=== PATIENT | female | born 1945 | race Caucasian/White ===

== ENCOUNTER → 2017-09-06 07:36 | Outpatient (CLI) | payer MEDICARE, SELFPAY ==
[2017-09-06 10:29] LABS: Absolute Neutrophil Count 3.8 X10^3/uL (2.0-7.7); Basophil# 0.06 X10^3/uL; Basophil% 0.9 % (0-1); Eosinophil# 0.18 X10^3/uL; Eosinophils% 2.7 % (0-5); Hematocrit 45.6 % (37-47); Lymphocyte % 31.4 % (19-41); Mean Corp Hgb Conc 32.9 g/gl (32-36); Mean Corpuscular Hgb 31.6 pg (27.0-32.0); Mean Corpuscular Volume 96.2 fL (81-99); Mean Platelet Vol. 10.3 fl (6.2-12.0); Monocyte# 0.51 X10^3/uL; Monocyte% 7.6 % (0-10); Neutrophil # 3.83 X10^3/uL (2.7-7.7); Neutrophil % 57.3 % (47-70); Platelet Count 353 K/mm3 (150-450); RBC Distribution Width SD 45.3 fl (35.1-43.9); Red Blood Count 4.74 M/mm3 (4.2-5.4); White Blood Count 6.7 K/mm3 (4.4-11.0)
[2017-09-06 10:43] LABS: POSITIVE COUNT NO; POSITIVE DIFFERENTIAL NO; POSITIVE MORPHOLOGY NO
[2017-09-06 10:50] LABS: Hemoglobin A1c 5.6 % (4.2-6.3)
[2017-09-06 10:58] LABS: AST(SGOT) 20 U/L (15-37); Alanine Aminotransfer ALT/SGPT 28 U/L (13-56); Albumin, Serum 3.8 g/dL (3.2-5.0); Alkaline Phosphatase 72 U/L (45-117); Anion Gap 7 (5-15); BUN 19 mg/dL (7-18); BUN/Creat Ratio 19.1 RATIO (10-20); Calcium,Total 8.5 mg/dL (8.5-10.1); Chloride 106 mmol/L (98-107); Creatinine, Serum 0.99 mg/dL (0.55-1.02); EST Glomerular Filtration Rate 59 mL/min (>60); Est Glom Filt Rate - Afr Amer 71 mL/min (>60); Globulin 3.8 g/dL (2.2-4.2); Glucose 93 mg/dL (74-106); Magnesium 2.1 mg/dL (1.6-2.6); Potassium 4.1 mmol/L (3.5-5.1); Protein, Total 7.6 g/dL (6.4-8.2); Sodium Level 141 mmol/L (136-145); Thyroid Stim Hormone (TSH) 6.74 uIU/mL (0.358-3.74)
== END ==
PROVIDERS: Family Provider Family Medicine; PCP Family Medicine; Visit Provider Family Medicine
DX: E11.8 Type 2 diabetes mellitus with unspecified complications (principal); W19.XXXA Unspecified fall, initial encounter
CPT/HCPCS: 36415; 80053; 83036; 83735; 84443; 85025

== ENCOUNTER → 2017-10-31 14:18 | Outpatient (CLI) | payer MEDICARE, SELFPAY ==
[2017-10-31 16:19] LABS: T4 Free Direct 0.92 ng/dL (0.76-1.46)
== END ==
PROVIDERS: Family Provider Family Medicine; PCP Family Medicine; Visit Provider Family Medicine
DX: R94.6 Abnormal results of thyroid function studies (principal)
CPT/HCPCS: 84439; 84443

== ENCOUNTER → 2018-01-09 12:46 | Outpatient (CLI) | payer MEDICARE, SELFPAY ==
--- NOTE | 2018-01-11 08:23 | UEAS ---
Arterial Study - Arterial Study Arterial Study: date of scan: 01-09-18 interpreting physician: Dr. Deni Gruber history:subclavian steal syndrome interpretation: Right upper extremity with decreased waveform noted biphasic flow from the radial and ulnar arteries. With the digit brachial index 0.66. Left upper extremity with triphasic flow noted at the wrist to the radial and ulna with the digit brachial index 0.87. Impression: 1. Moderate occlusive disease of the right upper extremity with digit brachial index 0.66. 2. Left upper extremity with normal digit brachial index is 0.87 and triphasic flow
== END ==
PROVIDERS: Family Provider Family Medicine; PCP Family Medicine; Visit Provider Surgery Vascular Surgery
DX: G45.8 Other transient cerebral ischemic attacks and related syndromes (principal); I65.23 Occlusion and stenosis of bilateral carotid arteries; Z86.73 Personal history of transient ischemic attack (TIA), and cerebral infarction without residual deficits; Z87.891 Personal history of nicotine dependence
CPT/HCPCS: 93880; 93923; 93930

== ENCOUNTER → 2018-03-23 14:40 | Outpatient (CLI) | payer MEDICARE, SELFPAY ==
[2018-03-23 16:07] LABS: Absolute Lymphocyte Count 1.82 X10^3/ul (0.83-4.51); Absolute Neutrophil Count 3.9 X10^3/uL (2.0-7.7); Basophil# 0.04 X10^3/uL; Basophil% 0.6 % (0-1); Eosinophil# 0.14 X10^3/uL; Eosinophils% 2.2 % (0-5); Hematocrit 41.4 % (37-47); Hemoglobin 13.6 g/dl (12.0-15.0); Lymphocyte # 1.82 X10^3/ul (4.0); Lymphocyte % 28.1 % (19-41); Mean Corp Hgb Conc 32.9 g/gl (32-36); Mean Corpuscular Hgb 32.8 pg (27.0-32.0); Mean Corpuscular Volume 99.8 fL (81-99); Monocyte# 0.58 X10^3/uL; Neutrophil # 3.89 X10^3/uL (2.7-7.7); Neutrophil % 59.9 % (47-70); Platelet Count 305 K/mm3 (150-450); RBC Distribution Width CV 12.6 % (11.6-14.6); RBC Distribution Width SD 44.9 fl (35.1-43.9); Red Blood Count 4.15 M/mm3 (4.2-5.4); White Blood Count 6.5 K/mm3 (4.4-11.0)
[2018-03-23 16:21] LABS: POSITIVE COUNT NO; POSITIVE DIFFERENTIAL NO; POSITIVE MORPHOLOGY NO
[2018-03-23 16:36] LABS: Vitamin D,25 Hydroxy 33.2 ng/mL (29.95-100.01)
[2018-03-23 16:41] LABS: ALB/GLOB Ratio 0.8 RATIO (0.9-2.4); AST(SGOT) 20 U/L (15-37); Alanine Aminotransfer ALT/SGPT 28 U/L (13-56); Albumin, Serum 3.4 g/dL (3.2-5.0); Alkaline Phosphatase 91 U/L (45-117); Anion Gap 7 (5-15); BUN 24 mg/dL (7-18); BUN/Creat Ratio 23.1 RATIO (10-20); CPK Total, Creatine Kinase 48 U/L (26-192); CRP 7.34 mg/L (0.0-3.0); Calcium,Total 8.7 mg/dL (8.5-10.1); Chloride 104 mmol/L (98-107); Creatinine, Serum 1.04 mg/dL (0.55-1.02); EST Glomerular Filtration Rate 56 mL/min (>60); Est Glom Filt Rate - Afr Amer 67 mL/min (>60); Glucose 81 mg/dL (74-106); Magnesium 2.1 mg/dL (1.6-2.6); Potassium 3.7 mmol/L (3.5-5.1); Protein, Total 7.4 g/dL (6.4-8.2); Sodium Level 138 mmol/L (136-145); Thyroid Stim Hormone (TSH) 4.74 uIU/mL (0.358-3.74)
== END ==
PROVIDERS: Family Provider Family Medicine; PCP Family Medicine; Visit Provider Family Medicine
DX: E11.8 Type 2 diabetes mellitus with unspecified complications (principal); M79.10 Myalgia, unspecified site
CPT/HCPCS: 36415; 80053; 82306; 82550; 83735; 84443; 85025; 86140

== ENCOUNTER → 2018-08-22 | Outpatient (CLI) | payer MEDICARE, SELFPAY ==
--- NOTE | 2018-08-22 13:33 | BI_ITS ---
MAMMOGRAPHY - BILATERAL SCREENING REASON FOR EXAM: Female, 73 years old. Routine annual screening examination. PERTINENT HISTORY: Grandmother with breast cancer. TECHNIQUE: Digital bilateral breast rosalba (3D mammographic acquisition) in the CC and MLO projections. 2-D mediolateral oblique (MLO) and craniocaudad (CC) views of both breasts were obtained. CAD: Full Field Digital Mammography with Computer Added Detection was performed. COMPARISON: Comparison is made with prior study June 14, 2016 and January 16, 2015. FINDINGS: Breast Composition: The breasts are almost entirely fatty. There are no dominant masses or suspicious calcifications. Stable 7 mm well-defined nodule in the upper outer aspect of the left breast was likely representing a small intramammary No other significant abnormalities are identified. There has been no significant change since the prior study. BI/SCREENING MAMM (CAD), BILAT IMPRESSION: Stable bilateral screening mammogram. Yearly follow-up mammogram recommended. (A) ASSESSMENT CATEGORY: BIRADS Category 2: Benign. A letter regarding these results will be sent to the patient by the facility within 30 days. Approximately 10% of breast cancers are not detected by mammography. A normal mammogram should not delay biopsy of a clinically suspicious abnormality. [id number] Electronically Signed: Felipe Novak, at 15:27 EDT , Service support ,
== END | disposition home or self-care (01) ==
LOC: OPBI 13:31
PROVIDERS: Family Provider Family Medicine; PCP Family Medicine; Referring Provider Family Medicine; Visit Provider Family Medicine
DX: Z12.31 Encounter for screening mammogram for malignant neoplasm of breast (principal)
CPT/HCPCS: 77063; 77067

== ENCOUNTER → 2018-09-19 16:46 | Outpatient (CLI) | payer MEDICARE, SELFPAY ==
[2018-09-19 17:43] LABS: Absolute Lymphocyte Count 2.21 X10^3/ul (0.83-4.51); Absolute Neutrophil Count 4.7 X10^3/uL (2.0-7.7); Basophil# 0.03 X10^3/uL; Basophil% 0.4 % (0-1); Eosinophil# 0.19 X10^3/uL; Eosinophils% 2.4 % (0-5); Hematocrit 44.3 % (37-47); Hemoglobin 14.6 g/dl (12.0-15.0); Lymphocyte # 2.21 X10^3/ul (4.0); Lymphocyte % 28.2 % (19-41); Mean Corpuscular Hgb 31.3 pg (27.0-32.0); Mean Corpuscular Volume 95.1 fL (81-99); Mean Platelet Vol. 10.3 fl (6.2-12.0); Monocyte# 0.69 X10^3/uL; Monocyte% 8.8 % (0-10); Neutrophil % 60.1 % (47-70); Platelet Count 309 K/mm3 (150-450); RBC Distribution Width CV 13.7 % (11.6-14.6); RBC Distribution Width SD 46.4 fl (35.1-43.9); Red Blood Count 4.66 M/mm3 (4.2-5.4); White Blood Count 7.8 K/mm3 (4.4-11.0)
[2018-09-19 17:47] LABS: POSITIVE COUNT NO; POSITIVE DIFFERENTIAL NO; POSITIVE MORPHOLOGY NO
[2018-09-19 18:10] LABS: ALB/GLOB Ratio 1.1 RATIO (0.9-2.4); AST(SGOT) 25 U/L (15-37); Alanine Aminotransfer ALT/SGPT 35 U/L (13-56); Albumin, Serum 3.7 g/dL (3.2-5.0); Alkaline Phosphatase 88 U/L (45-117); Anion Gap 8 (5-15); BUN 21 mg/dL (7-18); BUN/Creat Ratio 22.1 RATIO (10-20); Calcium,Total 8.7 mg/dL (8.5-10.1); Chloride 107 mmol/L (98-107); Creatinine, Serum 0.95 mg/dL (0.55-1.02); EST Glomerular Filtration Rate 61 mL/min (>60); Est Glom Filt Rate - Afr Amer 74 mL/min (>60); Globulin 3.4 g/dL (2.2-4.2); Glucose 86 mg/dL (74-106); Potassium 4.1 mmol/L (3.5-5.1); Protein, Total 7.1 g/dL (6.4-8.2); Sodium Level 140 mmol/L (136-145); Thyroid Stim Hormone (TSH) 4.19 uIU/mL (0.358-3.74)
== END ==
PROVIDERS: Family Provider Family Medicine; PCP Family Medicine; Visit Provider Nurse Practitioner Adult Health
DX: R53.83 Other fatigue (principal)
CPT/HCPCS: 36415; 80053; 84443; 85025

== ENCOUNTER → 2018-11-14 10:30 | Outpatient (CLI) | payer MEDICARE, SELFPAY ==
[2018-11-14 12:32] LABS: Anion Gap 6 (5-15); BUN 29 mg/dL (7-18); BUN/Creat Ratio 26.6 RATIO (10-20); Chloride 106 mmol/L (98-107); Creatinine, Serum 1.09 mg/dL (0.55-1.02); EST Glomerular Filtration Rate 53 mL/min (>60); Est Glom Filt Rate - Afr Amer 64 mL/min (>60); Glucose 96 mg/dL (74-106); Magnesium 2.1 mg/dL (1.6-2.6); Potassium 4.4 mmol/L (3.5-5.1); Sodium Level 139 mmol/L (136-145)
[2018-11-14 16:13] LABS: ALB/GLOB Ratio 1.2 RATIO (0.9-2.4); AST(SGOT) 21 U/L (15-37); Alanine Aminotransfer ALT/SGPT 29 U/L (13-56); Albumin, Serum 3.6 g/dL (3.2-5.0); Alkaline Phosphatase 73 U/L (45-117); Globulin 2.9 g/dL (2.2-4.2); Protein, Total 6.5 g/dL (6.4-8.2)
== END ==
PROVIDERS: Family Provider Family Medicine; PCP Family Medicine; Referring Provider Family Medicine; Visit Provider Family Medicine
DX: R42 Dizziness and giddiness (principal)
CPT/HCPCS: 36415; 80048; 80053; 83735

== ENCOUNTER → 2019-04-16 10:31 | Outpatient (CLI) | payer MEDICARE, SELFPAY ==
[2019-04-16 12:35] LABS: Absolute Lymphocyte Count 1.68 X10^3/uL (0.83-4.51); Absolute Neutrophil Count 6.6 X10^3/uL (2.0-7.7); Basophil# 0.06 X10^3/uL; Basophil% 0.6 % (0-1); Eosinophil# 0.07 X10^3/uL; Eosinophils% 0.8 % (0-5); Hematocrit 45.2 % (37-47); Hemoglobin 14.5 g/dL (12.0-15.0); Lymphocyte # 1.68 X10^3/ul (4.0); Lymphocyte % 18.1 % (19-41); Mean Corp Hgb Conc 32.1 g/dL (32-36); Mean Corpuscular Hgb 31.9 pg (27.0-32.0); Mean Corpuscular Volume 99.3 fL (81-99); Mean Platelet Vol. 10.2 fl (6.2-12.0); Monocyte% 8.6 % (0-10); NRBC Flagged by Analyzer 0 % (0-5); Neutrophil # 6.64 X10^3/uL (2.7-7.7); Neutrophil % 71.7 % (47-70); Platelet Count 305 K/mm3 (150-450); RBC Distribution Width CV 12.6 % (11.6-14.6); Red Blood Count 4.55 M/mm3 (4.2-5.4); White Blood Count 9.3 K/mm3 (4.4-11.0)
[2019-04-16 12:39] LABS: ALB/GLOB Ratio 1.1 RATIO (0.9-2.4); AST(SGOT) 29 U/L (15-37); Alanine Aminotransfer ALT/SGPT 34 U/L (13-56); Albumin, Serum 3.7 g/dL (3.2-5.0); Alkaline Phosphatase 68 U/L (45-117); Anion Gap 6 (5-15); BUN 19 mg/dL (7-18); BUN/Creat Ratio 17.1 RATIO (10-20); Calcium,Total 9.1 mg/dL (8.5-10.1); Chloride 105 mmol/L (98-107); Creatinine, Serum 1.11 mg/dL (0.55-1.02); EST Glomerular Filtration Rate 51 mL/min (>60); Est Glom Filt Rate - Afr Amer 62 mL/min (>60); Globulin 3.5 g/dL (2.2-4.2); Glucose 96 mg/dL (74-106); Potassium 4.5 mmol/L (3.5-5.1); Protein, Total 7.2 g/dL (6.4-8.2); Sodium Level 138 mmol/L (136-145); T4 Free Direct 1.01 ng/dL (0.76-1.46); Thyroid Stim Hormone (TSH) 4.21 uIU/mL (0.358-3.74)
== END ==
PROVIDERS: Family Provider Family Medicine; PCP Family Medicine; Referring Provider Family Medicine; Visit Provider Family Medicine
DX: R53.83 Other fatigue (principal)
CPT/HCPCS: 36415; 80053; 84439; 84443; 85025

== ENCOUNTER → 2019-04-19 09:41 | Outpatient (CLI) | payer MEDICARE, SELFPAY ==
--- NOTE | 2019-04-19 09:43 | CDU_ITS ---
Reason For Study: Left carotid bruit Rt. Velocities/BP Lt. Velocities/BP Prox CCA 108.6/10.8 cm/sec. Prox CCA 124.7/13.3 cm/sec. Mid CCA 112.5/8.2 cm/sec. Mid CCA 133.9/7.6 cm/sec. Dist CCA 94.3./8.2 cm/sec. Dist CCA 113.8/7.9 cm/sec. Prox ICA 113.8/7.9 cm/sec. Prox ICA 128.0/7.2 cm/sec. Mid ICA 110.1/13.3 cm/sec. Mid ICA 95.5/11.5 cm/sec. Dist ICA 100/11.3 cm/sec. Dist ICA 97.4/9.7 cm/sec. Rt. ICA/CCA = 1.0. Lt. ICA/CCA = 1.0. Prox ECA 172.6 cm/sec. Prox ECA 298.4 cm/sec. Rt. Vert. 53.5/7.9 cm/sec. Lt. Vert. 86.4/13.3 cm/sec. Right Extracranial There is homogeneous, smooth atherosclerotic plaque noted in the right common carotid artery. There is intimal thickening but no significant atherosclerotic plaque noted in the right internal carotid artery. There is intimal thickening but no significant atherosclerotic plaque noted in the right external carotid artery. Antegrade flow is noted in the right vertebral artery. Left Extracranial There is homogeneous, smooth atherosclerotic plaque noted in the left common carotid artery. There is intimal thickening but no significant atherosclerotic plaque noted in the left internal carotid artery. There is homogeneous, smooth atherosclerotic plaque noted in the left external carotid artery. Antegrade flow is noted in the left vertebral artery. Procedure Carotid Duplex [id number]. The exam was diagnostic. Exam performed in department. Interpretation Summary Mild (<50%) stenosis right extracranial internal carotid. Moderate (50-69%) stenosis left extracranial internal carotid. Flow within the vertebral arteries is antegrade bilaterally. Ordering Physician: Florin Aragon Referring Physician: MD Deni Gruber Performed By: Gerber Menon RVT
== END ==
PROVIDERS: Family Provider Family Medicine; PCP Family Medicine; Referring Provider Family Medicine; Visit Provider Family Medicine
DX: R09.89 Other specified symptoms and signs involving the circulatory and respiratory systems (principal)
CPT/HCPCS: 93880

== ENCOUNTER → 2019-07-16 14:13 | Outpatient (CLI) | payer MEDICARE, SELFPAY ==
[2019-07-16 18:25] LABS: T4 Free Direct 0.99 ng/dL (0.76-1.46); Thyroid Stim Hormone (TSH) 3.56 uIU/mL (0.358-3.74)
== END ==
PROVIDERS: PCP Family Medicine; Referring Provider Family Medicine; Visit Provider Family Medicine
DX: E11.8 Type 2 diabetes mellitus with unspecified complications (principal)
CPT/HCPCS: 36415; 84439; 84443

== ENCOUNTER → 2019-08-27 12:24 | Outpatient (CLI) | payer MEDICARE, SELFPAY ==
--- NOTE | 2019-08-27 12:31 | BI_ITS ---
MAMMOGRAPHY - BILATERAL SCREENING REASON FOR EXAM: Female, 74 years old. Routine annual screening examination. PERTINENT HISTORY: Grandmother with breast cancer. TECHNIQUE: Digital bilateral breast lawanda (3D mammographic acquisition) in the CC and MLO projections. 2-D mediolateral oblique (MLO) and craniocaudad (CC) views of both breasts were obtained. CAD: Full Field Digital Mammography with Computer Added Detection was performed. COMPARISON: Comparison is made with prior examination dated August 22, 2018 and June 14, 2016. FINDINGS: Breast Composition: The breasts are almost entirely fatty. There are no dominant masses or suspicious calcifications. Stable 7 mm well-defined nodule in the upper outer aspect of the left breast. This most likely represents a small lymph node. Stable benign-appearing bilateral axillary nodes. No other significant abnormalities are identified. There has been no significant change since the prior study. BI/SCREEN MAMM (CAD) W/LAWANDA BILAT IMPRESSION: Stable bilateral screening mammogram. Yearly follow-up mammogram recommended. (A) ASSESSMENT CATEGORY: BIRADS Category 2: Benign. A letter regarding these results will be sent to the patient by the facility within 30 days. Approximately 10% of breast cancers are not detected by mammography. A normal mammogram should not delay biopsy of a clinically suspicious abnormality. [id number] Electronically Signed: Felipe Novak, at 15:08 EDT , Service support ,
== END ==
PROVIDERS: PCP Family Medicine; Referring Provider Family Medicine; Visit Provider Family Medicine
DX: Z12.31 Encounter for screening mammogram for malignant neoplasm of breast (principal)
CPT/HCPCS: 77063; 77067

== ENCOUNTER → 2019-09-24 11:42 | Outpatient (CLI) | payer MEDICARE, SELFPAY ==
[2019-09-24 15:09] LABS: Thyroid Stim Hormone (TSH) 2.52 uIU/mL (0.358-3.74)
== END ==
PROVIDERS: PCP Family Medicine; Visit Provider Nurse Practitioner Adult Health
DX: R53.83 Other fatigue (principal)
CPT/HCPCS: 36415; 84443

== ENCOUNTER → 2019-11-26 20:33 | Outpatient (CLI) | payer MEDICARE, SELFPAY | PROVIDERS: PCP Family Medicine; Referring Provider Psychiatry & Neurology Neurology; Visit Provider Psychiatry & Neurology Neurology | DX: G47.33 Obstructive sleep apnea (adult) (pediatric) (principal) | CPT/HCPCS: 95811 ==

== ENCOUNTER → 2019-12-06 11:08 | Outpatient (CLI) | payer MEDICARE, SELFPAY ==
[2019-12-06 11:26] LABS: Lyme Ab Screen Interpretation REF LAB
[2019-12-06 15:05] LABS: Absolute Lymphocyte Count 1.77 X10^3/uL (0.83-4.51); Absolute Neutrophil Count 5.4 X10^3/uL (2.0-7.7); Basophil# 0.05 X10^3/uL; Basophil% 0.6 % (0-1); Eosinophils% 1.3 % (0-5); Hematocrit 43.4 % (37-47); Hemoglobin 13.9 g/dL (12.0-15.0); Lymphocyte # 1.77 X10^3/ul (4.0); Lymphocyte % 22.3 % (19-41); Mean Corpuscular Hgb 32.4 pg (27.0-32.0); Mean Corpuscular Volume 101.2 fL (81-99); Mean Platelet Vol. 10.1 fl (6.2-12.0); Monocyte# 0.63 X10^3/uL; Monocyte% 7.9 % (0-10); NRBC Flagged by Analyzer 0 % (0-5); Neutrophil # 5.39 X10^3/uL (2.7-7.7); Neutrophil % 67.8 % (47-70); Platelet Count 282 K/mm3 (150-450); RBC Distribution Width CV 13.2 % (11.6-14.6); RBC Distribution Width SD 49.1 fl (35.1-43.9); Red Blood Count 4.29 M/mm3 (4.2-5.4)
[2019-12-06 15:28] LABS: Vitamin B12 585 pg/mL (211-911); Vitamin D,25 Hydroxy 54.4 ng/mL
[2019-12-06 16:10] LABS: ALB/GLOB Ratio 1.1 RATIO (0.9-2.4); AST(SGOT) 17 U/L (15-37); Alanine Aminotransfer ALT/SGPT 28 U/L (13-56); Albumin, Serum 3.7 g/dL (3.2-5.0); Alkaline Phosphatase 76 U/L (45-117); Anion Gap 4 (5-15); BUN 27 mg/dL (7-18); BUN/Creat Ratio 26.5 RATIO (10-20); CRP < 2.90 mg/L (0.0-3.0); Calcium,Total 8.7 mg/dL (8.5-10.1); Chloride 108 mmol/L (98-107); Creatinine, Serum 1.02 mg/dL (0.55-1.02); EST Glomerular Filtration Rate 57 mL/min (>60); Est Glom Filt Rate - Afr Amer 68 mL/min (>60); Ferritin 95 ng/mL (8-252); Free T3 2.7 pg/mL (2.18-3.98); Globulin 3.3 g/dL (2.2-4.2); Glucose 90 mg/dL (74-106); Magnesium 2.2 mg/dL (1.6-2.6); Sodium Level 140 mmol/L (136-145); T4 Free Direct 1.13 ng/dL (0.76-1.46)
[2019-12-10 16:08] LABS: Endomysial Antibody IgA Negative (Negative); Immunoglobulin A 262 mg/dL (64-422)
[2019-12-10 19:42] LABS: Lyme Scn Total Ab w/Rflx <0.91 ISR (0.00-0.90); t-Transglutaminase IgA <2 U/mL (0-3)
[2019-12-11 14:09] LABS: Beef <0.10 kU/L (Class 0); Chocolate <0.10 kU/L (Class 0); Corn <0.10 kU/L (Class 0); Egg, Whole 0.27 kU/L (Class 0/I); Milk (Cow) 0.33 kU/L (Class I); Peanut <0.10 kU/L (Class 0); Pork <0.10 kU/L (Class 0); Soybean <0.10 kU/L (Class 0); Wheat <0.10 kU/L (Class 0)
[2019-12-11 15:27] LABS: ANTINUCLEAR ANTIBODIES DIRECT Negative (Negative)
== END ==
PROVIDERS: PCP Family Medicine; Referring Provider Family Medicine; Visit Provider Family Medicine
DX: E11.8 Type 2 diabetes mellitus with unspecified complications (principal); R53.83 Other fatigue; K58.9 Irritable bowel syndrome, unspecified; J30.9 Allergic rhinitis, unspecified; E55.9 Vitamin D deficiency, unspecified
CPT/HCPCS: 80053; 82306; 82607; 82728; 82746; 82784; 83516; 83735; 84439; 84481; 85025; 86003; 86005; 86038; 86140; 86255; 86618

== ENCOUNTER → 2020-02-18 12:40 | Outpatient (CLI) | payer MEDICARE, SELFPAY ==
--- NOTE | 2020-02-18 12:44 | ART_ITS ---
Reason For Study: subclavian steal syndrome Procedure A bilateral upper extremity continuous wave Doppler with analog waveform analysis and segmental pressures. Left Segmental Pressures Left brachial= 157mmHg. Left radial= 170mmHg. Left ulnar= 166mmHg. Left digit = 144 mmHg. Right Segmental Pressures Right brachial= 94mmHg. Right radial= 93mmHg. Right ulnar= 79mmHg. Right digit = 80 mmHg. The right radial waveforms are monophasic. The right ulnar waveforms are monophasic. Indices The right wrist-brachial index is .59. The right digital-brachial index is .51. The left wrist- brachial index is 1.08. The left digital-brachial index is .92. Interpretation Summary Moderate occlussive disease right arm with WBI 0.59 and monophasic flow. Left arm triphasic and 1.08. Ordering Physician: Deni Gruber Performed By: FIFI HARMON Ashley
--- NOTE | 2020-02-18 12:44 | CDU_ITS ---
Reason For Study: HX CVA, carotid stenosis Rt. Velocities/BP Lt. Velocities/BP Prox CCA 91.7/6.9 cm/sec. Prox CCA 91.7/8.2 cm/sec. Mid CCA 96.9/9.5 cm/sec. Mid CCA 106.0/8.2 cm/sec. Dist CCA 89.1/5.6 cm/sec. Dist CCA 93.0/6.9 cm/sec. Prox ICA 85.1/5.3 cm/sec. Prox ICA 128.4/7.9 cm/sec. Mid ICA 79.0/7.7 cm/sec. Mid ICA 108.3/13.3 cm/sec. Dist ICA 117.0/13.9 cm/sec. Dist ICA 132.1/18.8 cm/sec. Rt. ICA/CCA = 1.2. Lt. ICA/CCA = 1.2. Prox ECA 168.1/2.9 cm/sec. Prox ECA 271.3 cm/sec. Rt. Vert. 56.9 cm/sec. Lt. Vert. 66.5/8.3 cm/sec. Right Extracranial There is homogeneous, smooth atherosclerotic plaque noted in the right common carotid artery. There is intimal thickening but no significant atherosclerotic plaque noted in the right internal carotid artery. There is intimal thickening but no significant atherosclerotic plaque noted in the right external carotid artery. Antegrade flow is noted in the right vertebral artery. Left Extracranial There is homogeneous, smooth atherosclerotic plaque noted in the left common carotid artery. There is intimal thickening but no significant atherosclerotic plaque noted in the left internal carotid artery. There is homogeneous, smooth atherosclerotic plaque noted in the left external carotid artery. Antegrade flow is noted in the left vertebral artery. Procedure Carotid Duplex [id number]. The exam was diagnostic. Exam performed in department. Interpretation Summary Mild (<50%) stenosis right extracranial internal carotid. Moderate (50-69%) stenosis left extracranial internal carotid. Flow within the vertebral arteries is antegrade bilaterally. Ordering Physician: Deni Gruber Performed By: Gerber Menon RVT
== END ==
PROVIDERS: PCP Family Medicine; Referring Provider Surgery Vascular Surgery; Visit Provider Surgery Vascular Surgery
DX: G45.8 Other transient cerebral ischemic attacks and related syndromes (principal); Z86.73 Personal history of transient ischemic attack (TIA), and cerebral infarction without residual deficits
CPT/HCPCS: 93880; 93922; 93931

== ENCOUNTER → 2020-06-10 07:39 | Outpatient (CLI) | payer MEDICARE, SELFPAY ==
[2020-06-10 10:37] LABS: Absolute Lymphocyte Count 1.94 X10^3/uL (0.83-4.51); Absolute Neutrophil Count 3.2 X10^3/uL (2.0-7.7); Basophil# 0.06 X10^3/uL; Eosinophil# 0.15 X10^3/uL; Eosinophils% 2.6 % (0-5); Hematocrit 43.7 % (37-47); Hemoglobin 14.3 g/dL (12.0-15.0); Lymphocyte # 1.94 X10^3/ul (4.0); Lymphocyte % 33.2 % (19-41); Mean Corp Hgb Conc 32.7 g/dL (32-36); Mean Corpuscular Hgb 32.8 pg (27.0-32.0); Mean Corpuscular Volume 100.2 fL (81-99); Mean Platelet Vol. 10.2 fl (6.2-12.0); Monocyte# 0.51 X10^3/uL; Monocyte% 8.7 % (0-10); NRBC Flagged by Analyzer 0 % (0-5); Neutrophil # 3.17 X10^3/uL (2.7-7.7); Neutrophil % 54.3 % (47-70); Platelet Count 343 K/mm3 (150-450); RBC Distribution Width CV 12.2 % (11.6-14.6); RBC Distribution Width SD 45.6 fl (35.1-43.9); Red Blood Count 4.36 M/mm3 (4.2-5.4); White Blood Count 5.8 K/mm3 (4.4-11.0)
[2020-06-10 10:57] LABS: Hemoglobin A1c 5.5 % (3.8-5.6)
[2020-06-10 11:10] LABS: AST(SGOT) 19 U/L (15-37); Alanine Aminotransfer ALT/SGPT 28 U/L (13-56); Albumin, Serum 3.6 g/dL (3.2-5.0); Alkaline Phosphatase 80 U/L (45-117); Anion Gap 5 (5-15); BUN 23 mg/dL (7-18); BUN/Creat Ratio 22.1 RATIO (10-20); Calcium,Total 8.8 mg/dL (8.5-10.1); Chloride 106 mmol/L (98-107); Cholesterol 130 mg/dL (200); Creatinine, Serum 1.04 mg/dL (0.55-1.02); EST Glomerular Filtration Rate 55 mL/min (>60); Est Glom Filt Rate - Afr Amer 67 mL/min (>60); Globulin 3.6 g/dL (2.2-4.2); Glucose 86 mg/dL (74-106); High Density Lipoprotein 62 mg/dL; Potassium 3.6 mmol/L (3.5-5.1); Protein, Total 7.2 g/dL (6.4-8.2); Sodium Level 138 mmol/L (136-145); Thyroid Stim Hormone (TSH) 4.66 uIU/mL (0.358-3.74); Triglycerides 91 mg/dL; Very Low Density Lipoprotein 18 mg/dL (5-40)
== END ==
PROVIDERS: PCP Family Medicine; Referring Provider Family Medicine; Visit Provider Family Medicine
DX: K58.9 Irritable bowel syndrome, unspecified (principal); E11.8 Type 2 diabetes mellitus with unspecified complications
CPT/HCPCS: 36415; 80053; 80061; 83036; 84443; 85025

== ENCOUNTER → 2020-09-01 07:45 | Outpatient (CLI) | payer MEDICARE, SELFPAY ==
[2020-09-01 10:16] LABS: T4 Free Direct 1.17 ng/dL (0.76-1.46); Thyroid Stim Hormone (TSH) 4.77 uIU/mL (0.358-3.74)
== END ==
PROVIDERS: PCP Family Medicine; Referring Provider Family Medicine; Visit Provider Family Medicine
DX: E03.9 Hypothyroidism, unspecified (principal)
CPT/HCPCS: 36415; 84439; 84443

== ENCOUNTER → 2020-10-29 07:25 | Outpatient (CLI) | payer MEDICARE, SELFPAY ==
[2020-10-29 10:43] LABS: Hemoglobin A1c 5.4 % (3.8-5.6)
[2020-10-29 11:00] LABS: ALB/GLOB Ratio 1.2 RATIO (0.9-2.4); AST(SGOT) 18 U/L (15-37); Alanine Aminotransfer ALT/SGPT 25 U/L (13-56); Albumin, Serum 3.7 g/dL (3.2-5.0); Alkaline Phosphatase 80 U/L (45-117); Anion Gap 8 (5-15); BUN 20 mg/dL (7-18); BUN/Creat Ratio 20.3 RATIO (10-20); Calcium,Total 8.9 mg/dL (8.5-10.1); Chloride 110 mmol/L (98-107); Cholesterol 156 mg/dL (200); Creatinine, Serum 0.98 mg/dL (0.55-1.02); EST Glomerular Filtration Rate 59 mL/min (>60); Est Glom Filt Rate - Afr Amer 71 mL/min (>60); Glucose 99 mg/dL (74-106); High Density Lipoprotein 61 mg/dL; Potassium 3.9 mmol/L (3.5-5.1); Protein, Total 6.7 g/dL (6.4-8.2); Sodium Level 140 mmol/L (136-145); Thyroid Stim Hormone (TSH) 3.32 uIU/mL (0.358-3.74); Triglycerides 102 mg/dL; Very Low Density Lipoprotein 20 mg/dL (5-40)
== END ==
PROVIDERS: PCP Family Medicine; Referring Provider Family Medicine; Visit Provider Family Medicine
DX: K58.2 Mixed irritable bowel syndrome (principal); E03.9 Hypothyroidism, unspecified; E11.51 Type 2 diabetes mellitus with diabetic peripheral angiopathy without gangrene
CPT/HCPCS: 36415; 80053; 80061; 83036; 84439; 84443

== ENCOUNTER → 2020-12-04 15:47 | Outpatient (CLI) | payer MEDICARE, SELFPAY ==
--- NOTE | 2020-12-04 15:50 | BI_ITS ---
MAMMOGRAPHY - BILATERAL SCREENING REASON FOR EXAM: Female, 75 years old. Routine annual screening examination. PERTINENT HISTORY: Grandmother with breast cancer. TECHNIQUE: Digital bilateral breast rosalba (3D mammographic acquisition) in the CC and MLO projections. 2-D mediolateral oblique (MLO) and craniocaudad (CC) views of both breasts were obtained. CAD: Full Field Digital Mammography with Computer Added Detection was performed. COMPARISON: Comparison is made with prior study dated 08/27/2019 and 08/22/2018. FINDINGS: Breast Composition: The breasts are almost entirely fatty. There are no dominant masses or suspicious calcifications. Stable 7 mm well-defined nodule in the upper outer aspect of the left breast. A central notch is seen within it and most likely represents a small benign appearing lymph node. No other significant abnormalities are identified. There has been no significant change since the prior study. BI/SCREENING MAMM (CAD), BILAT IMPRESSION: Stable bilateral screening mammogram. Yearly follow-up mammogram recommended. (A) ASSESSMENT CATEGORY: BIRADS Category 2: Benign. A letter regarding these results will be sent to the patient by the facility within 30 days. Approximately 10% of breast cancers are not detected by mammography. A normal mammogram should not delay biopsy of a clinically suspicious abnormality. [id number] Electronically Signed: Felipe Novak MD at 8:50 EDT , Service support ,
== END ==
PROVIDERS: PCP Family Medicine; Referring Provider Family Medicine; Visit Provider Family Medicine
DX: Z12.31 Encounter for screening mammogram for malignant neoplasm of breast (principal)
CPT/HCPCS: 77067

== ENCOUNTER 2020-12-15 11:30 | Outpatient (RCR) | payer MEDICARE, SELFPAY ==
--- NOTE | 2020-11-03 12:00 | HP.PTEVAL ---
Patient's Visit Information CRISTINO NOLAN is a 75 year old F referred to Physical Therapy by Dr. Florin Aragon MD with a diagnosis of DM, weight gain. Date of Evaluation: 11/03/20 Physical Therapist: GUILLERMO Hall - Visit Plan Frequency: 1x/Week Duration: 4 Weeks Plan: Increase water intake. 1X/ week for 4 weeks for I on Gym routine for general strength and mobility ( Nu-step, Leg press, seated hip abd/add, some standing at bar exercises, slant Board, maybe a hip flexor stretch). HEP: bridges, standing hip flex/abd, LTR, standing heel and toe raises - Subjective She has had DM a couple of years ago. She has not had much exercise. She has fatigue and can not do anything. She was low on thyroid and it did not do much of anything. She has sleep apnea and she has a c-pap. She also has irritable bowl syndrome and it has been flarign up this week. So her fatigue is her being tired and no energy and wanting to fall asleep again by 9:30-10 am. Her DM is controlled by diet. Her average blood sugar is around 120-125 first thing in the morning before breakfast and A1C is below 6. She has gained some weight over the last 2 years. She has a sliver sneakers. She was going to classes but those classes have not opened back up again. In 2013 she had a stroke. She does not drink water. She eats veggies. Pt has aches and pains in B shoulders (previous RC issues) and now moving down her lateral arms, She fell last week and caught flip flop on the edge of the door and she bruised her R knee and R hip, and then a few days later she hurt her L knee, rib muscle cramps, pain in her hands as well. Stairs: up and down with a hand rail. Pt has had a few falls in the last couple of years. - Pain L knee pain Pain Intensity (Out of 10): 3 - Objective Gait: Walks with a normal gait pattern. Pt is able to walk on heels and toes. LE MMT: B hip flex 4-/5, B knee flex 4/5, B knee ext 4-/5, B hip abd 4-/5, pt can do 3/4 normal ROM bridge,. FGA: 27. tight hip flexor, HS, gastroc - Balance Scores Functional Gait Assessment Score: 27 % Disability: 10.0000 - Goals Goal 1:: I HEP/gym routine at least 3X/ week Goal Time Frame: 2-4 Weeks Goal 2:: Pt to feel less mid morning tiredness by 50% Goal Time Frame: 2-4 Weeks Goal 3:: Increase LE strength by 1/2 muscle grade (at time of eval: Goal Time Frame: 2-4 Weeks - Rehabilitation Potential Rehabilitation Potential: Good - Anticipated Interventions Patient/Client Instruction: Educate patient on: Condition, Plan of Care For the Purpose of:: To decrease pain, To decrease swelling/inflammation, To increase ROM, To improve nutrient delivery to tissue, To improve muscle performance and motor function, To improve ability to perform ADL's, To increase tolerance to activity/condition/position, To improve ability of physical actions for home/community/work/leisure, To improve gait and locomotor functions, To improve health of tissue, To decrease soft tissue restriction, To increase flexibility/ROM, To improve balance, To improve safety with gait Therapeutic Exercise to Include: Strength training, Endurance training, Flexibilty training, Gait and locomotor training, Active ROM, Dynamic Lumbar Stabilization For the Purpose of:: To decrease pain, To increase ROM, To improve nutrient delivery to tissue, To improve muscle performance and motor function, To improve ability to perform ADL's, To increase tolerance to activity/condition/position, To improve gait and locomotor functions, To improve health of tissue, To decrease soft tissue restriction, To increase flexibility/ROM, To improve balance, To improve safety with gait, To improve safety, To improve health and function Thank you for the opportunity to evaluate your patient. For Medicare and Medicare HMO plans, please review the plan of care and approve it. It will need to be FAXED BACK to us at [phone] for Medicare purposes. For Medicare only, by signing this I certify the plan of care. Please let me know if there are questions or concerns regarding this plan of care. Physician Signature: Date:
--- NOTE | 2020-12-15 11:51 | HP.PTDCSUM ---
It has been my pleasure to treat CRISTINO NOLAN referred by Dr. Florin Aragon MD, with the diagnosis of DM, weight gain for a total of 8 visit(s). Discharge Date: 12/15/20 Please see the following information for a summary of their discharge status. Subjective: Pt reports that her hip does not hurt anymore. She is ready to do her own gym routine. Pt reports that her mid morning tiredness is better but not perfect. L knee pain Pain Intensity (Out of 10): 3 R buttock and HS pain Pain Intensity (Out of 10): 0 % Improvement: 25 Objective/Function: Pt was given exercises log with above exercises on them with reps. weights and sets. She was able to Olivia set up equipment. LE MMT: B hip flex 4/5, Knee ext B 4/5, B knee flex 4/5, Goal 1:: I HEP/gym routine at least 3X/ week Goal Progress: Goal Met Goal 2:: Pt to feel less mid morning tiredness by 50% Goal Progress: Goal Met Goal 3:: Increase LE strength by 1/2 muscle grade (at time of eval: Goal Progress: Progressing Plan: DC PT to I [facility] Discharge Comments: DC PT to [facility] If there are questions or concerns regarding this patient's physical therapy, please feel free to call me at [phone]. Thank you for the referral of this patient. Sincerely, Arleen Peña, MPT Balance/Gait/Functional tests - Balance/Special Test Scores Functional Gait Assessment Score: 27 % Disability: 10.0000 Lower Extremity Functional Score: 56
== END 2020-12-15 19:00 | disposition home or self-care (01) ==
LOC: PT 11:30
PROVIDERS: PCP Family Medicine; Referring Provider Family Medicine; Visit Provider Family Medicine
DX: E11.9 Type 2 diabetes mellitus without complications (principal); R63.5 Abnormal weight gain
CPT/HCPCS: 97110; 97161

== ENCOUNTER → 2020-12-24 10:40 | Outpatient (CLI) | payer MEDICARE, SELFPAY ==
--- NOTE | 2020-12-24 10:49 | BD_ITS ---
STUDY: DUAL ENERGY X-RAY ABSORPTIOMETRY / DXA REASON FOR EXAM: Female, 75 years old. M85.80. The patient is postmenopausal. Long-term use of PREDNISONE. TECHNIQUE: Bone Mineral Density (BMD) measurements of lumbar spine and bilateral hips were obtained. COMPARISON: None. FINDINGS: Lumbar Spine (L1-L4): g/cm2 (0.821) / T-score (-1.9) / Z-score (-0.2) Findings are suggestive of osteopenia with a moderate fracture risk. Left Femur Total: g/cm2 (0.776) / T-score (-1.4) / Z-score (-0.1) Left Femoral Neck: g/cm2 (0.706) / T-score (-1.3) / Z-score (0.2) Right Femur Total: g/cm2 (0.644) / T-score (-2.4) / Z-score (-1.2) Right Femoral Neck: g/cm2 (0.643) / T-score (-1.9) / Z-score (-0.3) BD/Dexa Bone Density Study IMPRESSION: The patient is considered osteopenic as outlined below according to World Sonny Organization (WHO) criteria with a high fracture risk. Reference Information: The T-score is the number of standard deviations above or below the standard which is normal for young adults at their peak bone mineral density. The World Health Organization (WHO) interprets the T-scores as follows: Above -1 Normal bone density Between -1 and -2.5 Osteopenia Equal to / or below -2.5 Osteoporosis As a practical clinical guideline, osteopenia may be graded as follows: Mild -1 through -1.5 Moderate -1.6 through -2.0 Severe -2.1 through -2.4 The Z-score is the number of standard deviations above or below age-matched controls. A Z-score of less than -1.5 would be considered abnormal. References: 1. NIH Osteoporosis and Related Bone Diseases www osteo.org 2. International Society for Clinical Densitometry www iscd.org 3. National Osteoporosis Foundation www nof.org Electronically Signed: Felipe Novak MD at 20:29 EDT , Service support ,
== END ==
PROVIDERS: PCP Family Medicine; Visit Provider Internal Medicine
DX: Z78.0 Asymptomatic menopausal state (principal); M85.80 Other specified disorders of bone density and structure, unspecified site
CPT/HCPCS: 77080

== ENCOUNTER → 2021-04-21 14:39 | Outpatient (CLI) | payer MEDICARE, SELFPAY ==
[2021-04-21 17:57] LABS: Absolute Lymphocyte Count 1.34 X10^3/uL (0.83-4.51); Absolute Neutrophil Count 5.7 X10^3/uL (2.0-7.7); Basophil# 0.06 X10^3/uL; Basophil% 0.8 % (0-1); Eosinophil# 0.06 X10^3/uL; Eosinophils% 0.8 % (0-5); Hematocrit 43.4 % (37-47); Hemoglobin 14.5 g/dL (12.0-15.0); Lymphocyte # 1.34 X10^3/ul (0.83-4.51); Lymphocyte % 17.4 % (19-41); Mean Corp Hgb Conc 33.4 g/dL (32-36); Mean Corpuscular Hgb 34.6 pg (27.0-32.0); Mean Corpuscular Volume 103.6 fL (81-99); Mean Platelet Vol. 9.8 fl (6.2-12.0); Monocyte# 0.51 X10^3/uL; Monocyte% 6.6 % (0-10); NRBC Flagged by Analyzer 0 % (0-5); Neutrophil # 5.72 X10^3/uL (2.7-7.7); Neutrophil % 74.1 % (47-70); Platelet Count 286 K/mm3 (150-450); RBC Distribution Width CV 14.1 % (11.6-14.6); RBC Distribution Width SD 54.1 fl (35.1-43.9); Red Blood Count 4.19 M/mm3 (4.2-5.4); White Blood Count 7.7 K/mm3 (4.4-11.0)
[2021-04-21 18:34] LABS: ALB/GLOB Ratio 0.9 RATIO (0.9-2.4); AST(SGOT) 53 U/L (15-37); Alanine Aminotransfer ALT/SGPT 88 U/L (13-56); Albumin, Serum 3.3 g/dL (3.2-5.0); Alkaline Phosphatase 99 U/L (45-117); Anion Gap 8 (5-15); BUN 26 mg/dL (7-18); BUN/Creat Ratio 20.8 RATIO (10-20); Calcium,Total 8.9 mg/dL (8.5-10.1); Chloride 108 mmol/L (98-107); Creatinine, Serum 1.25 mg/dL (0.55-1.02); EST Glomerular Filtration Rate 45 mL/min (>60); Est Glom Filt Rate - Afr Amer 54 mL/min (>60); Globulin 3.6 g/dL (2.2-4.2); Glucose 170 mg/dL (74-106); Potassium 3.9 mmol/L (3.5-5.1); Protein, Total 6.9 g/dL (6.4-8.2); Sodium Level 141 mmol/L (136-145)
[2021-04-21 18:58] LABS: Cholesterol 151 mg/dL (200); Hemoglobin A1c 5.6 % (3.8-5.6); High Density Lipoprotein 73 mg/dL; Magnesium 2.2 mg/dL (1.6-2.6); Thyroid Stim Hormone (TSH) 3.29 uIU/mL (0.358-3.74); Triglycerides 153 mg/dL; Very Low Density Lipoprotein 31 mg/dL (5-40)
== END ==
PROVIDERS: PCP Family Medicine; Referring Provider Family Medicine; Visit Provider Family Medicine
DX: L29.9 Pruritus, unspecified (principal); E11.51 Type 2 diabetes mellitus with diabetic peripheral angiopathy without gangrene; K52.832 Lymphocytic colitis
CPT/HCPCS: 36415; 80053; 80061; 82140; 83036; 83735; 84443; 85025

== ENCOUNTER 2021-05-20 08:00 | Outpatient (CLI) | payer MEDICARE, SELFPAY ==
[2021-05-20 10:31] LABS: AST(SGOT) 67 U/L (15-37); Alanine Aminotransfer ALT/SGPT 101 U/L (13-56); Albumin, Serum 3.5 g/dL (3.2-5.0); Alkaline Phosphatase 66 U/L (45-117); Anion Gap 7 (5-15); BUN 16 mg/dL (7-18); BUN/Creat Ratio 16.6 RATIO (10-20); Calcium,Total 9.4 mg/dL (8.5-10.1); Chloride 107 mmol/L (98-107); Creatinine, Serum 0.96 mg/dL (0.55-1.02); EST Glomerular Filtration Rate 60 mL/min (>60); Est Glom Filt Rate - Afr Amer 73 mL/min (>60); Globulin 3.5 g/dL (2.2-4.2); Glucose 107 mg/dL (74-106); Potassium 3.7 mmol/L (3.5-5.1); Sodium Level 141 mmol/L (136-145)
== END 2021-05-20 23:59 | disposition short-term general hospital (02) ==
LOC: MTLAB 08:03
PROVIDERS: PCP Family Medicine; Referring Provider Family Medicine; Visit Provider Family Medicine
DX: R74.8 Abnormal levels of other serum enzymes (principal)
CPT/HCPCS: 36415; 80053

== ENCOUNTER 2021-05-28 12:34 | Outpatient (CLI) | payer MEDICARE, SELFPAY ==
[2021-05-28 15:28] LABS: Erythrocyte Sedimentation Rate 4 mm/hr (0-30)
[2021-05-28 15:29] LABS: Absolute Lymphocyte Count 2.03 X10^3/uL (0.83-4.51); Absolute Neutrophil Count 4.6 X10^3/uL (2.0-7.7); Basophil# 0.08 X10^3/uL; Basophil% 1.1 % (0-1); Eosinophils% 1.3 % (0-5); Hematocrit 40.5 % (37-47); Hemoglobin 13.8 g/dL (12.0-15.0); Lymphocyte # 2.03 X10^3/ul (0.83-4.51); Lymphocyte % 27.1 % (19-41); Mean Corp Hgb Conc 34.1 g/dL (32-36); Mean Corpuscular Hgb 34.6 pg (27.0-32.0); Mean Corpuscular Volume 101.5 fL (81-99); Mean Platelet Vol. 10.4 fl (6.2-12.0); Monocyte# 0.67 X10^3/uL; Monocyte% 8.9 % (0-10); NRBC Flagged by Analyzer 0 % (0-5); Neutrophil # 4.59 X10^3/uL (2.7-7.7); Neutrophil % 61.3 % (47-70); Platelet Count 290 K/mm3 (150-450); RBC Distribution Width SD 45.2 fl (35.1-43.9); Red Blood Count 3.99 M/mm3 (4.2-5.4); White Blood Count 7.5 K/mm3 (4.4-11.0)
[2021-05-28 16:05] LABS: AST(SGOT) 38 U/L (15-37); Alanine Aminotransfer ALT/SGPT 73 U/L (13-56); Albumin, Serum 3.4 g/dL (3.2-5.0); Alkaline Phosphatase 83 U/L (45-117); Anion Gap 8 (5-15); BUN 19 mg/dL (7-18); BUN/Creat Ratio 19.6 RATIO (10-20); CRP < 2.90 mg/L (0.0-3.0); Calcium,Total 8.9 mg/dL (8.5-10.1); Chloride 106 mmol/L (98-107); Creatinine, Serum 0.97 mg/dL (0.55-1.02); EST Glomerular Filtration Rate 60 mL/min (>60); Est Glom Filt Rate - Afr Amer 72 mL/min (>60); Ferritin 179 ng/mL (8-252); Globulin 3.4 g/dL (2.2-4.2); Glucose 98 mg/dL (74-106); Iron 157 ug/dL (50-170); Iron Binding Capacity,Total 286 ug/dL (250-450); Lipase 136 U/L (73-393); PERCENT IRON SATURATION 54.9 % (15.0-55.0); Potassium 4.1 mmol/L (3.5-5.1); Protein, Total 6.8 g/dL (6.4-8.2); Sodium Level 139 mmol/L (136-145)
[2021-05-31 16:02] LABS: ANTINUCLEAR ANTIBODIES DIRECT Negative (Negative)
[2021-06-01 10:12] LABS: Rheumatoid Factor < 10.0 IU/mL (<15)
[2021-06-01 21:06] LABS: Endomysial Antibody IgA Negative (Negative)
[2021-06-02 17:06] LABS: Deamidated Gliadin IgA 4 units (0-19); Deamidated Gliadin IgG 1 units (0-19); Immunoglobulin A 265 mg/dL (64-422); t-Transglutaminase IgA <2 U/mL (0-3)
== END 2021-05-28 23:59 | disposition short-term general hospital (02) ==
LOC: MTLAB 12:35
PROVIDERS: PCP Family Medicine; Referring Provider Family Medicine; Visit Provider Family Medicine
DX: M25.549 Pain in joints of unspecified hand (principal); R74.8 Abnormal levels of other serum enzymes
CPT/HCPCS: 36415; 80053; 82728; 82784; 83516; 83540; 83550; 83690; 85025; 85652; 86038; 86140; 86255; 86431

== ENCOUNTER → 2022-01-19 | Outpatient (CLI) | payer MEDICARE, SELFPAY ==
--- NOTE | 2022-01-19 13:30 | BI_ITS ---
MAMMOGRAPHY - BILATERAL SCREENING REASON FOR EXAM: Female, 76 years old. Routine annual screening examination. PERTINENT HISTORY: Grandmother with breast cancer. TECHNIQUE: Digital bilateral breast lawanda (3D mammographic acquisition) in the CC and MLO projections. 2-D mediolateral oblique (MLO) and craniocaudad (CC) views of both breasts were obtained. CAD: Full Field Digital Mammography with Computer Added Detection was performed. COMPARISON: Comparison is made with prior study dated 12/04/2020 and 08/27/2019. FINDINGS: Breast Composition: The breasts are almost entirely fatty. There are no dominant masses or suspicious calcifications. Stable well-defined 7 mm nodule in the upper outer aspect of the left breast. A central fatty notch is seen suggestive of a small benign appearing lymph node.. No other significant abnormalities are identified. There has been no significant change since the prior study. BI/SCRN MAMM (CAD)W/LAWANDA BILAT IMPRESSION: Stable bilateral screening mammogram. Yearly follow-up mammogram recommended. (A) ASSESSMENT CATEGORY: BIRADS Category 2: Benign. A letter regarding these results will be sent to the patient by the facility within 30 days. Approximately 10% of breast cancers are not detected by mammography. A normal mammogram should not delay biopsy of a clinically suspicious abnormality. [id number] Electronically Signed: Felipe Novak MD at 9:25 EDT ,
== END | disposition home or self-care (01) ==
LOC: OPBI 13:23
PROVIDERS: PCP Family Medicine; Visit Provider Family Medicine
DX: Z12.31 Encounter for screening mammogram for malignant neoplasm of breast (principal)
CPT/HCPCS: 77063; 77067

== ENCOUNTER → 2022-02-03 | Outpatient (CLI) | payer MEDICARE, SELFPAY ==
[2022-02-03 10:35] LABS: Absolute Lymphocyte Count 1.79 X10^3/uL (0.83-4.51); Absolute Neutrophil Count 2.8 X10^3/uL (2.0-7.7); Basophil# 0.07 X10^3/uL; Basophil% 1.3 % (0-1); Eosinophil# 0.14 X10^3/uL; Eosinophils% 2.6 % (0-5); Hematocrit 41.3 % (37-47); Hemoglobin 13.8 g/dL (12.0-15.0); Lymphocyte # 1.79 X10^3/ul (0.83-4.51); Lymphocyte % 32.9 % (19-41); Mean Corp Hgb Conc 33.4 g/dL (32-36); Mean Corpuscular Hgb 33.9 pg (27.0-32.0); Mean Corpuscular Volume 101.5 fL (81-99); Mean Platelet Vol. 10.4 fl (6.2-12.0); Monocyte# 0.59 X10^3/uL; Monocyte% 10.8 % (0-10); NRBC Flagged by Analyzer 0 % (0-5); Neutrophil # 2.84 X10^3/uL (2.7-7.7); Neutrophil % 52.2 % (47-70); Platelet Count 190 K/mm3 (150-450); RBC Distribution Width CV 12.8 % (11.6-14.6); RBC Distribution Width SD 47.8 fl (35.1-43.9); Red Blood Count 4.07 M/mm3 (4.2-5.4); White Blood Count 5.4 K/mm3 (4.4-11.0)
[2022-02-03 10:49] LABS: AST(SGOT) 147 U/L (15-37); Alanine Aminotransfer ALT/SGPT 124 U/L (13-56); Albumin, Serum 3.4 g/dL (3.2-5.0); Alkaline Phosphatase 76 U/L (45-117); Anion Gap 8 (5-15); BUN 12 mg/dL (7-18); BUN/Creat Ratio 12.7 RATIO (10-20); Chloride 105 mmol/L (98-107); Creatinine, Serum 0.94 mg/dL (0.55-1.02); EST Glomerular Filtration Rate 62 mL/min (>60); Est Glom Filt Rate - Afr Amer 75 mL/min (>60); Globulin 3.5 g/dL (2.2-4.2); Glucose 99 mg/dL (74-106); Potassium 3.6 mmol/L (3.5-5.1); Protein, Total 6.9 g/dL (6.4-8.2); Sodium Level 139 mmol/L (136-145)
[2022-02-03 10:57] LABS: Erythrocyte Sedimentation Rate 6 mm/hr (0-30)
== END | disposition home or self-care (01) ==
PROVIDERS: PCP Family Medicine; Referring Provider Family Medicine; Visit Provider Family Medicine
DX: K58.2 Mixed irritable bowel syndrome (principal); I10 Essential (primary) hypertension
CPT/HCPCS: 36415; 80053; 85025; 85652

== ENCOUNTER → 2022-02-23 | Outpatient (CLI) | payer MEDICARE, SELFPAY ==
--- NOTE | 2022-02-23 08:08 | US_ITS ---
STUDY: ABDOMINAL ULTRASOUND - RIGHT UPPER QUADRANT REASON FOR VISIT: Female, 76 years old abnl liver enzymes TECHNIQUE: Ultrasound evaluation of the right upper quadrant was performed with real-time and static edge-scale imaging. TECHNICAL QUALITY: Adequate. COMPARISON: None. FINDINGS: Liver: The liver measures 11.2 cm. There is normal echogenicity of the liver. The bile ducts are within normal limits. There is hepatic color flow. The direction of portal flow is hepatopetal. There is no demonstrated mass lesion. Gallbladder: Status post cholecystectomy. Common Bile Duct (C.B.D.): The common bile duct measures 5.1 mm Pancreas: Normal size of the head, body and tail of the pancreas. There is normal echogenicity of the pancreas. There is no demonstrated pancreatic mass or cyst. Right Kidney: Normal size of the right kidney. The right kidney measures 8.3 x 3.3 x 3.4 cm. Normal renal cortex. The right cortex measures 1.1 cm. There is no demonstrated renal mass or cyst. There is no right hydronephrosis. US/Abdomen Limited IMPRESSION: Status post cholecystectomy. Common duct 5.1 mm consistent with prior cholecystectomy. Mild atrophy of the right kidney but no evidence of cortical thinning. This atrophy could be due to scarring and/or renovascular disease. Electronically Signed: Ted Delgado MD, EVER at 17:12 EDT ,
--- NOTE | 2022-02-23 16:25 | RAD_ITS ---
STUDY: X-RAY - LEFT HAND REASON FOR EXAM: Female, 76 years old. HAND INJURY TECHNIQUE: 3 view(s) of the hand. COMPARISON: None. 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 Mild osteoarthritis remainder carpus, carpometacarpal, metacarpophalangeal and phalangeal joints. Soft tissues normal. No evidence of fracture. RAD/Hand Min 3 Views IMPRESSION: Osteoarthritis as above. Electronically Signed: Ted Delgado MD, EVER at 17:53 EDT ,
== END | disposition home or self-care (01) ==
PROVIDERS: PCP Family Medicine; Referring Provider Family Medicine; Visit Provider Family Medicine
DX: R74.01 Elevation of levels of liver transaminase levels (principal); S69.92XA Unspecified injury of left wrist, hand and finger(s), initial encounter
CPT/HCPCS: 73130; 76705

== ENCOUNTER 2022-04-22 07:41 | Outpatient (CLI) | payer MEDICARE, SELFPAY ==
--- NOTE | 2022-04-22 07:44 | CDU_ITS ---
Reason For Study: carotid stenosis Rt. Velocities/BP Lt. Velocities/BP Prox CCA 105.8 cm/sec. Prox CCA 121.1/6.0 cm/sec. Mid CCA 99.2 cm/sec. Mid CCA 123.2 cm/sec. Dist CCA 96.0 cm/sec. Dist CCA 106.0 cm/sec. Prox ICA 77.7/6.5 cm/sec. Prox ICA 154.0 cm/sec. Mid ICA 128.1/6.5 cm/sec. Mid ICA 113.3/7.7 cm/sec. Dist ICA 104.7/7.7 cm/sec. Dist ICA 126.8/6.5 cm/sec. Rt. ICA/CCA = 1.2. Lt. ICA/CCA = 1.3. Prox ECA 182.2 cm/sec. Prox ECA 230.5 cm/sec. Rt. Vert. 42.1 cm/sec. Lt. Vert. 92.5/9.0 cm/sec. Right Extracranial There is homogeneous, smooth atherosclerotic plaque noted in the right common carotid artery. There is intimal thickening but no significant atherosclerotic plaque noted in the right internal carotid artery. There is intimal thickening but no significant atherosclerotic plaque noted in the right external carotid artery. Antegrade flow is noted in the right vertebral artery. Left Extracranial There is homogeneous, smooth atherosclerotic plaque noted in the left common carotid artery. There is homogeneous, smooth atherosclerotic plaque noted in the left internal carotid artery. There is intimal thickening but no significant atherosclerotic plaque noted in the left external carotid artery. Antegrade flow is noted in the left vertebral artery. Procedure Carotid Duplex [id number]. This is a Carotid Duplex examination using B-mode, color flow and specral Doppler. The exam was diagnostic. Exam performed in department. VL/Carotid Duplex Ultrasound Interpretation Summary Moderate (50-69%) stenosis right extracranial internal carotid. Moderate (50-69 %) stenosis left extracranial internal carotid. Flow within the vertebral arteries is antegrade bilaterally. Ordering Physician: Deni Gruber Performed By: Gerber Menon RVT
--- NOTE | 2022-04-22 07:45 | ADUUE_ITS ---
Reason For Study: subclavian steal syndrome RIGHT Subclavian Prox 71.8 cm/s. Subclavian Mid 344.8 cm/s. Subclavian Dist is occluded. Right Axillary velocity = 50.4 cm/sec. Right Brachial velocity = 51.1 cm/sec. Right Radial velocity = 31.7 cm/sec. Right Ulnar velocity = 27.8 cm/sec. /US Art Duplex Unilat UP Extrem Interpretation Summary Right mid subclavian severe stenosis and then occluded distally. Ordering Physician: Deni Gruber Performed By: Gerber Menon RVT
--- NOTE | 2022-04-22 07:45 | ART_ITS ---
Reason For Study: subclavian steal syndrome Procedure A bilateral upper extremity continuous wave Doppler with analog waveform analysis and segmental pressures. Left Segmental Pressures Left brachial= 126mmHg. Left forearm by way of the radial artery = 123mmHg. Left radial= 133mmHg. Left ulnar= 137mmHg. Left digit = 116 mmHg. The left radial waveforms are triphasic. The left ulnar waveforms are triphasic. Right Segmental Pressures Right brachial= 53mmHg. Right forearm pressure by way of the radial artery = 53mmHg. Right radial= 64mmHg. Right ulnar= 51mmHg. Right digit = 60 mmHg. The right radial waveforms are monophasic. The right ulnar waveforms are monophasic. Indices The right wrist-brachial index is .51. The right digital-brachial index is .48. The left wrist- brachial index is 1.09. The left digital-brachial index is .92. VL/Ankle Brachial Index Interpretation Summary Right moderate occlussive disease and WBI 0.51 and left normal with WBI1.09. Ordering Physician: Deni Gruber Performed By: Gerber Menon RVT
== END 2022-04-22 23:59 | disposition home or self-care (01) ==
LOC: CVS 07:42
PROVIDERS: PCP Family Medicine; Referring Provider Surgery Vascular Surgery; Visit Provider Surgery Vascular Surgery
DX: G45.8 Other transient cerebral ischemic attacks and related syndromes (principal); I65.23 Occlusion and stenosis of bilateral carotid arteries
CPT/HCPCS: 93880; 93922; 93931

== ENCOUNTER → 2022-05-03 | Outpatient (CLI) | payer MEDICARE, SELFPAY ==
[2022-05-03 17:42] LABS: Absolute Lymphocyte Count 1.16 X10^3/uL (0.83-4.51); Absolute Neutrophil Count 3.1 X10^3/uL (2.0-7.7); Basophil# 0.04 X10^3/uL; Basophil% 0.8 % (0-1); Eosinophil# 0.08 X10^3/uL; Eosinophils% 1.6 % (0-5); Hematocrit 42.1 % (37-47); Hemoglobin 13.9 g/dL (12.0-15.0); Lymphocyte # 1.16 X10^3/ul (0.83-4.51); Lymphocyte % 23.4 % (19-41); Mean Corpuscular Hgb 34.6 pg (27.0-32.0); Mean Corpuscular Volume 104.7 fL (81-99); Mean Platelet Vol. 10.5 fl (6.2-12.0); Monocyte# 0.57 X10^3/uL; Monocyte% 11.5 % (0-10); NRBC Flagged by Analyzer 0 % (0-5); Neutrophil % 62.7 % (47-70); Platelet Count 138 K/mm3 (150-450); RBC Distribution Width CV 13.4 % (11.6-14.6); RBC Distribution Width SD 51.9 fl (35.1-43.9); Red Blood Count 4.02 M/mm3 (4.2-5.4)
[2022-05-03 18:12] LABS: Erythrocyte Sedimentation Rate 6 mm/hr (0-30)
[2022-05-03 18:16] LABS: ALB/GLOB Ratio 0.9 RATIO (0.9-2.4); AST(SGOT) 387 U/L (15-37); Alanine Aminotransfer ALT/SGPT 255 U/L (13-56); Albumin, Serum 3.1 g/dL (3.2-5.0); Alkaline Phosphatase 202 U/L (45-117); Anion Gap 7 (5-15); BUN 13 mg/dL (7-18); BUN/Creat Ratio 13.3 RATIO (10-20); Calcium,Total 9.1 mg/dL (8.5-10.1); Chloride 109 mmol/L (98-107); Creatinine, Serum 0.98 mg/dL (0.55-1.02); EST Glomerular Filtration Rate 59 mL/min (>60); Est Glom Filt Rate - Afr Amer 71 mL/min (>60); Globulin 3.5 g/dL (2.2-4.2); Glucose 130 mg/dL (74-106); Potassium 3.9 mmol/L (3.5-5.1); Protein, Total 6.6 g/dL (6.4-8.2); Sodium Level 142 mmol/L (136-145)
[2022-05-05 14:16] LABS: GGTP 314 U/L (5-55); Lipase 219 U/L (73-393)
[2022-05-05 15:08] LABS: PROEL- A/G Ratio 1.2 (0.7-1.7); PROEL- Albumin 3.5 g/dL (2.9-4.4); PROEL- Alpha-1 Globulin 0.3 g/dL (0.0-0.4); PROEL- Alpha-2 Globulin 0.4 g/dL (0.4-1.0); PROEL- Beta Globulin 0.9 g/dL (0.7-1.3); PROEL- Gamma Globulin 1.4 g/dL (0.4-1.8); PROEL- TOTAL PROTEIN 6.5 g/dL (6.0-8.5)
== END | disposition home or self-care (01) ==
LOC: MFPLAB 15:18
PROVIDERS: PCP Family Medicine; Visit Provider Family Medicine
DX: M54.50 Low back pain, unspecified (principal); R74.01 Elevation of levels of liver transaminase levels
CPT/HCPCS: 36415; 80053; 82977; 83690; 84165; 85025; 85652; 86140

== ENCOUNTER → 2022-05-21 | Outpatient (CLI) | payer MEDICARE, SELFPAY ==
[2022-05-21 12:53] LABS: AST(SGOT) 244 U/L (15-37); Alanine Aminotransfer ALT/SGPT 182 U/L (13-56); Albumin, Serum 3.1 g/dL (3.2-5.0); Alkaline Phosphatase 140 U/L (45-117); Anion Gap 6 (5-15); BUN 11 mg/dL (7-18); BUN/Creat Ratio 12.9 RATIO (10-20); Calcium,Total 9.6 mg/dL (8.5-10.1); Chloride 109 mmol/L (98-107); Creatinine, Serum 0.85 mg/dL (0.55-1.02); EST Glomerular Filtration Rate 69 mL/min (>60); Est Glom Filt Rate - Afr Amer 84 mL/min (>60); GGTP 374 U/L (5-55); Globulin 3.2 g/dL (2.2-4.2); Glucose 100 mg/dL (74-106); Lipase 166 U/L (73-393); Potassium 3.8 mmol/L (3.5-5.1); Protein, Total 6.3 g/dL (6.4-8.2); Sodium Level 142 mmol/L (136-145)
== END | disposition home or self-care (01) ==
LOC: MFPLAB 08:27
PROVIDERS: PCP Family Medicine; Visit Provider Family Medicine
DX: R79.82 Elevated C-reactive protein (CRP) (principal); R74.01 Elevation of levels of liver transaminase levels
CPT/HCPCS: 36415; 80053; 82977; 83690; 86140

== ENCOUNTER → 2022-06-04 | Outpatient (CLI) | payer MEDICARE, SELFPAY ==
--- NOTE | 2022-06-04 10:43 | US_ITS ---
STUDY: ABDOMINAL ULTRASOUND REASON FOR EXAM: Female, 77 years old. Elevated serum ggt level and persistent elevated liver enzymes TECHNIQUE: Transabdominal ultrasound was performed with real-time and static edge scale imaging. TECHNICAL QUALITY: Adequate. COMPARISON: Comparison is made with prior study dated 02/23/2022. FINDINGS: Liver: The liver measures 12.1 cm. There is normal echogenicity of the liver. The bile ducts are within normal limits. There is hepatic color flow. The direction of portal flow is hepatopetal. There is no demonstrated mass lesion. Gallbladder: The patient is status post cholecystectomy. Common Bile Duct (C.B.D.): The common bile duct measures 4.9 mm. Pancreas: Normal size of the head, body and tail of the pancreas. There is normal echogenicity of the pancreas. There is no demonstrated pancreatic mass or cyst. Spleen: Normal size of the spleen. The spleen measures 9.1 cm x 3.9 cm x 3.4 cm. Right Kidney: There is mild degree of atrophy of the right kidney. The right kidney measures 9.2 cm x 4.1 cm x 3.6 cm. Normal renal cortex. The right cortex measures 1.0 cm. There is no demonstrated renal mass or cyst. There is no right hydronephrosis. Left Kidney: Normal size of the left kidney. The left kidney measures 11.8 cm x 5.4 cm x 4.4 cm. Normal renal cortex. The left cortex measures 1.3 cm. There is a 4.2 cm x 4.4 cm x 4.6 cm cyst in the upper pole. There is also evidence of a 2.4 cm x 2.47 x 2.2 cm parapelvic cyst. There is no left hydronephrosis. Aorta: Unremarkable. I.V.C.: The IVC is patent. There is no ascites. US/Abdomen Complete IMPRESSION: Status post cholecystectomy. Left renal cysts. Electronically Signed: Felipe Novak MD at 14:15 EST ,
== END | disposition home or self-care (01) ==
LOC: US 10:41
PROVIDERS: PCP Family Medicine; Visit Provider Family Medicine
DX: R74.8 Abnormal levels of other serum enzymes (principal)
CPT/HCPCS: 76700

== ENCOUNTER 2022-07-06 13:00 | Outpatient (RCR) | payer MEDICARE, SELFPAY ==
--- NOTE | 2022-05-12 15:57 | HP.PTEVAL_ITS ---
Patient's Visit Information CRISTINO NOLAN is a 76 year old F referred to Physical Therapy by Dr. Florin Aragon MD with a diagnosis of Bilateral Sacral and Glut Pain. Date of Evaluation: 05/12/22 Physical Therapist: Marta Enamorado DPT - Visit Plan Frequency: 2x /Week Duration: 4 Weeks Plan: Focus on LE and core strength/stabilization. HEP Given IE: Posture, TA contraction, bridge, hip add, hip abduction - Subjective Patient reports that she has had a back ache for quite awhile and tried a chiropractor that did help. She has had back pain for about 2 year. Feels its not worse or better just the same. Insidious onset- but has had some falls. Last fall was about a month ago. A long time ago she fell backwards into the bathtub without water. She saw a chiro about a year ago for about a year- adjustments and some exercises for home but she did not do that. The pain is worse in the am- feels like she is better in the afternoon. She feels that she sleeps in one position too long- side sleeper and a CPAP machine- does not sleep with a pillow between her knees. Pain is located along the sacrum and along the belt line. Describes the pain as sharp and shooting but its hard to described. Worst: 5/10 Agg: vacuuming. Ease: sitting down for awhile. Best: 0/10. If she sits down the pain goes away quickly. No radiating pain down the leg. No N/T in the toes. She has not had any x-rays of her back but is waiting approval for a CT. No medication but did recommend OTC meds: Tylenol/Advil. 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 She is fully I with all ADL's. She has IBS but thats not new- no new bowel/bladder issues. PMHX/Meds: will bring next visit to scan in. - Objective Posture: FH, RS- can correct with verbal and tacile cues but does not maintain. Gait: no deviation noted- good arm swing and trunk rotation HR/TR: able with UE A SLS: weight shift Palpation: tender along gluts bilateral, lumbar parasp inals bilateral, ITBand . ROM: Lumbar: WFL no pain Hip: WFL no pain Knee/Ankle: WFL Sensation: normal to gross touch bilateral LE, Reflex: patellar 2+ . Strength: Core: poor Hip: 4/5 throughout but feels her right LE is weaker than left, Knee: 4+/5 Ankle: 5/5 Flex: HS: mod, Gastroc: mod. - Special Tests L/S Slump test left side: Negative L/S Slump test right side: Negative L/S Left Straight Leg Raise: Negative L/S Right Straight Leg Raise: Negative R Hip Scour: Negative R Hip ANTIONE - Intraarticular Pathology: Negative R Hip FADDIR - Labrum: Negative R Hip Trendelenberg - Glut Medius: Negative L Hip Scour: Negative L Hip ANTIONE - Intraarticular Pathology: Negative L Hip FADDIR - Labrum: Negative L Hip Trendelenberg - Glut Medius: Negative - Balance/Special Test Scores Lower Extremity Functional Score: 48 - Goals Goal 1:: Patient will be I with HEP and progression Goal Time Frame: 4-6 Weeks Goal 2:: Patient will maintain proper posture t/o tx session to demo increase core s/s Goal Time Frame: 4-6 Weeks Goal 3:: Patient will report 80% improvement Goal Time Frame: 4-6 Weeks - Rehabilitation Potential Physical Therapy Diagnosis: Patient presents with hypomobility- she has decreased LE and core strength/stabilization, flex and muscular endurance leading to poor posture and increased pain with ADL's Rehabilitation Potential: Fair - Anticipated Interventions Patient/Client Instruction: Educate patient on: Benefits of Fitness Program Therapeutic Exercise to Include: Strength training, Endurance training, Balance training, Coordination, Agility training, Body mechanics, Postural training, Flexibilty training, Neuromotor development, Dynamic Lumbar Stabilization, Scapular Strength/Stabilization For the Purpose of:: To improve muscle performance and motor function Cryotherapy (ice pack, ice massage): Yes Thermo therapy (hot pack): Yes Thank you for the opportunity to evaluate your patient. For Medicare and Medicare HMO plans, please review the plan of care and approve it. It will need to be FAXED BACK to us at [phone] for Medicare purposes. For Medicare only, by signing this I certify the plan of care. Please let me know if there are questions or concerns regarding this plan of care. Physician Signature: Date:
--- NOTE | 2022-06-16 11:28 | HP.PTREVAL ---
Dr. Florin Aragon MD, It has been my pleasure to treat CRISTINO NOLAN over the last 10 visits for Bilateral Sacral and Glut Pain. Please see the progress note below for an update on the physical therapy plan of care! Subjective: Patient reports that she is waking up stiff from her spine to her knees- two days a week- sometimes it gets better but other times she makes arrangements to go back to bed. When she is stiff she is a 5-6/10- she feels better if she takes Ibuprofen and takes a nap and she feels better. She is not as active as she use to be but does go up/down the stairs carrying laundry baskets. She use to go to the [employer] and walk 2-3x a week- she was getting to the point she could not get around the track more than 1-2x due to fatigue. She feels like her stiffness contributes to her fatigue but wonders if something else is going on. MD is trying to figure out what is going on. She is using a CPAP and taking a thyroid medication. She is willing to continue therapy. Objective/Function: Posture: FH, RS- can correct with verbal and tacile cues but does not maintain. Gait: no deviation noted- good arm swing and trunk rotation HR/TR: able with UE A SLS: weight shift Palpation: tender along gluts bilateral, lumbar paraspinals bilateral, ITBand . ROM: Lumbar: WFL no pain Hip: WFL no pain Knee/Ankle: WFL Sensation: normal to gross touch bilateral LE, Reflex: patellar 2+ . Strength: Core: poor Hip: 4/5 throughout but feels her right LE is weaker than left, Knee: 4+/5 Ankle: 5/5 Flex: HS: mod, Gastroc: mod. - Special Tests. L/S Slump test left side: Negative. L/S Slump test right side: Negative. L/S Left Straight Leg Raise: Negative. L/S Right Straight Leg Raise: Negative. R Hip Scour: Negative. R Hip ANTIONE - Intraarticular Pathology: Negative. R Hip FADDIR - Labrum: Negative. R Hip Trendelenberg - Glut Medius: Negative. L Hip Scour: Negative. L Hip ANTIONE - Intraarticular Pathology: Negative. L Hip FADDIR - Labrum: Negative. L Hip Trendelenberg - Glut Medius: Negative Plan Plan: 06/16/22: Continue 2x a week for 2 weeks to progress to gym program- machines for H&W. 05/31/22: Continue with current POC 2x a week for 3 additional weeks. Focus on LE and core strength/stabilization. HEP Given IE: Posture, TA contraction, bridge, hip add, hip abduction Balance/Gait/Functional tests - Balance/Special Test Scores Oswestry Low Back Score: 6 Lower Extremity Functional Score: 48 Goals Goal 1:: Patient will be I with HEP and progression Goal Time Frame: 4-6 Weeks Goal Progress: Progressing Goal 2:: Patient will maintain proper posture t/o tx session to demo increase core s/s Goal Time Frame: 4-6 Weeks Goal Progress: Progressing Goal 3:: Patient will report 80% improvement Goal Time Frame: 4-6 Weeks Goal Progress: Progressing Anticipated Interventions Patient/Client Instruction: Educate patient on: Benefits of Fitness Program Therapeutic Exercise to Include: Strength training, Endurance training, Balance training, Coordination, Agility training, Body mechanics, Postural training, Flexibilty training, Neuromotor development, Dynamic Lumbar Stabilization, Scapular Strength/Stabilization For the Purpose of:: To improve muscle performance and motor function Cryotherapy (ice pack, ice massage): Yes Thermo therapy (hot pack): Yes Please do not hesitate to contact me at [phone] by phone or if you have questions or concerns regarding this new plan of care! Sincerely, Marta Enamorado DPT
--- NOTE | 2022-06-18 11:35 | HP.OTEVAL_ITS ---
Patient's Visit Information CRISTINO NOLAN is a 77 year old F, referred to Occupational Therapy by Dr. Florin Aragon MD, with a diagnosis of bilateral hand cramping/finger locking.. Date of Evaluation: 06/17/22 Occupational Therapist: Cielo Connor, OTR/Bennett, CHT - Subjective This 77 year old female was seen for OT eval with dx of bilateral hand cramping and fingers locking. pt states this is painful when it happens. pt states she feels pain at night and will put arthritis cream on her hands and she can go back to sleep. pt states she is right handed. cramping and locking varies and pt can not find what causes it. pt would like to decrease muscle cramping. - Pain bilateral hands 2 Pain Intensity Range: 6 - ROM ROM Comments: pt demo all ROM WNL. 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 eq. Other Goal: Pt will demo understanding of joint protection and ergonomics when performing BADLs and IADLs by d/c. Pt will demo understanding of adaptive Equipment use to decrease stress on joints to allow pt to perform BADSL and IADLS at FELICITAS level. - Rehabilitation General Assessment: pt would benefit from skilled OT services 1-2x week for 3-4 weeks to ed. pt on joint protection danyell, ad. eq. and bracing as needed to decrea se muscle cramping. pt demo understanding and agree to POC. Rehabilitation Potential: Good - Anticipated Interventions A/AAROM/PROM, Triggerpoint Release, Modalities, Orthoses, Joint Protection/Energy Conservation, Ergonomic Education, Education re assistive Equipment, Education re Diagnosis, Home Program - Visit Plan Frequency: 1-2x /Week Duration: 4 Months General Plan: light ROM of digits. trigger point release of hands. ad. eq. possible bracing TEXT: Thank you for the opportunity to evaluate your patient. For Medicare and Medicare HMO plans, please review the plan of care and approve it. It will need to be FAXED BACK to us at [phone] for Medicare purposes. Please let me know if there are questions or concerns regarding this plan of care. Physician Signature: Date:
--- NOTE | 2022-07-06 12:57 | HP.PTDCSUM_ITS ---
It has been my pleasure to treat CRISTINO NOLAN referred by Dr. Florin Aragon MD, with the diagnosis of Bilateral Sacral and Glut Pain for a total of 15 visit(s). Discharge Date: Please see the following information for a summary of their discharge status. Subjective: Patient reports that she feels that the back is a lot better but the knee is now starting to bother her. Vacuuming is still not her favorite chore. LB Pain Intensity (Out of 10): 2 % Improvement: 50 Objective/Function: Posture: fair throughout Gait: no deviation noted- good arm swing and trunk rotation HR/TR: able with UE A SLS: weight shift Palpation: not tender ROM: Lumbar: WFL no pain Hip: WFL no pain Knee/Ankle: WFL Sensation: normal to gross touch bilateral LE, Reflex: patellar 2+ . Strength: Core: fair Hip: 4+/5 throughout but feels her right LE is weaker than left, Knee: 5/5 Ank le: 5/5 Flex: HS: mod, Gastroc: mod. - Special Tests. L/S Slump test left side: Negative. L/S Slump test right side: Negative. L/S Left Straight Leg Raise: Negative. L/S Right Straight Leg Raise: Negative. R Hip Scour: Negative. R Hip ANTIONE - Intraarticular Pathology: Negative. R Hip FADDIR - Labrum: Negative. R Hip Trendelenberg - Glut Medius: Negative. L Hip Scour: Negative. L Hip ANTIONE - Intraarticular Pathology: Negative. L Hip FADDIR - Labrum: Negative. L Hip Trendelenberg - Glut Medius: Negative Goal 1:: Patient will be I with HEP and progression Goal Progress: Progressing Goal 2:: Patient will maintain proper posture t/o tx session to demo increase core s/s Goal Progress: Progressing Goal 3:: Patient will report 80% improvement Goal Progress: Progressing Plan: 07/06/22: Gave written HEP for machines- d/c. 06/16/22: Continue 2x a week for 2 weeks to progress to gym program- machines for H&W. 05/31/22: Continue with current POC 2x a week for 3 additional weeks. Focus on LE and core strength/stabilization. HEP Given IE: Posture, TA contraction, bridge, hip add, hip abduction If there are questions or concerns regarding this patient's physical therapy, please feel free to call me at [phone]. Thank you for the referral of this patient. Sincerely, Marta Enamorado, CORRIET Balance/Gait/Functional tests - Balance/Special Test Scores Oswestry Low Back Score: 6 Lower Extremity Functional Score: 60
--- NOTE | 2022-07-06 14:06 | HP.OTDCSUM ---
It has been my pleasure to treat CRISTINO NOLAN under orders from Dr. Florin Aragon MD, for the diagnosis of bilateral hand cramping/finger locking. for a total of 6 visit(s). Please see the following information for a summary of their discharge status. % Improvement: 75 Patient Goals: Decrease Pain, Use Hand/Wrist/Arm Normally Again Goal:No pain with affected hand use: Yes Goal:Full use of affected hand in daily activities including: Yes Other Goal: Pt will demo understanding of joint protection and ergonomics when performing BADLs and IADLs by d/c. Pt will demo understanding of adaptive Equipment use to decrease stress on joints to allow pt to perform BADSL and IADLS at FELICITAS level. Plan: D/C Discharge Comments: pt was seen for 6 OT sessions for hand cramping and trigger finger- therapy ed. pt on ad. eq., energy conservation and joint protection danyell. pt demo understanding and agrees with HEP. pt is joining [facility] and will contact therapist if she has questions. If there are questions or concerns regarding this patient's occupational therapy, please fell free to call me at [phone]. Thank you for the referral of this patient. Sincerely, Cielo Connor, OTR/L, CHT
== END 2022-07-06 14:23 | disposition home or self-care (01) ==
LOC: OT 13:00
PROVIDERS: PCP Family Medicine; Referring Provider Family Medicine; Visit Provider Family Medicine
DX: M53.3 Sacrococcygeal disorders, not elsewhere classified (principal); R25.2 Cramp and spasm
CPT/HCPCS: 97110; 97140; 97162; 97164; 97166; 97530

== ENCOUNTER 2022-07-11 10:24 | Inpatient (IN) | payer MEDICARE, SELFPAY ==
[2022-07-11] VITALS (8 sets, daily range): BP systolic 117–175; BP diastolic 48–107; PULSE 66–178; RESP 14–24; TEMP 36.6–37.3; O2SAT 95–99; BMI 27.0; BMI 27.3
--- NOTE | 2022-07-11 10:26 | NURSING ---
NO OLD EKGS
--- NOTE | 2022-07-11 10:40 | EKG12_ITS ---
Test Reason : PALP Blood Pressure : / mmHG Vent. Rate : 134 BPM Atrial Rate : 134 BPM P-R Int : 124 ms QRS Dur : 066 ms QT Int : 292 ms P-R-T Axes : 000 026 -68 degrees QTc Int : 436 ms Atrial flutter Septal infarct , age undetermined Marked ST abnormality, possible inferior subendocardial injury Abnormal ECG Confirmed by WILMA CROWDER, BERNIE ([id number]), acquisition editor PIEDAD SLAUGHTER ([id number]) on 07/13/2022 9:35:36 AM Referred By: Confirmed By:BERNIE DILLON MD
--- NOTE | 2022-07-11 10:45 | RAD_ITS ---
INDICATION: palpitations EXAMINATION/TECHNIQUE: X-RAY - XR Chest 1 View COMPARISON: September 16, 2014 FINDINGS: LINES/DEVICES: None. LUNGS: There is an indeterminate artifact obscuring anatomic detail. There is no new focal consolidation. MEDIASTINUM AND CARDIOVASCULAR STRUCTURES: Cardiac silhouette not enlarged. Central airways and mediastinal contour are unremarkable. BONES AND SOFT TISSUES: Unremarkable. RAD/Chest 1 View (Portable) IMPRESSION: No radiographic evidence of acute cardiopulmonary disease. Electronically Signed: Cailin Moralez MD at 11:12 EST ,
--- NOTE | 2022-07-11 10:46 | EKG12_ITS ---
Test Reason : PALP Blood Pressure : / mmHG Vent. Rate : 107 BPM Atrial Rate : 107 BPM P-R Int : 166 ms QRS Dur : 072 ms QT Int : 332 ms P-R-T Axes : 061 029 059 degrees QTc Int : 443 ms Sinus tachycardia Nonspecific ST and T wave abnormality Abnormal ECG Confirmed by WILMA CROWDER, BERNIE ([id number]), primer expeditor and drier PIEDAD SLAUGHTER ([id number]) on 07/13/2022 9:35:48 AM Referred By: ANAIS Confirmed By:BERNIE DILLON MD
[2022-07-11 10:55] LABS: Absolute Lymphocyte Count 1.16 X10^3/uL (0.83-4.51); Absolute Neutrophil Count 6.4 X10^3/uL (2.0-7.7); Basophil# 0.01 X10^3/uL; Basophil% 0.1 % (0-1); Hematocrit 38.7 % (37-47); Lymphocyte # 1.16 X10^3/ul (0.83-4.51); Lymphocyte % 13.5 % (19-41); Mean Corp Hgb Conc 33.6 g/dL (32-36); Mean Corpuscular Hgb 35.1 pg (27.0-32.0); Mean Corpuscular Volume 104.6 fL (81-99); Mean Platelet Vol. 11.1 fl (6.2-12.0); Monocyte# 0.95 X10^3/uL; NRBC Flagged by Analyzer 0 % (0-5); Neutrophil # 6.41 X10^3/uL (2.7-7.7); Neutrophil % 74.6 % (47-70); Platelet Count 154 K/mm3 (150-450); RBC Distribution Width CV 14.8 % (11.6-14.6); RBC Distribution Width SD 57.6 fl (35.1-43.9); White Blood Count 8.6 K/mm3 (4.4-11.0)
--- NOTE | 2022-07-11 10:56 | EDS_ITS ---
HPI History of Present Illness Chief Complaint: Palpitations Informant: patient Narrative Narrative: Sudden palpitations while watching TV couple hours prior to arrival. Denies lightheaded symptoms denies dyspnea. Denies chest pains. States had left elbow pain. Denies trauma. Triage pulse was 178, she states she had some similar couple months ago self-limiting did not get evaluated. No cardiac dysrhythmia history. Patient on Plavix for history of CVA in the past. She states her doctor had her stop the baby aspirin. She denies recent cough. Denies recent travel surgeries or immobilizations. No history of PE or DVT. Since coming to the ED symptoms have been subsiding. During my evaluation heart rate on the monitor EKG is 130s however after evaluation heart rate down to the low 100s sinus rhythm on the monitor. Patient denies any recent vomiting or diarrhea. Prior similar symptoms: Yes PFSH PFSH Home Medications estradiol 0.01% (0.1 mg/gram) vaginal cream (Estrace) 1 dose vaginal UD HORMONES 02/11/14 [History Last Taken Unknown] budesonide 3 mg capsule,delayed,extended release 9 mg PO DAILY COLITIS 07/11/22 [History Last Taken 07/11/22] calcium carbonate 600 mg-vitamin D3 5 mcg (200 unit) tablet 1 tab PO DAILY SUPPLEMENT 07/11/22 [History Last Taken 07/11/22] clopidogrel 75 mg tablet 75 mg PO LUNCH BLOOD THINNER 07/11/22 [History Last Taken 07/10/22] coenzyme Q10 50 mg tablet 50 mg PO DAILY SUPPLEMENT 07/11/22 [History Last Taken 07/10/22] cyanocobalamin (vitamin B-12) 1,000 mcg tablet (Vitamin B-12) 1,000 mcg PO DAILY PRN Nausea 07/11/22 [History Last Taken Unknown] diclofenac sodium 1 % topical gel 1 ea topical 4X/DAY PAIN 07/11/22 [History Last Taken 07/10/22] dicyclomine 20 mg tablet 20 mg PO TID IRRITABLE BOWELS 07/11/22 [History Last Taken 07/10/22] escitalopram oxalate 5 mg tablet 5 mg PO DAILY SUPPER 07/11/22 [History Last Taken 07/10/22] ipratropium bromide 21 mcg (0.03 %) nasal spray 2 spray intranasal Q6H PRN CONGESTION/COUGH 07/11/22 [History Last Taken Unknown] irbesartan 75 mg tablet 37.5 mg PO DAILY PRN Blood Pressure 07/11/22 [History Last Taken 1 Week Ago ~07/04/22] levothyroxine 50 mcg tablet 50 mcg PO DAILY THYROID 07/11/22 [History Last Taken 07/11/22] loperamide 2 mg capsule 2 mg PO UD PRN Diarrhea 07/11/22 [History Last Taken Unknown] melatonin 10 mg tablet 10 mg PO QHS PRN Sleep 07/11/22 [History Last Taken Unknown] mirtazapine 7.5 mg tablet 7.5 mg PO QHS PRN DEPRESSION/ANXIETY 07/11/22 [History Last Taken Unknown] multivitamin 1 tab PO DAILY HEALTH MAINTENANCE 07/11/22 [History Last Taken 07/10/22] rosuvastatin 10 mg tablet 10 mg PO QHS CHOLESTEROL 07/11/22 [History Last Taken 07/09/22] thiamine HCl (vitamin B1) 100 mg tablet 100 mg PO BIDCM SUPPLEMENT 07/11/22 [History Last Taken 07/10/22] triamcinolone acetonide 0.1 % topical cream 1 applic topical BID PRN Skin Irritation 07/11/22 [History Last Taken Unknown] vitamin B complex 1 tab PO DAILY SUPPLEMENT 07/11/22 [History Last Taken 07/10/22] Allergy/AdvReac Type Severity Reaction Status Date / Time Penicillins Allergy Unknown Verified 07/11/22 10:28 sulfamethoxazole Allergy Hives Verified 07/11/22 10:28 [From Bactrim] trimethoprim [From Bactrim] Allergy Hives Verified 07/11/22 10:28 Social History Smoking Status: Former smoker ROS ROS ED Constitutional Constitutional ED: Denies chills, fever(s) or sweats Eyes Eyes: Denies change in vision ENT ENT ED: Denies dysphagia or sore throat Cardiovascular Cardiovascular: Reports palpitations; Denies chest pain, leg edema or racing heartbeat Respiratory/Chest Respiratory/Chest: Denies cough, dyspnea or dyspnea on exertion Gastrointestinal Gastrointestinal: Denies abdominal pain, diarrhea, nausea or vomiting Genitourinary Genitourinary ED: Denies dysuria, hematuria or urinary frequency Musculoskeletal Musculoskeletal: Denies back pain, extremity pain or neck pain Integumentary Denies rash or wounds Neurologic Neurologic: Denies headache(s), paresthesias or weakness EXAM Physical Exam Const Vital Signs: 07/11/22 10:26 07/11/22 10:54 07/11/22 10:54 Temperature 98.8 F Temperature Source Temporal Pulse Rate 178 H 103 H Respiratory Rate 24 H 18 Respiratory Effort Normal Non-Labored Blood Pressure 169/80 H 117/102 H Blood Pressure Mean 109 107 Pulse Ox 99 98 Oxygen Delivery Method Room Air Room Air 07/11/22 11:43 Temperature Temperature Source Pulse Rate 87 Respiratory Rate 16 Respiratory Effort Blood Pressure 165/57 H Blood Pressure Mean 93 Pulse Ox 95 Oxygen Delivery Method Room Air Positive well nourished and well developed General Appearance ED: well developed and NAD HEENT Reports moist mucous membranes normocephalic and atraumatic Eyes PERRL, EOMs intact bilaterally and conjunctivae normal General Eye ED: Yes normal appearance of both eyes Neck no lymphadenopathy and supple General: Negative for tenderness Chest Wall Chest: Negative for tenderness Resp normal respiratory effort and normal air movement Effort and Inspection: symmetric chest movement; Negative for respiratory distress Cardio regular rate and no murmurs Rate: tachycardic Peripheral Pulses: pulses 2+ throughout GI normal to inspection, nondistended, normoactive bowel sounds and non-tender Palpation: Negative for guarding or rebound tenderness present Back/Spine no CVA tenderness and no thoracic nor lumbar tenderness Extremity normal to inspection General Extremety ED: Negative for edema or tenderness General Extremity: Negative for edema Neuro oriented x3 and no sensory deficits noted Sensorium / Orientation: awake and alert Skin no rashes or lesions noted and no wounds MDM MDM MDM Narrative Medical decision making narrative: Interventions / MDM: Differential diagnosis: Cardiac dysrhythmia, atrial fibrillation, atrial flutter, SVT, Diagnosis considered but do not suspect: Ventricular tach however not seen on EKG, pulmonary embolism, however no dyspnea or hypoxia My EKG interpretation: EKG #1 sinus rate of [address] depression lateral leads there is no elevations. EKG #2 sinus rate of [address] depression lateral leads improved from initial exam. Imaging independently reviewed and interpreted by myself: 1 view chest x-ray no acute process External documents reviewed: N/A Test considered but not ordered:N/A ED course: Patient improving palpitations during my evaluation. EKG had sinus rhythm possible underlying flutter. She had ST depressions with elbow pain and no chest pains. Labs and cardiac work-up initiated chest x-ray obtained and normal. Re-evaluation: Patient remained stable. Labs stable. Initial troponin negative. Heart rate in the 80s on reevaluation. Patient history of CVA, had heart rate 178 from triage, I spoke with on-call stogy roller Dr. Kirk, he reports with her CVA history initial heart rate concerning likely dysrhythmia least a flutter versus atrial fibrillation. He would like her observed in the hospital for monitoring of heart rhythm, will plan for event monitor if symptoms do not recur as she would require anticoagulation if this is noted due to her stroke history to prevent future strokes. I spoke with hospitalist Dr. Dow for admission to PCU. Disposition discussed with patient/family/significant other: Patient and s ignificant other Case discussed with consulting clinician: Cider [employer] Operator, Dr. Kirk, hospitalist Dr. Dow. Lab Data Attestation: I reviewed the patient's lab results. Labs: Laboratory Results - last 24 hr 07/11/22 07/11/22 07/11/22 10:43 10:43 11:51 WBC 8.6 RBC 3.70 L Hgb 13.0 Hct 38.7 MCV 104.6 H MCH 35.1 H MCHC 33.6 RDW Std Deviation 57.6 H RDW Coeff of Alvin 14.8 H Plt Count 154 MPV 11.1 Immature Gran % (Auto) 0.800 Neut % (Auto) 74.6 H Lymph % (Auto) 13.5 L [place] % (Auto) 11.0 H Eos % (Auto) 0.0 Baso % (Auto) 0.1 Absolute Neuts (auto) 6.4 Absolute Lymphs (auto) 1.16 Nucleated RBC % 0 Sodium 136 Potassium 4.6 Chloride 108 H Carbon Dioxide 22.0 Anion Gap 6 BUN 19 H Creatinine 1.02 Estim Creat Clear Calc 37.69 Est GFR (MDRD) Af Amer 68 Est GFR (MDRD) Non-Af 56 L BUN/Creatinine Ratio 18.6 Glucose 193 H Calcium 9.1 Magnesium 2.3 Troponin I High Sens Cancelled Radiography Diagnostic Testing: Clinical Impression(s) from Imaging Studies Chest X-Ray 07/11/22 10:45 IMPRESSION: No radiographic evidence of acute cardiopulmonary disease. Electronically Signed: Cailin Moralez MD at 11:12 EST , EKG Initial EKG: Attestation: I personally reviewed and interpreted this EKG as follows: Comments: At 1028: Sinus rate of 134, no ST or T wave changes. Follow-up EKG: Attestation: I personally reviewed and interpreted this EKG as follows: Comments: At 1032: Sinus rate of 107, no ST or T wave changes. Discharge Plan Dx/Rx/DC Orders Clinical Impression: Palpitations, History of hypertension, History of CVA (cerebrovascular accident), Sinus tachycardia Disposition Disposition: Acute Care Hospital [facility] Discharge Date/Time: 07/11/22 12:43
[2022-07-11 11:12] LABS: Anion Gap 6 (5-15); BUN 19 mg/dL (7-18); BUN/Creat Ratio 18.6 RATIO (10-20); Calcium,Total 9.1 mg/dL (8.5-10.1); Chloride 108 mmol/L (98-107); Creatinine, Serum 1.02 mg/dL (0.55-1.02); EST Glomerular Filtration Rate 56 mL/min (>60); Est Glom Filt Rate - Afr Amer 68 mL/min (>60); Estimated Creatinine Clearance 37.69 ml/min; Glucose 193 mg/dL (74-106); Magnesium 2.3 mg/dL (1.6-2.6); Potassium 4.6 mmol/L (3.5-5.1); Sodium Level 136 mmol/L (136-145)
--- NOTE | 2022-07-11 12:07 | HP.PCM.HOS_ITS ---
HPI - General General Date of Admission: 07/11/22 Date of Service: 07/11/22 Chief Complaint: palpitations HPI Narrative CRISTINO NOLAN, is a 77 Fwith a PMH as outlined who presents via the ED with a complaint of palpitations whilst watchint tv. It started 2 hours prior to arrival. She denied any chest pain, nasuea, shortness of breath or any other symptoms. She hasnt had such symptoms before. She hasnt had any recent long distance travel, and also denies any history of DVT or PE. She does admit to drinking alcohol and she states she drinks about 3 to 4 glasses of wine every night. On arrival in the ED, HR was 178 in triage. Heart rate subsequently trended downwards and at time of my review her heart rate was 87. BP was 165/57 and oxygen saturation was 95% on room air. CBC was unremarkable and BMP was also unremarkable. Chest x-ray showed no acute cardiopulmonary process. EKG also shows sinus tachycardia. She has been admitted to be managed for palpitations. Troponin was checked and initial troponin was over 500. Therefore she was admitted and diagnosis changed to non-STEMI. [facility] Home Medications estradiol 0.01% (0.1 mg/gram) vaginal cream (Estrace) 1 dose vaginal UD HORMONES 02/11/14 [History Last Taken Unknown] budesonide 3 mg capsule,delayed,extended release 9 mg PO DAILY COLITIS 07/11/22 [History Last Taken 07/11/22] calcium carbonate 600 mg-vitamin D3 5 mcg (200 unit) tablet 1 tab PO DAILY SUPPLEMENT 07/11/22 [History Last Taken 07/11/22] clopidogrel 75 mg tablet 75 mg PO LUNCH BLOOD THINNER 07/11/22 [History Last Taken 07/10/22] coenzyme Q10 50 mg tablet 50 mg PO DAILY SUPPLEMENT 07/11/22 [History Last Taken 07/10/22] cyanocobalamin (vitamin B-12) 1,000 mcg tablet (Vitamin B-12) 1,000 mcg PO DAILY PRN Nausea 07/11/22 [History Last Taken Unknown] diclofenac sodium 1 % topical gel 1 ea topical 4X/DAY PAIN 07/11/22 [History Last Taken 07/10/22] dicyclomine 20 mg tablet 20 mg PO TID IRRITABLE BOWELS 07/11/22 [History Last Taken 07/10/22] escitalopram oxalate 5 mg tablet 5 mg PO DAILY SUPPER 07/11/22 [History Last Taken 07/10/22] ipratropium bromide 21 mcg (0.03 %) nasal spray 2 spray intranasal Q6H PRN CONGESTION/COUGH 07/11/22 [History Last Taken Unknown] irbesartan 75 mg tablet 37.5 mg PO DAILY PRN Blood Pressure 07/11/22 [History Last Taken 1 Week Ago ~07/04/22] levothyroxine 50 mcg tablet 50 mcg PO DAILY THYROID 07/11/22 [History Last Taken 07/11/22] loperamide 2 mg capsule 2 mg PO UD PRN Diarrhea 07/11/22 [History Last Taken Unknown] melatonin 10 mg tablet 10 mg PO QHS PRN Sleep 07/11/22 [History Last Taken Unknown] mirtazapine 7.5 mg tablet 7.5 mg PO QHS PRN DEPRESSION/ANXIETY 07/11/22 [History Last Taken Unknown] multivitamin 1 tab PO DAILY HEALTH MAINTENANCE 07/11/22 [History Last Taken 07/10/22] rosuvastatin 10 mg tablet 10 mg PO QHS CHOLESTEROL 07/11/22 [History Last Taken 07/09/22] thiamine HCl (vitamin B1) 100 mg tablet 100 mg PO BIDCM SUPPLEMENT 07/11/22 [History Last Taken 07/10/22] triamcinolone acetonide 0.1 % topical cream 1 applic topical BID PRN Skin Irritation 07/11/22 [History Last Taken Unknown] vitamin B complex 1 tab PO DAILY SUPPLEMENT 07/11/22 [History Last Taken 07/10/22] Allergy/AdvReac Type Severity Reaction Status Date / Time Penicillins Allergy Unknown Verified 07/11/22 10:28 sulfamethoxazole Allergy Hives Verified 07/11/22 10:28 [From Bactrim] trimethoprim [From Bactrim] Allergy Hives Verified 07/11/22 10:28 Social History Smoking Status: Former smoker ROS Constitutional Constitutional: Denies anorexia, chills, fatigue, fever(s), malaise or weakness Eyes Eyes: Denies change in vision ENT HEENT: Denies dysphagia or headache(s) Cardiovascular Cardiovascular: Reports palpitations; Denies chest pain, dyspnea on exertion, edema, lightheadedness or orthopnea Respiratory/Chest Respiratory/Chest: Denies cough, dyspnea, productive cough, shortness of breath at rest or shortness of breath with exertion Gastrointestinal Gastrointestinal: Denies abdominal pain, constipation, diarrhea, nausea or vomiting Genitourinary Genitourinary: Denies dysuria Neurologic Neurologic: Denies confusion Psychiatric Psychiatric: Denies anxiety or depression Vital Signs Vital Signs Vital Signs: 07/11/22 10:26 07/11/22 10:54 07/11/22 10:54 Temperature 98.8 F Temperature Source Temporal Pulse Rate 178 H 103 H Respiratory Rate 24 H 18 Respiratory Effort Normal Non-Labored Blood Pressure 169/80 H 117/102 H Blood Pressure Mean 109 107 Pulse Ox 99 98 Oxygen Delivery Method Room Air Room Air 07/11/22 11:43 Temperature Temperature Source Pulse Rate 87 Respiratory Rate 16 Respiratory Effort Blood Pressure 165/57 H Blood Pressure Mean 93 Pulse Ox 95 Oxygen Delivery Method Room Air Weight Weight: 147 lb 14.4 oz Body Mass Index (BMI) 27.0 Physical Exam Const alert, oriented x3 and no apparent distress HEENT normocephalic, head/scalp atraumatic, hearing grossly normal bilaterally and moist oral mucous membranes Mouth: oral and palatal mucosa normal Eyes PERRL, EOMs intact bilaterally and conjunctivae normal Neck no lymphadenopathy and supple Resp normal respiratory effort, no retractions, no use of accessory muscles and clear to auscultation bilaterally Cardio regular rate, regular rhythm, S1 normal heart sound, S2 normal heart sound and no murmurs GI normal to inspection, nondistended, normoactive bowel sounds, soft to palpation, non-tender and non-distended Extremity normal to inspection, full ROM and no clubbing, cyanosis or edema Neuro oriented x3, CN's II-XII intact bilaterally, moves all extremities and no focal motor deficits Sensorium / Orientation: awake Motor Exam: strength 5/5 throughout Psych affect normal Results Lab / Micro Data Result Diagrams: 07/11/22 10:43 07/11/22 10:43 Labs: Laboratory Results - last 24 hr 07/11/22 10:43: WBC 8.6, RBC 3.70 L, Hgb 13.0, Hct 38.7, MCV 104.6 H, MCH 35.1 H , MCHC 33.6, RDW Std Deviation 57.6 H, RDW Coeff of Alvin 14.8 H, Plt Count 154, MPV 11.1, Immature Gran % (Auto) 0.800, Neut % (Auto) 74.6 H, Lymph % (Auto) 13 .5 L, Mcmullen % (Auto) 11.0 H, Eos % (Auto) 0.0, Baso % (Auto) 0.1, Absolute Neuts (auto) 6.4, Absolute Lymphs (auto) 1.16, Nucleated RBC % 0 07/11/22 10:43: Sodium 136, Potassium 4.6, Chloride 108 H, Carbon Dioxide 22.0, Anion Gap 6, BUN 19 H, Creatinine 1.02, Estim Creat Clear Calc 37.69, Est GFR (MDRD) Af Amer 68, Est GFR (MDRD) Non-Af 56 L, BUN/Creatinine Ratio 18.6, Glucose 193 H, Calcium 9.1, Magnesium 2.3 Radiology Impression Chest X-Ray 07/11/22 10:45 IMPRESSION: No radiographic evidence of acute cardiopulmonary disease. Electronically Signed: Cailin Moralez MD at 11:12 EST , Assessment & Plan Assessment/Plan (1) Palpitations: PLAN: Plan #Nonstemi * admit to PCU. Patient presented with palpitations. * this is new onset palpitations. Doesnt have a known history of arrhythmia * EKG showed some ST depression in the inferior and anterior leads. * HR now down to 80s * get 2D echo tomorrow * Initial troponin checked was over 500. We will therefore cycle troponins. * P.o. aspirin 325 mg x 1. We will continue with aspirin 81 mg daily. High intensity statin and therapeutic Lovenox ordered. Already on high intensity statin, aspirin and Plavix. * Cardiology consulted. * * #History of stroke: n aspirin, plavix and high intensity statin. #Hypertension: on irbesartan #Hypothyroidism: on synthroid. check TSH #Alcohol use disorder: * Drinks at least 4 glasses of wine every night. * Not in withdrawal. * Placed on p.o. thiamine, folic acid and Multivite * Monitor for withdrawal * #Depression: On escitalopram and triamcinolone DVT prophylaxis: lovenox Code status: full code * Patient counseled extensively about different types of CODE STATUS including full code, DNR CCA and DNR CCA. Patient elects to be full code. * Total [id number] time 17 minutes. * Total time spent on seen and reviewing patient, examining patient, discussion of plan with patient and her , reviewing chart, discussion with specialist and documentation in EMR: 55 minutes. Charges/Coding Visit Charges Inpatient E&M: 59117 Init Hosp L3 Procedures Hospitalists Procedures: 98802 Advncd Care Plan 30 Min
[2022-07-11 13:13] LABS: Troponin-I HS (w/2H Reflex) 572 pg/mL (3.0-54.0)
--- NOTE | 2022-07-11 13:42 | EKG12_ITS ---
Test Reason : AM EKG Blood Pressure : / mmHG Vent. Rate : 071 BPM Atrial Rate : 000 BPM P-R Int : 000 ms QRS Dur : 084 ms QT Int : 420 ms P-R-T Axes : 000 039 046 degrees QTc Int : 456 ms Sinus rhythm Anteroseptal infarct , age undetermined Abnormal ECG Confirmed by FEDERICO CROWDER, HAILY ([id number]), film and video editor PIEDAD SLAUGHTER ([id number]) on 07/14/2022 1:20:24 PM Referred By: Confirmed By:HAILY CABALLERO MD
[2022-07-11] MEDS: 0.9% Normal Saline 1,000 ML 75 ML IV (14:05)
[2022-07-11] MEDS: Aspirin 325 MG Tablet PO (14:05)
[2022-07-11] MEDS: Enoxaparin 80 MG/0.8 ML Syringe 70 MG SC (14:13)
[2022-07-11] MEDS: Atorvastatin Calcium 40 MG Tablet PO (14:13)
[2022-07-11 14:41] LABS: Reflex Troponin-HS? (from REC) Y
[2022-07-11 15:50] LABS: Troponin-I HS 1310 pg/mL (3.0-54.0)
--- NOTE | 2022-07-11 16:21 | CON.PCM.CA_ITS ---
Assessment & Plan Assessment/Plan (1) History of CVA (cerebrovascular accident): (2) Sinus tachycardia: (3) History of hypertension: (4) Non-STEMI (non-ST elevated myocardial infarction): PLAN: Plan 77-year-old patient, presented to the ER complaining of palpitation While watching TV she does not have any symptoms of chest pain to report she had shortness of breath no other significant symptoms reported in particular no history of PE or deep vein thrombosis. She has sinus tachycardia on arrival and she has been stable hemodynamically. This patient with history of stroke, hypertension, hypothyroidism and alcohol use. Cardiac auscultation requested as she had symptoms of palpitation with change in the EKG and elevated cardiac biomarker With a clinical diagnosis of non-ST elevation ND. Cardiac care plan recommendations; 1. We will continue current treatment Echocardiogram to evaluate LV function 2. I scheduled the patient for cardiac catheterization tomorrow/right radial artery approach Further plan of management will be based on the results of the echo and the cardiac catheterization. HPI Consult Data Date of Consult: 07/11/22 HPI Narrative Reason for Consultation: Non-STEMI HPI Narrative: CRISTINO NOLAN, is a 77 F who presents PFS Home Medications estradiol 0.01% (0.1 mg/gram) vaginal cream (Estrace) 1 dose vaginal UD HORMONES 02/11/14 [History Last Taken Unknown] budesonide 3 mg capsule,delayed,extended release 9 mg PO DAILY COLITIS 07/11/22 [History Last Taken 07/11/22] calcium carbonate 600 mg-vitamin D3 5 mcg (200 unit) tablet 1 tab PO DAILY SUPPLEMENT 07/11/22 [History Last Taken 07/11/22] clopidogrel 75 mg tablet 75 mg PO LUNCH BLOOD THINNER 07/11/22 [History Last Taken 07/10/22] coenzyme Q10 50 mg tablet 50 mg PO DAILY SUPPLEMENT 07/11/22 [History Last Taken 07/10/22] cyanocobalamin (vitamin B-12) 1,000 mcg tablet (Vitamin B-12) 1,000 mcg PO DAILY PRN Nausea 07/11/22 [History Last Taken Unknown] diclofenac sodium 1 % topical gel 1 ea topical 4X/DAY PAIN 07/11/22 [History Last Taken 07/10/22] dicyclomine 20 mg tablet 20 mg PO TID IRRITABLE BOWELS 07/11/22 [History Last Taken 07/10/22] escitalopram oxalate 5 mg tablet 5 mg PO DAILY SUPPER 07/11/22 [History Last Taken 07/10/22] ipratropium bromide 21 mcg (0.03 %) nasal spray 2 spray intranasal Q6H PRN CONGESTION/COUGH 07/11/22 [History Last Taken Unknown] irbesartan 75 mg tablet 37.5 mg PO DAILY PRN Blood Pressure 07/11/22 [History La st Taken 1 Week Ago ~07/04/22] levothyroxine 50 mcg tablet 50 mcg PO DAILY THYROID 07/11/22 [History Last Taken 07/11/22] loperamide 2 mg capsule 2 mg PO UD PRN Diarrhea 07/11/22 [History Last Taken U nknown] melatonin 10 mg tablet 10 mg PO QHS PRN Sleep 07/11/22 [History Last Taken Unknown] mirtazapine 7.5 mg tablet 7.5 mg PO QHS PRN DEPRESSION/ANXIETY 07/11/22 [History Last Taken Unknown] multivitamin 1 tab PO DAILY HEALTH MAINTENANCE 07/11/22 [History Last Taken 07/10/22] rosuvastatin 10 mg tablet 10 mg PO QHS CHOLESTEROL 07/11/22 [History Last Taken 07/09/22] thiamine HCl (vitamin B1) 100 mg tablet 100 mg PO BIDCM SUPPLEMENT 07/11/22 [History Last Taken 07/10/22] triamcinolone acetonide 0.1 % topical cream 1 applic topical BID PRN Skin Irritation 07/11/22 [History Last Taken Unknown] vitamin B complex 1 tab PO DAILY SUPPLEMENT 07/11/22 [History Last Taken 07/10/22] Allergy/AdvReac Type Severity Reaction Status Date / Time Penicillins Allergy Unknown Verified 07/11/22 10:28 sulfamethoxazole Allergy Hives Verified 07/11/22 10:28 [From Bactrim] trimethoprim [From Bactrim] Allergy Hives Verified 07/11/22 10:28 Social History Smoking Status: Former smoker Physical Exam Cardio Cardio Narrative: Seen evaluated along with the nursing staff in PCU No symptoms of chest pain reported She has symptoms of generalized discomfort involving both shoulders and hips when she vacuum at home And also noted mainly on exertion. Review of bus driver/monitor showed underlying normal sinus rhythm Cardiovascular examination; S1-S2 normal No systolic or diastolic sounds heard Chest examination clear to auscultation bilateral. Examination lower extremity no clubbing no cyanosis no lower extremity edema noted. Risk Stratification Risk Stratification Applicable: Yes Age >/= 65: Yes >/= 3 CAD Risk Factors (HTN, HLD, DM, family hx of CAD, or current smoker): Yes Aspirin Use in the Past 7 Days: Yes Severe Angina (>/= episodes in 24 hours): No EKG ST Changes >/= 0.5mm: Yes Positive Cardiac Marker: Yes RABIA Risk Stratification Score: 5 RABIA % Risk: 25% Risk Objective Data Vital Signs: Vital Signs Temp Pulse Resp BP Pulse Ox O2 Del Method 99.1 F 78 14 147/48 H 97 Room Air 07/11/22 13:32 07/11/22 13:32 07/11/22 13:32 07/11/22 13:32 07/11/22 13:32 07/11/22 13:46 Oxygen Delivery Method Room Air Weight: 147 lb 0.773 oz Body Mass Index (BMI) 27.3 Intake & Output: Intake and Output for Last 24 Hours 07/09/22 07/10/22 07/11/22 23:59 23:59 23:59 Intake Total 500 / 500 Balance 500 / 500 Lab / Micro Data Result Diagrams: 07/11/22 10:43 07/11/22 10:43 Labs: Laboratory Results - last 24 hr 07/11/22 10:43: WBC 8.6, RBC 3.70 L, Hgb 13.0, Hct 38.7, MCV 104.6 H, MCH 35.1 H , MCHC 33.6, RDW Std Deviation 57.6 H, RDW Coeff of Alvin 14.8 H, Plt Count 154, MPV 11.1, Immature Gran % (Auto) 0.800, Neut % (Auto) 74.6 H, Lymph % (Auto) 13.5 L, [place] % (Auto) 11.0 H, Eos % (Auto) 0.0, Baso % (Auto) 0.1, Absolute Neuts (auto) 6.4, Absolute Lymphs (auto) 1.16, Nucleated RBC % 0 07/11/22 10:43: Sodium 136, Potassium 4.6, Chloride 108 H, Carbon Dioxide 22.0, Anion Gap 6, BUN 19 H, Creatinine 1.02, Estim Creat Clear Calc 37.69, Est GFR (MDRD) Af Amer 68, Est GFR (MDRD) Non-Af 56 L, BUN/Creatinine Ratio 18.6, Glucose 193 H, Calcium 9.1, Magnesium 2.3 07/11/22 11:51: Troponin I High Sens Cancelled 07/11/22 12:37: Troponin I High Sens 572 H* 07/11/22 14:37: Troponin I High Sens 1310 H* Cardiology Labs/Tests 07/11/22 10:43: WBC 8.6, RBC 3.70 L, Hgb 13.0, Hct 38.7, MCV 104.6 H, MCH 35.1 H , MCHC 33.6, Plt Count 154, MPV 11.1, Immature Gran % (Auto) 0.800, Neut % (Aut o) 74.6 H, Lymph % (Auto) 13.5 L, [place] % (Auto) 11.0 H, Eos % (Auto) 0.0, Baso % (Auto) 0.1, Absolute Neuts (auto) 6.4, Nucleated RBC % 0 07/11/22 10:43: Sodium 136, Potassium 4.6, Chloride 108 H, Carbon Dioxide 22.0, Anion Gap 6, BUN 19 H, Creatinine 1.02, Est GFR (MDRD) Af Amer 68, Est GFR (MDRD) Non-Af 56 L, BUN/Creatinine Ratio 18.6, Glucose 193 H, Calcium 9.1, Magnesium 2.3 Rhythm: Normal sinus rhythm EKG: Nonspecific ST-T change Radiography Diagnostic Testing: Radiology Impression Chest X-Ray 07/11/22 10:45 IMPRESSION: No radiographic evidence of acute cardiopulmonary disease. Electronically Signed: Cailin Moralez MD at 11:12 EST ,
[2022-07-11] MEDS: Metoprolol Tartrate 25 MG Tablet 12.5 MG PO (18:51)
[2022-07-11 19:12] LABS: Troponin-I HS 2051 pg/mL (3.0-54.0)
--- NOTE | 2022-07-11 19:15 | CASEMGMT ---
Addendum entered by Zurdo Smith 07/12/22 09:52: [facility] is also In-network /[facility]. Original Note: BELEN DECKER NOTE:? Insurance review for hospitals In-network with [facility] Insurance if transfer is recommended is as follows:? [facility], Josh, CC, [facility] ([facility]), and .? Bernarda PAREKH RN CM
[2022-07-12] VITALS (26 sets, daily range): BP systolic 97–180; BP diastolic 29–127; PULSE 52–135; RESP 12–18; TEMP 36.1–36.9; O2SAT 88–99
[2022-07-12] MEDS: Losartan Potassium 25 MG Tablet PO ×2 (00:35→06:02)
[2022-07-12] MEDS: 0.9% Normal Saline 1,000 ML 75 ML IV ×2 (00:35→10:54)
[2022-07-12 05:52] LABS: Absolute Lymphocyte Count 1.46 X10^3/uL (0.83-4.51); Absolute Neutrophil Count 6.5 X10^3/uL (2.0-7.7); Basophil# 0.01 X10^3/uL; Basophil% 0.1 % (0-1); Hematocrit 38.1 % (37-47); Hemoglobin 12.9 g/dL (12.0-15.0); Lymphocyte # 1.46 X10^3/ul (0.83-4.51); Lymphocyte % 15.8 % (19-41); Mean Corp Hgb Conc 33.9 g/dL (32-36); Mean Corpuscular Hgb 34.5 pg (27.0-32.0); Mean Corpuscular Volume 101.9 fL (81-99); Mean Platelet Vol. 10.7 fl (6.2-12.0); Monocyte# 1.19 X10^3/uL; Monocyte% 12.9 % (0-10); NRBC Flagged by Analyzer 0 % (0-5); Neutrophil % 70.5 % (47-70); Platelet Count 155 K/mm3 (150-450); RBC Distribution Width CV 14.5 % (11.6-14.6); RBC Distribution Width SD 54.5 fl (35.1-43.9); Red Blood Count 3.74 M/mm3 (4.2-5.4); White Blood Count 9.2 K/mm3 (4.4-11.0)
--- NOTE | 2022-07-12 05:55 | EKG12_ITS ---
Test Reason : Blood Pressure : / mmHG Vent. Rate : 082 BPM Atrial Rate : 082 BPM P-R Int : 122 ms QRS Dur : 072 ms QT Int : 396 ms P-R-T Axes : 047 055 046 degrees QTc Int : 462 ms Normal sinus rhythm Septal infarct , age undetermined Abnormal ECG Confirmed by FEDERICO CROWDER, HAILY ([id number]), book or script editor PIEDAD SLAUGHTER ([id number]) on 07/14/2022 1:21:42 PM Referred By: JEAN-PIERRE Confirmed By:HAILY CABALLERO MD
--- NOTE | 2022-07-12 05:55 | ECHOD_ITS ---
Reason For Study: Arrhythmia Procedure This was a 2D Doppler, Color Flow transthoracic echocardiogram. Exam performed portable in patient room. Left Ventricle Normal LV size. Left ventricular systolic function is normal. The estimated ejection fraction is 65 %. Stage 1 diastolic dysfunction. No regional wall motion abnormalities noted. Right Ventricle Normal RV size. Normal systolic function. Tricuspid Valve Normal tricuspid valve. Mild to moderate (1-2+) tricuspid valve insufficiency. Pulmonary artery systolic pressure is 48 mmHg. Pulmonic Valve The pulmonic valve is not well visualized. Great Vessels Normal aortic root. The pulmonary artery is normal size. Normal inferior vena cava. Pericardium/Pleural No pericardial effusion. MMode/2D Measurements & Calculations LVIDd: 3.8 cm IVSd: 1.3 cm Ao root diam: 2.8 cm LVIDs: 2.4 cm LVPWd: 1.2 cm RVDd: 2.8 cm FS: 36.5 % LAV(MOD-bp): 48.0 ml SV(MOD-sp4): 26.1 ml LVAd ap4: 17.9 cm2 LAV(MOD-bp) Indexed: 29.0 ml/m2 LVLd ap4: 6.8 cm LAV(MOD-sp2): 47.6 ml EDV(MOD-sp4): 38.9 ml LAV(MOD-sp4): 42.2 ml EDV(sp4-el): 40.0 ml LVAs ap4: 9.6 cm2 LVLs ap4: 6.1 cm ESV(MOD-sp4): 12.9 ml ESV(sp4-el): 12.7 ml EF(MOD-sp4): 67.0 % EF(sp4-el): 68.3 % SV(sp4-el): 27.4 ml LA A4 area: 17.3 cm2 LA dimension(2D): 4.0 cm RA A4 area: 10.9 cm2 Doppler Measurements & Calculations MV E max serafin: 123.6 cm/sec Lat Peak E' Serafin: 4.7 cm/sec Med Peak E' Serafin: 5.8 cm/sec MV A max serafin: 153.3 cm/sec E/E' lat: 26.5 E/E' med: 21.3 MV E/A: 0.81 Ao V2 max: 161.6 cm/sec LV V1 max: 124.9 cm/sec PA V2 max: 122.0 cm/sec Ao max P.4 mmHg LV V1 max P.2 mmHg Ao V2 mean: 115.4 cm/sec Ao mean P.7 mmHg Ao V2 VTI: 28.3 cm TR max serafin: 336.7 cm/sec TR max P.3 mmHg ECHO/Echo Complete Interpretation Summary Normal LV size. Left ventricular systolic function is normal. The estimated ejection fraction is 65 %. Stage 1 diastolic dysfunction. Pulmonary artery systolic pressure is 48 mmHg. Ordering Physician: Jacquelyn Dow Referring Physician: Florin Aragon Performed By: Eryn Baum, CASSIDY, RVT
[2022-07-12] MEDS: Dicyclomine 10 MG Capsule 20 MG PO ×2 (06:01→19:55)
[2022-07-12] MEDS: Metoprolol Tartrate 25 MG Tablet 12.5 MG PO ×2 (06:01→19:55)
[2022-07-12] MEDS: Levothyroxine 50 MCG Tablet PO (06:01)
[2022-07-12] MEDS: Aspirin E.C. 81 MG Tablet PO (06:02)
[2022-07-12] MEDS: Clopidogrel Bisulfate 75 MG Tablet PO (06:02)
[2022-07-12 06:46] LABS: Anion Gap 6 (5-15); BUN 22 mg/dL (7-18); BUN/Creat Ratio 24.1 RATIO (10-20); Calcium,Total 8.5 mg/dL (8.5-10.1); Chloride 111 mmol/L (98-107); Cholesterol 118 mg/dL (200); Creatinine, Serum 0.91 mg/dL (0.55-1.02); EST Glomerular Filtration Rate 64 mL/min (>60); Est Glom Filt Rate - Afr Amer 77 mL/min (>60); Estimated Creatinine Clearance 40.31 ml/min; Glucose 150 mg/dL (74-106); High Density Lipoprotein 68 mg/dL; Potassium 4.4 mmol/L (3.5-5.1); Sodium Level 140 mmol/L (136-145); Triglycerides 64 mg/dL; Very Low Density Lipoprotein 13 mg/dL (5-40)
--- NOTE | 2022-07-12 07:51 | NURSING ---
This RN called and gave report to BELEN Blount at laboratory clerk.
--- NOTE | 2022-07-12 09:07 | PN.CARD_ITS ---
Subjective Subjective Patient seen and evaluated and underwent cardiac catheterization today. Objective Data Vital Signs: Vital Signs Temp Pulse Resp BP Pulse Ox O2 Del Method 98.0 F 77 16 162/72 H 88 Room Air 07/12/22 06:00 07/12/22 06:01 07/12/22 06:00 07/12/22 06:00 07/12/22 07:48 07/12/22 07:48 Oxygen Delivery Method Room Air Weight: 147 lb 0.773 oz Body Mass Index (BMI) 27.3 Intake & Output: Intake and Output for Last 24 Hours 07/10/22 07/11/22 07/12/22 23:59 23:59 23:59 Intake Total 1220 / 1220 787.5 / 787.5 Balance 1220 / 1220 787.5 / 787.5 Lab / Micro Data Result Diagrams: 07/12/22 05:35 07/12/22 05:35 Labs: Laboratory Results - last 24 hr 07/11/22 10:43: WBC 8.6, RBC 3.70 L, Hgb 13.0, Hct 38.7, MCV 104.6 H, MCH 35.1 H , MCHC 33.6, RDW Std Deviation 57.6 H, RDW Coeff of Alvin 14.8 H, Plt Count 154, MPV 11.1, Immature Gran % (Auto) 0.800, Neut % (Auto) 74.6 H, Lymph % (Auto) 13.5 L, [place] % (Auto) 11.0 H, Eos % (Auto) 0.0, Baso % (Auto) 0.1, Absolute Neuts (auto) 6.4, Absolute Lymphs (auto) 1.16, Nucleated RBC % 0 07/11/22 10:43: Sodium 136, Potassium 4.6, Chloride 108 H, Carbon Dioxide 22.0, Anion Gap 6, BUN 19 H, Creatinine 1.02, Estim Creat Clear Calc 37.69, Est GFR (MDRD) Af Amer 68, Est GFR (MDRD) Non-Af 56 L, BUN/Creatinine Ratio 18.6, Glucose 193 H, Calcium 9.1, Magnesium 2.3 07/11/22 11:51: Troponin I High Sens Cancelled 07/11/22 12:37: Troponin I High Sens 572 H* 07/11/22 14:37: Troponin I High Sens 1310 H* 07/11/22 18:30: Troponin I High Sens 2051 H* 07/12/22 05:35: WBC 9.2, RBC 3.74 L, Hgb 12.9, Hct 38.1, MCV 101.9 H, MCH 34.5 H , MCHC 33.9, RDW Std Deviation 54.5 H, RDW Coeff of Alvin 14.5, Plt Count 155, MPV 10.7, Immature Gran % (Auto) 0.700, Neut % (Auto) 70.5 H, Lymph % (Auto) 15.8 L, [place] % (Auto) 12.9 H, Eos % (Auto) 0.0, Baso % (Auto) 0.1, Absolute Neuts (auto) 6.5, Absolute Lymphs (auto) 1.46, Nucleated RBC % 0 07/12/22 05:35: Sodium 140, Potassium 4.4, Chloride 111 H, Carbon Dioxide 23.0, Anion Gap 6, BUN 22 H, Creatinine 0.91, Estim Creat Clear Calc 40.31, Est GFR (MDRD) Af Amer 77, Est GFR (MDRD) Non-Af 64, BUN/Creatinine Ratio 24.1 H, Glucose 150 H, Calcium 8.5, Triglycerides 64, Cholesterol 118, LDL Cholesterol 37, VLDL Cholesterol 13, HDL Cholesterol 68 Cardiology Labs/Tests 07/11/22 10:43: WBC 8.6, RBC 3.70 L, Hgb 13.0, Hct 38.7, MCV 104.6 H, MCH 35.1 H , MCHC 33.6, Plt Count 154, MPV 11.1, Immature Gran % (Auto) 0.800, Neut % (Auto) 74.6 H, Lymph % (Auto) 13.5 L, [place] % (Auto) 11.0 H, Eos % (Auto) 0.0, Baso % (Auto) 0.1, Absolute Neuts (auto) 6.4, Nucleated RBC % 0 07/11/22 10:43: Sodium 136, Potassium 4.6, Chloride 108 H, Carbon Dioxide 22.0, Anion Gap 6, BUN 19 H, Creatinine 1.02, Est GFR (MDRD) Af Amer 68, Est GFR (MDRD) Non-Af 56 L, BUN/Creatinine Ratio 18.6, Glucose 193 H, Calcium 9.1, Magnesium 2.3 07/12/22 05:35: WBC 9.2, RBC 3.74 L, Hgb 12.9, Hct 38.1, MCV 101.9 H, MCH 34.5 H , MCHC 33.9, Plt Count 155, MPV 10.7, Immature Gran % (Auto) 0.700, Neut % (Auto) 70.5 H, Lymph % (Auto) 15.8 L, [place] % (Auto) 12.9 H, Eos % (Auto) 0.0, Ba so % (Auto) 0.1, Absolute Neuts (auto) 6.5, Nucleated RBC % 0 07/12/22 05:35: Sodium 140, Potassium 4.4, Chloride 111 H, Carbon Dioxide 23.0, Anion Gap 6, BUN 22 H, Creatinine 0.91, Est GFR (MDRD) Af Amer 77, Est GFR (MDRD) Non-Af 64, BUN/Creatinine Ratio 24.1 H, Glucose 150 H, Calcium 8.5, Triglycerides 64, Cholesterol 118, LDL Cholesterol 37, VLDL Cholesterol 13, HDL Cholesterol 68 Rhythm: EKG: ECHO: Stress Test: Cardiac Cath: PCI: CT Surgery: Holter monitor: EPS: PPM: CXR: Chest CT Scan: Radiography Diagnostic Testing: Radiology Impression Chest X-Ray 07/11/22 10:45 IMPRESSION: No radiographic evidence of acute cardiopulmonary disease. Electronically Signed: Cailin Moralez MD at 11:12 EST Reading Location ID and State: [address] [place] [address] Tel , Service support , Physical Exam Const alert, oriented x3 and no apparent distress General Appearance: cooperative HEENT hearing grossly normal bilaterally Head and Scalp: atraumatic Eyes EOMs intact bilaterally Neck General: normal visual inspection Chest inspection of chest normal and palpation of chest normal Resp normal respiratory effort Auscultation: clear to auscultation bilaterally Cardio regular rate, regular rhythm, S1 normal heart sound and S2 normal heart sound Jugular Venous Distention: JVD GI normal to inspection, nondistended, normoactive bowel sounds Extremity normal capillary refill and no pedal edema Peripheral Pulses: Yes pulses 2+ throughout and femoral pulses present Skin no rashes or lesions noted Neuro oriented x3 and CN's II-XII intact bilaterally Psych Appearance: grossly normal and appropriate Assessment & Plan Assessment/Plan (1) Non-STEMI (non-ST elevated myocardial infarction): PLAN: Patient has a history of a non-ST elevation myocardial infarction. Cardiac catheterization demonstrated the following: Normal left main coronary artery. Left anterior descending artery with mild disease. Left circumflex artery with 80% mid circumflex artery stenosis. Right coronary artery which is dominant with no high-grade stenosis. Preserved left ventricular systolic function. Based on the above Thank you for allowing me to participate in the care of your patient. Please don't hesitate to call if any issues arise. findings I will recommend PCI to the above vessel.
--- NOTE | 2022-07-12 09:20 | CL.D_ITS ---
Patient Name: CRISTINO MATA Study Date: 07/12/2022 Performing: Zaheer Burks MD Ht: 61.5 inches 156.21 cm : 1945 Wt: 147.05 lbs 66.7 kg Age: 77 Gender: female BSA: 1.67 PROCEDURE(S) PERFORMED DC01-(93502)LHC/COR/LV CLINICAL PROFILE AND INDICATIONS Indications: Suspected CAD Heart Failure: None Stress/Imaging Stress/Image Study Performed: No CAD Presentations: Non-STEMI. Symptom onset Date/Time: 07/11/22 Time Not Available CONCLUSIONS High-grade stenosis noted in the mid circumflex artery with minimal disease noted in the rest of the vessels. Preserved left ventricular systolic function. RECOMMENDATIONS Referred for immediate PCI DESCRIPTION OF PROCEDURE The patient arrived to the procedure lab. The risks and benefits of the procedure as well as a full description of our services here and current unavailability of surgical backup were fully explained to the patient and/or their significant other prior to the catheterization. The Timeout was completed, verifying the correct patient and procedure. The patient's procedural site was prepped and draped in the usual fashion. Local anesthetic was given subcutaneously to right radial region with Lidocaine 2%. Local anesthetic was given subcutaneously to right groin region with Lidocaine 2%. Using a modified Seldinger technique, arterial access was obtained via the right radial artery, a 6Fr sheath was inserted., arterial access was obtained via the right femoral artery, a 5Fr sheath was inserted. Left Coronary Artery selective angiography was performed in multiple views using a 5 Fr. JL4 catheter. Right Coronary Artery selective angiography was then performed in multiple views using a 5 Fr. 3DRC (Luis Antonio) catheter. Left Ventriculography was performed in HEMPHILL projection using a 5 Fr. Pigtail catheter. LV to AO pullback pressures were then recorded.The arterial sheath was pulled and a TR Band was applied for hemostasis w/ 10ml air CORONARY ANGIOGRAPHY DOMINANCE: Right Dominant LEFT HEART ASSESSMENT Left Ventricular Ejection Fraction: by LV Gram 60 % Normal LV wall motion Normal Left Ventricular systolic function LEFT MAIN: Angiographically normal LEFT ANTERIOR DESCENDING ARTERY: Mild luminal irregularities CIRCUMFLEX ARTERY: MID CIRC: 80 % Stenosis RIGHT CORONARY ARTERY: Mild luminal irregularities COMPLICATIONS PROCEDURE MEDICATIONS Versed 1 mg IV Fentanyl 50 mcg IV Versed 1 mg IV Oxygen: 2 L/min via nasal cannula Oxygen: 4 L/min via nasal cannula Oxygen: 2 L/min via nasal cannula Heparin given IA 07/12/2022 08:23:20 Heparin 3000 unit(s) IV 07/12/2022 09:06:02 Verapamil 2.5mg, Ntg 100mcgs, 3000 units of Heparin given IA 07/12/2022 08:23:20 SUMMARY OF HEMODYNAMIC DATA Time AIR REST ECG 08:07:18 AO 79/42 (57) SA 08:24:33 AO 134/45 (79) 08:29:27 LV 145/9, 24 08:36:17 LV 153/6, 23 08:36:24 LV 148/8, 28 08:36:57 LV 144/7, 27 08:37:03 LVp 142/17, 28 08:37:07 AOp 158/51 (91) 08:37:12 Signed By Zaheer Burks MD On 07/12/2022 09:20:13 Zaheer Burks MD
--- NOTE | 2022-07-12 10:00 | EKG12_ITS ---
Test Reason : POST PCI Blood Pressure : / mmHG Vent. Rate : 069 BPM Atrial Rate : 069 BPM P-R Int : 150 ms QRS Dur : 074 ms QT Int : 412 ms P-R-T Axes : -01 044 049 degrees QTc Int : 441 ms Normal sinus rhythm Septal infarct , age undetermined Abnormal ECG Confirmed by FEDERICO CROWDER, HAILY ([id number]), photograph editor PIEDAD SLAUGHTER ([id number]) on 07/14/2022 1:22:08 PM Referred By: JEAN-PIERRE Confirmed By:HAILY CABALLERO MD
--- NOTE | 2022-07-12 10:06 | CL.I_ITS ---
Patient Name: CRISTINO MATA Study Date: 07/12/2022 Performing: Yeni Najera MD Ht: 62 inches 156.21 cm : 1945 Wt: 147.2 lbs 66.7 kg Age: 77 Gender: female BSA: 1.67 PROCEDURE(S) PERFORMED IC12-(20773/[id number])EDITH W/WO PTCA, SINGLE CORONARY ARTERY CLINICAL PROFILE AND CO-MORBIDITIES Indications: Suspected CAD Heart Failure: None Stress/Imaging Stress/Image Study Performed: No CAD Presentations: Non-STEMI. Symptom onset Date/Time: 07/11/22 Time Not Available CONCLUSIONS Successful EDITH to mLCx RECOMMENDATIONS DESCRIPTION OF PROCEDURE The patient arrived to the procedure lab. The risks and benefits of the procedure as well as a full description of our services here and current unavailability of surgical backup were fully explained to the patient and/or their significant other prior to the catheterization. The Timeout was completed, verifying the correct patient and procedure. The patient's procedural site was prepped and draped in the usual fashion. Local anesthetic was given subcutaneously to right radial region with Lidocaine 2%. Local anesthetic was given subcutaneously to right groin region with Lidocaine 2% Using a modified Seldinger technique,arterial access was obtained via the right radial artery, a 6Fr sheath was inserted., arterial access was obtained via the right femoral artery, a 5Fr sheath was inserted. Left Coronary Artery selective angiography was performed in multiple views using a 5 Fr. JL4 catheter. Right Coronary Artery selective angiography was then performed in multiple views using a 5 Fr. 3DRC (Luis Antonio) catheter. Left Ventriculography was performed in HEMPHILL projection using a 5 Fr. Pigtail catheter. LV to AO pullback pressures were then recorded.The images were reviewed and options discussed. A decision was then made to proceed with an Intervention, IVUS or other adjunct procedure. Arterial sheath was exchanged for a 6 Fr Sheath. XB 3.5 Guide catheter was inserted and engaged into the LCA. BMW Guide wire was advanced to the Circumflex. SC Euphora 2.5x12 Balloon catheter was inserted. PTCA balloon inflated at 10 atms for 16 secs. PTCA balloon inflated at 10 atms for 17 secs. PTCA balloon inflated at 10 atms for 10 secs. Angiogram performed post balloon dilatation. Resolute [place] 2.5x12 Drug Eluting stent was inserted. Angiogram performed post stent deployment. NC Euphora 2.5x8 Balloon catheter was inserted. Angiogram performed post balloon dilatation. Contrast was injected through the sheath and the Right Iliac and Femoral artery were assessed for possible closure device. The arterial sheath was pulled and a TR Band was applied for hemostasis w/ 10ml air. The arterial sheath was pulled and a Perclose closure device was deployed for hemostasis INTERVENTION INFORMATION LESION SITE: Circumflex (Mid) Lesion Complexity: High/C, chronic total occlusion: No, lesion at bifurcation: No, thrombus present: No, lesion length: 11 mm, culprit lesion: Yes, Previously treated lesion: No Pre Stenosis: 90 % Pre intervention RABIA flow: 3 PROCEDURE: Drug Eluting Stent with pre and post dilatation Post Stenosis: 0 % Post intervention RABIA flow: 3 Lesion Devices: Tay .014 190cm BMW [place] Straight Medtronic SC EUPHORA RX 2.5x12 BALLOON Cordis 6 Fr XB3.5 100cm Guide Catheter Medtronic Resolute Devyn RX EDITH 2.5x12 Medtronic NC EUPHORA RX 2.5x08 BALLOON COMPLICATIONS No Complications PROCEDURE MEDICATIONS Versed 1 mg IV Fentanyl 50 mcg IV Versed 1 mg IV Fentanyl 50 mcg IV Oxygen: 2 L/min via nasal cannula Oxygen: 4 L/min via nasal cannula Oxygen: 2 L/min via nasal cannula Heparin given IA 07/12/2022 08:23:20 Heparin 3000 unit(s) IV 07/12/2022 09:06:02 Verapamil 2.5mg, Ntg 100mcgs, 3000 units of Heparin given IA 07/12/2022 08:23:20 SUMMARY OF HEMODYNAMIC DATA Time AIR REST ECG 08:07:18 AO 79/42 (57) SA 08:24:33 AO 134/45 (79) 08:29:27 LV 145/9, 24 08:36:17 LV 153/6, 23 08:36:24 LV 148/8, 28 08:36:57 LV 144/7, 27 08:37:03 LVp 142/17, 28 08:37:07 AOp 158/51 (91) 08:37:12 Signed By Yeni Najera MD On 07/12/2022 10:05:54 Yeni Najera MD
[2022-07-12] MEDS: Escitalopram Oxalate 10 MG Tablet 5 MG PO (10:53)
[2022-07-12] MEDS: Budesonide 3 MG CAPSULE.EC 9 MG PO (10:53)
--- NOTE | 2022-07-12 11:08 | PN.HOSP_ITS ---
Subjective Subjective Doing well, no issues overnight Objective Data Objective Data Vital Signs: Vital Signs Temp Pulse Resp BP Pulse Ox O2 Del Method O2 Flow Rate 97.2 F L 73 18 154/127 H 94 Nasal Cannula 6 07/12/22 10:30 07/12/22 10:30 07/12/22 10:30 07/12/22 10:30 07/12/22 10:30 07/12/22 10:30 07/12/22 10:30 Oxygen Flow Rate (L/min) 6 Oxygen Delivery Method Nasal Cannula Weight: 187 lb 2.759 oz Body Mass Index (BMI) 35.4 Intake & Output: Intake and Output for Last 24 Hours 07/11/22 07/12/22 07/13/22 03:59 03:59 03:59 Intake Total 773.75 / 773.75 Balance 773.75 / 773.75 Lab / Micro Data Result Diagrams: 07/12/22 05:35 07/12/22 05:35 Labs: Laboratory Results - last 24 hr 07/11/22 10:43: Sodium 136, Potassium 4.6, Chloride 108 H, Carbon Dioxide 22.0, Anion Gap 6, BUN 19 H, Creatinine 1.02, Estim Creat Clear Calc 37.69, Est GFR (MDRD) Af Amer 68, Est GFR (MDRD) Non-Af 56 L, BUN/Creatinine Ratio 18.6, Glucose 193 H, Calcium 9.1, Magnesium 2.3 07/11/22 11:51: Troponin I High Sens Cancelled 07/11/22 12:37: Troponin I High Sens 572 H* 07/11/22 14:37: Troponin I High Sens 1310 H* 07/11/22 18:30: Troponin I High Sens 2051 H* 07/12/22 05:35: WBC 9.2, RBC 3.74 L, Hgb 12.9, Hct 38.1, MCV 101.9 H, MCH 34.5 H , MCHC 33.9, RDW Std Deviation 54.5 H, RDW Coeff of Alvin 14.5, Plt Count 155, MPV 10.7, Immature Gran % (Auto) 0.700, Neut % (Auto) 70.5 H, Lymph % (Auto) 15.8 L, Sutter % (Auto) 12.9 H, Eos % (Auto) 0.0, Baso % (Auto) 0.1, Absolute Neuts (auto) 6.5, Absolute Lymphs (auto) 1.46, Nucleated RBC % 0 07/12/22 05:35: Sodium 140, Potassium 4.4, Chloride 111 H, Carbon Dioxide 23.0, Anion Gap 6, BUN 22 H, Creatinine 0.91, Estim Creat Clear Calc 40.31, Est GFR (MDRD) Af Amer 77, Est GFR (MDRD) Non-Af 64, BUN/Creatinine Ratio 24.1 H, Glucose 150 H, Calcium 8.5, Triglycerides 64, Cholesterol 118, LDL Cholesterol 37, VLDL Cholesterol 13, HDL Cholesterol 68 Radiography Diagnostic Testing: Radiology Impression Chest X-Ray 07/11/22 10:45 IMPRESSION: No radiographic evidence of acute cardiopulmonary disease. Electronically Signed: Cailin Moralez MD at 11:12 EST , Physical Exam Narrative General: Alert, Oriented x3, Cooperative, No apparent distress HEENT: Atraumatic, PERRLA, EOMI, Normocephalic Oral: Moist Mucosa Neck: Supple, No JVD Lungs: Diminished, Normal air movement, No rhonchi, No wheeze, No rales Cardiovascular: Regular rate, Regular Rhythm, Normal S1, Normal S2, No murmurs Abdomen: Soft, Non Tender, Non-Distended, No Hepato-splenomegaly Extremities: No edema, Capillary Refill Less than 3 Seconds Skin: No rashes, No breakdown Musculoskeletal: No Tenderness to Palpation of Joints or Extremities Neurological: Cranial nerves II-XII grossly intact, Motor Exam 5/5 strength th roughout, Sensory exam intact to light touch and pain Psych/Mental Status: Normal Affect, Appropriate Assessment & Plan Assessment/Plan (1) Palpitations: PLAN: Plan 1. Nonstemi/HTN/HLD/history of stroke ? Plan for cardiac cath today ? Troponins were elevated ? Echo is pending ? Appreciate cardiology's assistance ? Will continue with her blood pressure medications and make adjustments as necessary based on cath results ? Continue with her aspirin as well as Plavix and her high intense statin 2. Hypothyroidism ? Stable ? Continue with Synthroid 3. Alcohol abuse/depression ? She drinks 4 glasses of wine every night ? Continue with CIWA protocol monitoring for withdrawal symptoms ? Continue with her depression medication DVT: lovenox Charges/Coding Visit Charges Inpatient E&M: 66776 Subs Hosp L2
--- NOTE | 2022-07-12 12:45 | CASEMGMT ---
RN?CM?AIR DEFENSE ARTILLERY SENIOR SERGEANT?CM?to room to meet with patient for initial transition planning/care coordination?assessment.?RN?CM?introduced self and role at [facility].? Pt voices understanding and consents to?assessment?at this time.? Pt laying in bed. Pt is A/O at this time and able to answer questions, but is anxious. Care providers, pharmacy, and demographics verified/updated at this time. PCP: Dr Aragon Specialists: Dr Cabral-pulmonology, Dr Mas-GI, Dr Barbosa-podiatry Preferred Pharmacy: [facility] Insurance: [facility] Prescription Benefit:?Yes Living Will/HPOA:?Has both LW and HCPOA, who is her . Pt made aware these are not on file @ [facility]. LNOK: , Jacob. Son and dtr. Living Arrangements: Lives w/her and son in 2-story home 3-4 steps to enter. States thinks could do FFSU, if needed. Indep w/ADL's and manages her own medications. They all share home mgmt tasks. Pt states she does most of the cooking. Transportation:?Pt states drives self and states no transportation concerns at this time.? also drives. DME: Has CPAP from [facility]. Does not have home O2. States does not know what DME co she would prefer if she qualifies for O2 @ d/c. HHC/SNF: No hx of either. Denies need for HHC. Pt wishes to return home and states has no concerns with going home at time of discharge.? CM?to follow for any discharge planning/needs.? Pt voices no further concerns/needs at this time.? Advised pt to ask for?CM?if any further questions/concerns/needs arise.? Voices understanding. PLAN:??Home Follow for any O2 needs @ d/c. Bernarda OCASION?RN?CM
[2022-07-12] MEDS: hydrALAZINE 20 MG/ML Vial 10 MG IV (12:51)
[2022-07-12] MEDS: Ondansetron 4 MG/2 ML Vial IV (12:51)
--- NOTE | 2022-07-12 13:14 | EKG12_ITS ---
Test Reason : Blood Pressure : / mmHG Vent. Rate : 086 BPM Atrial Rate : 086 BPM P-R Int : 158 ms QRS Dur : 072 ms QT Int : 358 ms P-R-T Axes : 010 024 037 degrees QTc Int : 428 ms Normal sinus rhythm Nonspecific ST abnormality Septal WA, age undetermined, cannot be excluded Abnormal ECG Confirmed by FEDERICO CROWDER, HAILY ([id number]), clinical editor PIEDAD SLAUGHTER ([id number]) on 07/14/2022 1:23:58 PM Referred By: Paloma Confirmed By:HAILY CABALLERO MD
[2022-07-12] MEDS: LORazepam 2 MG/ML Syringe IV ×2 (13:26→18:20)
[2022-07-12] MEDS: 0.9% Saline Lock 10 ML Syringe IV ×2 (13:26→18:20)
--- NOTE | 2022-07-12 14:14 | CRPHASE1_ITS ---
Patient Communication PHII Cardiac Rehab Discussed with Patient:: Yes Guide to Cardiac Rehab Given to Patient:: Yes Cardiac Rehab Facility Choice List Given to Patient:: Yes Choice Program [facility] CR PHII:: Communication Given to CR Cotton Picking Machine Operator:: Sunita Najera Phase II Cardiac Rehab:: Yes Sessions:: 36 sessions - 3 days/wk, 12 weeks Cardiac Rehabilitation Info Cardiac Rehabilitation Program Information: Cardiac Rehab The cardiac rehab team at [facility] consists of highly skilled exercise physiologists, nurses, respiratory therapists and physicians working together with you. Our purpose is to help you have a full recovery and achieve the goals you set for yourself. Over the years many of our patients have returned to activities they assumed they would never do again! We can help restore your confidence and motivation to make lifestyle changes that can have a significant impact on your health and quality of life! We can help answer questions and concerns you may have about exercise, lifestyle, medications, diet, stress and anxiety which are common following a hospitalization. WE monitor ECG and vital signs during exercise and discuss your progress with you and report to your physician(s). Cardiac Rehab is proven to help reduce readmissions, improve functional capacity and lower recurrence of problems with your heart. Our Cardiac Rehab program is Certified by the [place] [employer]io-Vascular and Pulmonary Rehabilitation (AACVPR) and Accredited by the [place] [employer] through our [facility]. You can contact us at . We invite you to call us with your questions or to get started in our program. If you have other questions or concerns be sure to ask your physician/provider during your follow-up visit. WE look forward to seeing you!
--- NOTE | 2022-07-12 14:14 | CRPH1.INSTRU ---
General Education CAD and cardiac anatomy and function:: Patient communicates acknowledgment, Needs reinforcement Explanation of diagnoses and procedures:: Patient communicates acknowledgment, Needs reinforcement Sign/Symptoms of [place]:: Patient communicates acknowledgment, Needs reinforcement Antiplatelet therapy: Patient communicates acknowledgment, Needs reinforcement Proper use of NTG-SL: Patient communicates acknowledgment, Needs reinforcement Emergency procedures and activation of EMS: Patient communicates acknowledgment, Needs reinforcement Compliance of all prescribed medications: Patient communicates acknowledgment, Needs reinforcement Overweight/Obesity Patient Overweight/Obesity Risk Factors Are:: BMI Normal [24-29 & > 65 years old] Recommendations Include:: Weight loss of 5-10%, Reduced calorie diet, Exercise 5-7 times/week Overweight/Obesity:: Patient communicates acknowledgment, Needs reinforcement Hypertension Patient Hypertension Risk Factors Are:: No documented hx of HTN
[2022-07-12] MEDS: Atorvastatin Calcium 40 MG Tablet PO (19:56)
[2022-07-12] MEDS: 0.9% Normal Saline 1,000 ML 999 ML IV (22:45)
[2022-07-13] VITALS (7 sets, daily range): BP systolic 100–122; BP diastolic 39–98; PULSE 60–88; RESP 13–18; TEMP 36.4–36.6; O2SAT 89–98
[2022-07-13] MEDS: 0.9% Saline Lock 10 ML Syringe IV (01:49)
[2022-07-13] MEDS: 0.9% Normal Saline 1,000 ML 75 ML IV (01:49)
[2022-07-13] MEDS: LORazepam 2 MG/ML Syringe IV (02:16)
[2022-07-13] MEDS: Levothyroxine 50 MCG Tablet PO (05:28)
[2022-07-13] MEDS: Enoxaparin 80 MG/0.8 ML Syringe 70 MG SC (05:28)
[2022-07-13] MEDS: Dicyclomine 10 MG Capsule 20 MG PO (05:28)
[2022-07-13 05:59] LABS: Hematocrit 38.1 % (37-47); Hemoglobin 12.5 g/dL (12.0-15.0); Mean Corp Hgb Conc 32.8 g/dL (32-36); Mean Corpuscular Hgb 34.6 pg (27.0-32.0); Mean Corpuscular Volume 105.5 fL (81-99); Platelet Count 139 K/mm3 (150-450); RBC Distribution Width SD 58.7 fl (35.1-43.9); Red Blood Count 3.61 M/mm3 (4.2-5.4); White Blood Count 9.8 K/mm3 (4.4-11.0)
[2022-07-13 06:37] LABS: ALB/GLOB Ratio 0.8 RATIO (0.9-2.4); AST(SGOT) 82 U/L (15-37); Alanine Aminotransfer ALT/SGPT 90 U/L (13-56); Albumin, Serum 2.6 g/dL (3.2-5.0); Alkaline Phosphatase 112 U/L (45-117); Anion Gap 6 (5-15); BUN 24 mg/dL (7-18); Calcium,Total 7.8 mg/dL (8.5-10.1); Chloride 114 mmol/L (98-107); Creatinine, Serum 0.83 mg/dL (0.55-1.02); EST Glomerular Filtration Rate 71 mL/min (>60); Est Glom Filt Rate - Afr Amer 86 mL/min (>60); Estimated Creatinine Clearance 44.19 ml/min; Globulin 3.4 g/dL (2.2-4.2); Glucose 134 mg/dL (74-106); Potassium 4.1 mmol/L (3.5-5.1); Sodium Level 141 mmol/L (136-145)
--- NOTE | 2022-07-13 07:25 | PN.CARD_ITS ---
Subjective Subjective The patient was seen and evaluated. Appears to be doing well. Status post PCI. Objective Data Vital Signs: Vital Signs Temp Pulse Resp BP Pulse Ox O2 Del Method O2 Flow Rate 97.5 F L 60 13 100/41 L 96 Nasal Cannula 4 07/13/22 04:00 07/13/22 04:00 07/13/22 04:00 07/13/22 05:00 07/13/22 04:00 07/13/22 04:00 07/13/22 04:00 Oxygen Flow Rate (L/min) 4 Oxygen Delivery Method Nasal Cannula Weight: 147 lb 0.773 oz Body Mass Index (BMI) 27.3 Intake & Output: Intake and Output for Last 24 Hours 07/11/22 07/12/22 07/13/22 23:59 23:59 23:59 Intake Total 1220 / 1220 4050.00 / 4050.00 211.25 / 211.25 Output Total 400 / 400 Balance 1220 / 1220 4050.00 / 4050.00 -188.75 / -188.75 Lab / Micro Data Result Diagrams: 07/13/22 05:37 07/13/22 05:37 Labs: Laboratory Results - last 24 hr 07/13/22 05:37: WBC 9.8, RBC 3.61 L, Hgb 12.5, Hct 38.1, MCV 105.5 H, MCH 34.6 H , MCHC 32.8, RDW Std Deviation 58.7 H, RDW Coeff of Alvin 15.0 H, Plt Count 139 L, MPV 11.0 07/13/22 05:37: Sodium 141, Potassium 4.1, Chloride 114 H, Carbon Dioxide 21.0, Anion Gap 6, BUN 24 H, Creatinine 0.83, Estim Creat Clear Calc 44.19, Est GFR (M DRD) Af Amer 86, Est GFR (MDRD) Non-Af 71, BUN/Creatinine Ratio 29.0 H, Glucose 134 H, Calcium 7.8 L, Total Bilirubin 2.00 H, AST 82 H, ALT 90 H, Alkaline Phosphatase 112, Total Protein 6.0 L, Albumin 2.6 L, Globulin 3.4, Albumin/Globulin Ratio 0.8 L Cardiology Labs/Tests 07/13/22 05:37: WBC 9.8, RBC 3.61 L, Hgb 12.5, Hct 38.1, MCV 105.5 H, MCH 34.6 H , MCHC 32.8, Plt Count 139 L, MPV 11.0 07/13/22 05:37: Sodium 141, Potassium 4.1, Chloride 114 H, Carbon Dioxide 21.0, Anion Gap 6, BUN 24 H, Creatinine 0.83, Est GFR (MDRD) Af Amer 86, Est GFR (MDRD) Non-Af 71, BUN/Creatinine Ratio 29.0 H, Glucose 134 H, Calcium 7.8 L, Total Bilirubin 2.00 H Rhythm: EKG: ECHO: Stress Test: Cardiac Cath: PCI: CT Surgery: Holter monitor: EPS: PPM: CXR: Chest CT Scan: Radiography Diagnostic Testing: Radiology Impression Echocardiogram 07/12/22 05:55 Interpretation Summary Normal LV size. Left ventricular systolic function is normal. The estimated ejection fraction is 65 %. Stage 1 diastolic dysfunction. Pulmonary artery systolic pressure is 48 mmHg. Ordering Physician: Jacquelyn Dow Referring Physician: Florin Aragon Performed By: Eryn Baum, CASSIDY, RVT Physical Exam Const alert, oriented x3 and no apparent distress General Appearance: cooperative HEENT hearing grossly normal bilaterally Head and Scalp: atraumatic Eyes EOMs intact bilaterally Neck General: normal visual inspection Chest inspection of chest normal and palpation of chest normal Resp normal respiratory effort Auscultation: clear to auscultation bilaterally Cardio regular rate, regular rhythm, S1 normal heart sound and S2 normal heart sound Jugular Venous Distention: JVD GI normal to inspection, nondistended, normoactive bowel sounds Extremity normal capillary refill and no pedal edema Peripheral Pulses: Yes pulses 2+ throughout and femoral pulses present Skin no rashes or lesions noted Neuro oriented x3 and CN's II-XII intact bilaterally Psych Appearance: grossly normal and appropriate Assessment & Plan Assessment/Plan (1) Non-STEMI (non-ST elevated myocardial infarction): PLAN: Patient has a history of a non-ST elevation myocardial infarction. Cardiac catheterization demonstrated the following: Normal left main coronary artery. Left anterior descending artery with mild disease. Left circumflex artery with 80% mid circumflex artery stenosis. Right coronary artery which is dominant with no high-grade stenosis. Preserved left ventricular systolic function. Based on the above the patient underwent PCI to the left circumflex artery successfully. The plan will be to discharge her on guideline directed medical therapy and follow-up as an outpatient in 2 to 4 weeks. Thank you for allowing me to participate in the care of your patient. Please d on't hesitate to call if any issues arise.
--- NOTE | 2022-07-13 09:16 | PN.HOSP_ITS ---
Subjective Subjective CIWA score of 1 but confused this morning and apparently overnight. Objective Data Objective Data Vital Signs: Vital Signs Temp Pulse Resp BP Pulse Ox O2 Del Method O2 Flow Rate 97.5 F L 60 13 100/41 L 90 Nasal Cannula 6 07/13/22 04:00 07/13/22 04:00 07/13/22 04:00 07/13/22 05:00 07/13/22 07:08 07/13/22 07:08 07/13/22 07:08 Oxygen Flow Rate (L/min) 6 Oxygen Delivery Method Nasal Cannula Weight: 147 lb 0.773 oz Body Mass Index (BMI) 27.3 Intake & Output: Intake and Output for Last 24 Hours 07/12/22 07/13/22 07/14/22 03:59 03:59 03:59 Intake Total 3373.75 / 3373.75 100 / 100 Output Total 400 / 400 Balance 3373.75 / 3373.75 -300 / -300 Lab / Micro Data Result Diagrams: 07/13/22 05:37 07/13/22 05:37 Labs: Laboratory Results - last 24 hr 07/13/22 05:37: WBC 9.8, RBC 3.61 L, Hgb 12.5, Hct 38.1, MCV 105.5 H, MCH 34.6 H , MCHC 32.8, RDW Std Deviation 58.7 H, RDW Coeff of Alvin 15.0 H, Plt Count 139 L, MPV 11.0 07/13/22 05:37: Sodium 141, Potassium 4.1, Chloride 114 H, Carbon Dioxide 21.0, Anion Gap 6, BUN 24 H, Creatinine 0.83, Estim Creat Clear Calc 44.19, Est GFR (MDRD) Af Amer 86, Est GFR (MDRD) Non-Af 71, BUN/Creatinine Ratio 29.0 H, Glucose 134 H, Calcium 7.8 L, Total Bilirubin 2.00 H, AST 82 H, ALT 90 H, Alkaline Phosphatase 112, Total Protein 6.0 L, Albumin 2.6 L, Globulin 3.4, Albumin/Globulin Ratio 0.8 L Radiography Diagnostic Testing: Radiology Impression Echocardiogram 07/12/22 05:55 Interpretation Summary Normal LV size. Left ventricular systolic function is normal. The estimated ejection fraction is 65 %. Stage 1 diastolic dysfunction. Pulmonary artery systolic pressure is 48 mmHg. Ordering Physician: Jacquelyn Dow Referring Physician: Florin Aragon Performed By: Eryn Baum, CASSIDY, RVT Physical Exam Narrative General: Alert, disoriented, Cooperative, No apparent distress HEENT: Atraumatic, PERRLA, EOMI, Normocephalic Oral: Moist Mucosa Neck: Supple, No JVD Lungs: Diminished, Normal air movement, No rhonchi, No wheeze, No rales Cardiovascular: Regular rate, Regular Rhythm, Normal S1, Normal S2, No murmurs Abdomen: Soft, Non Tender, Non-Distended, No Hepato-splenomegaly Extremities: No edema, Capillary Refill Less than 3 Seconds Skin: No rashes, No breakdown Musculoskeletal: No Tenderness to Palpation of Joints or Extremities Neurological: Moves all of her extremities, sensation intact Psych/Mental Status: Flat affect, Appropriate Assessment & Plan Assessment/Plan (1) Palpitations: PLAN: Plan 1. Nonstemi/HTN/HLD/history of stroke ? Had a cardiac cath yesterday with a stent placed to the left circumflex ? Troponins were elevated ? Echo with an EF of 65% with stage I diastolic dysfunction and a PA systolic pressure of 48 mmHg stroke team ? Appreciate cardiology's assistance ? Will continue with her blood pressure medications and make adjustments as necessary based on cath results ? Continue with her aspirin as well as Plavix and her high intense statin 2. Hypothyroidism ? Stable ? Continue with Synthroid 3. Alcohol abuse/depression ? She drinks 4 glasses of wine every night ? Continue with CIWA protocol monitoring for withdrawal symptoms ? Continue with her depression medication ? She did get significantly agitated last night and was having elevated CIWA so she was started on the Ativan. I discussed with her today whether or not she wants to go home and continue drinking or if she wants to stay here and try to detox and go into rehab she is currently thinking about it. DVT: lovenox Charges/Coding Visit Charges Inpatient E&M: 98068 Subs Hosp L2
--- NOTE | 2022-07-13 10:00 | EKG12_ITS ---
Test Reason : morning ekg Blood Pressure : / mmHG Vent. Rate : 069 BPM Atrial Rate : 069 BPM P-R Int : 138 ms QRS Dur : 068 ms QT Int : 396 ms P-R-T Axes : 042 028 024 degrees QTc Int : 424 ms Normal sinus rhythm Septal infarct , age undetermined Abnormal ECG Confirmed by FEDERICO CROWDER, HAILY ([id number]), newspaper or periodical editor PIEDAD SLAUGHTER ([id number]) on 07/14/2022 1:23:25 PM Referred By: Paloma Confirmed By:HAILY CABALLERO MD
[2022-07-13] MEDS: Budesonide 3 MG CAPSULE.EC 9 MG PO (10:22)
[2022-07-13] MEDS: Metoprolol Tartrate 25 MG Tablet 12.5 MG PO (10:23)
[2022-07-13] MEDS: Aspirin E.C. 81 MG Tablet PO (10:23)
[2022-07-13] MEDS: Escitalopram Oxalate 10 MG Tablet 5 MG PO (10:24)
--- NOTE | 2022-07-13 11:30 | PCM.DC ---
Discharge Instructions Diet Discharge Diet: Low fat / Low cholesterol Activity Discharge Activity: Return to Normal Activity Dressing / Incision Call your doctor if you observe: Fever of 101 or Higher, Shortness of breath, Dizziness, Fainting spells, Swelling in the ankles, Chest pain and Increased palpitations (irregular heartbeat) Follow Up Care Test Results: Test results from this visit will be discussed in further detail at your follow-up appointment, if applicable. Discharge Plan Admission Admit Date/Time: 07/11/22 18:41 Attending Provider: Mason Beavers Primary Care Provider: Florin Aragon Consulting Providers: Henrik Kirk ; Jacquelyn Dow Discharge Orders/Prescriptions Prescriptions: New aspirin 81 mg Tablet,Delayed Release (Dr/Ec) 81 mg PO BREAKFAST 30 Days Qty: 30 0RF metoprolol tartrate 25 mg Tablet 12.5 mg PO BID 30 Days Qty: 30 0RF Continued estradiol [Estrace] 42.5 GM cream 1 dose vaginal UD loperamide 2 mg capsule 2 mg PO UD PRN (Reason: Diarrhea) clopidogrel 75 mg tablet 75 mg PO LUNCH dicyclomine 20 mg tablet 20 mg PO TID levothyroxine 50 mcg tablet 50 mcg PO DAILY irbesartan 75 mg tablet 37.5 mg PO DAILY PRN (Reason: Blood Pressure) rosuvastatin 10 mg tablet 10 mg PO QHS escitalopram oxalate 5 mg tablet 5 mg PO DAILY mirtazapine 7.5 mg tablet 7.5 mg PO QHS PRN (Reason: DEPRESSION/ANXIETY) multivitamin Tablet 1 tab PO DAILY cyanocobalamin (vitamin B-12) [Vitamin B-12] 1,000 mcg Tablet 1,000 mcg PO DAILY PRN (Reason: Nausea) calcium carbonate-vitamin D3 600 mg-5 mcg (200 unit) Tablet 1 tab PO DAILY triamcinolone acetonide 0.1 % Cream 1 applic TOPICAL BID PRN (Reason: Skin Irritation) vitamin B complex Tablet 1 tab PO DAILY budesonide 3 mg Capsule,Delayed,Extend.Release 9 mg PO DAILY ipratropium bromide 21 mcg (0.03 %) [place],Non-Aerosol 2 spray INTRANASAL Q6H PRN (Reason: CONGESTION/COUGH) diclofenac sodium 1 % gel 1 ea TOPICAL 4X/DAY coenzyme Q10 50 mg Tablet 50 mg PO DAILY melatonin 10 mg Tablet 10 mg PO QHS PRN (Reason: Sleep) thiamine HCl (vitamin B1) 100 MG tablet 100 mg PO BIDCM Referrals / Follow Up: Florin Aragon MD [Primary Care Provider] - Within 1 Week Stanislaw Baum NP, INVENTORY CONTROL/SHIPPING RECEIVING-C [Med Staff - Adv Practice Prof] - 08/09/22 10:00 am Disposition Disposition (needs filled in before D/C Order can be placed): Home, Self Care
--- NOTE | 2022-07-13 11:41 | DS.PCM_ITS ---
Providers Date of Admission: 07/11/22 Primary Care Physician: Dr. Florin Aragon MD Consultations 07/11/22 13:40 Consult: Cardiology Routine Consulting Provider: Henrik Kirk Reason for Consult: nonstemi EMERGENT Consult: No MD Notified: Yes Date Notified: 07/11/22 Time Notified: 13:41 Method of Notification: Verbal Reason For Visit: PALPITATIONS, NSTEMI Diagnosis Discharge Diagnosis (1) Palpitations: Status: Acute Code(s): R00.2 - Palpitations Medications at Discharge Home Medications estradiol 0.01% (0.1 mg/gram) vaginal cream (Estrace) 1 dose vaginal UD HORMONES 02/11/14 budesonide 3 mg capsule,delayed,extended release 9 mg PO DAILY COLITIS 07/11/22 calcium carbonate 600 mg-vitamin D3 5 mcg (200 unit) tablet 1 tab PO DAILY SUPPLEMENT 07/11/22 clopidogrel 75 mg tablet 75 mg PO LUNCH BLOOD THINNER 07/11/22 coenzyme Q10 50 mg tablet 50 mg PO DAILY SUPPLEMENT 07/11/22 cyanocobalamin (vitamin B-12) 1,000 mcg tablet (Vitamin B-12) 1,000 mcg PO DAILY PRN Nausea 07/11/22 diclofenac sodium 1 % topical gel 1 ea topical 4X/DAY PAIN 07/11/22 dicyclomine 20 mg tablet 20 mg PO TID IRRITABLE BOWELS 07/11/22 escitalopram oxalate 5 mg tablet 5 mg PO DAILY SUPPER 07/11/22 ipratropium bromide 21 mcg (0.03 %) nasal spray 2 spray intranasal Q6H PRN CONGESTION/COUGH 07/11/22 irbesartan 75 mg tablet 37.5 mg PO DAILY PRN Blood Pressure 07/11/22 levothyroxine 50 mcg tablet 50 mcg PO DAILY THYROID 07/11/22 loperamide 2 mg capsule 2 mg PO UD PRN Diarrhea 07/11/22 melatonin 10 mg tablet 10 mg PO QHS PRN Sleep 07/11/22 mirtazapine 7.5 mg tablet 7.5 mg PO QHS PRN DEPRESSION/ANXIETY 07/11/22 multivitamin 1 tab PO DAILY HEALTH MAINTENANCE 07/11/22 rosuvastatin 10 mg tablet 10 mg PO QHS CHOLESTEROL 07/11/22 thiamine HCl (vitamin B1) 100 mg tablet 100 mg PO BIDCM SUPPLEMENT 07/11/22 triamcinolone acetonide 0.1 % topical cream 1 applic topical BID PRN Skin Irritation 07/11/22 vitamin B complex 1 tab PO DAILY SUPPLEMENT 07/11/22 aspirin 81 mg tablet,delayed release 81 mg PO BREAKFAST 30 days #30 tabs 07/13/22 metoprolol tartrate 25 mg tablet 12.5 mg PO BID 30 days #30 tabs 07/13/22 Hospital Course Operations None Procedures 2-D Echocardiogram and Cardiac catheterization Summary of Care Provided Minutes Spent on Discharge: 40 Hospital Course: Per HPI: CRISTINO NOLAN, is a 77 Fwith a PMH as outlined? who presents via the ED with a complaint of palpitations whilst watchint tv. It started 2 hours prior to arrival. She denied any chest pain, nasuea, shortness of breath or any other symptoms. She hasnt had such symptoms before. She hasnt had any recent long distance travel, and also denies any history of DVT or PE.? She does admit to drinking alcohol and she states she drinks about 3 to 4 glasses of wine every night. On arrival in the ED, HR was 178 in triage.? Heart rate subsequently trended downwards and at time of my review her heart rate was 87.? BP was 165/57 and oxygen saturation was 95% on room air.? CBC was unremarkable and BMP was also unremarkable.? Chest x-ray showed no acute cardiopulmonary process.? EKG also shows sinus tachycardia.? She has been admitted to be managed for palpitations.? Troponin was checked and initial troponin was over 500.? Therefore she was admitted and diagnosis changed to non-STEMI. Hospital Course: 1.? Nonstemi/HTN/HLD/history of stroke ? Had a cardiac cath yesterday with a stent placed to the left circumflex ? Troponins were elevated ? Echo with an EF of 65% with stage I diastolic dysfunction and a PA systolic pressure of 48 mmHg stroke team ? Appreciate cardiology's assistance ? Will continue with her blood pressure medications ? Continue with her aspirin as well as Plavix and her high intense statin ? I discussed with her the plan for possible discharge today and she expressed understanding of the risk and benefits of going home and she wants to go home today. I did do an ambulatory pulse ox and it seems that her oxygen requirement was secondary to anxiety mostly, she was 89% on room air with ambulation and 92% on room air at rest. We will plan to discharge her on twice daily metoprolol as well as aspirin in conjunction with her baseline Plavix and she can resume her home Crestor as well as her irbesartan. I recommend that she follow-up with her PCP in a week and she is already scheduled to see cardiology on 08/09/2022. 2.? Hypothyroidism ? Stable ? Continue with Synthroid 3.? Alcohol abuse/depression ? She drinks 4 glasses of wine every night ? Continue with CIWA protocol monitoring for withdrawal symptoms ? Continue with her depression medication ? She did get significantly agitated last night and was having elevated CIWA so she was started on the Ativan.? I discussed with her today whether or not she wants to go home and continue drinking or if she wants to stay here and try to detox and go into rehab, she decided that she would rather go home and try to drink less. Weight / BMI Weight Weight: 147 lb 0.773 oz Body Mass Index (BMI) 27.3 ABG / Lab / Microbiology Data Result Diagrams: 07/13/22 05:37 07/13/22 05:37 Laboratory: Laboratory Results - last 24 hr 07/13/22 05:37: WBC 9.8, RBC 3.61 L, Hgb 12.5, Hct 38.1, MCV 105.5 H, MCH 34.6 H , MCHC 32.8, RDW Std Deviation 58.7 H, RDW Coeff of Alvin 15.0 H, Plt Count 139 L, MPV 11.0 07/13/22 05:37: Sodium 141, Potassium 4.1, Chloride 114 H, Carbon Dioxide 21.0, Anion Gap 6, BUN 24 H, Creatinine 0.83, Estim Creat Clear Calc 44.19, Est GFR (MDRD) Af Amer 86, Est GFR (MDRD) Non-Af 71, BUN/Creatinine Ratio 29.0 H, Glucose 134 H, Calcium 7.8 L, Total Bilirubin 2.00 H, AST 82 H, ALT 90 H, Alkaline Phosphatase 112, Total Protein 6.0 L, Albumin 2.6 L, Globulin 3.4, Albumin/Globulin Ratio 0.8 L Radiography Diagnostic Testing: Radiology Impression Echocardiogram 07/12/22 05:55 Interpretation Summary Normal LV size. Left ventricular systolic function is normal. The estimated ejection fraction is 65 %. Stage 1 diastolic dysfunction. Pulmonary artery systolic pressure is 48 mmHg. Ordering Physician: Jacquelyn Dow Referring Physician: Florin Aragon Performed By: Eryn Baum, CASSIDY, RVT D/C Instructions Discharge Diet: Low fat / Low cholesterol Call your doctor if you observe: Fever of 101 or Higher, Shortness of breath, Dizziness, Fainting spells, Swelling in the ankles, Chest pain and Increased palpitations (irregular heartbeat) Meaningful Use Info Meaningful Use Diagnoses (Choose all that apply): None applicable Discharge Plan Admission Admit Date/Time: 07/11/22 18:41 Attending Provider: Mason Beavers Primary Care Provider: Florin Aragon Consulting Providers: Henrik Kirk ; Jacquelyn Dow Discharge Orders/Prescriptions Prescriptions: New aspirin 81 mg Tablet,Delayed Release (Dr/Ec) 81 mg PO BREAKFAST 30 Days Qty: 30 0RF metoprolol tartrate 25 mg Tablet 12.5 mg PO BID 30 Days Qty: 30 0RF Continued estradiol [Estrace] 42.5 GM cream 1 dose vaginal UD loperamide 2 mg capsule 2 mg PO UD PRN (Reason: Diarrhea) clopidogrel 75 mg tablet 75 mg PO LUNCH dicyclomine 20 mg tablet 20 mg PO TID levothyroxine 50 mcg tablet 50 mcg PO DAILY irbesartan 75 mg tablet 37.5 mg PO DAILY PRN (Reason: Blood Pressure) rosuvastatin 10 mg tablet 10 mg PO QHS escitalopram oxalate 5 mg tablet 5 mg PO DAILY mirtazapine 7.5 mg tablet 7.5 mg PO QHS PRN (Reason: DEPRESSION/ANXIETY) multivitamin Tablet 1 tab PO DAILY cyanocobalamin (vitamin B-12) [Vitamin B-12] 1,000 mcg Tablet 1,000 mcg PO DAILY PRN (Reason: Nausea) calcium carbonate-vitamin D3 600 mg-5 mcg (200 unit) Tablet 1 tab PO DAILY triamcinolone acetonide 0.1 % Cream 1 applic TOPICAL BID PRN (Reason: Skin Irritation) vitamin B complex Tablet 1 tab PO DAILY budesonide 3 mg Capsule,Delayed,Extend.Release 9 mg PO DAILY ipratropium bromide 21 mcg (0.03 %) [place],Non-Aerosol 2 spray INTRANASAL Q6H PRN (Reason: CONGESTION/COUGH) diclofenac sodium 1 % gel 1 ea TOPICAL 4X/DAY coenzyme Q10 50 mg Tablet 50 mg PO DAILY melatonin 10 mg Tablet 10 mg PO QHS PRN (Reason: Sleep) thiamine HCl (vitamin B1) 100 MG tablet 100 mg PO BIDCM Referrals / Follow Up: Florin Aragon MD [Primary Care Provider] - Within 1 Week Stanislaw Baum NP, TRANSPORTATION ENGINEERING TECHNICIAN-C [Med Staff - Adv Practice Prof] - 08/09/22 10:00 am Disposition Disposition (needs filled in before D/C Order can be placed): Home, Self Care Charges/Coding Visit Charges Inpatient E&M: 98010 Disch Hosp >30min
--- NOTE | 2022-07-13 11:47 | CASEMGMT ---
Patient has order for discharge. Patient does not qualify for home oxygen per testing. BELEN CM in to room to discuss discharge needs with patient, patient denies needs at this time. Patient had no further questions or concerns at this time.
--- NOTE | 2022-07-13 12:07 | PHA.DC.MC ---
Pharmacy Service has performed discharge medication reconciliation and counseling for this patient. 1. ASPIRIN 81MG PO BREAKFAST 2. METOPROLOL TARTRATE 12.5MG PO BID The patient's discharge medication list was reviewed for discrepancies and discrepancies were resolved. Home Medications estradiol 0.01% (0.1 mg/gram) vaginal cream (Estrace) 1 dose vaginal UD HORMONES 02/11/14 budesonide 3 mg capsule,delayed,extended release 9 mg PO DAILY COLITIS 07/11/22 calcium carbonate 600 mg-vitamin D3 5 mcg (200 unit) tablet 1 tab PO DAILY SUPPLEMENT 07/11/22 clopidogrel 75 mg tablet 75 mg PO LUNCH BLOOD THINNER 07/11/22 coenzyme Q10 50 mg tablet 50 mg PO DAILY SUPPLEMENT 07/11/22 cyanocobalamin (vitamin B-12) 1,000 mcg tablet (Vitamin B-12) 1,000 mcg PO DAILY PRN Nausea 07/11/22 diclofenac sodium 1 % topical gel 1 ea topical 4X/DAY PAIN 07/11/22 dicyclomine 20 mg tablet 20 mg PO TID IRRITABLE BOWELS 07/11/22 escitalopram oxalate 5 mg tablet 5 mg PO DAILY SUPPER 07/11/22 ipratropium bromide 21 mcg (0.03 %) nasal spray 2 spray intranasal Q6H PRN CONGESTION/COUGH 07/11/22 irbesartan 75 mg tablet 37.5 mg PO DAILY PRN Blood Pressure 07/11/22 levothyroxine 50 mcg tablet 50 mcg PO DAILY THYROID 07/11/22 loperamide 2 mg capsule 2 mg PO UD PRN Diarrhea 07/11/22 melatonin 10 mg tablet 10 mg PO QHS PRN Sleep 07/11/22 mirtazapine 7.5 mg tablet 7.5 mg PO QHS PRN DEPRESSION/ANXIETY 07/11/22 multivitamin 1 tab PO DAILY HEALTH MAINTENANCE 07/11/22 rosuvastatin 10 mg tablet 10 mg PO QHS CHOLESTEROL 07/11/22 thiamine HCl (vitamin B1) 100 mg tablet 100 mg PO BIDCM SUPPLEMENT 07/11/22 triamcinolone acetonide 0.1 % topical cream 1 applic topical BID PRN Skin Irritation 07/11/22 vitamin B complex 1 tab PO DAILY SUPPLEMENT 07/11/22 aspirin 81 mg tablet,delayed release 81 mg PO BREAKFAST 30 days #30 tabs 07/13/22 metoprolol tartrate 25 mg tablet 12.5 mg PO BID 30 days #30 tabs 07/13/22 The patient was counseled on the following discharge medications and changes in medications for homegoing were reviewed. The Reason for Use, instructions for use, and potential side effects were reviewed for all new medications. The patient's questions regarding all of their medications were answered. The patient was able to verbally demonstrate an understanding of their discharge medications.
[2022-07-13] MEDS: Clopidogrel Bisulfate 75 MG Tablet PO (12:32)
== END 2022-07-13 13:10 | disposition home or self-care (01) | DRG 247 ==
LOC: ED 12:22 → PCU 13:59
PROVIDERS: Specialist; Admitting Provider Student in an Organized Health Care Education/Training Program; Emergency Provider Emergency Medicine; PCP Family Medicine; Visit Provider Family Medicine
DX: I21.4 Non-ST elevation (NSTEMI) myocardial infarction (principal); F10.139 Alcohol abuse with withdrawal, unspecified; E03.9 Hypothyroidism, unspecified; I10 Essential (primary) hypertension; E78.5 Hyperlipidemia, unspecified; Y90.9 Presence of alcohol in blood, level not specified; F32.A Depression, unspecified; Z79.02 Long term (current) use of antithrombotics/antiplatelets; Z79.82 Long term (current) use of aspirin; Z79.899 Other long term (current) drug therapy; Z86.73 Personal history of transient ischemic attack (TIA), and cerebral infarction without residual deficits; Z87.891 Personal history of nicotine dependence
CPT/HCPCS: 36415; 71045; 80048; 80053; 80061; 83735; 84484; 85025; 85027; 92928; 93005; 93306; 93458; 99152; 99153; 99285; J7030; J7040; A4216; C1725; C1760; C1769; C1874; C1887; C1894; C9600; J2405; Q9967

== ENCOUNTER → 2022-10-18 | Outpatient (CLI) | payer MEDICARE, SELFPAY | END | disposition home or self-care (01) | LOC: MFPLAB 14:48 | PROVIDERS: PCP Family Medicine; Visit Provider Nurse Practitioner Family | DX: E03.9 Hypothyroidism, unspecified (principal) | CPT/HCPCS: 36415; 84443 ==

== ENCOUNTER → 2022-12-02 | Outpatient (CLI) | payer MEDICARE, SELFPAY ==
--- NOTE | 2022-12-02 11:57 | RAD_ITS ---
STUDY: X-RAY CHEST REASON FOR EXAM: Female, 77 years old. Evaluate for pneumonia. TECHNIQUE: Frontal and lateral views of the chest. COMPARISON: Chest dated June 2022. FINDINGS: Cardiomegaly, aortic tortuosity and hyperinflation. New patchy opacity at the left base which may represent atelectasis or early/developing pneumonia. Follow-up chest imaging to resolution recommended. No abnormality of the visualized soft tissue structures of the upper abdomen. RAD/Chest PA and Lateral IMPRESSION: Interval development of new patchy opacity in the left base representing atelectasis or early/developing pneumonia. Follow-up chest imaging to resolution recommended. Electronically Signed: Tha Ag MD at 14:59 EDT ,
== END | disposition home or self-care (01) ==
LOC: MTRAD 11:50
PROVIDERS: PCP Family Medicine; Visit Provider Family Medicine
DX: R09.89 Other specified symptoms and signs involving the circulatory and respiratory systems (principal)
CPT/HCPCS: 71046

== ENCOUNTER → 2023-01-03 | Outpatient (CLI) | payer MEDICARE, SELFPAY ==
--- NOTE | 2023-01-03 10:40 | RAD_ITS ---
STUDY: X-RAY - ABDOMEN/PELVIS REASON FOR EXAM: Female, 77 years old. Abdominal pain. TECHNIQUE: AP supine and upright views of the abdomen and pelvis on 4 images. COMPARISON: None. FINDINGS: Normal visualized lung bases. Normal bowel gas pattern with air seen to the rectosigmoid. No disproportionate dilatation of bowel or free intra-abdominal air. The visualized liver, spleen and kidneys are grossly normal in size and morphology. Marked vascular calcification. Osteopenia with spondylosis and diffuse mild arthrosis. RAD/Abd Inc Decub and/or Erect IMPRESSION: No acute abnormality of the visualized lower chest, abdomen or pelvis. Electronically Signed: Tha Ag MD at 9:18 EDT ,
[2023-01-03 10:43] LABS: Mucous, Urine 0 SEEN /hpf (<or=2+)
[2023-01-03 12:48] LABS: Absolute Lymphocyte Count 2.53 X10^3/uL (0.83-4.51); Absolute Neutrophil Count 4.3 X10^3/uL (2.0-7.7); Basophil# 0.07 X10^3/uL; Basophil% 0.9 % (0-1); Eosinophil# 0.26 X10^3/uL; Eosinophils% 3.3 % (0-5); Hematocrit 42.4 % (37-47); Hemoglobin 14.1 g/dL (12.0-15.0); Lymphocyte # 2.53 X10^3/ul (0.83-4.51); Lymphocyte % 31.9 % (19-41); Mean Corp Hgb Conc 33.3 g/dL (32-36); Mean Corpuscular Hgb 35.8 pg (27.0-32.0); Mean Corpuscular Volume 107.6 fL (81-99); Mean Platelet Vol. 10.3 fl (6.2-12.0); Monocyte# 0.73 X10^3/uL; Monocyte% 9.2 % (0-10); NRBC Flagged by Analyzer 0 % (0-5); Neutrophil # 4.32 X10^3/uL (2.7-7.7); Neutrophil % 54.4 % (47-70); Platelet Count 169 K/mm3 (150-450); RBC Distribution Width CV 13.5 % (11.6-14.6); RBC Distribution Width SD 54.3 fl (35.1-43.9); Red Blood Count 3.94 M/mm3 (4.2-5.4); White Blood Count 7.9 K/mm3 (4.4-11.0)
[2023-01-03 12:59] LABS: Color, Urine Yellow (Yellow); Glucose, Dipstick Normal (Normal); Ketone-Dipstick 5 mg/dl (Negative); Leukocyte Esterase-Dipstick 500 /ul (Negative); Nitrite-Dipstick Positive (Negative); Occult Blood-Urine 10 /ul (Negative); Protein-Dipstick 30 mg/dl (Negative); Urine Clarity Clear (Clear); Urine Urobilinogen 1 mg/dl (Normal)
[2023-01-03 13:06] LABS: Urine Bilirubin Dipstick 1 mg/dL (Negative)
[2023-01-03 13:33] LABS: Bacteria RARE /hpf (None Seen); Red Blood Cells-Urine 0-5 SEEN /hpf (0-5); Squamous Epithelial Cells - UA 0-5 SEEN /hpf (5-10); White Blood Cells 0-5 SEEN /hpf (0-5)
[2023-01-03 14:22] LABS: AST(SGOT) 44 U/L (15-37); Alanine Aminotransfer ALT/SGPT 65 U/L (13-56); Albumin, Serum 3.1 g/dL (3.2-5.0); Alkaline Phosphatase 132 U/L (45-117); Anion Gap 6 (5-15); BUN 19 mg/dL (7-18); BUN/Creat Ratio 18.1 RATIO (10-20); Calcium,Total 9.1 mg/dL (8.5-10.1); Chloride 111 mmol/L (98-107); Creatinine, Serum 1.05 mg/dL (0.55-1.02); EST Glomerular Filtration Rate 54 mL/min (>60); Est Glom Filt Rate - Afr Amer 66 mL/min (>60); Globulin 3.2 g/dL (2.2-4.2); Glucose 155 mg/dL (74-106); Potassium 3.6 mmol/L (3.5-5.1); Protein, Total 6.3 g/dL (6.4-8.2); Sodium Level 142 mmol/L (136-145); Thyroid Stim Hormone (TSH) 2.83 uIU/mL (0.358-3.74)
== END | disposition home or self-care (01) ==
PROVIDERS: PCP Family Medicine; Referring Provider Family Medicine; Visit Provider Family Medicine
DX: R10.9 Unspecified abdominal pain (principal); E03.9 Hypothyroidism, unspecified
CPT/HCPCS: 36415; 74019; 80053; 81001; 84443; 85025

== ENCOUNTER → 2023-01-31 | Outpatient (CLI) | payer MEDICARE, SELFPAY | END | disposition home or self-care (01) | LOC: MFPLAB 10:25 | PROVIDERS: PCP Family Medicine; Visit Provider Family Medicine | DX: N39.0 Urinary tract infection, site not specified (principal) | CPT/HCPCS: 87086; 87088 ==

== ENCOUNTER → 2023-02-04 | Outpatient (CLI) | payer MEDICARE, SELFPAY ==
--- NOTE | 2023-02-04 10:51 | BI_ITS ---
MAMMOGRAPHY - BILATERAL SCREENING REASON FOR EXAM: Female, 77 years old. Routine annual screening examination. PERTINENT HISTORY: Grandmother with breast cancer. TECHNIQUE: Digital bilateral breast lawanda (3D mammographic acquisition) in the CC and MLO projections. 2-D mediolateral oblique (MLO) and craniocaudad (CC) views of both breasts were obtained. CAD: Full Field Digital Mammography with Computer Added Detection was performed. COMPARISON: Comparison is made with prior study dated January 19, 2022 and December 04, 2020. FINDINGS: Breast Composition: The breasts are almost entirely fatty. There are no dominant masses or suspicious calcifications. No other significant abnormalities are identified. There has been no significant change since the prior study. BI/SCRN MAMM (CAD)W/LAWANDA BILAT IMPRESSION: Stable bilateral screening mammogram. Yearly follow-up mammogram recommended. (A) ASSESSMENT CATEGORY: BIRADS Category 1: Negative. A letter regarding these results will be sent to the patient by the facility within 30 days. Approximately 10% of breast cancers are not detected by mammography. A normal mammogram should not delay biopsy of a clinically suspicious abnormality. [id number] Electronically Signed: Felipe Novak MD at 12:08 EDT ,
== END | disposition home or self-care (01) ==
LOC: OPBI 10:50
PROVIDERS: PCP Family Medicine; Referring Provider Family Medicine; Visit Provider Family Medicine
DX: Z12.31 Encounter for screening mammogram for malignant neoplasm of breast (principal)
CPT/HCPCS: 77063; 77067

== ENCOUNTER 2023-04-24 08:24 | Inpatient (IN) | payer MEDICARE, SELFPAY ==
[2023-04-24] VITALS (7 sets, daily range): BP systolic 110–143; BP diastolic 33–84; PULSE 76–130; RESP 14–18; TEMP 36–37.2; O2SAT 94–100; BMI 24.7
--- NOTE | 2023-04-24 08:56 | CT_ITS ---
STUDY: CT ABDOMEN AND PELVIS WITH CONTRAST REASON FOR EXAM: Female, 77 years old. Left lower quadrant pain RADIATION DOSAGE (If Supplied By Facility): CTDIvol = ( 11.13 ) mGy, DLP = ( 432.23 ) mGycm TECHNIQUE: Transaxial images were obtained from the dome of the diaphragm to the symphysis pubis without oral contrast. IV 100mL Isovue-[id number] was administered. Sagittal and coronal images were reconstructed. Individualized dose optimization techniques were used for this CT. COMPARISON: 2013 FINDINGS: There are chronic interstitial fibrotic changes of the lung bases. Calcified coronary vessels noted. Normal liver. There is non-visualization of the gallbladder, which may be secondary to either contraction or a prior cholecystectomy. Normal spleen. Normal pancreas. There is a small amount of fluid around the periphery of the spleen, etiology is uncertain. Normal bilateral adrenal glands. Normal right kidney. No obstructive uropathy, or suspicious solid renal lesion, there are simple left renal cysts. Normal visualized stomach. Abnormally distended fluid-filled small bowel loops are noted consistent with ileus. No clear transition point is identified but there is some mesenteric twisting in the midabdomen best seen on axial images 75 through 84 and coronal recon images 33 through 42. Additionally, there are colonic diverticula and nonspecific thickening of the sigmoid colon with submucosal edema suggesting acute sigmoid diverticulitis. There is no perforation or abscess. There is non-visualization of the appendix. There is diffuse atherosclerotic calcification of the abdominal aorta, without a demonstrated aneurysm. Normal inferior vena cava. Normal retroperitoneum. The bladder is incompletely distended. Uterus is present, the endometrium cannot be accurately evaluated with CT but there is a suggestion of fluid within the endometrium. A dedicated pelvic ultrasound could be of benefit for further evaluation. There is a left inguinal hernia containing fluid but no bowel loops. Bony structures show degenerative change throughout the lumbar spine and pelvis CT/Abdomen/Pelvis W IV Cont ONLY IMPRESSION: Abnormally distended fluid-filled small bowel loops throughout the abdomen consistent with obstruction. Surgical consultation recommended, most likely cause is from adhesions from previous surgery as both the gallbladder and appendix are nonvisualized and likely surgically absent. Sigmoid diverticulosis with some mucosal thickening of the sigmoid findings suggest acute sigmoid diverticulitis without perforation or abscess Simple renal cysts, no specific follow-up needed Small amount of fluid around the periphery of the spleen Uterus is present with low-density fluid apparently present in the endometrium, dedicated pelvic ultrasound recommended for further evaluation Degenerative bony changes Electronically Signed: Mathew Angel MD at 10:26 EST ,
--- NOTE | 2023-04-24 08:57 | ED.VIS.GI ---
HPI HPI - GI History of Present Illness Chief Complaint: Abd Pain Narrative Narrative: 77-year-old female past medical history of hypertension, hyperlipidemia, previous right ovarian oophorectomy and appendectomy presents with left lower quadrant pain that she has had over the last few days. She has had intermittent pain over the last 2 weeks with left lower quadrant pain that would come and go. She states that a few days ago it became more constant. She denies any dysuria or hematuria, no fevers or chills. No problems with bowel movements, no diarrhea. She describes more as a pain in the left lower quadrant. Today, she had nausea and vomiting without any hematemesis. She presents because of the left lower quadrant pain. No exacerbating or alleviating factors. [facility] Medical History (Updated 04/24/23 @ 12:[address] Thomas Menjivar MD) Essential hypertension History of CVA (cerebrovascular accident) History of hypertension Non-STEMI (non-ST elevated myocardial infarction) Home Medications estradiol 0.01% (0.1 mg/gram) vaginal cream (Estrace) 1 dose vaginal UD HORMONES 02/11/14 [History Last Taken Unknown] budesonide 3 mg capsule,delayed,extended release 9 mg PO DAILY COLITIS 07/11/22 [History Last Taken 07/11/22] calcium carbonate 600 mg-vitamin D3 5 mcg (200 unit) tablet 1 tab PO DAILY SUPPLEMENT 07/11/22 [History Last Taken 07/11/22] coenzyme Q10 50 mg tablet 50 mg PO DAILY SUPPLEMENT 07/11/22 [History Last Taken 07/10/22] cyanocobalamin (vitamin B-12) 1,000 mcg tablet (Vitamin B-12) 1,000 mcg PO DAILY PRN Nausea 07/11/22 [History Last Taken Unknown] diclofenac sodium 1 % topical gel 1 ea topical 4X/DAY PAIN 07/11/22 [History Last Taken 07/10/22] dicyclomine 20 mg tablet 20 mg PO TID IRRITABLE BOWELS 07/11/22 [History Last Taken 07/10/22] escitalopram oxalate 5 mg tablet 5 mg PO DAILY SUPPER 07/11/22 [History Last Taken 07/10/22] ipratropium bromide 21 mcg (0.03 %) nasal spray 2 spray intranasal Q6H PRN CONGESTION/COUGH 07/11/22 [History Last Taken Unknown] levothyroxine 50 mcg tablet 50 mcg PO DAILY THYROID 07/11/22 [History Last Taken 07/11/22] melatonin 10 mg tablet 10 mg PO QHS PRN Sleep 07/11/22 [History Last Taken Unknown] mirtazapine 7.5 mg tablet 7.5 mg PO QHS PRN DEPRESSION/ANXIETY 07/11/22 [History Last Taken Unknown] multivitamin 1 tab PO DAILY HEALTH MAINTENANCE 07/11/22 [History Last Taken 07/10/22] rosuvastatin 10 mg tablet 10 mg PO QHS CHOLESTEROL 07/11/22 [History Last Taken 07/09/22] thiamine HCl (vitamin B1) 100 mg tablet 100 mg PO BIDCM SUPPLEMENT 07/11/22 [History Last Taken 07/10/22] triamcinolone acetonide 0.1 % topical cream 1 applic topical BID PRN Skin Irritation 07/11/22 [History Last Taken Unknown] vitamin B complex 1 tab PO DAILY SUPPLEMENT 07/11/22 [History Last Taken 07/10/22] aspirin 81 mg tablet,delayed release 81 mg PO BREAKFAST 30 days #30 tabs 07/13/22 [Rx Last Taken Unknown] clopidogrel 75 mg tablet 75 mg PO DAILY #90 tabs 08/09/22 [Rx Last Taken Unknown] metoprolol tartrate 25 mg tablet 12.5 mg (1/2 x 25 mg) PO BID #90 tabs 08/09/22 [Rx Last Taken Unknown] naltrexone 50 mg tablet 50 mg PO DAILY 08/09/22 [History Last Taken Unknown] irbesartan 75 mg tablet 75 mg PO DAILY Blood Pressure #90 tabs 11/02/22 [Rx Last Taken Unknown] Allergy/AdvReac Type Severity Reaction Status Date / Time Penicillins Allergy Unknown Verified 11/02/22 13:48 sulfamethoxazole Allergy Hives Verified 11/02/22 13:48 [From Bactrim] trimethoprim [From Bactrim] Allergy Hives Verified 11/02/22 13:48 Family History Father Myocardial infarction by [place]-60s CHF (congestive heart failure) Mother Chest pain Uncle Diabetes Surgical History (Updated 04/24/23 @ 09:13 by Peace Rivera RN) History of coronary artery stent placement (07/12/22) Hx laparoscopic cholecystectomy Social History Smoking Status: Former smoker ROS ROS ED ROS Narrative Constitutional: No fever, no chills. HEENT: No sore throat. No neck pain. No loss of vision. No rhinorrhea. Cardiovascular: No chest pain. No palpitations. No pedal edema. Respiratory: No cough, no shortness of breath. Abdominal: Left lower quadrant abdominal pain intermittent for the last 2 weeks, more constant over the last few days. Positive nausea and vomiting today without hematemesis. No diarrhea or problems with bowel movements. Genitourinary: No dysuria. No hematuria. Musculoskeletal: No myalgias. No arthralgias. Neurologic: No headaches. No dizziness. No lightheadedness. Skin: No rash. No change in color. Psychiatric: No depression. No anxiety. EXAM Physical Exam Narrative Exam Narrative: Afebrile. Vital signs noted. Positive tachycardia. Lungs clear to auscultation bilaterally. Abdomen soft with mild tenderness to palpation left lower quadrant. No palpable hernia. No rebound or guarding. Normal active bowel sounds. Neurological examination awake, alert, oriented. No noted pedal edema. Const Vital Signs: 04/24/23 08:24 04/24/23 11:38 Temperature 96.8 F L Temperature Source Temporal Pulse Rate 130 H 76 Respiratory Rate 16 14 Blood Pressure 112/33 L 110/55 L Blood Pressure Mean 59 73 Pulse Ox 100 96 Oxygen Delivery Method Room Air MDM MDM MDM Narrative Medical decision making narrative: In the differential diagnosis for her left lower quadrant pain would be ureterolithiasis versus diverticulitis versus nonspecific abdominal pain. With her nausea and vomiting, she may also have a pancreatitis. Although she states that she supposed to have a CT scan on Tuesday, I feel she needs a more emergent CT scan given her nausea and vomiting and constant left lower quadrant abdominal pain. Also in the differential diagnosis would be diverticular abscess, but she is not febrile and she is not exhibiting exquisite tenderness in that area. I reviewed her laboratory work and she has slight elevation in her white count of 11.2 with hemoglobin slightly hemoconcentrated at 16.4, hematocrit 49.7. Platelet count normal at 253. Sodium slightly low 135 with a BUN of 22 and a creatinine of 1.36. She was bolused normal saline 1 L intravenously. Glucose is elevated at 167 but she has a normal anion gap of 5. Urinalysis is negative for infection. I do not feel antibiotics are indicated for this. I reviewed the CT imaging and the radiology report of the CT of the abdomen and pelvis without oral contrast but with IV contrast. There is evidence of bowel obstruction but no clear transition point.'s most likely from adhesions as she has had cholecystectomy and appendectomy. Additionally, she was thought to have mild diverticulitis as she has thickening of the colonic wall. At this point in time, as recommended by the radiology report, I discussed the patient with Dr. Thomas Menjivar with general surgery. NG will be placed and KUB obtained afterwards. I will also add a lactic acid as well. I do feel that she requires admission given her bowel obstruction and diverticulitis. She will be started on Cipro and Flagyl as well. Disposition is admit in stable condition. NG tube was inserted, and my interpretation of her initial KUB shows that it needs advancement. I reviewed the radiology report which confirms my independent interpretation. RN did advance the tube, and KUB was obtained, and on my individual interpretation, it still needs further advancement. However, patient had coughed out the NG tube. It will be replaced and KUB ordered again. Dr. Menjivar did request that medicine be consulted. I discussed patient with Dr. Ty and he will see the patient in consult on the general medical floor. Patient is in stable condition. History & Record Review Discussion w/independent historian: Patient Additional record(s) reviewed:: Prior ED visit and Prior labs Lab Data Attestation: I reviewed the patient's lab results. Labs: Laboratory Results - last 24 hr 04/24/23 04/24/23 04/24/23 09:05 10:20 11:20 WBC 11.2 H RBC 4.78 Hgb 16.4 H Hct 49.7 H MCV 104.0 H MCH 34.3 H MCHC 33.0 RDW Std Deviation 46.5 H RDW Coeff of Alvin 11.9 Plt Count 253 MPV 9.8 Immature Gran % (Auto) 0.300 Neut % (Auto) 76.5 H Lymph % (Auto) 13.3 L [place] % (Auto) 9.0 Eos % (Auto) 0.3 Baso % (Auto) 0.6 Absolute Neuts (auto) 8.6 H Absolute Lymphs (auto) 1.49 Nucleated RBC % 0 Sodium 135 L Potassium 4.2 Chloride 103 Carbon Dioxide 27.0 Anion Gap 5 BUN 22 H Creatinine 1.36 H Estim Creat Clear Calc 26.97 Est GFR (MDRD) Af Amer 49 L Est GFR (MDRD) Non-Af 40 L BUN/Creatinine Ratio 16.2 Glucose 167 H Lactic Acid 1.2 Calcium 9.5 Total Bilirubin 1.60 H AST 31 ALT 40 Alkaline Phosphatase 70 Total Protein 6.8 Albumin 3.4 Globulin 3.4 Albumin/Globulin Ratio 1.0 Lipase 34 Urine Color Straw Urine Clarity Clear Urine pH 7.0 Ur Specific [place] 1.010 Urine Protein 30 H Urine Glucose (UA) Normal Urine Ketones 5 H Urine Occult Blood 10 H Urine Nitrite Negative Urine Bilirubin Negative Urine Urobilinogen Normal Ur Leukocyte Esterase 25 H Urine RBC 0 SEEN Urine WBC 0 SEEN Ur Squamous Epith Cells 0 SEEN Urine Bacteria 0 SEEN Urine Mucus 0 SEEN Radiography Diagnostic Testing: Clinical Impression(s) from Imaging Studies Abdomen/Pelvis CT 04/24/23 08:56 IMPRESSION: Abnormally distended fluid-filled small bowel loops throughout the abdomen consistent with obstruction. Surgical consultation recommended, most likely cause is from adhesions from previous surgery as both the gallbladder and appendix are nonvisualized and likely surgically absent. Sigmoid diverticulosis with some mucosal thickening of the sigmoid findings suggest acute sigmoid diverticulitis without perforation or abscess Simple renal cysts, no specific follow-up needed Small amount of fluid around the periphery of the spleen Uterus is present with low-density fluid apparently present in the endometrium, dedicated pelvic ultrasound recommended for further evaluation Degenerative bony changes Electronically Signed: Mathew Angel MD at 10:26 EST , KUB X-Ray 04/24/23 11:03 IMPRESSION: NG tube tip just past the GE junction Small bowel ileus Electronically Signed: Mathew Angel MD at 13:03 EST , Management Discussion w/another healthcare provider: [employer] (Dr. Thomas Menjivar, general surgery) Discharge Plan Triage Chief Complaint: Abd Pain ED Provider: Reodica,Antonio Dx/Rx/DC Orders Primary Care Provider: Florin Aragon
[2023-04-24] MEDS: 0.9% Normal Saline (1000mL) 1,000 ML 1000 ML IV (09:06)
[2023-04-24] MEDS: Ondansetron 4 MG/2 ML Vial IV ×2 (09:08→18:28)
[2023-04-24] MEDS: Morphine 4 MG/ML Syringe IV (09:10)
[2023-04-24 09:13] LABS: Absolute Lymphocyte Count 1.49 X10^3/uL (0.83-4.51); Absolute Neutrophil Count 8.6 X10^3/uL (2.0-7.7); Basophil# 0.07 X10^3/uL; Basophil% 0.6 % (0-1); Eosinophil# 0.03 X10^3/uL; Eosinophils% 0.3 % (0-5); Hematocrit 49.7 % (37-47); Hemoglobin 16.4 g/dL (12.0-15.0); Lymphocyte # 1.49 X10^3/ul (0.83-4.51); Lymphocyte % 13.3 % (19-41); Mean Corpuscular Hgb 34.3 pg (27.0-32.0); Mean Platelet Vol. 9.8 fl (6.2-12.0); Monocyte# 1.01 X10^3/uL; NRBC Flagged by Analyzer 0 % (0-5); Neutrophil # 8.59 X10^3/uL (2.7-7.7); Neutrophil % 76.5 % (47-70); Platelet Count 253 K/mm3 (150-450); RBC Distribution Width CV 11.9 % (11.6-14.6); RBC Distribution Width SD 46.5 fl (35.1-43.9); Red Blood Count 4.78 M/mm3 (4.2-5.4); White Blood Count 11.2 K/mm3 (4.4-11.0)
[2023-04-24 09:31] LABS: AST(SGOT) 31 U/L (15-37); Alanine Aminotransfer ALT/SGPT 40 U/L (13-56); Albumin, Serum 3.4 g/dL (3.2-5.0); Alkaline Phosphatase 70 U/L (45-117); Anion Gap 5 (5-15); BUN 22 mg/dL (7-18); BUN/Creat Ratio 16.2 RATIO (10-20); Calcium,Total 9.5 mg/dL (8.5-10.1); Chloride 103 mmol/L (98-107); Creatinine, Serum 1.36 mg/dL (0.55-1.02); EST Glomerular Filtration Rate 40 mL/min (>60); Est Glom Filt Rate - Afr Amer 49 mL/min (>60); Estimated Creatinine Clearance 26.97 ml/min; Globulin 3.4 g/dL (2.2-4.2); Glucose 167 mg/dL (74-106); Lipase 34 U/L (13-75); Potassium 4.2 mmol/L (3.5-5.1); Protein, Total 6.8 g/dL (6.4-8.2); Sodium Level 135 mmol/L (136-145)
[2023-04-24 10:26] LABS: Bacteria 0 SEEN /hpf (None Seen); Mucous, Urine 0 SEEN /hpf (<or=2+); Red Blood Cells-Urine 0 SEEN /hpf (0-5); Squamous Epithelial Cells - UA 0 SEEN /hpf (5-10); White Blood Cells 0 SEEN /hpf (0-5)
[2023-04-24 10:27] LABS: Color, Urine Straw (Yellow); Glucose, Dipstick Normal (Normal); Ketone-Dipstick 5 mg/dl (Negative); Leukocyte Esterase-Dipstick 25 /ul (Negative); Nitrite-Dipstick Negative (Negative); Occult Blood-Urine 10 /ul (Negative); Protein-Dipstick 30 mg/dl (Negative); Urine Bilirubin Dipstick Negative (Negative); Urine Clarity Clear (Clear); Urine Urobilinogen Normal (Normal)
--- NOTE | 2023-04-24 11:03 | RAD_ITS ---
STUDY: X-RAY - ABDOMEN/PELVIS REASON FOR EXAM: Female, 77 years old. NG tube placement -- KUB with both diaphragms for NG/OG Verification TECHNIQUE: Single AP view of the abdomen / pelvis. COMPARISON: None. FINDINGS: Chronic interstitial changes noted in the lung bases. NG tube tip just past the GE junction There is a paralytic ileus of the small intestine with mild gaseous distention. There is no demonstrated free abdominal air. The visualized liver, spleen and kidneys are grossly normal in size and morphology. Normal soft tissue structures. Normal visualized osseous structures. IV contrast noted within the collecting systems. RAD/Abdomen Single View (Portable) IMPRESSION: NG tube tip just past the GE junction Small bowel ileus Electronically Signed: Mathew Angel MD at 13:03 EST ,
[2023-04-24] MEDS: Oxymetazoline 0.05% 1 SPRAY SPRAY.BTL 2 SPRAY NASAL (11:35)
[2023-04-24] MEDS: Lidocaine Jelly 2% 20 ML Syringe (URO-JET) 1 APPLIC TOPICAL (11:35)
[2023-04-24] MEDS: metroNIDAZOLE 500 MG/100 ML BAG 100 MG IV (11:36)
[2023-04-24 11:54] LABS: Lactic Acid 1.2 mmol/L (0.4-1.9)
--- NOTE | 2023-04-24 12:15 | HP.PCM_ITS ---
[facility] - [facility] Date of Service: 04/24/23 Chief Complaint: Acute onset abdominal pain with associated nausea and vomiting [facility] Narrative CRISTINO VERDUGO, is a 77 F who presents to [facility] with complaints of acute onset left lower quadrant pain and associated nausea and vomiting beginning 48 hours ago. Actually she relates that she has been under evaluation for some more chronic left lower quadrant pain that has been going on at least the last 2 weeks. She notes an acute intensification of the symptoms and the addition of nausea and vomiting 48 hours ago. She shares that initially her vomitus was the food stuff that she had recently ingested but has become more bilious in character. She reports that her pain was initially located in the left groin area and then migrated superiorly and medially to about the level of her umbilicus. She also notes that the pain intensity seemed to decrease yesterday and then reintensified today. Lastly, patient notes that she had what felt to be a bulge in her left groin that seems improved at present. Patient's ER workup is notable for evidence of hemoconcentration with a hemogl obin of 16.4 and leukocytosis of 11.2. CT imaging of the abdomen pelvis was performed and radiology identified multiple possible sources of patient's symptoms including some distention of her small bowel with air-fluid levels, fluid within a left inguinal hernia, and mural thickening of the sigmoid colon potentially representing mild diverticulitis. Patient's past medical history includes a history of hypertension, hyperlipidemia, CVA (though patient denies any persistent deficit), and NSTEMI in June 2022. Regarding the latter, patient underwent drug-eluting stent placement to the right circumflex coronary in June and has remained on dual antiplatelet therapy with Plavix ever since. She shares that her last administration of Plavix was at least 48 hours ago if not more like 72 hours ago. She denies any recent chest pain or shortness of breath. Mrs. Mehdi Verdugo reports a colonoscopy [address] Mas and was advised she would not likely require another scope in her lifetime. Outside of this reports she is unable to provide detail. From a surgical standpoint patient has a history of appendectomy, cholecystectomy, oophorectomy, and?remotely?hernia repair as a child. [facility] Medical History (Updated 04/24/23 @ 12:[address] Thomas Menjivar MD) Essential hypertension History of CVA (cerebrovascular accident) History of hypertension Non-STEMI (non-ST elevated myocardial infarction) Home Medications estradiol 0.01% (0.1 mg/gram) vaginal cream (Estrace) 1 dose vaginal UD HORMONES 02/11/14 [History Last Taken Unknown] budesonide 3 mg capsule,delayed,extended release 9 mg PO DAILY COLITIS 07/11/22 [History Last Taken 07/11/22] calcium carbonate 600 mg-vitamin D3 5 mcg (200 unit) tablet 1 tab PO DAILY SUPPLEMENT 07/11/22 [History Last Taken 07/11/22] coenzyme Q10 50 mg tablet 50 mg PO DAILY SUPPLEMENT 07/11/22 [History Last Taken 07/10/22] cyanocobalamin (vitamin B-12) 1,000 mcg tablet (Vitamin B-12) 1,000 mcg PO DAILY PRN Nausea 07/11/22 [History Last Taken Unknown] diclofenac sodium 1 % topical gel 1 ea topical 4X/DAY PAIN 07/11/22 [History L ast Taken 07/10/22] dicyclomine 20 mg tablet 20 mg PO TID IRRITABLE BOWELS 07/11/22 [History Last Ta gunjan 07/10/22] escitalopram oxalate 5 mg tablet 5 mg PO DAILY SUPPER 07/11/22 [History Last Taken 07/10/22] ipratropium bromide 21 mcg (0.03 %) nasal spray 2 spray intranasal Q6H PRN CONGESTION/COUGH 07/11/22 [History Last Taken Unknown] levothyroxine 50 mcg tablet 50 mcg PO DAILY THYROID 07/11/22 [History Last Taken 07/11/22] melatonin 10 mg tablet 10 mg PO QHS PRN Sleep 07/11/22 [History Last Taken Unknown] mirtazapine 7.5 mg tablet 7.5 mg PO QHS PRN DEPRESSION/ANXIETY 07/11/22 [History Last Taken Unknown] multivitamin 1 tab PO DAILY HEALTH MAINTENANCE 07/11/22 [History Last Taken 07/10/22] rosuvastatin 10 mg tablet 10 mg PO QHS CHOLESTEROL 07/11/22 [History Last Taken 07/09/22] thiamine HCl (vitamin B1) 100 mg tablet 100 mg PO BIDCM SUPPLEMENT 07/11/22 [History Last Taken 07/10/22] triamcinolone acetonide 0.1 % topical cream 1 applic topical BID PRN Skin Irritation 07/11/22 [History Last Taken Unknown] vitamin B complex 1 tab PO DAILY SUPPLEMENT 07/11/22 [History Last Taken 07/10/22] aspirin 81 mg tablet,delayed release 81 mg PO BREAKFAST 30 days #30 tabs 07/13/22 [Rx Last Taken Unknown] clopidogrel 75 mg tablet 75 mg PO DAILY #90 tabs 08/09/22 [Rx Last Taken Unknown] metoprolol tartrate 25 mg tablet 12.5 mg (1/2 x 25 mg) PO BID #90 tabs 08/09/22 [Rx Last Taken Unknown] naltrexone 50 mg tablet 50 mg PO DAILY 08/09/22 [History Last Taken Unknown] irbesartan 75 mg tablet 75 mg PO DAILY Blood Pressure #90 tabs 11/02/22 [Rx Last Taken Unknown] Allergy/AdvReac Type Severity Reaction Status Date / Time Penicillins Allergy Unknown Verified 11/02/22 13:48 sulfamethoxazole Allergy Hives Verified 11/02/22 13:48 [From Bactrim] trimethoprim [From Bactrim] Allergy Hives Verified 11/02/22 13:48 Family History Father Myocardial infarction by [place]-60s CHF (congestive heart failure) Mother Chest pain Uncle Diabetes Surgical History (Updated 04/24/23 @ 09:13 by Peace Rivera RN) History of coronary artery stent placement (07/12/22) Hx laparoscopic cholecystectomy Social History Smoking Status: Former smoker Vital Signs Vital Signs Vital Signs: 04/24/23 08:24 04/24/23 11:38 Temperature 96.8 F L Temperature Source Temporal Pulse Rate 130 H 76 Respiratory Rate 16 14 Blood Pressure 112/33 L 110/55 L Blood Pressure Mean 59 73 Pulse Ox 100 96 Oxygen Delivery Method Room Air Weight Weight: 131 lb 4.8 oz Body Mass Index (BMI) 24.7 Physical Exam Const alert and oriented x3 Constitutional Narrative: Mild distress from recently placed nasogastric tube General Appearance: cooperative Resp normal respiratory effort GI GI Narrative: Mildly distended, soft, mild tenderness to palpation over patient's left inguinal region and right mid abdomen. Nasogastric tube is in place in right nare but draining only a small amount of serous fluid. Results Lab / Micro Data 04/24/23 09:05 04/24/23 09:05 Labs: Laboratory Results - last 24 hr 04/24/23 09:05: WBC 11.2 H, RBC 4.78, Hgb 16.4 H, Hct 49.7 H, MCV 104.0 H, MCH 34.3 H, MCHC 33.0, RDW Std Deviation 46.5 H, RDW Coeff of Alvin 11.9, Plt Count 253, MPV 9.8, Immature Gran % (Auto) 0.300, Neut % (Auto) 76.5 H, Lymph % (Auto) 13.3 L, [place] % (Auto) 9.0, Eos % (Auto) 0.3, Baso % (Auto) 0.6, Absolute Neuts (auto) 8.6 H, Absolute Lymphs (auto) 1.49, Nucleated RBC % 0, Sodium 135 L, Potassium 4.2, Chloride 103, Carbon Dioxide 27.0, Anion Gap 5, BUN 22 H, Creatinine 1.36 H, Estim Creat Clear Calc 26.97, Est GFR (MDRD) Af Amer 49 L, Est GFR (MDRD) Non-Af 40 L, BUN/Creatinine Ratio 16.2, Glucose 167 H, Calcium 9.5, Total Bilirubin 1.60 H, AST 31, ALT 40, Alkaline Phosphatase 70, Total Protein 6.8, Albumin 3.4, Globulin 3.4, Albumin/Globulin Ratio 1.0, Lipase 34 04/24/23 10:20: Urine Color Straw, Urine Clarity Clear, Urine pH 7.0, Ur Specific [place] 1.010, Urine Protein 30 H, Urine Glucose (UA) Normal, Urine Ketones 5 H, Urine Occult Blood 10 H, Urine Nitrite Negative, Urine Bilirubin Negative, Urine Urobilinogen Normal, Ur Leukocyte Esterase 25 H, Urine RBC 0 SEEN, Urine WBC 0 SEEN, Ur Squamous Epith Cells 0 SEEN, Urine Bacteria 0 SEEN, Urine Mucus 0 SEEN 04/24/23 11:20: Lactic Acid 1.2 Imagaing Radiology Impression Abdomen/Pelvis CT 04/24/23 08:56 IMPRESSION: Abnormally distended fluid-filled small bowel loops throughout the abdomen consistent with obstruction. Surgical consultation recommended, most likely cause is from adhesions from previous surgery as both the gallbladder and appendix are nonvisualized and likely surgically absent. Sigmoid diverticulosis with some mucosal thickening of the sigmoid findings suggest acute sigmoid diverticulitis without perforation or abscess Simple renal cysts, no specific follow-up needed Small amount of fluid around the periphery of the spleen Uterus is present with low-density fluid apparently present in the endometrium, dedicated pelvic ultrasound recommended for further evaluation Degenerative bony changes Electronically Signed: Mathew Angel MD at 10:26 EST Reading Location ID and State: [address] [place] [address] , Service support , Assessment & Plan Assessment/Plan (1) Small bowel obstruction: (2) Left inguinal hernia: (3) Mural thickening of sigmoid colon: PLAN: Plan Patient is a 77-year-old female with a presentation for acute onset left lower quadrant pain (that became migratory towards a superior medial course) and associated nausea and vomiting. Her workup suggests multiple etiologies for her symptoms including a small bowel obstruction secondary to adhesions versus a small bowel obstruction secondary to a recently incarcerated left inguinal hernia versus 1 or more of the above with concurrent mild diverticulitis. Based on patient's history and exam I suspect she most likely had a transiently incarcerated left inguinal hernia and has persistent evidence of a small bowel obstruction. With this impression, I have recommended placement of nasogastric tube and this was performed by emergency medicine. Tube is yet to be confirmed for its position. Given patient's history of a EDITH PCI in the last 12 months, I reached out to Dr. Landers of cardiology to confirm that patient would be okay to hold her Plavix during her ensuing inpatient workup and was assured that this was acceptable. On reaching this confirmation I agreed to admit patient with hospitalist consultation. Given patient's rather benign abdominal exam I would like to proceed with conservative measures upfront, but based on her CT imaging do believe she is at risk for requiring a surgery to resolve this issue definitively. And in the event that she is able to resolve the obstructive problem this admission, patient would be recommended left inguinal hernia repair to mitigate her risk for future events. Neuro: As needed Dilaudid Pulm/CV: Incentive spirometer, management of cardiac meds per hospitalist service, hold Plavix, okay to continue aspirin, telemetry FEN/GI: Daily electrolytes, IV fluid resuscitation given evidence of hemoconcen tration, nasogastric tube to low intermittent wall suction and maintain patency of the stump, prophylactic Protonix : No present issues, but patient does communicate she had a recent UTI Heme/ID: Trend CBC with differential, at this time not inclined to proceed with IV antibiotic management of diverticulitis given patient's exam Endo: No current issues Proph: Isabelle Dispo: Admit inpatient
--- NOTE | 2023-04-24 12:48 | RAD_ITS ---
STUDY: X-RAY - ABDOMEN/PELVIS REASON FOR EXAM: Female, 77 years old. NG tube placement. TECHNIQUE: Single AP view of the abdomen / pelvis. COMPARISON: 04/24/2023 at 12:39 PM FINDINGS: There is an enteric tube noted with its tip in the proximal stomach. However, the side-port is at the GE junction. This should be advanced 10 cm for improved positioning. There are stable dilated loops of bowel in the upper abdomen. The visualized osseous structures are within normal limits. RAD/Abdomen Single View (Portable) IMPRESSION: Enteric tube tip in the proximal stomach but the side port is at the GE junction. This should be advanced 10 cm for improved positioning. Electronically Signed: Jose Junior MD at 13:44 EST ,
[2023-04-24] MEDS: Ciprofloxacin 400 MG/200 ML BAG 200 MG IV (13:15)
--- NOTE | 2023-04-24 13:37 | RAD_ITS ---
EXAM: XR ABDOMEN, 1 VIEW CLINICAL INDICATION: NG placement TECHNIQUE: Frontal supine view of the abdomen/pelvis. COMPARISON: Study done earlier today. FINDINGS: LOWER THORAX: No acute pathology. GASTROINTESTINAL TRACT: Unremarkable. Non-obstructive. No bowel or stomach distention. ORGANS: Unremarkable as visualized. No organomegaly. No abnormal calcifications. BONES/JOINTS: Degenerative findings in the spine. SOFT TISSUES: No acute pathology. VASCULATURE: There are atherosclerotic vascular calcifications. TUBES, LINES AND DEVICES: There is a feeding tube/ nasogastric tube noted. The tip is in the region of the stomach. RAD/Abdomen Single View (Portable) IMPRESSION: There is a feeding tube/ nasogastric tube noted. The tip is in the region of the stomach. Electronically Signed: Manish Henderson MD at 15:45 EST Reading Location ID and State: [facility] / [place] , Service support ,
[2023-04-24] MEDS: 0.9% Normal Saline (1000mL) 1,000 ML 125 ML IV ×2 (15:50→23:35)
--- NOTE | 2023-04-24 16:15 | PN.HOSP_ITS ---
Reason for Visit Reason for Visit: Diagnoses Unilateral inguinal hernia, without obstruction or gangrene, not specified as r ecurrent (04/24/23) Unspecified intestinal obstruction, unspecified as to partial versus complete ob struction (04/24/23) Disease of intestine, unspecified (04/24/23) Subjective Subjective She was seen and examined at the request of general surgery, she was admitted today for abdominal pain and was felt to have a small bowel obstruction, chronic medical problems include hypertension, coronary artery disease, and chronic depression. Objective Data Objective Data Vital Signs: Vital Signs Temp Pulse Resp BP Pulse Ox O2 Del Method 98.3 F 94 16 131/56 H 95 Room Air 04/24/23 15:55 04/24/23 15:55 04/24/23 15:55 04/24/23 15:55 04/24/23 15:55 04/24/23 15:55 Oxygen Delivery Method Room Air Weight: 59.557 kg Body Mass Index (BMI) 24.7 Intake & Output: Intake and Output for Last 24 Hours 04/22/23 04/23/23 04/24/23 23:59 23:59 23:59 Intake Total 1300 / 1300 Output Total 100 / 100 Balance 1200 / 1200 Lab / Micro Data 04/24/23 09:05 04/24/23 09:05 Labs: Laboratory Results - last 24 hr 04/24/23 09:05: WBC 11.2 H, RBC 4.78, Hgb 16.4 H, Hct 49.7 H, MCV 104.0 H, MCH 34.3 H, MCHC 33.0, RDW Std Deviation 46.5 H, RDW Coeff of Alvin 11.9, Plt Count 253, MPV 9.8, Immature Gran % (Auto) 0.300, Neut % (Auto) 76.5 H, Lymph % (Auto) 13.3 L, [place] % (Auto) 9.0, Eos % (Auto) 0.3, Baso % (Auto) 0.6, Absolute Neuts (auto) 8.6 H, Absolute Lymphs (auto) 1.49, Nucleated RBC % 0, Sodium 135 L, Potassium 4.2, Chloride 103, Carbon Dioxide 27.0, Anion Gap 5, BUN 22 H, Creatinine 1.36 H, Estim Creat Clear Calc 26.97, Est GFR (MDRD) Af Amer 49 L, Est GFR (MDRD) Non-Af 40 L, BUN/Creatinine Ratio 16.2, Glucose 167 H, Calcium 9.5, Total Bilirubin 1.60 H, AST 31, ALT 40, Alkaline Phosphatase 70, Total Protein 6.8, Albumin 3.4, Globulin 3.4, Albumin/Globulin Ratio 1.0, Lipase 34 04/24/23 10:20: Urine Color Straw, Urine Clarity Clear, Urine pH 7.0, Ur Specific [place] 1.010, Urine Protein 30 H, Urine Glucose (UA) Normal, Urine Ket ones 5 H, Urine Occult Blood 10 H, Urine Nitrite Negative, Urine Bilirubin Negative, Urine Urobilinogen Normal, Ur Leukocyte Esterase 25 H, Urine RBC 0 SEEN, Urine WBC 0 SEEN, Ur Squamous Epith Cells 0 SEEN, Urine Bacteria 0 SEEN, Urine Mucus 0 SEEN 04/24/23 11:20: Lactic Acid 1.2 Radiography Diagnostic Testing: Radiology Impression Abdomen/Pelvis CT 04/24/23 08:56 IMPRESSION: Abnormally distended fluid-filled small bowel loops throughout the abdomen consistent with obstruction. Surgical consultation recommended, most likely cause is from adhesions from previous surgery as both the gallbladder and appendix are nonvisualized and likely surgically absent. Sigmoid diverticulosis with some mucosal thickening of the sigmoid findings suggest acute sigmoid diverticulitis without perforation or abscess Simple renal cysts, no specific follow-up needed Small amount of fluid around the periphery of the spleen Uterus is present with low-density fluid apparently present in the endometrium, dedicated pelvic ultrasound recommended for further evaluation Degenerative bony changes Electronically Signed: Mathew Angel MD at 10:26 EST , KUB X-Ray 04/24/23 11:03 IMPRESSION: NG tube tip just past the GE junction Small bowel ileus Electronically Signed: Mathew Angel MD at 13:03 EST , KUB X-Ray 04/24/23 12:48 IMPRESSION: Enteric tube tip in the proximal stomach but the side port is at the GE junction. This should be advanced 10 cm for improved positioning. Electronically Signed: Jose Junior MD at 13:44 EST , ADDENDUM: 04/24/23 1358 IMPRESSION: Enteric tube tip in the proximal stomach but the side port is at the GE junction. This should be advanced 10 cm for improved positioning. N.B. : The above information has been verbally conveyed by Jose Junior MD to TEN Keller, on 04/24/2023 13:51:33 (ET). Electronically Signed: Jose Junior MD at 13:44 EST , KUB X-Ray 04/24/23 13:37 IMPRESSION: There is a feeding tube/ nasogastric tube noted. The tip is in the region of the stomach. Electronically Signed: Manish Henderson MD at 15:45 EST , Physical Exam Const alert, oriented x3, no apparent distress and average body habitus General Appearance: cooperative, well kempt and well developed Orientation / Consciousness: awake, oriented to person, oriented to place and oriented to time HEENT normocephalic, head/scalp atraumatic and moist oral mucous membranes Eyes PERRL, EOMs intact bilaterally and conjunctivae normal Neck supple, no JVD, thyroid normal and no carotid bruits General: trachea midline Resp normal respiratory effort, no retractions, no use of accessory muscles and clear to auscultation bilaterally Auscultation: Negative for rales, rhonchi or wheezes Cardio regular rate, regular rhythm, no murmurs, no rub and no gallops GI soft to palpation GI Narrative: Patient has some generalized abdominal distention, abdomen is tympanic, bowel sounds are high-pitched but are present. Extremity no clubbing, cyanosis or edema Skin no rashes or lesions noted General Skin Exam: no breakdown Neuro oriented x3, CN's II-XII intact bilaterally, moves all extremities, no focal motor deficits and no sensory deficits noted Sensorium / Orientation: awake and alert Speech: speech normal Psych affect normal Assessment & Plan Assessment/Plan (1) Small bowel obstruction: PLAN: Plan 1. Atherosclerotic heart disease-patient is currently taking aspirin and Plavix, I talked informally with Dr. Najera who placed the patient's EDITH in June of this year, he states that the patient may be taken off aspirin and Plavix for 5 days without harm, he states that if he had a decision to use 1 antiplatelet drug that would be less likely to cause bleeding it would be aspirin over Plavix. He says that his aspirin and Plavix can be restarted 2 days after surgery without incident usually. For now I will keep the patient off aspirin and Plavix #2 essential hypertension-patient is on an ARB at home, I will place her on IV Vasotec for blood pressure control #3 chronic depression-since patient is n.p.o., her antidepressant will be held- she is taking Lexapro #4 hyperlipidemia-patient is on Crestor, her statin can be held at the present time #5 hypothyroidism-patient is on Synthroid, I will convert this to IV #6 small bowel obstruction-defer to surgery for treatment of this Total clinical time spent by myself addressing the patient's medical issues, reviewing all of her data, and collaborating with patient's care team: 35 minutes Charges/Coding Visit Charges Inpatient E&M: 78085 Subs Hosp L2
[2023-04-24] MEDS: Enalaprilat 1.25 MG/ML Vial 0.625 MG IV (18:22)
[2023-04-24] MEDS: HYDROmorphone 0.5 MG/0.5 ML SYRINGE IV (18:28)
[2023-04-24] MEDS: proMETHazine 25 MG/ML Syringe IM (23:30)
[2023-04-24] MEDS: 0.9% Saline Lock 10 ML Syringe IV (23:35)
[2023-04-25] VITALS: BP 102/37; PULSE 81
[2023-04-25 04:53] LABS: Absolute Lymphocyte Count 1.74 X10^3/uL (0.83-4.51); Absolute Neutrophil Count 7.5 X10^3/uL (2.0-7.7); Basophil# 0.09 X10^3/uL; Basophil% 0.9 % (0-1); Eosinophil# 0.09 X10^3/uL; Eosinophils% 0.9 % (0-5); Hematocrit 40.2 % (37-47); Hemoglobin 12.7 g/dL (12.0-15.0); Lymphocyte # 1.74 X10^3/ul (0.83-4.51); Lymphocyte % 16.8 % (19-41); Mean Corp Hgb Conc 31.6 g/dL (32-36); Mean Corpuscular Hgb 34.4 pg (27.0-32.0); Mean Corpuscular Volume 108.9 fL (81-99); Monocyte# 0.91 X10^3/uL; Monocyte% 8.8 % (0-10); NRBC Flagged by Analyzer 0 % (0-5); Neutrophil % 72.1 % (47-70); Platelet Count 162 K/mm3 (150-450); RBC Distribution Width SD 49.1 fl (35.1-43.9); Red Blood Count 3.69 M/mm3 (4.2-5.4); White Blood Count 10.4 K/mm3 (4.4-11.0)
[2023-04-25 05:26] VITALS: BP 100/41; PULSE 81; RESP 18; TEMP 36.9; O2SAT 97
[2023-04-25 05:37] LABS: Anion Gap 5 (5-15); BUN 25 mg/dL (7-18); BUN/Creat Ratio 20.8 RATIO (10-20); Calcium,Total 7.7 mg/dL (8.5-10.1); Chloride 113 mmol/L (98-107); EST Glomerular Filtration Rate 46 mL/min (>60); Est Glom Filt Rate - Afr Amer 56 mL/min (>60); Estimated Creatinine Clearance 30.57 ml/min; Glucose 129 mg/dL (74-106); Phosphorus 3.4 mg/dL (2.5-4.9); Potassium 3.9 mmol/L (3.5-5.1); Sodium Level 141 mmol/L (136-145)
[2023-04-25] MEDS: 0.9% Normal Saline (1000mL) 1,000 ML 125 ML IV ×2 (07:50→17:20)
--- NOTE | 2023-04-25 07:56 | PN.HOSP_ITS ---
Reason for Visit Reason for Visit: Diagnoses Unilateral inguinal hernia, without obstruction or gangrene, not specified as r ecurrent (04/24/23) Unspecified intestinal obstruction, unspecified as to partial versus complete ob struction (04/24/23) Disease of intestine, unspecified (04/24/23) Subjective Subjective Patient admitted yesterday afternoon by general surgery for concern for small bowel obstruction, medicine consulted for medical management. Patient had NG tube placed in the ED but per surgery, unfortunately coughed out to different t ubes when nursing attempted to advance him further. Patient seen at bedside this morning. NG tube in place when I saw the patient. However, patient states that she had several loose bowel movements overnight and this morning. She did have 1 episode of vomiting yesterday evening but has not had any further episodes since then. Patient states her abdominal discomfort is much improved this morning. She is mainly distressed by the number of bowel movements she has had over the last several hours, especially since she has been instructed to ask for nursing assistance when going to the bathroom. Patient notes she does have a history of IBS with diarrhea, but this is worse than her baseline. She otherwise denies any fevers or chills, chest pain, shortness of breath. No other acute concerns this time. Objective Data Objective Data Vital Signs: Vital Signs Temp Pulse Resp BP Pulse Ox O2 Del Method 98.4 F 81 18 100/41 L 97 Room Air 04/25/23 05:26 04/25/23 05:26 04/25/23 05:26 04/25/23 05:26 04/25/23 05:26 04/25/23 05:26 Oxygen Delivery Method Room Air Weight: 59.557 kg Body Mass Index (BMI) 24.7 Intake & Output: Intake and Output for Last 24 Hours 04/23/23 04/24/23 04/25/23 23:59 23:59 23:59 Intake Total 2268.75 / 2268.75 1000 / 1000 Output Total 100 / 100 Balance 2168.75 / 2168.75 1000 / 1000 Lab / Micro Data 04/25/23 04:45 04/25/23 04:45 Labs: Laboratory Results - last 24 hr 04/24/23 09:05: WBC 11.2 H, RBC 4.78, Hgb 16.4 H, Hct 49.7 H, MCV 104.0 H, MCH 34.3 H, MCHC 33.0, RDW Std Deviation 46.5 H, RDW Coeff of Alvin 11.9, Plt Count 253, MPV 9.8, Immature Gran % (Auto) 0.300, Neut % (Auto) 76.5 H, Lymph % (Auto) 13.3 L, [place] % (Auto) 9.0, Eos % (Auto) 0.3, Baso % (Auto) 0.6, Absolute Neuts (auto) 8.6 H, Absolute Lymphs (auto) 1.49, Nucleated RBC % 0, Sodium 135 L, Potassium 4.2, Chloride 103, Carbon Dioxide 27.0, Anion Gap 5, BUN 22 H, Creatinine 1.36 H, Estim Creat Clear Calc 26.97, Est GFR (MDRD) Af Amer 49 L, Est GFR (MDRD) Non-Af 40 L, BUN/Creatinine Ratio 16.2, Glucose 167 H, Calcium 9.5, Total Bilirubin 1.60 H, AST 31, ALT 40, Alkaline Phosphatase 70, Total Protein 6.8, Albumin 3.4, Globulin 3.4, Albumin/Globulin Ratio 1.0, Lipase 34 04/24/23 10:20: Urine Color Straw, Urine Clarity Clear, Urine pH 7.0, Ur Specific [place] 1.010, Urine Protein 30 H, Urine Glucose (UA) Normal, Urine Ketones 5 H, Urine Occult Blood 10 H, Urine Nitrite Negative, Urine Bilirubin Negative, Urine Urobilinogen Normal, Ur Leukocyte Esterase 25 H, Urine RBC 0 SEEN, Urine WBC 0 SEEN, Ur Squamous Epith Cells 0 SEEN, Urine Bacteria 0 SEEN, Urine Mucus 0 SEEN 04/24/23 11:20: Lactic Acid 1.2 04/25/23 04:45: WBC 10.4, RBC 3.69 L, Hgb 12.7, Hct 40.2, MCV 108.9 H, MCH 34.4 H, MCHC 31.6 L, RDW Std Deviation 49.1 H, RDW Coeff of Alvin 12.0, Plt Count 162, MPV 10.0, Immature Gran % (Auto) 0.500, Neut % (Auto) 72.1 H, Lymph % (Auto) 16.8 L, [place] % (Auto) 8.8, Eos % (Auto) 0.9, Baso % (Auto) 0.9, Absolute Neuts (auto) 7.5, Absolute Lymphs (auto) 1.74, Nucleated RBC % 0, Sodium 141, Potassium 3.9, Chloride 113 H, Carbon Dioxide 23.0, Anion Gap 5, BUN 25 H, Creatinine 1.20 H, Estim Creat Clear Calc 30.57, Est GFR (MDRD) Af Amer 56 L, Est GFR (MDRD) Non-Af 46 L, BUN/Creatinine Ratio 20.8 H, Glucose 129 H, Calcium 7.7 L, Phosphorus 3.4, Magnesium 2.0 Radiography Diagnostic Testing: Radiology Impression Abdomen/Pelvis CT 04/24/23 08:56 IMPRESSION: Abnormally distended fluid-filled small bowel loops throughout the abdomen consistent with obstruction. Surgical consultation recommended, most likely cause is from adhesions from previous surgery as both the gallbladder and appendix are nonvisualized and likely surgically absent. Sigmoid diverticulosis with some mucosal thickening of the sigmoid findings suggest acute sigmoid diverticulitis without perforation or abscess Simple renal cysts, no specific follow-up needed Small amount of fluid around the periphery of the spleen Uterus is present with low-density fluid apparently present in the endometrium, dedicated pelvic ultrasound recommended for further evaluation Degenerative bony changes Electronically Signed: Mathew Angel MD at 10:26 EST , KUB X-Ray 04/24/23 11:03 IMPRESSION: NG tube tip just past the GE junction Small bowel ileus Electronically Signed: Mathew Angel MD at 13:03 EST , KUB X-Ray 04/24/23 12:48 IMPRESSION: Enteric tube tip in the proximal stomach but the side port is at the GE junction. This should be advanced 10 cm for improved positioning. Electronically Signed: Jose Junior MD at 13:44 EST , ADDENDUM: 04/24/23 1358 IMPRESSION: Enteric tube tip in the proximal stomach but the side port is at the GE junction. This should be advanced 10 cm for improved positioning. N.B. : The above information has been verbally conveyed by Jose Junior MD to TEN Keller, on 04/24/2023 13:51:33 (ET). Electronically Signed: Jose Junior MD at 13:44 EST , KUB X-Ray 04/24/23 13:37 IMPRESSION: There is a feeding tube/ nasogastric tube noted. The tip is in the region of the stomach. Electronically Signed: Manish Henderson MD at 15:45 EST , Physical Exam Const alert, oriented x3, no apparent distress and average body habitus Constitutional Narrative: Pleasant elderly female, sitting comfortably in bed, conversing normally, no acute distress. General Appearance: cooperative and comfortable HEENT normocephalic, head/scalp atraumatic, hearing grossly normal bilaterally, nasal mucous membranes and turbinates normal and moist oral mucous membranes Eyes PERRL, EOMs intact bilaterally and conjunctivae normal Neck full ROM, no lymphadenopathy and supple Lymph Lymphatic: no lymphadenopathy noted Chest inspection of chest normal Resp normal respiratory effort, normal air movement, no use of accessory muscles and clear to auscultation bilaterally Cardio regular rate, regular rhythm, no murmurs and peripheral pulses 2+ throughout GI normal to inspection, nondistended, normoactive bowel sounds, soft to palpation, non-tender and non-distended Back/Spine normal ROM Extremity normal to inspection, full ROM and no pedal edema Skin no rashes or lesions noted Neuro moves all extremities and no focal motor deficits Speech: speech normal Psych mental status grossly normal Assessment & Plan Assessment/Plan (1) Small bowel obstruction: PLAN: Plan Patient is a 77-year-old female who presented to [facility] ED on 04/24/2023 with worsening abdominal pain. General surgery primary patient, medicine consulted for medical management. 1. Small bowel obstruction, improving; left inguinal hernia CT abdomen pelvis on admit showed abnormal distended fluid-filled small bowel loops throughout the abdomen consistent with obstruction. Suspected secondary to adhesions from previous abdominal surgeries as noted below. NG tube placed in ED but as noted by surgery, patient coughed out 2 different tubes in the ED. Noted that patient had minimal output from NG tube, was okay for the floor without an NG tube. ? General surgery primary patient. Patient has had several loose bowel movements since admission. Small bowel follow-through study completed on 04/25, read pending. If obstruction is present, surgery planning to advance diet and determine timing for hernia surgery. 2. Atherosclerotic heart disease S/p drug-eluting stent placement in June 2022, currently on aspirin and Plavix. ? Discussed informally with Dr. Najera on admit, okay for patient to be taken off aspirin and Plavix for 5 days without harm. Follow surgery recs. If no need for a procedure, restart aspirin and Plavix. Chronic medical conditions: ? Hypertension, hyperlipidemia: Restart home irbesartan and statin on 04/26. ? Depression: Stable. Restart home Lexapro on 04/26. ? Hypothyroidism: Restart home Synthroid on 04/26. ? History of cholecystectomy and appendectomy DVT prophylaxis: SCDs CODE STATUS: Full code, unverified Expected disposition: Home, TBD Total clinical time spent by myself addressing the patient's medical issues, reviewing all the data, and collaborating with patient's care team: 35 minutes. Charges/Coding Visit Charges Inpatient E&M: 55687 Subs Hosp L2
--- NOTE | 2023-04-25 09:00 | RAD_ITS ---
CLINICAL HISTORY: Female, 77 years old. Multiple bowel movements. PROCEDURE: Modified small bowel follow through with Gastrografin. TECHNIQUE: (All elements of maximal sterile barrier technique followed, including US elements as applicable) The patient ingested a mixture of 150 cc of Gastrografin 950 cc of water. Imaging was obtained immediately and 4 1/2 hours following the ingestion. Contrast is seen within the colon RAD/Small Bowel Series Only IMPRESSION: . No evidence of small bowel obstruction at this time. Electronically Signed: Felipe Novak MD at 8:56 EST ,
[2023-04-25] MEDS: Pantoprazole Sodium 40 MG in 0.9% Normal Saline (100mL MB+) 100 ML 330 MG IV (09:20)
[2023-04-25] MEDS: LEVOTHYROXINE SODIUM 100 MCG VIAL 50 MCG IV (11:28)
--- NOTE | 2023-04-25 11:28 | PN.SURG_ITS ---
Subjective Subjective Patient seen and examined during AM rounds. She was admitted to the [facility] floor yesterday unfortunately after coughing out 2 different nasogastric tubes when EM nursing was attempting to advance the tubes further. Given the minimal distention of her stomach and the minimal output from these tubes I gave the go ahead to bring her to the floor without a tube. She shares that overnight she may have had 1 episode of vomiting, but has otherwise felt well and feels well this morning. She also confirms several loose bowel movements overnight. Objective Data Objective Data Vital Signs: Vital Signs Temp Pulse Resp BP Pulse Ox O2 Del Method 98.4 F 81 18 100/41 L 97 Bi-pap 04/25/23 05:26 04/25/23 05:26 04/25/23 05:26 04/25/23 05:26 04/25/23 05:26 04/25/23 08:00 Oxygen Delivery Method Bi-pap Weight: 131 lb 4.8 oz Body Mass Index (BMI) 24.7 Intake & Output: Intake and Output for Last 24 Hours 04/23/23 04/24/23 04/25/23 23:59 23:59 23:59 Intake Total 2268.75 / 2268.75 1110 / 1110 Output Total 100 / 100 Balance 2168.75 / 2168.75 1110 / 1110 Lab / Micro Data 04/25/23 04:45 04/25/23 04:45 Labs: Laboratory Results - last 24 hr 04/24/23 11:20: Lactic Acid 1.2 04/25/23 04:45: WBC 10.4, RBC 3.69 L, Hgb 12.7, Hct 40.2, MCV 108.9 H, MCH 34.4 H, MCHC 31.6 L, RDW Std Deviation 49.1 H, RDW Coeff of Alvin 12.0, Plt Count 162, MPV 10.0, Immature Gran % (Auto) 0.500, Neut % (Auto) 72.1 H, Lymph % (Auto) 16.8 L, [place] % (Auto) 8.8, Eos % (Auto) 0.9, Baso % (Auto) 0.9, Absolute Neuts (auto) 7.5, Absolute Lymphs (auto) 1.74, Nucleated RBC % 0, Sodium 141, Potassium 3.9, Chloride 113 H, Carbon Dioxide 23.0, Anion Gap 5, BUN 25 H, Creatinine 1.20 H, Estim Creat Clear Calc 30.57, Est GFR (MDRD) Af Amer 56 L, Est GFR (MDRD) Non-Af 46 L, BUN/Creatinine Ratio 20.8 H, Glucose 129 H, Calcium 7.7 L, Phosphorus 3.4, Magnesium 2.0 Radiography Diagnostic Testing: Radiology Impression KUB X-Ray 04/24/23 11:03 IMPRESSION: NG tube tip just past the GE junction Small bowel ileus Electronically Signed: Mathew Angel MD at 13:03 EST , KUB X-Ray 04/24/23 12:48 IMPRESSION: Enteric tube tip in the proximal stomach but the side port is at the GE junction. This should be advanced 10 cm for improved positioning. Electronically Signed: Jose Junior MD at 13:44 EST , ADDENDUM: 04/24/23 1358 IMPRESSION: Enteric tube tip in the proximal stomach but the side port is at the GE junction. This should be advanced 10 cm for improved positioning. N.B. : The above information has been verbally conveyed by Jose Junior MD to TEN Keller, on 04/24/2023 13:51:33 (ET). Electronically Signed: Jose Junior MD at 13:44 EST , KUB X-Ray 04/24/23 13:37 IMPRESSION: There is a feeding tube/ nasogastric tube noted. The tip is in the region of the stomach. Electronically Signed: aMnish Henderson MD at 15:45 EST , Physical Exam Const oriented x3 Resp normal respiratory effort Resp Narrative: CPAP in place GI GI Narrative: Nondistended, soft, nontender to palpation x 4 quadrants Narrative: No left groin tenderness or fullness Assessment & Plan Assessment/Plan (1) Small bowel obstruction: (2) Left inguinal hernia: (3) Mural thickening of sigmoid colon: PLAN: Plan Patient is a 77-year-old female with a presentation for acute onset left lower quadrant pain (that became migratory towards a superior medial course) and associated nausea and vomiting. Her workup suggests multiple etiologies for her symptoms including a small bowel obstruction secondary to adhesions versus a small bowel obstruction secondary to a recently incarcerated left inguinal hernia versus 1 or more of the above with concurrent mild diverticulitis. Based on patient's history and exam I suspect she most likely had a transiently incarcerated left inguinal hernia and has persistent evidence of a small bowel obstruction. With this impression, I have recommended placement of nasogastric tube and this was performed by emergency medicine. Unfortunately the nasogastric tube was displaced by patient despite 2 different attempts. However, her stomach was minimally distended and it was my hope that patient's small bowel obstruction would be immediately relieved given that the hernia was empty. Patient confirms that she had no further emesis overnight and this morning. To confirm patency of the small bowel I would like for her to begin a small bowel follow-through with her ingesting the contrast at bedside. If there is no obstruction we will look to advance her diet and determine whether or not she will undergo surgery this admission or was short-term follow- up for her inguinal hernia. Neuro: As needed Dilaudid Pulm/CV: Incentive spirometer, management of cardiac meds per hospitalist service, hold Plavix and aspirin, telemetry FEN/GI: Daily electrolytes, IV fluid resuscitation given evidence of hemoconcentration, follow-up small bowel follow-through, prophylactic Protonix : No present issues, but patient does communicate she had a recent UTI Heme/ID: Trend CBC with differential, at this time not inclined to proceed with IV antibiotic management of diverticulitis given patient's exam Endo: No current issues Proph: SCDs Dispo: Continue inpatient stay Charges/Coding Visit Charges Inpatient E&M: 09356 Subs Hosp L2
[2023-04-25 11:30] VITALS: BP 141/53; PULSE 83; RESP 16; TEMP 36.7; O2SAT 98
--- NOTE | 2023-04-25 12:00 | CASEMGMT ---
BELEN DECKER Assessment: Face to Face with pt for initial transition planning/care coordination assessment. RN BRIANNE introduced self and role at [facility], pt voices understanding and consents to assessment. Pt is A&O x4 and answers all questions appropriately at this time. Pt lying in bed in no distress. Care providers, pharmacy, and demographics verified/updated. Admitting Dx: SBO PCP:Mahesh Specialists:analy Cabral; Pt states she has an upcoming appt with [facility] Preferred Pharmacy:[facility] Insurance: [employer] [facility] Prescription Benefit: yes LNOK: Jacob Verdugo, Living Arrangements: Pt lives with and adult son in a two story home with 2 steps to enter with a rail. Pt reports she is I in ADL's and denies concerns at home. Transportation: Pt drives self and denies concerns with transportation. DME:cpap HHC/SNF:Denies hx of Pt states no concerns with going home at time of dc. Pt states no further concerns/needs. CM to follow. Advised pt to ask CM if any further question/concerns/needs arise, voices understanding. Pt Goal: Home Plan: Home pending course of hospitalization
[2023-04-25] MEDS: Enalaprilat 1.25 MG/ML Vial 0.625 MG IV (12:24)
[2023-04-25 16:00] VITALS: BP 114/37; PULSE 77; RESP 16; TEMP 36.6; O2SAT 99
[2023-04-25] MEDS: Atorvastatin Calcium 20 MG Tablet PO (22:27)
[2023-04-25] MEDS: Mirtazapine 15 MG Tablet 7.5 MG PO (22:27)
[2023-04-25] MEDS: Dicyclomine 10 MG Capsule 20 MG PO (22:27)
[2023-04-25 22:28] VITALS: BP 130/56; PULSE 83
[2023-04-25] MEDS: Metoprolol Tartrate 25 MG Tablet 12.5 MG PO (22:28)
[2023-04-25 22:30] VITALS: BP 130/56; PULSE 83; RESP 18; TEMP 37; O2SAT 96
[2023-04-26] MEDS: 0.9% Normal Saline (1000mL) 1,000 ML 125 ML IV ×3 (01:52→16:27)
[2023-04-26 02:00] VITALS: BP 124/62; PULSE 63; RESP 18; TEMP 37.1; O2SAT 98
[2023-04-26] MEDS: Levothyroxine 50 MCG Tablet PO (05:38)
[2023-04-26] MEDS: Dicyclomine 10 MG Capsule 20 MG PO ×3 (05:39→21:16)
[2023-04-26 07:53] VITALS: BP 140/45; PULSE 72; RESP 16; TEMP 37.1; O2SAT 96
[2023-04-26] MEDS: Calcium Carb/Vitamin D 1 TABLET Tablet PO (08:01)
[2023-04-26] MEDS: Thiamine Hydrochloride 100 MG Tablet PO (08:01)
--- NOTE | 2023-04-26 08:17 | PCM.PN.SRG ---
Subjective Subjective Patient is a 77 y/o F I am following in conjunction with Dr. Menjivar. Patient notes her loose stools have drastically slowed down. She denies nausea, vomiting. She is tolerating her clear liquid diet. She denies any abdominal pain. Objective Data Objective Data Vital Signs: Vital Signs Temp Pulse Resp BP Pulse Ox O2 Del Method 98.8 F 72 16 140/45 H 96 Room Air 04/26/23 07:53 04/26/23 07:53 04/26/23 07:53 04/26/23 07:53 04/26/23 07:53 04/26/23 07:53 Oxygen Delivery Method Room Air Weight: 131 lb 4.8 oz Body Mass Index (BMI) 24.7 Intake & Output: Intake and Output for Last 24 Hours 04/24/23 04/25/23 04/26/23 23:59 23:59 23:59 Intake Total 2268.75 / 2268.75 2110 / 2110 1000 / 1000 Output Total 100 / 100 Balance 2168.75 / 2168.75 2110 / 2110 1000 / 1000 Lab / Micro Data 04/25/23 04:45 04/25/23 04:45 Physical Exam GI normal to inspection, nondistended, normoactive bowel sounds GI Narrative: Left inguinal hernia noted Assessment & Plan Assessment/Plan (1) Left inguinal hernia: PLAN: Dr. Menjivar will plan to perform an open left inguinal hernia repair with mesh tomorrow. Will plan to increase patient to a transitional diet. NPO after midnight. Continue to hold Plavix. Possible discharge after procedure tomorrow. (2) Small bowel obstruction: PLAN: Resolved Charges/Coding Visit Charges Inpatient E&M: 08506 [facility] Hosp L1
[2023-04-26 09:35] LABS: Absolute Lymphocyte Count 1.79 X10^3/uL (0.83-4.51); Absolute Neutrophil Count 3.7 X10^3/uL (2.0-7.7); Basophil# 0.05 X10^3/uL; Basophil% 0.8 % (0-1); Eosinophil# 0.16 X10^3/uL; Eosinophils% 2.6 % (0-5); Hematocrit 38.3 % (37-47); Hemoglobin 12.8 g/dL (12.0-15.0); Lymphocyte # 1.79 X10^3/ul (0.83-4.51); Lymphocyte % 28.6 % (19-41); Mean Corp Hgb Conc 33.4 g/dL (32-36); Mean Corpuscular Hgb 36.4 pg (27.0-32.0); Mean Corpuscular Volume 108.8 fL (81-99); Monocyte# 0.55 X10^3/uL; Monocyte% 8.8 % (0-10); NRBC Flagged by Analyzer 0 % (0-5); Neutrophil # 3.69 X10^3/uL (2.7-7.7); Platelet Count 138 K/mm3 (150-450); RBC Distribution Width SD 47.8 fl (35.1-43.9); Red Blood Count 3.52 M/mm3 (4.2-5.4); White Blood Count 6.3 K/mm3 (4.4-11.0)
[2023-04-26] MEDS: Budesonide 3 MG CAPSULE.EC 9 MG PO (09:36)
[2023-04-26 09:37] VITALS: BP 140/45; PULSE 72
[2023-04-26] MEDS: Escitalopram Oxalate 10 MG Tablet 5 MG PO (09:37)
[2023-04-26] MEDS: Losartan Potassium 25 MG Tablet PO (09:37)
[2023-04-26] MEDS: Metoprolol Tartrate 25 MG Tablet 12.5 MG PO ×2 (09:37→21:14)
[2023-04-26 10:09] LABS: Anion Gap 4 (5-15); BUN 13 mg/dL (7-18); BUN/Creat Ratio 16.7 RATIO (10-20); Calcium,Total 8.1 mg/dL (8.5-10.1); Chloride 118 mmol/L (98-107); Creatinine, Serum 0.78 mg/dL (0.55-1.02); EST Glomerular Filtration Rate 76 mL/min (>60); Est Glom Filt Rate - Afr Amer 93 mL/min (>60); Estimated Creatinine Clearance 36.68 ml/min; Glucose 79 mg/dL (74-106); Potassium 3.4 mmol/L (3.5-5.1); Sodium Level 143 mmol/L (136-145)
[2023-04-26 14:30] VITALS: BP 143/52; PULSE 67; RESP 16; TEMP 37.1; O2SAT 97
--- NOTE | 2023-04-26 16:24 | PN.HOSP_ITS ---
Reason for Visit Reason for Visit: Diagnoses Unilateral inguinal hernia, without obstruction or gangrene, not specified as r ecurrent (04/24/23) Unspecified intestinal obstruction, unspecified as to partial versus complete ob struction (04/24/23) Disease of intestine, unspecified (04/24/23) Subjective Subjective Patient seen at bedside this morning. States general surgery saw her earlier this morning and told her that her small bowel follow-through study showed no small bowel obstruction. She stated that surgery is planning to fix her inguin al hernia tomorrow, with hopefully discharge home tomorrow afternoon or . Patient states she has had fewer bowel movements overnight and this morning than yesterday. She denies any nausea/vomiting. Has had a decent appetite, eating and drinking fairly well. No other acute concerns this m orning. Objective Data Objective Data Vital Signs: Vital Signs Temp Pulse Resp BP Pulse Ox O2 Del Method 98.8 F 67 16 143/52 H 97 Room Air 04/26/23 14:30 04/26/23 14:30 04/26/23 14:30 04/26/23 14:30 04/26/23 14:30 04/26/23 14:30 Oxygen Delivery Method Room Air Weight: 59.557 kg Body Mass Index (BMI) 24.7 Intake & Output: Intake and Output for Last 24 Hours 04/24/23 04/25/23 04/26/23 23:59 23:59 23:59 Intake Total 2268.75 / 2268.75 2109 / 0 1904.17 / 1904.17 Output Total 100 / 100 Balance 2168.75 / 2168.75 2109 1904.17 / 1904.17 Lab / Micro Data 04/26/23 09:16 04/26/23 09:16 Labs: Laboratory Results - last 24 hr 04/26/23 07:33: WBC Cancelled, Corrected WBC Cancelled, RBC Cancelled, Hgb Cancelled, Hct Cancelled, MCV Cancelled, MCH Cancelled, MCHC Cancelled, RDW Std Deviation Cancelled, RDW Coeff of Alvin Cancelled, Plt Count Cancelled, MPV Cancelled, Immature Gran % (Auto) Cancelled, Neut % (Auto) Cancelled, Lymph % (Auto) Cancelled, Tama % (Auto) Cancelled, Eos % (Auto) Cancelled, Baso % (Auto) Cancelled, Absolute Neuts (auto) Cancelled, Absolute Lymphs (auto) Cancelled, Total Counted Cancelled, Neutrophils % (Manual) Cancelled, Band Neutrophils % Cancelled, Lymphocytes % (Manual) Cancelled, Monocytes % (Manual) Cancelled, Eosinophils % (Manual) Cancelled, Basophils % (Manual) Cancelled, Metamyelocytes % Cancelled, Myelocytes % Cancelled, Promyelocytes % Cancelled, Blast Cells % Cancelled, Plasma Cell % (Manual) Cancelled, Other Cells % Cancelled, Nucleated RBC % Cancelled, Nucleated RBCs/100 WBC Cancelled, Differential Comment Cancelled, Diff Path Review Cancelled, Hypersegmented Neuts Cancelled, Atypical Lymphocytes Cancelled, Reactive Lymphocytes Cancelled, Smudge Cells Cancelled, Toxic Granulation Cancelled, Toxic Vacuolation Cancelled, Dohle Bodies Cancelled, Elo Rods Cancelled, Platelet Estimate Cancelled, Plt Morphology Comment Cancelled, RBC Morphology Cancelled 04/26/23 07:33: RBC Morphology Cancelled, Polychromasia Cancelled, Hypochromasia Cancelled, Poikilocytosis Cancelled, Basophilic Stippling Cancelled, Anisocytosis Cancelled, Microcytosis Cancelled, Macrocytosis Cancelled, Spherocytes Cancelled, Sickle Cells Cancelled, Target Cells Cancelled, Tear Drop Cells Cancelled, Ovalocytes Cancelled, Stomatocytes Cancelled, Gray-[place] Base Housing Bodies Cancelled, [place] Cells Cancelled, Bite Cells Cancelled, Crenated Cell Cancelled, Acanthocytes (Spur) Cancelled, Rouleaux Cancelled, Schistocytes Cancelled, Sodium Cancelled, Potassium Cancelled, Chloride Cancelled, Carbon Dioxide Cancelled, Anion Gap Cancelled, BUN Cancelled, Creatinine Cancelled, Es monique Creat Clear Calc Cancelled, Est GFR (MDRD) Af Amer Cancelled, Est GFR (MDRD) Non-Af Cancelled, BUN/Creatinine Ratio Cancelled, Glucose Cancelled, Calcium Cancelled 04/26/23 09:16: WBC 6.3, RBC 3.52 L, Hgb 12.8, Hct 38.3, MCV 108.8 H, MCH 36.4 H , MCHC 33.4 D, RDW Std Deviation 47.8 H, RDW Coeff of Alvin 12.0, Plt Count 138 L , MPV 10.0, Immature Gran % (Auto) 0.200, Neut % (Auto) 59.0, Lymph % (Auto) 28.6, Tama % (Auto) 8.8, Eos % (Auto) 2.6, Baso % (Auto) 0.8, Absolute Neuts (auto) 3.7, Absolute Lymphs (auto) 1.79, Nucleated RBC % 0, Sodium 143, Potassium 3.4 L, Chloride 118 H, Carbon Dioxide 21.0, Anion Gap 4 L, BUN 13, Creatinine 0.78, Estim Creat Clear Calc 36.68, Est GFR (MDRD) Af Amer 93, Est GFR (MDRD) Non-Af 76, BUN/Creatinine Ratio 16.7, Glucose 79, Calcium 8.1 L Radiography Diagnostic Testing: Radiology Impression Small Bowel X-Ray 04/25/23 09:00 IMPRESSION: . No evidence of small bowel obstruction at this time. Electronically Signed: Felipe Novak MD at 8:56 EST , Physical Exam Const alert, oriented x3, no apparent distress and average body habitus Constitutional Narrative: Pleasant elderly female, sitting comfortably in bed, conversing normally, no acute distress. General Appearance: cooperative and comfortable HEENT normocephalic, head/scalp atraumatic, hearing grossly normal bilaterally, nasal mucous membranes and turbinates normal and moist oral mucous membranes Eyes PERRL, EOMs intact bilaterally and conjunctivae normal Neck full ROM, no lymphadenopathy and supple Lymph Lymphatic: no lymphadenopathy noted Chest inspection of chest normal Resp normal respiratory effort, normal air movement, no use of accessory muscles and clear to auscultation bilaterally Cardio regular rate, regular rhythm, no murmurs and peripheral pulses 2+ throughout GI normal to inspection, nondistended, normoactive bowel sounds, soft to palpation, non-tender and non-distended Back/Spine normal ROM Extremity normal to inspection, full ROM and no pedal edema Skin no rashes or lesions noted Neuro moves all extremities and no focal motor deficits Speech: speech normal Psych mental status grossly normal Assessment & Plan Assessment/Plan (1) Small bowel obstruction: PLAN: Plan Patient is a 77-year-old female who presented to [facility] ED on 04/24/2023 with worsening abdominal pain. General surgery primary patient, medicine consulted for medical management. 1. Small bowel obstruction, resolved; left inguinal hernia CT abdomen pelvis on admit showed abnormal distended fluid-filled small bowel loops throughout the abdomen consistent with obstruction. Suspected secondary to adhesions from previous abdominal surgeries as noted below. NG tube placed in ED but as noted by surgery, patient coughed out 2 different tubes in the ED. Noted that patient had minimal output from NG tube, was okay for the floor without an NG tube. Had good stool output by evening of admission. Small bowel follow-through study 04/25 showed no evidence of SBO. ? General surgery primary. Plan is for open left inguinal hernia repair with mesh tomorrow. N.p.o. at midnight. Tolerated clear liquid diet well, increased to transitional diet until midnight. Continue to hold Plavix. Possible discharge tomorrow after procedure versus . 2. Diarrhea, improving; history of IBS History of IBS with primarily diarrhea. Patient had several episodes of loose bowel movements after her small bowel obstruction resolved. Suspect this is likely related to the SBO. Low concern for active infection. ? Diarrhea improved fairly significantly without intervention. Continue to monitor. 3. Atherosclerotic heart disease S/p drug-eluting stent placement in June 2022, currently on aspirin and Plavix. ? Discussed informally with Dr. Najera on admit, okay for patient to be taken off aspirin and Plavix for 5 days without harm. Continue holding aspirin and Plavix. Will discuss with surgery on timing of restarting these medications postoperatively. 4. Preoperative evaluation Low risk procedure, below average risk for postoperative complications. Patient able to complete 4 METS at baseline without issue. No previous history of intraoperative or postoperative complications. Hemoglobin stable at patient's baseline of 12-13. Normal kidney function. Previous EKG's all show NSR. Last echo 06/2022 showed EF 65%, stage I diastolic dysfunction, no other ab normalities. - Patient is medically stable for procedure tomorrow. Continue all home medications perioperatively aside from Plavix and aspirin. Chronic medical conditions: ? Hypertension, hyperlipidemia: Restart home irbesartan and statin on 04/26. ? Depression: Stable. Restart home Lexapro on 04/26. ? Hypothyroidism: Restart home Synthroid on 04/26. ? History of cholecystectomy and appendectomy DVT prophylaxis: SCDs CODE STATUS: Full code, unverified Expected disposition: Home, 1-2 days Total clinical time spent by myself addressing the patient's medical issues, reviewing all the data, and collaborating with patient's care team: 35 minutes. Charges/Coding Visit Charges Inpatient E&M: 77479 Subs Hosp L2
[2023-04-26 21:11] VITALS: BP 161/52; PULSE 78; RESP 18; TEMP 36.8; O2SAT 97
[2023-04-26 21:14] VITALS: BP 161/52; PULSE 78
[2023-04-26] MEDS: Atorvastatin Calcium 20 MG Tablet PO (21:15)
[2023-04-26] MEDS: 0.9% Saline Lock 10 ML Syringe IV (21:25)
[2023-04-26] MEDS: MELATONIN 10 MG TABLET PO (21:33)
[2023-04-27] VITALS (16 sets, daily range): BP systolic 125–181; BP diastolic 48–78; PULSE 63–101; RESP 16–18; TEMP 36.6–37.3; O2SAT 90–100; BMI 24.7
--- NOTE | 2023-04-27 | HERN_PTH ---
PATIENT: CRISTINO MATA LOC: MS3 U#:[id number] AGE/SX: 77/F ROOM: W[facility]317 RE04/24/[address]: Dr. Thomas Menjivar MD : 1945 BED: 1 DIS: 04/27/2023 SPEC #: [id number] RECD: 04/27/23 18:25 STATUS: MILO VICK #: [id number] BRIANNA: 04/27/23 00:[address]: Thomas Menjivar DEPT: SURGICAL PATHOLOGY RECD BY: Todd Moreno ENTERED: 04/28/23 09:00 SP TYPE: Hernia OTHR DR: MD Dr. Ted Mcdaniel, DO Tissues: A - Soft tissues, NOS B - HERNIA Procedures: Surgery Specimen Level II Surgery Specimen Level III HEADER OPERATION: Left inguinal hernia repair with mesh PRE-OP DIAGNOSIS: Small bowel obstruction, Left inguinal hernia, Mural thickening of sigmoid colon. TISSUE SUBMITTED: A - Left inguinal cord lipoma, B - Left inguinal hernia sac MICROSCOPIC DIAGNOSIS A. Left inguinal cord lipoma, excision: Mature adipose tissue with vascular congestion and focal chronic inflammation. B. Left inguinal hernia sac, herniorrhaphy: Fibrosis, vascular congestion and mild chronic inflammation. AM:sherly 04/29/2023 MICROSCOPIC DESCRIPTION Slides are reviewed. GROSS DESCRIPTION A - Received in fixative is one container labeled with the patient's name and designated cord lipoma left inguinal. The specimen consists of two pieces of adipose tissue measuring in aggregate 3.5 x 4.0 x 2.0 cm. Sections do not reveal any mass lesion. Sections reveal yellow adipose cut surfaces without area of hemorrhage, necrosis or cystic degeneration. Microbiology Professor sections are submitted in one cassette. B - Received in fixative is one container labeled with the patient's name and designated left inguinal hernia sac. The specimen consists of a piece of landis, congested soft tissue measuring 5.0 x 2.0 x 0.5 cm. No mass lesion is identified. Microbiology Professor sections are submitted in one cassette. / SJ:sherly 04/28/2023 TC:3 CPT: 60502, 43343
[2023-04-27] MEDS: 0.9% Normal Saline (1000mL) 1,000 ML 125 ML IV (00:57)
[2023-04-27 04:53] LABS: Absolute Lymphocyte Count 1.26 X10^3/uL (0.83-4.51); Absolute Neutrophil Count 4.6 X10^3/uL (2.0-7.7); Basophil# 0.02 X10^3/uL; Basophil% 0.3 % (0-1); Eosinophil# 0.03 X10^3/uL; Eosinophils% 0.5 % (0-5); Hemoglobin 11.5 g/dL (12.0-15.0); Lymphocyte # 1.26 X10^3/ul (0.83-4.51); Lymphocyte % 19.9 % (19-41); Mean Corp Hgb Conc 33.8 g/dL (32-36); Mean Corpuscular Hgb 35.4 pg (27.0-32.0); Mean Corpuscular Volume 104.6 fL (81-99); Mean Platelet Vol. 10.2 fl (6.2-12.0); Monocyte% 6.3 % (0-10); NRBC Flagged by Analyzer 0 % (0-5); Neutrophil # 4.61 X10^3/uL (2.7-7.7); Neutrophil % 72.8 % (47-70); Platelet Count 140 K/mm3 (150-450); RBC Distribution Width CV 11.7 % (11.6-14.6); RBC Distribution Width SD 44.9 fl (35.1-43.9); Red Blood Count 3.25 M/mm3 (4.2-5.4); White Blood Count 6.3 K/mm3 (4.4-11.0)
[2023-04-27 05:03] LABS: International Normalized Ratio 1.4; Prothrombin Time (Protime)PT. 16.7 SECONDS (11.7-14.9)
[2023-04-27 05:04] LABS: Partial Thromboplast Time 31.3 Seconds (24.1-36.2)
[2023-04-27 05:32] LABS: AST(SGOT) 33 U/L (15-37); Alanine Aminotransfer ALT/SGPT 24 U/L (13-56); Albumin, Serum 2.6 g/dL (3.2-5.0); Alkaline Phosphatase 55 U/L (45-117); Anion Gap 5 (5-15); BUN 14 mg/dL (7-18); BUN/Creat Ratio 20.1 RATIO (10-20); Bilirubin, Direct 0.27 mg/dL (0.00-0.30); Calcium,Total 7.9 mg/dL (8.5-10.1); Chloride 120 mmol/L (98-107); EST Glomerular Filtration Rate 87 mL/min (>60); Est Glom Filt Rate - Afr Amer 106 mL/min (>60); Estimated Creatinine Clearance 36.68 ml/min; Globulin 2.9 g/dL (2.2-4.2); Glucose 131 mg/dL (74-106); Potassium 3.6 mmol/L (3.5-5.1); Protein, Total 5.5 g/dL (6.4-8.2); Sodium Level 145 mmol/L (136-145); Thyroid Stim Hormone (TSH) 0.94 uIU/mL (0.358-3.74)
[2023-04-27] MEDS: Levothyroxine 50 MCG Tablet PO (05:54)
[2023-04-27] MEDS: Dicyclomine 10 MG Capsule 20 MG PO (05:54)
[2023-04-27] MEDS: Losartan Potassium 25 MG Tablet PO (05:54)
--- NOTE | 2023-04-27 05:55 | EKG12_ITS ---
Test Reason : AM EKG Blood Pressure : / mmHG Vent. Rate : 066 BPM Atrial Rate : 066 BPM P-R Int : 156 ms QRS Dur : 078 ms QT Int : 428 ms P-R-T Axes : 009 021 027 degrees QTc Int : 448 ms Sinus rhythm with Premature atrial complexes Septal infarct , age undetermined Abnormal ECG Confirmed by RAMAKRISHNA CROWDER, SILVIA ([id number]), editor house organ PIEDAD SLAUGHTER ([id number]) on 05/02/2023 12:52:04 PM Referred By: JACQUES Confirmed By:KRISTA DURBIN MD
[2023-04-27] MEDS: Metoprolol Tartrate 25 MG Tablet 12.5 MG PO (08:35)
[2023-04-27] MEDS: Budesonide 3 MG CAPSULE.EC 9 MG PO (08:35)
[2023-04-27] MEDS: Escitalopram Oxalate 10 MG Tablet 5 MG PO (08:35)
[2023-04-27] MEDS: Lactated Ringers 1,000 ML 125 ML IV ×2 (08:39→17:40)
--- NOTE | 2023-04-27 08:48 | PN.SURG_ITS ---
Subjective Subjective Patient seen and examined during AM rounds. She is found resting quietly in bed. She denies any acute events overnight. She confirms that she has been n.p.o. since midnight. Objective Data Objective Data Vital Signs: Vital Signs Temp Pulse Resp BP Pulse Ox O2 Del Method 98.1 F 75 18 164/70 H 98 Room Air 04/27/23 05:49 04/27/23 08:35 04/27/23 05:49 04/27/23 05:49 04/27/23 05:49 04/27/23 05:49 Oxygen Delivery Method Room Air Weight: 131 lb 4.8 oz Body Mass Index (BMI) 24.7 Intake & Output: Intake and Output for Last 24 Hours 04/25/23 04/26/23 04/27/23 23:59 23:59 23:59 Intake Total 2109 2822.92 / 2822.92 1962.5 / 2.5 Balance 2109 2822.92 / 2822.92 1961.5 / 1961.5 Lab / Micro Data 04/27/23 04:25 04/27/23 04:25 Labs: Laboratory Results - last 24 hr 04/26/23 07:33: WBC Cancelled, Corrected WBC Cancelled, RBC Cancelled, Hgb Cancelled, Hct Cancelled, MCV Cancelled, MCH Cancelled, MCHC Cancelled, RDW Std Deviation Cancelled, RDW Coeff of Alvin Cancelled, Plt Count Cancelled, MPV Cancelled, Immature Gran % (Auto) Cancelled, Neut % (Auto) Cancelled, Lymph % (Auto) Cancelled, [place] % (Auto) Cancelled, Eos % (Auto) Cancelled, Baso % (Auto) Cancelled, Absolute Neuts (auto) Cancelled, Absolute Lymphs (auto) Cancelled, Total Counted Cancelled, Neutrophils % (Manual) Cancelled, Band Neutrophils % Cancelled, Lymphocytes % (Manual) Cancelled, Monocytes % (Manual) Cancelled, Eosinophils % (Manual) Cancelled, Basophils % (Manual) Cancelled, Metamyelocytes % Cancelled, Myelocytes % Cancelled, Promyelocytes % Cancelled, Blast Cells % Cancelled, Plasma Cell % (Manual) Cancelled, Other Cells % Cancelled, Nucleated RBC % Cancelled, Nucleated RBCs/100 WBC Cancelled, Differential Comment Cancelled, Diff Path Review Cancelled, Hypersegmented Neuts Cancelled, Atypical Lymphocytes Cancelled, Reactive Lymphocytes Cancelled, Smudge Cells Cancelled, Toxic Granulation Cancelled, Toxic Vacuolation Cancelled, Dohle Bodies Cancell ed, Elo Rods Cancelled, Platelet Estimate Cancelled, Plt Morphology Comment Cancelled, RBC Morphology Cancelled 04/26/23 07:33: RBC Morphology Cancelled, Polychromasia Cancelled, Hypochromasia Cancelled, Poikilocytosis Cancelled, Basophilic Stippling Cancelled, Anisocytosis Cancelled, Microcytosis Cancelled, Macrocytosis Cancelled, Spherocytes Cancelled, Sickle Cells Cancelled, Target Cells Cancelled, Tear Drop Cells Cancelled, Ovalocytes Cancelled, Stomatocytes Cancelled, Gray-Govan Bodies Cancelled, Rosa Cells Cancelled, Bite Cells Cancelled, Crenated Cell Cancelled, Acanthocytes (Spur) Cancelled, Rouleaux Cancelled, Schistocytes Cancelled, Sodium Cancelled, Potassium Cancelled, Chloride Cancelled, Carbon Dioxide Cancelled, Anion Gap Cancelled, BUN Cancelled, Creatinine Cancelled, Estim Creat Clear Calc Cancelled, Est GFR (MDRD) Af Amer Cancelled, Est GFR (MDR D) Non-Af Cancelled, BUN/Creatinine Ratio Cancelled, Glucose Cancelled, Calcium Cancelled 04/26/23 09:16: WBC 6.3, RBC 3.52 L, Hgb 12.8, Hct 38.3, MCV 108.8 H, MCH 36.4 H , MCHC 33.4 D, RDW Std Deviation 47.8 H, RDW Coeff of Alvin 12.0, Plt Count 138 L , MPV 10.0, Immature Gran % (Auto) 0.200, Neut % (Auto) 59.0, Lymph % (Auto) 28.6, [place] % (Auto) 8.8, Eos % (Auto) 2.6, Baso % (Auto) 0.8, Absolute Neuts (auto) 3.7, Absolute Lymphs (auto) 1.79, Nucleated RBC % 0, Sodium 143, Potassium 3.4 L, Chloride 118 H, Carbon Dioxide 21.0, Anion Gap 4 L, BUN 13, Creatinine 0.78, Estim Creat Clear Calc 36.68, Est GFR (MDRD) Af Amer 93, Est GFR (MDRD) Non-Af 76, BUN/Creatinine Ratio 16.7, Glucose 79, Calcium 8.1 L 04/27/23 04:25: WBC 6.3, RBC 3.25 L, Hgb 11.5 L, Hct 34.0 L, MCV 104.6 H, MCH 35.4 H, MCHC 33.8, RDW Std Deviation 44.9 H, RDW Coeff of Alvin 11.7, Plt Count 140 L, MPV 10.2, Immature Gran % (Auto) 0.200, Neut % (Auto) 72.8 H, Lymph % ( Auto) 19.9, [place] % (Auto) 6.3, Eos % (Auto) 0.5, Baso % (Auto) 0.3, Absolute Neuts (auto) 4.6, Absolute Lymphs (auto) 1.26, Nucleated RBC % 0, PT 16.7 H, INR 1.4, APTT 31.3, Sodium 145, Potassium 3.6, Chloride 120 H, Carbon Dioxide 20.0 L , Anion Gap 5, BUN 14, Creatinine 0.70, Estim Creat Clear Calc 36.68, Est GFR (MDRD) Af Amer 106, Est GFR (MDRD) Non-Af 87, BUN/Creatinine Ratio 20.1 H, Gluco se 131 H, Calcium 7.9 L, Total Bilirubin 0.60, Direct Bilirubin 0.27, AST 33, ALT 24, Alkaline Phosphatase 55, Total Protein 5.5 L, Albumin 2.6 L, Globulin 2.9, TSH 0.94 Radiography Diagnostic Testing: Radiology Impression Small Bowel X-Ray 04/25/23 09:00 IMPRESSION: . No evidence of small bowel obstruction at this time. Electronically Signed: Felipe Novak MD at 8:56 EST , Physical Exam Const oriented x3 and no apparent distress Resp normal respiratory effort GI GI Narrative: Nondistended, soft, nontender to palpation Narrative: Minimally tender with no palpable bulge over left groin Assessment & Plan Assessment/Plan (1) Small bowel obstruction: (2) Left inguinal hernia: (3) Mural thickening of sigmoid colon: PLAN: Plan Patient is a 77-year-old female with a presentation for acute onset left lower quadrant pain (that became migratory towards a superior medial course) and associated nausea and vomiting. Her workup suggests multiple etiologies for her symptoms including a small bowel obstruction secondary to adhesions versus a small bowel obstruction secondary to a recently incarcerated left inguinal hernia versus 1 or more of the above with concurrent mild diverticulitis. Based on patient's history and exam I suspect she most likely had a transiently incarcerated left inguinal hernia and has persistent evidence of a small bowel obstruction. With this impression, I have recommended placement of nasogastric tube and this was performed by emergency medicine. Patient was successfully advanced in a diet yesterday with regular ongoing bowel function. Her abdominal exam remains benign today. I do not appreciate any hernia contents within her left inguinal hernia. Today swift day 5 without her antiplatelet therapy and we are planning to proceed to the operating room for open inguinal hernia repair with mesh placement at about lunchtime. Procedure was discussed with patient as well as postprocedural activity restrictions. She denies any further questions at this time. Neuro: As needed Dilaudid Pulm/CV: Incentive spirometer, management of cardiac meds per hospitalist service, hold Plavix and aspirin, telemetry FEN/GI: Daily electrolytes, IV fluid changed to LR given hyperchloride EMEA, prophylactic Protonix : No present issues, but patient does communicate she had a recent UTI Heme/ID: Patient shows slight downtrend in her hemoglobin but I attribute this to hemodilution as patient most probably came in dehydrated with her frequent vomiting pre-? evaluation Endo: No current issues Proph: SCDs Dispo: Continue inpatient stay, but will reassess patient for possible discharge postoperatively Charges/Coding Visit Charges Inpatient E&M: 97582 Subs Hosp L2
[2023-04-27] MEDS: Lactated Ringers 1,000 ML 15 ML IV (11:45)
[2023-04-27] MEDS: Clindamycin 900 MG/50 ML BAG 75 MG IV (12:09)
[2023-04-27] MEDS: Bupivacaine 0.5% PF 10 ML VIAL (15:17)
--- NOTE | 2023-04-27 15:25 | OP.PCM_ITS ---
Report of Operation Date of Procedure: 04/27/23 Pre-Operative Diagnosis: Left inguinal hernia?recently incarcerated and source of small bowel obstruction Post-Operative Diagnosis: Left direct inguinal hernia?recently incarcerated and source of small bowel obstruction Surgery/Procedure Performed:: ([place] type) left inguinal hernia repair with mesh placement Surgeon: Thomas Menjivar nursery school attendant: Demi Boyle nursery school attendant: Reid Marte Type of Anesthesia: General/Supplemental Anesthesiologist: Keon Hester Specimen's removed: 1. Cord lipoma 2. Hernia sac Drains: None Estimated Blood Loss (mL): 20 Description of Procedure: After appropriate identification in the preoperative holding area the patient was brought to the operating room where she was positioned supine on the operating room table. Preoperative antibiotics with clindamycin was administered and SCDs were placed lower extremities. They were then induced with a general anesthetic by anesthesia. The abdomen and groin area were prepped and draped. A formal timeout was conducted to confirm both patient and procedure. Procedure was begun by marking out the pubic tubercle and the anterior superior iliac spine. An incision line was planned between these 2 points favoring the tubercle. Then a local block was produced with half percent bupivacaine at the anterior superior iliac spine and along the planned incision line. This oblique incision (measuring approximately 10 cm in length) was made using a scalpel. It was deepened down through camper's and Rivera's fascia with the use of electrocautery. Any bleeding was addressed as we proceeded. This brought us down to the level of the external oblique aponeurosis and a bulging hernia sac through the external ring. Once I cleared the external upon neurosis of all soft tissue attachments a small stab incision was made and a pair of Metzenbaum scissors were inserted as a means of displacing any underlying ilioinguinal nerve. The fibers were then opened in the direction of their orientation medially and laterally. Medially, the layer was opened all the way through the external ring?thereby freeing the hernia sac. Notably the ilioinguinal nerve was not immediately apparent. I then bluntly encircled both the hernia sac and the round ligament with and a Deborah drain. The structures were retracted laterally I was able to visualize a large direct defect through the floor of the inguinal canal. I then began an exploration of the hernia sac bluntly removing the cremasteric fibers from the outer portion. The hernia sac was then sharply incised after ensuring that the contents were removed out of the distal portion of the sac. Upon opening the sac we were met with some simple abdominal ascites which was promptly suctioned free of the surgical cavity. I then placed a sponge stick into this defect to return the fatty content to the peritoneum and dissected all attachments back proximally to the abdominal wall. Here the sac was ligated proximally with a 3-0 Vicryl tie then amputated and passed off the operative field for pathology. Adjacent this hernia sac, laterally, I identified a medium to large-size cord lipoma. This was dissected back further proximally and a stick tie was used to secure the base before it also was amputated and passed off for pathologic evaluation. Next, I began exploring the inguinal canal further and quickly concluded that the round ligament had been inadvertently divided so it was further secured with a suture ligature. To exclude the protruding peritoneal contents, I performed a suture approximation the transversalis fascia, adjacent to the conjoined tendon and internal oblique, superiorly, to the shelving edge of the inguinal canal inferiorly using a 2-0 Ethibond suture. I then called for a 6 x 11 cm Ethicon ultra Pro mesh and fashioned this to better fit the width of the canal by removing extraneous mesh. This mesh was first tacked to the pubic tubercle medially with wide overlap. I then serially tacked it along the inguinal ligament inferiorly with additional 2-0 Ethibond. The same procedure was then used to tack the mesh to the conjoined tendon and the internal oblique superiorly. Lastly the tail of the mesh was tucked laterally beneath the external oblique upon neurosis and was tacked to the transversalis fascia posteriorly with interrupted 2-0 Ethibond. The surgical area was then reinspected and we found the mesh to be lying flatly in the floor of the inguinal canal. The cavity was also hemostatic. Therefore, I proceeded with closure of the external oblique fibers in a running fashion using 3-0 Vicryl. I then closed Rivera's fascia with another 3-0 Vicryl. Lastly I performed a series of deep dermal, interrupted sutures to approximate the skin edges before running a 4-0 Monocryl in a subcuticular fashion. Telfa and Tegaderm was applied as a dressing. Patient tolerated the procedure well and was allowed to awaken from her anesthetic. She was then transferred to PACU for ongoing recovery. Grafts/Implants Used: Ethicon ultra Pro mesh LOT [id number], expiration 11/12/2025 Complications None Admit VTE Documentation VTE Present on Admission: Yes VTE Mechan Device Prophylaxis: SCD's Procedures Digestive 40xxx-49xxx: 58262 Prp i/reanna init reduc >5 yr
--- NOTE | 2023-04-27 16:00 | SUR.PHASEI ---
Pt was out of bed using a bedside commode, unable to obtain pulse ox and blood pressure at 1600. Pt was in no distress.
--- NOTE | 2023-04-27 17:29 | PCM.HOSP.N ---
Hospitalist Note Attempted to see patient today at multiple points, but was unable to see her due to her surgical procedure. Will plan to see her tomorrow prior to discharge.
[2023-04-27] MEDS: 0.9% Saline Lock 10 ML Syringe IV (17:40)
--- NOTE | 2023-04-27 18:32 | DCINST_ITS ---
Discharge Instructions Diet Discharge Diet: No restrictions Activity May shower in (days): 2 Ice area for (Minutes): 20 Lifting Restrictions: No lifting greater than 10 pounds x 5 weeks postop Dressing / Incision Call your doctor if your incision/area has: Sudden Increased Bleeding, Increased Pain/ Swelling, Increased Redness, Foul Smelling Discharge and Swelling at the incision site Call your doctor if you observe: Fever of 101 or Higher Suture Line Care: Avoid Pulling/Pushing and Avoid Pinching/Bending Remove Dressing in: 2 days Cleanse incision/area with: Soap & Water Follow Up Care Please Follow Up With: Thomas Menjivar MD When: 7-10 days Test Results: Test results from this visit will be discussed in further detail at your follow- up appointment, if applicable. Discharge Plan Admission Admit Date/Time: 04/24/23 12:10 Primary Reason for Your Visit: Incarcerated inguinal hernia with bowel obstruction Attending Provider: Thomas Menjivar Primary Care Provider: Florin Aragon Consulting Providers: Ted Ty Instructions Additional Instructions / Restrictions: 1. Patient should avoid taking naltrexone with opiate pain medication 2. Please resume aspirin at 48 hours postop and Plavix at 72 hours postop Discharge Orders/Prescriptions Prescriptions: New oxycodone 5 mg Tablet 5 mg PO Q6H PRN PRN (Reason: Pain Score 6-10) 5 Days Qty: 14 0RF Continued metoprolol tartrate 25 mg tablet 12.5 mg PO BID Qty: 90 3RF irbesartan 75 mg tablet 75 mg PO DAILY Qty: 90 3RF estradiol [Estrace] 42.5 GM cream 1 dose vaginal UD dicyclomine 20 mg tablet 20 mg PO TID levothyroxine 50 mcg tablet 50 mcg PO DAILY rosuvastatin 10 mg tablet 10 mg PO QHS escitalopram oxalate 5 mg tablet 5 mg PO DAILY mirtazapine 7.5 mg tablet 7.5 mg PO QHS PRN (Reason: DEPRESSION/ANXIETY) multivitamin Tablet 1 tab PO DAILY cyanocobalamin (vitamin B-12) [Vitamin B-12] 1,000 mcg Tablet 1,000 mcg PO DAILY PRN (Reason: Nausea) calcium carbonate-vitamin D3 600 mg-5 mcg (200 unit) Tablet 1 tab PO DAILY vitamin B complex Tablet 1 tab PO DAILY budesonide 3 mg Capsule,Delayed,Extend.Release 9 mg PO DAILY ipratropium bromide 21 mcg (0.03 %) [place],Non-Aerosol 2 spray INTRANASAL Q6H PRN (Reason: CONGESTION/COUGH) diclofenac sodium 1 % gel 1 ea TOPICAL 4X/DAY coenzyme Q10 50 mg Tablet 50 mg PO DAILY melatonin 10 mg Tablet 10 mg PO QHS PRN (Reason: Sleep) thiamine HCl (vitamin B1) 100 MG tablet 100 mg PO BIDCM clopidogrel 75 mg tablet 75 mg PO DAILY Qty: 90 3RF Rx Instructions: Please resume 72 hours after discharge aspirin 81 mg Tablet,Delayed Release (Dr/Ec) 81 mg PO BREAKFAST 30 Days Qty: 30 0RF Rx Instructions: Please resume 48 hours after discharge Held naltrexone 50 mg tablet 50 mg PO DAILY PRN (Reason: alcohol withdrawal) Hold Instructions: Resume on 05/02/23. Hold while using any opioid narcotics Referrals / Follow Up: Florin Aragon MD [Primary Care Provider] - Thomas Menjivar MD [Med Staff - Active Staff] - Disposition Disposition (needs filled in before D/C Order can be placed): Home, Self Care
--- NOTE | 2023-04-27 18:57 | DS.PCM_ITS ---
Providers Date of Admission: 04/24/23 Primary Care Physician: Dr. Florin Aragon MD Consultations 04/24/23 11:56 Consult: Hospitalist Routine Consulting Provider: Ted Ty Reason for Consult: Medical Clearance EMERGENT Consult: No MD Notified: Yes Date Notified: 04/24/23 Time Notified: 11:57 Method of Notification: ED Physician Initiated Reason For Visit: SMALL BOWEL OBSTRUCTION Diagnosis Discharge Diagnosis (1) Small bowel obstruction: Status: Acute Code(s): K56.609 - Unspecified intestinal obstruction, unspecified as to partial versus complete obstruction (2) Left inguinal hernia: Status: Acute Code(s): K40.90 - Unilateral inguinal hernia, without obstruction or gangrene, not specified as recurrent (3) Mural thickening of sigmoid colon: Status: Acute Code(s): K63.9 - Disease of intestine, unspecified Plan Patient is a 77-year-old female with a presentation for acute onset left lower quadrant pain (that became migratory towards a superior medial course) and associated nausea and vomiting. Her workup suggests multiple etiologies for her symptoms including a small bowel obstruction secondary to adhesions versus a small bowel obstruction secondary to a recently incarcerated left inguinal hernia versus 1 or more of the above with concurrent mild diverticulitis. Based on patient's history and exam I suspect she most likely had a transiently incarcerated left inguinal hernia and has persistent evidence of a small bowel obstruction. With this impression, I have recommended placement of nasogastric tube and this was performed by emergency medicine. Patient was successfully advanced in a diet yesterday with regular ongoing bowel function. Her abdominal exam remains benign today. I do not appreciate any hernia contents within her left inguinal hernia. Today swift day 5 without her antiplatelet therapy and we are planning to proceed to the operating room for open inguinal hernia repair with mesh placement at about lunchtime. Procedure was discussed with patient as well as postprocedural activity restrictions. She denies any further questions at this time. Neuro: As needed Dilaudid Pulm/CV: Incentive spirometer, management of cardiac meds per hospitalist service, hold Plavix and aspirin, telemetry FEN/GI: Daily electrolytes, IV fluid changed to LR given hyperchloride EMEA, prophylactic Protonix : No present issues, but patient does communicate she had a recent UTI Heme/ID: Patient shows slight downtrend in her hemoglobin but I attribute this to hemodilution as patient most probably came in dehydrated with her frequent vomiting pre-? evaluation Endo: No current issues Proph: SCDs Dispo: Continue inpatient stay, but will reassess patient for possible discharge postoperatively Medications at Discharge Home Medications estradiol 0.01% (0.1 mg/gram) vaginal cream (Estrace) 1 dose vaginal UD [place]OR[place] 02/11/14 budesonide 3 mg capsule,delayed,extended release 9 mg PO DAILY COLITIS 07/11/22 calcium carbonate 600 mg-vitamin D3 5 mcg (200 unit) tablet 1 tab PO DAILY SUPPLEMENT 07/11/22 coenzyme Q10 50 mg tablet 50 mg PO DAILY SUPPLEMENT 07/11/22 cyanocobalamin (vitamin B-12) 1,000 mcg tablet (Vitamin B-12) 1,000 mcg PO DAILY PRN Nausea 07/11/22 diclofenac sodium 1 % topical gel 1 ea topical 4X/DAY PAIN 07/11/22 dicyclomine 20 mg tablet 20 mg PO TID IRRITABLE BOWELS 07/11/22 escitalopram oxalate 5 mg tablet 5 mg PO DAILY SUPPER 07/11/22 ipratropium bromide 21 mcg (0.03 %) nasal spray 2 spray intranasal Q6H PRN CONGESTION/COUGH 07/11/22 levothyroxine 50 mcg tablet 50 mcg PO DAILY THYROID 07/11/22 melatonin 10 mg tablet 10 mg PO QHS PRN Sleep 07/11/22 mirtazapine 7.5 mg tablet 7.5 mg PO QHS PRN DEPRESSION/ANXIETY 07/11/22 multivitamin 1 tab PO DAILY HEALTH MAINTENANCE 07/11/22 rosuvastatin 10 mg tablet 10 mg PO QHS CHOLESTEROL 07/11/22 thiamine HCl (vitamin B1) 100 mg tablet 100 mg PO BIDCM SUPPLEMENT 07/11/22 vitamin B complex 1 tab PO DAILY SUPPLEMENT 07/11/22 metoprolol tartrate 25 mg tablet 12.5 mg (1/2 x 25 mg) PO BID #90 tabs 08/09/22 naltrexone 50 mg tablet 50 mg PO DAILY PRN alcohol withdrawal 08/09/22 irbesartan 75 mg tablet 75 mg PO DAILY Blood Pressure #90 tabs 11/02/22 aspirin 81 mg tablet,delayed release 81 mg PO BREAKFAST 30 days #30 tabs 04/27/23 clopidogrel 75 mg tablet 75 mg PO DAILY #90 tabs 04/27/23 oxycodone 5 mg tablet 5 mg PO Q6H PRN PRN Pain Score 6-10 5 days #14 tabs 04/27/23 Hospital Course Operations herniorrhaphy (Left open inguinal herniorrhaphy with mesh placement 04/27/2023) Procedures None Summary of Care Provided Hospital Course: Patient is 77-year-old female was admitted via the emergency department on 04/24/2023 with complaints of left lower quadrant abdominal pain and signs and symptoms suggestive of acute bowel obstruction. Workup and, CT imaging, specifically, was suggestive of small bowel obstruction with finding of new left inguinal hernia containing fluid. Multiple attempts were made at placement of a nasogastric tube, however, patient ended up vomiting both tubes up before leaving the emergency department. Given my suspicion for a spontaneou sly reduced, previously?incarcerated left inguinal hernia causing obstruction I simply managed her expectantly. Hospital day 2 patient underwent small bowel follow-through with self?ingested contrast. She completed this without issue and in the normal expected transit time. While in the ER she had reported her last use of antiplatelet therapy has been 48 hours prior to arrival. Therefore, after conferencing with both the hospitalist service and cardiology it was determined that she was safe to have her Plavix held for a full 5 days prior to undertaking same?admission herniorrhaphy. This procedure was undertaken in uncomplicated fashion on 04/27/2023. On her return to the floor, patient's pain was manageable and she earnestly sought discharged home. Given her otherwise clinical stability/progress this this discharge request was granted after first reviewing postoperative expectations?including activity restrictions. Patient was also advised that outpatient follow-up in clinic as expected for review of wound healing. Physical Exam Const alert, oriented x3 and no apparent distress Resp normal respiratory effort GI GI Narrative: Soft, nondistended, operative dressing clean dry and intact. Minimal tenderness about the operative site. Weight / BMI Weight Weight: 131 lb 4.8 oz Body Mass Index (BMI) 24.7 ABG / Lab / Microbiology Data 04/27/23 04:25 04/27/23 04:25 Laboratory: Laboratory Results - last 24 hr 04/27/23 04:25: WBC 6.3, RBC 3.25 L, Hgb 11.5 L, Hct 34.0 L, MCV 104.6 H, MCH 35.4 H, MCHC 33.8, RDW Std Deviation 44.9 H, RDW Coeff of Alvin 11.7, Plt Count 140 L, MPV 10.2, Immature Gran % (Auto) 0.200, Neut % (Auto) 72.8 H, Lymph % (Auto) 19.9, [place] % (Auto) 6.3, Eos % (Auto) 0.5, Baso % (Auto) 0.3, Absolute Neuts (auto) 4.6, Absolute Lymphs (auto) 1.26, Nucleated RBC % 0, PT 16.7 H, INR 1.4, APTT 31.3, Sodium 145, Potassium 3.6, Chloride 120 H, Carbon Dioxide 20.0 L , Anion Gap 5, BUN 14, Creatinine 0.70, Estim Creat Clear Calc 36.68, Est GFR (MDRD) Af Amer 106, Est GFR (MDRD) Non-Af 87, BUN/Creatinine Ratio 20.1 H, Glucose 131 H, Calcium 7.9 L, Total Bilirubin 0.60, Direct Bilirubin 0.27, AST 33, ALT 24, Alkaline Phosphatase 55, Total Protein 5.5 L, Albumin 2.6 L, Glob ulin 2.9, TSH 0.94 D/C Instructions Discharge Diet: No restrictions May shower in (days): 2 Ice area for (Minutes): 20 Call your doctor if your incision/area has: Sudden Increased Bleeding, Increased Pain/ Swelling, Increased Redness, Foul Smelling Discharge and Swelling at the incision site Call your doctor if you observe: Fever of 101 or Higher Suture Line Care: Avoid Pulling/Pushing and Avoid Pinching/Bending Cleanse incision/area with: Soap & Water Please Follow Up With: Thomas Menjivar MD When: 7-10 days Meaningful Use Info Meaningful Use Diagnoses (Choose all that apply): None applicable Discharge Plan Admission Admit Date/Time: 04/24/23 12:10 Primary Reason for Your Visit: Incarcerated inguinal hernia with bowel obstruction Attending Provider: Thomas Menjivar Primary Care Provider: Florin Aragon Consulting Providers: Ted Ty Instructions Additional Instructions / Restrictions: 1. Patient should avoid taking naltrexone with opiate pain medication 2. Please resume aspirin at 48 hours postop and Plavix at 72 hours postop Discharge Orders/Prescriptions Prescriptions: New oxycodone 5 mg Tablet 5 mg PO Q6H PRN PRN (Reason: Pain Score 6-10) 5 Days Qty: 14 0RF Continued metoprolol tartrate 25 mg tablet 12.5 mg PO BID Qty: 90 3RF irbesartan 75 mg tablet 75 mg PO DAILY Qty: 90 3RF estradiol [Estrace] 42.5 GM cream 1 dose vaginal UD dicyclomine 20 mg tablet 20 mg PO TID levothyroxine 50 mcg tablet 50 mcg PO DAILY rosuvastatin 10 mg tablet 10 mg PO QHS escitalopram oxalate 5 mg tablet 5 mg PO DAILY mirtazapine 7.5 mg tablet 7.5 mg PO QHS PRN (Reason: DEPRESSION/ANXIETY) multivitamin Tablet 1 tab PO DAILY cyanocobalamin (vitamin B-12) [Vitamin B-12] 1,000 mcg Tablet 1,000 mcg PO DAILY PRN (Reason: Nausea) calcium carbonate-vitamin D3 600 mg-5 mcg (200 unit) Tablet 1 tab PO DAILY vitamin B complex Tablet 1 tab PO DAILY budesonide 3 mg Capsule,Delayed,Extend.Release 9 mg PO DAILY ipratropium bromide 21 mcg (0.03 %) [place],Non-Aerosol 2 spray INTRANASAL Q6H PRN (Reason: CONGESTION/COUGH) diclofenac sodium 1 % gel 1 ea TOPICAL 4X/DAY coenzyme Q10 50 mg Tablet 50 mg PO DAILY melatonin 10 mg Tablet 10 mg PO QHS PRN (Reason: Sleep) thiamine HCl (vitamin B1) 100 MG tablet 100 mg PO BIDCM clopidogrel 75 mg tablet 75 mg PO DAILY Qty: 90 3RF Rx Instructions: Please resume 72 hours after discharge aspirin 81 mg Tablet,Delayed Release (Dr/Ec) 81 mg PO BREAKFAST 30 Days Qty: 30 0RF Rx Instructions: Please resume 48 hours after discharge Held naltrexone 50 mg tablet 50 mg PO DAILY PRN (Reason: alcohol withdrawal) Hold Instructions: Resume on 05/02/23. Hold while using any opioid narcotics Referrals / Follow Up: Florin Aragon MD [Primary Care Provider] - Thomas Menjivar MD [Med Staff - Active Staff] - Disposition Disposition (needs filled in before D/C Order can be placed): Home, Self Care Charges/Coding Visit Charges Inpatient E&M: 16017 Disch Hosp
== END 2023-04-27 20:52 | disposition home or self-care (01) | DRG 352 ==
LOC: ED 12:00 → MS3 12:54
PROVIDERS: Anesthesiology; Admitting Provider Surgery; Emergency Provider Emergency Medicine; PCP Family Medicine; Visit Provider Surgery
PROC: 0YU60JZ Supplement Left Inguinal Region with Synthetic Substitute, Open Approach (ICD-10-PCS; principal; 2023-04-27 12:10)
DX: K40.30 Unilateral inguinal hernia, with obstruction, without gangrene, not specified as recurrent (principal); D17.79 Benign lipomatous neoplasm of other sites; E03.9 Hypothyroidism, unspecified; I10 Essential (primary) hypertension; F32.A Depression, unspecified; E78.5 Hyperlipidemia, unspecified; I25.10 Atherosclerotic heart disease of native coronary artery without angina pectoris; I25.2 Old myocardial infarction; Z95.5 Presence of coronary angioplasty implant and graft; Z90.49 Acquired absence of other specified parts of digestive tract; Z79.02 Long term (current) use of antithrombotics/antiplatelets; Z79.82 Long term (current) use of aspirin; Z79.899 Other long term (current) drug therapy; Z86.73 Personal history of transient ischemic attack (TIA), and cerebral infarction without residual deficits; Z87.891 Personal history of nicotine dependence
CPT/HCPCS: 36415; 74018; 74177; 74250; 80048; 80053; 80076; 81001; 83605; 83690; 83735; 84100; 84443; 85025; 85610; 85730; 88302; 88304; 93005; 94668; 97802; 99285; J7030; J7050; J7120; Q9967; A4216; C1781; J0744; J2405

== ENCOUNTER → 2023-10-03 | Outpatient (CLI) | payer MEDICARE, SELFPAY ==
--- NOTE | 2023-10-03 14:14 | RAD_ITS ---
STUDY: X-RAY - LEFT RADIUS AND ULNA REASON FOR EXAM: Female, 78 years old. Injury. Pain. TECHNIQUE: 2 view(s) of the forearm. COMPARISON: None. FINDINGS: There is no demonstrated soft tissue swelling. Osteopenia. Minimal displaced fracture of the distal ulna. Normal visualized ulna. RAD/Forearm 2 Views IMPRESSION: Osteopenia with distal ulnar fracture. Electronically Signed: Tha Ag MD at 15:19 EDT ,
--- NOTE | 2023-10-03 14:14 | RAD_ITS ---
STUDY: X-RAY - LEFT WRIST REASON FOR EXAM: Female, 78 years old. Fall. Injury. Pain. TECHNIQUE: 3 view(s) of the wrist were obtained. COMPARISON: None. FINDINGS: Osteopenia. Moderate to marked arthrosis of the distal radioulnar joint. Osteoarthritic changes of the radial carpal row. Marked osteoarthritic changes of the first CMC joint. Minimally displaced comminuted fracture of the distal ulna. Minimal distal forearm soft tissue swelling. RAD/Wrist min 3 Views IMPRESSION: Osteopenia with osteoarthritic changes. Distal ulnar fracture as described. Electronically Signed: Tha Ag MD at 15:21 EDT ,
== END | disposition home or self-care (01) ==
LOC: MTRAD 14:13
PROVIDERS: PCP Family Medicine; Referring Provider Nurse Practitioner Family; Visit Provider Nurse Practitioner Family
DX: S59.912A Unspecified injury of left forearm, initial encounter (principal); S69.92XA Unspecified injury of left wrist, hand and finger(s), initial encounter; W19.XXXA Unspecified fall, initial encounter
CPT/HCPCS: 73090; 73110

== ENCOUNTER → 2023-10-26 | Outpatient (CLI) | payer MEDICARE, SELFPAY ==
--- NOTE | 2023-10-26 14:34 | RAD_ITS ---
STUDY: X-RAY - THORACIC SPINE REASON FOR EXAM: Female, 78 years old. Back pain. TECHNIQUE: 3 view(s) of the thoracic spine were obtained. COMPARISON: None. FINDINGS: Marked osteopenia. Increased kyphosis. Mild thoracolumbar scoliosis. Diffuse intervertebral disc space narrowing with anterior wedge compression deformities of multiple vertebral bodies and minimal osteophyte formation diffusely. Marked vascular calcification. RAD/Thoracic Spine 3 Views IMPRESSION: Osteopenia, multiple anterior wedge compression deformities, increased kyphosis, diffuse mild spondylosis and marked vascular calcification. Electronically Signed: Tha Ag MD at 9:38 EDT ,
--- NOTE | 2023-10-26 14:36 | RAD_ITS ---
STUDY: X-RAY - LUMBAR SPINE REASON FOR EXAM: Female, 78 years old. Back pain. TECHNIQUE: 4 view(s) of the lumbar spine were obtained. COMPARISON: None FINDINGS: Marked osteopenia. Normal lordosis. Mild levoscoliosis. Normal alignment of the vertebral bodies. Diffuse moderate lower thoracic and lumbosacral facet sclerosis. Mild diffuse intervertebral disc space narrowing with minimal osteophyte formation. Marked vascular calcification. RAD/L/S Spine Min 4 Views IMPRESSION: Osteopenia with diffuse mild lumbosacral spondylosis. Electronically Signed: Tha Ag MD at 9:39 EDT ,
== END | disposition home or self-care (01) ==
PROVIDERS: PCP Family Medicine; Referring Provider Nurse Practitioner Family; Visit Provider Nurse Practitioner Family
DX: M54.9 Dorsalgia, unspecified (principal)
CPT/HCPCS: 72072; 72110

== ENCOUNTER → 2023-11-03 | Outpatient (CLI) | payer MEDICARE, SELFPAY ==
--- NOTE | 2023-11-03 12:54 | CT_ITS ---
INDICATION: STAT: T9-10, non-improved back pain s/p fall. suspect acute comp EXAMINATION: CT THORACIC SPINE - CT Spine Thoracic W/ Contrast Injection TECHNIQUE: Helically acquired images were obtained of the thoracic spine. 2D reformats were reviewed. A radiation dose optimization technique was used for this scan. IV Contrast dosage and agent: 100 mL of Isovue-300. COMPARISON: None. FINDINGS: VERTEBRAE: Diffuse demineralization of the thoracic vertebrae. Minimal loss of height of the T5 vertebrae. 50% loss of height of the T8 vertebrae without acute fracture. Multilevel disc space narrowing.. VERTEBRAL ALIGNMENT: Unremarkable. There is preservation of the normal thoracic kyphosis. DISCS: Multilevel anterior spondylosis. VISUALIZED THORAX: Atherosclerotic calcification of the aortic arch and descending thoracic aorta. Coronary artery calcification. Lung art are clear. CT/Spine Thoracic WITH Contrast IMPRESSION: Increased kyphosis with approximately 50% loss of height of the T8 vertebrae without evidence of acute fracture. Loss of height of the T5 vertebrae. Multilevel disc space narrowing and spondylosis. Electronically Signed: Felipe Novak MD at 13:43 EDT ,
[2023-11-03 13:20] LABS: CREATININE FINGERSTICK 1.4 mg/dL (0.55-1.02)
== END | disposition home or self-care (01) ==
LOC: CT 12:51
PROVIDERS: PCP Family Medicine; Referring Provider Family Medicine; Visit Provider Family Medicine
DX: S22.000A Wedge compression fracture of unspecified thoracic vertebra, initial encounter for closed fracture (principal)
CPT/HCPCS: 72129; Q9967; A4216

== ENCOUNTER → 2024-01-04 | Outpatient (CLI) | payer MEDICARE, SELFPAY ==
--- NOTE | 2024-01-04 11:55 | US_ITS ---
STUDY: RENAL ULTRASOUND - COMPLETE REASON FOR EXAM: Female, 78 years old. hematuria without infection TECHNIQUE: Ultrasound evaluation of the kidneys was performed with real-time and static berger-scale imaging. COMPARISON: None. FINDINGS: RIGHT KIDNEY: Normal location of the right kidney, which is normal in size. The right kidney measures 8.9 cm. There is a normal cortex of the right kidney. The renal cortex measures 1.1 cm. There is no right renal mass or cyst. There are no right renal calculi. There is no right hydronephrosis. DISTAL RIGHT URETER: There is non-visualization of the distal right ureter. There is no demonstrated right ureterovesical junction calculus. There is a visualized right ureteral jet. LEFT KIDNEY: Normal location of the left kidney, which is normal in size. The left kidney measures 9.8 cm. There is a normal cortex of the left kidney. The renal cortex measures 1.3 cm. 4.5 cm exophytic cyst in the upper pole of the left kidney. 2.5 cm parapelvic cyst in the midsection left kidney. There are no left renal calculi. There is no left hydronephrosis. DISTAL LEFT URETER: There is non-visualization of the distal left ureter. There is no demonstrated left ureterovesical junction calculus. There is a visualized left ureteral jet. BLADDER: The distended urinary bladder has a volume of 50 ml. The empty urinary bladder has a volume of ml. There is a normal wall thickness of the distended urinary bladder. There is no demonstrated mass within the urinary bladder. There are no demonstrated bladder calculi. US/Kidney and Bladder IMPRESSION: No hydronephrosis due to distal obstruction. Left renal cysts including a 4.5 cm cyst in the upper pole. Electronically Signed: Jose Hennessy MD at 9:21 EDT ,
== END | disposition home or self-care (01) ==
PROVIDERS: PCP Family Medicine; Referring Provider Family Medicine; Visit Provider Family Medicine
DX: R31.9 Hematuria, unspecified (principal)
CPT/HCPCS: 76770

== ENCOUNTER → 2024-01-23 | Outpatient (CLI) | payer MEDICARE, SELFPAY ==
--- NOTE | 2024-01-23 14:50 | MRI_ITS ---
EXAM: MR LUMBAR SPINE WITHOUT INTRAVENOUS CONTRAST CLINICAL INDICATION: COMPRESSION FX SPONDYLOSIS, fall from bed 09/06 TECHNIQUE: Multiplanar and multisequence MR images of the lumbar spine without intravenous contrast. COMPARISON: No relevant prior studies available. FINDINGS: VERTEBRAE: Alignment of the lumbar vertebral bodies is normal. Normal vertebral body height. No bone marrow edema. SPINAL CORD: Normal. Normal position and signal intensity of the conus medullaris. SOFT TISSUES: Normal. KIDNEYS AND URETERS: 5 cm simple appearing left renal cyst. No specific follow-up indicated. DISCS/SPINAL CANAL/NEURAL FORAMINA: L1-L2: Normal. Normal disc height and morphology. Normal spinal canal and lateral recesses. Normal neuroforamina. L2-L3: Normal. Normal disc height and morphology. Normal spinal canal and lateral recesses. Normal neuroforamina. L3-L4: Normal. Normal disc height and morphology. Normal spinal canal and lateral recesses. Normal neuroforamina. L4-L5: No significant disc space narrowing. Minor disc bulging and prominent facet arthropathy and ligamentous hypertrophy results in moderate spinal stenosis and mild to moderate right and mild left neural foraminal narrowing. L5-S1: Prominent facet arthropathy results in mild to moderate right and mild left neural foraminal narrowing. Normal spinal canal and lateral recesses. MRI/Spine Lumbar (Routine) IMPRESSION: Significant spinal stenosis at the L4-5 level predominantly related to facet arthropathy and ligamentous hypertrophy. Electronically Signed: Satish Naylor MD at 16:18 EDT ,
--- NOTE | 2024-01-23 14:59 | MRI_ITS ---
EXAM: MR THORACIC SPINE WITHOUT INTRAVENOUS CONTRAST CLINICAL INDICATION: VERTEBRAL COMPRESSIONS FX, fell out of bed 09/06 TECHNIQUE: Multiplanar and multisequence MR images of the thoracic spine without intravenous contrast. COMPARISON: CT thoracic spine 11/03/2023 FINDINGS: VERTEBRAE: Compression fracture deformities of the T8 and T9 vertebral bodies are again seen. The amount of which compression deformity of T8 appears increased from prior study. There is residual bone marrow edema within the T8 and T9 vertebral bodies consistent with prior injury. The deformity of the T8 and T9 vertebral bodies results in accentuated thoracic kyphosis. There is chronic superior endplate deformity of the T6 vertebral body. No scoliosis. DISCS/SPINAL CANAL/NEURAL FORAMINA: Normal. No disc herniation. No spinal or neural foraminal stenosis. SPINAL CORD: Normal. Normal in signal and morphology. Normal conus medullaris. SOFT TISSUES: Normal. MRI/Spine Thoracic (Routine) IMPRESSION: Compression fractures of the T8 and T9 vertebral bodies with mild increase in the wedge compression of T8. Electronically Signed: Satish Naylor MD at 12:47 EDT ,
== END | disposition home or self-care (01) ==
PROVIDERS: PCP Family Medicine; Referring Provider Anesthesiology; Visit Provider Anesthesiology
DX: M47.816 Spondylosis without myelopathy or radiculopathy, lumbar region (principal); M48.54XA Collapsed vertebra, not elsewhere classified, thoracic region, initial encounter for fracture
CPT/HCPCS: 72146; 72148

== ENCOUNTER → 2024-01-26 | Outpatient (CLI) | payer MEDICARE, SELFPAY ==
--- NOTE | 2024-01-25 | CYSPIN_PTH ---
PATIENT: CRISTINO MATA [facility] U[id number] AGE/SX: 78/F ROOM: RE01/26/[address]: Dr. Briana Newell MD : 1945 BED: DIS: 01/26/2024 SPEC #: [id number] RECD: 01/26/24 13:45 STATUS: MILO REJay #: [id number] BRIANNA: 01/25/24 00:[address]: Briana Newell DEPT: CYTOLOGY RECD BY: Vee Hamlin ENTERED: 01/26/24 13:45 SP TYPE: CYSPIN FL OTHR DR: Dr. Florin Aragon MD Tissues: Urine Procedures: Pap Stain (control) Special Stain Group II Cytospin Fluid HEADER OPERATION: Not noted PRE-OP DIAGNOSIS: Gross hematuria TISSUE SUBMITTED: Urine for cytology DIAGNOSIS CYTOLOGY Urine for cytology (cytospin): Negative for high grade urothelial carcinoma (NHGUC), Patience System Category II. See comment. EBONY/ 01/27/2024 COMMENT The specimen predominantly consists of squamous epithelial cells. CYTOLOGY STUDY Slides are reviewed. CYTOLOGY GROSS Received is 60 ml of dark-gold cloudy fluid labeled with the patient's name and and designated per the requisition as urine. Submitted for cytology preparation. Mr 01/26/2024 TC:4 CPT: 12040
[2024-01-26 13:09] LABS: Cytology, Body Fluid / CSF SEE PATHOLOGY REPORT
== END | disposition home or self-care (01) ==
LOC: LABSPEC 12:17
PROVIDERS: PCP Family Medicine; Referring Provider Urology; Visit Provider Urology
DX: R31.0 Gross hematuria (principal)
CPT/HCPCS: 88108; 88313

== ENCOUNTER 2024-01-27 14:00 | Outpatient (RCR) | payer MEDICARE, SELFPAY ==
--- NOTE | 2023-11-20 21:57 | HP.PTEVAL_ITS ---
Patient's Visit Information Visit Information Visit Information: CRISTINO NOLAN is a 78 year old F referred to Physical Therapy by SHE Espinoza with a diagnosis of BACK PAIN. Date of Evaluation: 11/18/23 Physical Therapist: Bell Khan PT, Cert MDT Visit Plan Frequency: 2x /Week Duration: 4-6 Weeks Plan: COMPRESSION FX. *RECENT L UE FX. *VERY RECENT LOSS OF OCTOBER 2023 Start very slow and in comfortable ROM and intensity only. Neutral Spine Core Stability Exercises and Yefri LE Hip Flexor, Hamstring and Calf Stretching to help reduce stress to the Lumbar Spine with all Daily Activities. Yefri LE Strengthening. Gentle UE ROM and Strengthening. Instruction in Proper Posture Control, Body Mechanics, and Appropriate Activity Modifications. HEP Instruction. Subjective Subjective: Work/Leisure: RETIRED. 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 Present symptoms: YEFRI MID BACK PAIN THAT WRAPS AROUND HER RIB CAGE TO THE FRONT. SOME YEFRI SHLD PAIN. DENIES YEFRI UE AND LE NUMBNESS AND TINGLING. Present since: ABOUT 4 WEEKS AGO Pain Scale: WORST 9/10, LEAST 4/10 Currently: 4/10 Is it getting better, worse or staying the same: GETTING A LITTLE BETTER Commenced as a result of: APPARENT FALL OUT OF BED. STATES HER SON HEARD HER FALL AT ABOUT 11PM AND HE CAME IN AND SHE WAS ON THE FLOOR NEAR THE BED. Symptoms at onset: PAIN IN THE SAME PLACE BUT WORSE AND COULDN'T GET OUT OF BED BY HERSELF. SON DROVE HER HERE TO PT TODAY BUT SHE HAS DONE A LITTLE DRIVING LATELY. Worse: RISING FROM SITTING, LIFTING THINGS BUT TRYING NOT TO LIFTING ANYTHING TOO HEAVY, GETTING INTO BED AND TRYING TO LAY DOWN ON SIDE, TWISTING AND TURNING, WALKING HURTS A LITTLE BIT, COUGHING, SNEEZING, DEEP BREATHING. Better: SITTING IN A COMFORTABLE CHAIR, SOMETIMES LAYING DOWN Disturbed sleep: NOT REALLY Previous history/Previous treatment: HISTORY OF EPISODIC BACK PAIN SOMETIMES HELPED WITH CHIROPRACTIC AND SOMETIMES HELPED WITH PT. NO BACK SURGERY OR INJECTIONS. Treatment this episode: PT CONSULT. CONSULT WITH DR. RIVERA AT [facility]. SHE REPORTS SHE TOLD HIM SHE HAD PT SET UP AND HE TOLD HER TO GO AHEAD AND TRY PT AND HE WANTS TO ORDER AN MRI. FOLLOW UP PLANNED WITH DR. RIVERA IN ABOUT [address] MCCANN X 2. ALSO RE[address] SEEING DR. SUGGS. SHE STATES ONE OF HER DR'S SENT HER TO THE [facility] BUT WHEN SHE GOT THERE THEY COULDN'T SEE HER BECAUSE THEY DIDN'T HAVE HER CAT SCAN RESULTS. SHE REPORTS SHE DIDN'T RE- SCHEDULE IT AND SHE DOESN'T THINK SHE IS GOING TO. SHE REPORTS [facility] IS AWARE SHE DID NOT GET SEEN AT [facility]. Gait: PATIENT REPORTS SHE DOESN'T USE ANY AD'S AND SHE HASN'T HAD ANY MORE FALLS. Bowel or Bladder Dysfunction: NO Unexplained weight loss: NO Imagin11/03/23 CAT SCAN RESULTS-IMPRESSION: Increased kyphosis with approximately 50% loss of height of the T8 vertebrae without evidence of acute fracture. Loss of height of the T5 vertebrae. Multilevel disc space narrowing and spondylosis. PMH/Recent major surgery: Osteopenia. Fracture of distal end of left ulna Essential hypertension Non-STEMI (non-ST elevated myocardial infarction) History of CVA (cerebrovascular accident) History of hypertension History of hernia surgery ~04/2023 Hx of bilateral cataract extraction ~12/2022 Status post inguinal herniorrhaphy using synthetic patch Hx laparoscopic cholecystectomy History of coronary artery stent placement OTHER - RECENT L UE FX BEFORE THIS RECENT FALL - PATIENT REPORTS IT IS HEALED AND SHE ISN'T HAVING PAIN IN THE L UE ANYMORE. PATIENT ALSO RECENTLY LOST HER JUST OCTOBER 29 2023 WHILE IN A HOSPICE FACILITY IN [place] Objective Objective: Sitting/Standing Posture: INCREASED KYPHOSIS. NO RELEVANT LUMBAR LATERAL SHIFT. FH. RSH'S. Active Correction of posture: BETTER. DOES NOT MAINTAIN. Other Observations: INDEP GAIT INTO PT. NO LOB. FAIR CADANCE. UE ASSIST NEEDED FOR SIT TO STAND TRANSFER. TRANSFERS ARE GUARDED. Sensory deficit: YEFRI UE LIGHT TOUCH SENSATION GROSSLY INTACT AND SYMMETRICAL ROM deficit: YEFRI UE ACTIVE ELEVATION LIMITED TO ABOUT 125 DEG AND C/O BACK PAIN WHEN RAISING ARMS. YEFRI LE HIP FLEXOR, HIP ROTATOR, HS AND CALF TIGHTNESS. Motor deficit: L UE FX HISTORY... YEFRI KNEES AND ANKLES 4/5 AND NO PAIN WITH MMT'ING. R HIP 4-/5, L HIP 3+/5. YEFRI SHL'S 3+/5. MMT NOT PERFORMED ON UE'S. Lumbar mvmt loss: flex - MIN ext - NII R SG - MOD L SG - MOD Thoracic Mvmt Loss: Flex: Mod Ext: Nii Yefri Rot: Mod SPINE TESTING WAS DONE WITH CAUTION AND PATIENT HAD C/O PAIN WITH MVMT ALL PLANES BUT NW A RESULT. Core strength: Poor Palpation: TENDERNESS WITH PALPATION OF MID THORACIC SPINE AND LUMBAR SPINE REGIONS. INCREASED MUSCLE TONE YEFRI PARASPINALS. R POSTERIOR HIP TENDERNESS AND L ELBOW TENDERNESS AND L UE BRUISING AND TENDERNESS. OTHER: ABLE TO FULLY FLEX NECK BUT THIS PROVOKES MILD YEFRI RIB PAIN. TREATMENT: NEUROMUSCULAR REEDUCATION - RETRAINING OF MVMT AND POSTURE FOR SITTING, LYING AND STANDING ACTIVITIES. Balance/Special Test Scores Oswestry Low Back Score: 25 Goals Goal 1:: DECREASE C/O SPINE PAIN BY AT LEAST 50% TO EASE ADL'S Goal Time Frame: 6-8 Weeks Goal 2:: INCREASE PAINFREE SPINE ROM ALL PLANES TO EASE ADL'S Goal Time Frame: 4-6 Weeks Goal 3:: INCREASE PAINFREE UE AND LE ROM TO EASE ADL'S Goal Time Frame: 6-8 Weeks Goal 4:: INCREASE FUNCTIONAL UE AND LE STRENGTH TO AID ADL'S. Goal Time Frame: 6-8 Weeks Goal 5:: PATIENT WILL BE INDEP WITH A HEP FOR CONTINUED IMPROVEMENT ONCE FORMAL PHYSICAL THERPAY CONCLUDES. Goal Time Frame: 6-8 Weeks Rehabilitation Potential Physical Therapy Diagnosis: THIS PATIENT PRESENTS TO PT WITH DECREASED SPINE ROM ALL PLANES, CORE WEAKNESS, UE WEAKNESS, LE WEAKNESS, U AND LE TIGHTNESS AND HYPOMOBILITY. Rehabilitation Potential: Good Anticipated Interventions Patient/Client Instruction: Educate patient on: Condition, Plan of Care and Risk Factors For the Purpose of:: To improve self management Therapeutic Exercise to Include: Strength training, Postural training, Flexibilty training, Gait and locomotor training, Neuromotor development and Dynamic Lumbar Stabilization For the Purpose of:: To decrease pain, To improve muscle performance and motor function, To increase tolerance to activity/condition/position, To improve ability of physical actions for home/community/work/leisure, To improve gait and locomotor functions and To increase flexibility/ROM Cryotherapy (ice pack, ice massage): Yes Thermo therapy (hot pack): Yes For the Purpose of:: To decrease pain, To decrease swelling/inflammation and To improve nutrient delivery to tissue Text: Thank you for the opportunity to evaluate your patient. For Medicare and Medicare HMO plans, please review the plan of care and approve it. It will need to be FAXED BACK to us at [phone] for Medicare purposes. For Medicare only, by signing this I certify the plan of care. Please let me know if there are questions or concerns regarding this plan of care. Physician Signature: Date:
--- NOTE | 2023-12-29 14:51 | HP.PTREVAL_ITS ---
Re-Evaluation Intro: Marta Rmoo, SABINA-C, It has been my pleasure to treat CRISTINO NOLAN over the last 11 visits for BACK PAIN. Please see the progress note below for an update on the physical therapy plan of care! Subjective Subjective: MRI OF BACK PENDING TUESDAY. HAS HAD MORE PAIN IN RIBS AND UPPER ARMS OVER THE PAST MONTH BUT STATES SHE DOES NOT THINK IT IS DUE TO THE THERAPY. SHE DENIES PAIN DURING THE EX'S. SHE STATES SHE THINKS SHE NEEDS TO SIT LESS AN D STATES HER BED IS LUMPY. PATIENT REPORTS SHE CAN DO MORE AND MOVE BETTER NOW THAN BEFORE SHE STARTED THERAPY. SHE REPORTS SHE CAN GET OUT OF BED BETTER AND DRIVE BETTER. SHE STATES SHE ISN'T AFRAID OF GETTING OUT OF BED BY HERSELF NOW EITHER. SHE STATES SHE WOULD LIKE TO CONTINUE PT AND SHE HAS A [employer] THAT SHE HAS USED IN THE PAST AND WOULD LIKE TO GET BACK TO BEING ABLE TO USE THE MACHINES. Objective Objective/Function: THIS PATIENT IS MAKING SLOW PROGRESS WITH PT. SHE IS AMBULATING WITH INCREASED CADANCE AND TRANSFERING WITH LESS GUARDING. SHE IS ABLE TO TRANSFER INDEP'LY FROM SIT TO STAND WITHOUT UE ASSIST NOW. SHE IS HOWEVER REPORTING MORE RIB AND ARM PAIN FOR NO APPARENT REASON. UPON EXAM TODAY, MEASUREMENTS ARE SIMILAR TO INITAL EVAL: Sensory deficit: YEFRI UE LIGHT TOUCH SENSATION GROSSLY INTACT AND SYMMETRICAL ROM deficit: YEFRI UE ACTIVE ELEVATION LIMITED TO ABOUT 125 DEG AND C/O MILD BACK PAIN WHEN RAISING ARMS. YEFRI LE HIP FLEXOR, HIP ROTATOR, HS AND CALF TIGHTNESS. Motor deficit: L UE FX HISTORY... YEFRI KNEES AND ANKLES 4/5 AND NO PAIN WITH MMT'ING. YEFRI HIPS 4-/5. YEFRI SHL'S 4-/5. C/O MILD INCREASED BACK PAIN WITH HIP AND SHLD TESTING BUT NW A RESULT. Lumbar mvmt loss: flex - NIL ext - MOD TO NII R SG - MOD L SG - MOD Thoracic Mvmt Loss: Flex: Mod Ext: Nii Yefri Rot: Mod SPINE TESTING WAS DONE WITH CAUTION AND PATIENT HAD C/O PAIN WITH MVMT ALL PLANES BUT NW A RESULT. Core strength: Poor Palpation: TENDERNESS WITH PALPATION OF MID THORACIC SPINE TODAY AND INCREASED MUSCLE TONE YEFRI PARASPINALS. OTHER: ABLE TO FULLY FLEX NECK BUT THIS PROVOKES MILD YEFRI RIB PAIN. Plan Plan Plan: *CHECK 01/02/24 MRI RESULTS AND ANY PHYSICIAN RESTRICTIONS THAT FOLLOW* CONT PT 2X'S A WK X 8-10 VISITS PROGRESSING BACK TO MACHINES IF ABLE TO SAFELY. COMPRESSION FX. *RECENT L UE FX. *VERY RECENT LOSS OF OCTOBER 2023 Start very slow and in comfortable ROM and intensity only. Neutral Spine Core Stability Exercises and Yefri LE Hip Flexor, Hamstring and Calf Stretching to help reduce stress to the Lumbar Spine with all Daily Activities. Yefri LE Strengthening. Gentle UE ROM and Strengthening. Instruction in Proper Posture Control, Body Mechanics, and Appropriate Activity Modifications. HEP Instruction. Balance/Gait/Functional tests Balance/Special Test Scores Oswestry Low Back Score: 20 Goals Goals Goal 1:: DECREASE C/O SPINE PAIN BY AT LEAST 50% TO EASE ADL'S Goal Time Frame: 6-8 Weeks Goal Progress: Progressing Goal 2:: INCREASE PAINFREE SPINE ROM ALL PLANES TO EASE ADL'S Goal Time Frame: 4-6 Weeks Goal Progress: Progressing Goal 3:: INCREASE PAINFREE UE AND LE ROM TO EASE ADL'S Goal Time Frame: 6-8 Weeks Goal Progress: Progressing Goal 4:: INCREASE FUNCTIONAL UE AND LE STRENGTH TO AID ADL'S. Goal Time Frame: 6-8 Weeks Goal Progress: Progressing Goal 5:: PATIENT WILL BE INDEP WITH A HEP FOR CONTINUED IMPROVEMENT ONCE FORMAL PHYSICAL THERPAY CONCLUDES. Goal Time Frame: 6-8 Weeks Goal Progress: Progressing Anticipated Interventions Anticipated Interventions Patient/Client Instruction: Educate patient on: Condition, Plan of Care and Risk Factors For the Purpose of:: To improve self management Therapeutic Exercise to Include: Strength training, Postural training, Flexibilty training, Gait and locomotor training, Neuromotor development and Dynamic Lumbar Stabilization For the Purpose of:: To decrease pain, To improve muscle performance and motor function, To increase tolerance to activity/condition/position, To improve ability of physical actions for home/community/work/leisure, To improve gait and locomotor functions and To increase flexibility/ROM Cryotherapy (ice pack, ice massage): Yes Thermo therapy (hot pack): Yes For the Purpose of:: To decrease pain, To decrease swelling/inflammation and To improve nutrient delivery to tissue Re-Evaluation Ending Re-evaluation ending: Please do not hesitate to contact me at [phone] by phone or if you have questions or concerns regarding this new plan of care! Sincerely, Bell Khan, PT, Cert MDT
--- NOTE | 2024-05-22 10:40 | HP.PT.NRP ---
Patient Information Patient Information: CRISTINO NOLAN was seen in my office for initial evaluation on 11/18/23. The following Plan of Care was established for this patient: POC Established Initial Frequency: 2x /Week Initial Duration: 4-6 Weeks Anticipated Interventions Patient/Client Instruction: Educate patient on: Condition, Plan of Care and Risk Factors For the Purpose of:: To improve self management Therapeutic Exercise to Include: Strength training, Postural training, Flexibilty training, Gait and locomotor training, Neuromotor development and Dynamic Lumbar Stabilization For the Purpose of:: To decrease pain, To improve muscle performance and motor function, To increase tolerance to activity/condition/position, To improve ability of physical actions for home/community/work/leisure, To improve gait and locomotor functions and To increase flexibility/ROM Cryotherapy (ice pack, ice massage): Yes Thermo therapy (hot pack): Yes For the Purpose of:: To decrease pain, To decrease swelling/inflammation and To improve nutrient delivery to tissue Last Seen Last Seen: This patient was last seen in our office 01/27/24. Pertinent comments regarding their Physical therapy will appear below: It has been my pleasure to see this patient for a total of 13 visits. This patient has not returned to Physical Therapy for more visits and is appropriate to return to MD for further follow-up as needed. At this point I will be discontinuing this patient from physical therapy. I would be happy to see this patient again in the future if found appropriate by the physician. Thank you! Bell Khan, PT, Cert MDT Balance/Gait/Functional tests Balance/Special Test Scores Oswestry Low Back Score: 20
== END 2024-01-27 19:00 | disposition home or self-care (01) ==
LOC: PT 14:00
PROVIDERS: PCP Family Medicine; Referring Provider Nurse Practitioner Family; Visit Provider Nurse Practitioner Family
DX: M54.9 Dorsalgia, unspecified (principal); Z91.81 History of falling
CPT/HCPCS: 97110; 97112; 97162; 97530

== ENCOUNTER → 2024-02-10 | Outpatient (CLI) | payer MEDICARE, SELFPAY ==
--- NOTE | 2024-02-10 09:37 | BI_ITS ---
MAMMOGRAPHY - BILATERAL SCREENING REASON FOR EXAM: Female, 78 years old. Routine annual screening examination. PERTINENT HISTORY: Grandmother with breast cancer. TECHNIQUE: Digital bilateral breast lawanda (3D mammographic acquisition) in the CC and MLO projections. 2-D mediolateral oblique (MLO) and craniocaudad (CC) views of both breasts were obtained. CAD: Full Field Digital Mammography with Computer Added Detection was performed. COMPARISON: Comparison is made with prior study dated February 04, 2023 and December 04, 2020. FINDINGS: Breast Composition: The breasts are almost entirely fatty. There are no dominant masses or suspicious calcifications. No other significant abnormalities are identified. There has been no significant change since the prior study. BI/SCRN MAMM (CAD)W/LAWANDA BILAT IMPRESSION: Stable bilateral screening mammogram. Yearly follow-up mammogram recommended. (A) ASSESSMENT CATEGORY: BIRADS Category 1: Negative. A letter regarding these results will be sent to the patient by the facility within 30 days. Approximately 10% of breast cancers are not detected by mammography. A normal mammogram should not delay biopsy of a clinically suspicious abnormality. [id number] Electronically Signed: Felipe Novak MD at 10:32 EDT ,
== END | disposition home or self-care (01) ==
LOC: OPBI 09:36
PROVIDERS: PCP Family Medicine; Referring Provider Family Medicine; Visit Provider Family Medicine
DX: Z12.31 Encounter for screening mammogram for malignant neoplasm of breast (principal)
CPT/HCPCS: 77063; 77067

== ENCOUNTER → 2024-02-17 | Outpatient (CLI) | payer MEDICARE, SELFPAY ==
--- NOTE | 2024-02-17 10:47 | BD_ITS ---
STUDY: DUAL ENERGY X-RAY ABSORPTIOMETRY / DXA REASON FOR EXAM: Female, 78 years old. 733.00OsteoporosisBONE DENSITY REASON FOR EXAM TECHNIQUE: Bone Mineral Density (BMD) measurements of lumbar spine and bilateral hips were obtained. COMPARISON: Comparison is made with prior study December 24, 2020. FINDINGS: Lumbar Spine (L1-L4): g/cm2 (0.908) / T-score (-1.3) / Z-score (1.2) Findings are suggestive of osteopenia with a low fracture risk. Left Femur Total: g/cm2 (0.679) / T-score (-2.2) / Z-score (-0.3) Left Femoral Neck: g/cm2 (0.589) / T-score (-2.3) / Z-score (-0.2) Right Femur Total: g/cm2 (0.718) / T-score (-1.8) / Z-score (0.0) Right Femoral Neck: g/cm2 (0.570) / T-score (-2.5) / Z-score (-0.4) The T-Scores on the most recent prior examination were: Lumbar Spine (L1-L4): There has been worsening of bone density since the previous examination. Left Femur Total: which represents a worsening of 14.4%. Right Femur Total: which represents a worsening of 12.3%. BD/Dexa Bone Density Study IMPRESSION: The patient is considered osteopenic as outlined below according to World Sonny Organization (WHO) criteria with a high fracture risk. There has been worsening of bone density since the previous examination. Reference Information: The T-score is the number of standard deviations above or below the standard which is normal for young adults at their peak bone mineral density. The World Health Organization (WHO) interprets the T-scores as follows: Above -1 Normal bone density Between -1 and -2.5 Osteopenia Equal to / or below -2.5 Osteoporosis As a practical clinical guideline, osteopenia may be graded as follows: Mild -1 through -1.5 Moderate -1.6 through -2.0 Severe -2.1 through -2.4 The Z-score is the number of standard deviations above or below age-matched controls. A Z-score of less than -1.5 would be considered abnormal. References: 1. NIH Osteoporosis and Related Bone Diseases www osteo.org 2. International Society for Clinical Densitometry www iscd.org 3. National Osteoporosis Foundation www nof.org Electronically Signed: Felipe Novak MD at 12:27 EDT ,
== END | disposition home or self-care (01) ==
LOC: OPBD 10:47
PROVIDERS: PCP Family Medicine; Referring Provider Family Medicine; Visit Provider Family Medicine
DX: M81.0 Age-related osteoporosis without current pathological fracture (principal)
CPT/HCPCS: 77080

== ENCOUNTER → 2024-02-20 | Outpatient (CLI) | payer MEDICARE, SELFPAY ==
--- NOTE | 2024-02-20 12:30 | US_ITS ---
INDICATION: fluid in endometrium EXAMINATION: Ultrasound US Pelvis Non OB Limited With Transvaginal Imaging TECHNIQUE: Transabdominal and transvaginal (for optimal evaluation of the adnexa) pelvic ultrasound was performed. Grayscale, spectral waveform, and color flow Doppler evaluation of the adnexa. COMPARISON: No relevant prior comparison study available FINDINGS: UTERUS: Anteverted. The uterus measures 5.3 x 3.9 x 2.1 cm. There is no uterine mass. The endometrial stripe measures 8 mm in AP diameter which is borderline for postmenopausal patient. There is unremarkable. Within the endometrial cavity measuring about 5 mm in thickness. RIGHT OVARY: Not visualized. LEFT OVARY: 2.7 x 2.1 x 1.3 cm. Non-enlarged, normal echogenicity. There is normal arterial inflow and venous outflow present in the left ovary. FREE FLUID: None. US/Pelvic w/ Transvaginal IMPRESSION: 1. Borderline thickening of the endometrium with nonspecific fluid within the endometrial cavity. Follow-up examination and INDUSTRIAL ECOLOGY TECHNICIAN consult are recommended. 2. Nonvisualization of the right ovary. Electronically Signed: Dylon Brooks MD at 16:03 EDT ,
== END | disposition home or self-care (01) ==
LOC: US 12:30
PROVIDERS: PCP Family Medicine; Referring Provider Nurse Practitioner Women's Health; Visit Provider Nurse Practitioner Women's Health
DX: R93.89 Abnormal findings on diagnostic imaging of other specified body structures (principal)
CPT/HCPCS: 76830; 76856

== ENCOUNTER → 2024-03-01 | Outpatient (CLI) | payer MEDICARE, SELFPAY ==
[2024-03-01 18:22] LABS: Troponin-I HS 114 pg/mL (3.0-54.0)
== END | disposition home or self-care (01) ==
PROVIDERS: PCP Family Medicine; Visit Provider Family Medicine
DX: M79.601 Pain in right arm (principal); M79.602 Pain in left arm
CPT/HCPCS: 36415; 84484

== ENCOUNTER → 2024-03-13 | Outpatient (CLI) | payer MEDICARE, SELFPAY ==
[2024-03-13 11:53] LABS: Absolute Lymphocyte Count 1.19 X10^3/uL (0.83-4.51); Absolute Neutrophil Count 3.6 X10^3/uL (2.0-7.7); Basophil# 0.03 X10^3/uL; Basophil% 0.6 % (0-1); Eosinophil# 0.09 X10^3/uL; Eosinophils% 1.7 % (0-5); Hematocrit 39.1 % (37-47); Lymphocyte # 1.19 X10^3/ul (0.83-4.51); Mean Corp Hgb Conc 33.2 g/dL (32-36); Mean Corpuscular Hgb 34.6 pg (27.0-32.0); Mean Platelet Vol. 10.3 fl (6.2-12.0); Monocyte# 0.49 X10^3/uL; Monocyte% 9.1 % (0-10); NRBC Flagged by Analyzer 0 % (0-5); Neutrophil % 66.4 % (47-70); Platelet Count 199 K/mm3 (150-450); RBC Distribution Width CV 13.1 % (11.6-14.6); RBC Distribution Width SD 50.6 fl (35.1-43.9); Red Blood Count 3.76 M/mm3 (4.2-5.4); White Blood Count 5.4 K/mm3 (4.4-11.0)
[2024-03-13 12:12] LABS: BNP,B-Type NATRIURETIC PEPTIDE 137.8 pg/mL (0-100)
[2024-03-13 12:22] LABS: AST(SGOT) 36 U/L (15-37); Alanine Aminotransfer ALT/SGPT 29 U/L (13-56); Albumin, Serum 3.1 g/dL (3.2-5.0); Alkaline Phosphatase 117 U/L (45-117); Anion Gap 3 (5-15); BUN 15 mg/dL (7-18); BUN/Creat Ratio 16.3 RATIO (10-20); Chloride 109 mmol/L (98-107); Creatinine, Serum 0.92 mg/dL (0.55-1.02); EST Glomerular Filtration Rate 63 mL/min (>60); Est Glom Filt Rate - Afr Amer 76 mL/min (>60); Globulin 3.2 g/dL (2.2-4.2); Glucose 127 mg/dL (74-106); Potassium 3.9 mmol/L (3.5-5.1); Protein, Total 6.3 g/dL (6.4-8.2); Sodium Level 143 mmol/L (136-145)
[2024-03-13 13:36] LABS: Troponin-I HS 12 pg/mL (3.0-54.0)
== END | disposition home or self-care (01) ==
LOC: LAB 10:57
PROVIDERS: PCP Family Medicine; Referring Provider Nurse Practitioner Family; Visit Provider Nurse Practitioner Family
DX: R79.89 Other specified abnormal findings of blood chemistry (principal); R06.00 Dyspnea, unspecified; Z95.5 Presence of coronary angioplasty implant and graft
CPT/HCPCS: 36415; 80053; 83880; 84443; 84484; 85025

== ENCOUNTER 2024-04-25 11:13 | Outpatient (RCR) | payer SELFPAY | END 2024-05-15 23:59 | LOC: NS 11:13 | PROVIDERS: PCP Family Medicine; Referring Provider Family Medicine; Visit Provider Family Medicine | DX: Z71.3 Dietary counseling and surveillance (principal); M81.0 Age-related osteoporosis without current pathological fracture | CPT/HCPCS: 97802 ==

== ENCOUNTER → 2024-04-27 | Outpatient (CLI) | payer MEDICARE, SELFPAY ==
--- NOTE | 2024-04-30 07:52 | STRESSREP ---
Stress Test Report Pharmacologic myocardial perfusion stress test. 78-year-old lady with a history of chest pain Resting EKG demonstrates sinus rhythm with a rate of 80 bpm. Resting blood pressure is 130/62 mmHg. 0.4 mg of regadenoson was infused per usual protocol followed by rapid intravenous saline flush injection. Continuous EKG monitoring was performed. The maximum heart rate was 114 bpm which was 79% of max impacted heart rate the maximum workload was 1 metabolic equivalent. At rest there were no ST or T wave changes noted to suggest ischemia and at peak infusion nonspecific ST changes were noted which did not meet the criteria for ischemia. No clinical angina is noted. The final blood pressure was 128/70 mmHg. Myocardial perfusion protocol. 12 mCi of technetium 99m sestamibi was injected at rest. 0.4 mg of regadenoson was infused per usual protocol. At peak infusion 36 mCi of technetium 99m sestamibi was injected stress images were obtained stress and rest images were reconstructed and compared in the short axis vertical long and horizontal long axis. Gated images were also obtained. Perfusion SPECT analysis: Review of the stress images demonstrate normal uptake of tracer noted in all areas of the myocardium. The resting images similar demonstrated normal uptake of tracer noted in all areas of the myocardium. No areas of reversibility are noted to suggest ischemia and no previous infarct is noted. Gated SPECT analysis: The gated ejection fraction is 60%. Conclusion: Normal pharmacologic myocardial perfusion stress test. Preserved ejection fraction.
== END | disposition home or self-care (01) ==
LOC: CVS 07:13
PROVIDERS: PCP Family Medicine; Referring Provider Nurse Practitioner Family; Visit Provider Nurse Practitioner Family
DX: R07.9 Chest pain, unspecified (principal); Z95.5 Presence of coronary angioplasty implant and graft; E78.2 Mixed hyperlipidemia; I10 Essential (primary) hypertension
CPT/HCPCS: 78452; 93017; A9500; A4216; J2785

== ENCOUNTER → 2024-05-24 | Outpatient (CLI) | payer MEDICARE, SELFPAY ==
--- NOTE | 2024-05-24 11:26 | RAD_ITS ---
INDICATION: HIP PAIN EXAMINATION/TECHNIQUE: X-RAY - XR Hips Bilateral with Pelvis when performed; Min 5 Views COMPARISON: CT abdomen/pelvis dated 04/24/2023. FINDINGS: PELVIC BONES: No displaced fracture, destructive or sclerotic lesions. Note that overlapping bowel shadows may however obscure fine detail. Sacroiliac joints are unremarkable. No widening of the pubic symphysis. HIPS: There is minimal degenerative arthrosis of the hip joints bilaterally. No displaced fracture. SOFT TISSUES: No soft tissue swelling or gas. 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 No evidence of displaced pelvic or hip fracture. Electronically Signed: Lino Lloyd MD at 10:25 EST ,
== END | disposition home or self-care (01) ==
LOC: MTRAD 11:22
PROVIDERS: PCP Family Medicine; Referring Provider Family Medicine; Visit Provider Family Medicine
DX: M16.0 Bilateral primary osteoarthritis of hip (principal)
CPT/HCPCS: 73521

== ENCOUNTER → 2024-06-14 | Outpatient (CLI) | payer MEDICARE, SELFPAY ==
[2024-06-14 10:34] LABS: Absolute Neutrophil Count 2.5 X10^3/uL (2.0-7.7); Basophil# 0.06 X10^3/uL; Basophil% 1.1 % (0-1); Eosinophil# 0.16 X10^3/uL; Eosinophils% 2.9 % (0-5); Hemoglobin 13.6 g/dL (12.0-15.0); Lymphocyte % 41.7 % (19-41); Mean Corp Hgb Conc 32.4 g/dL (32-36); Mean Corpuscular Hgb 33.3 pg (27.0-32.0); Mean Corpuscular Volume 102.9 fL (81-99); Monocyte# 0.49 X10^3/uL; Monocyte% 8.9 % (0-10); NRBC Flagged by Analyzer 0 % (0-5); Neutrophil % 45.2 % (47-70); Platelet Count 227 K/mm3 (150-450); RBC Distribution Width SD 45.4 fl (35.1-43.9); Red Blood Count 4.08 M/mm3 (4.2-5.4); White Blood Count 5.5 K/mm3 (4.4-11.0)
[2024-06-14 10:41] LABS: Prothrombin Time (Protime)PT. 13.4 SECONDS (11.7-14.9)
[2024-06-14 11:50] LABS: ALB/GLOB Ratio 0.9 RATIO (0.9-2.4); AST(SGOT) 28 U/L (15-37); Alanine Aminotransfer ALT/SGPT 34 U/L (13-56); Albumin, Serum 3.3 g/dL (3.2-5.0); Alkaline Phosphatase 125 U/L (45-117); Anion Gap 5 (5-15); BUN 22 mg/dL (7-18); BUN/Creat Ratio 22.7 RATIO (10-20); Calcium,Total 9.6 mg/dL (8.5-10.1); Chloride 109 mmol/L (98-107); Creatinine, Serum 0.97 mg/dL (0.55-1.02); EST Glomerular Filtration Rate 59 mL/min (>60); Est Glom Filt Rate - Afr Amer 72 mL/min (>60); Globulin 3.7 g/dL (2.2-4.2); Glucose 84 mg/dL (74-106); Sodium Level 142 mmol/L (136-145)
[2024-06-19 14:08] LABS: QNTFERON TB Mitogen Value > 10.00 IU/mL (.); QNTFERON TB Nil Value 0.03 IU/mL (.); QNTFERON TB1+ Ag Value 0.08 IU/mL (.); QNTFERON TB2+ Ag Value 0.04 IU/mL (.); QNTIFERON TB Positive Criteria Negative (Negative)
== END | disposition home or self-care (01) ==
LOC: MTLAB 08:40
PROVIDERS: PCP Family Medicine; Referring Provider Family Medicine; Visit Provider Family Medicine
DX: R44.0 Auditory hallucinations (principal)
CPT/HCPCS: 36415; 80053; 85025; 85610; 86480

== ENCOUNTER → 2024-07-03 | Outpatient (CLI) | payer MEDICARE, SELFPAY ==
--- NOTE | 2024-07-03 15:44 | SP.MBSS_ITS ---
Modified Barium Swallow Patient Information Study Date: 07/03/24 Study Time: 13:00 Direct Billable Minutes: 91 Total Minutes procedure & reportin Diagnosis: Dysphagia R13.10 Referring Physician: Florin Aragon Reason for Referral: Assess swallow function, assess risk for aspiration, and determine recommendations for least restrictive diet textures and compensatory strategies to improve safety of swallow. Medical History: PMH: Fracture of distal end of left ulna, Essential HTN, NSTEMI, Hx of CVA. Brain MRI 02/11/2014: Acute infarction in the right basal ganglia. Moderate supratentorial white matter disease consistent with chronic white matter ischemic changes of small vessel disease. Chronic mucosal inflammatory disease in the ethmoid air cells. The patient was recommended MBSS by PCP due to difficulty swallowing ~5 weeks prior for a 2-week duration. The patient was having difficulty swallowing foods, such as breads, because they would become stuck (pointing to her throat/level of her sternum). This would occur intermittently, but has now not occurred for 3 weeks. The patient has no issues swallowing liquids. She has no hx of choking. In addition to PMH above, pt reports having falls striking her head, but no injury other than bruising. She did injure her spine August 2023 from a fall out of bed (thoracic spine). The patient feels she has no residual deficits from CVA in 2013. Current Diet Ordered: Regular textures / Thin liquids Dentition: Natural Teeth and Missing Teeth Mental Status: WNL Respiratory Status: Oxygenating on Room Air Penetration-Aspiration Scale Penetration-Aspiration Scale: OBJECTIVE ASSESSMENT OF SWALLOW FUNCTION (QUANTITATIVE ? PER TRIAL): PENETRATION / ASPIRATION SCALE (HILL): 1 = does not enter airway 2 = enters airway/above vocal folds/ejected 3 = enters airway/above vocal folds/not ejected 4 = enters airway/contacts vocal folds/ejected 5 = enters airway/contacts vocal folds/not ejected 6 = enters airway/below vocal folds/ejected 7 = enters airway/below vocal folds/not ejected despite effort 8 = enters airway/below vocal folds/no effort VIDEOFLOROSCOPIC SCALE SCORE (HILL): Grade I = aspiration of material that has penetrated into the laryngeal vestibule, intact cough reflex Grade II = aspiration < 10 % of the bolus, intact cough reflex Grade III = aspiration of < 10 % of the bolus, reduced cough reflex or aspiration of > 10 % of the bolus, intact cough reflex Grade IV = aspiration of > 10 % of the bolus, reduced cough reflex Penetration-Aspiration Scale Score Thin Liquid via teaspoon: Result: 2= enter airway/above vocal folds/ejected Thin Liquid via teaspoon Trial 2: Result: 1= does not enter airway Thin Liquid via large single sip: cup: Result: 2= enter airway/above vocal folds/ejected [place] Thick Liquid via large single sip: cup: Result: 1= does not enter airway Pudding via teaspoon: Comment: Pharyngeal phase not captured by fluoroscopy, so no PAS for this trial. Esophageal screen - Complete clearance. Pudding via teaspoon Trial 2: Result: 1= does not enter airway 1/2 Cookie: Result: 1= does not enter airway Comment: Esophageal screen - Complete clearance. Thin Liquid via single sip: straw: Result: 2= enter airway/above vocal folds/ejected Thin Liquid via sequential sips:straw: Result: 2= enter airway/above vocal folds/ejected Comment: Esophageal screen - Retention in the middle and lower esophagus w/ retrograde flow to the upper esophagus. Pudding via teaspoon Trial 3: Result: 1= does not enter airway Comment: Esophageal screen - Previous trial had mostly cleared; however, retention of pudding in middle to lower esophagus. No clearance through the LES. Thin liquid wash during esophageal screen somewhat cleared barium through LES; however, persisting retention of barium in the lower esophagus w/ retention to the middle esophagus. Thin liquid via single sip via straw - A-P view: Comment: No PAS score for A-P view. Retention on L side of pharynx. Cued double swallow to clear. Thin liquid via single sip via straw - A-P view Trial 2: Comment: No PAS score for A-P view. Cued effortful swallow. Still retention on L side of pharynx. Cued double swallow to clear. Oral Phase Labial Seal: No Labial Escape Tongue Control During Bolus Hold: Posterior escape of less than half of bolus Bolus Preparation/Mastication: Slow prolonged chewing/mashing with complete recollection Bolus Transport/Lingual Motion: Delayed initiation of tongue motion Oral Residue: Residue collection on oral structures Pharyngeal Phase Initiation of Pharyngeal Swallow: Bolus head in pyriforms Soft Palate Elevation: Trace column of contrast/air between soft palate and pharyngeal wall Laryngeal Elevation: Comp. Superior move thyroid cart w/comp. apprx arytenoid cart-epig pet Anterior Hyoid Excursion: Partial anterior movement Epiglottic Movement: Complete inversion Laryngeal Vestibule Closure at Height of Swallow: Incomplete; narrow column of air/contrast in laryngeal vestibule (trace laryngeal penetration w/ complete ejection after the swallow) Pharyngeal Stripping Wave: Present - diminished Pharyngoesophageal Segment Opening: Complete distension and complete duration; no obstruction of flow Tongue Base Retraction: Narrow column of contrast between tongue base & post. pharyngeal wall Pharyngeal Residue: Collection of residue within or on pharyngeal structures Esophageal Phase Esophageal Clearance: Esophageal retention w/ retrograde flow below pharyngoesophageal seg. Treatment Strategies Effects of treatment strategies attemped:: Effortful = not effective. Double swallow = effective. Alternate bites/sips = somewhat effective. Diagnosis/Impression Diagnosis: Mild oropharyngeal dysphagia R13.12; Esophageal dysphagia R13.14 Impression: The oral phase is primarily marked by... -Decreased bolus control w/ premature posterior loss of >1/2 of thin liquid boluses to the pyriforms (even laryngeal vestibule w/ one trial) prior to swallow onset. -Delayed tongue motion for A-P transport. -Slow, but complete mastication. -Mild oral residue of cookie fully cleared w/ independent use of a second swallow. The pharyngeal phase is primarily marked by... -Decreased pharyngeal motility due to decreased TB retraction and pharyngeal stripping wave w/ mild pharyngeal residues on the L side, likely from old R- sided CVA. Double swallow was most effective in clearing residues, which the patient did complete independently at times; however, she required cues on several swallows to clear residues. -Delayed swallow onset w/ laryngeal penetration before and during the swallow, which fully ejected. No aspiration. The esophageal phase is primarily marked by... -Retention of thin liquids and pudding in the esophagus w/ retrograde flow below the UES. Alternating bites and sips was somewhat effective. Recommendations Diet: Regular Textures and Thin Liquids Comment: STOP meal if increased s/s of reflux, sensation of retention, or regurgitation despite use of strategies listed below and resume meal at a later time. Compensatory Strategies: Small Bites, Small Sips, Slow Rate, Multiple Swallows (Double swallows), Alternate bites/solids and sips/liquids, Sitting upright and Remain sitting upright for 30 minutes after PO intake Recommend Repeat Modified Barium Swallow: No Need for Skilled Speech Therapy Services: Yes Comment: -Train the patient in use of strategies to decrease risk for aspiration and reflux aspiration. -Ongoing assessment of diet tolerance of recommended textures. -Train the patient in oropharyngeal exercise program to improve bolus control, swallow onset, and pharyngeal motility (lingual resistance, Mary, effortful). Recommended Referrals: GI Consult Education Completed: 1. Described result of evaluation., 2. Pt understands evaluation & agrees with goals and treatment plan. and 7. Pt requires further education on strategies & risks. Status Active ST Patient: Active Contact Information [facility] Speech Therapy:: Linda Peter M.A. CCC-PATIENT ATTENDANT? Speech-Language Pathologist?? [facility] [address] [place] [address]? [email or web address]?? [phone]
== END | disposition home or self-care (01) ==
LOC: RAD 12:45
PROVIDERS: PCP Family Medicine; Referring Provider Family Medicine; Visit Provider Family Medicine
DX: R13.10 Dysphagia, unspecified (principal)
CPT/HCPCS: 74230; 92611

== ENCOUNTER → 2024-07-09 | Outpatient (CLI) | payer MEDICARE, SELFPAY ==
--- NOTE | 2024-07-09 13:08 | CT_ITS ---
EXAM: BRAIN/HEAD W/WO CONTRAST CLINICAL HISTORY: Audible hallucinations. History of fall and prior stroke. COMPARISON: None. TECHNIQUE: Multiple axial tomographic images were obtained with and without intravenous contrast administration. Coronal and sagittal reconstruction was obtained as well. FINDINGS: There is evidence of encephalomalacia in the right frontal region extending into the right basal ganglion and inferior cortex of the right temporal lobe with no significant mass effect. This is in keeping with old infarct. There is evidence of diffuse cerebral atrophy and bilateral periventricular white matter changes suggestive of chronic small-vessel disease. Atherosclerotic calcification of the cavernous portions of the internal carotid arteries bilaterally. CT/Brain/Head W/WO Contrast IMPRESSION: Cerebral atrophy. Encephalomalacia involving the right frontal as well as the right basal ganglio n and insular cortex of the right temporal lobe. Reading Location: [id number]
== END | disposition home or self-care (01) ==
LOC: CT 13:05
PROVIDERS: PCP Family Medicine; Referring Provider Family Medicine; Visit Provider Family Medicine
DX: R44.0 Auditory hallucinations (principal)
CPT/HCPCS: 70470; Q9967; A4216

== ENCOUNTER 2024-07-25 09:43 | Outpatient (RCR) | payer MEDICARE, SELFPAY | END 2024-08-13 23:59 | LOC: NS 09:43 | PROVIDERS: PCP Family Medicine; Referring Provider Family Medicine; Visit Provider Family Medicine | DX: Z71.3 Dietary counseling and surveillance (principal); M81.0 Age-related osteoporosis without current pathological fracture | CPT/HCPCS: 97803 ==

== ENCOUNTER → 2024-08-23 | Outpatient (CLI) | payer MEDICARE, SELFPAY ==
--- NOTE | 2024-08-23 10:24 | RAD_ITS ---
EXAM: XR Right Forearm, 2 Views CLINICAL INDICATION: FRACTURE TECHNIQUE: Frontal and lateral views of the right forearm. COMPARISON: No relevant prior studies available. FINDINGS: BONES/JOINTS: See below. SOFT TISSUES: Soft tissue swelling without acute fracture. RAD/Forearm 2 Views IMPRESSION: 1. Soft tissue swelling without acute fracture. 2. If symptoms persist, further evaluation with CT is recommended. Reading Location[facility]
== END | disposition home or self-care (01) ==
LOC: MTRAD 10:23
PROVIDERS: PCP Family Medicine
DX: M79.601 Pain in right arm (principal)
CPT/HCPCS: 73090

== ENCOUNTER 2024-10-30 09:55 | Outpatient (RCR) | payer MEDICARE, SELFPAY | END 2024-11-12 23:59 | LOC: NS 09:55 | PROVIDERS: PCP Family Medicine; Referring Provider Family Medicine; Visit Provider Family Medicine | DX: Z71.3 Dietary counseling and surveillance (principal); N18.32 Chronic kidney disease, stage 3b; M81.0 Age-related osteoporosis without current pathological fracture | CPT/HCPCS: 97803 ==

== ENCOUNTER 2024-11-19 10:30 | Outpatient (RCR) | payer MEDICARE, SELFPAY ==
--- NOTE | 2024-09-27 11:17 | HP.PTEVAL ---
Patient's Visit Information Visit Information Visit Information: CRISTINO NOLAN is a 79 year old F referred to Physical Therapy by Dr. Florin rAagon MD with a diagnosis of Right gluteal/hip pain referred to knee. Date of Evaluation: 09/27/24 Physical Therapist: Mason Paz Visit Plan Frequency: 1-2x /Week Duration: 4-6 Weeks Plan: Continue with core, back, and hip strengthening. Try to find a direction of preference for leg pain as well. Use manual therapy and modalities as needed for pain control. Subjective Subjective: Pt. is a 79 y.o. female who is having intermittent right leg pain down to her calf which has been going on for a couple of weeks with no specific injury that she is aware of. Pt. PLOF includes history of compression fracture of her lumbar spine. Pt. has had x-ray of her right hip which showed osteoarthritis and also MRI of her lumbar spine in the past which showed compression fractures. Pt. denies any change in her bowel or bladder function or unexplained weight loss. She has difficulty with standing for long periods of time, lifting things, carrying things, pushing/pulling, housework, and yard work. 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 Her goal with physical therapy is to get rid of the pain and be able to do normal activity. Pt. rates right lower leg pain at 3/10 currently, at worst 8/10, at best 0/10 and describes the pain as dull and achy. Her PMH includes tachycardia, former smoker quit 25 years, abdominal hernia surgery, gall bladder removed, right ovary removed and lumbar kyphoplasty. She is not taking any pain medication. Pt. lives with her son in a two story home. Her hobbies include knitting, reading, and watching tv. Objective Objective: Palpation- No tenderness to palpation Observation- Good posture in standing Lumbar AROM flexion x 10- WNL and no back pain but has right gilman pain. extension x 10- min restriction and no change in right iglman pain. SB x 10 to left- WNL and no change in right gilman pain. SB x 10 to right- WNL and no change in left gilman pain. Lumbar rotations- WNL bilaterally and no change in left gilman pain. Hip PROM- WNL bilaterally Pelvis and leg length normal in supine Left LE strength hip flexion 4+/5, abduction 4+/5, adduction 5/5, extension 4+/5, knee flexion 5/5, knee extension 5/5, ankle DF 5/5, ankle PF 5/5 Right LE strength hip flexion 4+/5, abduction 4+/5, adduction 5/5, extension 4+/5, knee flexion 5/5, knee extension 5/5, ankle DF 5/5, ankle PF 5/5 Tandem stance left 25 secs, right 30 secs SLS left 6 secs, right 5 secs Gait- Pt. ambulates with no gait deviations. Balance/Special Test Scores Lower Extremity Functional Score: 45 Goals Goal 1:: Pt. will centralize symptoms from right leg to low back. Goal Time Frame: 4-6 Weeks Goal 2:: Pt. will be able to stand/walk for at least 20 minutes with pain < 3/10. Goal Time Frame: 4-6 Weeks Goal 3:: Pt. will improve right LE strength to 5/5 for all motions in order to improve mobility and ADL's. Goal Time Frame: 4-6 Weeks Goal 4:: Pt. will be able to lift 20# with proper body mechanics and no pain. Goal Time Frame: 4-6 Weeks Goal 5:: Pt. will rate pain at worst at 3/10 with ADL's. Goal Time Frame: 4-6 Weeks Goal 6:: Pt. will improve LEFS score <40% in order to improve mobility. Goal Time Frame: 4-6 Weeks Rehabilitation Potential Physical Therapy Diagnosis: Decreased core/back/hip strength, difficulty walking, balance impairment, and pain. Pt. presents at this time with possible lumbar radiculopathy. Rehabilitation Potential: Good Anticipated Interventions Patient/Client Instruction: Educate patient on: Condition, Plan of Care and Benefits of Fitness Program For the Purpose of:: To decrease pain, To improve ability to perform ADL's, To improve performance and independence with ADL's, To assume or resume ADL's and To improve tolerance to ADL's Therapeutic Exercise to Include: Strength training, Endurance training, Balance training, Body mechanics, Postural training, Flexibilty training, Gait and locomotor training, Active ROM, Dynamic Lumbar Stabilization and Tim Exercises Comment: Continue with core, back, and hip strengthening. Try to find a direction of preference if able for leg pain. Also include balance exercises as well. For the Purpose of:: To decrease pain, To improve ability to perform ADL's, To improve performance and independence with ADL's, To improve balance, To improve safety with gait, To assume or resume ADL's and To improve tolerance to ADL's Functional Training to Include: ADL Training and Gait training For the Purpose of:: To decrease pain, To improve ability to perform ADL's, To improve performance and independence with ADL's, To improve endurance, To improve balance, To assume or resume ADL's and To improve tolerance to ADL's Manual Therapy Techniques to Include: Mobilization, Functional dry needling and Soft tissue mobilization For the Purpose of:: To decrease pain, To improve ability to perform ADL's, To improve performance and independence with ADL's, To increase flexibility/ROM, To assume or resume ADL's and To improve tolerance to ADL's TENS: Yes IF ES: Yes Cryotherapy (ice pack, ice massage): Yes Thermo therapy (hot pack): Yes For the Purpose of:: To decrease pain, To improve ability to perform ADL's, To improve performance and independence with ADL's, To assume or resume ADL's and To improve tolerance to ADL's Text: Thank you for the opportunity to evaluate your patient. For Medicare and Medicare HMO plans, please review the plan of care and approve it. It will need to be FAXED BACK to us at [phone] for Medicare purposes. For Medicare only, by signing this I certify the plan of care. Please let me know if there are questions or concerns regarding this plan of care. Physician Signature: Date:
--- NOTE | 2024-11-19 11:04 | HP.PTDCSUM ---
Discharge Summary D/C summary: It has been my pleasure to treat CRISTINO NOLAN referred by Dr. Florin Aragon MD, with the diagnosis of Right gluteal/hip pain referred to knee for a total of 8 visit(s). Discharge Date: 11/19/24 Please see the following information for a summary of their discharge status. Subjective Subjective: Pt. repots being 50% better overall. Pt. reports no pain currently in her R leg. Pt. does have some L sided back pain and woke up stiff this AM. Pain R LE: Pain Intensity (Out of 10): 0 R SH: Pain Intensity (Out of 10): 0 Overall Improvement % Improvement: 50 Objective Objective/Function: Pt. is overall doing much better. pt. reports no pain in her R side of back and leg at this point in time. ROM: Pt. has full lumbar ROM without increase in symptoms. MMT: Pt. has 5/5 strength and symmetrical between BLEs. No issues noted. GAIT: normal STAIRS: normal. Pt. was able to lift 20# from floor to table with good mechanics without increase in symptoms. Goals Goal 1:: Pt. will centralize symptoms from right leg to low back. Goal Progress: Goal Met Goal 2:: Pt. will be able to stand/walk for at least 20 minutes with pain < 3/10. Goal Progress: Goal Met Goal 3:: Pt. will improve right LE strength to 5/5 for all motions in order to improve mobility and ADL's. Goal Progress: Goal Met Goal 4:: Pt. will be able to lift 20# with proper body mechanics and no pain. Goal Progress: Goal Met Goal 5:: Pt. will rate pain at worst at 3/10 with ADL's. Goal Progress: Goal Met Goal 6:: Pt. will improve LEFS score <40% in order to improve mobility. Plan Plan: Pt. is I with HEP. Pt to be DC from PT at this point in time. D/C Information d/c sentence: If there are questions or concerns regarding this patient's physical therapy, please feel free to call me at [phone]. Thank you for the referral of this patient. Sincerely, Larry Guajardo Sipos, DPT Balance/Gait/Functional tests Balance/Special Test Scores Lower Extremity Functional Score: 54 Improvement % Improvement: 50
== END 2024-11-19 11:23 | disposition home or self-care (01) ==
LOC: PT 10:30
PROVIDERS: PCP Family Medicine; Referring Provider Family Medicine; Visit Provider Family Medicine
DX: M25.551 Pain in right hip (principal)
CPT/HCPCS: 97110; 97162; 97530

== ENCOUNTER 2024-12-26 08:49 | Emergency (ER) | payer MEDICARE, SELFPAY ==
[2024-12-26 08:50] VITALS: BP 120/90; PULSE 152; RESP 18; TEMP 36.8; O2SAT 97
--- NOTE | 2024-12-26 09:08 | EX.ED.GENINJ ---
HPI History of Present Illness Chief Complaint: Fall [facility] Medical History Fracture of distal end of left ulna Essential hypertension Non-STEMI (non-ST elevated myocardial infarction) History of CVA (cerebrovascular accident) History of hypertension Home Medications ?Medication ?Instructions ?Recorded ?Last Taken ?Type budesonide 3 mg 9 mg PO DAILY COLITIS 07/11/22 07/11/22 History capsule,delayed,extended release calcium 600 mg (as 1 tab PO DAILY SUPPLEMENT 07/11/22 07/11/22 History carbonate)-vitamin D3 5 mcg (200 unit) tablet diclofenac sodium 1 % topical gel 1 ea topical 4X/DAY PAIN 07/11/22 07/10/22 History escitalopram oxalate 5 mg tablet 5 mg PO DAILY SUPPER 07/11/22 07/10/22 History ipratropium bromide 21 mcg (0.03 2 spray intranasal Q6H PRN 07/11/22 Unknown History %) nasal spray CONGESTION/COUGH levothyroxine 50 mcg tablet 50 mcg PO DAILY THYROID 07/11/22 07/11/22 History mirtazapine 7.5 mg tablet 7.5 mg PO QHS PRN 07/11/22 Unknown History DEPRESSION/ANXIETY multivitamin 1 tab PO DAILY HEALTH MAINTENANCE 07/11/22 07/10/22 History rosuvastatin 10 mg tablet 10 mg PO QHS CHOLESTEROL 07/11/22 07/09/22 History thiamine HCl (vitamin B1) 100 mg 100 mg PO BIDCM SUPPLEMENT 07/11/22 07/10/22 History tablet vitamin B complex 1 tab PO DAILY SUPPLEMENT 07/11/22 07/10/22 History meloxicam 15 mg tablet 15 mg PO QDAY 11/11/23 Unknown History fexofenadine 180 mg tablet 180 mg PO Q24H 02/08/24 Unknown History cyanocobalamin (vitamin B-12) 1,000 mcg PO DAILY PRN Nausea 03/13/24 Unknown History 1,000 mcg tablet (Vitamin B-12) dicyclomine 20 mg tablet 20 mg PO TID 03/13/24 Unknown History hydrocodone-acetaminophen 5-325mg 1 tab PO Q6H PRN 03/13/24 Unknown History 5mg-325mg lidocaine 5 % topical cream 1 applic topical BID PRN 03/13/24 Unknown History loperamide 2 mg tablet (Imodium 2 mg PO Q6H PRN 03/13/24 Unknown History A-D) coenzyme Q10 100 mg capsule 100 mg PO QDAY 04/10/24 Unknown History ibandronate 150 mg tablet 150 mg PO QMONTH 04/10/24 Unknown History pyridoxine (vitamin B6) PO 04/10/24 Unknown History irbesartan 75 mg tablet 75 mg PO DAILY for blood pressure 08/27/24 Unknown Rx #90 TABLETS aspirin 81 mg tablet,delayed 81 mg PO QDAY #90 tabs 09/12/24 Unknown Rx release (Adult Aspirin Regimen) estradiol 10 mcg vaginal tablet 10 mcg vaginal 2XW 09/12/24 Unknown History (Yuvafem) metoprolol tartrate 25 mg tablet 12.5 mg PO BID 09/12/24 Unknown History Allergy/AdvReac Type Severity Reaction Status Date / Time nickel Allergy Unknown Rash Verified 12/26/24 08:50 Penicillins Allergy Unknown Verified 12/26/24 08:50 sulfamethoxazole (From Allergy Hives Verified 12/26/24 08:50 Bactrim) trimethoprim (From Bactrim) Allergy Hives Verified 12/26/24 08:50 Family History Father Myocardial infarction by IN-60s CHF (congestive heart failure) Mother Chest pain Uncle Diabetes Surgical History History of hernia surgery (~04/2023) Hx of bilateral cataract extraction (~12/2022) Status post inguinal herniorrhaphy using synthetic patch Hx laparoscopic cholecystectomy History of coronary artery stent placement (07/12/22) Social History Smoking Status: Former smoker how long ago did patient quit smokin years ago alcohol intake: current alcohol intake frequency: 0-2 drinks per day Alcohol type: wine substance use type: does not use caffeine: Yes Type: coffee Number of servings: 2 and tea additional social history: EXAM Physical Exam Const Vital Signs: 12/26/24 08:49 12/26/24 08:50 12/26/24 10:49 Temperature 98.3 F Temperature Source Oral Pulse Rate 152 H Respiratory Rate 18 Respiratory Effort Normal Respiratory Depth Normal Respiratory Pattern Normal Blood Pressure 120/90 H Blood Pressure Mean 100 Pulse Ox 97 Oxygen Delivery Method Room Air Room Air Nasal Cannula Oxygen Flow Rate (L/min) 2 12/26/24 10:49 12/26/24 11:55 Temperature 97.8 F Temperature Source Pulse Rate 143 H 154 H Respiratory Rate 16 18 Respiratory Effort Respiratory Depth Respiratory Pattern Blood Pressure 134/78 H 118/84 H Blood Pressure Mean 96 95 Pulse Ox 98 99 Oxygen Delivery Method Room Air Oxygen Flow Rate (L/min) [facility] [place] Medical decision making narrative: HISTORY OF PRESENT ILLNESS: Chief complaint: Fall 79-year-old female history of hypertension, alcohol abuse, hyperlipidemia, who presents with fall. No she was intoxicated last night. States she takes a blood thinner but is unsure which one. Notes used and drinking approximate 1 bottle of wine every day for the last several months. Notes multiple falls yesterday. Son endorsed a history of when she was in her bedroom she tripped over some close fell onto her knees and hands because she injured her head. The patient cannot remember exact what happened. There is no loss of consciousness reported. Patient notes severe left scapular/rib pain. Denies chest pain or shortness of breath. Denies leg swelling. Last drink was approximately 7 PM on 12/25/2024. REVIEW OF SYSTEMS: Pertinent positives: Fall Pertinent negatives: PHYSICAL EXAM: Nursing triage notes reviewed, Vital signs reviewed Constitutional: please see mdm HENT: MMM, bruising/irritation noted to right forehead. Eyes: Pupils equal round and reactive to light, Extraocular muscles intact Neck: No stridor, no JVD, full neck ROM Lungs: Clear to auscultation, No wheezing or rales. No increased work of breathing, no conversational dyspnea, no accessory muscle use, no nasal flaring. No respiratory distress noted. Crepitus noted to left ribs and scapula. Heart: Regular rate and rhythm, No murmurs, No rubs and No gallops, 2+ distal pulses (radial, femoral, posterior tibial) in all extremities Abdomen: Soft, there is no tenderness, rigidity, rebound or guarding, no obvious peritoneal signs, no palpable pulsatile abdominal masses, no auscultated abdominal bruit : No CVAT Extremities: No edema Back: TTP over left ribs, left scapula Neuro: No new focal neurological deficits, cranial nerves II through XII intact, 5/5 strength in all present extremities. Intact sensation to light touch in all present extremities, 2+ reflexes bilateral patella tendons. Skin: No rash or lesions noted MEDICAL DECISION MAKING: Chief Complaint: please see HPI External records reviewed: Reviewed prior imaging studies Factors affecting care: as per HPI Social determinants of health: Alcohol abuse History obtained from others: Son Consults: NINA Narrative: [facility], emergency department The patient was initially tachycardic, afebrile and nontoxic-appearing. Exam with bruising to scalp, bruising and TTP over left scalp and left ribs. I considered the following differential diagnosis: I obtained a broad lab and imaging workup to further determine if the patient was suffering from a life-threatening etiology. Gave IV fluids, Zofran, alcohol withdrawal treatment empirically with lorazepam and phenobarbital ALL IMAGES (IF OBTAINED) HAVE BEEN PERSONALLY REVIEWED AND INTERPRETED BY MYSELF. EKG with sinus tachycardia rate 142, normal axis, normal intervals, no STEMI, no signs of ARVD, Brugada or WPW CT scan of the brain showed no evidence of ICH CT of the cervical spine negative for acute traumatic injury CT chest shows multiple rib fractures (ribs [id number]) and a small anterior pneumothorax (considered placing a chest tube however given the small size, lack of hypoxia or significant chest pain the risk of invasive chest tube placement is higher than benefit at this time. Will treat with oxygen. CBC with no leukocytosis, mild anemia, no thrombocytopenia BMP with metabolic acidosis, endorgan hypoperfusion, no sick electrolyte abnormalities, no acute kidney injury LFTs with mild elevation in AST and ALT consistent with alcohol use Lipase is wnl indicating no pancreatic inflammation. High-sensitivity troponin is negative, no evidence of myocardial ischemia Urinalysis shows no evidence of urinary inflammation suggestive of UTI Urine tox c screen is negative Serum alcohol elevated Discussed the case with Dr. Augustine (emergency physician) who except the patient in transfer. Will transfer by critical care transport given abnormal vital signs, multiple rib fractures and small pneumothorax. The patient and/or family, caregivers express understanding. The patient and/or family, caregivers agrees with the plan. Shared decision making: I will have a discussion with the patient and or visitors regarding risk/benefits of further testing or admission. They will be made aware of of the risk/benefits inherent in this decision they will be given the opportunity to voice understanding. Total critical care time today provided was at least 60 minutes. This excludes separately billable procedures. Critical care time (if documented) is secondary to the patient having high probability of clinically significant/life threatening deterioration in the patient's condition which required my urgent intervention. Impression: 1. Fall 2. Acute alcohol withdrawal 3. Acute rib fracture 4. Acute pneumothorax Dispo: Transfer to nearest trauma center ([facility]) This note was generated with Yoovi dictation software. It may contain incorrect words, spelling, and punctuation that were not noted in review of the chart prior to signing. Lab Data Labs: Laboratory Results - last 24 hr 12/26/24 12/26/24 12/26/24 09:31 09:40 10:19 WBC 7.4 RBC 3.81 L Hgb 13.5 Hct 39.0 MCV 102.4 H MCH 35.4 H MCHC 34.6 RDW Std Deviation 48.0 H RDW Coeff of Alvin 12.8 Plt Count 129 L MPV 9.8 Immature Gran % (Auto) 0.400 Neut % (Auto) 68.2 Lymph % (Auto) 17.3 L [place] % (Auto) 13.2 H Eos % (Auto) 0.1 Baso % (Auto) 0.8 Absolute Neuts (auto) 5.1 Absolute Lymphs (auto) 1.28 Nucleated RBC % 0 Sodium 140 Potassium 3.9 Chloride 104 Carbon Dioxide 18.8 L Anion Gap 17 H BUN 19 Creatinine 0.80 Estim Creat Clear Calc 48.64 L Est GFR (MDRD) Non-Af 76 BUN/Creatinine Ratio 24.1 H Glucose 114 H Lactic Acid 3.6 H* Calcium 8.9 Total Bilirubin 0.52 AST 84 H ALT 75 H Alkaline Phosphatase 84 Troponin T High Sens 24 H Total Protein 7.0 Albumin 4.2 Globulin 2.8 Albumin/Globulin Ratio 1.5 Lipase 45 Urine Color Yellow Urine Clarity Clear Urine pH 5.0 Ur Specific [place] 1.020 Urine Protein 30 H Urine Glucose (UA) Normal Urine Ketones 5 H Urine Occult Blood 50 H Urine Nitrite Negative Urine Bilirubin Negative Urine Urobilinogen Normal Ur Leukocyte Esterase Negative Urine RBC 0-5 SEEN Urine WBC 0 SEEN Ur Squamous Epith Cells 0-5 SEEN Ur Transition Epith Cell 0-5 SEEN Urine Bacteria 0 SEEN Urine Mucus 0 SEEN Urine Opiates Screen NEGATIVE U Buprenorphine Qual NEGATIVE Ur Oxycodone Screen NEGATIVE Urine Methadone Screen NEGATIVE Urine Fentanyl Screen NEGATIVE Ur Barbiturates Screen NEGATIVE Ur Phencyclidine Scrn NEGATIVE Ur Amphetamines Screen NEGATIVE U Benzodiazepines Scrn NEGATIVE Urine Cocaine Screen NEGATIVE U Cannabinoids Screen NEGATIVE Ethyl Alcohol 53.2 H Radiography Diagnostic Testing: Clinical Impression(s) from Imaging Studies Brain CT 12/26/24 09:20 IMPRESSION: Chronic changes. Focal encephalomalacia is seen in the right basal ganglion. Reading Location: [id number] Cervical Spine CT 12/26/24 09:21 IMPRESSION: DEGENERATIVE CHANGES OF THE CERVICAL SPINE. NO EVIDENCE OF SIGNIFICANT OSSEOUS CENTRAL CANAL OR NEURAL FORAMINAL STENOSIS. Reading Location: [id number] Chest CT 12/26/24 09:21 IMPRESSION: Coronary artery calcification (CAC) is is present Multiple left-sided rib fractures as described with subcutaneous emphysema. Small left pleural effusion with basilar atelectasis at the left lung base as well as a small left pneumothorax. Reading Location: [id number] Abdomen/Pelvis CT 12/26/24 10:48 IMPRESSION: Left pleural effusion and left basilar atelectasis and small left pneumothorax. Borderline hepatomegaly. Left renal cyst. Reading Location: [id number] Discharge Plan Triage Chief Complaint: Fall ED Provider: Lemuel Garcia Dx/Rx/DC Orders Prescriptions: No Action meloxicam 15 mg tablet 15 mg PO QDAY fexofenadine 180 mg tablet 180 mg PO Q24H hydrocodone-acetaminophen 5-325 mg tablet 1 tab PO Q6H PRN lidocaine 5 % cream 1 applic topical BID PRN loperamide [Imodium A-D] 2 mg tablet 2 mg PO Q6H PRN dicyclomine 20 mg tablet 20 mg PO TID coenzyme Q10 100 mg capsule 100 mg PO QDAY pyridoxine (vitamin B6) PO ibandronate 150 mg tablet 150 mg PO QMONTH estradiol [Yuvafem] 10 mcg tablet 10 mcg vaginal 2XW metoprolol tartrate 25 mg tablet 12.5 mg PO BID aspirin [Adult Aspirin Regimen] 81 mg tablet,delayed release (DR/EC) 81 mg PO QDAY Qty: 90 3RF levothyroxine 50 mcg tablet 50 mcg PO DAILY rosuvastatin 10 mg tablet 10 mg PO QHS escitalopram oxalate 5 mg tablet 5 mg PO DAILY mirtazapine 7.5 mg tablet 7.5 mg PO QHS PRN (Reason: DEPRESSION/ANXIETY) multivitamin Tablet 1 tab PO DAILY calcium carbonate-vitamin D3 600 mg-5 mcg (200 unit) Tablet 1 tab PO DAILY vitamin B complex Tablet 1 tab PO DAILY budesonide 3 mg Capsule,Delayed,Extend.Release 9 mg PO DAILY ipratropium bromide 21 mcg (0.03 %) [place],Non-Aerosol 2 spray INTRANASAL Q6H PRN (Reason: CONGESTION/COUGH) diclofenac sodium 1 % gel 1 ea TOPICAL 4X/DAY thiamine HCl (vitamin B1) 100 MG tablet 100 mg PO BIDCM cyanocobalamin (vitamin B-12) [Vitamin B-12] 1,000 mcg tablet 1,000 mcg PO DAILY PRN (Reason: Nausea) irbesartan 75 mg tablet 75 mg PO DAILY Qty: 90 3RF Primary Care Provider: Florin Aragon Referrals: Florin Aragon MD [Primary Care Provider] - Print Language: Turkish Disposition Disposition: Acute Care Hospital Discharge Location: [facility] Discharge Date/Time: 12/26/24 12:00
--- NOTE | 2024-12-26 09:20 | CT_ITS ---
PROCEDURE: BRAIN/HEAD WITHOUT CONTRAST 12/26/2024 REASON FOR EXAM: FALL, HEAD TRAUMA TECHNIQUE: BRAIN/HEAD WITHOUT CONTRAST Coronal and Sagittal reconstruction series were provided. One or more dose reduction techniques were used (e.g., Automated exposure control, adjustment of the mA and/or kV according to patient size, use of iterative reconstruction technique. RADIATION DOSE SUMMARY: CTDlvol: 44.99 mGy DLP: 779.24 mGycm COMPARISON: Prior study dated July 09, 2024. FINDINGS: Brain: Low density in the periventricular white matter suggests mild chronic small vessel ischemic changes. Stable encephalomalacia in the right basal ganglion region with compensatory dilatation of the right frontal horn. CSF Spaces: Mild generalized cerebral atrophy Sinuses/Mastoids: Clear at visualized levels Bones: CT/Brain/Head without Contrast IMPRESSION: Chronic changes. Focal encephalomalacia is seen in the right basal ganglion. Reading Location: [id number]
--- NOTE | 2024-12-26 09:20 | EKG12_ITS ---
Test Reason : Blood Pressure : */* mmHG Vent. Rate : 142 BPM Atrial Rate : 142 BPM P-R Int : 126 ms QRS Dur : 70 ms QT Int : 292 ms P-R-T Axes : * 11 123 degrees QTcB Int : 449 ms Critical Test Result: High HR Sinus tachycardia Nonspecific ST and T wave abnormality Abnormal ECG When compared with ECG of 27-Apr-2023 04:49, Premature atrial complexes are no longer Present Vent. rate has increased by 76 bpm Nonspecific T wave abnormality now evident in Lateral leads Confirmed by BERNIE DILLON MD ([id number]), rewrite editor PIEDAD SLAUGHTER ([id number]) on 01/01/2025 6:18:56 AM Referred By: Confirmed By: BERNIE DILLON MD
--- NOTE | 2024-12-26 09:21 | CT_ITS ---
PROCEDURE: SPINE CERVICAL WITHOUT CONTRAS 12/26/2024 REASON FOR EXAM: NECK PAIN Recent fall. TECHNIQUE: SPINE CERVICAL WITHOUT CONTRAS Coronal and Sagittal reconstruction series were provided. One or more dose reduction techniques were used (e.g., Automated exposure control, adjustment of the mA and/or kV according to patient size, use of iterative reconstruction technique. RADIATION DOSE SUMMARY: CTDlvol: 15.46 mGy DLP: 331.15 mGycm COMPARISON: None FINDINGS: Alignment: Normal alignment. Vertebrae: No vertebral compression. Soft Tissues: No soft tissue swelling Other: C1-2: Unremarkable C2-3: Unremarkable C3-4: Facet joint osteoarthritis on the right side. No significant stenosis seen. C4-5: Facet joint osteoarthritis and hypertrophy more prominent on the right side. Mild right neural foraminal stenosis. C5-6: Marked degree of disc space narrowing and spondylosis. Uncovertebral arthrosis. Bilateral neural foraminal stenosis. C6-7: Mild degree of disc space narrowing. No acute abnormality is seen. C7-T1: Unremarkable CT/Spine Cervical without Contras IMPRESSION: DEGENERATIVE CHANGES OF THE CERVICAL SPINE. NO EVIDENCE OF SIGNIFICANT OSSEOUS CENTRAL CANAL OR NEURAL FORAMINAL STENOSIS. Reading Location: [facility]
--- NOTE | 2024-12-26 09:21 | CT_ITS ---
PROCEDURE: CHEST WITHOUT CONTRAST 12/26/2024 REASON FOR EXAM: LEFT SCAPULAR PAIN, LEFT RIB PAIN Recent fall. TECHNIQUE: Chest CT without contrast. Coronal and Sagittal reconstruction series were provided. One or more dose reduction techniques were used (e.g., Automated exposure control, adjustment of the mA and/or kV according to patient size, use of iterative reconstruction technique RADIATION DOSE SUMMARY: CTDlvol: 9.74 mGy DLP: 348.03 mGycm COMPARISON: Prior chest radiograph dated December 02, 2022. FINDINGS: Hardware: None Lymph nodes: No significant lymph node seen. Heart and Vasculature: The heart is nonenlarged. Tortuosity and calcification of the ascending and descending thoracic aorta. Coronary Artery Calcifications: Present Lungs and Airways: Small left pleural effusion with compressive atelectasis at the left lung base. Pleura: Small left anterior pneumothorax. Upper Abdomen: Unremarkable Bones: There is evidence of mild degree of subcutaneous emphysema overlying the left lateral chest wall. Nondisplaced fractures of the left 6 7 8th and 9th ribs posterolaterally. Increased kyphosis with loss of height of lower dorsal vertebrae and evidence of prior vertebroplasty. CT/Chest without Contrast IMPRESSION: Coronary artery calcification (CAC) is is present Multiple left-sided rib fractures as described with subcutaneous emphysema. Small left pleural effusion with basilar atelectasis at the left lung base as w ell as a small left pneumothorax. Reading Location: [id number]
[2024-12-26 09:45] VITALS: BMI 24.6
[2024-12-26 10:00] LABS: Hematocrit 39.0 % (37-47); Hemoglobin 13.5 g/dL (12.0-15.0); Immature Granulocytes Count 0.030 X10^3/uL (0.0-0.0); Mean Corp Hgb Conc 34.6 g/dL (32-36); Mean Corpuscular Volume 102.4 fL (81-99); Mean Platelet Vol. 9.8 fl (6.2-12.0); NRBC Flagged by Analyzer 0 % (0-5); Platelet Count 129 K/mm3 (150-450); RBC Distribution Width CV 12.8 % (11.6-14.6); RBC Distribution Width SD 48.0 fl (35.1-43.9); Red Blood Count 3.81 M/mm3 (4.2-5.4); White Blood Count 7.4 K/mm3 (4.4-11.0)
[2024-12-26 10:12] LABS: Mucous, Urine 0 SEEN /hpf (<or=2+)
[2024-12-26] MEDS: 0.9% Normal Saline (500mL Bag) 500 ML 1000 ML IV (10:13)
[2024-12-26] MEDS: Lorazepam 2 MG/ML WCH Syringe 1 MG IV (10:13)
[2024-12-26 10:20] LABS: Barbiturate Urine NEGATIVE (< 200 ng/mL); Benzodiazepine Urine NEGATIVE (< 200 ng/mL); PCP Urine NEGATIVE (< 25 ng/mL); THC Urine NEGATIVE (< 50 ng/mL)
[2024-12-26 10:24] LABS: Color, Urine Yellow (Yellow); Glucose, Dipstick Normal (Normal); Ketone-Dipstick 5 mg/dl (Negative); Leukocyte Esterase-Dipstick Negative /ul (Negative); Nitrite-Dipstick Negative (Negative); Occult Blood-Urine 50 /ul (Negative); Protein-Dipstick 30 mg/dl (Negative); Specific Gravity, Urine 1.020 (1.002-1.030); Urine Bilirubin Dipstick Negative (Negative)
[2024-12-26 10:28] LABS: AST(SGOT) 84 U/L (<=31); Alanine Aminotransfer ALT/SGPT 75 U/L (<=34); Albumin, Serum 4.2 g/dL (3.4-4.8); Alkaline Phosphatase 84 U/L (35-104); Anion Gap 17 (5-15); BUN 19 mg/dL (4-19); BUN/Creat Ratio 24.1 RATIO (10-20); Calcium,Total 8.9 mg/dL (7.6-11.0); Carbon Dioxide 18.8 mmol/L (21.0-32.0); Chloride 104 mmol/L (98-108); Estimated Creatinine Clearance 48.64 ml/min (50-250); Globulin 2.8 g/dL (2.2-4.2); Glucose 114 mg/dL (70-99); Lipase 45 U/L (13-75); Potassium 3.9 mmol/L (3.3-5.1); Troponin T High Sensitivity 24 ng/L (<=14)
[2024-12-26 10:33] LABS: Red Blood Cells-Urine 0-5 SEEN /hpf (0-5); Squamous Epithelial Cells - UA 0-5 SEEN /hpf (5-10); Transitional Epithelial - Ur 0-5 SEEN /hpf (0-5)
--- NOTE | 2024-12-26 10:48 | CT_ITS ---
PROCEDURE: ABDOMEN/PELVIS W IV CONT ONLY 12/26/2024 REASON FOR EXAM: FALL, LEFT SIDED PTX TECHNIQUE: ABDOMEN/PELVIS W IV CONT ONLY Coronal and Sagittal reconstruction series were provided. CONTRAST: Isovue-300 VOLUME: 100 mL One or more dose reduction techniques were used (e.g., Automated exposure control, adjustment of the mA and/or kV according to patient size, use of iterative reconstruction technique. RADIATION DOSE SUMMARY: CTDlvol: 13 mGy DLP: 713.45 mGycm COMPARISON: None FINDINGS: Lung bases: Small left pleural effusion with left basilar atelectasis. Small pneumothorax. Liver: Borderline hepatomegaly. Gallbladder: Gallbladder is surgically absent. Spleen: Normal size. Pancreas: Diffuse fatty atrophy. Adrenals: Unremarkable Kidneys: There is a 4.5 cm cyst in the upper pole of the left kidney. Bladder: Unremarkable Reproductive Organs: Unremarkable Bowel: Colonic diverticulosis without diverticulitis. Appendix: The appendix is not identified. There is no inflammatory process identified in the right lower quadrant to suggest appendicitis. Lymph nodes: Unremarkable. Vasculature: The abdominal aorta and IVC are normal. Peritoneum / Retroperitoneum: Unremarkable Bones: Old compression fractures of the lower dorsal vertebrae with vertebroplasty. CT/Abdomen/Pelvis W IV Cont ONLY IMPRESSION: Left pleural effusion and left basilar atelectasis and small left pneumothorax. Borderline hepatomegaly. Left renal cyst. Reading Location: [id number]
[2024-12-26 10:49] VITALS: BP 134/78; PULSE 143; RESP 16; O2SAT 98
[2024-12-26 11:27] LABS: Alcohol, Blood (Medical)-Serum 53.2 mg/dL (<=10.0)
[2024-12-26 11:55] VITALS: BP 118/84; PULSE 154; RESP 18; TEMP 36.6; O2SAT 99
[2024-12-26 14:24] LABS: Reflex Lactate? Y
== END 2024-12-26 12:00 | disposition short-term general hospital (02) ==
LOC: ED 09:25
PROVIDERS: Emergency Provider Emergency Medicine; PCP Family Medicine; Visit Provider Emergency Medicine
DX: S27.0XXA Traumatic pneumothorax, initial encounter (principal); F10.139 Alcohol abuse with withdrawal, unspecified; Y92.003 Bedroom of unspecified non-institutional (private) residence as the place of occurrence of the external cause; Y90.2 Blood alcohol level of 40-59 mg/100 ml; S22.42XA Multiple fractures of ribs, left side, initial encounter for closed fracture; W01.0XXA Fall on same level from slipping, tripping and stumbling without subsequent striking against object, initial encounter; I10 Essential (primary) hypertension; I25.2 Old myocardial infarction; R29.6 Repeated falls; Z95.5 Presence of coronary angioplasty implant and graft; Z79.82 Long term (current) use of aspirin; Z79.899 Other long term (current) drug therapy; Z87.891 Personal history of nicotine dependence
CPT/HCPCS: 70450; 71250; 72125; 74177; 80053; 80307; 81001; 82077; 83605; 83690; 84484; 85025; 93005; 96374; 96375; 99284; Q9967; A4216; J2405

== ENCOUNTER → 2025-02-04 | Outpatient (CLI) | payer MEDICARE, SELFPAY ==
[2025-02-04 18:08] LABS: Hematocrit 34.6 % (37-47); Hemoglobin 11.1 g/dL (12.0-15.0); Immature Granulocytes Count 0.000 X10^3/uL (0.0-0.0); Mean Corp Hgb Conc 32.1 g/dL (32-36); Mean Corpuscular Volume 104.2 fL (81-99); Mean Platelet Vol. 10.8 fl (6.2-12.0); NRBC Flagged by Analyzer 0 % (0-5); Platelet Count 209 K/mm3 (150-450); RBC Distribution Width CV 12.9 % (11.6-14.6); RBC Distribution Width SD 49.5 fl (35.1-43.9); Red Blood Count 3.32 M/mm3 (4.2-5.4); White Blood Count 3.8 K/mm3 (4.4-11.0)
[2025-02-04 18:37] LABS: Ferritin 304 ng/mL (22-378); Iron 58 ug/dL (50-170); Iron Binding Capacity,Unsat 142 ug/dL (228-428); Magnesium 2.1 mg/dL (1.5-2.2); Vitamin B12 377 pg/mL (180-914)
[2025-02-04 18:51] LABS: AST(SGOT) 51 U/L (<=31); Alanine Aminotransfer ALT/SGPT 41 U/L (<=34); Albumin, Serum 3.9 g/dL (3.4-4.8); Alkaline Phosphatase 81 U/L (35-104); Anion Gap 14 (5-15); BUN 9 mg/dL (4-19); BUN/Creat Ratio 12.1 RATIO (10-20); Calcium,Total 9.1 mg/dL (7.6-11.0); Carbon Dioxide 21.3 mmol/L (21.0-32.0); Chloride 108 mmol/L (98-108); Globulin 2.4 g/dL (2.2-4.2); Glucose 105 mg/dL (70-99); Potassium 2.7 mmol/L (3.3-5.1)
[2025-02-04 19:21] LABS: Iron Binding Capacity,Total 200 ug/dL (250-450)
[2025-02-04 19:28] LABS: FOLATES,SERUM (FOLIC ACID) 28.60 ng/mL (4.60-34.80)
== END | disposition home or self-care (01) ==
LOC: MFPLAB 14:18
PROVIDERS: PCP Family Medicine; Visit Provider Family Medicine
DX: E87.6 Hypokalemia (principal); D64.9 Anemia, unspecified
CPT/HCPCS: 80053; 82607; 82728; 82746; 83540; 83550; 83735; 85025

== ENCOUNTER → 2025-02-11 | Outpatient (CLI) | payer MEDICARE, SELFPAY ==
--- OUTSIDE RECORDS SUMMARY | 2024-12-26 12:45 | XMS RPT_ITS ---
Author Name Auto Generated Organization OHIP Care Team Providers Care Playground Official Name Role Phone GT MICHELE (RES) Admitting Unavail able WALLACE DEAN Attending Unavailable CONNIE GRULLON Consulting Unavailable PROBLEMS DATE TYPE CONDITION / CODE ATTENDING STATUS [facility] 01/16/2025 Active Hemopneumothorax on left / J94.2(ICD-10) WALLACE DEAN Active [facility] 12/26/2024 Active Closed fracture of multiple ribs of left side, initial encounter / S22.42XA(ICD-10) WALLACE DEAN Active [facility] 12/26/2024 Active Fall, initial en counter / W19.XXXA(ICD-10) WALLACE DEAN Active [facility] 12/26/2024 Active 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) / F10.939(ICD-10) WALLACE DEAN Active [facility] 12/26/2024 Active Pleural effusion / J90(ICD-10) WALLACE DEAN Active [facility] PROCEDURES No Procedure Records Found RESULTS NURSING PROG Observed: 01/16/2025 1:42 PM Status: COMPLETED Source: [facility] HNO ID: [id number] Author: ARLEEN DOLAN, BELEN Service: Nursing Author Type: Registered Nurse Type: Nursing Progress Note Filed: 01/16/2025 16:09 Note Text: Other: pt up to the bathroom with assist heart rates up to 140's and tele shows svt Pt asymptomatic BP 108/61 Pt back to bed You Delgado PA-C with trauma team notified ok to give 5mg PRN iv Lopressor as ordered and ok for d/c to [facility] at 1500. IV lopressor given 1425 Pt now in NSR heart rate in the 80's resting in bed 1600 pt d/c'd to [facility] via ambulance report called to Nicky GLOVER at [facility] Pt with all belongings PLAN OF CARE Observed: 01/16/2025 12:45 PM Status: COMPLETED Source: [facility] HNO ID: [id number] Author: MARTI FINCH RPh Service: Pharmacy Author Type: Pharmacist Type: Plan of Care Filed: 01/16/2025 12:46 Note Text: DISCHARGE MEDICATION REVIEW BY PHARMACY Patient Name: Cristino Verdugo Account #: Data Unavailable Admission Date: 12/26/2024 Date of Contact: January 16, 2025 Time of Contact: 12:45 PM Medication list was reviewed by a Pharmacist for drug interactions or drug related problems:Yes Below is a summary of pharmacist recommendations discussed with LIP: No recommendations at this time from discharge medication list. Patient is being discharged to [facility] Marti Finch RPh 01/16/2025 12:45 PM Medication List START taking these medications acetaminophen 500 mg tablet Commonly known as: TYLENOL Take 2 tablets by mouth every 8 hours as needed for pain. lidocaine 4 % patch Commonly known as: SALONPAS Apply 2 patches as directed once daily for 7 days. Start taking on: January 17, 2025 melatonin 3 mg tablet Take 2 tablets by mouth at bedtime as needed for insomnia. CHANGE how you take these medications metoprolol tartrate (short acting) 25 mg tablet Commonly known as: LOPRESSOR Take 1 tablet by mouth three times a day. What changed: how much to take when to take this CONTINUE taking these medications budesonide, enteric coated 3 mg 24 hr capsule Commonly known as: ENTOCORT EC fexofenadine 180 mg tablet Commonly known as: JERALD FLONASE ALLERGY RELIEF 50 mcg/actuation nasal spray Generic drug: fluticasone Ibandronate 150 mg tablet irbesartan 75 mg tablet Commonly known as: AVAPRO PLAVIX 75 mg tablet Generic drug: clopidogrel rosuvastatin 10 mg tablet Commonly known as: CRESTOR CNDS Observed: 01/16/2025 12:24 PM Status: COMPLETED Source: [facility] HNO ID: [id number] Author: WALLACE DEAN MD Service: General Surgery Author Type: Physician Supervisor Contact And Service Clerks Type: Discharge Summary Filed: 01/21/2025 10:11 Note Text: Attestation signed by Wallace Dean MD at 01/21/2025 10:11 AM Attending Attestation The patient will be discharged. I spent less than 30 minutes coordinating the discharge. Wallace Dean MD DISCHARGE SUMMARY PATIENT NAME: Cristino Verdugo Code Status: Full Code Highest Readmission Risk Score: 19 The 30 day readmissions risk score is derived from an internally validated risk model which evaluates patient level characteristics, utilization history, medication orders and lab results up until the day of discharge. Patients with a score of 39 or above are considered highest risk for readmission. Specific patient level drivers will be listed at the bottom of the summary. Admission Information Admission Information ADMIT DATE: 12/26/2024 DISCHARGE DATE: 01/16/2025 MY DOCTORS AND MEDICAL TEAM: My Main Hospital Doctor: Wallace Dean MD Primary Care Provider: No primary care provider on file. My Medical Team Members: Treatment Team: Attending Provider: Wallace Dean MD Consulting: Carlos Scott MD MY CONDITION AT DISCHARGE: Stable REASON I WAS IN THE HOSPITAL: Multiple left rib fractures and associated hemopneumothorax resulting from a fall requiring chest tube evacuation; alcohol withdrawal; UTI; anemia; C. Diff infection SUMMARY OF WHAT HAPPENED WHILE I WAS IN THE HOSPITAL: Cristino JuditFaizan Mehdi Verdugo presented to [facility] on 12/26/2024 as a trauma transfer from [facility] for treatment of injuries sustained during a reported fall. Examination, x-ray, and CT imaging revealed the following traumatic injuries: 1. Left 6-9 rib fractures with associated hemopneumothorax and subcutaneous emphysema 2. Left elbow contusion with small skin tear She underwent left chest tube insertion for evacuation of her hemopneumothorax on 12/27/2024 and was admitted to the ICU for close monitoring. She was treated for suspected alcohol withdrawal with a phenobarbital taper and had received both phenobarbital and Ativan at [place] prior to transfer. With regard to her chest wall injuries, pain was controlled with appropriate medications. Daily chest x-rays were obtained to monitor her injuries and her chest tube was eventually removed on 01/01/2025. Follow-up imaging included CT scans and x-rays remained stable and she was weaned to room air. Ms. Verdugo's admission was complicated by a number of non-injury related medical conditions including urinary retention, E. Coli urinary tract infection, alcohol withdrawal and delirium, C. Diff infection, a possible left psoas muscle abscess seen on repeat CT scan (ultimately determined to be a hematoma following aspiration and fluid analysis), supraventricular tachycardia, and acute blood loss anemia with concern for possible upper GI bleed. Urology was consulted for high volume urinary retention for which she required villela catheter placement. She would eventually pass a voiding trial on 01/09/2025 after one previous attempt and necessary reinsertion. She received a total of 7-days of Zosyn for an E. Coli UTI and an appropriate course of oral Vancomycin for her C. Diff infection. She would undergo aspiration of a possible psoas abscess with interventional radiology on 01/10/2025 and fluid analysis ultimately revealed that this suspicious area was hematoma (blood). She was followed by the infectious disease team and no further antibiotics were warranted. For her intermittent supraventricular tachycardia, she required periodic doses of IV Lopressor for rate control with improvement. She was started on metoprolol 25 mg three times daily and seen by the electrophysiology team who recommended continued medical management with the oral beta evon as scheduled and close follow-up evaluation with her established primary care physician and/or harnessmaker. With regard to her anemia and concern for possible GI bleed, she had one documented dark, tarry stool on 01/02/2025 and was started on a PPI. Her hemoglobin levels were trended daily and she did not require blood transfusions during admission. Gastroenterology was not consulted as her hemoglobin levels would stabilize and improve and no further suspicious stools were documented. Ms. Verdugo was assessed by physical and occupational therapy who recommended discharge to a jail facility. She was also assessed by speech therapy and her diet was slowly advanced as her mentation improved. She was ultimately discharged in stable condition on 01/16/2025. Ms. Verdugo would require close follow-up with her established primary care physician and/or harnessmaker. An appointment was also scheduled for her to follow-up with urology for her above noted urinary retention. OTHER PROBLEMS/DIAGNOSIS: Principal Problem (Resolved): Pneumothorax Active Problems: Fall Closed fracture of multiple ribs of left side Alcohol use Type 2 diabetes (HCC) History of stroke History of cholecystectomy IBS (irritable bowel syndrome) At risk for delirium SVT (supraventricular tachycardia) (HCC) Malnutrition of mild degree (HCC) Renal cyst DNR (do not resuscitate) discussion Frailty syndrome in geriatric patient Goals of care, counseling/discussion Neurodegenerative disorder Pain C. difficile colitis Resolved Problems: Hemopneumothorax on left Posttraumatic respiratory insufficiency Acute cystitis without hematuria Acute urinary retention Hypokalemia Hyponatremia Hypophosphataemia Delirium Constipation Psoas muscle abscess (HCC) Hemothorax OPERATIONS PERFORMED WHILE IN THE HOSPITAL: See below IMPORTANT TEST/PROCEDURES: 1. 12/27/2024- Left chest tube inserted 2. 12/28/2024- Left subclavian CVC (removed 12/30) 3. 01/10/2025- Left psoas muscle abscess aspiration with IR TEST RESULTS NOT AVAILABLE AT THIS TIME: No pending results Discharge Disposition Discharge Disposition: [facility]dc Facility - Less than 30 Days Activity When You Leave the Hospital Do not bend over at the waist to lift heavy objects May bathe and shower May walk with a walker No driving for: Until cleared by PCP No prolonged bedrest, longer than 8 hours in a 24 hour period Resume pre-hospital activity Diet Instructions Avoid Alcohol Resume your pre-hospital diet For Pain When You Leave the Hospital If you become constipated, you may use any nlcg-yqd-uakdiww treatment such as Milk of Magnesia, Sennakot, Prune Juice, Suppositories, etc. in addition to the stool softener/fiber supplement Use the dispensed medication (see prescription) Wound/Surgical Site Care Apply ice packs as needed Leave open to air Other: Ok to leave left chest tube incision open to air. Call Your Doctor If There is an unusual odor from the wound area You have lightheadedness, fainting, or confusion You have pain and swelling in your legs, especially if it is only on one side and not the other You have persistent nausea/vomiting over 24 hours You have redness, swelling, pus or drainage from the wound You have swollen glands or cold and clammy skin Your temperature is greater than 101F Follow Up Appointments Follow-Up Appointment You need to follow-up in the office for further monitoring of the renal cysts and urinary retention. Our office will contact you with an appointment. If you don't hear from us or have questions, please call [facility] at [phone]. With: urology When: In 2 weeks Follow-Up Appointment It is recommended that you follow-up with your established primary care physician within 2 weeks of hospital discharge. With: Established primary care physician When: In 2 weeks Patient/Parents to call for appointment?: Yes Additional Provider to Provider Information: No notes on file Treatment Team: Attending Provider: Wallace Dean MD Consulting: Carlos Scott MD FINAL DIAGNOSIS: See below Active Hospital Problems Diagnosis POA C. difficile colitis No DNR (do not resuscitate) discussion Unknown Frailty syndrome in geriatric patient Unknown Goals of care, counseling/discussion Unknown Neurodegenerative disorder Unknown Pain Unknown Renal cyst Yes Malnutrition of mild degree (HCC) Yes At risk for delirium Yes SVT (supraventricular tachycardia) (HCC) Yes Fall Yes Closed fracture of multiple ribs of left side Yes Alcohol use Yes Type 2 diabetes (HCC) Yes IBS (irritable bowel syndrome) Yes History of stroke Yes History of cholecystectomy Yes Resolved Hospital Problems Diagnosis POA Pneumothorax Yes Hemothorax Yes Psoas muscle abscess (HCC) Unknown Delirium Yes Constipation Unknown Acute cystitis without hematuria Clinically Undetermined Acute urinary retention Clinically Undetermined Hypokalemia No Hyponatremia No Hypophosphataemia Unknown Posttraumatic respiratory insufficiency Yes Hemopneumothorax on left Yes Transitions of Care Critical Issues: SPECIALIST FOLLOW-UP: Urology; PCP LABS AND PROCEDURES PENDING AT DISCHARGE: No pending results. INCIDENTAL OR ACTIONABLE FINDING (Last Refresh: 01/16/2025 12:24 PM) Test(s): CT ABD/PEL W IVCON FOLLOW-UP APPOINTMENTS ALREADY SCHEDULED WITH A [facility] PROVIDER: No future appointments. ALLERGIES Allergen Reactions Milk Containing Pro* Diarrhea Penicillins DISCHARGE MEDICATION: Medication List START taking these medications acetaminophen 500 mg tablet Commonly known as: TYLENOL Take 2 tablets by mouth every 8 hours as needed for pain. lidocaine 4 % patch Commonly known as: SALONPAS Apply 2 patches as directed once daily for 7 days. Start taking on: January 17, 2025 melatonin 3 mg tablet Take 2 tablets by mouth at bedtime as needed for insomnia. CHANGE how you take these medications metoprolol tartrate (short acting) 25 mg tablet Commonly known as: LOPRESSOR Take 1 tablet by mouth three times a day. What changed: how much to take when to take this CONTINUE taking these medications budesonide, enteric coated 3 mg 24 hr capsule Commonly known as: ENTOCORT EC fexofenadine 180 mg tablet Commonly known as: JERALD FLONASE ALLERGY RELIEF 50 mcg/actuation nasal spray Generic drug: fluticasone Ibandronate 150 mg tablet irbesartan 75 mg tablet Commonly known as: AVAPRO PLAVIX 75 mg tablet Generic drug: clopidogrel rosuvastatin 10 mg tablet Commonly known as: CRESTOR See progress noted dated 01/16/2025 for examination findings. The patient's risk for 30-day readmission is determined using the following contributing factors: Predictive Model Details 18% (Moderate) Factor Value Calculated 01/16/2025 05:20 10% procedure count 25 [facility] READMISSION RISK Model 8% Admission Provider Speciality GENERAL SURGERY 8% Malnutrition 1 -7% ED visits (365d) 0 -6% Admissions (365d) 1 4% Mondragon Nikolas 22 -3% Admissions (60d) 1 -3% Creatinine (Min) 0.55 3% diagnosis count 24 -3% ED Encounter 0 Plan of care discussed with Provider, RN, Patient I have performed the aijx-cn-gnaj and relevant services for a total of >30 minutes. SIGNATURE: You Delgado PA-C DATE: January 16, 2025 TIME: 12:24 PM CASE MANAGEM Observed: 01/16/2025 12:01 PM Status: COMPLETED Source: [facility] HNO ID: [id number] Author: SHAVONNE MEIER RN Service: Care Management Author Type: Registered Nurse Type: Care Mgt Progress Note Filed: 01/16/2025 12:03 Note Text: CARE MANAGEMENT DISCHARGE NOTE SERVICE DATE: January 16, 2025 SERVICE TIME: 12:02 PM Admission Date: 12/26/2024 LOS: 21 days Discharge Arrangement Discharge Arrangement: [facility]dc Facility Was an expedited discharge program used?: No Services Arranged Provider Name: [facility] [phone] Caregiver Assessment Caregiver is ready, willing and able to meet the patient's needs as recommended by the inter-professional team: Yes Name of Caregiver: SNF staff Transportation Arrangements Transportation Arrangements: Ambulance Transportation Agency and Phone #:: [facility] ( [facility] ) [phone] / [phone] Date of Trip: 01/16/25 Time of Trip: 1500 Type of Service: BLS Non-emergency Is Patient Medicaid Pending?: No Grain Buyer Location: [facility] Destination: [facility] Financial Care Management Responsibility: None Handoff Communication: Handoff to: Other Caregiver Other Caregiver Name/Phone: nurse to call report Additional Information: Patient to discharge to [facility]. [facility] transport via cot set up for patient at 3PM. Patient, son and nurse made aware. Transport folder complete and on the chart. SIGNATURE: Shavonne Meier RN PATIENT NAME: Cristino Verdugo DATE: January 16, 2025 TIME: 12:02 PM NUTRITION Observed: 01/16/2025 11:53 AM Status: [id number] Author: NANDA HENDRICKS RD Service: Nutrition Therapy Author Type: Registered Dietitian Type: Nutrition Filed: 01/16/2025 15:30 Note Text: NUTRITION THERAPY REASSESSMENT NOTE SERVICE DATE: 01/16/2025 SERVICE TIME: Start Time: 1153 Nutrition Assessment: Recommended Malnutrition Diagnosis: Moderate Protein-Calorie Malnutrition (01/16/25 1153 : Nanda Hendricks RD) In the context of: Chronic Illness or Injury Based on: Muscle Loss, Subcutaneous Fat Loss Nutrition Diagnosis: Problem: Suboptimal protein/energy intake Related to: Inability to consume sufficient nutrients As evidenced by: Patient/family self-report, Intake records Care Plan: Continue current diet Supplements: [employer] 1.0 (chocolate only, reduce to BID) Monitor and Evaluation: Meet greater than 75% of estimated needs, Monitor labs, I/Os, vital signs, weight, Monitor bowel function Discharge Recommendations: Diet, Oral Supplements Diet: 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 Oral Supplements: high mike/protein supplement/snack of choice 2-3x/day between meals Interval History: WOVEN LABEL DESIGNER re-evaluated AND is recommending regular/thin. General surgery following. Intake History: Nutrition Intake Prior to Admission: Greater than 75% estimated energy needs greater than or equal to 1 month. States she usually has a good appetite in general. Current Nutrition Intake: Less than 75% estimated energy needs Current Intake Over time: Greater than or equal to 7 days (21 days). Intake remains variable, appears slightly better upwards of 50%, but mostly 25%. Pt admits tsoday she does not like the food here. She is drinking about 2 [employer] shakes a day (650 kcals, 32 g protein) and has several in her room unopened. Prefers chocolate. Dosing Weight: 49.9 kg (110 lb) Dosing Weight Type: [place] body weight Estimated kilocalorie needs: 6560-4816 Calorie Calculation Method: 25-30 kcals/kg Estimated protein needs (grams): 60-75 Grams protein determined by: 1.2 - 1.5 g/kg Diet Orders (From admission, onward) Start Ordered 01/16/25 0745 DIET REGULAR START NOW Question: Liquid Consistency Answer: THIN LIQUID (L0) 01/16/25 0743 01/03/25 1045 DIET SUPPLEMENTS START NOW Question Answer Comment Supplement 1 [employer]ERRA [employer]ARMS 1.4 VANILLA Supplement 1 Frequency BREAKFAST Supplement 2 SIERRA FARMS 1.0 CHOCOLATE Supplement 2 Frequency LUNCH Supplement 3 SI[employer]RA FARMS 1.0 VANILLA Supplement 3 Frequency DINNER 01/03/25 1030 Anthropometrics: Height: 156.2 cm (5' 1.5") Weight: 52.1 kg (114 lb 13.8 oz) Usual Weight: 113.4 kg (250 lb) "6 months at least" Usual Weight Obtained From: Patient Body mass index is 21.35 kg/m?. Weight change percentage over time: bed weights have varied greatly throughout LOS from 114 lbs to 147 lbs. Weight Change: Unable to determine Physical Exam: Subcutaneous fat loss: Subcutaneous Fat Loss Assessed Orbital: Sightly dark circles, somewhat hollow look (Mild) Upper Arm (Triceps): Some depth to pinch, not ample fat (Mod) Thoracic and Lumbar: Ribs somewhat apparent, depressions not very pronounced (Mild) Muscle loss: Muscle Loss Assessed Temporalis: Slight depression (Mild) Clavicle: More prominent bone, less prominent muscle (Mild) Acromion: Acromion process slightly protrudes (Mild) Interosseous (Hand): Slight depression of muscle (Mod) Quadricep: Mild depression on inner thigh, kneecap more prominent (Mod) Gastrocnemius: Not well-developed muscle (Mod) Potential micronutrient deficiency: Teeth, Tongue Edema/Ascites: No edema GI Symptoms: Diarrhea Stool Amount: Improved Stool Consistency: Watery (01/16) Functional Status: Regressed Potential Signs of Inflammation: Tachycardia, Chronic conditions: HTN, IBS MNT Billing: $ Reassessment: 1 unit Time Spent (mins): 14 SIGNATURE: Nanda Hendricks RD PATIENT NAME: Cristino Verdugo DATE: January 16, 2025 TIME: 11:53 AM CASE MANAGEM Observed: 01/16/2025 11:13 AM Status: COMPLETED Source: [facility] HNO ID: [id number] Author: SHAVONNE MEIER RN Service: Care Management Author Type: Registered Nurse Type: Care Mgt Progress Note Filed: 01/16/2025 11:13 Note Text: CARE MANAGEMENT PROGRESS NOTE SERVICE DATE: 01/16/2025 SERVICE TIME: 11:13 AM LOS: 21 days IMM Follow Up Copy Given: Yes Copy given to:: Patient Tv Host Tv Host Name/Relationship: PANKAJ VERDUGO [phone] Method: By Phone Verbalizes understanding SIGNATURE: Shavonne Meier RN PATIENT NAME: Cristino Verdugo DATE: January 16, 2025 TIME: 11:13 AM THERAPY NT Observed: 01/16/2025 9:40 AM Status: COMPLETED Source: [facility] HNO ID: [id number] Author: JUAN MANUEL BEASLEY CCC-WOVEN LABEL DESIGNER Service: Speech/Swallow Author Type: Speech Language Pathologist Type: Therapy (PT/OT/Speech/Resp) Filed: 01/16/2025 09:41 Note Text: Speech Therapy Treatment SERVICE DATE: 01/16/2025 SERVICE TIME: 0900 to 0910 ROOM: [place] [id number] IMPRESSION Functional oropharyngeal phases of swallowing: without identified risk for aspiration RECOMMENDATIONS Diet Recommendations Regular Consistency Thin Liquids IDDSI Level 0 Swallow Strategy Recommendations Feed / Eat at a slow rate Sit upright 90 degrees for all PO Small Bite/Sip Supervision/Assistance for meals Nursing Recommendations Reinforce use of swallowing strategies Response to Therapy Interventions: Good participation in activities Rehabilitation Precautions: Cognitive Linguistics Deficits DISCHARGE RECOMMENDATIONS Recommended Discharge Disposition: Subacute/SNF Recommended Discharge Disposition Comments: for PT and OT CURRENT HOSPITAL COURSE Transfer from [place] post fall. 12/28 CTA Chest: focal opacity at left lung base. 01/07 CT chest: 1. No pneumothorax. 2. Trace left pleural effusion. 3. Minor scattered areas of linear atelectasis or scarring bilaterally. Reason for Speech Therapy Consult: dysphagia Relevant Past Medical History: GERD, ETOH use disorder HOME ENVIRONMENT / PRIOR FUNCTIONAL LEVEL Prior Functional Level: Required Assistance Patient Lives With: Family (son) Assistance Available: PRN Prior Swallowing Function/Diet Textures: Regular Consistency, Thin Liquids IDDSI Level 0 SUBJECTIVE Patient alert and able to participate in therapy, diet upgraded by team to increase options for meals. THERAPY DIAGNOSIS No Skilled Need TREATMENT INTERVENTIONS $ Dysphagia Therapy ([id number]) Billed Units: 1 unit Dysphagia Therapy ([id number]) Skilled Treatment Time (minutes): 10 TRAINING AND EDUCATION PROVIDED IN Swallowing Strategies, Dysphagia Management, Dietary Consistencies THERAPEUTIC SKILLS USED Verbal cuing, Discharge planning, Education on role of discipline / importance of activity OBJECTIVE Current Status Oral Hygiene: Clear, moist oral cavity Dentition: Retains Natural Dentition Current Feeding Method: Oral Current Diet Textures: Regular Consistency, Thin Liquids IDDSI Level 0 Current Level Of Communication: Verbal Current Management Of Secretions: Able to self-manage Oral Motor Exam: Within Functional Limits SWALLOW ASSESSMENT Position Of Patient During Assessment: Upright In Chair Feeding Method: Patient Self-Fed Consistencies Presented: Thin Liquids IDDSI Level 0, Pureed Solids IDDSI Level 4, Solid Compensatory Strategies Utilized During Assessment: Feed / Eat at a slow rate, Sit upright 90 degrees for all PO, Small Bite/Sip, Supervision/Assistance for meals. -Mastication timely for solids -No oral residuals post swallow -Laryngeal movement detected upon palpation of swallow -No cough, throat clear, or change in vocal quality with po trials -Completed 3 oz water challenge with no cough, throat clear, or change in vocal quality -Oropharyngeal swallow function appears clinically WFL at this time -Recommend diet and strategies as above -Cannot rule out aspiration with clinical assessment only, if further concern, recommend instrumental assessment -Will sign off, please re-consult if change in Patient status GOALS SWALLOWING: Patient / Caregiver will demonstrate knowledge of taught compensatory strategies and dietary consistency recommendations to optimize functional swallow function without overt clinical signs and symptoms of aspiration or dysphagia Swallow Goals: - all goals met 01/16/2025 Patient will tolerate Soft and Bite-Sized IDDSI Level 6 diet consistency while utilizing compensatory/swallowing strategies given minimal cues in 90% of trials so that the patient will minimize the signs/symptoms of dysphagia. Patient will tolerate Thin Liquids IDDSI Level 0 consistency while utilizing compensatory/swallowing strategies given minimal cues in 90% of trials so that the patient will minimize the signs/symptoms of dysphagia. Patient, Caregiver, Family will demonstrate adequate return of knowledge of all compensatory strategies/instruction to effectively assist the patient in immediate safety with oral intake and swallowing. Patient will participate with swallow re-assessment to determine if food and drink texture can be safely upgraded vs need for instrumentation. Speech Rehab Potential: Good Good Rehab Potential Due To: Good overall health status, Current objective clinical presentation, Good support system/ coping skills, Good motivation Progress Toward Goals: Goal Met Patient /Caregiver Goals: Eat/Drink Without Restrictions ACUTE CARE TREATMENT PLAN ST Frequency: Discontinue Therapy Services Reasons Inpatient Therapy Services Discontinued: Patient appears safe and appropriate re: communication, cognition, and swallow function with the ability to return to a baseline level of function Treatment Interventions: Dysphagia Management Plan of Care Developed with: Patient, Nurse Plan for next visit: Dietary Consistencies, Dysphagia Management, Swallowing Strategies SIGNATURE: Juan Manuel Beasley [facility] PATIENT NAME: Cristino Verdugo DATE: January 16, 2025 TIME: 9:40 AM THERAPY NT Observed: 01/16/2025 8:30 AM Status: COMPLETED Source: [facility] HNO ID: [id number] Author: ELROY MORE PT Service: Physical Therapy Author Type: Physical Therapist Type: Therapy (PT/OT/Speech/Resp) Filed: 01/16/2025 08:33 Note Text: Physical Therapy Treatment Summary SERVICE DATE: 01/16/2025 SERVICE TIME: 2 to 0815 ROOM: [place] [address] PT 6 Clicks Score: 18 DISCHARGE RECOMMENDATIONS Subacute/SNF Recommended Discharge Disposition Comments: Patient continues to be at high fall risk. Recommend SNF setting PT at d/c ASSESSMENT Response to Therapy Interventions: Cognitive Deficits, Good Participation in Activities, Low Activity Tolerance Patient with ongoing PT goals, requiring contact-min assist with all mobility. Patient pleasantly confused and easily distracted by environment, however able to be redirected. Patient well below baseline, continues to be recommended for SNF at discharge. PRECAUTIONS Fall Risk, Bed/Chair Alarm CURRENT HOSPITAL COURSE Patient had a fall was transferred from [facility] 813 admitted to the ICU has rib fractures on the left side hemopneumothorax emphysema chest tube. INFORMATION SECURITY on 12/31/24 for suspected SVT with HR in 180s. Increase in delirium. Pt on regular nursing floor now, +cdiff Relevant Past Medical History: etoh abuse, fibro HOME LIVING Patient Lives With: Family (son) Assistance Available: Other: See Comment Comments: 2 Equipment Owned: Walker- Wheeled PRIOR FUNCTIONAL LEVEL Within Functional Limits indep at home no AD lives with son SUBJECTIVE Patient pleasantly confused, agreeable to PT session THERAPY DIAGNOSIS Reduced mobility-other, Muscle Weakness (generalized), Unsteadiness on feet TREATMENT INTERVENTIONS Therapeutic Exercise (02258), Therapeutic Activity (39412) Therapeutic Exercise (87692) Treatment Minutes: 15 $ Therapeutic Exercise (41268) Billed Units: 1 unit Patient completed seated therapeutic exercises: Instruction for upright posture with slow controlled speed for optimal strengthening. Heel raises x10 Toe raises x10 LAQ x10 BLE Seated marches x20 Hip adduction squeezes x10 Scapular squeezes x10 Shoulder shrugs x10 Cervical rotation x5 each Cervical flexion/extension x5 each Standing exercises: using walker for UE support while completing, cues for upright posture and breathing throughout Hamstring curls x10 bilateral lower extremity Marches x20 Hip abduction x10 BLE Therapeutic Activity (08803) Treatment Minutes: 8 $ Therapeutic Activity (44523) Billed Units: 1 unit Cues/assist with transfers and ambulation as listed in grid below. Cues for hand placement, sequencing and breathing throughout. Completed multiple sit to/from stand transfers with contact assist, min assist with ambulation. No overt loss of balance or postural sway with walker, however min assist due to poor safety awareness. Timed Code Treatment (minutes): 23 Skilled Treatment Time (minutes): 23 TRAINING AND EDUCATION PROVIDED Assistive Device Use, Bed Mobility, Benefits of In-Hospital Mobility, Exercise Program, Falls Prevention, Gait Pattern, Reduction of Deviations, Positioning, Pre-gait Activities, Role of Physical Therapy, Sitting Balance, Standing Balance, Transfers, Energy Conservation THERAPEUTIC SKILLS USED Activity Dosing, Cuing Tactile, Cuing Verbal, Cuing Visual, Physical Assist, Muscle Activation Facilitation, Movement Facilitation FUNCTIONAL STATUS mobility performed during session in bold, other mobility completed during prior session and may no longer be correct or appropriate to complete. Bed Mobility Supine To Sit: Moderate Assistance, Additional Information Sit to Supine: Minimal Assistance, Additional Information cues to lower onto side, requiring assist to clear LE at edge of bed Scooting: Contact Guard Assistance, Additional Information cues for weight shifting, assist with draw sheet Transfers Sit To Stand: Contact Guard Assistance, Additional Information cues for hand placement, power through LE Stand To Sit: Contact Guard Assistance, Additional Information cues for positioning, hand placement, controlled descent Bed to Chair Gait Minimal Assistance, Additional Information patient ambulating with slower gait, cues for upright posture, visual scanning and walker proximity, patient requires increased time to complete turns and negotiate obstacles, easily distracted by surroundings Gait Device: Wheeled Walker General Deviations/Observations: Rakel decreased, Flexed trunk posture, Step length decreased, Improper distancing from assistive device Gait Distance (feet): 25' x 4 (x2) Stairs GOALS Able to Perform HEP with: Independent Transfer Supine to/from Sit with: Independent Transfer Sit to/from Stand with: Independent Ambulate with: Independent Distance: 50 Device: Wheeled Walker Rehab Potential: Fair Progress Toward Goals: Progressing as expected ACUTE CARE TREATMENT PLAN PT Frequency: 3 Times Per Week (1-3) Treatment Interventions: Education, Strengthening, Functional Mobility Training, Balance Training SIGNATURE: Elroy More PT PATIENT NAME: Cristino Verdugo DATE: January 16, 2025 TIME: 8:30 AM PROGRESS Observed: 01/16/2025 7:43 AM Status: COMPLETED Source: [facility] HNO ID: [id number] Author: YOU DELGADO PA-C Service: General Surgery Author Type: Physician Supervisor Contact And Service Clerks Type: Progress Notes Filed: 01/16/2025 07:47 Note Text: Trauma Surgery Progress Note SERVICE DATE: 01/16/2025 Trauma Service Pager: For questions or concerns Mon-Tue 6a-5p please page [phone]. After 5pm and on Weekends and Holidays, please page [phone] if in ICU or [phone] if on RNF. SUBJECTIVE: NAEON. Pain controlled. More alert and oriented compared to previous encounters. Requests regular diet. Some residual left chest wall soreness and stiffness. Ambulating with a walker. OBJECTIVE: Vitals: Temp (24hrs), Av.1 ?C (98.8 ?F), Min:36.8 ?C (98.2 ?F), Max:37.7 ?C (99.9 ?F) BP 134/71 Pulse 84 Temp 37.3 ?C (99.1 ?F) Resp 16 Ht 156.2 cm (5' 1.5") Wt 56.2 kg (123 lb 14.4 oz) SpO2 98% BMI 23.03 kg/m? O2 Therapy: Room Air IANDO: Date 01/15/25 07 - 01/16/25 0659 01/16/25 07 - 01/17/25 0659 Shift 1046-2976 9817-8464 8141-8067 24 Hour Total 0723-6273 2344-2749 4180-8449 24 Hour Total INTAKE PO 240 240 Supplements (mL) 240 240 Shift Total 240 240 OUTPUT Urine Urine Not Saved. 3 x 3 x 6 x # of BMs Number of BMs 1 x 1 x Shift Total Weight (kg) 56 56 56.2 56.2 56.2 56.2 56.2 56.2 MEDICATIONS: Current Facility-Administered Medications Medication Dose Route Frequency oxyCODONE IR 2.5-5 mg tab(s) (ROXICODONE) 2.5-5 mg ORAL q 6 H PRN thiamine 200 mg tab(s) (VITAMIN B1) 200 mg ORAL/FEEDING TUBE TID iv contrast (radiology procedure) INTRAVENOUS DIRECTED PRN acetaminophen 1,000 mg tab(s) (TYLENOL) 1,000 mg ORAL TID budesonide, enteric coated 9 mg cap(s) (ENTOCORT EC) 9 mg ORAL DAILY metoprolol tartrate (short acting) 25 mg tab(s) (LOPRESSOR) 25 mg ORAL q 8 H enoxaparin 30 mg injection (LOVENOX) 30 mg SUBCUTANEOUS q 12 HR therapeutic multivitamin-minerals tablet (THERA-M PLUS) 1 tablet ORAL DAILY melatonin 6 mg tab(s) 6 mg ORAL DAILY (8 PM) pantoprazole 40 mg injection (PROTONIX) 40 mg INTRAVENOUS BID AC (0600/1600) metoprolol 5 mg injection (LOPRESSOR) 5 mg INTRAVENOUS q 6 H PRN folic acid 1 mg tab(s) 1 mg ORAL DAILY lidocaine 4 % 2 patch (SALONPAS) 2 patch TRANSDERMAL DAILY And lidocaine patch - REMOVE OTHER AT BEDTIME And lidocaine - VERIFY PATCH OTHER q 8 H ipratropium-albuterol 3 mL nebulizer solution (DUONEB) 3 mL INHALATION q 6 H PRN cetirizine 10 mg tab(s) (ZYRTEC) 10 mg ORAL DAILY rosuvastatin 10 mg tab(s) (CRESTOR) 10 mg ORAL AT BEDTIME NaCl 0.9% iv flush bag 20 mL INTRAVENOUS PRN ondansetron 4 mg tab(s) (ZOFRAN) 4 mg ORAL q 6 H PRN Or ondansetron (PF) 4 mg injection (ZOFRAN) 4 mg INTRAVENOUS q 6 H PRN Labs: Recent Labs 01/16/25 0344 01/15/25 0519 NA 136 136 K 3.9 3.9 CHLOR 106 105 CO2 18* 16* BUN 13 11 CREAT 0.71 0.62 GLUC 90 85 ANION 12 15 CA 9.1 9.0 WBC 5.11 4.66 HB 9.4* 9.7* HCT 29.3* 29.9* PLT 372 330 PHYSICAL EXAM: Genl: Appears age appropriate. No acute distress. Resting comfortably. Head/Face: Normocephalic. Atraumatic. Eyes: EOMI. Sclera not icteric, not injected Resp: Breathing is non-labored on RA. Left chest wall tenderness without crepitus. CVS: RRR as above; 2+ pulses at RA, DP, PT bilat. GI: Abdomen is soft, non-tender, not distended. Bowel sounds normoactive. No peritonitis. MSK: Extremities without clubbing, cyanosis, edema. Normal ROM x 4. Skin: Warm and dry. Not jaundiced. Resolved left forearm edema. Ecchymosis to left upper extremity. Scattered ecchymosis to right upper extremity. Ecchymosis to left chest, hip resolving. Neuro: AANDOx3. Strength and sensation normal. BRAGA. Psych: Calm, cooperative. ASSESSMENT AND PLAN: Assessment Active Hospital Problems Diagnosis Date Noted Pneumothorax 12/26/2024 Hemothorax 01/11/2025 C. difficile colitis 01/08/2025 Psoas muscle abscess (HCC) 01/08/2025 Delirium 01/07/2025 Constipation 01/07/2025 DNR (do not resuscitate) discussion 01/07/2025 Frailty syndrome in geriatric patient 01/07/2025 Goals of care, counseling/discussion 01/07/2025 Neurodegenerative disorder 01/07/2025 Pain 01/07/2025 Renal cyst 01/04/2025 Malnutrition of mild degree (HCC) 01/03/2025 At risk for delirium 12/31/2024 Acute cystitis without hematuria 12/31/2024 Acute urinary retention 12/31/2024 Hypokalemia 12/31/2024 Hyponatremia 12/31/2024 SVT (supraventricular tachycardia) ([facility]) 12/31/2024 Hypophosphataemia 12/31/2024 Posttraumatic respiratory insufficiency 12/27/2024 Fall 12/26/2024 Closed fracture of multiple ribs of left side 12/26/2024 Hemopneumothorax on left 12/26/2024 Alcohol use 12/26/2024 Type 2 diabetes (HCC) 12/26/2024 Chronic IBS (irritable bowel syndrome) 12/26/2024 Chronic History of stroke 2013 Chronic History of cholecystectomy 2008 Chronic Assessment: 79-year old female s/p mechanical fall on 12/26/24 (Trauma transfer from [place]) Imaging performed: CT HNCAP ([place] [facility], 12/26) CXR, XR left elbow/forearm (12/26) CXR x 2 (12/27) CXR x 3, CTA chest, CTAP (12/28) CXR (12/29) CXR (12/30) CXR (12/31) CT brain, CXR x 2, KUB (01/01) CXR (01/02) CXR (01/03) CXR (01/04) DVT US BUE (01/05) CT EMMANUEL (01/07) XR left femur (01/08) Traumatic Injuries: Left 6-9 rib fractures with associated hemopneumothorax and subcutaneous emphysema Left elbow contusion with small skin tear Operations/Procedures: 1. 12/27/2024- Left chest tube inserted 2. 12/28/2024- Left subclavian CVC (removed 12/30) 3. 01/10/2025- Left psoas muscle abscess aspiration with IR Care Plan: Left rib fractures with hemopneumothorax S/p left chest tube insertion 12/27/24 CT to water seal 12/28, removed 01/01 CXR (01/04): Persistent left lung base focal opacity CT chest (01/07): Trace left pleural effusion Respiratory status stable on RA Aggressive pulmonary hygiene Multimodal pain control Mobilize as tolerated ETOH abuse, delirium Patient reports daily wine consumption 3-4 glasses Received Phenobarbital and Ativan at [facility] and during transfer Phenobarb taper discontinued 2/2 sedation CIWA protocol Continue Thiamine, Folate Social work consult Hold Seroquel due to drowsiness Continue Melatonin at Geriatrics consulted, appreciate recommendations Acute urinary retention Villela inserted 12/28 due to high volume retention Villela catheter removed 12/31 and void trial initiated Required straight catheterization x 1 due to continued retention on 01/01 Villela catheter reinserted 01/02 due to high volume retention Urology consulted, appreciate recommendations Per urology: Consider formal urology driven void trial prior to discharge if milestones of mentation at baseline, improvement in ambulation, and having regular bowel movements are met Void trial initiated 01/09, patient voiding without difficulty following removal Follow-up with urology outpatient for work-up of urinary retention and renal cyst Leukocytosis WBCs WNL Afebrile, HDS Respiratory status stable on RA Blood cultures (12/28): NGTD UA (12/28): +WBCs, leuks UC (12/28): +E.Coli Repeat UA (01/01): +WBCs, leuks Received Zosyn x 7 days for UTI (12/28-12/31 and (01/02-01/06) C.diff PCR (01/02): Positive C.diff EIA (820): Negative PO Vancomycin QID completed (01/03-01/12) CT CAP (01/07): Interval development of abnormal asymmetric enlargement of the left psoas muscle with central area of hypodensity measuring 2 cm. This finding is concerning for possible myositis and developing abscess. ID and IR consulted, appreciate recommendations Left psoas muscle wound culture (01/10): Ngx3d (final) ID signed off (01/14) - PO Vanc completed SVT Patient with episodes of SVT necessitating IV Metoprolol for conversion to SR ECHO (01/02): EF 60%, mild concentric LVH, LV/RV function normal, mild 1+-2+ AV regurg Consider increasing PO Metoprolol from 12.5 mg TID to 25 mg TID if HR remains uncontrolled PRN IV Metoprolol 5 mg every 6 hours for HR > 120 EP consulted, appreciate recommendations Per EP: SVT likely related to ETOH abuse, electrolyte disturbances, and post-fall inflammation from hemopneumothorax and rib fractures. Continue Metoprolol 25 mg TID. Should she have prolonged recurrences of SVT, a combination of Cardizem CD 120 mg along with beta evon may be considered. No indication for antiarrhythmic at this time. Continuous cardiac monitoring Monitor electrolytes and supplement as needed Acute blood loss anemia, ?UGIB- Stable Hgb 9.4 from 9.7 from 9.6 from 8.5 +Tarry stool x 1 on 01/02/25 Likely in setting of NSAID administration with history of IBD Okay for DVT chemoprophylaxis; if Hgb continues to decrease, consult GI Continue Pantoprazole BID Transfuse for Hgb < 7.0 or for signs of bleeding Trend daily CBC SOUND consulted for medical management, appreciate recommendations Continue home medications as ordered Current diet order: DIET REGULAR Pain regimen: Scheduled Tylenol, Lidocaine patch, PRN Oxycodone Bowel regimen: None Labs: As above PPX: DVT: Lovenox 30 mg BID, SCDs, mobilize Ulcer: Pantoprazole BID Vit D level if > 65 yo: 46.4 Consulted Services: SICU ID EP SOUND IR PT/OT Social work Dispo Planning: PT/OT recommend SNF. Case management following. Medically stable for discharge to SNF. Incidentals: None Follow Up Needs: PCP Staff Trauma Surgeon: Dr. Dean Portions of text from this note were copied from prior patient encounter. All relevant information was updated to reflect most-recent clinical decision-making and plan of care 01/16/2025. SIGNATURE: You Delgado PA-C PATIENT NAME: Cristino Verdugo DATE: 01/16/2025 TIME: 7:44 AM Pager: see below Trauma Service Pager: For questions or concerns Mon-Tue 6a-5p please page [phone]. After 5pm and on Weekends and Holidays, please page [phone] if in ICU or [phone] if on RNF. INPATIENT ATTENDING: Dr. Dean High-Risk Geriatric Patient Vulnerabilities: Impaired Cognition, Impaired Functional Status, and Malnutrition Diet: DIET REGULAR Recommendations: Cognition: Impaired Cognition (Consult Geriatrics) bCAM Score (Calc): Negative Delirium Screen Confusion Assessment Method (CAM - ICU Score): (!) Positive Geriatric Consult (Age over 85 or impaired cognition):Consult to [employer] Palliative Care/Hospice: Consult not required Rehab/Therapy: PT/OT Recommendations: PT: Recommended Discharge Disposition: Subacute/SNF OT: Recommended Discharge Disposition: Subacute/SNF Swallow: Swallow Screening Result - Step 2: PASSED Swallow Screen - Patient Able To Swallow 3 Ounce Cup of Water Without Exhibiting Signs Of Aspiration Speech Recommendations: Speech: Recommended Discharge Disposition: Continued Skilled Speech Therapy Speech Diet: Diet Recommendations: Soft and Bite-Sized IDDSI Level 6, Thin Liquids IDDSI Level 0 Nutrition: Consult to Nutrition Therapy Nutrition Recommendations: MST: Total MST Score (Calculated): 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 diet (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) Supplements: Tracour 1.4, Tracour 1.0 Refer to: Speech/Language (eval to ensure diet appropriate for pt give confusion.) Vitamins and Minerals: Multivitamin with minerals Medications: Appetite stimulants Discharge Recommendations: Diet, Oral Supplements Diet: 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 Oral Supplements: high mike/protein supplement/snack of choice 2-3x/day between meals Pharmacy: Consult not needed Social Work: NA Anticipated Discharge Disposition: Fdc Facility BAS METAB 1999 PNL SERPL Collected: 07/2024 3:44 AM Status: F Source: [facility] Order Comment: Specimen Type : BLOOD SPECIMEN Ordering Facility: [facility] Address: [address] [place] [address] TYPE CODE TESTS RESULT OUT OF RANGE REFERENCE UNITS LAB 2345-7(LOINC) Glucose [facility] 90 74-99 mg/dL Result Comment: The [place] Diabetes Association (ADA) provides guidance for cutoff values for fasting glucose and random glucose. The ADA defines fasting as no caloric intake for at least 8 hours. Fasting plasma glucose results between 100 to 125 mg/dL indicate increased risk for diabetes (prediabetes). Fasting plasma glucose results greater than or equal to 126 mg/dL meet the criteria for diagnosis of diabetes. In the absence of unequivocal hyperglycemia, results should be confirmed by repeat testing. In a patient with classic symptoms of hyperglycemia or hyperglycemic crisis, random plasma glucose results greater than or equal to 200 mg/dL meet the criteria for diagnosis of diabetes. Reference: Standards of Medical Care in Diabetes 2016, [place] Diabetes Association. Diabetes Care. 2016.39(Suppl 1). LAB 3094-0(LOINC) BUN SerPl-mCnc 13 7-21 mg/dL LAB 2160-0(LOINC) Creat SerPl-mCnc 0.71 0.58-0.96 mg/dL LAB 2951-2(LOINC) Sodium SerPl-sCnc 136 136-144 mmol/L LAB 2823-3(LOINC) Potassium SerPl-sCnc 3.9 3.7-5.1 mmol/L LAB 2075-0(LOINC) Chloride SerPl-sCnc 106 98-107 mmol/L LAB 2028-9(LOINC) CO2 SerPl-sCnc 18 Low 22-30 mmol/L LAB 1863-0(LOINC) Anion Gap4 SerPl-sCnc 12 8-15 mmol/L LAB 63079-0(LOINC) Calcium SerPl-mCnc 9.1 8.5-10.2 mg/dL LAB 01870-1(LOINC) eGFRcr SerPlBld CKD-EPI 2020 88 >=60 mL/min/1. 73m??? Result Comment: Estimated Gl omerular Filtration Rate (eGFR) is calculated using the 2020 CKD-EPI creatinine equation. This equation utilizes serum creatinine, sex, and age as parameters. The creatinine assay has traceable calibration to isotope dilution-mass spectrometry. Refer to KDIGO guidelines for clinical interpretation. In patients with unstable renal function, e.g. those with acute kidney injury, the eGFR may not accurately reflect actual GFR. Performed By: #### [id number] # ### [facility] CLIA [id number] [address] [place] [address] [place] CBC PNL BLD AUTO Collected: 01/16/2025 3:44 AM Statu s: F Source: [facility] Order Comment: Specimen Type : BLOOD SPECIMEN Ordering Facility: [facility] Address: [address], [place] [address] TYPE CODE TESTS RESULT OUT OF RANGE REFERENCE UNITS LAB 6690-2(INC) WBC # Bld Auto 5.11 3.70-11.00 k/uL LAB 789-8(LOINC) RBC # Bld Auto 2.71 Low 3.90-5.20 m/ uL LAB 718-7(LOINC) Hgb Bld-mCnc 9.4 Low 11.5-15.5 g/dL LAB 4544-3([facility]) Hct VFr Bld Auto 29.3 Low 36.0-46.0 % LAB 787-2(LOINC) MCV RBC Auto 108.1 High 80.0-100.0 fL LAB 785-6(INC) MCH RBC Qn Auto 34.7 High 26.0-34.0 pg LAB 786-4(INC) MCHC RBC Auto-mCnc 32.1 30.5-36.0 g/dL LAB 10491-9([facility]) RDW RBC-Rto 14.4 11.5-15.0 % LAB 777-3([facility]) Platelet # Bld Auto 372 150-400 k/uL LAB 82664-7([facility]) PMV Bld Auto 9.4 9.0-12.7 fL LAB 771-6(INC) nRBC # Bld Auto <0.01 <0.01 k/uL Performed By: #### [id number] # ### [facility] CLIA [id number] [address] NURSING PROG Observed: 01/15/2025 6:36 PM Status: COMPLETED Source: [facility] HNO ID: [id number] Author: ARLEEN DOLAN, RN Service: Nursing Author Type: Registered Nurse Type: Nursing Progress Note Filed: 01/15/2025 18:48 Note Text: Other: pt up to bathroom with assist heart rate up to 140-150's svt on tele. Pt is asymptomatic Pt back to bed and 5mg IV lopressor given 1848 Pt in NSR heart rate 80 Arleen Dolan RN THERAPY NT Observed: 01/15/2025 12:04 PM Status: COMPLETED Source: [facility] HNO ID: [id number] Author: SAMMIWASHINGTON HOGUE OTR/L Service: Occupational Therapy Author Type: Occupational Therapist Type: Therapy (PT/OT/Speech/Resp) Filed: 01/15/2025 15:28 Note Text: Occupational Therapy Treatment Summary SERVICE DATE: 01/15/2025 SERVICE TIME: 1131 to 1147 ROOM: [id number] 6 Clicks Score: 15 DISCHARGE RECOMMENDATIONS Subacute/SNF Recommended Discharge Disposition Comments: patient not at functional baseline. Recommended Discharge Disposition Due to: ADL impairment, Patient requires daily (5x/week) skilled therapy at next level of care., Cognitive deficits new/worsened ASSESSMENT Response to Therapy Interventions: Good Participation in Activities, Multiple Ongoing Medical Issues, Pain, Requires Encouragement to Complete Activities Pt progressing well, making good progress towards goals, none yet met. Tolerates EOB sitting and walking around with device in room well this session. Continue to recc SNF at d/c Pt supine in bed sleeping upon arrival, arouses to verbal and tactile stimuli. Pt completes ADLs sitting EOB, tolerates well. Pt requires encouragement to participate in activities, repeatedly asks to return to bed. Pt walks around in room, no LOB observed. Pt able to hold conversation about novel she's reading throughout activities. Pt walks to chair. Pt in recliner chair at EOS. PRECAUTIONS Bed/Chair Alarm, Fall Risk CURRENT HOSPITAL COURSE Patient had a fall was transferred from [place] [address] admitted to the ICU has rib fractures on the left side hemopneumothorax emphysema chest tube. INFORMATION SECURITY on 12/31/24 for suspected SVT with HR in 180s. Increase in delirium. Pt on regular nursing floor now. Relevant Past Medical History: etoh abuse, fibro HOME LIVING Patient Lives With: Family (son) Assistance Available: Other: See Comment Comments: 2 Equipment Owned: Walker- Wheeled PRIOR FUNCTIONAL LEVEL Within Functional Limits indep at home no AD lives with son SUBJECTIVE Pt pleasant, agreeable to therapy COGNITION Orientation Deficits: Not oriented to Time, Not oriented to Situation, Confused Responsiveness: Alert, Awake Follows Commands: 2-step Commands, Cueing Needed Cueing to Follow Commands: Minimum Attention Deficits: Distractible, Divided Executive Function Deficits: Sequencing, Insight to Deficits, Problem Solving, Safety Awareness Confusion Assessment Method (CAM - ICU Score): (!) Positive (01/04/25) 4AT Score: (!) 4 (01/15/25) Name of LIP Notified of New Positive 4AT Score: known positive, delirium protocol in place (01/15/25) Delirium Positive/Negative: Positive (01/15/25) THERAPY DIAGNOSIS Reduced mobility-other, Decreased activities of daily living (ADL), General symptoms and signs-other, Signs and Symptoms Involving Cognitive Functions and Awareness TREATMENT INTERVENTIONS Self Intermediate Management (95922) Timed Code Treatment (minutes): 16 Skilled Treatment Time (minutes): 16 Self Intermediate Management (29803) Treatment Minutes: 16 $ Self Intermediate Management (89593) Billed Units: 1 unit TRAINING AND EDUCATION PROVIDED Activity Adaptation/Compensatory Strategies, Adaptive Equipment/DME, Assistive Device Use, Bed Mobility, Benefits of In-Hospital Mobility, Command Following, Fine Motor Coordination, Functional Mobility Involving ADLs, Grooming Tasks, Role of Occupational Therapy, Safety/Judgment, Sitting Balance to Improve [place] with ADLs/Self-Care, Standing Balance to Improve [place] with ADLs/Self-Care THERAPEUTIC SKILLS USED Activity Dosing, Cues for Sequencing/Proper Technique for Activity, Cuing Verbal, Cuing Tactile, Movement Facilitation, Physical Assist, Therapeutic Use of Self FUNCTIONAL STATUS mobility performed during session in bold, other mobility completed during prior session and may no longer be correct or appropriate to complete. Activities of Daily Living Assist Level Additional Information Feeding Set Up Grooming Minimal Assistance, Additional Information at EOB, pt declined to complete in BR. Pt required assist to comb back portion of hair d/t knots Bathing Upper Body Minimal Assistance Bathing Lower Body Maximal Assistance Dressing Upper Body Minimal Assistance Dressing Lower Body Maximal Assistance Toileting Moderate Assistance Mobility Assist Level Additional Information Bed Mobility Supine To Sit: Minimal Assistance, Additional Information Pt able to complete with little to no difficulty, requires assist to boost into upright position, able to move LE to EOB Sit To Supine: Contact Guard Assistance Sit to Stand Minimal Assistance, Additional Information Pt able to complete using FWW for balance/support, min VC for sequencing and safety Stand to Sit Minimal Assistance, Additional Information Pt able to complete using FWW for balance/support, min VC for sequencing and safety Bed to Chair Minimal Assistance Bed To Chair Transfer Type: Stepping Bed To Chair Transfer Equipment: (moves before walker set up; requires handheld assist to chair) Toilet/Commode Minimal Assistance Shower Functional Mobility Contact Guard Assistance, Additional Information Functional Mobility Device: Wheeled Walker Pt completes walk around room to BR and to chair, no LOB observed ACTIVITY TOLERANCE Sitting Activity: bed mobility, EOB sitting for personal grooming, sitting up in chair Sitting Activity Tolerance (in minutes): 10 Standing Activity: sit to stand, walk in room, walk to BR + chair Standing Activity Tolerance (in minutes): 2 BALANCE Static Sitting Balance: Good Dynamic Sitting Balance: Good Static Standing Balance: Fair Dynamic Standing Balance: Fair GOALS Grooming with: Set Up Upper Body Bathing with: Stand By Assistance Upper Body Dressing with: Stand By Assistance Lower Body Bathing with: Contact Guard Assistance Lower Body Dressing with: Contact Guard Assistance Toilet Hygiene with: Supervision Chair Transfer with: Supervision Toilet Transfer with: Supervision Tolerate (minutes of functional activity): 30 Functional Activity with: Supervision Demonstrate Competence with Education with: Supervision (safety, fall prevention) Increased Awareness of Cognitive Impairments as Related to ADL's/IADL's: Verbalized, Demonstrated Rehab Potential: Good Progress Toward Goals: Progressing as expected ACUTE CARE TREATMENT PLAN OT Frequency: 2 Times Per Week Treatment Interventions: Education, Self Care/Home Management, Energy Conservation Training, Strengthening, Functional Mobility Training, Balance Training, Cognitive Training Plan for Next Visit: Bathing Training, Dressing Training SIGNATURE: Augusto Pope/OT PATIENT NAME: Cristino Verdugo DATE: January 15, 2025 TIME: 12:04 PM Evaluation and/or treatment directly supervised by licensed Occupational Therapist. I reviewed and agree with the documentation corresponding to this therapy visit. SIGNATURE: SHAUN Valdez/Bennett DATE: January 15, 2025 TIME: 3:27 PM CASE MANAGEM Observed: 01/15/2025 11:49 AM Status: COMPLETED Source: [facility] HNO ID: [id number] Author: SHAVONNE MEIRE RN Service: Care Management Author Type: Registered Nurse Type: Care Mgt Progress Note Filed: 01/15/2025 11:50 Note Text: CARE MANAGEMENT PROGRESS NOTE SERVICE DATE: 01/15/2025 SERVICE TIME: 11:49 AM LOS: 20 days Plan is [facility]. Auth is currently pending. 7000 complete. Will need managed transport. Folder complete. CM to follow for transitional needs SIGNATURE: Shavonne Meier RN PATIENT NAME: Cristino E Mehdi Verdugo DATE: January 15, 2025 TIME: 11:49 AM PROGRESS Observed: 01/15/2025 8:16 AM Status: COMPLETED Source: [facility] HNO ID: [id number] Author: YOU DELGADO PA-C Service: General Surgery Author Type: Physician Supervisor Contact And Service Clerks Type: Progress Notes Filed: 01/15/2025 08:26 Note Text: Trauma Surgery Progress Note SERVICE DATE: 01/15/2025 Trauma Service Pager: For questions or concerns Mon-Fri 6a-5p please page [phone]. After 5pm and on Weekends and Holidays, please page [phone] if in ICU or [phone] if on RNF. SUBJECTIVE: NAEON. Pain controlled. Patient states that she thinks "she has more healing to do." No new focal concerns at this time. Tolerating diet. OBJECTIVE: Vitals: Temp (24hrs), Av.1 ?C (98.8 ?F), Min:36.9 ?C (98.5 ?F), Max:37.3 ?C (99.1 ?F) BP 157/64 Pulse 88 Temp 37.3 ?C (99.1 ?F) Resp 18 Ht 156.2 cm (5' 1.5") Wt 56 kg (123 lb 7.3 oz) SpO2 97% BMI 22.95 kg/m? O2 Therapy: Room Air IANDO: Date 01/14/25699 - 01/15/25 0659 01/15/25 07 - 01/16/25 0659 Shift 5959-0943 1609-4092 7895-5845 24 Hour Total 8184-2401 9590-3497 9826-9570 24 Hour Total INTAKE Shift Total OUTPUT Urine Urine Not Saved. 3 x 5 x 2 x 10 x # of BMs Number of BMs 0 x 1 x 1 x Shift Total Weight (kg) 59 59 56 56 56 56 56 56 MEDICATIONS: Current Facility-Administered Medications Medication Dose Route Frequency oxyCODONE IR 2.5-5 mg tab(s) (ROXICODONE) 2.5-5 mg ORAL q 6 H PRN thiamine 200 mg tab(s) (VITAMIN B1) 200 mg ORAL/FEEDING TUBE TID iv contrast (radiology procedure) INTRAVENOUS DIRECTED PRN acetaminophen 1,000 mg tab(s) (TYLENOL) 1,000 mg ORAL TID budesonide, enteric coated 9 mg cap(s) (ENTOCORT EC) 9 mg ORAL DAILY metoprolol tartrate (short acting) 25 mg tab(s) (LOPRESSOR) 25 mg ORAL q 8 H enoxaparin 30 mg injection (LOVENOX) 30 mg SUBCUTANEOUS q 12 HR therapeutic multivitamin-minerals tablet (THERA-M PLUS) 1 tablet ORAL DAILY melatonin 6 mg tab(s) 6 mg ORAL DAILY (8 PM) pantoprazole 40 mg injection (PROTONIX) 40 mg INTRAVENOUS BID AC (0600/1600) metoprolol 5 mg injection (LOPRESSOR) 5 mg INTRAVENOUS q 6 H PRN folic acid 1 mg tab(s) 1 mg ORAL DAILY lidocaine 4 % 2 patch (SALONPAS) 2 patch TRANSDERMAL DAILY And lidocaine patch - REMOVE OTHER AT BEDTIME And lidocaine - VERIFY PATCH OTHER q 8 H ipratropium-albuterol 3 mL nebulizer solution (DUONEB) 3 mL INHALATION q 6 H PRN cetirizine 10 mg tab(s) (ZYRTEC) 10 mg ORAL DAILY rosuvastatin 10 mg tab(s) (CRESTOR) 10 mg ORAL AT BEDTIME NaCl 0.9% iv flush bag 20 mL INTRAVENOUS PRN ondansetron 4 mg tab(s) (ZOFRAN) 4 mg ORAL q 6 H PRN Or ondansetron (PF) 4 mg injection (ZOFRAN) 4 mg INTRAVENOUS q 6 H PRN Labs: Recent Labs 01/15/25 0519 01/14/25 0209 NA 136 136 K 3.9 4.0 CHLOR 105 104 CO2 16* 20* BUN 11 12 CREAT 0.62 0.71 GLUC 85 79 ANION 15 12 CA 9.0 9.0 WBC 4.66 6.68 HB 9.7* 9.6* HCT 29.9* 29.5* PLT 330 478* PHYSICAL EXAM: Genl: Appears age appropriate. No acute distress. Resting comfortably. Head/Face: Normocephalic. Atraumatic. Eyes: EOMI. Sclera not icteric, not injected Resp: Lung sounds are clear bilat. No wheezes. No rales. Breathing is non-labored on RA. Left chest wall tenderness without crepitus. CVS: RRR as above; 2+ pulses at RA, DP, PT bilat. GI: Abdomen is soft, non-tender, not distended. Bowel sounds normoactive. No peritonitis. MSK: Extremities without clubbing, cyanosis, edema. Normal ROM x 4. Skin: Warm and dry. Not jaundiced. Moderately left forearm edema. Ecchymosis to left upper extremity. Scattered ecchymosis to right upper extremity. Ecchymosis to left chest, hip. Neuro: AANDOx2-3. Strength and sensation normal. BRAGA. Psych: Calm, cooperative. ASSESSMENT AND PLAN: Assessment Active Hospital Problems Diagnosis Date Noted Pneumothorax 12/26/2024 Hemothorax 01/11/2025 C. difficile colitis 01/08/2025 Psoas muscle abscess (HCC) 01/08/2025 Delirium 01/07/2025 Constipation 01/07/2025 DNR (do not resuscitate) discussion 01/07/2025 Frailty syndrome in geriatric patient 01/07/2025 Goals of care, counseling/discussion 01/07/2025 Neurodegenerative disorder 01/07/2025 Pain 01/07/2025 Renal cyst 01/04/2025 Malnutrition of mild degree (HCC) 01/03/2025 At risk for delirium 12/31/2024 Acute cystitis without hematuria 12/31/2024 Acute urinary retention 12/31/2024 Hypokalemia 12/31/2024 Hyponatremia 12/31/2024 SVT (supraventricular tachycardia) ([facility]) 12/31/2024 Hypophosphataemia 12/31/2024 Posttraumatic respiratory insufficiency 12/27/2024 Fall 12/26/2024 Closed fracture of multiple ribs of left side 12/26/2024 Hemopneumothorax on left 12/26/2024 Alcohol use 12/26/2024 Type 2 diabetes (HCC) 12/26/2024 Chronic IBS (irritable bowel syndrome) 12/26/2024 Chronic History of stroke 2013 Chronic History of cholecystectomy 2008 Chronic Assessment: 79-year old female s/p mechanical fall on 12/26/24 (Trauma transfer from [place]) Imaging performed: CT HNCAP ([place] [facility], 12/26) CXR, XR left elbow/forearm (12/26) CXR x 2 (12/27) CXR x 3, CTA chest, CTAP (12/28) CXR (12/29) CXR (12/30) CXR (12/31) CT brain, CXR x 2, KUB (01/01) CXR (01/02) CXR (01/03) CXR (01/04) DVT US BUE (01/05) CT EMMANUEL (01/07) XR left femur (01/08) Traumatic Injuries: Left 6-9 rib fractures with associated hemopneumothorax and subcutaneous emphysema Left elbow contusion with small skin tear Operations/Procedures: 1. 12/27/2024- Left chest tube inserted 2. 12/28/2024- Left subclavian CVC (removed 12/30) 3. 01/10/2025- Left psoas muscle abscess aspiration with IR Care Plan: Left rib fractures with hemopneumothorax S/p left chest tube insertion 12/27/24 CT to water seal 12/28, removed 01/01 CXR (01/04): Persistent left lung base focal opacity CT chest (01/07): Trace left pleural effusion Respiratory status stable on RA Aggressive pulmonary hygiene Multimodal pain control Mobilize as tolerated ETOH abuse, delirium Patient reports daily wine consumption 3-4 glasses Received Phenobarbital and Ativan at [facility] and during transfer Phenobarb taper discontinued 2/ sedation CIWA protocol Continue Thiamine, Folate Social work consult Hold Seroquel due to drowsiness Continue Melatonin at HS Geriatrics consulted, appreciate recommendations Acute urinary retention Villela inserted 12/28 due to high volume retention Villela catheter removed 12/31 and void trial initiated Required straight catheterization x 1 due to continued retention on 01/01 Villela catheter reinserted 01/02 due to high volume retention Urology consulted, appreciate recommendations Per urology: Consider formal urology driven void trial prior to discharge if milestones of mentation at baseline, improvement in ambulation, and having regular bowel movements are met Void trial initiated 01/09, patient voiding without difficulty following removal Follow-up with urology outpatient for work-up of urinary retention and renal cyst Leukocytosis WBCs WNL Afebrile, HDS Respiratory status stable on RA Blood cultures (12/28): NGTD UA (12/28): +WBCs, leuks UC (12/28): +E.Coli Repeat UA (01/01): +WBCs, leuks Received Zosyn x 7 days for UTI (12/28-12/31 and (01/02-01/06) C.diff PCR (01/02): Positive C.diff EIA (820): Negative PO Vancomycin QID completed (01/03-01/12) CT CAP (01/07): Interval development of abnormal asymmetric enlargement of the left psoas muscle with central area of hypodensity measuring 2 cm. This finding is concerning for possible myositis and developing abscess. ID and IR consulted, appreciate recommendations Left psoas muscle wound culture (01/10): Ngx3d ID signed off (01/14) - continue course of Vancomycin SVT Patient with episodes of SVT necessitating IV Metoprolol for conversion to SR ECHO (01/02): EF 60%, mild concentric LVH, LV/RV function normal, mild 1+-2+ AV regurg Consider increasing PO Metoprolol from 12.5 mg TID to 25 mg TID if HR remains uncontrolled PRN IV Metoprolol 5 mg every 6 hours for HR > 120 EP consulted, appreciate recommendations Per EP: SVT likely related to ETOH abuse, electrolyte disturbances, and post-fall inflammation from hemopneumothorax and rib fractures. Continue Metoprolol 25 mg TID. Should she have prolonged recurrences of SVT, a combination of Cardizem CD 120 mg along with beta evon may be considered. No indication for antiarrhythmic at this time. Continuous cardiac monitoring Monitor electrolytes and supplement as needed Acute blood loss anemia, ?UGIB- Stable Hgb 9.7 from 9.6 from 8.5 +Tarry stool x 1 on 01/02/25 Likely in setting of NSAID administration with history of IBD Okay for DVT chemoprophylaxis; if Hgb continues to decrease, consult GI Continue Pantoprazole BID Transfuse for Hgb < 7.0 or for signs of bleeding Trend daily CBC SOUND consulted for medical management, appreciate recommendations Continue home medications as ordered Current diet order: DIET FOOD CONSISTENCY CONTROLLED Pain regimen: Scheduled Tylenol, Lidocaine patch, PRN Oxycodone Bowel regimen: None Labs: As above PPX: DVT: Lovenox 30 mg BID, SCDs, mobilize Ulcer: Pantoprazole BID Vit D level if > 65 yo: 46.4 Consulted Services: SICU ID EP SOUND IR PT/OT Social work Dispo Planning: PT/OT recommend SNF. Case management following. Medically stable for discharge to SNF. Incidentals: None Follow Up Needs: PCP Staff Trauma Surgeon: Dr. Dean Portions of text from this note were copied from prior patient encounter. All relevant information was updated to reflect most-recent clinical decision-making and plan of care 01/15/2025. SIGNATURE: You Delgado PA-C PATIENT NAME: Cristino Verdugo DATE: 01/15/2025 TIME: 8:16 AM Pager: see below Trauma Service Pager: For questions or concerns Mon-Fri 6a-5p please page [phone]. After 5pm and on Weekends and Holidays, please page [phone] if in ICU or [phone] if on RNF. INPATIENT ATTENDING: Dr. Dean High-Risk Geriatric Patient Vulnerabilities: Impaired Cognition, Impaired Functional Status, and Malnutrition Diet: DIET FOOD CONSISTENCY CONTROLLED Recommendations: Cognition: Impaired Cognition (Consult Geriatrics) bCAM Score (Calc): Negative Delirium Screen Confusion Assessment Method (CAM - ICU Score): (!) Positive Geriatric Consult (Age over 85 or impaired cognition):Consult to [employer] Palliative Care/Hospice: Consult not required Rehab/Therapy: PT/OT Recommendations: PT: Recommended Discharge Disposition: Subacute/SNF OT: Recommended Discharge Disposition: Subacute/SNF Swallow: Swallow Screening Result - Step 2: PASSED Swallow Screen - Patient Able To Swallow 3 Ounce Cup of Water Without Exhibiting Signs Of Aspiration Speech Recommendations: Speech: Recommended Discharge Disposition: Continued Skilled Speech Therapy Speech Diet: Diet Recommendations: Soft and Bite-Sized IDDSI Level 6, Thin Liquids IDDSI Level 0 Nutrition: Consult to Nutrition Therapy Nutrition Recommendations: MST: Total MST Score (Calculated): 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 diet (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) Supplements: Tracour 1.4, Tracour 1.0 Refer to: Speech/Language (eval to ensure diet appropriate for pt give confusion.) Vitamins and Minerals: Multivitamin with minerals Medications: Appetite stimulants Discharge Recommendations: Diet, Oral Supplements Diet: 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 Oral Supplements: high mike/protein supplement/snack of choice 2-3x/day between meals Pharmacy: Consult not needed Social Work: NA Anticipated Discharge Disposition: Fdc Facility BAS METAB 2000 PNL SERPL Collected: 06/2024 5:19 AM Status: F Source: [facility] Order Comment: Specimen Type : BLOOD SPECIMEN Ordering Facility: [facility] Address: [address] [place] [id number] TYPE CODE TESTS RESULT OUT OF RANGE REFERENCE UNITS LAB 2345-7(LOINC) Glucose SerPl-mCnc 85 74-99 mg/dL Result Comment: The [place] Diabetes Association (ADA) provides guidance for cutoff values for fasting glucose and random glucose. The ADA defines fasting as no caloric intake for at least 8 hours. Fasting plasma glucose results between 100 to 125 mg/dL indicate increased risk for diabetes (prediabetes). Fasting plasma glucose results greater than or equal to 126 mg/dL meet the criteria for diagnosis of diabetes. In the absence of unequivocal hyperglycemia, results should be confirmed by repeat testing. In a patient with classic symptoms of hyperglycemia or hyperglycemic crisis, random plasma glucose results greater than or equal to 200 mg/dL meet the criteria for diagnosis of diabetes. Reference: Standards of Medical Care in Diabetes 2016, [place] Diabetes Association. Diabetes Care. 2016.39(Suppl 1). LAB 3094-0(LOINC) BUN SerPl-mCnc 11 7-21 mg/dL LAB 2160-0(LOINC) Creat SerPl-mCnc 0.62 0.58-0.96 mg/dL LAB 2951-2(LOINC) Sodium SerPl-sCnc 136 136-144 mmol/L LAB 2823-3(LOINC) Potassium SerPl-sCnc 3.9 3.7-5.1 mmol/L LAB 2075-0(LOINC) Chloride SerPl-sCnc 105 98-107 mmol/L LAB 2028-9(LOINC) CO2 SerPl-sCnc 16 Low 22-30 mmol/L LAB 1863-0(LOINC) Anion Gap4 SerPl-sCnc 15 8-15 mmol/L LAB 95958-7(LOINC) Calcium SerPl-mCnc 9.0 8.5-10.2 mg/dL LAB 88780-4(LOINC) eGFRcr SerPlBld CKD-EPI 2020 92 >=60 mL/min/1. 73m??? Result Comment: Estimated Gl omerular Filtration Rate (eGFR) is calculated using the 2020 CKD-EPI creatinine equation. This equation utilizes serum creatinine, sex, and age as parameters. The creatinine assay has traceable calibration to isotope dilution-mass spectrometry. Refer to KDIGO guidelines for clinical interpretation. In patients with unstable renal function, e.g. those with acute kidney injury, the eGFR may not accurately reflect actual GFR. Performed By: #### [id number] # ### [facility] CLIA [id number] [address] CBC PNL BLD AUTO Collected: 01/15/2025 5:19 AM Statu s: F Source: [facility] Order Comment: Specimen Type : BLOOD SPECIMEN Ordering Facility: [facility] Address: [address] [place] [address] TYPE CODE TESTS RESULT OUT OF RANGE REFERENCE UNITS LAB 6690-2(LOINC) WBC # Bld Auto 4.66 3.70-11.00 k/uL LAB 789-8(LOINC) RBC # Bld Auto 2.75 Low 3.90-5.20 m/ uL LAB 718-7(LOINC) Hgb Bld-mCnc 9.7 Low 11.5-15.5 g/dL LAB 4544-3(LOINC) Hct VFr Bld Auto 29.9 Low 36.0-46.0 % LAB 787-2(LOINC) MCV RBC Auto 108.7 High 80.0-100.0 fL LAB 785-6(LOINC) MCH RBC Qn Auto 35.3 High 26.0-34.0 pg LAB 786-4(LOINC) MCHC RBC Auto-mCnc 32.4 30.5-36.0 g/dL LAB 14874-6(LOINC) RDW RBC-Rto 14.5 11.5-15.0 % LAB 777-3(LOINC) Platelet # Bld Auto 330 150-400 k/uL LAB 89147-2(LOINC) PMV Bld Auto 9.6 9.0-12.7 fL LAB 771-6(LOINC) nRBC # Bld Auto <0.01 <0.01 k/uL Performed By: #### [id number] # ### [facility] CLIA [id number] [address] PROGRESS Observed: 01/14/2025 1:58 PM Status: COMPLETED Source: [facility] HNO ID: [id number] Author: CARL TELLEZ APRN.HISTORIC PRESERVATIONIST Service: General Surgery Author Type: Nurse Practitioner Type: Progress Notes Filed: 01/14/2025 13:59 Note Text: Trauma Surgery Progress Note SERVICE DATE: 01/14/2025 Trauma Service Pager: For questions or concerns Mon-Fri 6a-5p please page [phone]. After 5pm and on Weekends and Holidays, please page [phone] if in ICU or [phone] if on RNF. SUBJECTIVE: NAEON. Patient reports doing well, still feeling fatigued. Remains agreeable to SNF on discharge, hopeful for discharge tomorrow. OBJECTIVE: Vitals: Temp (24hrs), Av.3 ?C (99.1 ?F), Min:37.1 ?C (98.8 ?F), Max:37.4 ?C (99.3 ?F) BP 134/55 Pulse 111 Temp 37.2 ?C (98.9 ?F) (Temporal) Resp 17 Ht 156.2 cm (5' 1.5") Wt 59 kg (130 lb 1.1 oz) SpO2 98% BMI 24.18 kg/m? O2 Therapy: Room Air IANDO: Date 01/13/25 07 - 01/14/25 0659 01/14/25 07 - 01/15/25 0659 Shift 0050-3085 3010-1269 8281-3592 24 Hour Total 8560-8342 3801-3653 0289-2985 24 Hour Total INTAKE Shift Total OUTPUT Urine Urine Not Saved. 3 x 2 x 5 x 1 x 1 x # of BMs Number of BMs 2 x 2 x Shift Total Weight (kg) 59 59 59 59 59 59 59 59 MEDICATIONS: Current Facility-Administered Medications Medication Dose Route Frequency oxyCODONE IR 2.5-5 mg tab(s) (ROXICODONE) 2.5-5 mg ORAL q 6 H PRN thiamine 200 mg tab(s) (VITAMIN B1) 200 mg ORAL/FEEDING TUBE TID iv contrast (radiology procedure) INTRAVENOUS DIRECTED PRN acetaminophen 1,000 mg tab(s) (TYLENOL) 1,000 mg ORAL TID budesonide, enteric coated 9 mg cap(s) (ENTOCORT EC) 9 mg ORAL DAILY metoprolol tartrate (short acting) 25 mg tab(s) (LOPRESSOR) 25 mg ORAL q 8 H enoxaparin 30 mg injection (LOVENOX) 30 mg SUBCUTANEOUS q 12 HR therapeutic multivitamin-minerals tablet (THERA-M PLUS) 1 tablet ORAL DAILY melatonin 6 mg tab(s) 6 mg ORAL DAILY (8 PM) pantoprazole 40 mg injection (PROTONIX) 40 mg INTRAVENOUS BID AC (0600/1600) metoprolol 5 mg injection (LOPRESSOR) 5 mg INTRAVENOUS q 6 H PRN folic acid 1 mg tab(s) 1 mg ORAL DAILY lidocaine 4 % 2 patch (SALONPAS) 2 patch TRANSDERMAL DAILY And lidocaine patch - REMOVE OTHER AT BEDTIME And lidocaine - VERIFY PATCH OTHER q 8 H ipratropium-albuterol 3 mL nebulizer solution (DUONEB) 3 mL INHALATION q 6 H PRN cetirizine 10 mg tab(s) (ZYRTEC) 10 mg ORAL DAILY rosuvastatin 10 mg tab(s) (CRESTOR) 10 mg ORAL AT BEDTIME NaCl 0.9% iv flush bag 20 mL INTRAVENOUS PRN ondansetron 4 mg tab(s) (ZOFRAN) 4 mg ORAL q 6 H PRN Or ondansetron (PF) 4 mg injection (ZOFRAN) 4 mg INTRAVENOUS q 6 H PRN Labs: Recent Labs 01/14/25 0209 01/13/25 0031 NA 136 135* K 4.0 4.0 CHLOR 104 106 CO2 20* 20* BUN 12 15 CREAT 0.71 0.67 GLUC 79 137* ANION 12 9 CA 9.0 8.6 WBC 6.68 6.45 HB 9.6* 8.5* HCT 29.5* 25.9* PLT 478* 411* PHYSICAL EXAM: Genl: Appears age appropriate. No acute distress. Resting comfortably. Head/Face: Normocephalic. Atraumatic. Eyes: EOMI. Sclera not icteric, not injected Resp: Lung sounds are clear bilat. No wheezes. No rales. Breathing is non-labored on RA. Left chest wall tenderness without crepitus. CVS: RRR as above; 2+ pulses at RA, DP, PT bilat. GI: Abdomen is soft, non-tender, not distended. Bowel sounds normoactive. No peritonitis. MSK: Extremities without clubbing, cyanosis, edema. Normal ROM x 4. Skin: Warm and dry. Not jaundiced. Moderately left forearm edema. Ecchymosis to left upper extremity. Scattered ecchymosis to right upper extremity. Ecchymosis to left chest, hip. Neuro: AANDOx2-3. Strength and sensation normal. BRAGA. Psych: Calm, cooperative. ASSESSMENT AND PLAN: Assessment Active Hospital Problems Diagnosis Date Noted Pneumothorax 12/26/2024 Hemothorax 01/11/2025 C. difficile colitis 01/08/2025 Psoas muscle abscess (HCC) 01/08/2025 Delirium 01/07/2025 Constipation 01/07/2025 DNR (do not resuscitate) discussion 01/07/2025 Frailty syndrome in geriatric patient 01/07/2025 Goals of care, counseling/discussion 01/07/2025 Neurodegenerative disorder 01/07/2025 Pain 01/07/2025 Renal cyst 01/04/2025 Malnutrition of mild degree ([facility]) 01/03/2025 At risk for delirium 12/31/2024 Acute cystitis without hematuria 12/31/2024 Acute urinary retention 12/31/2024 Hypokalemia 12/31/2024 Hyponatremia 12/31/2024 SVT (supraventricular tachycardia) ([facility]) 12/31/2024 Hypophosphataemia 12/31/2024 Posttraumatic respiratory insufficiency 12/27/2024 Fall 12/26/2024 Closed fracture of multiple ribs of left side 12/26/2024 Hemopneumothorax on left 12/26/2024 Alcohol use 12/26/2024 Type 2 diabetes ([facility]) 12/26/2024 Chronic IBS (irritable bowel syndrome) 12/26/2024 Chronic History of stroke 2013 Chronic History of cholecystectomy 2008 Chronic Assessment: 79-year old female s/p mechanical fall on 12/26/24 (Trauma transfer from [place]) Imaging performed: CT HNCAP ([place] [facility], 12/26) CXR, XR left elbow/forearm (12/26) CXR x 2 (12/27) CXR x 3, CTA chest, CTAP (12/28) CXR (12/29) CXR (12/30) CXR (12/31) CT brain, CXR x 2, KUB (01/01) CXR (01/02) CXR (01/03) CXR (01/04) DVT US BUE (01/05) CT EMMANUEL (01/07) XR left femur (01/08) Traumatic Injuries: Left 6-9 rib fractures with associated hemopneumothorax and subcutaneous emphysema Left elbow contusion with small skin tear Operations/Procedures: 1. 12/27/2024- Left chest tube inserted 2. 12/28/2024- Left subclavian CVC (removed 12/30) 3. 01/10/2025- Left psoas muscle abscess aspiration with IR Care Plan: Left rib fractures with hemopneumothorax S/p left chest tube insertion 12/27/24 CT to water seal 12/28, removed 01/01 CXR (01/04): Persistent left lung base focal opacity CT chest (01/07): Trace left pleural effusion Respiratory status stable on RA Aggressive pulmonary hygiene Multimodal pain control Mobilize as tolerated ETOH abuse, delirium Patient reports daily wine consumption 3-4 glasses Received Phenobarbital and Ativan at [facility] and during transfer Phenobarb taper discontinued 2/2 sedation CIWA protocol Continue Thiamine, Folate Social work consult Hold Seroquel due to drowsiness Continue Melatonin at Geriatrics consulted, appreciate recommendations Acute urinary retention Villela inserted 12/28 due to high volume retention Villela catheter removed 12/31 and void trial initiated Required straight catheterization x 1 due to continued retention on 01/01 Villela catheter reinserted 01/02 due to high volume retention Urology consulted, appreciate recommendations Per urology: Consider formal urology driven void trial prior to discharge if milestones of mentation at baseline, improvement in ambulation, and having regular bowel movements are met Void trial initiated 01/09, patient voiding without difficulty following removal Follow-up with urology outpatient for work-up of urinary retention and renal cyst Leukocytosis WBCs 6.45 from 7.14 Afebrile, HDS Respiratory status stable on RA Blood cultures (12/28): NGTD UA (12/28): +WBCs, leuks UC (12/28): +E.Coli Repeat UA (01/01): +WBCs, leuks Received Zosyn x 7 days for UTI (12/28-12/31 and (01/02-01/06) C.diff PCR (01/02): Positive C.diff EIA (820): Negative PO Vancomycin QID completed (01/03-01/12) CT CAP (01/07): Interval development of abnormal asymmetric enlargement of the left psoas muscle with central area of hypodensity measuring 2 cm. This finding is concerning for possible myositis and developing abscess. ID and IR consulted, appreciate recommendations Left psoas muscle wound culture (01/10): NGx3d Trend daily CBC SVT Patient with episodes of SVT necessitating IV Metoprolol for conversion to SR ECHO (01/02): EF 60%, mild concentric LVH, LV/RV function normal, mild 1+-2+ AV regurg Consider increasing PO Metoprolol from 12.5 mg TID to 25 mg TID if HR remains uncontrolled PRN IV Metoprolol 5 mg every 6 hours for HR > 120 EP consulted, appreciate recommendations Per EP: SVT likely related to ETOH abuse, electrolyte disturbances, and post-fall inflammation from hemopneumothorax and rib fractures. Continue Metoprolol 25 mg TID. Should she have prolonged recurrences of SVT, a combination of Cardizem CD 120 mg along with beta evon may be considered. No indication for antiarrhythmic at this time. Continuous cardiac monitoring Monitor electrolytes and supplement as needed Acute blood loss anemia, ?UGIB- Stable Hgb 9.6 from 8.5 +Tarry stool x 1 on 01/02/25 Likely in setting of NSAID administration with history of IBD Okay for DVT chemoprophylaxis; if Hgb continues to decrease, consult GI Continue Pantoprazole BID Transfuse for Hgb < 7.0 or for signs of bleeding Trend daily CBC SOUND consulted for medical management, appreciate recommendations Continue home medications as ordered Current diet order: DIET FOOD CONSISTENCY CONTROLLED Pain regimen: Scheduled Tylenol, Lidocaine patch, PRN Oxycodone Bowel regimen: None Labs: As above PPX: DVT: Lovenox 30 mg BID, SCDs, mobilize Ulcer: Pantoprazole BID Vit D level if > 65 yo: 46.4 Consulted Services: SICU ID EP SOUND IR PT/OT Social work Dispo Planning: PT/OT recommend SNF. Case management following. Medically stable for discharge to SNF. Incidentals: None Follow Up Needs: PCP Staff Trauma Surgeon: Dr. Mahoney Portions of text from this note were copied from prior patient encounter. All relevant information was updated to reflect most-recent clinical decision-making and plan of care 01/14/2025. SIGNATURE: Carl Tellez APRN.HISTORIC PRESERVATIONIST PATIENT NAME: Cristino Verdugo DATE: 01/14/2025 TIME: 1:58 PM Pager: see below Trauma Service Pager: For questions or concerns Mon-Fri 6a-5p please page [phone]. After 5pm and on Weekends and Holidays, please page [phone] if in ICU or [phone] if on RNF. INPATIENT ATTENDING: Dr. Phillips High-Risk Geriatric Patient Vulnerabilities: Impaired Cognition, Impaired Functional Status, and Malnutrition Diet: DIET FOOD CONSISTENCY CONTROLLED Recommendations: Cognition: Impaired Cognition (Consult Geriatrics) bCAM Score (Calc): Negative Delirium Screen Confusion Assessment Method (CAM - ICU Score): (!) Positive Geriatric Consult (Age over 85 or impaired cognition):Consult to [employer] Palliative Care/Hospice: Consult not required Rehab/Therapy: PT/OT Recommendations: PT: Recommended Discharge Disposition: Subacute/SNF OT: Recommended Discharge Disposition: Subacute/SNF Swallow: Swallow Screening Result - Step 2: PASSED Swallow Screen - Patient Able To Swallow 3 Ounce Cup of Water Without Exhibiting Signs Of Aspiration Speech Recommendations: Speech: Recommended Discharge Disposition: Continued Skilled Speech Therapy Speech Diet: Diet Recommendations: Soft and Bite-Sized IDDSI Level 6, Thin Liquids IDDSI Level 0 Nutrition: Consult to Nutrition Therapy Nutrition Recommendations: MST: Total MST Score (Calculated): 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 diet (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) Supplements: [employer] 1.4, [employer] 1.0 Refer to: Speech/Language (eval to ensure diet appropriate for pt give confusion.) Vitamins and Minerals: Multivitamin with minerals Medications: Appetite stimulants Discharge Recommendations: Diet, Oral Supplements Diet: 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 Oral Supplements: high mike/protein supplement/snack of choice 2-3x/day between meals Pharmacy: Consult not needed Social Work: NA Anticipated Discharge Disposition: Fdc Facility THERAPY NT Observed: 01/14/2025 11:48 AM Status: COMPLETED Source: [facility] HNO ID: [id number] Author: DANIEL HARMON OTR/L Service: Occupational Therapy Author Type: Occupational Therapist Type: Therapy (PT/OT/Speech/Resp) Filed: 01/14/2025 11:49 Note Text: Occupational Therapy Treatment Summary SERVICE DATE: 01/14/2025 SERVICE TIME: 1038 to 1053 ROOM: [id number] OT 6 Clicks Score: 15 DISCHARGE RECOMMENDATIONS Subacute/SNF Recommended Discharge Disposition Comments: patient not at functional baseline. Recommended Discharge Disposition Due to: ADL impairment, Patient requires daily (5x/week) skilled therapy at next level of care., Cognitive deficits new/worsened ASSESSMENT Response to Therapy Interventions: Requires Additional Time to Complete Activities, Requires Encouragement to Complete Activities, Slow Progression with ADLs/IADLs, Slow Progression with Functional Activities/Skills Pt progressing slowly toward OT goals, continue to rec SNF at d/c. Pt demonstrating improved independence with supine to sit transfer today, was able to complete with CGA. Pt requiring increased cuing to maintain alert state and problem solve through session, benefited from encouragement to participate in ADLS at edge of bed today. Pt limited by decreased activity tolerance and decreased motivation. PRECAUTIONS Fall Risk, Bed/Chair Alarm CURRENT HOSPITAL COURSE Patient had a fall was transferred from [place] [id number] admitted to the ICU has rib fractures on the left side hemopneumothorax emphysema chest tube. INFORMATION SECURITY on 12/31/24 for suspected SVT with HR in 180s. Increase in delirium. Pt on regular nursing floor now. Relevant Past Medical History: etoh abuse, fibro HOME LIVING Patient Lives With: Family (son) Assistance Available: Other: See Comment Comments: 2 Equipment Owned: Walker- Wheeled PRIOR FUNCTIONAL LEVEL Within Functional Limits indep at home no AD lives with son SUBJECTIVE drowsy, requires increased encouragement to participate and to remain alert COGNITION Orientation Deficits: Not oriented to Time, Not oriented to Situation, Confused Responsiveness: Drowsy, Awake Follows Commands: 1-step Commands, With Increased Time, With Repetition, Cueing Needed Cueing to Follow Commands: Moderate Attention Deficits: Distractible, Divided Executive Function Deficits: Sequencing, Insight to Deficits, Problem Solving, Safety Awareness Confusion Assessment Method (CAM - ICU Score): (!) Positive (01/04/25) 4AT Score: (!) 12 (01/14/25) Name of LIP Notified of New Positive 4AT Score: known positive, delirium protocol in place (01/14/25) Delirium Positive/Negative: Positive (01/14/25) THERAPY DIAGNOSIS Reduced mobility-other, Decreased activities of daily living (ADL), Muscle Weakness (generalized), Unsteadiness on feet, General symptoms and signs-other, Signs and Symptoms Involving Cognitive Functions and Awareness TREATMENT INTERVENTIONS Therapeutic Activity (42208) Timed Code Treatment (minutes): 15 Skilled Treatment Time (minutes): 15 Therapeutic Activity (00114) Treatment Minutes: 15 $ Therapeutic Activity (93705) Billed Units: 1 unit TRAINING AND EDUCATION PROVIDED Role of Occupational Therapy, Delirium Reduction Techniques, Cognitive Skills, Cognitive Stimulation Activities, Command Following, Activity Adaptation/Compensatory Strategies, Sitting Balance to Improve [place] with ADLs/Self-Care, Orientation, Bed Mobility, Benefits of In-Hospital Mobility THERAPEUTIC SKILLS USED Activity Dosing, Cues for Sequencing/Proper Technique for Activity, Physical Assist, Therapeutic Use of Self, Movement Facilitation FUNCTIONAL STATUS Activities of Daily Living Assist Level Additional Information Feeding Set Up Grooming Minimal Assistance, Additional Information at EOB, pt declined to transfer to chair. Pt required assist to comb back portion of hair d/t knots Bathing Upper Body Minimal Assistance Bathing Lower Body Maximal Assistance Dressing Upper Body Minimal Assistance Dressing Lower Body Maximal Assistance Toileting Moderate Assistance Mobility Assist Level Additional Information Bed Mobility Supine To Sit: Contact Guard Assistance, Additional Information repeat verbal cues, pt able to move legs to EOB and push up into upright trunk position Sit To Supine: Contact Guard Assistance Sit to Stand Additional Information declined to attempt today Stand to Sit Minimal Assistance Bed to Chair Minimal Assistance Bed To Chair Transfer Type: Stepping Bed To Chair Transfer Equipment: (moves before walker set up; requires handheld assist to chair) Toilet/Commode Minimal Assistance Shower Functional Mobility Contact Guard Assistance, Additional Information Functional Mobility Device: Wheeled Walker bed level activities today, pt declined out of bed activities. Required encouragement to sit at the edge of the bed for at least 5 minutes to support activity tolerance, required repeat cuing to maintain attention to task, pt repeatedly asking to lay back down ACTIVITY TOLERANCE Sitting Activity: bed mobility, EOB to target activity tolerance and for cog activities Sitting Activity Tolerance (in minutes): 8 BALANCE Static Sitting Balance: Good Dynamic Sitting Balance: Fair GOALS Grooming with: Set Up Upper Body Bathing with: Stand By Assistance Upper Body Dressing with: Stand By Assistance Lower Body Bathing with: Contact Guard Assistance Lower Body Dressing with: Contact Guard Assistance Toilet Hygiene with: Supervision Chair Transfer with: Supervision Toilet Transfer with: Supervision Tolerate (minutes of functional activity): 30 Functional Activity with: Supervision Demonstrate Competence with Education with: Supervision (safety, fall prevention) Increased Awareness of Cognitive Impairments as Related to ADL's/IADL's: Verbalized, Demonstrated Rehab Potential: Good Good Rehab Potential Due To: Current objective clinical presentation Progress Toward Goals: Progressing slower than expected ACUTE CARE TREATMENT PLAN OT Frequency: 2 Times Per Week Treatment Interventions: Education, Self Care/Home Management, Energy Conservation Training, Strengthening, Functional Mobility Training, Balance Training, Cognitive Training Plan for Next Visit: Bathing Training, Dressing Training SIGNATURE: Daniel Harmon OTR/L PATIENT NAME: Cristino Verdugo DATE: January 14, 2025 TIME: 11:48 AM CBC PNL BLD AUTO Collected: 01/14/2025 2:09 AM Statu s: F Source: [facility] Order Comment: Specimen Type : BLOOD SPECIMEN Ordering Facility: [facility] Address: [address] [place] [address] TYPE CODE TESTS RESULT OUT OF RANGE REFERENCE UNITS LAB 6690-2(LOINC) WBC # Bld Auto 6.68 3.70-11.00 k/uL LAB 789-8(LOINC) RBC # Bld Auto 2.72 Low 3.90-5.20 m/ uL LAB 718-7(LOINC) Hgb Bld-mCnc 9.6 Low 11.5-15.5 g/dL LAB 4544-3(LOINC) Hct VFr Bld Auto 29.5 Low 36.0-46.0 % LAB 787-2(LOINC) MCV RBC Auto 108.5 High 80.0-100.0 fL LAB 785-6(LOINC) MCH RBC Qn Auto 35.3 High 26.0-34.0 pg LAB 786-4(LOINC) MCHC RBC Auto-mCnc 32.5 30.5-36.0 g/dL LAB 61622-4(LOINC) RDW RBC-Rto 14.6 11.5-15.0 % LAB 777-3(LOINC) Platelet # Bld Auto 478 High 150-400 k/uL LAB 17130-6(LOINC) PMV Bld Auto 9.6 9.0-12.7 fL LAB 771-6(LOINC) nRBC # Bld Auto <0.01 <0.01 k/uL Performed By: #### [id number] # ### [facility] CLIA [id number] [address] [place] [address] [place] BAS METAB 2000 PNL SERPL Collected: 05/2024 2:09 AM Status: F Source: [facility] Order Comment: Specimen Type : BLOOD SPECIMEN Ordering Facility: [facility] Address: [address] [place] [address] TYPE CODE TESTS RESULT OUT OF RANGE REFERENCE UNITS LAB 2345-7(LOINC) Glucose SerPl-mCnc 79 74-99 mg/dL Result Comment: The [place] Diabetes Association (ADA) provides guidance for cutoff values for fasting glucose and random glucose. The ADA defines fasting as no caloric intake for at least 8 hours. Fasting plasma glucose results between 100 to 125 mg/dL indicate increased risk for diabetes (prediabetes). Fasting plasma glucose results greater than or equal to 126 mg/dL meet the criteria for diagnosis of diabetes. In the absence of unequivocal hyperglycemia, results should be confirmed by repeat testing. In a patient with classic symptoms of hyperglycemia or hyperglycemic crisis, random plasma glucose results greater than or equal to 200 mg/dL meet the criteria for diagnosis of diabetes. Reference: Standards of Medical Care in Diabetes 2016, [place] Diabetes Association. Diabetes Care. 2016.39(Suppl 1). LAB 3094-0(LOINC) BUN SerPl-mCnc 12 7-21 mg/dL LAB 2160-0(LOINC) Creat SerPl-mCnc 0.71 0.58-0.96 mg/dL LAB 2951-2(LOINC) Sodium SerPl-sCnc 136 136-144 mmol/L LAB 2823-3(LOINC) Potassium SerPl-sCnc 4.0 3.7-5.1 mmol/L LAB 2075-0(LOINC) Chloride SerPl-sCnc 104 98-107 mmol/L LAB 8-9(LOINC) CO2 SerPl-sCnc 20 Low 22-30 mmol/L LAB 1863-0(LOINC) Anion Gap4 SerPl-sCnc 12 8-15 mmol/L LAB 79878-6(LOINC) Calcium SerPl-mCnc 9.0 8.5-10.2 mg/dL LAB 02886-7(LOINC) eGFRcr SerPlBld CKD-EPI 2020 88 >=60 mL/min/1. 73m??? Result Comment: Estimated Gl omerular Filtration Rate (eGFR) is calculated using the 2020 CKD-EPI creatinine equation. This equation utilizes serum creatinine, sex, and age as parameters. The creatinine assay has traceable calibration to isotope dilution-mass spectrometry. Refer to KDIGO guidelines for clinical interpretation. In patients with unstable renal function, e.g. those with acute kidney injury, the eGFR may not accurately reflect actual GFR. Performed By: #### [id number] # ### [facility] CLIA [id number] [address] PROGRESS Observed: 01/13/2025 2:33 PM Status: COMPLETED Source: [facility] HNO ID: [id number] Author: CARL TELLEZ APRN.HISTORIC PRESERVATIONIST Service: General Surgery Author Type: Nurse Practitioner Type: Progress Notes Filed: 01/14/2025 14:00 Note Text: Trauma Surgery Progress Note SERVICE DATE: 01/13/2025 Trauma Service Pager: For questions or concerns Mon-Fri 6a-5p please page [phone]. After 5pm and on Weekends and Holidays, please page [phone] if in ICU or [phone] if on RNF. SUBJECTIVE: NAEON. Patient sleeping but easily awoken. Tolerating diet. Asking about going home - discussed SNF recommendations and that son had assisted with selecting SNF while patient was unwell earlier in hospitalization. Patient is agreeable to SNF placement at this time. OBJECTIVE: Vitals: Temp (24hrs), Av.9 ?C (98.4 ?F), Min:36.8 ?C (98.2 ?F), Max:36.9 ?C (98.5 ?F) BP 120/60 Pulse 85 Temp 36.8 ?C (98.2 ?F) (Temporal) Resp 18 Ht 156.2 cm (5' 1.5") Wt 59 kg (130 lb 1.1 oz) SpO2 100% BMI 24.18 kg/m? O2 Therapy: Room Air IANDO: Date 01/12/25699 - 01/13/2565801/13/25699 - 01/14/2559 Shift 4434-2994 3680-8092 5410-5931 24 Hour Total 0569-1885 5955-9896 8111-0286 24 Hour Total INTAKE Shift Total OUTPUT Urine Urine Not Saved. 1 x 2 x 3 x 3 x 3 x # of BMs Number of BMs 1 x 1 x 2 x 2 x Shift Total Weight (kg) 59 59 59 59 59 59 59 59 MEDICATIONS: Current Facility-Administered Medications Medication Dose Route Frequency oxyCODONE IR 2.5-5 mg tab(s) (ROXICODONE) 2.5-5 mg ORAL q 6 H PRN thiamine 200 mg tab(s) (VITAMIN B1) 200 mg ORAL/FEEDING TUBE TID iv contrast (radiology procedure) INTRAVENOUS DIRECTED PRN acetaminophen 1,000 mg tab(s) (TYLENOL) 1,000 mg ORAL TID budesonide, enteric coated 9 mg cap(s) (ENTOCORT EC) 9 mg ORAL DAILY metoprolol tartrate (short acting) 25 mg tab(s) (LOPRESSOR) 25 mg ORAL q 8 H enoxaparin 30 mg injection (LOVENOX) 30 mg SUBCUTANEOUS q 12 HR therapeutic multivitamin-minerals tablet (THERA-M PLUS) 1 tablet ORAL DAILY melatonin 6 mg tab(s) 6 mg ORAL DAILY (8 PM) pantoprazole 40 mg injection (PROTONIX) 40 mg INTRAVENOUS BID AC (0600/1600) metoprolol 5 mg injection (LOPRESSOR) 5 mg INTRAVENOUS q 6 H PRN folic acid 1 mg tab(s) 1 mg ORAL DAILY lidocaine 4 % 2 patch (SALONPAS) 2 patch TRANSDERMAL DAILY And lidocaine patch - REMOVE OTHER AT BEDTIME And lidocaine - VERIFY PATCH OTHER q 8 H ipratropium-albuterol 3 mL nebulizer solution (DUONEB) 3 mL INHALATION q 6 H PRN cetirizine 10 mg tab(s) (ZYRTEC) 10 mg ORAL DAILY rosuvastatin 10 mg tab(s) (CRESTOR) 10 mg ORAL AT BEDTIME NaCl 0.9% iv flush bag 20 mL INTRAVENOUS PRN ondansetron 4 mg tab(s) (ZOFRAN) 4 mg ORAL q 6 H PRN Or ondansetron (PF) 4 mg injection (ZOFRAN) 4 mg INTRAVENOUS q 6 H PRN Labs: Recent Labs 01/13/25 0031 01/12/25 0027 NA 135* 135* K 4.0 3.9 CHLOR 106 103 CO2 20* 20* BUN 15 9 CREAT 0.67 0.72 GLUC 137* 92 ANION 9 12 CA 8.6 9.0 WBC 6.45 7.14 HB 8.5* 9.2* HCT 25.9* 27.7* PLT 411* 514* PHYSICAL EXAM: Genl: Appears age appropriate. No acute distress. Resting comfortably. Head/Face: Normocephalic. Atraumatic. Eyes: EOMI. Sclera not icteric, not injected Resp: Lung sounds are clear bilat. No wheezes. No rales. Breathing is non-labored on RA. Left chest wall tenderness without crepitus. CVS: RRR as above; 2+ pulses at RA, DP, PT bilat. GI: Abdomen is soft, non-tender, not distended. Bowel sounds normoactive. No peritonitis. MSK: Extremities without clubbing, cyanosis, edema. Normal ROM x 4. Skin: Warm and dry. Not jaundiced. Moderately left forearm edema. Ecchymosis to left upper extremity. Scattered ecchymosis to right upper extremity. Ecchymosis to left chest, hip. Neuro: AANDOx2-3. Strength and sensation normal. BRAGA. Psych: Drowsy, slow to respond. ASSESSMENT AND PLAN: Assessment Active Hospital Problems Diagnosis Date Noted Pneumothorax 12/26/2024 Hemothorax 01/11/2025 C. difficile colitis 01/08/2025 Psoas muscle abscess (HCC) 01/08/2025 Delirium 01/07/2025 Constipation 01/07/2025 DNR (do not resuscitate) discussion 01/07/2025 Frailty syndrome in geriatric patient 01/07/2025 Goals of care, counseling/discussion 01/07/2025 Neurodegenerative disorder 01/07/2025 Pain 01/07/2025 Renal cyst 01/04/2025 Malnutrition of mild degree (HCC) 01/03/2025 At risk for delirium 12/31/2024 Acute cystitis without hematuria 12/31/2024 Acute urinary retention 12/31/2024 Hypokalemia 12/31/2024 Hyponatremia 12/31/2024 SVT (supraventricular tachycardia) ([facility]) 12/31/2024 Hypophosphataemia 12/31/2024 Posttraumatic respiratory insufficiency 12/27/2024 Fall 12/26/2024 Closed fracture of multiple ribs of left side 12/26/2024 Hemopneumothorax on left 12/26/2024 Alcohol use 12/26/2024 Type 2 diabetes (HCC) 12/26/2024 Chronic IBS (irritable bowel syndrome) 12/26/2024 Chronic History of stroke 2013 Chronic History of cholecystectomy 2008 Chronic Assessment: 79-year old female s/p mechanical fall on 12/26/24 (Trauma transfer from [place]) Imaging performed: CT HNCAP ([place] [facility], 12/26) CXR, XR left elbow/forearm (12/26) CXR x 2 (12/27) CXR x 3, CTA chest, CTAP (12/28) CXR (12/29) CXR (12/30) CXR (12/31) CT brain, CXR x 2, KUB (01/01) CXR (01/02) CXR (01/03) CXR (01/04) DVT US BUE (01/05) CT EMMANUEL (01/07) XR left femur (01/08) Traumatic Injuries: Left 6-9 rib fractures with associated hemopneumothorax and subcutaneous emphysema Left elbow contusion with small skin tear Operations/Procedures: 1. 12/27/2024- Left chest tube inserted 2. 12/28/2024- Left subclavian CVC (removed 12/30) 3. 01/10/2025- Left psoas muscle abscess aspiration with IR Care Plan: Left rib fractures with hemopneumothorax S/p left chest tube insertion 12/27/24 CT to water seal 12/28, removed 01/01 CXR (01/04): Persistent left lung base focal opacity CT chest (01/07): Trace left pleural effusion Respiratory status stable on RA Aggressive pulmonary hygiene Multimodal pain control Mobilize as tolerated ETOH abuse, delirium Patient reports daily wine consumption 3-4 glasses Received Phenobarbital and Ativan at [facility] and during transfer Phenobarb taper discontinued 2/2 sedation CIWA protocol Continue Thiamine, Folate Social work consult Hold Seroquel due to drowsiness Continue Melatonin at Geriatrics consulted, appreciate recommendations Acute urinary retention Villela inserted 12/28 due to high volume retention Villela catheter removed 12/31 and void trial initiated Required straight catheterization x 1 due to continued retention on 01/01 Villela catheter reinserted 01/02 due to high volume retention Urology consulted, appreciate recommendations Per urology: Consider formal urology driven void trial prior to discharge if milestones of mentation at baseline, improvement in ambulation, and having regular bowel movements are met Void trial initiated 01/09, patient voiding without difficulty following removal Follow-up with urology outpatient for work-up of urinary retention and renal cyst Leukocytosis WBCs 6.45 from 7.14 Afebrile, HDS Respiratory status stable on RA Blood cultures (12/28): NGTD UA (12/28): +WBCs, leuks UC (12/28): +E.Coli Repeat UA (01/01): +WBCs, leuks Received Zosyn x 7 days for UTI (12/28-12/31 and (01/02-01/06) C.diff PCR (01/02): Positive C.diff EIA (820): Negative PO Vancomycin QID completed (01/03-01/12) CT CAP (01/07): Interval development of abnormal asymmetric enlargement of the left psoas muscle with central area of hypodensity measuring 2 cm. This finding is concerning for possible myositis and developing abscess. ID and IR consulted, appreciate recommendations Left psoas muscle wound culture (01/10): NGx3d Trend daily CBC SVT Patient with episodes of SVT necessitating IV Metoprolol for conversion to SR ECHO (01/02): EF 60%, mild concentric LVH, LV/RV function normal, mild 1+-2+ AV regurg Consider increasing PO Metoprolol from 12.5 mg TID to 25 mg TID if HR remains uncontrolled PRN IV Metoprolol 5 mg every 6 hours for HR > 120 EP consulted, appreciate recommendations Per EP: SVT likely related to ETOH abuse, electrolyte disturbances, and post-fall inflammation from hemopneumothorax and rib fractures. Continue Metoprolol 25 mg TID. Should she have prolonged recurrences of SVT, a combination of Cardizem CD 120 mg along with beta evon may be considered. No indication for antiarrhythmic at this time. Continuous cardiac monitoring Monitor electrolytes and supplement as needed Acute blood loss anemia, ?UGIB- Stable Hgb 8.5 from 9.2 from 8.4 +Tarry stool x 1 on 01/02/25 Likely in setting of NSAID administration with history of IBD Okay for DVT chemoprophylaxis; if Hgb continues to decrease, consult GI Continue Pantoprazole BID Transfuse for Hgb < 7.0 or for signs of bleeding Trend daily CBC SOUND consulted for medical management, appreciate recommendations Continue home medications as ordered Current diet order: DIET FOOD CONSISTENCY CONTROLLED Pain regimen: Scheduled Tylenol, Lidocaine patch, PRN Oxycodone Bowel regimen: None Labs: As above PPX: DVT: Lovenox 30 mg BID, SCDs, mobilize Ulcer: Pantoprazole BID Vit D level if > 65 yo: 46.4 Consulted Services: SICU ID EP SOUND IR PT/OT Social work Dispo Planning: PT/OT recommend SNF. Case management following. Medically stable for discharge to SNF. Incidentals: None Follow Up Needs: PCP Staff Trauma Surgeon: Dr. Blanc Portions of text from this note were copied from prior patient encounter. All relevant information was updated to reflect most-recent clinical decision-making and plan of care 01/13/2025. SIGNATURE: Carl Tellez APRN.CNP PATIENT NAME: Cristino Verdugo DATE: 01/13/2025 TIME: 2:33 PM Pager: see below Trauma Service Pager: For questions or concerns Mon-Fri 6a-5p please page [phone]. After 5pm and on Weekends and Holidays, please page [phone] if in ICU or [phone] if on RNF. INPATIENT ATTENDING: Dr. Phillips High-Risk Geriatric Patient Vulnerabilities: Impaired Cognition, Impaired Functional Status, and Malnutrition Diet: DIET FOOD CONSISTENCY CONTROLLED Recommendations: Cognition: Impaired Cognition (Consult Geriatrics) bCAM Score (Calc): Negative Delirium Screen Confusion Assessment Method (CAM - ICU Score): (!) Positive Geriatric Consult (Age over 85 or impaired cognition):Consult to [employer] Palliative Care/Hospice: Consult not required Rehab/Therapy: PT/OT Recommendations: PT: Recommended Discharge Disposition: Subacute/SNF OT: Recommended Discharge Disposition: Subacute/SNF Swallow: Swallow Screening Result - Step 2: PASSED Swallow Screen - Patient Able To Swallow 3 Ounce Cup of Water Without Exhibiting Signs Of Aspiration Speech Recommendations: Speech: Recommended Discharge Disposition: Continued Skilled Speech Therapy Speech Diet: Diet Recommendations: Soft and Bite-Sized IDDSI Level 6, Thin Liquids IDDSI Level 0 Nutrition: Consult to Nutrition Therapy Nutrition Recommendations: MST: Total MST Score (Calculated): 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 diet (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) Supplements: [employer] 1.4, [employer] 1.0 Refer to: Speech/Language (eval to ensure diet appropriate for pt give confusion.) Vitamins and Minerals: Multivitamin with minerals Medications: Appetite stimulants Discharge Recommendations: Diet, Oral Supplements Diet: 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 Oral Supplements: high mike/protein supplement/snack of choice 2-3x/day between meals Pharmacy: Consult not needed Social Work: NA Anticipated Discharge Disposition: Fdc Facility PLAN OF CARE Observed: 01/13/2025 2:20 PM Status: COMPLETED Source: [facility] HNO ID: [id number] Author: BRENDA HOPKINS III, MD Service: Infectious Disease Author Type: Physician Type: Plan of Care Filed: 01/13/2025 14:20 Note Text: Noted that psoas fluid collection remains no growth at two days. Suspect is hematoma. Complete the 10 days of oral vancomycin for C. Diff. Will sign off. Please call with questions. SIGNATURE: Brenda Hopkins III, MD PATIENT NAME: Cristino Verdugo DATE: January 13, 2025 TIME: 2:20 PM [facility] CELL: [phone] BAS METAB 2000 PNL SERPL Collected: 12:31 AM Status: F Source: [facility] Order Comment: Specimen Type : BLOOD SPECIMEN Ordering Facility: [facility] Address: [address] [place] [address] TYPE CODE TESTS RESULT OUT OF RANGE REFERENCE UNITS LAB 2345-7(LOINC) Glucose SerPl-mCnc 137 High 74-99 mg/dL Result Comment: The [place] Diabetes Association (ADA) provides guidance for cutoff values for fasting glucose and random glucose. The ADA defines fasting as no caloric intake for at least 8 hours. Fasting plasma glucose results between 100 to 125 mg/dL indicate increased risk for diabetes (prediabetes). Fasting plasma glucose results greater than or equal to 126 mg/dL meet the criteria for diagnosis of diabetes. In the absence of unequivocal hyperglycemia, results should be confirmed by repeat testing. In a patient with classic symptoms of hyperglycemia or hyperglycemic crisis, random plasma glucose results greater than or equal to 200 mg/dL meet the criteria for diagnosis of diabetes. Reference: Standards of Medical Care in Diabetes 2016, [place] Diabetes Association. Diabetes Care. 2016.39(Suppl 1). LAB 3094-0(LOINC) BUN SerPl-mCnc 15 7-21 mg/dL LAB 2160-0(LOINC) Creat SerPl-mCnc 0.67 0.58-0.96 mg/dL LAB 2951-2(LOINC) Sodium SerPl-sCnc 135 Low 136-144 mmol/L LAB 2823-3(LOINC) Potassium SerPl-sCnc 4.0 3.7-5.1 mmol/L LAB 2075-0(LOINC) Chloride SerPl-sCnc 106 98-107 mmol/L LAB 2028-9(LOINC) CO2 SerPl-sCnc 20 Low 22-30 mmol/L LAB 1863-0(LOINC) Anion Gap4 SerPl-sCnc 9 8-15 mmol/L LAB 01438-9(LOINC) Calcium SerPl-mCnc 8.6 8.5-10.2 mg/dL LAB 77596-9(LOINC) eGFRcr SerPlBld CKD-EPI 2020 90 >=60 mL/min/1. 73m??? Result Comment: Estimated Gl omerular Filtration Rate (eGFR) is calculated using the 2020 CKD-EPI creatinine equation. This equation utilizes serum creatinine, sex, and age as parameters. The creatinine assay has traceable calibration to isotope dilution-mass spectrometry. Refer to KDIGO guidelines for clinical interpretation. In patients with unstable renal function, e.g. those with acute kidney injury, the eGFR may not accurately reflect actual GFR. Performed By: #### [id number] # ### [facility] CLIA [id number] [address] [place] [address] [place] CBC PNL BLD AUTO Collected: 01/13/2025 12:31 AM Stat us: F Source: [facility] Order Comment: Specimen Type : BLOOD SPECIMEN Ordering Facility: [facility] Address: [address] [place] [address] TYPE CODE TESTS RESULT OUT OF RANGE REFERENCE UNITS LAB 6690-2(LOINC) WBC # Bld Auto 6.45 3.70-11.00 k/uL LAB 789-8(LOINC) RBC # Bld Auto 2.40 Low 3.90-5.20 m/ uL LAB 718-7(LOINC) Hgb Bld-mCnc 8.5 Low 11.5-15.5 g/dL LAB 4544-3(LOINC) Hct VFr Bld Auto 25.9 Low 36.0-46.0 % LAB 787-2(LOINC) MCV RBC Auto 107.9 High 80.0-100.0 fL LAB 785-6(LOINC) MCH RBC Qn Auto 35.4 High 26.0-34.0 pg LAB 786-4(LOINC) MCHC RBC Auto-mCnc 32.8 30.5-36.0 g/dL LAB 65045-6(LOINC) RDW RBC-Rto 14.0 11.5-15.0 % LAB 777-3(LOINC) Platelet # Bld Auto 411 High 150-400 k/uL LAB 84561-2(LOINC) PMV Bld Auto 9.7 9.0-12.7 fL LAB 771-6(LOINC) nRBC # Bld Auto <0.01 <0.01 k/uL Performed By: #### 93025-1 # ### [facility] CLIA [id number] [address] NURSING PROG Observed: 01/12/2025 2:04 PM Status: COMPLETED Source: [facility] HNO ID: [id number] Author: MICHELLE LIZARRAGA RN Service: Nursing Author Type: Registered Nurse Type: Nursing Progress Note Filed: 01/12/2025 14:05 Note Text: Other: Sepsis alert due hypotension. BP was rechecked after pt was repositioned. All vitals stable. Trauma team notified. No further orders. PLAN OF CARE Observed: 01/12/2025 11:40 AM Status: COMPLETED Source: [facility] HNO ID: [id number] Author: BRENDA HOPKINS III, MD Service: Infectious Disease Author Type: Physician Type: Plan of Care Filed: 01/12/2025 11:40 Note Text: Noted that no update to culture result so far. Still no growth at 1 day. Continue on oral vancomycin for C. Diff. Await further updates on culture from psoas muscle. SIGNATURE: Brenda Hopkins III, MD PATIENT NAME: Cristino Verdugo DATE: January 12, 2025 TIME: 11:40 AM [facility] CELL: [phone] BAS METAB 1999 PNL SERPL Collected: 12:27 AM Status: F Source: [facility] Order Comment: Specimen Type : BLOOD SPECIMEN Ordering Facility: [facility] Address: [address] [place] [address] TYPE CODE TESTS RESULT OUT OF RANGE REFERENCE UNITS LAB 2345-7(LOINC) Glucose SerPl-mCnc 92 74-99 mg/dL Result Comment: The [place] Diabetes Association (ADA) provides guidance for cutoff values for fasting glucose and random glucose. The ADA defines fasting as no caloric intake for at least 8 hours. Fasting plasma glucose results between 100 to 125 mg/dL indicate increased risk for diabetes (prediabetes). Fasting plasma glucose results greater than or equal to 126 mg/dL meet the criteria for diagnosis of diabetes. In the absence of unequivocal hyperglycemia, results should be confirmed by repeat testing. In a patient with classic symptoms of hyperglycemia or hyperglycemic crisis, random plasma glucose results greater than or equal to 200 mg/dL meet the criteria for diagnosis of diabetes. Reference: Standards of Medical Care in Diabetes 2016, [place] Diabetes Association. Diabetes Care. 2016.39(Suppl 1). LAB 3094-0(LOINC) BUN SerPl-mCnc 9 7-21 mg/dL LAB 2160-0(LOINC) Creat SerPl-mCnc 0.72 0.58-0.96 mg/dL LAB 2951-2(LOINC) Sodium SerPl-sCnc 135 Low 136-144 mmol/L LAB 2823-3(LOINC) Potassium SerPl-sCnc 3.9 3.7-5.1 mmol/L LAB 2075-0(LOINC) Chloride SerPl-sCnc 103 98-107 mmol/L LAB 202-9(LOINC) CO2 SerPl-sCnc 20 Low 22-30 mmol/L LAB 1863-0(LOINC) Anion Gap4 SerPl-sCnc 12 8-15 mmol/L LAB 31928-9(LOINC) Calcium SerPl-mCnc 9.0 8.5-10.2 mg/dL LAB 02803-6(LOINC) eGFRcr SerPlBld CKD-EPI 2020 86 >=60 mL/min/1. 73m??? Result Comment: Estimated Gl omerular Filtration Rate (eGFR) is calculated using the 2020 CKD-EPI creatinine equation. This equation utilizes serum creatinine, sex, and age as parameters. The creatinine assay has traceable calibration to isotope dilution-mass spectrometry. Refer to KDIGO guidelines for clinical interpretation. In patients with unstable renal function, e.g. those with acute kidney injury, the eGFR may not accurately reflect actual GFR. Performed By: #### 87103-7 # ### [facility] CLIA [id number] [address] [place] CBC PNL BLD AUTO Collected: 01/12/2025 12:27 AM Stat us: F Source: [facility] Order Comment: Specimen Type : BLOOD SPECIMEN Ordering Facility: [facility] Address: [address] [place] [address] TYPE CODE TESTS RESULT OUT OF RANGE REFERENCE UNITS LAB 6690-2(LOINC) WBC # Bld Auto 7.14 3.70-11.00 k/uL LAB 789-8(LOINC) RBC # Bld Auto 2.61 Low 3.90-5.20 m/ uL LAB 718-7(LOINC) Hgb Bld-mCnc 9.2 Low 11.5-15.5 g/dL LAB 4544-3(LOINC) Hct VFr Bld Auto 27.7 Low 36.0-46.0 % LAB 787-2(LOINC) MCV RBC Auto 106.1 High 80.0-100.0 fL LAB 785-6(LOINC) MCH RBC Qn Auto 35.2 High 26.0-34.0 pg LAB 786-4(LOINC) MCHC RBC Auto-mCnc 33.2 30.5-36.0 g/dL LAB 67492-2(LOINC) RDW RBC-Rto 14.2 11.5-15.0 % LAB 777-3(LOINC) Platelet # Bld Auto 514 High 150-400 k/uL LAB 77811-2(LOINC) PMV Bld Auto 9.9 9.0-12.7 fL LAB 771-6(LOINC) nRBC # Bld Auto <0.01 <0.01 k/uL Performed By: #### 05327-4 # ### [facility] CLIA [id number] [address] [facility] CASE MANAGEM Observed: 01/11/2025 2:13 PM Status: COMPLETED Source: [facility] HNO ID: [id number] Author: SHAVONNE MEIER RN Service: Care Management Author Type: Registered Nurse Type: Care Mgt Progress Note Filed: 01/11/2025 14:17 Note Text: CARE MANAGEMENT PROGRESS NOTE SERVICE DATE: 01/11/2025 SERVICE TIME: 2:17 PM LOS: 16 days IMM Follow Up Copy Given: Yes Copy given to:: Patient Tv Host Tv Host Name/Relationship: PANKAJ VERDUGO [phone] Method: By Phone Verbalizes understanding SIGNATURE: Shavonne Meier RN PATIENT NAME: Cristino Verdugo DATE: January 11, 2025 TIME: 2:17 PM PLAN OF CARE Observed: 01/11/2025 12:54 PM Status: COMPLETED Source: [facility] HNO ID: [id number] Author: BRENDA HOPKINS III, MD Service: Infectious Disease Author Type: Physician Type: Plan of Care Filed: 01/11/2025 12:55 Note Text: Noted that fluid aspirated from psoas muscle is no growth. Continue for now with plan for 10 days of vancomycin for C. Diff. Will keep an eye on the cultures. SIGNATURE: Brenda Hopkins III, MD PATIENT NAME: Cristino Verdugo DATE: January 11, 2025 TIME: 12:55 PM [facility] CELL: [phone] PROGRESS Observed: 01/11/2025 12:29 PM Status: COMPLETED Source: [facility] HNO ID: [id number] Author: MARLYN SAHA MD Service: Hospital Medicine Author Type: Physician Type: Progress Notes Filed: 01/11/2025 12:34 Note Text: DEPARTMENT OF HOSPITAL MEDICINE PROGRESS NOTE SERVICE DATE: 01/11/2025 SERVICE TIME: 12:29 PM Hospital Medicine/Primary Attending: Marlyn Saha MD NIGHT AND WEEKEND COVERAGE: After 7pm please page [phone] MEDICATIONS: Current Facility-Administered Medications Medication Dose Route Frequency NaCl 0.9% iv flush bag 20 mL INTRAVENOUS PRN ondansetron 4 mg tab(s) (ZOFRAN) 4 mg ORAL q 6 H PRN Or ondansetron (PF) 4 mg injection (ZOFRAN) 4 mg INTRAVENOUS q 6 H PRN folic acid 1 mg tab(s) 1 mg ORAL DAILY lidocaine 4 % 2 patch (SALONPAS) 2 patch TRANSDERMAL DAILY And lidocaine patch - REMOVE OTHER AT BEDTIME And lidocaine - VERIFY PATCH OTHER q 8 H ipratropium-albuterol 3 mL nebulizer solution (DUONEB) 3 mL INHALATION q 6 H PRN cetirizine 10 mg tab(s) (ZYRTEC) 10 mg ORAL DAILY rosuvastatin 10 mg tab(s) (CRESTOR) 10 mg ORAL AT BEDTIME metoprolol 5 mg injection (LOPRESSOR) 5 mg INTRAVENOUS q 6 H PRN pantoprazole 40 mg injection (PROTONIX) 40 mg INTRAVENOUS BID AC (0600/1600) enoxaparin 30 mg injection (LOVENOX) 30 mg SUBCUTANEOUS q 12 HR therapeutic multivitamin-minerals tablet (THERA-M PLUS) 1 tablet ORAL DAILY melatonin 6 mg tab(s) 6 mg ORAL DAILY (8 PM) vancomycin 125 mg oral liquid (VANCOCIN) 125 mg ORAL QID iv contrast (radiology procedure) INTRAVENOUS DIRECTED PRN acetaminophen 1,000 mg tab(s) (TYLENOL) 1,000 mg ORAL TID budesonide, enteric coated 9 mg cap(s) (ENTOCORT EC) 9 mg ORAL DAILY metoprolol tartrate (short acting) 25 mg tab(s) (LOPRESSOR) 25 mg ORAL q 8 H thiamine 200 mg tab(s) (VITAMIN B1) 200 mg ORAL/FEEDING TUBE TID oxyCODONE IR 2.5-5 mg tab(s) (ROXICODONE) 2.5-5 mg ORAL q 6 H PRN DATA: Diagnostic tests reviewed for today's visit: Lab data: CBC: Recent Labs 01/11/25 0745 01/10/25 0235 01/09/25 0154 01/08/25 0359 01/07/25 0433 01/06/25 0638 01/05/25 0512 WBC 9.46 9.85 10.32 9.23 11.13* 8.42 9.83 HB 8.4* 8.9* 8.5* 8.4* 9.5* 8.0* 8.5* HCT 27.2* 27.2* 25.7* 25.1* 27.9* 23.7* 25.2* PLT 384 531* 445* 414* 405* 347 366 MCV 113.8* 107.1* 105.3* 105.0* 104.9* 104.9* 103.7* RDWCV 14.2 14.0 13.6 13.8 13.4 13.4 13.1 COAG: No results for input(s): "APTT", "INR" in the last 168 hours. BMP: Recent Labs 01/11/25 0745 01/10/25 0235 01/09/25 0154 01/08/25 0359 01/07/25 0433 01/06/25 1546 01/06/25 0638 01/05/25 0512 GLUC 96 72* 84 89 83 93 85 79 NA 135* 134* 133* 132* 132* 134* 134* 133* K 3.9 4.5 4.7 3.1* 4.2 2.9* 2.7* 3.4* CHLOR 103 103 104 100 100 101 103 101 CO2 18* 19* 19* 21* 17* 21* 18* 19* ANION 14 12 10 11 15 12 13 13 BUN 7 6* 5* 6* 5* 5* 6* 7 CREAT 0.67 0.60 0.55* 0.59 0.50* 0.61 0.63 0.74 CHEM: Recent Labs 01/11/25 0745 01/10/25 0235 01/09/25 0154 01/08/25 0359 01/07/25 0433 01/06/25 1546 01/06/25 0638 01/05/25 0512 CA 8.5 9.2 8.7 8.5 8.5 7.8* 7.7* 8.2* MG -- -- -- 2.0 -- -- -- -- HEPATIC: No results for input(s): "ALKPHOS", "ALT", "AST", "TBILI", "LIPASE" in the last 168 hours. URINALYSIS:No results for input(s): "PH", "SPGR", "UGLUC", "UBILI", "UKET", "UHB", "UPROT", "UROBIL", "UWBC", "SSA" in the last 168 hours. Invalid input(s): "NITR" CARDIAC: No results for input(s): "PBNP" in the last 168 hours. Problem List Pneumothorax (POA: Yes) Fall (POA: Yes) Closed fracture of multiple ribs of left side (POA: Yes) Hemopneumothorax on left (POA: Yes) Alcohol use (POA: Yes) Type 2 diabetes (HCC) (POA: Yes) History of stroke (POA: Yes) History of cholecystectomy (POA: Yes) IBS (irritable bowel syndrome) (POA: Yes) Posttraumatic respiratory insufficiency (POA: Yes) At risk for delirium (POA: Yes) Acute cystitis without hematuria (POA: Clinically Undetermined) Acute urinary retention (POA: Clinically Undetermined) Hypokalemia (POA: No) Hyponatremia (POA: No) SVT (supraventricular tachycardia) (HCC) (POA: Status not on file) Hypophosphataemia (POA: Status not on file) Malnutrition of mild degree (HCC) (POA: Status not on file) Renal cyst (POA: Status not on file) Delirium (POA: Yes) Constipation (POA: Status not on file) DNR (do not resuscitate) discussion (POA: Status not on file) Frailty syndrome in geriatric patient (POA: Status not on file) Goals of care, counseling/discussion (POA: Status not on file) Neurodegenerative disorder (POA: Status not on file) Pain (POA: Status not on file) C. difficile colitis (POA: Status not on file) Psoas muscle abscess (HCC) (POA: Status not on file) Hemothorax (POA: Status not on file) PHYSICAL EXAM: BP 92/58 Pulse 99 Temp (Src) 98.1 (Oral) Resp 16 Ht 5' 1.496" (1.56m) Wt 130 lb 1.1 oz (59.0kg) SpO2 98% BMI 24.18 kg/(m2). O2 Therapy: Room Air Follow up : Pt seen and examined. No fever, chills, nausea, vomiting GENERAL: Alert, no distress, cooperative SKIN: Skin color, texture, turgor normal. No rashes or lesions. HEAD/SINUSES: No significant findings OROPHARYNX: Lips, mucosa, and tongue normal. Teeth and gums normal. Oropharynx normal. NECK: No jugulovenous distention, No carotid bruits, Carotid pulse normal contour, Supple BACK: Back symmetric, Normal curvature, ROM normal, No CVAT. LUNGS: Lungs clear to auscultation, Good diaphragmatic excursion CARDIAC: Normal S1 and S2; no rubs, murmurs, or gallops ABDOMEN: Abdomen soft, non-tender, BS normal, No masses or organomegaly EXTREMITIES: Minimal left thigh tenderness ASSESSMENT/PLAN: 1. Multiple left-sided rib fractures complicated by hemopneumothorax and subcutaneous emphysema. Patient status post chest tube placement. Management per primary team 2. Anemia. Likely iron deficiency. Iron level noted to be 37. Hemoglobin stable at 8.4. Recommend for patient to be started on p.o. iron on discharge 3. Alcohol use disorder with alcohol withdrawal and delirium. Improved and resolved at this time. Recommend consulting addiction medicine. 4. Paroxysmal supraventricular tachycardia. Most recent EKG showing sinus tachycardia. Currently on metoprolol and was given IV fluids. Primary team has consulted EP. EP did evaluate the patient and recommended continuing metoprolol. They have signed off. 5. Hypokalemia-improved. Replace as needed 6. Concern for psoas abscess - Per primary team, IR aspiration has been ordered. Per IR, hemorrhagic sample aspirated and this was sent for cultures. No growth at this time. ID following. Patient recommended to be followed off antibiotics for the abscess at this time. 7. C. difficile - On oral vancomycin for 10 days 8. Acute urinary retention - Urology consulted by primary team and patient recommended for void trial. Per their note, void trial on 01/09. They recommend outpatient follow-up for urinary retention and renal cyst Malnutrition Diagnosis supported by Registered Dietitian:Mild Protein-Calorie Malnutrition Based on: Insufficient Energy Intake Assessment: I have reviewed the result of the malnutrition assessment and plan and agree Plan: Diet, Supplements, Referral, Vitamin/Mineral Supplements, Medications Patient is hemodynamically stable. Heart rate improved. Lab work stable. Culture negative for any growth at this time and ID is following. Patient is pending final recommendations by ID based on culture data before placement is arranged per PT and OT. Given this, hospital medicine team will sign off. Please reach out with any further questions/concerns. Primary team informed. VTE Prophylaxis: As per primary team Disposition: To be determined Plan of care discussed with: Provider, RN, Patient Medication and Non-Pharmacologic VTE Prophylaxis/Anticoagulants Anticoagulant AND Antiplatelet Medications (From admission, onward) Start Dose Route Frequency Last Action Ordered Stop 01/03/25 1000 enoxaparin 30 mg injection (LOVENOX) (enoxaparin injection (LOVENOX)) 30 mg SQ EVERY 12 HOURS Given, 01/11 0904 01/03/25 0948 -- 12/26/24 1434 pneumatic compression sleeve(s) (in,oh) 12/26/24 1434 activity - mobilize patient (in,ca) Portions of this note including HPI, ROS, impression/plan, and examination may have been copied forward from 01/10/2025 to 01/11/2025 as to provide important historical information essential in contributing to medical decision making. Documentation has been reviewed and edited as necessary to support clinical decision making for today's visit and to reflect my own independent evaluation of this patient. SIGNATURE: Marlyn Saha MD PATIENT NAME: Cristino Verdugo DATE: January 11, 2025 TIME: 12:29 PM PAGER/CONTACT #: Team color pager Disclaimer: Portions of this note may have been generated using [employer] voice recognition software. Reasonable efforts were made to correct any dictation errors that resulted due to the programming of this software but some may still be present. Please note, the time of this note does not reflect the time I saw this patient today, but the time of this documentation. PROGRESS Observed: 01/11/2025 11:49 AM Status: COMPLETED Source: [facility] HNO ID: [id number] Author: CHRISTIE NEIL APRN.RENNY Service: General Surgery Author Type: Nurse Practitioner Type: Progress Notes Filed: 01/11/2025 11:54 Note Text: Trauma Surgery Progress Note SERVICE DATE: 01/11/2025 Trauma Service Pager: For questions or concerns Mon-Fri 6a-5p please page [phone]. After 5pm and on Weekends and Holidays, please page [phone] if in ICU or [phone] if on RNF. SUBJECTIVE: No acute overnight events. Patient is awake, alert and oriented x 2, delirious. She reports mild left chest wall pain. Respiratory status stable on RA. She denies chest pain, shortness of breath, nausea, vomiting. Awaiting final ID recommendations and SNF placement. OBJECTIVE: Vitals: Temp (24hrs), Av.9 ?C (98.5 ?F), Min:36.6 ?C (97.9 ?F), Max:37.2 ?C (99 ?F) BP 92/58 Pulse 99 Temp 36.7 ?C (98.1 ?F) (Oral) Resp 16 Ht 156.2 cm (5' 1.5") Wt 59 kg (130 lb 1.1 oz) SpO2 98% BMI 24.18 kg/m? O2 Therapy: Room Air IANDO: Date 01/10/25 07 - 01/11/25 0659 01/11/25 07 - 01/12/25 0659 Shift 6112-2821 5929-1567 0448-8787 24 Hour Total 9696-7494 6122-2450 7112-9322 24 Hour Total INTAKE PO 500 500 PO 500 500 Shift Total 500 500 OUTPUT Urine Urine Not Saved. 1 x 3 x 4 x 1 x 1 x # of BMs Number of BMs 1 x 1 x Shift Total Weight (kg) 59 59 59 59 59 59 59 59 MEDICATIONS: Current Facility-Administered Medications Medication Dose Route Frequency oxyCODONE IR 2.5-5 mg tab(s) (ROXICODONE) 2.5-5 mg ORAL q 6 H PRN thiamine 200 mg tab(s) (VITAMIN B1) 200 mg ORAL/FEEDING TUBE TID iv contrast (radiology procedure) INTRAVENOUS DIRECTED PRN acetaminophen 1,000 mg tab(s) (TYLENOL) 1,000 mg ORAL TID budesonide, enteric coated 9 mg cap(s) (ENTOCORT EC) 9 mg ORAL DAILY metoprolol tartrate (short acting) 25 mg tab(s) (LOPRESSOR) 25 mg ORAL q 8 H vancomycin 125 mg oral liquid (VANCOCIN) 125 mg ORAL QID enoxaparin 30 mg injection (LOVENOX) 30 mg SUBCUTANEOUS q 12 HR therapeutic multivitamin-minerals tablet (THERA-M PLUS) 1 tablet ORAL DAILY melatonin 6 mg tab(s) 6 mg ORAL DAILY (8 PM) pantoprazole 40 mg injection (PROTONIX) 40 mg INTRAVENOUS BID AC (0600/1600) metoprolol 5 mg injection (LOPRESSOR) 5 mg INTRAVENOUS q 6 H PRN folic acid 1 mg tab(s) 1 mg ORAL DAILY lidocaine 4 % 2 patch (SALONPAS) 2 patch TRANSDERMAL DAILY And lidocaine patch - REMOVE OTHER AT BEDTIME And lidocaine - VERIFY PATCH OTHER q 8 H ipratropium-albuterol 3 mL nebulizer solution (DUONEB) 3 mL INHALATION q 6 H PRN cetirizine 10 mg tab(s) (ZYRTEC) 10 mg ORAL DAILY rosuvastatin 10 mg tab(s) (CRESTOR) 10 mg ORAL AT BEDTIME NaCl 0.9% iv flush bag 20 mL INTRAVENOUS PRN ondansetron 4 mg tab(s) (ZOFRAN) 4 mg ORAL q 6 H PRN Or ondansetron (PF) 4 mg injection (ZOFRAN) 4 mg INTRAVENOUS q 6 H PRN Labs: Recent Labs 01/11/25 0745 01/10/25 0235 NA 135* 134* K 3.9 4.5 CHLOR 103 103 CO2 18* 19* BUN 7 6* CREAT 0.67 0.60 GLUC 96 72* ANION 14 12 CA 8.5 9.2 WBC 9.46 9.85 HB 8.4* 8.9* HCT 27.2* 27.2* PLT 384 531* PHYSICAL EXAM: Genl: Appears age appropriate. No acute distress. Resting comfortably. Head/Face: Normocephalic. Atraumatic. Eyes: EOMI. Sclera not icteric, not injected Resp: Lung sounds are clear bilat. No wheezes. No rales. Breathing is non-labored on RA @ 98%. Left chest wall tenderness without crepitus. CVS: RRR as above; 2+ pulses at RA, DP, PT bilat. GI: Abdomen is soft, non-tender, not distended. Bowel sounds normoactive. No peritonitis. : Villela catheter draining clear, yellow urine. MSK: Extremities without clubbing, cyanosis, edema. Normal ROM x 4. Skin: Warm and dry. Not jaundiced. Moderately left forearm edema. Ecchymosis to left upper extremity. Scattered ecchymosis to right upper extremity. Ecchymosis to left chest, hip. Neuro: AANDOx2. Strength and sensation normal. BRAGA. Psych: Drowsy, slow to respond. ASSESSMENT AND PLAN: Assessment Active Hospital Problems Diagnosis Date Noted Pneumothorax 12/26/2024 Hemothorax 01/11/2025 C. difficile colitis 01/08/2025 Psoas muscle abscess (HCC) 01/08/2025 Delirium 01/07/2025 Constipation 01/07/2025 DNR (do not resuscitate) discussion 01/07/2025 Frailty syndrome in geriatric patient 01/07/2025 Goals of care, counseling/discussion 01/07/2025 Neurodegenerative disorder 01/07/2025 Pain 01/07/2025 Renal cyst 01/04/2025 Malnutrition of mild degree ([facility]) 01/03/2025 At risk for delirium 12/31/2024 Acute cystitis without hematuria 12/31/2024 Acute urinary retention 12/31/2024 Hypokalemia 12/31/2024 Hyponatremia 12/31/2024 SVT (supraventricular tachycardia) ([facility]) 12/31/2024 Hypophosphataemia 12/31/2024 Posttraumatic respiratory insufficiency 12/27/2024 Fall 12/26/2024 Closed fracture of multiple ribs of left side 12/26/2024 Hemopneumothorax on left 12/26/2024 Alcohol use 12/26/2024 Type 2 diabetes (HCC) 12/26/2024 Chronic IBS (irritable bowel syndrome) 12/26/2024 Chronic History of stroke 2013 Chronic History of cholecystectomy 2008 Chronic Assessment: 79-year old female s/p mechanical fall on 12/26/24 (Trauma transfer from [place]) Imaging performed: CT HNCAP ([place] [facility], 12/26) CXR, XR left elbow/forearm (12/26) CXR x 2 (12/27) CXR x 3, CTA chest, CTAP (12/28) CXR (12/29) CXR (12/30) CXR (12/31) CT brain, CXR x 2, KUB (01/01) CXR (01/02) CXR (01/03) CXR (01/04) DVT US BUE (01/05) CT EMMANUEL (01/07) XR left femur (01/08) Traumatic Injuries: Left 6-9 rib fractures with associated hemopneumothorax and subcutaneous emphysema Left elbow contusion with small skin tear Operations/Procedures: 1. 12/27/2024- Left chest tube inserted 2. 12/28/2024- Left subclavian CVC (removed 12/30) 3. 01/10/2025- Left psoas muscle abscess aspiration with IR Care Plan: Left rib fractures with hemopneumothorax S/p left chest tube insertion 12/27/24 CT to water seal 12/28, removed 01/01 CXR (01/04): Persistent left lung base focal opacity CT chest (01/07): Trace left pleural effusion Respiratory status stable on RA Aggressive pulmonary hygiene Multimodal pain control Mobilize as tolerated ETOH abuse, delirium Patient reports daily wine consumption 3-4 glasses Received Phenobarbital and Ativan at [facility] and during transfer Phenobarb taper discontinued 2/ sedation CIWA protocol Continue Thiamine, Folate Social work consult Hold Seroquel due to drowsiness Continue Melatonin at Geriatrics consulted, appreciate recommendations Acute urinary retention Villela inserted 12/28 due to high volume retention Villela catheter removed 12/31 and void trial initiated Required straight catheterization x 1 due to continued retention on 01/01 Villela catheter reinserted 01/02 due to high volume retention Urology consulted, appreciate recommendations Per urology: Consider formal urology driven void trial prior to discharge if milestones of mentation at baseline, improvement in ambulation, and having regular bowel movements are met Void trial initiated 01/09, patient voiding without difficulty following removal Follow-up with urology outpatient for work-up of urinary retention and renal cyst Leukocytosis WBCs 10.3 -> 9.8 -> 9.4 Afebrile, HDS Respiratory status stable on RA Blood cultures (12/28): NGTD UA (12/28): +WBCs, leuks UC (12/28): +E.Coli Repeat UA (01/01): +WBCs, leuks Received Zosyn x 7 days for UTI (12/28-12/31 and (01/02-01/06) C.diff PCR (01/02): Positive C.diff EIA (820): Negative Continue PO Vancomycin QID (01/03-01/12) CT CAP (01/07): Interval development of abnormal asymmetric enlargement of the left psoas muscle with central area of hypodensity measuring 2 cm. This finding is concerning for possible myositis and developing abscess. ID and IR consulted, appreciate recommendations Left psoas muscle wound culture (01/10): NGTD, many red blood cells Trend daily CBC SVT Patient with episodes of SVT necessitating IV Metoprolol for conversion to SR ECHO (01/02): EF 60%, mild concentric LVH, LV/RV function normal, mild 1+-2+ AV regurg Consider increasing PO Metoprolol from 12.5 mg TID to 25 mg TID if HR remains uncontrolled PRN IV Metoprolol 5 mg every 6 hours for HR > 120 EP consulted, appreciate recommendations Per EP: SVT likely related to ETOH abuse, electrolyte disturbances, and post-fall inflammation from hemopneumothorax and rib fractures. Continue Metoprolol 25 mg TID. Should she have prolonged recurrences of SVT, a combination of Cardizem CD 120 mg along with beta evon may be considered. No indication for antiarrhythmic at this time. Continuous cardiac monitoring Monitor electrolytes and supplement as needed Acute blood loss anemia, ?UGIB- Stable Hgb 8.5 -> 8.9 -> 8.4 +Tarry stool x 1 on 01/02/25 Likely in setting of NSAID administration with history of IBD Okay for DVT chemoprophylaxis; if Hgb continues to decrease, consult GI Continue Pantoprazole BID Transfuse for Hgb < 7.0 or for signs of bleeding Trend daily CBC SOUND consulted for medical management, appreciate recommendations Continue home medications as ordered Current diet order: DIET FOOD CONSISTENCY CONTROLLED Pain regimen: Scheduled Tylenol, Lidocaine patch, PRN Oxycodone Bowel regimen: None Labs: As above PPX: DVT: Lovenox 30 mg BID, SCDs, mobilize Ulcer: Pantoprazole BID Vit D level if > 65 yo: 46.4 Consulted Services: SICU ID EP SOUND IR PT/OT Social work Dispo Planning: PT/OT recommend SNF. Case management following. Incidentals: None Follow Up Needs: PCP Staff Trauma Surgeon: Dr. Blanc SIGNATURE: Christie Neil APRN.CNP PATIENT NAME: Cristino Verdugo DATE: 01/11/2025 TIME: 11:49 AM Pager: see below Trauma Service Pager: For questions or concerns Mon-Fri 6a-5p please page [phone]. After 5pm and on Weekends and Holidays, please page [phone] if in ICU or [phone] if on RNF. INPATIENT ATTENDING: Dr. Phillips High-Risk Geriatric Patient Vulnerabilities: Impaired Cognition, Impaired Functional Status, and Malnutrition Diet: DIET FOOD CONSISTENCY CONTROLLED Recommendations: Cognition: Impaired Cognition (Consult Geriatrics) bCAM Score (Calc): Positive Delirium Screen Confusion Assessment Method (CAM - ICU Score): (!) Positive Geriatric Consult (Age over 85 or impaired cognition):Consult to [employer] Palliative Care/Hospice: Consult not required Rehab/Therapy: PT/OT Recommendations: PT: Recommended Discharge Disposition: Subacute/SNF OT: Recommended Discharge Disposition: Subacute/SNF Swallow: Swallow Screening Result - Step 2: PASSED Swallow Screen - Patient Able To Swallow 3 Ounce Cup of Water Without Exhibiting Signs Of Aspiration Speech Recommendations: Speech: Recommended Discharge Disposition: Continued Skilled Speech Therapy Speech Diet: Diet Recommendations: Soft and Bite-Sized IDDSI Level 6, Thin Liquids IDDSI Level 0 Nutrition: Consult to Nutrition Therapy Nutrition Recommendations: MST: Total MST Score (Calculated): 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 diet (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) Supplements: [employer] [place] 1.4, [employer] 1.0 Refer to: Speech/Language (eval to ensure diet appropriate for pt give confusion.) Vitamins and Minerals: Multivitamin with minerals Medications: Appetite stimulants Discharge Recommendations: Diet, Oral Supplements Diet: 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 Oral Supplements: high mike/protein supplement/snack of choice 2-3x/day between meals Pharmacy: Consult not needed Social Work: NA Anticipated Discharge Disposition: Fdc Facility CASE MANAGEM Observed: 01/11/2025 10:09 AM Status: COMPLETED Source: [facility] HNO ID: [id number] Author: SHAVONNE MEIER RN Service: Care Management Author Type: Registered Nurse Type: Care Mgt Progress Note Filed: 01/11/2025 16:23 Note Text: CARE MANAGEMENT PROGRESS NOTE SERVICE DATE: 01/11/2025 SERVICE TIME: 10:09AM LOS: 16 days Plan is [facility]. Tasked [facility] to start auth. 7000 complete. Will need managed transport. Folder complete. CM to follow for transitional needs SIGNATURE: Shavonne Meier RN PATIENT NAME: Cristino Verdugo DATE: January 11, 2025 TIME: 4:21 PM THERAPY NT Observed: 01/11/2025 9:58 AM Status: COMPLETED Source: [facility] HNO ID: [id number] Author: REGINE LONDON, OTR/L Service: Occupational Therapy Author Type: Occupational Therapist Type: Therapy (PT/OT/Speech/Resp) Filed: 01/11/2025 09:58 Note Text: Occupational Therapy Treatment Summary SERVICE DATE: 01/11/2025 SERVICE TIME: 939 to 949 ROOM: [id number] OT 6 Clicks Score: 15 DISCHARGE RECOMMENDATIONS Subacute/SNF Recommended Discharge Disposition Comments: patient not at functional baseline. Recommended Discharge Disposition Due to: ADL impairment, Patient requires daily (5x/week) skilled therapy at next level of care., Cognitive deficits new/worsened ASSESSMENT Response to Therapy Interventions: Requires Additional Time to Complete Activities, Requires Encouragement to Complete Activities, Slow Progression with ADLs/IADLs, Slow Progression with Functional Activities/Skills Pt reports just wanting to watch TV today. Requires increased encouragement to participate.Provided optimal room set up to promote increased alertness. Educated on importance of maintaining night/day environmental cues such as lighting, being OOB during the day, developing and maintaining daily routine. Provided patient with single step commands and increased processing time throughout session to improve independence with initiation and execution of tasks.; pt agreeable to bed level only. No goals yet met, will continue to progress as able. PRECAUTIONS Fall Risk, Bed/Chair Alarm CURRENT HOSPITAL COURSE Patient had a fall was transferred from [place] [address] admitted to the ICU has rib fractures on the left side hemopneumothorax emphysema chest tube.INFORMATION SECURITY on 12/31/24 for suspected SVT with HR in 180s. Increase in delirium. Pt on regular nursing floor now. Relevant Past Medical History: etoh abuse, fibro HOME LIVING Patient Lives With: Family (son) Assistance Available: Other: See Comment Comments: 2 Equipment Owned: Walker- Wheeled PRIOR FUNCTIONAL LEVEL Within Functional Limits indep at home no AD lives with son SUBJECTIVE awake, requires increased encouragement to participate COGNITION Orientation Deficits: Not oriented to Time, Not oriented to Situation, Confused Responsiveness: Awake, Alert Follows Commands: 2-step Commands, Cueing Needed Cueing to Follow Commands: Moderate Attention Deficits: Distractible, Divided Executive Function Deficits: Sequencing, Insight to Deficits, Problem Solving, Safety Awareness Confusion Assessment Method (CAM - ICU Score): (!) Positive (01/04/25) 4AT Score: (!) 8 (01/04/25) Delirium Positive/Negative: Positive (01/04/25) THERAPY DIAGNOSIS Reduced mobility-other, Decreased activities of daily living (ADL), Muscle Weakness (generalized), Unsteadiness on feet, General symptoms and signs-other, Signs and Symptoms Involving Cognitive Functions and Awareness TREATMENT INTERVENTIONS Self Intermediate Management (89475) Timed Code Treatment (minutes): 10 Skilled Treatment Time (minutes): 10 Self Intermediate Management (84398) Treatment Minutes: 10 $ Self Intermediate Management (54193) Billed Units: 1 unit TRAINING AND EDUCATION PROVIDED Role of Occupational Therapy, Delirium Reduction Techniques, Cognitive Skills, Cognitive Stimulation Activities, Command Following, Activity Adaptation/Compensatory Strategies THERAPEUTIC SKILLS USED Activity Dosing, Cues for Sequencing/Proper Technique for Activity, Physical Assist, Therapeutic Use of Self, Movement Facilitation FUNCTIONAL STATUS Activities of Daily Living Assist Level Additional Information Feeding Set Up Grooming Contact Guard Assistance, Additional Information all activities performed at bed level this date. pt declines oob Bathing Upper Body Minimal Assistance Bathing Lower Body Maximal Assistance Dressing Upper Body Minimal Assistance Dressing Lower Body Maximal Assistance Toileting Moderate Assistance Mobility Assist Level Additional Information Bed Mobility Supine To Sit: Moderate Assistance, Additional Information Sit to Stand Minimal Assistance Stand to Sit Minimal Assistance Bed to Chair Minimal Assistance Bed To Chair Transfer Type: Stepping Bed To Chair Transfer Equipment: (moves before walker set up; requires handheld assist to chair) Toilet/Commode Minimal Assistance Shower Functional Mobility Minimal Assistance, Additional Information Functional Mobility Device: Wheeled Walker GOALS Grooming with: Set Up Upper Body Bathing with: Stand By Assistance Upper Body Dressing with: Stand By Assistance Lower Body Bathing with: Contact Guard Assistance Lower Body Dressing with: Contact Guard Assistance Toilet Hygiene with: Supervision Chair Transfer with: Supervision Toilet Transfer with: Supervision Tolerate (minutes of functional activity): 30 Functional Activity with: Supervision Demonstrate Competence with Education with: Supervision (safety, fall prevention) Increased Awareness of Cognitive Impairments as Related to ADL's/IADL's: Verbalized, Demonstrated Rehab Potential: Good Progress Toward Goals: Progressing slower than expected ACUTE CARE TREATMENT PLAN OT Frequency: 2 Times Per Week Treatment Interventions: Education, Self Care/Home Management, Energy Conservation Training, Strengthening, Functional Mobility Training, Balance Training, Cognitive Training Plan for Next Visit: Bathing Training, Dressing Training SIGNATURE: SHAUN Welch/Bennett PATIENT NAME: Cristino Verdugo DATE: January 11, 2025 TIME: 9:58 AM THERAPY NT Observed: 01/11/2025 9:31 AM Status: COMPLETED Source: [facility] HNO ID: [id number] Author: GT HUGHES, PT Service: Physical Therapy Author Type: Physical Therapist Type: Therapy (PT/OT/Speech/Resp) Filed: 01/11/2025 09:35 Note Text: Physical Therapy Treatment Summary SERVICE DATE: 01/11/2025 SERVICE TIME: 900 ROOM: [id number] PT 6 Clicks Score: 18 DISCHARGE RECOMMENDATIONS Subacute/SNF Recommended Discharge Disposition Comments: Patient continues to be at high fall risk. Recommend SNF setting PT at d/c ASSESSMENT Response to Therapy Interventions: Good Participation in Activities, Improved Tolerance for Activity Patient seen for physical therapy session and out of the ICU. She is able to get up and walk with a walker and required continual assistance and direction to stay within the walker frame and use the walker properly as well as to avoid obstacles. PRECAUTIONS Fall Risk, Bed/Chair Alarm CURRENT HOSPITAL COURSE Patient had a fall was transferred from [place] [address] admitted to the ICU has rib fractures on the left side hemopneumothorax emphysema chest tube.INFORMATION SECURITY on 12/31/24 for suspected SVT with HR in 180s. Increase in delirium. Pt on regular nursing floor now. Relevant Past Medical History: etoh abuse, fibro HOME LIVING Patient Lives With: Family (son) Assistance Available: Other: See Comment Comments: 2 Equipment Owned: Walker- Wheeled PRIOR FUNCTIONAL LEVEL Within Functional Limits indep at home no AD lives with son SUBJECTIVE willing to participate. Pleasantly confused THERAPY DIAGNOSIS Reduced mobility-other, Muscle Weakness (generalized), Unsteadiness on feet TREATMENT INTERVENTIONS Therapeutic Exercise (56508), Therapeutic Activity (90565), Gait Training (78635) Timed Code Treatment (minutes): 24 Skilled Treatment Time (minutes): 24 Therapeutic Exercise (54469) Treatment Minutes: 12 $ Therapeutic Exercise (78174) Billed Units: 1 unit Patient completed seated open kinetic chain active range of motion including marching, long arc quads, hamstring curls, heel raises, and hip abduction 2x10 without added resistance to increase strength required for safe performance of all transfers/ambulation. Therapeutic Activity (78969) Treatment Minutes: 6 $ Therapeutic Activity (46853) Billed Units: 0 units Directions on safety and waiting for therapist prior to attempt to change positions. Patient needed cues on this. Impulsive at times. Patient reporting continued pain in the L thigh and in ribs with position changes Gait Training (94988) Treatment Minutes: 6 $ Gait Training (95929) Billed Units: 1 unit Instruction in sit to stand technique with proper hand placement and body positioning at edge of bed/chair pushing from bed. Instruction in stand to sit technique with LE's touching chair/bed and reaching back for surface and cued to turn around fully before starting to sit in the chair. Instruction in use of equipment, cues for sequence and pattern with the walker. Cued to maintain appropriate approximation to walker and keep head up for proper postural alignment. Working also without the device for balance practice. Patient needed CASKET ASSEMBLER with this. Unsteady TRAINING AND EDUCATION PROVIDED Assistive Device Use, Bed Mobility, Benefits of In-Hospital Mobility, Exercise Program, Falls Prevention, Gait Pattern, Reduction of Deviations, Positioning, Pre-gait Activities, Role of Physical Therapy, Sitting Balance, Standing Balance, Transfers THERAPEUTIC SKILLS USED Activity Dosing, Cuing Tactile, Cuing Verbal, Cuing Visual, Physical Assist, Muscle Activation Facilitation, Movement Facilitation FUNCTIONAL STATUS mobility performed during session in bold, other mobility completed during prior session and may no longer be correct or appropriate to complete. Bed Mobility Supine To Sit: Moderate Assistance, Additional Information Sit to Supine: Minimal Assistance assist to bring LEs back into bed Scooting: Contact Guard Assistance Transfers Sit To Stand: Contact Guard Assistance Stand To Sit: Contact Guard Assistance Pt needs cues to wait for instructions to come to stand. Pt impulsive at times Bed to Chair Gait Contact Guard Assistance Gait Device: Wheeled Walker, Hand Held Assist Gait Distance (feet): 40x2 Stairs GOALS Able to Perform HEP with: Independent Transfer Supine to/from Sit with: Independent Transfer Sit to/from Stand with: Independent Ambulate with: Independent Distance: 50 Device: Wheeled Walker Rehab Potential: Fair Progress Toward Goals: Progressing as expected ACUTE CARE TREATMENT PLAN PT Frequency: 3 Times Per Week (1-3) Treatment Interventions: Education, Strengthening, Functional Mobility Training, Balance Training SIGNATURE: Gt Hughes PT PATIENT NAME: Cristino Verdugo DATE: January 11, 2025 TIME: 9:31 AM CBC PNL BLD AUTO Collected: 01/11/2025 7:45 AM Statu s: F Source: [facility] Order Comment: Specimen Type : BLOOD SPECIMEN Ordering Facility: [facility] Address: [address] [place] [address] TYPE CODE TESTS RESULT OUT OF RANGE REFERENCE UNITS LAB 6690-2(LOINC) WBC # Bld Auto 9.46 3.70-11.00 k/uL LAB 789-8(LOINC) RBC # Bld Auto 2.39 Low 3.90-5.20 m/ uL LAB 718-7(LOINC) Hgb Bld-mCnc 8.4 Low 11.5-15.5 g/dL LAB 4544-3(LOINC) Hct VFr Bld Auto 27.2 Low 36.0-46.0 % LAB 787-2(LOINC) MCV RBC Auto 113.8 High 80.0-100.0 fL LAB 785-6(LOINC) MCH RBC Qn Auto 35.1 High 26.0-34.0 pg LAB 786-4(LOINC) MCHC RBC Auto-mCnc 30.9 30.5-36.0 g/dL LAB 99996-6([facility]) RDW RBC-Rto 14.2 11.5-15.0 % LAB 777-3(INC) Platelet # Bld Auto 384 150-400 k/uL LAB 36831-4([facility]) PMV Bld Auto 9.9 9.0-12.7 fL LAB 771-6(LOINC) nRBC # Bld Auto <0.01 <0.01 k/uL Performed By: #### 81875-3 # ### [facility] CLIA [id number] [address] [place] [address] [place] BAS METAB 1999 PNL SERPL Collected: 7:45 AM Status: F Source: [facility] Order Comment: Specimen Type : BLOOD SPECIMEN Ordering Facility: [facility] Address: [address] [place] [address] TYPE CODE TESTS RESULT OUT OF RANGE REFERENCE UNITS LAB 2345-7(INC) Glucose SerPl-mCnc 96 74-99 mg/dL Result Comment: The [place] Diabetes Association (ADA) provides guidance for cutoff values for fasting glucose and random glucose. The ADA defines fasting as no caloric intake for at least 8 hours. Fasting plasma glucose results between 100 to 125 mg/dL indicate increased risk for diabetes (prediabetes). Fasting plasma glucose results greater than or equal to 126 mg/dL meet the criteria for diagnosis of diabetes. In the absence of unequivocal hyperglycemia, results should be confirmed by repeat testing. In a patient with classic symptoms of hyperglycemia or hyperglycemic crisis, random plasma glucose results greater than or equal to 200 mg/dL meet the criteria for diagnosis of diabetes. Reference: Standards of Medical Care in Diabetes 2016, [place] Diabetes Association. Diabetes Care. 2016.39(Suppl 1). LAB 3094-0(LOINC) BUN SerPl-mCnc 7 7-21 mg/dL LAB 2160-0(LOINC) Creat SerPl-mCnc 0.67 0.58-0.96 mg/dL LAB 2951-2(LOINC) Sodium SerPl-sCnc 135 Low 136-144 mmol/L LAB 2823-3(LOINC) Potassium SerPl-sCnc 3.9 3.7-5.1 mmol/L LAB 2075-0(LOINC) Chloride SerPl-sCnc 103 98-107 mmol/L LAB 2028-9(LOINC) CO2 SerPl-sCnc 18 Low 22-30 mmol/L LAB 1863-0(LOINC) Anion Gap4 SerPl-sCnc 14 8-15 mmol/L LAB 53782-7(LOINC) Calcium SerPl-mCnc 8.5 8.5-10.2 mg/dL LAB 02513-7(LOINC) eGFRcr SerPlBld CKD-EPI 2020 90 >=60 mL/min/1. 73m??? Result Comment: Estimated Gl omerular Filtration Rate (eGFR) is calculated using the 2020 CKD-EPI creatinine equation. This equation utilizes serum creatinine, sex, and age as parameters. The creatinine assay has traceable calibration to isotope dilution-mass spectrometry. Refer to KDIGO guidelines for clinical interpretation. In patients with unstable renal function, e.g. those with acute kidney injury, the eGFR may not accurately reflect actual GFR. Performed By: #### [id number] # ### [facility] CLIA [id number] [address] [place] [address] [place] CONSULT PROG Observed: 01/10/2025 2:59 PM Status: COMPLETED Source: [facility] HNO ID: [id number] Author: MARLYN SAHA MD Service: Hospital Medicine Author Type: Physician Type: Consult Progress Note Filed: 01/10/2025 15:04 Note Text: DEPARTMENT OF HOSPITAL MEDICINE PROGRESS NOTE SERVICE DATE: 01/10/2025 SERVICE TIME: 2:59 PM Hospital Medicine/Primary Attending: Marlyn Saha MD NIGHT AND WEEKEND COVERAGE: After 7pm please page [phone] MEDICATIONS: Current Facility-Administered Medications Medication Dose Route Frequency NaCl 0.9% iv flush bag 20 mL INTRAVENOUS PRN ondansetron 4 mg tab(s) (ZOFRAN) 4 mg ORAL q 6 H PRN Or ondansetron (PF) 4 mg injection (ZOFRAN) 4 mg INTRAVENOUS q 6 H PRN folic acid 1 mg tab(s) 1 mg ORAL DAILY lidocaine 4 % 2 patch (SALONPAS) 2 patch TRANSDERMAL DAILY And lidocaine patch - REMOVE OTHER AT BEDTIME And lidocaine - VERIFY PATCH OTHER q 8 H ipratropium-albuterol 3 mL nebulizer solution (DUONEB) 3 mL INHALATION q 6 H PRN cetirizine 10 mg tab(s) (ZYRTEC) 10 mg ORAL DAILY rosuvastatin 10 mg tab(s) (CRESTOR) 10 mg ORAL AT BEDTIME metoprolol 5 mg injection (LOPRESSOR) 5 mg INTRAVENOUS q 6 H PRN pantoprazole 40 mg injection (PROTONIX) 40 mg INTRAVENOUS BID AC (0600/1600) [Order Held by LIP] enoxaparin 30 mg injection (LOVENOX) 30 mg SUBCUTANEOUS q 12 HR therapeutic multivitamin-minerals tablet (THERA-M PLUS) 1 tablet ORAL DAILY melatonin 6 mg tab(s) 6 mg ORAL DAILY (8 PM) vancomycin 125 mg oral liquid (VANCOCIN) 125 mg ORAL QID iv contrast (radiology procedure) INTRAVENOUS DIRECTED PRN acetaminophen 1,000 mg tab(s) (TYLENOL) 1,000 mg ORAL TID budesonide, enteric coated 9 mg cap(s) (ENTOCORT EC) 9 mg ORAL DAILY metoprolol tartrate (short acting) 25 mg tab(s) (LOPRESSOR) 25 mg ORAL q 8 H thiamine 200 mg tab(s) (VITAMIN B1) 200 mg ORAL/FEEDING TUBE TID oxyCODONE IR 2.5-5 mg tab(s) (ROXICODONE) 2.5-5 mg ORAL q 6 H PRN DATA: Diagnostic tests reviewed for today's visit: Lab data: CBC: Recent Labs 01/10/25 0235 01/09/25 0154 01/08/25 0359 01/07/25 0433 01/06/25 0638 01/05/25 0512 01/04/25 0926 01/04/25 0125 WBC 9.85 10.32 9.23 11.13* 8.42 9.83 9.18 8.02 HB 8.9* 8.5* 8.4* 9.5* 8.0* 8.5* 8.1* 7.5* HCT 27.2* 25.7* 25.1* 27.9* 23.7* 25.2* 24.8* 23.2* PLT 531* 445* 414* 405* 347 366 263 258 MCV 107.1* 105.3* 105.0* 104.9* 104.9* 103.7* 108.3* 106.9* RDWCV 14.0 13.6 13.8 13.4 13.4 13.1 13.4 13.2 COAG: No results for input(s): "APTT", "INR" in the last 168 hours. BMP: Recent Labs 01/10/25 02301/09/25 0154 01/08/25 0359 01/07/25 0433 01/06/25 1546 01/06/25 0638 01/05/25 0512 01/04/25 0125 GLUC 72* 84 89 83 93 85 79 76 NA 134* 133* 132* 132* 134* 134* 133* 133* K 4.5 4.7 3.1* 4.2 2.9* 2.7* 3.4* 3.5* CHLOR 103 104 100 100 101 103 101 102 CO2 19* 19* 21* 17* 21* 18* 19* 21* ANION 12 10 11 15 12 13 13 10 BUN 6* 5* 6* 5* 5* 6* 7 10 CREAT 0.60 0.55* 0.59 0.50* 0.61 0.63 0.74 0.86 CHEM: Recent Labs 01/10/25 0235 01/09/25 0154 01/08/25 0359 01/07/25 0433 01/06/25 1546 01/06/25 0638 01/05/25 0512 01/04/25 0125 CA 9.2 8.7 8.5 8.5 7.8* 7.7* 8.2* 8.0* MG -- -- 2.0 -- -- -- -- -- HEPATIC: No results for input(s): "ALKPHOS", "ALT", "AST", "TBILI", "LIPASE" in the last 168 hours. URINALYSIS:No results for input(s): "PH", "SPGR", "UGLUC", "UBILI", "UKET", "UHB", "UPROT", "UROBIL", "UWBC", "SSA" in the last 168 hours. Invalid input(s): "NITR" CARDIAC: No results for input(s): "PBNP" in the last 168 hours. Problem List Pneumothorax (POA: Yes) Fall (POA: Yes) Closed fracture of multiple ribs of left side (POA: Yes) Hemopneumothorax on left (POA: Yes) Alcohol use (POA: Yes) Type 2 diabetes (HCC) (POA: Yes) History of stroke (POA: Yes) History of cholecystectomy (POA: Yes) IBS (irritable bowel syndrome) (POA: Yes) Posttraumatic respiratory insufficiency (POA: Yes) At risk for delirium (POA: Yes) Acute cystitis without hematuria (POA: Clinically Undetermined) Acute urinary retention (POA: Clinically Undetermined) Hypokalemia (POA: No) Hyponatremia (POA: No) SVT (supraventricular tachycardia) (HCC) (POA: Status not on file) Hypophosphataemia (POA: Status not on file) Malnutrition of mild degree (HCC) (POA: Status not on file) Renal cyst (POA: Status not on file) Delirium (POA: Yes) Constipation (POA: Status not on file) DNR (do not resuscitate) discussion (POA: Status not on file) Frailty syndrome in geriatric patient (POA: Status not on file) Goals of care, counseling/discussion (POA: Status not on file) Neurodegenerative disorder (POA: Status not on file) Pain (POA: Status not on file) C. difficile colitis (POA: Status not on file) Psoas muscle abscess (HCC) (POA: Status not on file) PHYSICAL EXAM: BP 115/58 Pulse 98 Temp (Src) 97.1 (Temporal) Resp 18 Ht 5' 1.496" (1.56m) Wt 130 lb 1.1 oz (59.0kg) SpO2 96% BMI 24.18 kg/(m2). O2 Therapy: Room Air Follow up : Pt seen and examined. No acute overnight events. Plan for IR left psoas aspiration today GENERAL: Alert, no distress, cooperative SKIN: Skin color, texture, turgor normal. No rashes or lesions. HEAD/SINUSES: No significant findings OROPHARYNX: Lips, mucosa, and tongue normal. Teeth and gums normal. Oropharynx normal. NECK: No jugulovenous distention, No carotid bruits, Carotid pulse normal contour, Supple BACK: Back symmetric, Normal curvature, ROM normal, No CVAT. LUNGS: Lungs clear to auscultation, Good diaphragmatic excursion CARDIAC: Normal S1 and S2; no rubs, murmurs, or gallops ABDOMEN: Abdomen soft, non-tender, BS normal, No masses or organomegaly EXTREMITIES: Minimal left thigh tenderness ASSESSMENT/PLAN: 1. Multiple left-sided rib fractures complicated by hemopneumothorax and subcutaneous emphysema. Patient status post chest tube placement. 2. Anemia. Likely iron deficiency. Iron level noted to be 37. Hemoglobin stable at 8.5. Recommend for patient to be started on p.o. iron on discharge 3. Alcohol use disorder with alcohol withdrawal and delirium. Improved and resolved at this time. Recommend consulting addiction medicine. 4. Paroxysmal supraventricular tachycardia. Most recent EKG showing sinus tachycardia. Currently on metoprolol and was given IV fluids. Primary team has consulted EP. EP did evaluate the patient and recommended continuing metoprolol. They have signed off. 5. Hypokalemia. Most likely related to alcohol use disorder. Will replete orally with 40 mEq 3 times daily x 3 doses 6. Concern for psoas abscess - Per primary team, IR aspiration has been ordered. ID following. Patient recommended to be followed off antibiotics for the abscess at this time. 7. C. difficile - On oral vancomycin for 10 days 8. Acute urinary retention - Urology consulted by primary team and patient recommended for void trial. Per their note, void trial on 01/09. They recommend outpatient follow-up for urinary retention and renal cyst Malnutrition Diagnosis supported by Registered Dietitian:Mild Protein-Calorie Malnutrition Based on: Insufficient Energy Intake Assessment: I have reviewed the result of the malnutrition assessment and plan and agree Plan: Diet, Supplements, Referral, Vitamin/Mineral Supplements, Medications VTE Prophylaxis: As per primary team Disposition: To be determined Plan of care discussed with: Provider, RN, Patient Medication and Non-Pharmacologic VTE Prophylaxis/Anticoagulants Anticoagulant AND Antiplatelet Medications (From admission, onward) Start Dose Route Frequency Last Action Ordered Stop 01/03/25 1000 [Order Held by [facility]] enoxaparin 30 mg injection (LOVENOX) (enoxaparin injection (LOVENOX)) (On hold since today at 0738 for 1 dose; held by Christie Neil APRN.CNPHold Reason: Hold for Procedure/Surgery) On hold since today at 0738 for 1 dose Hold reason: Hold for Procedure/Surgery 30 mg SQ EVERY 12 HOURS Given, 01/09 205001/03/25 0948 -- 12/26/24 1434 pneumatic compression sleeve(s) (fl,oh) 12/26/24 1434 activity - mobilize patient (in,oh) Portions of this note including HPI, ROS, impression/plan, and examination may have been copied forward from 01/09/2025 to 01/10/2025 as to provide important historical information essential in contributing to medical decision making. Documentation has been reviewed and edited as necessary to support clinical decision making for today's visit and to reflect my own independent evaluation of this patient. SIGNATURE: Marlyn Saha MD PATIENT NAME: Cristino Verdugo DATE: January 10, 2025 TIME: 2:59 PM PAGER/CONTACT #: Team color pager Disclaimer: Portions of this note may have been generated using [employer] voice recognition software. Reasonable efforts were made to correct any dictation errors that resulted due to the programming of this software but some may still be present. Please note, the time of this note does not reflect the time I saw this patient today, but the time of this documentation. PLAN OF CARE Observed: 01/10/2025 2:23 PM Status: COMPLETED Source: [facility] HNO ID: [id number] Author: ESTEFANIA August,.HISTORIC PRESERVATIONIST Service: Urology Author Type: Nurse Practitioner Type: Plan of Care Filed: 01/10/2025 14:25 Note Text: Urology Plan of Care Note Pt is 79 year old female with AUR, failed VT. Yesterday, 01/09, pt underwent successful void trial, pvr 25ml. 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 Blood seen. Sent for culture C. Diff- per patient report her diarrhea is improving. Also notes she has history of chronic diarrhea. Prior UTI History of GERD, HTN, IBS Plan Continue oral vancomycin x 10 days Subjective Feeling ok. Still with pain in left thigh and groin. No fevers or chills. Diarrhea is improving. Objective Data: Recent Labs 01/10/25 0235 01/09/25 0154 01/08/25 0359 WBC 9.85 10.32 9.23 HB 8.9* 8.5* 8.4* HCT 27.2* 25.7* 25.1* PLT 531* 445* 414* NA 134* 133* 132* K 4.5 4.7 3.1* CHLOR 103 104 100 CO2 19* 19* 21* CREAT 0.60 0.55* 0.59 BUN 6* 5* 6* GLUC 72* 84 89 MG -- -- 2.0 CA 9.2 8.7 8.5 Micro: Cultures pending Imaging: No new imaging Vitals: BP 115/58 Pulse 98 Temp (Src) 97.1 (Temporal) Resp 18 Ht 5' 1.496" (1.56m) Wt 130 lb 1.1 oz (59.0kg) SpO2 96% BMI 24.18 kg/(m2). O2 Therapy: Room Air Exam: Lying in bed. Looks well. No distress. Oropharynx clear and moist Abdomen soft. Tender in left inguinal region and left iliac crest. Mild pain with flexion against resistance left hip. Active Antimicrobials (From admission, onward) Start Stop 01/06/25 0900 [Transfer Hold] vancomycin 125 mg oral liquid (VANCOCIN) 125 mg, ORAL, 4 TIMES DAILY (Medication wasn't reconciled on transfer) 01/13/25 0859 Current Facility-Administered Medications: [Transfer Hold] oxyCODONE IR 2.5-5 mg tab(s) (ROXICODONE) [] thiamine 200 mg injection FOLLOWED BY [Transfer Hold] thiamine 200 mg tab(s) (VITAMIN B1) [COMPLETED] CT ABD/PEL W IVCON AND [COMPLETED] CT CHEST W IVCON AND [Transfer Hold] iv contrast (radiology procedure) AND [] enteric contrast (radiology procedure) [Transfer Hold] acetaminophen 1,000 mg tab(s) (TYLENOL) [Transfer Hold] budesonide, enteric coated 9 mg cap(s) (ENTOCORT EC) [Transfer Hold] metoprolol tartrate (short acting) 25 mg tab(s) (LOPRESSOR) [Transfer Hold] vancomycin 125 mg oral liquid (VANCOCIN) [Order Held by LIP] enoxaparin 30 mg injection (LOVENOX) [Transfer Hold] therapeutic multivitamin-minerals tablet (THERA-M PLUS) [Transfer Hold] melatonin 6 mg tab(s) [Transfer Hold] pantoprazole 40 mg injection (PROTONIX) [Transfer Hold] metoprolol 5 mg injection (LOPRESSOR) [Transfer Hold] folic acid 1 mg tab(s) [Transfer Hold] lidocaine 4 % 2 patch (SALONPAS) AND [Transfer Hold] lidocaine patch - REMOVE AND [Transfer Hold] lidocaine - VERIFY PATCH [Transfer Hold] ipratropium-albuterol 3 mL nebulizer solution (DUONEB) [Transfer Hold] cetirizine 10 mg tab(s) (ZYRTEC) [Transfer Hold] rosuvastatin 10 mg tab(s) (CRESTOR) [Transfer Hold] NaCl 0.9% iv flush bag [Transfer Hold] ondansetron 4 mg tab(s) (ZOFRAN) OR [Transfer Hold] ondansetron (PF) 4 mg injection (ZOFRAN) I have performed the following services under complex antimicrobial therapy counseling and treatment: Engaged in complex medical decision-making associated with antimicrobial prescribing. SIGNATURE: Brenda Hopkins III, MD PATIENT NAME: Cristino Verdugo DATE: January 10, 2025 TIME: 1:54 PM PAGER #: [phone] [facility] CELL: [phone] BRIEF OP NOT Observed: 01/10/2025 1:18 PM Status: COMPLETED Source: [facility] HNO ID: [id number] Author: YUDY GR MD Service: Interventional Radiology Author Type: Physician Type: Brief Op Note Filed: 01/10/2025 13:20 Note Text: BRIEF OPERATIVE / PROCEDURE NOTE LOG ID: [id number] SURGERY/PROCEDURE DATE: 01/10/2025 INCISION/PROCEDURE START TIME: INCISION CLOSE/PROCEDURE END TIME: SURGEON(S)/PROCEDURALIST(S) AND TAX MAP TECHNICIAN(S): Surgeons and Role: * Yudy Gr MD - Primary No Additional Staff Preoperative Concerns /Risks: None SURGERY/PROCEDURE(S): Image guided left psoas indeterminate collection aspiration. ANESTHESIA: Local FINDINGS: -17 G trochar used to target a heterogenous area in left psoas muscle. No obvious liquefied component on USG. -2 ml of hemorrhagic sample aspirated and sent for cultures. ESTIMATED BLOOD LOSS: <2 mls SPECIMENS: As above Intraoperative Complication/Events: None CLOSURE TECHNIQUE: Non-primary PRE-OP/PRE-PROCEDURE DIAGNOSIS: Indeterminate left psoas collection. POST-OP/POST-PROCEDURE DIAGNOSIS: Same as Preop SIGNATURE: Yudy Gr MD PATIENT NAME: Cristino Verdugo DATE: January 10, 2025 TIME: 1:18 PM US ASPIRATION SUBCUT ABSCESS Observed: 0 01/10/2025 1:17 PM Status: F Source: [facility] * * *Final Report* * * DATE OF EXAM: Jan 10 2025 1:17PM [facility] 1074 - US ASPIRATION SUBCUT ABSCESS / PROCEDURE REASON: Abscess * * * * Physician Interpretation * * * * PROCEDURE PERFORMED: ULTRASOUND GUIDED ASPIRATION PRE-PROCEDURE DIAGNOSIS: Indeterminate left psoas collection. POST-PROCEDURE DIAGNOSIS: Same as pre-procedure diagnosis INDICATION FOR PROCEDURE: Indeterminate left psoas collection RELEVANT PRIOR STUDIES: CT 01/07/2025 STAFF RADIOLOGIST: Dr. Gr TAX MAP TECHNICIAN(S): None CONSENT: The risks, benefits, treatment options, potential complications and personnel involved were discussed with the patient. All questions were answered and consent was obtained. The patient indicated willingness to proceed. The staff physician personally verified consent. TIME OUT: A time out was performed immediately prior to procedure start with the nursing, anesthesia and interventional team, correctly identifying the patient name, date of , procedure, anatomy (including marking of site and side), patient position, procedure consent form, relevant diagnostic and radiology test results, antibiotic administration, safety precautions, and procedure-specific equipment needs. RESULT: PROCEDURE: After performing the time out, the left psoas heterogeneous hypoechoic area likely hematoma was localized with ultrasound, images were obtained and archived. The left lower quadrant was prepped and draped in the usual sterile fashion. Under ultrasound guidance, an 17 gauge trochar needle was advanced into the collection. A 2 mL hemorrhagic sample was aspirated. The procedure was performed by the: Attending radiologist, without an legal support assistant The attending radiologist performed the following procedural activities: Entire procedure ANESTHESIA/SEDATION: Conscious sedation: None Local anesthesia: Lidocaine (1%): 8 cc Vital signs: Monitored by the nurse PATIENT MONITORING: The staff physician personally supervised and directed an independent trained observer who assisted in monitoring the patient?s level of consciousness and physiological status throughout the procedure. SIGNIFICANT COMPLICATIONS: None MINOR COMPLICATIONS: None SIGN-OUT DISCUSSION: Completed ESTIMATED BLOOD LOSS: None SPECIMENS: 2 cc hemorrhagic sample aspirated and samples sent to microbiology IMPRESSION: Ultrasound guided aspiration from a heterogenous left psoas muscle collection likely hematoma, as described. Cloud Subject Matter Expert: PSCB Transcribe Date/Time: Jan 10 2025 5:13P Dictated by : YUDY GR MD This examination was interpreted and the report reviewed and electronically signed by: YUDY GR MD on Jan 10 2025 5:17PM EST [id number] BACTERIA SPEC ANAEROBE CULT Observed: 01/10/2025 1:16 PM Status: F Source: [facility] CULTURE, ANAEROBE: Negative for anaerobes. Performed By: #### [id number] ### # [facility] CLIA [id number] [address] BACTERIA WND CULT Observed: 01/10/2025 1:16 PM Status: F Source: [facility] CULTURE, WOUND: No growth 3 days GRAM STAIN: No organisms seen Rare Polymorphonuclear leukocytes Many Red Blood Cells Performed By: #### [id number] ## ## [facility] CLIA [id number] [address] PLAN OF CARE Observed: 01/10/2025 7:45 AM Status: COMPLETED Source: [facility] HNO ID: [id number] Author: CONNIE GRULLON MD Service: Electrophysiology Author Type: Physician Type: Plan of Care Filed: 01/10/2025 07:45 Note Text: Telemetry reviewed - After 4 pm no further runs of SVT. Has sinus tach. Ct Metoprolol 25 tid EP will sign off Reconsult if needed. Connie Grullon MD PROGRESS Observed: 01/10/2025 7:38 AM Status: COMPLETED Source: [facility] HNO ID: [id number] Author: CHRISTIE NEIL APRN.CNP Service: General Surgery Author Type: Nurse Practitioner Type: Progress Notes Filed: 01/10/2025 07:56 Note Text: Trauma Surgery Progress Note SERVICE DATE: 01/10/2025 Trauma Service Pager: For questions or concerns Mon-Fri 6a-5p please page [phone]. After 5pm and on Weekends and Holidays, please page [phone] if in ICU or [phone] if on RNF. SUBJECTIVE: No acute overnight events. Patient is awake, alert and oriented x 2, FC, BRAGA. She reports mild left chest wall pain. Respiratory status stable on RA. She denies chest pain, shortness of breath, nausea, vomiting. Plan for drainage of left psoas abscess today with IR. OBJECTIVE: Vitals: Temp (24hrs), Av.7 ?C (98 ?F), Min:36.1 ?C (97 ?F), Max:36.9 ?C (98.4 ?F) BP 139/79 Pulse 100 Temp 36.1 ?C (97 ?F) (Temporal) Resp 20 Ht 156.2 cm (5' 1.5") Wt 59 kg (130 lb 1.1 oz) SpO2 99% BMI 24.18 kg/m? O2 Therapy: Room Air IANDO: Date 01/09/25 0700 - 01/10/25 0659 01/10/25 0700 - 01/11/25 0659 Shift 1841-4898 9844-8239 0788-8533 24 Hour Total 9459-1615 3054-9308 9798-7331 24 Hour Total INTAKE PO 350 350 PO 350 350 Shift Total 350 350 OUTPUT Urine 452 1 453 Void (ml) 152 1 153 Urine Not Saved. 1 x 2 x 3 x Output ([REMOVED] Indwelling Urinary Catheter 01/02/25 0100 Villela 16 Fr 01/09/25 0912) 300 300 # of BMs Number of BMs 1 x 1 x 1 x 3 x Shift Total 452 1 453 Weight (kg) 59 59 59 59 59 59 59 59 MEDICATIONS: Current Facility-Administered Medications Medication Dose Route Frequency thiamine 200 mg tab(s) (VITAMIN B1) 200 mg ORAL/FEEDING TUBE TID iv contrast (radiology procedure) INTRAVENOUS DIRECTED PRN acetaminophen 1,000 mg tab(s) (TYLENOL) 1,000 mg ORAL TID budesonide, enteric coated 9 mg cap(s) (ENTOCORT EC) 9 mg ORAL DAILY metoprolol tartrate (short acting) 25 mg tab(s) (LOPRESSOR) 25 mg ORAL q 8 H vancomycin 125 mg oral liquid (VANCOCIN) 125 mg ORAL QID [Order Held by LIP] enoxaparin 30 mg injection (LOVENOX) 30 mg SUBCUTANEOUS q 12 HR therapeutic multivitamin-minerals tablet (THERA-M PLUS) 1 tablet ORAL DAILY melatonin 6 mg tab(s) 6 mg ORAL DAILY (8 PM) pantoprazole 40 mg injection (PROTONIX) 40 mg INTRAVENOUS BID AC (0600/1600) metoprolol 5 mg injection (LOPRESSOR) 5 mg INTRAVENOUS q 6 H PRN folic acid 1 mg tab(s) 1 mg ORAL DAILY lidocaine 4 % 2 patch (SALONPAS) 2 patch TRANSDERMAL DAILY And lidocaine patch - REMOVE OTHER AT BEDTIME And lidocaine - VERIFY PATCH OTHER q 8 H ipratropium-albuterol 3 mL nebulizer solution (DUONEB) 3 mL INHALATION q 6 H PRN cetirizine 10 mg tab(s) (ZYRTEC) 10 mg ORAL DAILY rosuvastatin 10 mg tab(s) (CRESTOR) 10 mg ORAL AT BEDTIME NaCl 0.9% iv flush bag 20 mL INTRAVENOUS PRN ondansetron 4 mg tab(s) (ZOFRAN) 4 mg ORAL q 6 H PRN Or ondansetron (PF) 4 mg injection (ZOFRAN) 4 mg INTRAVENOUS q 6 H PRN oxyCODONE IR 2.5-5 mg tab(s) (ROXICODONE) 2.5-5 mg ORAL q 4 H PRN Labs: Recent Labs 01/10/25 0235 01/09/25 0154 01/08/25 0359 NA 134* 133* 132* K 4.5 4.7 3.1* CHLOR 103 104 100 CO2 19* 19* 21* BUN 6* 5* 6* CREAT 0.60 0.55* 0.59 GLUC 72* 84 89 ANION 12 10 11 CA 9.2 8.7 8.5 MG -- -- 2.0 WBC 9.85 10.32 9.23 HB 8.9* 8.5* 8.4* HCT 27.2* 25.7* 25.1* PLT 531* 445* 414* PHYSICAL EXAM: Genl: Appears age appropriate. No acute distress. Resting comfortably. Head/Face: Normocephalic. Atraumatic. Eyes: EOMI. Sclera not icteric, not injected Resp: Lung sounds are clear bilat. No wheezes. No rales. Breathing is non-labored on RA @ 99%. Left chest wall tenderness without crepitus. CVS: RRR as above; 2+ pulses at RA, DP, PT bilat. GI: Abdomen is soft, non-tender, not distended. Bowel sounds normoactive. No peritonitis. : Villela catheter draining clear, yellow urine. MSK: Extremities without clubbing, cyanosis, edema. Normal ROM x 4. Skin: Warm and dry. Not jaundiced. Moderately left forearm edema. Ecchymosis to left upper extremity. Scattered ecchymosis to right upper extremity. Ecchymosis to left chest, hip. Neuro: AANDOx2. Strength and sensation normal. BRAGA. Psych: Drowsy, slow to respond. ASSESSMENT AND PLAN: Assessment Active Hospital Problems Diagnosis Date Noted Pneumothorax 12/26/2024 C. difficile colitis 01/08/2025 Psoas muscle abscess (HCC) 01/08/2025 Delirium 01/07/2025 Constipation 01/07/2025 DNR (do not resuscitate) discussion 01/07/2025 Frailty syndrome in geriatric patient 01/07/2025 Goals of care, counseling/discussion 01/07/2025 Neurodegenerative disorder 01/07/2025 Pain 01/07/2025 Renal cyst 01/04/2025 Malnutrition of mild degree (HCC) 01/03/2025 At risk for delirium 12/31/2024 Acute cystitis without hematuria 12/31/2024 Acute urinary retention 12/31/2024 Hypokalemia 12/31/2024 Hyponatremia 12/31/2024 SVT (supraventricular tachycardia) ([facility]) 12/31/2024 Hypophosphataemia 12/31/2024 Posttraumatic respiratory insufficiency 12/27/2024 Fall 12/26/2024 Closed fracture of multiple ribs of left side 12/26/2024 Hemopneumothorax on left 12/26/2024 Alcohol use 12/26/2024 Type 2 diabetes (HCC) 12/26/2024 Chronic IBS (irritable bowel syndrome) 12/26/2024 Chronic History of stroke 2013 Chronic History of cholecystectomy 2008 Chronic Assessment: 79-year old female s/p mechanical fall on 12/26/24 (Trauma transfer from [place]) Imaging performed: CT HNCAP ([place] [facility], 12/26) CXR, XR left elbow/forearm (12/26) CXR x 2 (12/27) CXR x 3, CTA chest, CTAP (12/28) CXR (12/29) CXR (12/30) CXR (12/31) CT brain, CXR x 2, KUB (01/01) CXR (01/02) CXR (01/03) CXR (01/04) DVT US BUE (01/05) CT EMMANUEL (01/07) XR left femur (01/08) Traumatic Injuries: Left 6-9 rib fractures with associated hemopneumothorax and subcutaneous emphysema Left elbow contusion with small skin tear Operations/Procedures: 1. 12/27/2024 - Left chest tube inserted 2. 12/28/2024 - Left subclavian CVC (removed 12/30) Care Plan: Left rib fractures with hemopneumothorax S/p left chest tube insertion 12/27/24 CT to water seal 12/28, removed 01/01 CXR (01/04): Persistent left lung base focal opacity Respiratory status stable on RA Aggressive pulmonary hygiene Multimodal pain control Mobilize as tolerated ETOH abuse, delirium Patient reports daily wine consumption 3-4 glasses Received Phenobarbital and Ativan at [facility] and during transfer Phenobarb taper discontinued 2/2 sedation CIWA protocol Continue Thiamine, Folate Social work consult Hold Seroquel due to drowsiness Continue Melatonin at Geriatrics consulted, appreciate recommendations Acute urinary retention Villela inserted 12/28 due to high volume retention Villela catheter removed 12/31 and void trial initiated Required straight catheterization x 1 due to continued retention on 01/01 Villela catheter reinserted 01/02 due to high volume retention Urology consulted, appreciate recommendations Per urology: Consider formal urology driven void trial prior to discharge if milestones of mentation at baseline, improvement in ambulation, and having regular bowel movements are met Void trial initiated 01/09, patient voiding without difficulty following removal Leukocytosis WBCs 9.2 -> 10.3 -> 9.8 Afebrile, HDS Respiratory status stable on RA Blood cultures (12/28): NGTD UA (12/28): +WBCs, leuks UC (12/28): +E.Coli Repeat UA (01/01): +WBCs, leuks Received Zosyn x 7 days for UTI (12/28-12/31 and (01/02-01/06) C.diff PCR (01/02): Positive C.diff EIA (820): Negative Continue PO Vancomycin QID (01/03-01/12) CT CAP (01/07): Interval development of abnormal asymmetric enlargement of the left psoas muscle with central area of hypodensity measuring 2 cm. This finding is concerning for possible myositis and developing abscess. ID and IR consulted, appreciate recommendations Plan for left psoas abscess drainage with IR 01/10 Trend daily CBC SVT Patient with episodes of SVT necessitating IV Metoprolol for conversion to SR ECHO (01/02): EF 60%, mild concentric LVH, LV/RV function normal, mild 1+-2+ AV regurg Consider increasing PO Metoprolol from 12.5 mg TID to 25 mg TID if HR remains uncontrolled PRN IV Metoprolol 5 mg every 6 hours for HR > 120 EP consulted, appreciate recommendations Per EP: SVT likely related to ETOH abuse, electrolyte disturbances, and post-fall inflammation from hemopneumothorax and rib fractures. Continue Metoprolol 25 mg TID. Should she have prolonged recurrences of SVT, a combination of Cardizem CD 120 mg along with beta evon may be considered. No indication for antiarrhythmic at this time. Continuous cardiac monitoring Monitor electrolytes and supplement as needed Acute blood loss anemia, ?UGIB- Stable Hgb 8.4 -> 8.5 -> 8.9 +Tarry stool x 1 on 01/02/25 Likely in setting of NSAID administration with history of IBD Okay for DVT chemoprophylaxis; if Hgb continues to decrease, consult GI Continue Pantoprazole BID Transfuse for Hgb < 7.0 or for signs of bleeding Trend daily CBC SOUND consulted for medical management, appreciate recommendations Continue home medications as ordered Current diet order: DIET NPO Pain regimen: Scheduled Tylenol, Lidocaine patch, PRN Oxycodone Bowel regimen: None Labs: As above PPX: DVT: Resume Lovenox 30 mg BID, SCDs, mobilize Ulcer: Pantoprazole BID Vit D level if > 65 yo: 46.4 Consulted Services: SICU ID EP SOUND IR PT/OT Social work Dispo Planning: PT/OT recommend SNF. Case management following. Incidentals: None Follow Up Needs: PCP Staff Trauma Surgeon: Dr. Phillips SIGNATURE: Christie Neil APRN.CNP PATIENT NAME: Cristino Verdugo DATE: 01/10/2025 TIME: 7:38 AM Pager: see below Trauma Service Pager: For questions or concerns Mon-Fri 6a-5p please page [phone]. After 5pm and on Weekends and Holidays, please page [phone] if in ICU or [phone] if on RNF. INPATIENT ATTENDING: Dr. Phillips High-Risk Geriatric Patient Vulnerabilities: Impaired Cognition, Impaired Functional Status, and Malnutrition Diet: DIET NPO Recommendations: Cognition: Impaired Cognition (Consult Geriatrics) bCAM Score (Calc): Negative Delirium Screen Confusion Assessment Method (CAM - ICU Score): (!) Positive Geriatric Consult (Age over 85 or impaired cognition):Consult to [employer] Palliative Care/Hospice: Consult not required Rehab/Therapy: PT/OT Recommendations: PT: Recommended Discharge Disposition: Subacute/SNF OT: Recommended Discharge Disposition: Subacute/SNF Swallow: Swallow Screening Result - Step 2: PASSED Swallow Screen - Patient Able To Swallow 3 Ounce Cup of Water Without Exhibiting Signs Of Aspiration Speech Recommendations: Speech: Recommended Discharge Disposition: Continued Skilled Speech Therapy Speech Diet: Diet Recommendations: Soft and Bite-Sized IDDSI Level 6, Thin Liquids IDDSI Level 0 Nutrition: Consult to Nutrition Therapy Nutrition Recommendations: MST: Total MST Score (Calculated): 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 diet (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) Supplements: [employer] 1.4, [employer] 1.0 Refer to: Speech/Language (eval to ensure diet appropriate for pt give confusion.) Vitamins and Minerals: Multivitamin with minerals Medications: Appetite stimulants Discharge Recommendations: Diet, Oral Supplements Diet: 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 Oral Supplements: high mike/protein supplement/snack of choice 2-3x/day between meals Pharmacy: Consult not needed Social Work: NA Anticipated Discharge Disposition: Fdc Facility BAS METAB 1999 PNL SERPL Collected: 2:35 AM Status: F Source: [facility] Order Comment: Specimen Type : BLOOD SPECIMEN Ordering Facility: [facility] Address: [address] [place] [address] TYPE CODE TESTS RESULT OUT OF RANGE REFERENCE UNITS LAB 2345-7(LOINC) Glucose SerPl-mCnc 72 Low 74-99 mg/dL Result Comment: The [place] Diabetes Association (ADA) provides guidance for cutoff values for fasting glucose and random glucose. The ADA defines fasting as no caloric intake for at least 8 hours. Fasting plasma glucose results between 100 to 125 mg/dL indicate increased risk for diabetes (prediabetes). Fasting plasma glucose results greater than or equal to 126 mg/dL meet the criteria for diagnosis of diabetes. In the absence of unequivocal hyperglycemia, results should be confirmed by repeat testing. In a patient with classic symptoms of hyperglycemia or hyperglycemic crisis, random plasma glucose results greater than or equal to 200 mg/dL meet the criteria for diagnosis of diabetes. Reference: Standards of Medical Care in Diabetes 2016, [place] Diabetes Association. Diabetes Care. 2016.39(Suppl 1). LAB 3094-0(LOINC) BUN SerPl-mCnc 6 Low 7-21 mg/dL LAB 2160-0(LOINC) Creat SerPl-mCnc 0.60 0.58-0.96 mg/dL LAB 2951-2(LOINC) Sodium SerPl-sCnc 134 Low 136-144 mmol/L LAB 2823-3(LOINC) Potassium SerPl-sCnc 4.5 3.7-5.1 mmol/L LAB 2075-0(LOINC) Chloride SerPl-sCnc 103 98-107 mmol/L LAB 2027-9(LOINC) CO2 SerPl-sCnc 19 Low 22-30 mmol/L LAB 1863-0(LOINC) Anion Gap4 SerPl-sCnc 12 8-15 mmol/L LAB 86748-6(LOINC) Calcium SerPl-mCnc 9.2 8.5-10.2 mg/dL LAB 09263-0(LOINC) eGFRcr SerPlBld CKD-EPI 2020 93 >=60 mL/min/1. 73m??? Result Comment: Estimated Gl omerular Filtration Rate (eGFR) is calculated using the 2020 CKD-EPI creatinine equation. This equation utilizes serum creatinine, sex, and age as parameters. The creatinine assay has traceable calibration to isotope dilution-mass spectrometry. Refer to KDIGO guidelines for clinical interpretation. In patients with unstable renal function, e.g. those with acute kidney injury, the eGFR may not accurately reflect actual GFR. Performed By: #### [id number] # ### [facility] CLIA [id number] [address] [place] [address] [place] [facility] CBC PNL BLD AUTO Collected: 01/10/2025 2:35 AM Statu s: F Source: [facility] Order Comment: Specimen Type : BLOOD SPECIMEN Ordering Facility: [facility] Address: [address] [place] [address] TYPE CODE TESTS RESULT OUT OF RANGE REFERENCE UNITS LAB 6690-2(LOINC) WBC # Bld Auto 9.85 3.70-11.00 k/uL LAB 789-8(LOINC) RBC # Bld Auto 2.54 Low 3.90-5.20 m/ uL LAB 718-7(LOINC) Hgb Bld-mCnc 8.9 Low 11.5-15.5 g/dL LAB 4544-3(LOINC) Hct VFr Bld Auto 27.2 Low 36.0-46.0 % LAB 787-2(LOINC) MCV RBC Auto 107.1 High 80.0-100.0 fL LAB 785-6(LOINC) MCH RBC Qn Auto 35.0 High 26.0-34.0 pg LAB 786-4(LOINC) MCHC RBC Auto-mCnc 32.7 30.5-36.0 g/dL LAB 38931-2(LOINC) RDW RBC-Rto 14.0 11.5-15.0 % LAB 777-3(LOINC) Platelet # Bld Auto 531 High 150-400 k/uL LAB 93923-2(LOINC) PMV Bld Auto 9.7 9.0-12.7 fL LAB 771-6(LOINC) nRBC # Bld Auto <0.01 <0.01 k/uL Performed By: #### [id number] # ### [facility] CLIA [id number] [address] CNPN Observed: 01/10/2025 12:00 AM Status: COMPLETED Source: [facility] Telephone ([facility]) CRISTINO MATA ([id number]) 1945 F Date Time Provider Department 01/10/25August [facility] During your visit today, we recorded the following information about you: Estefania August,N.HISTORIC PRESERVATIONIST 01/10/2025 2:29 PM Signed Pt unknown to [facility] urology. Seen on consult for AUR, failed VT and renal cysts Pt was able to pass VT on 01/09, pvr 25cc She does need to est care for retention and have f/u of renal cyst Pt lives in [place]. Thanks Mason Hein 01/10/2025 3:25 PM Signed Admitted Benjamin Sanchez 01/11/2025 12:00 PM Signed Admitted. Terrie Castro 01/15/2025 7:53 AM Signed 01/15/25 Admitted. Mason Altamirano 01/16/2025 11:31 AM Signed Admitted Terrie Orellana 01/17/2025 9:52 AM Signed Patient's phone out of service. I spoke with contact, Pankaj. He said that [facility] and not able to schedule an appt at this time and then hung up. Terrie Esteban Allergies As of Date: 01/10/2025 Noted Allergy Reaction MILK CONTAINING PRODUCTS (DAIRY) 12/27/2024 6 - Diarrhea PENICILLINS 03/11/2009 Date Reviewed: 01/10/2025 Reviewed by: Yudy Gr MD - Fully Assessed Reason for Visit: Hospital F/U [57] Prescriptions as of 01/17/2025 - acetaminophen (TYLENOL) 500 mg tablet Take 2 tablets by mouth every 8 hours as needed for pain. - lidocaine (SALONPAS) 4 % patch Apply 2 patches as directed once daily for 7 days. - melatonin 3 mg tablet Take 2 tablets by mouth at bedtime as needed for insomnia. - metoprolol tartrate, short acting, (LOPRESSOR) 25 mg tablet Take 1 tablet by mouth three times a day. - budesonide, enteric coated (ENTOCORT EC) 3 mg 24 hr capsule Take 9 mg by mouth once daily. - clopidogrel (PLAVIX) 75 mg tablet Take 75 mg by mouth once daily. - fexofenadine (JERALD) 180 mg tablet Take 180 mg by mouth once daily. - fluticasone (FLONASE ALLERGY RELIEF) 50 mcg/actuation nasal spray Use 2 sprays in each nostril once daily. - Ibandronate 150 mg tablet Take 150 mg by mouth once every month. In AM with cup of water on empty stomach. Nothing else by mouth and stay upright for 60 min. - irbesartan (AVAPRO) 75 mg tablet Take 75 mg by mouth daily at bedtime. - rosuvastatin (CRESTOR) 10 mg tablet Take 10 mg by mouth once daily. 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] 12/27/2024 At risk for delirium [Z91.89] 12/31/2024 Acute cystitis without hematuria [N30.00] 12/31/2024 Acute urinary retention [R33.8] 12/31/2024 Hypokalemia [E87.6] 12/31/2024 Hyponatremia [E87.1] 12/31/2024 SVT (supraventricular tachycardia) ([facility]) [I47.1*12/31/2024 Hypophosphataemia [E83.39] 12/31/2024 Malnutrition of mild degree (HCC) [E44.1] 01/03/2025 Renal cyst [N28.1] 01/04/2025 Delirium [R41.0] 01/07/2025 Constipation [K59.00] 01/07/2025 DNR (do not resuscitate) discussion [Z71.89] 01/07/2025 Frailty syndrome in geriatric patient [R54] 01/07/2025 Goals of care, counseling/discussion [Z71.89] 01/07/2025 Neurodegenerative disorder [G31.9] 01/07/2025 Pain [R52] 01/07/2025 C. 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 Will need new auth. 7000 complete. Will need managed transport. Folder complete. CM to follow for transitional needs SIGNATURE: Shavonne Meier RN PATIENT NAME: Cristino Verdugo DATE: January 09, 2025 TIME: 4:18 PM NURSING PROG Observed: 01/09/2025 3:34 PM Status: COMPLETED Source: [facility] HNO ID: [id number] Author: MARIFER MORGAN RN Service: Nursing Author Type: Registered Nurse Type: Nursing Progress Note Filed: 01/09/2025 15:35 Note Text: Event(s) / Intervention Note: PATIENT NAME: Cristino Verdugo Patient Location: [place] [address] [address] Room: [place] [address] The patient was observed having the following problems: HR sustaining 130s. The time of the event occurred at: 1430. The following intervention(s) were initiated: Dr. Grullon notified. Orders placed in system. After the initiated interventions, the following observation(s) were made: patient has no complaints and nothing further noted. Will continue to observe and check with patient. CONSULT PROG Observed: 01/09/2025 2:16 PM Status: COMPLETED Source: [facility] HNO ID: [id number] Author: MARLYN SAHA MD Service: Hospital Medicine Author Type: Physician Type: Consult Progress Note Filed: 01/09/2025 14:20 Note Text: DEPARTMENT OF HOSPITAL MEDICINE PROGRESS NOTE SERVICE DATE: 01/09/2025 SERVICE TIME: 2:16 PM Hospital Medicine/Primary Attending: Marlyn Saha MD NIGHT AND WEEKEND COVERAGE: After 7pm please page [phone] MEDICATIONS: Current Facility-Administered Medications Medication Dose Route Frequency NaCl 0.9% iv flush bag 20 mL INTRAVENOUS PRN ondansetron 4 mg tab(s) (ZOFRAN) 4 mg ORAL q 6 H PRN Or ondansetron (PF) 4 mg injection (ZOFRAN) 4 mg INTRAVENOUS q 6 H PRN oxyCODONE IR 2.5-5 mg tab(s) (ROXICODONE) 2.5-5 mg ORAL q 4 H PRN folic acid 1 mg tab(s) 1 mg ORAL DAILY lidocaine 4 % 2 patch (SALONPAS) 2 patch TRANSDERMAL DAILY And lidocaine patch - REMOVE OTHER AT BEDTIME And lidocaine - VERIFY PATCH OTHER q 8 H ipratropium-albuterol 3 mL nebulizer solution (DUONEB) 3 mL INHALATION q 6 H PRN cetirizine 10 mg tab(s) (ZYRTEC) 10 mg ORAL DAILY rosuvastatin 10 mg tab(s) (CRESTOR) 10 mg ORAL AT BEDTIME metoprolol 5 mg injection (LOPRESSOR) 5 mg INTRAVENOUS q 6 H PRN pantoprazole 40 mg injection (PROTONIX) 40 mg INTRAVENOUS BID AC (0600/1600) enoxaparin 30 mg injection (LOVENOX) 30 mg SUBCUTANEOUS q 12 HR therapeutic multivitamin-minerals tablet (THERA-M PLUS) 1 tablet ORAL DAILY melatonin 6 mg tab(s) 6 mg ORAL DAILY (8 PM) vancomycin 125 mg oral liquid (VANCOCIN) 125 mg ORAL QID iv contrast (radiology procedure) INTRAVENOUS DIRECTED PRN acetaminophen 1,000 mg tab(s) (TYLENOL) 1,000 mg ORAL TID budesonide, enteric coated 9 mg cap(s) (ENTOCORT EC) 9 mg ORAL DAILY metoprolol tartrate (short acting) 25 mg tab(s) (LOPRESSOR) 25 mg ORAL q 8 H thiamine 200 mg tab(s) (VITAMIN B1) 200 mg ORAL/FEEDING TUBE TID potassium chloride ER 40 mEq tab(s) (KLOR-CON) 40 mEq ORAL TID DATA: Diagnostic tests reviewed for today's visit: Lab data: CBC: Recent Labs 01/09/25 0154 01/08/25 0359 01/07/25 0433 01/06/25 0638 01/05/25 0512 01/04/25 0926 01/04/25 0125 01/03/25 0359 WBC 10.32 9.23 11.13* 8.42 9.83 9.18 8.02 8.21 HB 8.5* 8.4* 9.5* 8.0* 8.5* 8.1* 7.5* 8.4* HCT 25.7* 25.1* 27.9* 23.7* 25.2* 24.8* 23.2* 26.2* PLT 445* 414* 405* 347 366 263 258 253 MCV 105.3* 105.0* 104.9* 104.9* 103.7* 108.3* 106.9* 104.0* RDWCV 13.6 13.8 13.4 13.4 13.1 13.4 13.2 12.7 COAG: No results for input(s): "APTT", "INR" in the last 168 hours. BMP: Recent Labs 01/09/25 0154 01/08/25 03501/07/25 0433 01/06/25 1546 01/06/25 0638 01/05/25 0512 01/04/25 0125 01/03/25 0359 GLUC 84 89 83 93 85 79 76 84 NA 133* 132* 132* 134* 134* 133* 133* 133* K 4.7 3.1* 4.2 2.9* 2.7* 3.4* 3.5* 3.7 CHLOR 104 100 100 101 103 101 102 100 CO2 19* 21* 17* 21* 18* 19* 21* 19* ANION 10 11 15 12 13 13 10 14 BUN 5* 6* 5* 5* 6* 7 10 10 CREAT 0.55* 0.59 0.50* 0.61 0.63 0.74 0.86 0.72 CHEM: Recent Labs 01/09/25 0154 01/08/25 0359 01/07/25 0433 01/06/25 1546 01/06/25 0638 01/05/25 0512 01/04/25 0125 01/03/25 0359 CA 8.7 8.5 8.5 7.8* 7.7* 8.2* 8.0* 8.5 MG -- 2.0 -- -- -- -- -- -- HEPATIC: No results for input(s): "ALKPHOS", "ALT", "AST", "TBILI", "LIPASE" in the last 168 hours. URINALYSIS:No results for input(s): "PH", "SPGR", "UGLUC", "UBILI", "UKET", "UHB", "UPROT", "UROBIL", "UWBC", "SSA" in the last 168 hours. Invalid input(s): "NITR" CARDIAC: No results for input(s): "PBNP" in the last 168 hours. Problem List Pneumothorax (POA: Yes) Fall (POA: Yes) Closed fracture of multiple ribs of left side (POA: Yes) Hemopneumothorax on left (POA: Yes) Alcohol use (POA: Yes) Type 2 diabetes (HCC) (POA: Yes) History of stroke (POA: Yes) History of cholecystectomy (POA: Yes) IBS (irritable bowel syndrome) (POA: Yes) Posttraumatic respiratory insufficiency (POA: Yes) At risk for delirium (POA: Yes) Acute cystitis without hematuria (POA: Clinically Undetermined) Acute urinary retention (POA: Clinically Undetermined) Hypokalemia (POA: No) Hyponatremia (POA: No) SVT (supraventricular tachycardia) (HCC) (POA: Status not on file) Hypophosphataemia (POA: Status not on file) Malnutrition of mild degree (HCC) (POA: Status not on file) Renal cyst (POA: Status not on file) Delirium (POA: Yes) Constipation (POA: Status not on file) DNR (do not resuscitate) discussion (POA: Status not on file) Frailty syndrome in geriatric patient (POA: Status not on file) Goals of care, counseling/discussion (POA: Status not on file) Neurodegenerative disorder (POA: Status not on file) Pain (POA: Status not on file) C. difficile colitis (POA: Status not on file) Psoas muscle abscess (HCC) (POA: Status not on file) PHYSICAL EXAM: BP 116/73 Pulse 79 Temp (Src) 98.1 (Temporal) Resp 15 Ht 5' 1.496" (1.56m) Wt 130 lb 1.1 oz (59.0kg) SpO2 97% BMI 24.18 kg/(m2). O2 Therapy: Room Air Follow up : Pt seen and examined. No acute overnight events GENERAL: Alert, no distress, cooperative SKIN: Skin color, texture, turgor normal. No rashes or lesions. HEAD/SINUSES: No significant findings OROPHARYNX: Lips, mucosa, and tongue normal. Teeth and gums normal. Oropharynx normal. NECK: No jugulovenous distention, No carotid bruits, Carotid pulse normal contour, Supple BACK: Back symmetric, Normal curvature, ROM normal, No CVAT. LUNGS: Lungs clear to auscultation, Good diaphragmatic excursion CARDIAC: Normal S1 and S2; no rubs, murmurs, or gallops ABDOMEN: Abdomen soft, non-tender, BS normal, No masses or organomegaly EXTREMITIES: Minimal left thigh tenderness ASSESSMENT/PLAN: 1. Multiple left-sided rib fractures complicated by hemopneumothorax and subcutaneous emphysema. Patient status post chest tube placement. 2. Anemia. Likely iron deficiency. Iron level noted to be 37. Hemoglobin stable at 8.5. Recommend for patient to be started on p.o. iron on discharge 3. Alcohol use disorder with alcohol withdrawal and delirium. Improved and resolved at this time. Recommend consulting addiction medicine. 4. Paroxysmal supraventricular tachycardia. Most recent EKG showing sinus tachycardia. Currently on metoprolol and was given IV fluids. Primary team has consulted EP 5. Hypokalemia. Most likely related to alcohol use disorder. Will replete orally with 40 mEq 3 times daily x 3 doses 6. Concern for psoas abscess - Per primary team, IR aspiration has been ordered. ID following. Patient recommended to be followed off antibiotics for the abscess at this time. 7. C. difficile - On oral vancomycin for 10 days 8. Acute urinary retention - Urology consulted by primary team and patient recommended for void trial. Per their note, void trial on 01/09 Malnutrition Diagnosis supported by Registered Dietitian:Mild Protein-Calorie Malnutrition Based on: Insufficient Energy Intake Assessment: I have reviewed the result of the malnutrition assessment and plan and agree Plan: Diet, Supplements, Referral, Vitamin/Mineral Supplements, Medications VTE Prophylaxis: As per primary team Disposition: To be determined Plan of care discussed with: Provider, RN, Patient Medication and Non-Pharmacologic VTE Prophylaxis/Anticoagulants Anticoagulant AND Antiplatelet Medications (From admission, onward) Start Dose Route Frequency Last Action Ordered Stop 01/03/25 1000 enoxaparin 30 mg injection (LOVENOX) (enoxaparin injection (LOVENOX)) 30 mg SQ EVERY 12 HOURS Given, 01/09 1035 01/03/25 0948 -- 12/26/24 1434 pneumatic compression sleeve(s) (in,oh) 12/26/24 1434 activity - mobilize patient (in,ca) Portions of this note including HPI, ROS, impression/plan, and examination may have been copied forward from 01/08/2025 to 01/09/2025 as to provide important historical information essential in contributing to medical decision making. Documentation has been reviewed and edited as necessary to support clinical decision making for today's visit and to reflect my own independent evaluation of this patient. SIGNATURE: Marlyn Saha MD PATIENT NAME: Cristino Verdugo DATE: January 09, 2025 TIME: 2:16 PM PAGER/CONTACT #: Team color pager Disclaimer: Portions of this note may have been generated using [employer] voice recognition software. Reasonable efforts were made to correct any dictation errors that resulted due to the programming of this software but some may still be present. Please note, the time of this note does not reflect the time I saw this patient today, but the time of this documentation. PLAN OF CARE Observed: 01/09/2025 2:05 PM Status: COMPLETED Source: [facility] HNO ID: [id number] Author: BRENDA HOPKINS III, MD Service: Infectious Disease Author Type: Physician Type: Plan of Care Filed: 01/09/2025 14:06 Note Text: Communicated with surgery team today. They had reviewed with radiology and there was some question of if this is a hematoma instead of an abscess. We both agreed to still plan for IR aspiration. Continue on oral vancomycin x 10 days. SIGNATURE: Brenda Hopkins III, MD PATIENT NAME: Cristino Verdugo DATE: January 09, 2025 TIME: 2:06 PM [facility] CELL: [phone] CONSULT Observed: 01/09/2025 1:30 PM Status: COMPLETED Source: [facility] HNO ID: [id number] Author: CONNIE GRULLON MD Service: Electrophysiology Author Type: Physician Type: Consults Filed: 01/09/2025 15:37 Note Text: CONSULT: CARDIOLOGY SERVICE SERVICE DATE: 01/09/2025 SERVICE TIME: 220 CONSULTING PHYSICIAN: Connie Grullon PCP: No primary care provider on file. ATTENDING: Nicky Phillips MD REASON FOR CONSULT: Arrhythmias Subjective CHIEF COMPLAINT: Pneumothorax [J93.9] HISTORY OF PRESENT ILLNESS: Mrs. Mehdi Verdugo is a 79 year old female who presents for falls with rib fracture. EP consulted for SVT runs 12/26/24 - Patient admitted after falls related to ETOH use for Lt sided ribs 6-9 fractures with subcutaneous emphysema nad hemopneumothorax s/p chest tube. He has a h.o Htn HLD ETOH abuse, IBS, prior stroke Hospital course complicated with ETOH withdrawn, anemia, Cdiff. Has been with persistently elevated HR since admission Started on metoprolol 25 q 8 with improved rate control Patient says she has had episodes of palpitations lasting several minutes in the past. Doesnot recall syncope. No prior OK HF DM (was initially thought to have DM but says later her PCP did not think so) She has some balance issues, but no tingling numbness or weakness. Here in the hospital says she sometimes feels palpitations but no associated symptoms with it Last a few minutes. Says she is feeling better since yesterday and her Lt chest pain has decreased, Able to take a deep breath without significant pain. Says she has had blood in her stools in the past Telemetry shows episdoes of abrupt onset of SVT Long RP (RP interval lengthens with change in CL) and CL 360ms and then lengthens to 460ms just before termination. Findings consistent with AT. Social histoyr - Remote hi.o smoking. Has h.o ETOH use. Son lives with her. October 2023 ECG 01/04/25 Sinus tach 104 nl pR QRS QT nl STT segment 12/26/24 - Sinus tach 144 IA 132 QRS 68 Qtc 489 TTE 01/02/25 LA vol 61 SHANTANU 39 EF 60 IVS 1.2 SVT - The left ventricle is normal in size. There is mild concentric left ventricular hypertrophy. Left ventricular systolic function is normal. EF = 60 ? 5% (2D biplane) Left ventricular diastolic function was not evaluated due to E/A Fusion. - The right ventricle is normal in size. Right ventricular systolic function is normal. - The left atrial cavity is mildly dilated. - There is mild (1+ - 2+) aortic valve regurgitation. PAST MEDICAL HISTORY Diagnosis Date GERD (Gastroesophageal Reflux Disease) HTN (Hypertension), Benign IBS (Irritable Bowel Syndrome) PAST SURGICAL HISTORY Procedure Laterality Date L'SCOPE DULCE MARIA W/CHOLANGIOGRAPHY 03-03-09 No family history on file. SOCIAL HISTORY[1] Prior to Admission Medications Prescriptions Last Dose Informant Patient Reported? Taking? Ibandronate 150 mg tablet Yes No Sig: Take 150 mg by mouth once every month. In AM with cup of water on empty stomach. Nothing else by mouth and stay upright for 60 min. budesonide, enteric coated (ENTOCORT EC) 3 mg 24 hr capsule Yes No Sig: Take 9 mg by mouth once daily. clopidogrel (PLAVIX) 75 mg tablet Yes No Sig: Take 75 mg by mouth once daily. fexofenadine (JERALD) 180 mg tablet Yes No Sig: Take 180 mg by mouth once daily. fluticasone (FLONASE ALLERGY RELIEF) 50 mcg/actuation nasal spray Yes No Sig: Use 2 sprays in each nostril once daily. irbesartan (AVAPRO) 75 mg tablet Yes No Sig: Take 75 mg by mouth daily at bedtime. metoprolol tartrate, short acting, (LOPRESSOR) 25 mg tablet Yes No Sig: Take 12.5 mg by mouth two times a day. rosuvastatin (CRESTOR) 10 mg tablet Yes No Sig: Take 10 mg by mouth once daily. Facility-Administered Medications: None Current Facility-Administered Medications Medication Dose Route Frequency NaCl 0.9% iv flush bag 20 mL INTRAVENOUS PRN ondansetron 4 mg tab(s) (ZOFRAN) 4 mg ORAL q 6 H PRN Or ondansetron (PF) 4 mg injection (ZOFRAN) 4 mg INTRAVENOUS q 6 H PRN oxyCODONE IR 2.5-5 mg tab(s) (ROXICODONE) 2.5-5 mg ORAL q 4 H PRN folic acid 1 mg tab(s) 1 mg ORAL DAILY lidocaine 4 % 2 patch (SALONPAS) 2 patch TRANSDERMAL DAILY And lidocaine patch - REMOVE OTHER AT BEDTIME And lidocaine - VERIFY PATCH OTHER q 8 H ipratropium-albuterol 3 mL nebulizer solution (DUONEB) 3 mL INHALATION q 6 H PRN cetirizine 10 mg tab(s) (ZYRTEC) 10 mg ORAL DAILY rosuvastatin 10 mg tab(s) (CRESTOR) 10 mg ORAL AT BEDTIME metoprolol 5 mg injection (LOPRESSOR) 5 mg INTRAVENOUS q 6 H PRN pantoprazole 40 mg injection (PROTONIX) 40 mg INTRAVENOUS BID AC (0600/1600) enoxaparin 30 mg injection (LOVENOX) 30 mg SUBCUTANEOUS q 12 HR therapeutic multivitamin-minerals tablet (THERA-M PLUS) 1 tablet ORAL DAILY melatonin 6 mg tab(s) 6 mg ORAL DAILY (8 PM) vancomycin 125 mg oral liquid (VANCOCIN) 125 mg ORAL QID iv contrast (radiology procedure) INTRAVENOUS DIRECTED PRN acetaminophen 1,000 mg tab(s) (TYLENOL) 1,000 mg ORAL TID budesonide, enteric coated 9 mg cap(s) (ENTOCORT EC) 9 mg ORAL DAILY metoprolol tartrate (short acting) 25 mg tab(s) (LOPRESSOR) 25 mg ORAL q 8 H thiamine 200 mg tab(s) (VITAMIN B1) 200 mg ORAL/FEEDING TUBE TID potassium chloride ER 40 mEq tab(s) (KLOR-CON) 40 mEq ORAL TID ALLERGIES Allergen Reactions Milk Containing Pro* Diarrhea Penicillins REVIEW OF SYSTEMS: The following systems were reviewed with the patient, and are unremarkable other than as described below. SYSTEMIC: No fever, chills, or change in weight HEENT: No recent change in vision or hearing. RESPIRATORY: No Pleuritic chest pain, Cough, Wheezing GI: diarrhoea is reducing : No recent hematuria or dysuria. PSYCH: No recent active anxiety or depression. HEMATOLOGY/ONCOLOGY: No recent diagnosis of bleeding. ENDOCRINE: No recent polyuria or heat intolerance. NEURO: No recent TIA, stroke or seizures. Objective PHYSICAL EXAM: Pleasant, comfortable, not in acute distress. Clinically appears dehydrated Awake, alert, oriented times 3. Moves all extremities. SKIN: No rash or lumps. HEENT: Normocephalic, face symmetrical. NECK: Supple, neck veins flat, Carotid normal upstroke no thyromegaly. LUNGS: Clear to auscultation bilaterally. CARDIAC:Regular rhythm nl S1S2. Thin chest. No audible murmur ABDOMEN: Soft, nontender, EXTREMITIES: No edema. Skin - areas of ecchymoses and bruises hands Resolving bruise Lt chest wall anterolateral, axillary infraaxillary areas Body mass index is 24.18 kg/m?. O2 Therapy: Room Air No data recorded Patient Vitals for the past 48 hrs: BP Temp Temp src Pulse Resp SpO2 Weight 01/09/25 1121 -- 36.7 ?C (98.1 ?F) Temporal -- -- -- -- 01/09/25 1050 116/73 -- -- 79 15 97 % -- 01/09/25 1042 121/74 -- -- (!) 147 -- 99 % -- 01/09/25 0749 138/86 36.8 ?C (98.2 ?F) Oral 100 16 98 % -- 01/09/2518 -- -- -- 82 -- -- -- 01/09/25 0542 -- -- -- (!) 133 -- -- -- 01/09/25 0528 117/71 37.1 ?C (98.8 ?F) Oral (!) 164 18 94 % 59 kg (130 lb 1.1 oz) 01/09/25 0144 136/77 36.8 ?C (98.2 ?F) Oral 99 18 99 % -- 01/08/25 2041 134/81 36.7 ?C (98 ?F) Temporal 106 18 99 % -- 01/08/25 1513 127/97 36.7 ?C (98 ?F) Axillary 102 18 98 % -- 01/08/2521 -- -- -- -- -- -- 61.4 kg (135 lb 5.8 oz) 01/08/25 0616 111/56 -- -- 104 -- -- -- 01/08/25 0350 152/91 36.9 ?C (98.5 ?F) Oral 102 16 96 % -- 01/07/252232 102/56 -- -- 79 -- -- -- 01/07/254 112/61 -- -- (!) 130 -- -- -- 01/07/252220 94/55 -- -- (!) 131 -- -- -- 01/07/252218 100/55 -- -- (!) 134 -- -- -- 01/07/252215 102/62 -- -- (!) 144 -- -- -- 01/07/252205 105/78 -- -- (!) 139 -- -- -- 01/07/257 -- 37.9 ?C (100.3 ?F) Oral 103 18 94 % -- 01/07/25 2133 131/68 -- -- -- -- -- -- 01/07/25 2130 110/68 -- -- 112 -- -- -- 01/07/25 1944 133/73 36.9 ?C (98.5 ?F) Oral 109 16 97 % -- 01/07/25 1555 (!) 105/46 36.2 ?C (97.1 ?F) Axillary 85 16 96 % -- 01/07/25 1412 -- -- -- -- -- -- 64.8 kg (142 lb 13.7 oz) 01/07/25 1348 -- -- -- 78 -- -- -- 01/07/25 1333 109/56 -- -- (!) 130 -- -- -- DATA: Diagnostic tests reviewed for today's visit: Most recent labs and imaging results. Past 72 Hour Labs: Recent Labs 01/09/25 0154 01/08/25 0359 WBC 10.32 9.23 RBC 2.44* 2.39* HB 8.5* 8.4* HCT 25.7* 25.1* MCV 105.3* 105.0* MCH 34.8* 35.1* MCHC 33.1 33.5 RDWCV 13.6 13.8 PLT 445* 414* MPV 9.9 9.3 GLUC 84 89 BUN 5* 6* CREAT 0.55* 0.59 NA 133* 132* K 4.7 3.1* CHLOR 104 100 CO2 19* 21* CA 8.7 8.5 MG -- 2.0 Last Lab Drawn: TSH 4.680 12/31/2024 Impression/Recommendations Principal Problem: SVT (supraventricular tachycardia) (HCC) (POA: Unknown) Assessment AND Plan: Elderly frail lady with multiple medical problems. Her SVT is likely related to her h.o ETOH over time, electrolyte disturbances and post fall inflammation from hemopneumothoriax and rib fractures The episodes have become shorter in duration. Agree with continuing metoprolol tartarate q 8H for now.and upon discharge can continue metoprolol tartrate 25 to 27.5 bid depending upon HR and BP. No indication for antiarrhythmic at this time. Should she have prolonged recurrences of SVT a combination of Cardizem CD 120mg along with BB may be considered. She can FU with her doctors upon discharge. Resolved Problems: * No resolved hospital problems. * Orders reviewed and I agree with the cardiac orders. Thank you for this consult. Please call with questions or concerns. The EP group pager is [phone]). SIGNATURE: Connie Grullon MD PATIENT NAME: Cristino Verdugo DATE: January 09, 2025 TIME: 1:30 PM PAGER/CONTACT #: [phone] Received information from RN that patient is in SVT 130s Plan give IVF 500ml normal saline and give her PRN metoprolol IF continues, then add Cardizem CD 120mg daily Connie Grullon MD [1] NUTRITION Observed: 01/09/2025 10:54 AM Status: COMPLETED Source: [facility] HNO ID: [id number] Author: NANDA HENDRICKS RD Service: Nutrition Therapy Author Type: Registered Dietitian Type: Nutrition Filed: 01/09/2025 13:27 Note Text: NUTRITION THERAPY PROGRESS NOTE SERVICE DATE: 01/09/2025 SERVICE TIME: Start Time: 1054 Nutrition Assessment: Recommended Malnutrition Diagnosis: Mild Protein-Calorie Malnutrition (01/03/25 0942 : Stephanie Lyons RD) Care Plan: Continue current diet (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) Supplements: Sierra [employer] 1.4, Sierra [employer] 1.0 Medications: Appetite stimulants Monitor and Evaluation: Meet greater than 75% of estimated needs, Monitor labs, I/Os, vital signs, weight, Monitor bowel function Discharge Recommendations: Diet, Oral Supplements Diet: 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 Oral Supplements: high mike/protein supplement/snack of choice 2-3x/day between meals Interval History: WOVEN LABEL DESIGNER consulted AND is recommending soft AND bite-sized consistency. General surgery following. Note plan for IR aspiration of possible psoas abscess. EP consulted r/t uncontrolled HR. GI Symptoms: Diarrhea Stool Consistency: Watery Intake History: Current Nutrition Intake: 0-25% estimated energy needs Current Intake Over time: Greater than or equal to 7 days (14 days). Intake remains low. Patient states she feels she is doing ok with intake, but per nursing, she is not eating much AND does not drink much of the shakes. Did encourage PO / supplements with pt at visit. Was NPO this morning for testing. Dosing Weight: 49.9 kg (110 lb) Dosing Weight Type: [place] body weight Estimated kilocalorie needs: 0078-2275 Calorie Calculation Method: 25-30 kcals/kg Estimated protein needs (grams): 60-75 Grams protein determined by: 1.2 - 1.5 g/kg Diet Orders (From admission, onward) Start Ordered 01/10/25 0001 DIET NPO AFTER MIDNIGHT Question Answer Comment NPO Restrictions EXCEPT MEDS NPO Restrictions EXCEPT SIPS OF WATER 01/09/25 0956 01/09/25 1000 DIET FOOD CONSISTENCY CONTROLLED START NOW Question Answer Comment Food Consistency SOFT AND BITE-SIZED (L6) Liquid Consistency THIN LIQUID (L0) 01/09/25 0946 01/03/25 1045 DIET SUPPLEMENTS START NOW Question Answer Comment Supplement 1 SIERRA FARMS 1.4 VANILLA Supplement 1 Frequency BREAKFAST Supplement 2 SIERRA FARMS 1.0 CHOCOLATE Supplement 2 Frequency LUNCH Supplement 3 SIERRA FARMS 1.0 VANILLA Supplement 3 Frequency DINNER 01/03/25 1030 Anthropometrics: Height: 156.2 cm (5' 1.5") Weight: 59 kg (130 lb 1.1 oz) Body mass index is 24.18 kg/m?. MNT Billing: $ Routine Care : 1 unit Time Spent (mins): 4 SIGNATURE: Nanda Hendricks RD PATIENT NAME: Cristino Verdugo DATE: January 09, 2025 TIME: 10:54 AM PROGRESS Observed: 01/09/2025 9:30 AM Status: COMPLETED Source: [facility] HNO ID: [id number] Author: YOU DELGADO PA-C Service: General Surgery Author Type: Physician Supervisor Contact And Service Clerks Type: Progress Notes Filed: 01/09/2025 09:58 Note Text: Trauma Surgery Progress Note SERVICE DATE: 01/09/2025 Trauma Service Pager: For questions or concerns Mon-Fri 6a-5p please page [phone]. After 5pm and on Weekends and Holidays, please page [phone] if in ICU or [phone] if on RNF. SUBJECTIVE: NAEON. Patient sleeping but easily awakes to voice. Although she is more alert than during previous encounters, she still appears confused at times during interview. She denies pain at this time. Denies CP, sob, abdominal pain, n/v, chills or sweats. Informed her that we are going to try to remove her villela today and, at that point, she seemed very confused stating that she voided on her own "a couple times yesterday." OBJECTIVE: Vitals: Temp (24hrs), Av.8 ?C (98.2 ?F), Min:36.7 ?C (98 ?F), Max:37.1 ?C (98.8 ?F) BP 138/86 Pulse 100 Temp 36.8 ?C (98.2 ?F) (Oral) Resp 16 Ht 156.2 cm (5' 1.5") Wt 59 kg (130 lb 1.1 oz) SpO2 98% BMI 24.18 kg/m? O2 Therapy: Room Air IANDO: Date 01/08/25 07 - 01/09/25 0659 01/09/25 07 - 01/10/25 0659 Shift 7524-3263 4582-0526 4412-3055 24 Hour Total 1245-6621 5783-0091 1274-9272 24 Hour Total INTAKE Shift Total OUTPUT Urine 186 619 6211 300 300 Output ([REMOVED] Indwelling Urinary Catheter 01/02/25 0100 Villela 16 Fr 01/09/25 0912) 634 640 5979 300 300 # of BMs Number of BMs 1 x 1 x 1 x 3 x Shift Total 380 539 2718 300 300 Weight (kg) 61.4 61.4 59 59 59 59 59 59 MEDICATIONS: Current Facility-Administered Medications Medication Dose Route Frequency NaCl 0.9% iv infusion 75 mL/hr INTRAVENOUS CONTINUOUS thiamine 200 mg tab(s) (VITAMIN B1) 200 mg ORAL/FEEDING TUBE TID potassium chloride ER 40 mEq tab(s) (KLOR-CON) 40 mEq ORAL TID iv contrast (radiology procedure) INTRAVENOUS DIRECTED PRN acetaminophen 1,000 mg tab(s) (TYLENOL) 1,000 mg ORAL TID budesonide, enteric coated 9 mg cap(s) (ENTOCORT EC) 9 mg ORAL DAILY metoprolol tartrate (short acting) 25 mg tab(s) (LOPRESSOR) 25 mg ORAL q 8 H vancomycin 125 mg oral liquid (VANCOCIN) 125 mg ORAL QID [Order Held by LIP] enoxaparin 30 mg injection (LOVENOX) 30 mg SUBCUTANEOUS q 12 HR therapeutic multivitamin-minerals tablet (THERA-M PLUS) 1 tablet ORAL DAILY melatonin 6 mg tab(s) 6 mg ORAL DAILY (8 PM) pantoprazole 40 mg injection (PROTONIX) 40 mg INTRAVENOUS BID AC (0600/1600) metoprolol 5 mg injection (LOPRESSOR) 5 mg INTRAVENOUS q 6 H PRN folic acid 1 mg tab(s) 1 mg ORAL DAILY lidocaine 4 % 2 patch (SALONPAS) 2 patch TRANSDERMAL DAILY And lidocaine patch - REMOVE OTHER AT BEDTIME And lidocaine - VERIFY PATCH OTHER q 8 H ipratropium-albuterol 3 mL nebulizer solution (DUONEB) 3 mL INHALATION q 6 H PRN cetirizine 10 mg tab(s) (ZYRTEC) 10 mg ORAL DAILY rosuvastatin 10 mg tab(s) (CRESTOR) 10 mg ORAL AT BEDTIME NaCl 0.9% iv flush bag 20 mL INTRAVENOUS PRN ondansetron 4 mg tab(s) (ZOFRAN) 4 mg ORAL q 6 H PRN Or ondansetron (PF) 4 mg injection (ZOFRAN) 4 mg INTRAVENOUS q 6 H PRN oxyCODONE IR 2.5-5 mg tab(s) (ROXICODONE) 2.5-5 mg ORAL q 4 H PRN Labs: Recent Labs 01/09/25 0154 01/08/25 0359 NA 133* 132* K 4.7 3.1* CHLOR 104 100 CO2 19* 21* BUN 5* 6* CREAT 0.55* 0.59 GLUC 84 89 ANION 10 11 CA 8.7 8.5 MG -- 2.0 WBC 10.32 9.23 HB 8.5* 8.4* HCT 25.7* 25.1* PLT 445* 414* PHYSICAL EXAM: Genl: Appears age appropriate. No acute distress. Resting comfortably. Head/Face: Normocephalic. Atraumatic. Eyes: EOMI. Sclera not icteric, not injected Resp: Lung sounds are clear bilat. No wheezes. No rales. Breathing is non-labored on RA. Left chest wall tenderness without crepitus. CVS: RRR as above; 2+ pulses at RA, DP, PT bilat. GI: Abdomen is soft, non-tender, not distended. Bowel sounds normoactive. No peritonitis. : Villela catheter draining clear, yellow urine. MSK: Extremities without clubbing, cyanosis, edema. Normal ROM x 4. Skin: Warm and dry. Not jaundiced. Moderately left forearm edema. Ecchymosis to left upper extremity. Scattered ecchymosis to right upper extremity. Ecchymosis to left chest, hip. Neuro: AANDOx2. Strength and sensation normal. BRAGA. Psych: Alert, awake, pleasant, conversant. ASSESSMENT AND PLAN: Assessment Active Hospital Problems Diagnosis Date Noted Pneumothorax 12/26/2024 C. difficile colitis 01/08/2025 Psoas muscle abscess (HCC) 01/08/2025 Delirium 01/07/2025 Constipation 01/07/2025 DNR (do not resuscitate) discussion 01/07/2025 Frailty syndrome in geriatric patient 01/07/2025 Goals of care, counseling/discussion 01/07/2025 Neurodegenerative disorder 01/07/2025 Pain 01/07/2025 Renal cyst 01/04/2025 Malnutrition of mild degree (HCC) 01/03/2025 At risk for delirium 12/31/2024 Acute cystitis without hematuria 12/31/2024 Acute urinary retention 12/31/2024 Hypokalemia 12/31/2024 Hyponatremia 12/31/2024 SVT (supraventricular tachycardia) ([facility]) 12/31/2024 Hypophosphataemia 12/31/2024 Posttraumatic respiratory insufficiency 12/27/2024 Fall 12/26/2024 Closed fracture of multiple ribs of left side 12/26/2024 Hemopneumothorax on left 12/26/2024 Alcohol use 12/26/2024 Type 2 diabetes (HCC) 12/26/2024 Chronic IBS (irritable bowel syndrome) 12/26/2024 Chronic History of stroke 2013 Chronic History of cholecystectomy 2008 Chronic Assessment: 79-year old female s/p mechanical fall on 12/26/24 (Trauma transfer from [place]) Imaging performed: CT HNCAP ([place] [facility], 12/26) CXR, XR left elbow/forearm (12/26) CXR x 2 (12/27) CXR x 3, CTA chest, CTAP (12/28) CXR (12/29) CXR (12/30) CXR (12/31) CT brain, CXR x 2, KUB (01/01) CXR (01/02) CXR (01/03) CXR (01/04) DVT US BUE (01/05) CT CAP (01/07) XR L femur (01/08) Traumatic Injuries: Left 6-9 rib fractures with associated hemopneumothorax and subcutaneous emphysema Left elbow contusion with small skin tear Operations/Procedures: 1. 12/27/2024 - Left chest tube inserted 2. 12/28/2024 - Left subclavian CVC (removed 12/30) Care Plan: Left rib fractures with hemopneumothorax S/p left chest tube insertion 12/27/24 CT to water seal 12/28, removed 01/01 CXR (01/04): Persistent left lung base focal opacity CT chest (01/07): Trace left pleural effusion Respiratory status stable on RA Aggressive pulmonary hygiene Multimodal pain control Mobilize as tolerated ETOH abuse, delirium Patient reports daily wine consumption 3-4 glasses Received Phenobarbital and Ativan at [facility] and during transfer Phenobarb taper discontinued 2/ sedation CIWA protocol Continue Thiamine, Folate Social work consult Discontinue Seroquel due to drowsiness Continue Melatonin at HS Acute urinary retention Villela inserted 12/28 due to high volume retention Villela catheter removed 12/31 and void trial initiated Required straight catheterization x 1 due to continued retention on 01/01 Villela catheter reinserted 01/02 due to high volume retention Urology consulted, appreciate recommendations Per urology: Consider formal urology driven void trial prior to discharge if milestones of mentation at baseline, improvement in ambulation, and having regular bowel movements are met Urology resident called 01/09/2025 for voiding trial instructions. Leukocytosis WBCs 10.3 from 9.23 Afebrile; HDS T-Max 37.1 Respiratory status stable on RA Blood cultures (12/28): NGTD UA (12/28): +WBCs, leuks UC (12/28): +E.Coli Repeat UA (01/01): +WBCs, leuks Received Zosyn x 7 days for UTI (12/28-12/31 and (01/02-01/06) C.diff PCR (01/02): Positive C.diff EIA (820): Negative Continue PO Vancomycin QID (01/03-01/12) CT CAP (01/07): Interval development of abnormal asymmetric enlargement of the left psoas muscle with central area of hypodensity measuring 2 cm. This finding is concerning for possible myositis and developing abscess. ID consulted, appreciate recommendations Order placed for IR aspiration of possible psoas abscess per ID recommendations Discussed with IR attending Dr. Coronel 01/09/2025 -> procedure unlikely to occur today secondary to high patient volume requiring CT/IR procedures. Per Dr. Coronel, area looks to be more consistent with hematoma given history of trauma. Discussed IR recommendations with ID (Dr. Hopkins) -> preference to move forward with IR aspiration due to risk of severe illness if area is in fact an abscess rather than hematoma; ok for procedure tomorrow if able; monitor off abx for now. Trend daily CBC SVT Patient with episodes of SVT necessitating IV Metoprolol for conversion to SR ECHO (01/02): EF 60%, mild concentric LVH, LV/RV function normal, mild 1+-2+ AV regurg PO Metoprolol increased from 12.5 mg TID to 25 mg TID on 01/07/25 for intermittent intervals of SVT PRN IV Metoprolol 5 mg every 6 hours for HR > 120 Last received IV Lopressor 01/09/2025 @ 0529 Continuous cardiac monitoring Monitor electrolytes and supplement as needed Consult EP for further assessment as HR continues to be uncontrolled with PO medications only and cannot discharge patient to facility on IV Lopressor Acute blood loss anemia, ?UGIB- Stable Hgb 8.5 from 8.4 +Tarry stool x 1 on 01/02/25 Likely in setting of NSAID administration with history of IBD Resume DVT chemoprophylaxis; if Hgb continues to decrease, consult GI Continue Pantoprazole BID Transfuse for Hgb < 7.0 or for signs of bleeding Trend daily CBC Geriatrics consulted, appreciate recommendations Continue home medications as ordered Current diet order: DIET FOOD CONSISTENCY CONTROLLED Pain regimen: Scheduled Tylenol, Lidocaine patch; PRN Oxycodone, Robaxin Bowel regimen: None Labs: As above PPX: DVT: Lovenox 30 mg BID, SCDs, mobilize Ulcer: Pantoprazole BID Vit D level if > 65 yo: 46.4 Consulted Services: SICU ID Geriatrics PT/OT Social work Dispo Planning: PT/OT recommend SNF. Case management following. Incidentals: None Follow Up Needs: PCP Staff Trauma Surgeon: Dr. Phillips Portions of text from this note were copied from prior patient encounter. All relevant information was updated to reflect most-recent clinical decision-making and plan of care January 09, 2025. SIGNATURE: You Delgado PA-C PATIENT NAME: Cristino Verduog DATE: 01/09/2025 TIME: 9:30 AM Pager: see below Trauma Service Pager: For questions or concerns Mon-Fri 6a-5p please page [phone]. After 5pm and on Weekends and Holidays, please page [phone] if in ICU or [phone] if on RNF. INPATIENT ATTENDING: Dr. Phillips High-Risk Geriatric Patient Vulnerabilities: Impaired Cognition, Impaired Functional Status, and Malnutrition Diet: DIET NPO Recommendations: Cognition: Impaired Cognition (Consult Geriatrics) bCAM Score (Calc): Negative Delirium Screen Confusion Assessment Method (CAM - ICU Score): (!) Positive Geriatric Consult (Age over 85 or impaired cognition):Consult to [employer] Palliative Care/Hospice: Consult not required Rehab/Therapy: PT/OT Recommendations: PT: Recommended Discharge Disposition: Subacute/SNF OT: Recommended Discharge Disposition: Subacute/SNF Swallow: Swallow Screening Result - Step 2: PASSED Swallow Screen - Patient Able To Swallow 3 Ounce Cup of Water Without Exhibiting Signs Of Aspiration Speech Recommendations: Speech: Recommended Discharge Disposition: Continued Skilled Speech Therapy Speech Diet: Diet Recommendations: Soft and Bite-Sized IDDSI Level 6, Thin Liquids IDDSI Level 0 Nutrition: Consult to Nutrition Therapy Nutrition Recommendations: MST: Total MST Score (Calculated): 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 diet Supplements: Tracour 1.4, Tracour 1.0 (allergy to milk products.) Refer to: Speech/Language (eval to ensure diet appropriate for pt give confusion.) Vitamins and Minerals: Multivitamin with minerals Medications: Appetite stimulants Discharge Recommendations: Diet, Oral Supplements Diet: regular vs WOVEN LABEL DESIGNER Oral Supplements: high mike/protein supplement/snack of choice 2-3x/day between meals Pharmacy: Consult not needed Social Work: NA Anticipated Discharge Disposition: Fdc Facility THERAPY NT Observed: 01/09/2025 9:25 AM Status: COMPLETED Source: [facility] HNO ID: [id number] Author: JEROME FRANK CCC-SLP Service: Speech/Swallow Author Type: Speech Language Pathologist Type: Therapy (PT/OT/Speech/Resp) Filed: 01/09/2025 09:25 Note Text: SPEECH THERAPY MISSED VISIT SERVICE DATE: 01/09/2025 SERVICE TIME: 924 ROOM: [place] [address] Patient not seen due to Test / Procedure - currently NPO. SIGNATURE: EVETTE Head PATIENT NAME: Cristino Verdugo DATE: January 09, 2025 TIME: 9:25 AM ECG COMPLETE Observed: 01/09/2025 6:17 AM Status: F Source: [facility] Ventricular Rate : 88 BPM Atrial Rate : 88 BPM P-R Interval : 172 ms QRS Duration : 72 ms Q-T Interval : 364 ms QTC Calculation(Bazett) : 440 ms Calculated P [place] : 0 degrees Calculated R [place] : 10 degrees Calculated T [place] : 12 degrees NORMAL SINUS RHYTHM MINIMAL VOLTAGE CRITERIA FOR LVH, MAY BE NORMAL VARIANT ( Sokolow-Ott ) SEPTAL INFARCT , AGE UNDETERMINED ABNORMAL ECG Confirmed by MD SALAZAR YASSAR ([id number]) on 01/09/2025 12:44:05 PM NAME : CRISTINO MATA PID : [id number] : 1945 Gender : Female Race : ORD : [id number] Procedure Date : Jan 09 2025 06:17:30 Edit Date : Jan 09 2025 12:44:08 Diagnosis: NORMAL SINUS RHYTHM MINIMAL VOLTAGE CRITERIA FOR LVH, MAY BE NORMAL VARIANT ( Sokolow-Ott ) SEPTAL INFARCT , AGE UNDETERMINED ABNORMAL ECG Confirmed by MD SALAZAR YASSAR ([id number]) on 01/09/2025 12:44:05 PM Test Reason : Arrhythmia Location : [address] : [place] [address] Overread By : MD SALAZAR YASSAR Edited By : MD SALAZAR YASSAR Referred By : , Acquired by : HAILY FRIEDMAN 1999 PNL SERPL Collected: 1:54 AM Status: F Source: [facility] Order Comment: Specimen Type : BLOOD SPECIMEN Ordering Facility: [facility] Address: [address], [place] [id number] TYPE CODE TESTS RESULT OUT OF RANGE REFERENCE UNITS LAB 2345-7(LOINC) Glucose SerPl-mCnc 84 74-99 mg/dL Result Comment: The [place] Diabetes Association (ADA) provides guidance for cutoff values for fasting glucose and random glucose. The ADA defines fasting as no caloric intake for at least 8 hours. Fasting plasma glucose results between 100 to 125 mg/dL indicate increased risk for diabetes (prediabetes). Fasting plasma glucose results greater than or equal to 126 mg/dL meet the criteria for diagnosis of diabetes. In the absence of unequivocal hyperglycemia, results should be confirmed by repeat testing. In a patient with classic symptoms of hyperglycemia or hyperglycemic crisis, random plasma glucose results greater than or equal to 200 mg/dL meet the criteria for diagnosis of diabetes. Reference: Standards of Medical Care in Diabetes 2016, [place] Diabetes Association. Diabetes Care. 2016.39(Suppl 1). LAB 3094-0(LOINC) BUN SerPl-mCnc 5 Low 7-21 mg/dL LAB 2160-0(LOINC) Creat SerPl-mCnc 0.55 Low 0.58-0.96 mg/dL LAB 2951-2(LOINC) Sodium SerPl-sCnc 133 Low 136-144 mmol/L LAB 2823-3(LOINC) Potassium SerPl-sCnc 4.7 3.7-5.1 mmol/L LAB 2075-0(LOINC) Chloride SerPl-sCnc 104 98-107 mmol/L LAB 2028-9(LOINC) CO2 SerPl-sCnc 19 Low 22-30 mmol/L LAB 1863-0(LOINC) Anion Gap4 SerPl-sCnc 10 8-15 mmol/L LAB 54172-2(LOINC) Calcium SerPl-mCnc 8.7 8.5-10.2 mg/dL LAB 94253-8(LOINC) eGFRcr SerPlBld CKD-EPI 2020 95 >=60 mL/min/1. 73m??? Result Comment: Estimated Gl omerular Filtration Rate (eGFR) is calculated using the 2020 CKD-EPI creatinine equation. This equation utilizes serum creatinine, sex, and age as parameters. The creatinine assay has traceable calibration to isotope dilution-mass spectrometry. Refer to KDIGO guidelines for clinical interpretation. In patients with unstable renal function, e.g. those with acute kidney injury, the eGFR may not accurately reflect actual GFR. Performed By: #### 2132-9, 2 4321-2 #### [facility] CLIA [id number] [address] VIT B12 SERPL-MCNC Collected: 01/09/2025 1:54 AM Sta tus: F Source: [facility] Order Comment: Specimen Type : BLOOD SPECIMEN Ordering Facility: [facility] Address: [address] [place] [address] TYPE CODE TESTS RESULT OUT OF RANGE REFERENCE UNITS LAB 2132-9(LOINC) Vit B12 SerPl-mCnc 1698 High 232-1245 pg/mL Performed By: #### 2132-9, 2 432-2 #### [facility] CLIA [id number] [address] CBC PNL BLD AUTO Collected: 01/09/2025 1:54 AM Statu s: F Source: [facility] Order Comment: Specimen Type : BLOOD SPECIMEN Ordering Facility: [facility] Address: [address] [place] [address] TYPE CODE TESTS RESULT OUT OF RANGE REFERENCE UNITS LAB 6690-2(LOINC) WBC # Bld Auto 10.32 3.70-11.00 k/uL LAB 789-8(LOINC) RBC # Bld Auto 2.44 Low 3.90-5.20 m/ uL LAB 718-7(LOINC) Hgb Bld-mCnc 8.5 Low 11.5-15.5 g/dL LAB 4544-3(LOINC) Hct VFr Bld Auto 25.7 Low 36.0-46.0 % LAB 787-2(LOINC) MCV RBC Auto 105.3 High 80.0-100.0 fL LAB 785-6(LOINC) MCH RBC Qn Auto 34.8 High 26.0-34.0 pg LAB 786-4(LOINC) MCHC RBC Auto-mCnc 33.1 30.5-36.0 g/dL LAB 09558-3(LOINC) RDW RBC-Rto 13.6 11.5-15.0 % LAB 777-3([facility]) Platelet # Bld Auto 445 High 150-400 k/uL LAB 36875-3([facility]) PMV Bld Auto 9.9 9.0-12.7 fL LAB 771-6([facility]) nRBC # Bld Auto <0.01 <0.01 k/uL Performed By: #### 57121-2 # ### [facility] CLIA [id number] [address] XR FEMUR 2V AP/LAT LT Observed: 01/09/20 7:34 PM Status: F Source: [facility] * * *Final Report* * * DATE OF EXAM: Jan 08 2025 7:34PM AKX 5332 - XR FEMUR 2V AP/LAT LT / PROCEDURE REASON: Fracture, femur * * * * Physician Interpretation * * * * LEFT FEMUR, AP AND LATERAL: CLINICAL INDICATION: Left lower extremity trauma, blunt. Mechanical fall. AP and lateral radiographs of the proximal femur including the hip joint and AP and lateral radiographs of the distal femur including the knee joint are submitted. Proximal and distal femoral articulations are maintained. No acute femur fracture. No appreciable suprapatellar effusion. A Villela catheter is present with radiopaque tubing overlying the left thigh. IMPRESSION: No acute osseous abnormality. Cloud Subject Matter Expert: ANA Transcribe Date/Time: Jan 09 2025 7:23A Dictated by : AMELIE POLLACK MD This examination was interpreted and the report reviewed and electronically signed by: AMELIE POLLACK MD on Jan 09 2025 7:28AM EST [id number] CONSULT Observed: 01/08/2025 6:36 PM Status: COMPLETED Source: [facility] HNO ID: [id number] Author: CELY GAYLE MD Service: Hospital Medicine Author Type: Physician Type: Consults Filed: 01/08/2025 18:46 Note Text: DEPARTMENT OF HOSPITAL MEDICINE INITIAL CONSULT SERVICE DATE: 01/08/2025 SERVICE TIME: 6:37 PM Primary Care Physician: No primary care provider on file. NIGHT AND WEEKEND COVERAGE: [place] COVERAGE: From 7am - 7pm, please call fidel banda After 7pm, please call cross cover pager #[phone] REASON FOR CONSULT: Medical management REQUESTING PHYSICIAN: Dr. Nicky Phillips Subjective CHIEF COMPLAINT: Fall and rib fractures HPI: This is a 79 year old female with a history of alcohol use disorder who was admitted to the trauma service on account of multiple left-sided rib fractures complicated by hemopneumothorax and subcutaneous emphysema. Patient's status post chest tube placement. Hospital medicine consulted for medical management. Patient has a history of alcohol use disorder. History complicated by paroxysmal supraventricular tachycardia that appears to be well-controlled on metoprolol 25 mg 3 times daily at this time. Hospital stay was complicated by development of the C. difficile associated diarrhea. Patient currently denies any chest pain abdominal pain or nausea or vomiting. Complains of the left thigh pain. Patient asking when she can go home Is the Patient Experiencing Pain: No: 0 on a scale of 0 to 10 PAST MEDICAL HISTORY Diagnosis Date GERD (Gastroesophageal Reflux Disease) HTN (Hypertension), Benign IBS (Irritable Bowel Syndrome) PAST SURGICAL HISTORY Procedure Laterality Date L'SCOPE DULCE MARIA W/CHOLANGIOGRAPHY 03-03-09 No family history on file. SOCIAL HISTORY[1] MEDICATIONS: Reviewed Prescriptions Prior to Admission[2] Current Facility-Administered Medications Medication Dose Route Frequency NaCl 0.9% iv flush bag 20 mL INTRAVENOUS PRN ondansetron 4 mg tab(s) (ZOFRAN) 4 mg ORAL q 6 H PRN Or ondansetron (PF) 4 mg injection (ZOFRAN) 4 mg INTRAVENOUS q 6 H PRN oxyCODONE IR 2.5-5 mg tab(s) (ROXICODONE) 2.5-5 mg ORAL q 4 H PRN thiamine 100 mg tab(s) (VITAMIN B1) 100 mg ORAL/FEEDING TUBE TID folic acid 1 mg tab(s) 1 mg ORAL DAILY lidocaine 4 % 2 patch (SALONPAS) 2 patch TRANSDERMAL DAILY And lidocaine patch - REMOVE OTHER AT BEDTIME And lidocaine - VERIFY PATCH OTHER q 8 H ipratropium-albuterol 3 mL nebulizer solution (DUONEB) 3 mL INHALATION q 6 H PRN cetirizine 10 mg tab(s) (ZYRTEC) 10 mg ORAL DAILY rosuvastatin 10 mg tab(s) (CRESTOR) 10 mg ORAL AT BEDTIME metoprolol 5 mg injection (LOPRESSOR) 5 mg INTRAVENOUS q 6 H PRN pantoprazole 40 mg injection (PROTONIX) 40 mg INTRAVENOUS BID AC (0600/1600) enoxaparin 30 mg injection (LOVENOX) 30 mg SUBCUTANEOUS q 12 HR therapeutic multivitamin-minerals tablet (THERA-M PLUS) 1 tablet ORAL DAILY melatonin 6 mg tab(s) 6 mg ORAL DAILY (8 PM) vancomycin 125 mg oral liquid (VANCOCIN) 125 mg ORAL QID iv contrast (radiology procedure) INTRAVENOUS DIRECTED PRN acetaminophen 1,000 mg tab(s) (TYLENOL) 1,000 mg ORAL TID budesonide, enteric coated 9 mg cap(s) (ENTOCORT EC) 9 mg ORAL DAILY metoprolol tartrate (short acting) 25 mg tab(s) (LOPRESSOR) 25 mg ORAL q 8 H . ALLERGIES Allergen Reactions Milk Containing Pro* Diarrhea Penicillins REVIEW OF SYSTEMS: Denies any chest pain or shortness of breath. All other systems reviewed and essentially negative as above in the body of the history Objective PHYSICAL EXAM: BP 127/97 Pulse 102 Temp (Src) 98 (Axillary) Resp 18 Ht 5' 1.496" (1.56m) Wt 135 lb 5.8 oz (61.4kg) SpO2 98% BMI 25.17 kg/(m2). O2 Therapy: Room Air Physical Exam Performed: GENERAL: Alert, no distress, cooperative SKIN: Skin color, texture, turgor normal. No rashes or lesions. HEAD/SINUSES: No significant findings OROPHARYNX: Lips, mucosa, and tongue normal. Teeth and gums normal. Oropharynx normal. NECK: No jugulovenous distention, No carotid bruits, Carotid pulse normal contour, Supple BACK: Back symmetric, Normal curvature, ROM normal, No CVAT. LUNGS: Lungs clear to auscultation, Good diaphragmatic excursion CARDIAC: Normal S1 and S2; no rubs, murmurs, or gallops ABDOMEN: Abdomen soft, non-tender, BS normal, No masses or organomegaly EXTREMITIES: Minimal left thigh tenderness The remainder of the physical exam is noncontributory. Lines, Drains, and Airways Line Duration Peripheral 01/04/25 0113 Right Antecubital 20 Gauge 4 days Peripheral 01/06/25 2100 Right Forearm 20 Gauge 1 day Peripheral 01/06/25 2101 Left Hand 22 Gauge 1 day Drain Duration Indwelling Urinary Catheter 01/02/25 0100 Villela 16 Fr 6 days Patient does not currently have any lines, drains or airways. DATA: Diagnostic tests reviewed for today's visit: Most recent labs and imaging results. Impression/Recommendations 1. Multiple left-sided rib fractures complicated by hemopneumothorax and subcutaneous emphysema. Patient status post chest tube placement. 2. Anemia. Unclear etiology. Possibly related to alcohol use. Will check iron panel and vitamin B12. Check reticulocyte count as well. 3. Alcohol use disorder with alcohol withdrawal and delirium. Improved and resolved at this time. Recommend consulting addiction medicine. 4. Paroxysmal supraventricular tachycardia. Most recent EKG showing sinus tachycardia. Rate is better controlled with metoprolol 25 mg 3 times daily. Will continue. Will give a bolus of lactated Ringer's 500 cc 5. Hypokalemia. Most likely related to alcohol use disorder. Will replete orally with 40 mEq 3 times daily x 3 doses Malnutrition Diagnosis supported by Registered Dietitian:Mild Protein-Calorie Malnutrition Based on: Insufficient Energy Intake Assessment: I have reviewed the result of the malnutrition assessment and plan and agree Plan: Diet, Supplements, Referral, Vitamin/Mineral Supplements, Medications VTE PROPHYLAXIS: As per primary team Disposition: Home Plan of care discussed with: Provider, RN, Patient SIGNATURE: Cely Gayle MD PATIENT NAME: Cristino Verdugo DATE: January 08, 2025 TIME: 6:37 PM [1] [2] budesonide, enteric coated (ENTOCORT EC) 3 mg 24 hr capsule, Take 9 mg by mouth once daily., Disp: , Rfl: clopidogrel (PLAVIX) 75 mg tablet, Take 75 mg by mouth once daily., Disp: , Rfl: fexofenadine (JERALD) 180 mg tablet, Take 180 mg by mouth once daily., Disp: , Rfl:fluticasone (FLONASE ALLERGY RELIEF) 50 mcg/actuation nasal spray, Use 2 sprays in each nostril once daily., Disp: , Rfl: Ibandronate 150 mg tablet, Take 150 mg by mouth once every month. In AM with cup of water on empty stomach. Nothing else by mouth and stay upright for 60 min., Disp: , Rfl: irbesartan (AVAPRO) 75 mg tablet, Take 75 mg by mouth daily at bedtime., Disp: , Rfl:metoprolol tartrate, short acting, (LOPRESSOR) 25 mg tablet, Take 12.5 mg by mouth two times a day., Disp: , Rfl: rosuvastatin (CRESTOR) 10 mg tablet, Take 10 mg by mouth once daily., Disp: , Rfl: PROGRESS Observed: 01/08/2025 12:02 PM Status: COMPLETED Source: [facility] HNO ID: [id number] Author: CHRISTIE NEIL APRN.CNP Service: General Surgery Author Type: Nurse Practitioner Type: Progress Notes Filed: 01/08/2025 12:15 Note Text: Trauma Surgery Progress Note SERVICE DATE: 01/08/2025 Trauma Service Pager: For questions or concerns Mon-Fri 6a-5p please page [phone]. After 5pm and on Weekends and Holidays, please page [phone] if in ICU or [phone] if on RNF. SUBJECTIVE: No acute overnight events. Patient is awake, alert and oriented x 2. Respiratory status stable on RA. She reports improvement in abdominal pain. She denies chest pain, shortness of breath, nausea, vomiting. Awaiting ID recommendations. OBJECTIVE: Vitals: Temp (24hrs), Av ?C (98.6 ?F), Min:36.2 ?C (97.1 ?F), Max:37.9 ?C (100.3 ?F) BP 111/56 Pulse 104 Temp 36.9 ?C (98.5 ?F) (Oral) Resp 16 Ht 156.2 cm (5' 1.5") Wt 61.4 kg (135 lb 5.8 oz) SpO2 96% BMI 25.17 kg/m? O2 Therapy: Room Air IANDO: Date 01/07/25699 - 01/08/2565801/08/25699 - 01/09/25 0659 Shift 9063-9822 9925-8085 4426-2891 24 Hour Total 0656-7855 0208-5389 8152-2704 24 Hour Total INTAKE PO 410 240 650 PO 410 240 650 Shift Total 410 240 650 OUTPUT Urine 650 0204 515 1204 Output ( Indwelling Urinary Catheter 01/02/25 0100 Villela 16 Fr) 650 6982 509 5850 # of BMs Number of BMs 1 x 1 x Shift Total 650 0261 545 8687 Weight (kg) 64.8 64.8 61.4 61.4 61.4 61.4 61.4 61.4 MEDICATIONS: Current Facility-Administered Medications Medication Dose Route Frequency iv contrast (radiology procedure) INTRAVENOUS DIRECTED PRN acetaminophen 1,000 mg tab(s) (TYLENOL) 1,000 mg ORAL TID budesonide, enteric coated 9 mg cap(s) (ENTOCORT EC) 9 mg ORAL DAILY metoprolol tartrate (short acting) 25 mg tab(s) (LOPRESSOR) 25 mg ORAL q 8 H vancomycin 125 mg oral liquid (VANCOCIN) 125 mg ORAL QID enoxaparin 30 mg injection (LOVENOX) 30 mg SUBCUTANEOUS q 12 HR therapeutic multivitamin-minerals tablet (THERA-M PLUS) 1 tablet ORAL DAILY melatonin 6 mg tab(s) 6 mg ORAL DAILY (8 PM) pantoprazole 40 mg injection (PROTONIX) 40 mg INTRAVENOUS BID AC (0600/1600) metoprolol 5 mg injection (LOPRESSOR) 5 mg INTRAVENOUS q 6 H PRN folic acid 1 mg tab(s) 1 mg ORAL DAILY lidocaine 4 % 2 patch (SALONPAS) 2 patch TRANSDERMAL DAILY And lidocaine patch - REMOVE OTHER AT BEDTIME And lidocaine - VERIFY PATCH OTHER q 8 H ipratropium-albuterol 3 mL nebulizer solution (DUONEB) 3 mL INHALATION q 6 H PRN cetirizine 10 mg tab(s) (ZYRTEC) 10 mg ORAL DAILY rosuvastatin 10 mg tab(s) (CRESTOR) 10 mg ORAL AT BEDTIME NaCl 0.9% iv flush bag 20 mL INTRAVENOUS PRN ondansetron 4 mg tab(s) (ZOFRAN) 4 mg ORAL q 6 H PRN Or ondansetron (PF) 4 mg injection (ZOFRAN) 4 mg INTRAVENOUS q 6 H PRN oxyCODONE IR 2.5-5 mg tab(s) (ROXICODONE) 2.5-5 mg ORAL q 4 H PRN thiamine 100 mg tab(s) (VITAMIN B1) 100 mg ORAL/FEEDING TUBE TID Labs: Recent Labs 01/08/25 0359 01/07/25 0433 NA 132* 132* K 3.1* 4.2 CHLOR 100 100 CO2 21* 17* BUN 6* 5* CREAT 0.59 0.50* GLUC 89 83 ANION 11 15 CA 8.5 8.5 MG 2.0 -- WBC 9.23 11.13* HB 8.4* 9.5* HCT 25.1* 27.9* PLT 414* 405* PHYSICAL EXAM: Genl: Appears age appropriate. No acute distress. Resting comfortably. Head/Face: Normocephalic. Atraumatic. Eyes: EOMI. Sclera not icteric, not injected Resp: Lung sounds are clear bilat. No wheezes. No rales. Breathing is non-labored on RA @ 95%. Left chest wall tenderness without crepitus. CVS: RRR as above; 2+ pulses at RA, DP, PT bilat. GI: Abdomen is soft, non-tender, not distended. Bowel sounds normoactive. No peritonitis. : Villela catheter draining clear, yellow urine. MSK: Extremities without clubbing, cyanosis, edema. Normal ROM x 4. Skin: Warm and dry. Not jaundiced. Moderately left forearm edema. Ecchymosis to left upper extremity. Scattered ecchymosis to right upper extremity. Ecchymosis to left chest, hip. Neuro: AANDOx2. Strength and sensation normal. BRAGA. Psych: Alert, awake, pleasant, conversant. ASSESSMENT AND PLAN: Assessment Active Hospital Problems Diagnosis Date Noted Pneumothorax 12/26/2024 Delirium 01/07/2025 Constipation 01/07/2025 DNR (do not resuscitate) discussion 01/07/2025 Frailty syndrome in geriatric patient 01/07/2025 Goals of care, counseling/discussion 01/07/2025 Neurodegenerative disorder 01/07/2025 Pain 01/07/2025 Renal cyst 01/04/2025 Malnutrition of mild degree (HCC) 01/03/2025 At risk for delirium 12/31/2024 Acute cystitis without hematuria 12/31/2024 Acute urinary retention 12/31/2024 Hypokalemia 12/31/2024 Hyponatremia 12/31/2024 SVT (supraventricular tachycardia) ([facility]) 12/31/2024 Hypophosphataemia 12/31/2024 Posttraumatic respiratory insufficiency 12/27/2024 Fall 12/26/2024 Closed fracture of multiple ribs of left side 12/26/2024 Hemopneumothorax on left 12/26/2024 Alcohol use 12/26/2024 Type 2 diabetes (HCC) 12/26/2024 Chronic IBS (irritable bowel syndrome) 12/26/2024 Chronic History of stroke 2013 Chronic History of cholecystectomy 2008 Chronic Assessment: 79-year old female s/p mechanical fall on 12/26/24 (Trauma transfer from [place]) Imaging performed: CT HNCAP ([place] [facility], 12/26) CXR, XR left elbow/forearm (12/26) CXR x 2 (12/27) CXR x 3, CTA chest, CTAP (12/28) CXR (12/29) CXR (12/30) CXR (12/31) CT brain, CXR x 2, KUB (01/01) CXR (01/02) CXR (01/03) CXR (01/04) DVT US BUE (01/05) CT CAP (01/07) Traumatic Injuries: Left 6-9 rib fractures with associated hemopneumothorax and subcutaneous emphysema Left elbow contusion with small skin tear Operations/Procedures: 1. 12/27/2024 - Left chest tube inserted 2. 12/28/2024 - Left subclavian CVC (removed 12/30) Care Plan: Left rib fractures with hemopneumothorax S/p left chest tube insertion 12/27/24 CT to water seal 12/28, removed 01/01 CXR (01/04): Persistent left lung base focal opacity CT chest (01/07): Trace left pleural effusion Respiratory status stable on RA Aggressive pulmonary hygiene Multimodal pain control Mobilize as tolerated ETOH abuse, delirium Patient reports daily wine consumption 3-4 glasses Received Phenobarbital and Ativan at [facility] and during transfer Phenobarb taper discontinued 2/2 sedation CIWA protocol Continue Thiamine, Folate Social work consult Discontinue Seroquel due to drowsiness Continue Melatonin at HS Acute urinary retention Villela inserted 12/28 due to high volume retention Villela catheter removed 12/31 and void trial initiated Required straight catheterization x 1 due to continued retention on 01/01 Villela catheter reinserted 01/02 due to high volume retention Urology consulted, appreciate recommendations Per urology: Consider formal urology driven void trial prior to discharge if milestones of mentation at baseline, improvement in ambulation, and having regular bowel movements are met Leukocytosis WBCs 8.4 -> 11.1 -> 9.2 Febrile- 37.9 C, HDS Respiratory status stable on RA Blood cultures (12/28): NGTD UA (12/28): +WBCs, leuks UC (12/28): +E.Coli Repeat UA (01/01): +WBCs, leuks Received Zosyn x 7 days for UTI (12/28-12/31 and (01/02-01/06) C.diff PCR (01/02): Positive C.diff EIA (820): Negative Continue PO Vancomycin QID (01/03-01/12) CT CAP (01/07): Interval development of abnormal asymmetric enlargement of the left psoas muscle with central area of hypodensity measuring 2 cm. This finding is concerning for possible myositis and developing abscess. ID consulted, appreciate recommendations Trend daily CBC SVT Patient with episodes of SVT necessitating IV Metoprolol for conversion to SR ECHO (01/02): EF 60%, mild concentric LVH, LV/RV function normal, mild 1+-2+ AV regurg PO Metoprolol increased from 12.5 mg TID to 25 mg TID on 01/07/25 for intermittent intervals of SVT PRN IV Metoprolol 5 mg every 6 hours for HR > 120 Continuous cardiac monitoring Monitor electrolytes and supplement as needed Acute blood loss anemia, ?UGIB- Stable Hgb 8.0 -> 9.5 -> 8.4 +Tarry stool x 1 on 01/02/25 Likely in setting of NSAID administration with history of IBD Resume DVT chemoprophylaxis; if Hgb continues to decrease, consult GI Continue Pantoprazole BID Transfuse for Hgb < 7.0 or for signs of bleeding Trend daily CBC Geriatrics consulted, appreciate recommendations Continue home medications as ordered Current diet order: DIET FOOD CONSISTENCY CONTROLLED Pain regimen: Scheduled Tylenol, Lidocaine patch; PRN Oxycodone, Robaxin Bowel regimen: None Labs: As above PPX: DVT: Lovenox 30 mg BID, SCDs, mobilize Ulcer: Pantoprazole BID Vit D level if > 65 yo: 46.4 Consulted Services: SICU ID Geriatrics PT/OT Social work Dispo Planning: PT/OT recommend SNF. Case management following. Incidentals: None Follow Up Needs: PCP Staff Trauma Surgeon: Dr. Phillips SIGNATURE: Christie Neil APRN.CNP PATIENT NAME: Cristino Verdugo DATE: 01/08/2025 TIME: 12:02 PM Pager: see below Trauma Service Pager: For questions or concerns Mon-Fri 6a-5p please page [phone]. After 5pm and on Weekends and Holidays, please page [phone] if in ICU or [phone] if on RNF. INPATIENT ATTENDING: Dr. Phillips High-Risk Geriatric Patient Vulnerabilities: Impaired Cognition, Impaired Functional Status, and Malnutrition Diet: DIET FOOD CONSISTENCY CONTROLLED Recommendations: Cognition: Impaired Cognition (Consult Geriatrics) bCAM Score (Calc): Positive Delirium Screen Confusion Assessment Method (CAM - ICU Score): (!) Positive Geriatric Consult (Age over 85 or impaired cognition):Consult to [employer] Palliative Care/Hospice: Consult not required Rehab/Therapy: PT/OT Recommendations: PT: Recommended Discharge Disposition: Subacute/SNF OT: Recommended Discharge Disposition: Subacute/SNF Swallow: Swallow Screening Result - Step 2: PASSED Swallow Screen - Patient Able To Swallow 3 Ounce Cup of Water Without Exhibiting Signs Of Aspiration Speech Recommendations: Speech: Recommended Discharge Disposition: Continued Skilled Speech Therapy Speech Diet: Diet Recommendations: Soft and Bite-Sized IDDSI Level 6, Thin Liquids IDDSI Level 0 Nutrition: Consult to Nutrition Therapy Nutrition Recommendations: MST: Total MST Score (Calculated): 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 diet Supplements: [employer] 1.4, [employer] 1.0 (allergy to milk products.) Refer to: Speech/Language (eval to ensure diet appropriate for pt give confusion.) Vitamins and Minerals: Multivitamin with minerals Medications: Appetite stimulants Discharge Recommendations: Diet, Oral Supplements Diet: regular vs [employer] Oral Supplements: high mike/protein supplement/snack of choice 2-3x/day between meals Pharmacy: Consult not needed Social Work: NA Anticipated Discharge Disposition: Fdc Facility THERAPY NT Observed: 01/08/2025 11:58 AM Status: COMPLETED Source: [facility] HNO ID: [id number] Author: TRACY REVELES PT Service: Physical Therapy Author Type: Physical Therapist Type: Therapy (PT/OT/Speech/Resp) Filed: 01/08/2025 12:01 Note Text: Physical Therapy Evaluation Summary SERVICE DATE: 01/08/2025 SERVICE TIME: 1027 to 1050 ROOM: [place] [address] PT 6 Clicks Score: 16 DISCHARGE RECOMMENDATIONS Subacute/SNF Recommended Discharge Disposition Comments: Fall risk and poor activity tolerance ASSESSMENT Response to Therapy Interventions: Good Participation in Activities, Improved Tolerance for Activity Pt demonstrates some progress with increased distance with ambulation. Today she was able to 40 feet with min A and use of a walker. She also completed LE strengthening exercises. While she is [id number], she does demonstrate confusion and at times has some difficulty with command follow and demonstrates reduced safety awareness. Continue with recommendation for SNF upon DC. PRECAUTIONS Fall Risk, Bed/Chair Alarm CURRENT HOSPITAL COURSE Patient had a fall was transferred from [place] [address] admitted to the ICU has rib fractures on the left side hemopneumothorax emphysema chest tube.INFORMATION SECURITY on 12/31/24 for suspected SVT with HR in 180s. Increase in delirium. Relevant Past Medical History: etoh abuse, fibro HOME LIVING Patient Lives With: Family (son) Assistance Available: Other: See Comment Comments: 2 Equipment Owned: Walker- Wheeled PRIOR FUNCTIONAL LEVEL Within Functional Limits indep at home no AD lives with son SUBJECTIVE Agreeable to PT. THERAPY DIAGNOSIS Reduced mobility-other, Muscle Weakness (generalized), Unsteadiness on feet TREATMENT INTERVENTIONS Therapeutic Exercise (50054), Gait Training (98231) Timed Code Treatment (minutes): 23 Skilled Treatment Time (minutes): 23 Therapeutic Exercise (77282) Treatment Minutes: 10 $ Therapeutic Exercise (05774) Billed Units: 1 unit Exercise Ankle Pumps (number of reps): 15 Heel Slides (number of reps): 5 LAQ (number of reps): 10 SLR (number of reps): 5 Hip Abduction (number of reps): 5 Gait Training (53069) Treatment Minutes: 13 $ Gait Training (90051) Billed Units: 1 unit Skilled Intervention(s): Instruction in sit to stand technique with proper hand placement and body positioning at edge of the bed, pushing from mattress with one hand on the walker and one hand on the bed and tucking feet back to stand with nose over toes. Instruction in stand to sit technique with LE's touching the bed, reaching back for the mattress or bedrail and slowly sitting. Instruction in use of equipment, cues for sequence and pattern with the walker. Cued to keep it closer and to stand up tall and look up not at the floor. And to keep hands on the walker at all times. TRAINING AND EDUCATION PROVIDED Assistive Device Use, Bed Mobility, Benefits of In-Hospital Mobility, Exercise Program, Falls Prevention, Gait Pattern, Reduction of Deviations, Positioning, Pre-gait Activities, Role of Physical Therapy, Sitting Balance, Standing Balance, Transfers THERAPEUTIC SKILLS USED Activity Dosing, Cuing Tactile, Cuing Verbal, Cuing Visual, Physical Assist, Muscle Activation Facilitation, Movement Facilitation FUNCTIONAL STATUS mobility performed during session in bold, other mobility completed during prior session and may no longer be correct or appropriate to complete. Bed Mobility Supine To Sit: Moderate Assistance, Additional Information assist required for trunk management, guiding support to bring LE's to the side of the bed for improved command follow Sit to Supine: Minimal Assistance, Additional Information light assist to bring LE's over the side of the bed Scooting: Minimal Assistance Transfers Sit To Stand: Minimal Assistance, Additional Information assist to boost to standing, cues for hand placement Stand To Sit: Minimal Assistance, Additional Information assist to control descent to sitting, requires cues and assist for walker management to turn and back up to the bed as she was just backing up parallel to the bed and unsure if pt was going to turn to back up to the bed or not Bed to Chair Gait Minimal Assistance, Additional Information Cues for appropriate proximity to FWW- pt often too far behind walker. light assist for balance. Gait Device: Wheeled Walker General Deviations/Observations: Rakel decreased, Improper distancing from assistive device, Difficulty changing direction/turning, Non-functional gait speed, Step length decreased Gait Distance (feet): 40 Stairs BALANCE Static Sitting Balance: Good Dynamic Sitting Balance: Fair Static Standing Balance: Fair Dynamic Standing Balance: Fair GOALS Able to Perform HEP with: Independent Transfer Supine to/from Sit with: Independent Transfer Sit to/from Stand with: Independent Ambulate with: Independent Distance: 50 Device: Wheeled Walker Rehab Potential: Fair Progress Toward Goals: Progressing as expected ACUTE CARE TREATMENT PLAN PT Frequency: 3 Times Per Week (1-3) Treatment Interventions: Education, Strengthening, Functional Mobility Training, Balance Training SIGNATURE: Tracy Reveles PT PATIENT NAME: Cristino Verdugo DATE: January 08, 2025 TIME: 11:58 AM CASE MANAGEM Observed: 01/08/2025 10:48 AM Status: COMPLETED Source: [facility] HNO ID: [id number] Author: SHAVONNE MEIER RN Service: Care Management Author Type: Registered Nurse Type: Care Mgt Progress Note Filed: 01/08/2025 10:49 Note Text: CARE MANAGEMENT PROGRESS NOTE SERVICE DATE: 01/08/2025 SERVICE TIME: 10:48 AM LOS: 13 days IMM Follow Up Copy Given: Yes Copy given to:: Patient Tv Host Tv Host Name/Relationship: PANKAJ VERDUGO [phone] Method: By Phone Verbalizes understanding SIGNATURE: Shavonne Meier RN PATIENT NAME: Cristino Verdugo DATE: January 08, 2025 TIME: 10:48 AM THERAPY NT Observed: 01/08/2025 9:41 AM Status: COMPLETED Source: [facility] HNO ID: [id number] Author: REGINE LONDON OTR/L Service: Occupational Therapy Author Type: Occupational Therapist Type: Therapy (PT/OT/Speech/Resp) Filed: 01/08/2025 09:44 Note Text: Occupational Therapy Treatment Summary SERVICE DATE: 01/08/2025 SERVICE TIME: 913 ROOM: [place] [address] OT 6 Clicks Score: 15 DISCHARGE RECOMMENDATIONS Subacute/SNF Recommended Discharge Disposition Comments: patient not at functional baseline. Recommended Discharge Disposition Due to: ADL impairment, Patient requires daily (5x/week) skilled therapy at next level of care., Cognitive deficits new/worsened ASSESSMENT Response to Therapy Interventions: Good Participation in Activities, Slow Progression with ADLs/IADLs, Slow Progression with Functional Activities/Skills, Cognitive Deficits Pt with breakfast tray in place at bed level; agreeable to out of bed in chair for breakfast. Pt requires mod assist overall for bed mobility, somewhat impulsive, requires handheld assist to transfer from chair. Able to manage tray once set up at chair level; declines further ADLs at this time. Will continue to progress as able. RN in room at end of session. PRECAUTIONS Fall Risk, Bed/Chair Alarm CURRENT HOSPITAL COURSE Patient had a fall was transferred from [place] [address] admitted to the ICU has rib fractures on the left side hemopneumothorax emphysema chest tube.INFORMATION SECURITY on 12/31/24 for suspected SVT with HR in 180s. Increase in delirium. Relevant Past Medical History: etoh abuse, fibro HOME LIVING Patient Lives With: Family (son) Assistance Available: Other: See Comment Comments: 2 Equipment Owned: Walker- Wheeled PRIOR FUNCTIONAL LEVEL Within Functional Limits indep at home no AD lives with son SUBJECTIVE awake, agreeable to OT session COGNITION Orientation Deficits: Not oriented to Time Responsiveness: Awake, Alert Follows Commands: 2-step Commands, Cueing Needed Cueing to Follow Commands: Moderate Attention Deficits: Divided Executive Function Deficits: Sequencing, Insight to Deficits, Problem Solving, Safety Awareness Confusion Assessment Method (CAM - ICU Score): (!) Positive (01/04/25) 4AT Score: (!) 8 (01/04/25) Delirium Positive/Negative: Positive (01/04/25) THERAPY DIAGNOSIS Reduced mobility-other, Decreased activities of daily living (ADL), Muscle Weakness (generalized), Unsteadiness on feet, General symptoms and signs-other, Signs and Symptoms Involving Cognitive Functions and Awareness TREATMENT INTERVENTIONS Self Intermediate Management (93200) Timed Code Treatment (minutes): 11 Skilled Treatment Time (minutes): 11 Self Intermediate Management (06085) Treatment Minutes: 11 $ Self Intermediate Management ([id number]) Billed Units: 1 unit TRAINING AND EDUCATION PROVIDED Role of Occupational Therapy, Expected Functional Level, Discharge Planning, Lower Extremity Dressing, Safety/Judgment THERAPEUTIC SKILLS USED Activity Dosing, Cues for Sequencing/Proper Technique for Activity, Physical Assist, Therapeutic Use of Self, Movement Facilitation FUNCTIONAL STATUS in bold Activities of Daily Living Assist Level Additional Information Feeding Set Up Grooming Contact Guard Assistance Bathing Upper Body Minimal Assistance Bathing Lower Body Maximal Assistance Dressing Upper Body Minimal Assistance Dressing Lower Body Maximal Assistance Toileting Moderate Assistance Mobility Assist Level Additional Information Bed Mobility Supine To Sit: Moderate Assistance, Additional Information requires assist with LLE Sit to Stand Minimal Assistance Stand to Sit Minimal Assistance Bed to Chair Minimal Assistance Bed To Chair Transfer Type: Stepping Bed To Chair Transfer Equipment: (moves before walker set up; requires handheld assist to chair) Toilet/Commode Minimal Assistance Shower Functional Mobility Minimal Assistance, Additional Information Functional Mobility Device: Wheeled Walker GOALS Grooming with: Set Up Upper Body Bathing with: Stand By Assistance Upper Body Dressing with: Stand By Assistance Lower Body Bathing with: Contact Guard Assistance Lower Body Dressing with: Contact Guard Assistance Toilet Hygiene with: Supervision Chair Transfer with: Supervision Toilet Transfer with: Supervision Tolerate (minutes of functional activity): 30 Functional Activity with: Supervision Demonstrate Competence with Education with: Supervision (safety, fall prevention) Increased Awareness of Cognitive Impairments as Related to ADL's/IADL's: Verbalized, Demonstrated Rehab Potential: Good Progress Toward Goals: Progressing as expected ACUTE CARE TREATMENT PLAN OT Frequency: 2 Times Per Week Treatment Interventions: Education, Self Care/Home Management, Energy Conservation Training, Strengthening, Functional Mobility Training, Balance Training, Cognitive Training Plan for Next Visit: Bathing Training, Dressing Training SIGNATURE: Regine London OTR/L PATIENT NAME: Cristino Verdugo DATE: January 08, 2025 TIME: 9:41 AM CASE MANAGEM Observed: 01/08/2025 9:18 AM Status: COMPLETED Source: [facility] HNO ID: [id number] Author: SHAVONNE MEIER RN Service: Care Management Author Type: Registered Nurse Type: Care Mgt Progress Note Filed: 01/08/2025 16:00 Note Text: CARE MANAGEMENT PROGRESS NOTE SERVICE DATE: 01/08/2025 SERVICE TIME: 9:18AM LOS: 13 days Auth obtained for [facility]. Per [employer] awaiting final ID recommendations. 7000 complete. Will need managed transport. Called and updated son Pankaj. CM to follow for transitional needs SIGNATURE: Shavonne Meier RN PATIENT NAME: Cristino Verdugo DATE: January 08, 2025 TIME: 3:59 PM CONSULT Observed: 01/08/2025 8:51 AM Status: COMPLETED Source: [facility] HNO ID: [id number] Author: BRENDA HOPKINS III, MD Service: Infectious Disease Author Type: Physician Type: Consults Filed: 01/08/2025 21:12 Note Text: ID CONSULTATION NOTE PATIENT NAME: Cristino Verdugo REASON FOR CONSULTATION: Suspected left psoas abscess LOS: 13 days Subjective HPI 79-year-old male with PMH most relevant of the following medical conditions: -DM type 2 -CVA -IBS Patient was admitted on after a fall leading to multiple rib fractures and left hemopneumothorax. Additionally, patient was also managed for alcohol withdrawal. Over the course of hospital stay, patient patient developed urinary retention leading to [place]la catheter insertion. He received IV Zosyn from 12/28/24 to 01/06/25 for management of UTI due to E coli. Patient also tested positive for C diff PCR but negative for EIA. Patient is being treated with oral vancomycin since 01/03/2025. On 01/07/2025, patient had a CT abdomen which showed suspected 2 cm left psoas muscle developing abscess for which ID has been consulted Patient has been afebrile and hemodynamically stable otherwise. She does not report any pain in lower back. No other new symptoms She does report pain in the left thigh. Worse with movement. Had difficulty shifting positions in bed due to the pain. Localizes pain to center of thigh. Labs reviewed: WBC 9.23 Objective OBJECTIVE BP 111/56 Pulse 104 Temp 36.9 ?C (98.5 ?F) (Oral) Resp 16 Ht 156.2 cm (5' 1.5") Wt 61.4 kg (135 lb 5.8 oz) SpO2 96% BMI 25.17 kg/m? Temp (24hrs), Av.9 ?C (98.5 ?F), Min:36.2 ?C (97.1 ?F), Max:37.9 ?C (100.3 ?F) Body mass index is 25.17 kg/m?., No results found for: "HBA1C" Intake/Output Summary (Last 24 hours) at 01/08/2025 0851 Last data filed at 01/08/2025 0640 Gross per 24 hour Intake 650 ml Output 2300 ml Net -1650 ml Physical Exam Constitutional: General: She is not in acute distress. Appearance: She is ill-appearing. Cardiovascular: Rate and Rhythm: Normal rate. Heart sounds: Normal heart sounds. No gallop. Pulmonary: Effort: No respiratory distress. Breath sounds: Normal breath sounds. No wheezing or rales. Abdominal: General: There is no distension. Tenderness: There is no abdominal tenderness. Musculoskeletal: Right lower leg: No edema. Left lower leg: No edema. Comments: Mild lower back tenderness Skin: Capillary Refill: Capillary refill takes less than 2 seconds. Neurological: General: No focal deficit present. Mental Status: She is oriented to person, place, and time. Tenderness on my exam is more along the iliac crest and in the flank. She did not have any increase pain with flexion or extension of the left hip or flexion and extension of the leg. LABORATORY: CBC: Recent Labs 01/08/25 0359 01/07/25 0433 01/06/25 0638 01/05/25 0512 01/04/25 0926 01/04/25 0125 01/03/25 0359 01/02/25 1046 WBC 9.23 11.13* 8.42 9.83 9.18 8.02 8.21 9.16 HB 8.4* 9.5* 8.0* 8.5* 8.1* 7.5* 8.4* 9.2* HCT 25.1* 27.9* 23.7* 25.2* 24.8* 23.2* 26.2* 26.9* PLT 414* 405* 347 366 263 258 253 212 MCV 105.0* 104.9* 104.9* 103.7* 108.3* 106.9* 104.0* 104.7* RDWCV 13.8 13.4 13.4 13.1 13.4 13.2 12.7 13.0 COAG: No results for input(s): "APTT", "INR" in the last 168 hours. CMP: Recent Labs 01/08/25 0359 01/07/25 0433 01/06/25 1546 01/06/25 0638 01/05/25 0512 01/04/25 0125 01/03/25 0359 01/02/25 0414 01/01/25 2213 GLUC 89 83 93 85 79 76 84 93 97 NA 132* 132* 134* 134* 133* 133* 133* 135* 135* K 3.1* 4.2 2.9* 2.7* 3.4* 3.5* 3.7 3.9 4.0 CHLOR 100 100 101 103 101 102 100 104 104 CO2 21* 17* 21* 18* 19* 21* 19* 19* 20* ANION 11 15 12 13 13 10 14 12 11 BUN 6* 5* 5* 6* 7 10 10 13 15 CREAT 0.59 0.50* 0.61 0.63 0.74 0.86 0.72 0.61 0.59 MG 2.0 -- -- -- -- -- -- -- 1.9 URINALYSIS: Recent Labs 01/01/25 1130 SPGR 1.039* UGLUC Negative UBILI 1+* UKET 1+* UHB 3+* UPROT 1+* UWBC 6-10 /HPF* Cardiac:No results for input(s): "CKTEST", "CKMB", "CKMBP", "TROPONIN", "BNP" in the last 168 hours. Microbiology: Positive Micro-30 Days Procedure Component Value Units Date/Time Bacterial Culture, Urine [[id number]] (Abnormal) (Susceptibility) Collected: 12/28/24 3981 Order Status: Completed Specimen: Urine, [place] Catheter Updated: 12/30/24822 Culture, Urine 50,000-<100,000 CFU/ml Escherichia coli Susceptibility Escherichia coli MINIMUM INHIBITORY CONCENTRATION ([place]) Ampicillin Susceptible Ampicillin/Sulbact Susceptible Aztreonam Susceptible Cefazolin Susceptible [1] Cefepime Susceptible Ceftriaxone Susceptible Ciprofloxacin Susceptible Ertapenem Susceptible Gentamicin Susceptible Meropenem Susceptible Nitrofurantoin Susceptible Piperacillin/Tazobac Susceptible Trimeth sulfameth Susceptible [1] For uncomplicated urinary tract infections, cefazolin results can be used to predict susceptibility or resistance to cephalexin. MEDICATIONS: IV infusions: Scheduled medications:potassium chloride ER, 40 mEq, ONCE potassium chloride, 20 mEq, q 1 H acetaminophen, 1,000 mg, TID budesonide, enteric coated, 9 mg, DAILY metoprolol tartrate (short acting), 25 mg, q 8 H vancomycin, 125 mg, QID enoxaparin, 30 mg, q 12 HR multivitamin with minerals, 1 tablet, DAILY melatonin, 6 mg, DAILY (8 PM) pantoprazole, 40 mg, BID AC (0600/1600) folic acid, 1 mg, DAILY lidocaine, 2 patch, DAILY And lidocaine patch - REMOVE, , AT BEDTIME And lidocaine - VERIFY PATCH, , q 8 H cetirizine, 10 mg, DAILY rosuvastatin, 10 mg, AT BEDTIME thiamine, 100 mg, TID PRN:iv contrast, , DIRECTED PRN metoprolol, 5 mg, q 6 H PRN ipratropium-albuterol, 3 mL, q 6 H PRN NaCl 0.9%, 20 mL, PRN ondansetron, 4 mg, q 6 H PRN Or ondansetron (PF), 4 mg, q 6 H PRN oxyCODONE IR, 2.5-5 mg, q 4 H PRN IMAGING: CT ABD/PEL W IVCON Final Result Abnormal IMPRESSION: 1. Since the previous study of 10 days ago, there has been the interval development of abnormal asymmetric enlargement of the left psoas muscle with a central area of hypodensity measuring 2 cm. The finding is concerning for possible myositis and developing abscess. Hematoma is a less likely consideration. 2. Possible 1 cm solid left renal nodule. MRI kidneys with and without IV contrast recommended. COMMUNICATION: Communicated with Wolfgang Delgado on 01/07/2025 11:45 AM via verbal communication. ACTIONABLE RESULT: FOLLOW-UP Acuity: Actionable Findings: Kidneys/Ureters/Bladder Routing Code: GU_1 Recommendation: MRI KIDNEY WO/W IVCON Time Frame: At the discretion of the clinical team. COMMUNICATION: Results will be communicated with the ordering provider via [employer] staff message or phone message by [employer] within 2 business days of report finalization. --END OF FINDING-- Cloud Subject Matter Expert: ANA Transcribe Date/Time: Jan 07 2025 11:30A Dictated by : MARAH MADSEN MD This examination was interpreted and the report reviewed and electronically signed by: MARAH MADSEN MD on Jan 07 2025 11:46AM EST CT CHEST W IVCON Final Result IMPRESSION: 1. No pneumothorax. 2. Trace left pleural effusion. 3. Minor scattered areas of linear atelectasis or scarring bilaterally. Cloud Subject Matter Expert[facility] Transcribe Date/Time: Jan 07 2025 11:20A Dictated by : MARAH MADSEN MD This examination was interpreted and the report reviewed and electronically signed by: MARAH MADSEN MD on Jan 07 2025 11:29AM EST US DVT UPPER LEFT Final Result IMPRESSION: Negative study for DVT in the left upper extremity. Negative study for superficial thrombophlebitis in the visualized segments of the left upper extremity. Cloud Subject Matter Expert: PSCB Transcribe Date/Time: Jan 06 2025 9:25A Dictated by : YAN CARPIO DO This examination was interpreted and the report reviewed and electronically signed by: YAN CARPIO DO on Jan 06 2025 9:27AM EST XR CHEST 1V FRONTAL Final Result IMPRESSION: Stable chest. Cloud Subject Matter Expert: PSCB Transcribe Date/Time: Jan 04 2025 7:20A Dictated by : CORTNEY MORENO MD This examination was interpreted and the report reviewed and electronically signed by: CORTNEY MORENO MD on Jan 04 2025 7:26AM EST XR CHEST 1V FRONTAL Final Result IMPRESSION: No significant change. Cloud Subject Matter Expert: PSCB Transcribe Date/Time: Jan 03 2025 7:52A Dictated by : KEVIN NORRIS MD This examination was interpreted and the report reviewed and electronically signed by: KEVIN NORRIS MD on Jan 03 2025 7:53AM EST XR CHEST 1V FRONTAL Final Result IMPRESSION: Persistent left basilar opacity suggesting atelectasis. Blunted extreme left lateral costophrenic angle suggesting trace effusion.. Cloud Subject Matter Expert: PSCB Transcribe Date/Time: Jan 02 2025 7:12A Dictated by : AMELIE POLLACK MD This examination was interpreted and the report reviewed and electronically signed by: AMELIE POLLACK MD on Jan 02 2025 7:16AM EST XR CHEST 1V FRONTAL Final Result IMPRESSION: No acute radiographic abnormality. Cloud Subject Matter Expert: PSCB Transcribe Date/Time: Jan 01 2025 11:09P Dictated by : JEFFREY GONZALEZ MD This examination was interpreted and the report reviewed and electronically signed by: JEFFREY GONZALEZ MD on Jan 01 2025 11:11PM EST XR ABDOMEN 1V SUPINE Final Result IMPRESSION: No dilated bowel Cloud Subject Matter Expert: PSCB Transcribe Date/Time: Jan 01 2025 1:34P Dictated by : ZAKI JOVEL MD This examination was interpreted and the report reviewed and electronically signed by: ZAKI JOVEL MD on Jan 01 2025 1:35PM EST XR CHEST 1V FRONTAL Final Result IMPRESSION: Stable exam Cloud Subject Matter Expert: PSCB Transcribe Date/Time: Jan 01 2025 9:22A Dictated by : ZAKI JOVEL MD This examination was interpreted and the report reviewed and electronically signed by: ZAKI JOVEL MD on Jan 01 2025 9:23AM EST CT BRAIN WO IVCON Final Result IMPRESSION: No acute intracranial abnormality. Cloud Subject Matter Expert: PSCB Transcribe Date/Time: Jan 01 2025 3:17A Dictated by : SRINATH ARGUETA MD This examination was interpreted and the report reviewed and electronically signed by: SRINATH ARGUETA MD on Jan 01 2025 3:20AM EST XR CHEST 1V FRONTAL Final Result IMPRESSION: Similar left rib fractures and left thoracostomy catheter. No enlarging pneumothorax. Cloud Subject Matter Expert: PSCB Transcribe Date/Time: Dec 31 2024 11:54P Dictated by : KELLY DAMON MD This examination was interpreted and the report reviewed and electronically signed by: KELLY DAMON MD on Dec 31 2024 11:54PM EST XR CHEST 1V FRONTAL Final Result IMPRESSION: Decreased left basilar opacities. Cloud Subject Matter Expert: [facility] Transcribe Date/Time: Dec 31 2024 7:40A Dictated by : KEVIN NORRIS MD This examination was interpreted and the report reviewed and electronically signed by: KEVIN NORRIS MD on Dec 31 2024 7:41AM EST XR CHEST 1V FRONTAL Final Result IMPRESSION: Stable exam with atelectatic changes in both lung bases. Cloud Subject Matter Expert: [facility] Transcribe Date/Time: Dec 30 2024 7:30A Dictated by : REED ARAGON MD This examination was interpreted and the report reviewed and electronically signed by: REED ARAGON MD on Dec 30 2024 7:30AM EST XR CHEST 1V FRONTAL Final Result IMPRESSION: Stable exam with a left chest tube and left venous catheter remaining in situ. Cloud Subject Matter Expert: [facility] Transcribe Date/Time: Dec 29 2024 7:43A Dictated by : REED ARAGON MD This examination was interpreted and the report reviewed and electronically signed by: REED ARAGON MD on Dec 29 2024 7:45AM EST CTA CHEST (NONGATED) W IVCON PE Final Result IMPRESSION: 1. No CT evidence of pulmonary embolism. 2. Left chest tube with trace left-sided pneumothorax. 3. Multiple left-sided rib fractures as described above. 4. No acute CT findings in the abdomen or pelvis. Cloud Subject Matter Expert: [facility] Transcribe Date/Time: Dec 28 2024 11:58P Dictated by : KATTY STRONG MD This examination was interpreted and the report reviewed and electronically signed by: KATTY STRONG MD on Dec 29 2024 12:28AM EST CT ABD/PEL W IVCON Final Result IMPRESSION: 1. No CT evidence of pulmonary embolism. 2. Left chest tube with trace left-sided pneumothorax. 3. Multiple left-sided rib fractures as described above. 4. No acute CT findings in the abdomen or pelvis. Cloud Subject Matter Expert: [facility] Transcribe Date/Time: Dec 28 2024 11:58P Dictated by : KATTY STRONG MD This examination was interpreted and the report reviewed and electronically signed by: KATTY STRONG MD on Dec 29 2024 12:28AM EST XR CHEST 1V FRONTAL Final Result IMPRESSION: Left subclavian central line with tip in the SVC Left rib fractures. Bibasilar atelectasis versus scarring. Elevation of the right hemidiaphragm. Cloud Subject Matter Expert: [facility] Transcribe Date/Time: Dec 28 2024 7:58P Dictated by : RIZWAN MCLAIN MD This examination was interpreted and the report reviewed and electronically signed by: RIZWAN MCLAIN MD on Dec 28 2024 8:00PM EST XR CHEST 1V FRONTAL Final Result IMPRESSION: Largely stable appearance of the chest given differences in technique and positioning. Cloud Subject Matter Expert: PSCB Transcribe Date/Time: Dec 28 2024 4:40P Dictated by : VIDYA BUSTILLO MD This examination was interpreted and the report reviewed and electronically signed by: VIDYA BUSTILLO MD on Dec 28 2024 4:42PM EST XR CHEST 1V FRONTAL Final Result IMPRESSION: Stable appearance of the chest. Cloud Subject Matter Expert: [facility] Transcribe Date/Time: Dec 28 2024 6:52A Dictated by : RIZWAN RAMON MD This examination was interpreted and the report reviewed and electronically signed by: RIZWAN RAMON MD on Dec 28 2024 6:53AM EST XR CHEST 1V FRONTAL Final Result IMPRESSION: Stable appearance of the chest. Cloud Subject Matter Expert: PSCB Transcribe Date/Time: Dec 27 2024 6:51A Dictated by : RIZWAN RAMON MD This examination was interpreted and the report reviewed and electronically signed by: RIZWAN RAMON MD on Dec 27 2024 6:52AM EST XR CHEST 1V FRONTAL Final Result IMPRESSION: The previously seen small left apical pneumothorax is essentially resolved. Cloud Subject Matter Expert: [facility] Transcribe Date/Time: Dec 27 2024 5:22A Dictated by : JOSR MERRITT MD This examination was interpreted and the report reviewed and electronically signed by: JOSR MERRITT MD on Dec 27 2024 5:24AM EST XR ELBOW GENERAL 2V AP/LAT LEFT Final Result IMPRESSION: No acute osseous findings. Questionable elbow effusion. If pain persists follow-up with cross-sectional imaging can be obtained. Cloud Subject Matter Expert: PSCB Transcribe Date/Time: Dec 27 2024 7:58A Dictated by : ZAKI JOVEL MD This examination was interpreted and the report reviewed and electronically signed by: ZAKI JOVEL MD on Dec 27 2024 8:06AM EST XR FOREARM GENERAL 2V AP/LAT LEFT Final Result IMPRESSION: No acute osseous findings. Questionable elbow effusion. If pain persists follow-up with cross-sectional imaging can be obtained. Cloud Subject Matter Expert: ANA Transcribe Date/Time: Dec 27 2024 7:58A Dictated by : ZAKI JOVEL MD This examination was interpreted and the report reviewed and electronically signed by: ZAKI JOVEL MD on Dec 27 2024 8:06AM EST XR CHEST 1V FRONTAL Final Result IMPRESSION: Multiple left-sided rib fractures with small left pleural effusion and tiny left apical pneumothorax, better appreciated on prior CT. Cloud Subject Matter Expert: [facility] Transcribe Date/Time: Dec 26 2024 1:30P Dictated by : GILLIAN PHILLIPS DO This examination was interpreted and the report reviewed and electronically signed by: GILLIAN PHILLIPS DO on Dec 26 2024 1:34PM EST IR ABSCESS DRAIN PLACEMENT (AK) (Results Pending) Assessment AND Plan ASSESSMENT AND PLAN SUSPECTED LEFT PSOAS ABSCESS Patient is currently hemodynamically stable -Recommend IR guided drainage of possible abscess and culture of aspirate to guide antibiotics- aerobic and anaerobic culture ordered. -If cultures are positive, patient may need MRI spine to rule out osteomyelitis-typically with psoas abscess there is concomitant spine infection. If E. Coli then I would think the route is seeding via edward's plexus in setting of genitourinary infection. -Recommend avoiding IV antibiotics for now as long as patient is hemodynamically stable. If there is worsening of clinical status, Iv antibiotics with MRSA coverage can be initiated and also treating with ceftriaxone if sepsis. Otherwise will wait til culture back. C. Diff infection: Continue oral vancomycin x 10 days. If has to remain on long course of antibiotics for the possible psoas abscess then nicky de-escalate to prophylactic dose of vancomycin. ID will follow Plan of care discussed with: Dr. Hopkins SIGNATURE: Obed Veronica MD PATIENT NAME: Cristino Verdugo DATE: January 08, 2025 TIME: 8:51 AM PAGER#: Attending Note I evaluated the patient and personally participated in the robbins components. I agree with the resident's findings and plan with the following revisions and/or additions: additions and clarifications in bold italics. Signature: Brenda Hopkins III, MD Date: 01/08/2025 Time: 9:12 PM BAS METAB 1999 PNL SERPL Collected: 3:59 AM Status: F Source: [facility] Order Comment: Specimen Type : BLOOD SPECIMEN Ordering Facility: [facility] Address: [address] [place] [address] TYPE CODE TESTS RESULT OUT OF RANGE REFERENCE UNITS LAB 2345-7(LOINC) Glucose SerPl-mCnc 89 74-99 mg/dL Result Comment: The [place] Diabetes Association (ADA) provides guidance for cutoff values for fasting glucose and random glucose. The ADA defines fasting as no caloric intake for at least 8 hours. Fasting plasma glucose results between 100 to 125 mg/dL indicate increased risk for diabetes (prediabetes). Fasting plasma glucose results greater than or equal to 126 mg/dL meet the criteria for diagnosis of diabetes. In the absence of unequivocal hyperglycemia, results should be confirmed by repeat testing. In a patient with classic symptoms of hyperglycemia or hyperglycemic crisis, random plasma glucose results greater than or equal to 200 mg/dL meet the criteria for diagnosis of diabetes. Reference: Standards of Medical Care in Diabetes 2016, [place] Diabetes Association. Diabetes Care. 2016.39(Suppl 1). LAB 3094-0(LOINC) BUN SerPl-mCnc 6 Low 7-21 mg/dL LAB 2160-0(LOINC) Creat SerPl-mCnc 0.59 0.58-0.96 mg/dL LAB 2951-2(LOINC) Sodium SerPl-sCnc 132 Low 136-144 mmol/L LAB 2823-3(LOINC) Potassium SerPl-sCnc 3.1 Low 3.7-5.1 mmol/L LAB 2075-0(LOINC) Chloride SerPl-sCnc 100 98-107 mmol/L LAB 2028-9(LOINC) CO2 SerPl-sCnc 21 Low 22-30 mmol/L LAB 1863-0(LOINC) Anion Gap4 SerPl-sCnc 11 8-15 mmol/L LAB 34210-1(LOINC) Calcium SerPl-mCnc 8.5 8.5-10.2 mg/dL LAB 13385-8(LOINC) eGFRcr SerPlBld CKD-EPI 2020 93 >=60 mL/min/1. 73m??? Result Comment: Estimated Gl omerular Filtration Rate (eGFR) is calculated using the 2020 CKD-EPI creatinine equation. This equation utilizes serum creatinine, sex, and age as parameters. The creatinine assay has traceable calibration to isotope dilution-mass spectrometry. Refer to KDIGO guidelines for clinical interpretation. In patients with unstable renal function, e.g. those with acute kidney injury, the eGFR may not accurately reflect actual GFR. Performed By: #### 34885-6, 91438-6, 2276-4, 98834-5 #### [facility] CLIA [id number] [address] MAGNESIUM SERPL-MCNC Collected: 01/08/2025 3:59 AM S tatus: F Source: [facility] Order Comment: Specimen Type : BLOOD SPECIMEN Ordering Facility: [facility] Address: [address] [place] [address] TYPE CODE TESTS RESULT OUT OF RANGE REFERENCE UNITS LAB 18648-1(LOINC) Magnesium SerPl-mCnc 2.0 1.7-2.3 mg/dL Performed By: #### 92458-1, 77809-9, 6-4, 96372-1 #### [facility] CLIA [id number] [address] FERRITIN SERPL-MCNC Collected: 01/08/2025 3:[address] atus: F Source: [facility] Order Comment: Specimen Type : BLOOD SPECIMEN Ordering Facility: [facility] Address: [address] [place] [address] TYPE CODE TESTS RESULT OUT OF RANGE REFERENCE UNITS LAB 6-4(LOINC) Ferritin SerPl-mCnc 783.0 High 14.7-205.1 ng/mL Performed By: #### 96649-4, 22077-4, 2276-4, 12246-0 #### [facility] CLIA [id number] [address] [facility] IRON+TIBC PNL SERPL Collected: 01/08/2025 3:[address] atus: F Source: [facility] Order Comment: Specimen Type : BLOOD SPECIMEN Ordering Facility: [facility] Address: [address] [place] [address] TYPE CODE TESTS RESULT OUT OF RANGE REFERENCE UNITS LAB 2498-4(LOINC) Iron SerPl-mCnc 37 Low 41-186 ug/dL LAB 2500-7(LOINC) TIBC SerPl-mCnc 181 Low 232-386 ug/dL LAB 2502-3(LOINC) Iron Satn MFr SerPl 20.4 15.0-57.0 % Performed By: #### 37515-7, 98378-8, 2276-4, 00651-0 #### [facility] CLIA [id number] [address] CBC PNL BLD AUTO Collected: 01/08/2025 3:59 AM Statu s: F Source: [facility] Order Comment: Specimen Type : BLOOD SPECIMEN Ordering Facility: [facility] Address: [address] [place] [address] TYPE CODE TESTS RESULT OUT OF RANGE REFERENCE UNITS LAB 6690-2(INC) WBC # Bld Auto 9.23 3.70-11.00 k/uL LAB 789-8(INC) RBC # Bld Auto 2.39 Low 3.90-5.20 m/ uL LAB 718-7(LOINC) Hgb Bld-mCnc 8.4 Low 11.5-15.5 g/dL LAB 4544-3(LOINC) Hct VFr Bld Auto 25.1 Low 36.0-46.0 % LAB 787-2(LOINC) MCV RBC Auto 105.0 High 80.0-100.0 fL LAB 785-6(LOINC) MCH RBC Qn Auto 35.1 High 26.0-34.0 pg LAB 786-4(LOINC) MCHC RBC Auto-mCnc 33.5 30.5-36.0 g/dL LAB 02883-4(LOINC) RDW RBC-Rto 13.8 11.5-15.0 % LAB 777-3(LOINC) Platelet # Bld Auto 414 High 150-400 k/uL LAB 06236-6(LOINC) PMV Bld Auto 9.3 9.0-12.7 fL LAB 771-6(LOINC) nRBC # Bld Auto <0.01 <0.01 k/uL Performed By: #### 65811-4, 16854-4 #### [facility] CLIA [id number] [address] RETICS # Collected: 01/08/2025 3:59 AM Status: F Source: [facility] Order Comment: Specimen Type : BLOOD SPECIMEN Ordering Facility: [facility] Address: [address] [place] [address] TYPE CODE TESTS RESULT OUT OF RANGE REFERENCE UNITS LAB 4679-7(LOINC) Retics/100 RBC NFr 7.1 High 0.4-2.0 % LAB 76309-6(LOINC) Retics # 0.172 High 0.018-0.100 M/uL Performed By: #### 59324-7, 36436-8 #### [facility] CLIA [id number] [address] CNCO Observed: 01/08/2025 12:00 AM Status: COMPLETED Source: [facility] Letter Text NURSING PROG Observed: 01/07/2025 2:14 PM Status: COMPLETED Source: [facility] HNO ID: [id number] Author: ARLEEN DOLAN RN Service: Nursing Author Type: Registered Nurse Type: Nursing Progress Note Filed: 01/07/2025 14:15 Note Text: Event(s) / Intervention Note: PATIENT NAME: Cristino Verdugo Patient Location: [place] [address] [address] Room: [place] [address] The patient was observed having the following problems: svt on tele monitor heart rates 140-160's pt resting in chair denies any cp, sob or dizziness. The time of the event occurred at: 1313. The following intervention(s) were initiated: Christie Neil HISTORIC PRESERVATIONIST with Trauma notified 5mg IV lopressor medication given. . After the initiated interventions, the following observation(s) were made: nothing further noted. Will continue to observe and check with patient.. Pt resting heart rate 70-80's at 1400 CT ABD/PEL W IVCON Observed: 01/07/2025 10:44 AM Status: F Source: [facility] * * *Final Report* * * DATE OF EXAM: Jan 07 2025 10:44AM [facility] 0530 - CT ABD/PEL W IVCON / PROCEDURE REASON: Abdominal abscess/infection suspected * * * * Physician Interpretation * * * * EXAMINATION: CT ABDOMEN AND PELVIS WITH IV CONTRAST CLINICAL HISTORY: Abdominal pain, leukocytosis TECHNIQUE: CT of the abdomen and pelvis was performed using standard technique, scanning from just above the dome of the diaphragm to the symphysis pubis. MQ: CTAP_3 Contrast: IV: 100 ml of Omnipaque 350 Oral: 450 ml of Omni 240 10-25ml diluted with water CT Radiation dose: Integrated Dose-length product (DLP) for this visit = 536 mGy*cm. CT Dose Reduction Employed: Automated exposure control(AEC) and iterative recon COMPARISON: 12/28/2024. RESULT: Liver: No mass. Cirrhotic morphology. Biliary: No bile duct dilation. Gallbladder is absent. Spleen: No mass. No splenomegaly. Pancreas: No mass or duct dilation. Adrenals: No mass. Kidneys: There is a large simple cyst at the left upper pole again noted. A mid kidney parapelvic cyst is present. There is also a predominantly exophytic nodule arising from the anterolateral left lower pole on image 64 of series 2 measuring 11 mm. This has Hounsfield values of approximately 90-100, concerning for a potential solid lesion. Asymmetrically small/atrophic right kidney. GI tract: Moderate rectal stool. Distal colonic diverticulosis without diverticulitis. Small hiatal hernia. Lymph nodes: No abdominal or pelvic lymphadenopathy. Mesentery/Peritoneum: No ascites or mass. Retroperitoneum: No mass. Vasculature: Ectatic distal thoracic and abdominal aorta without aneurysmal enlargement. Extensive atherosclerosis is identified. Vasculature grossly appears patent. Pelvis: Urinary bladder collapsed around a Villela balloon. Bones/Soft Tissues: There is now shown to be an asymmetrically enlarged left psoas muscle with central hypodensity, concerning for potential abscess. The more focal area of fluid attenuation seen within the central portion of the muscle belly measures approximately 19 x 12 x 19 mm in transverse, AP and craniocaudal dimensions respectively. Mild infiltration of the surrounding fat. No acute bony abnormality. Lower thorax: A chest CT performed will be reported separately. Localizer images: No additional findings. IMPRESSION: 1. Since the previous study of 10 days ago, there has been the interval development of abnormal asymmetric enlargement of the left psoas muscle with a central area of hypodensity measuring 2 cm. The finding is concerning for possible myositis and developing abscess. Hematoma is a less likely consideration. 2. Possible 1 cm solid left renal nodule. MRI kidneys with and without IV contrast recommended. COMMUNICATION: Communicated with Wolfgang Delgado on 01/07/2025 11:45 AM via verbal communication. ACTIONABLE RESULT: FOLLOW-UP Acuity: Actionable Findings: Kidneys/Ureters/Bladder Routing Code: GU_1 Recommendation: MRI KIDNEY WO/W IVCON Time Frame: At the discretion of the clinical team. COMMUNICATION: Results will be communicated with the ordering provider via [employer] staff message or phone message by [facility] within 2 business days of report finalization. --END OF FINDING-- Cloud Subject Matter Expert: ANA Transcribe Date/Time: Jan 07 2025 11:30A Dictated by : MARAH MADSEN MD This examination was interpreted and the report reviewed and electronically signed by: MARAH MADSEN MD on Jan 07 2025 11:46AM EST [id number] ACTIONABLE CT CHEST W IVCON Observed: 01/07/2025 10:44 AM Status: F Source: [facility] * * *Final Report* * * DATE OF EXAM: Jan 07 2025 10:44AM [facility] 0539 - CT CHEST W IVCON / PROCEDURE REASON: Lung/mediastinal abscess * * * * Physician Interpretation * * * * EXAMINATION: CHEST CT WITH CONTRAST CLINICAL HISTORY: Shortness of breath Technique: Spiral CT acquisition of the chest from the thoracic inlet to the upper abdomen following IV contrast. MQ: CTCW_6 Contrast: 100 mL Omnipaque [address] Radiation dose: Integrated Dose-length product (DLP) for this visit = 536 mGy*cm CT Dose Reduction Employed: Automated exposure control(AEC) and iterative recon Comparison: 12/28/2024 RESULT: Limitations: None. Lines, tubes, and devices: Interval removal of left-sided chest tube. Lung parenchyma and airways: There is no pneumothorax visualized. Scattered bilateral linear areas of atelectasis and/or scarring. Small segment of atelectasis at the left posterior costophrenic sulcus. Defect from previous left-sided thoracostomy tube present within the lower lobe. No large airspace opacity. No endobronchial lesion. Pleural space: Trace left pleural effusion. Lower neck, lymph nodes, and mediastinum: The imaged thyroid gland is normal. No lymphadenopathy in the supraclavicular, axillary, mediastinal, or hilar regions. Heart, pericardium, and thoracic vessels: Normal cardiac size. No sizable pericardial effusion. There are aortic and coronary artery calcifications. Bones and soft tissues: Multiple left rib fractures are again identified. Mid thoracic compression fractures, status post kyphoplasty also again seen. Mild infiltration of the soft tissues of the left chest. Subcutaneous emphysema. Upper abdomen: Please see separate CT abdomen and pelvis report Localizer images: No additional findings. IMPRESSION: 1. No pneumothorax. 2. Trace left pleural effusion. 3. Minor scattered areas of linear atelectasis or scarring bilaterally. Cloud Subject Matter Expert: ANA Transcribe Date/Time: Jan 07 2025 11:20A Dictated by : MARAH MADSEN MD This examination was interpreted and the report reviewed and electronically signed by: MARAH MADSEN MD on Jan 07 2025 11:29AM EST [id number] ALLIED HEALTH Observed: 01/07/2025 10:38 AM Status: [facility]ED [id number] Author: FLORA ATSORGA RT(R) Service: Radiology Author Type: Technologist Type: Allied Health Filed: 01/07/2025 10:43 Note Text: Radiology Service Progress Note DATE OF SERVICE: January 07, 2025 TIME: 10:38 AM PATIENT IDENTITY VERIFICATION COMPLETED USING TWO (2) STANDARD IDENTIFIERS: Name and Date of confirmed by patient verbally and Name and Date of confirmed by identification band. FALL SCREENING: Has the patient had 2 falls in the last year or 1 fall with injury or currently using an Ambulatory Assistive Device (Walker, Cane, Wheelchair, Crutches, etc.)? Inpatient: Screened on floor PATIENT GENDER DATA: Assigned female at . status: : No status: NO. PATIENT RELEVANT IMPLANT DATA REVIEWED: Not Applicable PATIENT PRESENTS WITH AN IMPLANTABLE OR ATTACHED DOUPER: No ALLERGIES: Reviewed and unchanged CONTRAST ALLERGY: NO. EXAM: CT -CONTRAST INDUCED NEPHROPATHY RISK FACTORS: Patient age > 60 years CREATININE: Creatinine Date Value Ref Range Status 01/07/2025 0.50 (L) 0.58 - 0.96 mg/dL Final 01/06/2025 0.61 0.58 - 0.96 mg/dL Final 01/06/2025 0.63 0.58 - 0.96 mg/dL Final Estimated Glomerular Filtration Rate Date Value Ref Range Status 01/07/2025 97 >=60 mL/min/1.73m? Final Comment: Estimated Glomerular Filtration Rate (eGFR) is calculated using the 2020 CKD-EPI creatinine equation. This equation utilizes serum creatinine, sex, and age as parameters. The creatinine assay has traceable calibration to isotope dilution-mass spectrometry. Refer to KDIGO guidelines for clinical interpretation. In patients with unstable renal function, e.g. those with acute kidney injury, the eGFR may not accurately reflect actual GFR. P.O.C.T. RESULTS: N/A January 07, 2025 TREATMENT: N/A PERIPHERAL IV DATA: Inpatient - refer to LDA documentation RADIOLOGY DEPARTMENT: CT; Exam(s) Completed: Chest Abdomen Pelvis SIGNATURE: RT Memo(R) PATIENT NAME: Cristino Verdugo DATE: January 07, 2025 TIME: 10:38 AM CASE MANAGEM Observed: 01/07/2025 10:32 AM Status: COMPLETED Source: [facility] HNO ID: [id number] Author: SHAVONNE MEIER RN Service: Care Management Author Type: Registered Nurse Type: Care Mgt Progress Note Filed: 01/07/2025 10:33 Note Text: CARE MANAGEMENT PROGRESS NOTE SERVICE DATE: 01/07/2025 SERVICE TIME: 10:33 AM LOS: 12 days Auth is currently pending for [facility]. Updates sent to facility at this time. 7000 complete. Transport folder complete. CM to follow for transitional needs SIGNATURE: Shavonne Meier RN PATIENT NAME: Cristino Harding Kartik DATE: January 07, 2025 TIME: 10:32 AM CONSULT Observed: 01/07/2025 10:18 AM Status: COMPLETED Source: [facility] HNO ID: [id number] Author: VERONIKA FELIPE APRN.DESIGN TRANSFERRER Service: Geriatrics Author Type: Nurse Specialist Type: Consults Filed: 01/07/2025 12:59 Note Text: GERIATRIC SURGERY SERVICE CONSULT NOTE PATIENT NAME: Cristino Verdugo [id number] CONSULT TO GERIATRICS ([place]) Consult performed by: Veronika Felipe APRN.DESIGN TRANSFERRER Consult ordered by: Christie Neil APRN.HISTORIC PRESERVATIONIST Reason for consult: 79-year old fall with injuries, delirium HISTORY OF PRESENT ILLNESS: Cristino Verdugo is a 79 year old female with a past medical history of HTN, HLD, ETOH abuse, IBS, GERD, stroke 11 years ago who was admitted on 12/26/2024 for multiple falls previous night due to alcohol use (drinks 3-4 glasses of wine a day). Patient is a transfer from [facility], was brought to [facility] for evaluation. Imaging revealed L rib fractures 6-9 w hemopneumothorax. Patient has also developed concern for alcohol withdrawal, acute urinary retention, leukocytosis, cdiff, UTI, SVT, acute blood loss anemia. Patient was admitted under trauma, initially to SICU, now to [facility]. Urology consulted for urinary retention. Determined to be HIGH RISK for delirium with DEAR assessment. Positive BCAM noted. Patient is lethargic, hard to keep awake, up in chair, blinds open. Pleasant and cooperative when I could keep her awake. Able to state name, month, year. Does not appear to be hallucainting. Information was obtained from son Pankaj. Mentation- AANDO X3, family endorses concerns about memory Sensory impairment- Endorses vision impairment, wears glasses only for reading, wears corrective lenses. Endorses hearing impairment, does not have hearing aids. Home- Lives at home w son, needs some help in B-ADLs, needs some help in I-ADLs, still driving, denies tickets, accidents, or getting lost while driving, denies safety concerns at this time. Mobility- Denies any other falls within the last 6 months, does not use a mobility device Uses a N/A. Appetite- States appetite has been up and down, endorses 5-10lbs weight loss over the last 6 months, sometimes Ensure shakes at home Mood- stable mood Sleep- history of insomnia, uses a CPAP at night Hospitalizations- No other ED visits or hospital admissions noted within the last 6 months. Denies tobacco or illicit drug use. Positive ETOH, 3-4 glasses wine per day Per son--Patient does drink wine daily. Started with a glass or 2 but patient is now forgetful and will now drink a whole bottle because she forgets how much she drinks. Subjective PCP: No primary care provider on file. Past Medical History: PAST MEDICAL HISTORY Diagnosis Date GERD (Gastroesophageal Reflux Disease) HTN (Hypertension), Benign IBS (Irritable Bowel Syndrome) Past Surgical History: PAST SURGICAL HISTORY Procedure Laterality Date L'SCOPE DULCE MARIA W/CHOLANGIOGRAPHY 03-03-09 Family History: No family history on file. Social History: SOCIAL HISTORY[1] Medications: BOTH INPATIENT AND OUTPATIENT MEDICATIONS REVIEWED: Yes OARRS Check: PDMP website checked and validated. All prescriptions have been APPROPRIATELY filled. No suspicious activity was identified. 01/07/2025 by Veronika Felipe APRN.DESIGN TRANSFERRER Current Facility-Administered Medications Medication Dose Route Frequency NaCl 0.9% iv flush bag 20 mL INTRAVENOUS PRN ondansetron 4 mg tab(s) (ZOFRAN) 4 mg ORAL q 6 H PRN Or ondansetron (PF) 4 mg injection (ZOFRAN) 4 mg INTRAVENOUS q 6 H PRN oxyCODONE IR 2.5-5 mg tab(s) (ROXICODONE) 2.5-5 mg ORAL q 4 H PRN thiamine 100 mg tab(s) (VITAMIN B1) 100 mg ORAL/FEEDING TUBE TID folic acid 1 mg tab(s) 1 mg ORAL DAILY lidocaine 4 % 2 patch (SALONPAS) 2 patch TRANSDERMAL DAILY And lidocaine patch - REMOVE OTHER AT BEDTIME And lidocaine - VERIFY PATCH OTHER q 8 H ipratropium-albuterol 3 mL nebulizer solution (DUONEB) 3 mL INHALATION q 6 H PRN acetaminophen 1,000 mg tab(s) (TYLENOL) 1,000 mg ORAL q 8 H budesonide, enteric coated 9 mg cap(s) (ENTOCORT EC) 9 mg ORAL DAILY cetirizine 10 mg tab(s) (ZYRTEC) 10 mg ORAL DAILY rosuvastatin 10 mg tab(s) (CRESTOR) 10 mg ORAL AT BEDTIME methocarbamol 500 mg tab(s) (ROBAXIN) 500 mg ORAL TID PRN metoprolol tartrate (short acting) 12.5 mg tab(s) (LOPRESSOR) 12.5 mg ORAL q 8 H metoprolol 5 mg injection (LOPRESSOR) 5 mg INTRAVENOUS q 6 H PRN senna-docusate 8.6-50 mg 1 tablet (SENNA-S) 1 tablet ORAL BID PRN pantoprazole 40 mg injection (PROTONIX) 40 mg INTRAVENOUS BID AC (0600/1600) enoxaparin 30 mg injection (LOVENOX) 30 mg SUBCUTANEOUS q 12 HR therapeutic multivitamin-minerals tablet (THERA-M PLUS) 1 tablet ORAL DAILY melatonin 6 mg tab(s) 6 mg ORAL DAILY (8 PM) vancomycin 125 mg oral liquid (VANCOCIN) 125 mg ORAL QID iv contrast (radiology procedure) INTRAVENOUS DIRECTED PRN And enteric contrast (radiology procedure) ORAL DIRECTED PRN Allergies: Allergies As of Date: 12/26/2024 Allergen Noted Reaction PENICILLINS 03/11/2009 Fully Assessed 12/26/2024 Review of Systems Unable to perform ROS: Mental status change FUNCTIONAL EVALUATION: B-ADLs: (I=independent,A=assistance,D=dependent) ?Bathing: I Dressing: I Toileting: I Transferring: I Continence: I Feeding: I (Agruello Index): 6 I-ADLs: Ability to use phone: I Shopping: I Cooking: I Housekeeping: A Laundry: A Transportation: I Medications: I Handle Finances: A (Linda scale): 5 FRAILTY SCREENING (F.R.A.I.L Scale-Fried): Fatigue: YES Resistance (ability to climb a flight of stairs independently without rest and without aids): YES Aerobics (ability to walk a block independently and without aids): YES Illnesses (presence of > 5 illnesses such as HTN, CHF, OK, diabetes, COPD, cancer, CKD, arthritis, etc.): YES Loss of Weight (presence of > 5% in the past 6 months): YES Patient is Frail Robust = 0 Pre-frail= 1 Frail= 2+ Objective 01/07/25 0008 01/07/25 0102 01/07/25 0609 01/07/25 0747 BP: 102/67 117/71 122/64 129/79 Pulse: 95 112 102 Resp: 20 Temp: 37.2 ?C (98.9 ?F) (!) 38.8 ?C (101.9 ?F) 37.1 ?C (98.8 ?F) TempSrc: Oral SpO2: 98% 94% 95% Weight: Height: Body mass index is 27.34 kg/m?. Intake/Output Summary (Last 24 hours) at 01/07/2025 1018 Last data filed at 01/07/2025 0637 Gross per 24 hour Intake -- Output 2500 ml Net -2500 ml Last 14 Encounter Wt Readings: Date: Wt: 12/26/2024 66.7 kg (147 lb 0.8 oz) Physical Exam Vitals and nursing note reviewed. Constitutional: Appearance: She is ill-appearing. HENT: Head: Normocephalic and atraumatic. Mouth/Throat: Mouth: Mucous membranes are moist. Pharynx: Oropharynx is clear. Cardiovascular: Rate and Rhythm: Regular rhythm. Tachycardia present. Pulmonary: Effort: Pulmonary effort is normal. Abdominal: General: Abdomen is flat. Palpations: Abdomen is soft. Musculoskeletal: General: Normal range of motion. Cervical back: Normal range of motion. Skin: General: Skin is dry. Comments: Knees with mottling, cool to touch Neurological: Mental Status: She is lethargic and disoriented. Psychiatric: Attention and Perception: She is inattentive. Speech: Speech normal. Behavior: Behavior is withdrawn. Cognition and Memory: Cognition is impaired. Memory is impaired. Comments: Very lethargic, could not keep pt awake. RN states she was awake and alert this morning. 4AT: Alertness: Clearly abnormal (4) AMT- age, , place, year: 2 or more errors (2) Attention: Cannot start due to unwell/inattentive (2) Acute or fluctuating cognitive status:Yes (4) 4AT Score: 12/12, indicating possible delirium and/or cognitive impairment (4+) DELIRIUM RISK ASSESSMENT: DEAR assessment: HIGH RISK BCAM: Positive Anti-psychotics in 48 last hours: N/A Opioids/Benzodiazepines in last 48 hours: oxycodone Anti-cholinergics in last 48 hours: robaxin Restraints: N/A Indwelling Catheters: villela Last BM: 01/06, bowel regimen: senna-s Activity in the Past 24 hours: bed, chair Ambulatory Device: N/A LABS AND DIAGNOSTICS: Glucose (mg/dL) Date Value 01/07/2025 83 Potassium (mmol/L) Date Value 01/07/2025 4.2 Sodium (mmol/L) Date Value 01/07/2025 132 Chloride (mmol/L) Date Value 01/07/2025 100 CO2 (mmol/L) Date Value 01/07/2025 17 Creatinine (mg/dL) Date Value 01/07/2025 0.50 BUN (mg/dL) Date Value 01/07/2025 5 Anion Gap (mmol/L) Date Value 01/07/2025 15 Calcium, Total (mg/dL) Date Value 01/07/2025 8.5 Protein, Total (g/dL) Date Value 12/31/2024 5.3 Albumin (g/dL) Date Value 12/31/2024 2.9 Bilirubin, Total (mg/dL) Date Value 12/31/2024 0.8 Alkaline Phosphatase (U/L) Date Value 12/31/2024 198 AST (U/L) Date Value 12/31/2024 150 ALT (U/L) Date Value 12/31/2024 93 CBC: Hemoglobin (g/dL) Date Value 01/07/2025 9.5 Hematocrit (%) Date Value 01/07/2025 27.9 WBC (k/uL) Date Value 01/07/2025 11.13 Platelet Count (k/uL) Date Value 01/07/2025 405 TSH (mIU/L) Date Value 12/31/2024 4.680 Vitamin D 25 Hydroxy (ng/mL) Date Value 12/27/[address]/MRI of Head/Brain/Other relevant Radiology Today: CT abd 1. Since the previous study of 10 days ago, there has been the interval development of abnormal asymmetric enlargement of the left psoas muscle with a central area of hypodensity measuring 2 cm. The finding is concerning for possible myositis and developing abscess. Hematoma is a less likely consideration. 2. Possible 1 cm solid left renal nodule. MRI kidneys with and without IV contrast recommended. CT chest 1. No pneumothorax. 2. Trace left pleural effusion. 3. Minor scattered areas of linear atelectasis or scarring bilaterally. DISCUSSION: RN stated that patient had much better mental status this morning. Was AANDOx2- 3. Has become more lethargic as the day progresses. She had concerns about infection management and budesonide. Pt up in chair. Falling asleep while talking. Could not keep her awake to answer questions. Spoke with son Pankaj on phone. Updated. Patient lives with Pankaj at home. Can do about 80% of what is needed to live by herself but has been having a decline in her memory over the last year or so. Her passed last year, stroke 11 years ago. Patient does drink wine daily. Started with a glass or 2 but patient is now forgetful and will now drink a whole bottle because she forgets how much she drinks. Patient takes 2 naps a day Patient does have living will and HCPOA at home. Encouraged son to bring in so we can scan into system Patient has 2 kids. Pankaj states his sister lives in [place]. He does not have contact info for her as they have not had contact with her for many years Discussed code status with Pankaj. Educated about options of full code vs CCA. For now, he thinks patient would want full code and all measures. Explained code status can always be re-discussed at any time during hospital admission, showed understanding. ASSESSMENT AND PLAN: (5 M"s" - Matters most; Mentation; Multi-morbidity; Medications; Mobility) Patient is a 79 year old female with a past medical history of HTN, HLD, ETOH abuse, IBS, GERD who was admitted on 12/26/2024 for multiple falls previous night due to alcohol use (drinks 3-4 glasses of wine a day). Patient is a transfer from [facility], was brought to [facility] for evaluation. Imaging revealed L rib fractures 6-9 w hemopneumothorax. Patient has also developed concern for alcohol withdrawal, acute urinary retention, leukocytosis, cdiff, UTI, SVT, acute blood loss anemia. 1) Matters most- Goals of care- rehab then home Code status: FULL CODE Advance Directives: The patient has a living will and The patient has a DPOA-HC--Encouraged son to bring in papers to be scanned Surrogate decision maker if needed: son Pankaj. Patient does have a daughter in [place]. Son does not have contact info for her since they have not had contact with her for many years. [place] Hierarchy of Decision Makin-Legal Guardian 2-HCPOA 3-Spouse 4-Consensus of Adult Children 5-Consensus of Parents 6- Consensus of Adult Siblings 7-Closest Relative 2) Mentation- Memory loss- undiagnosed neurodegenerative disorder per son memory has been declining. But patient is able to live semi-independently. May benefit from geriatric eval outpatient Delirium- Patient is AANDO X2--likely related to infection at this time. Not likely due to alcohol at this point (12 days post drink) 4AT score: 04/26. Delirium protocol ordered on 01/07 Encouraged mobility Encouraged use of sensory aids Continue nursing delirium interventions Avoid restraints, use sitter if needed Provided delirium education to staff 3) Co Morbidities- L Rib fractures 6-9- management per trauma Pneumothorax- chest tube has been d/c'd ETOH Withdrawal- delirium, is out of the withdrawal window. 1 bottle of wine daily per son (patient forgets how much she drinks now) New Psoas abscess concern on CT today UTI-treatment per primary complete Cdiff-precautions, treatment per primary. DC budesonide given this can worsen cdiff infections. Restart once resolved. Urinary retention -villela, urology following Acute blood loss anemia-some black stools noted in chart Falls- this admit Frailty- PT/OT, consider nutrition consult due to ETOH abuse Mood- stable 4) Medications- Beers Criteria considered Avoid anticholinergics and antihistamines Avoid benzodiazepines Pain Tylenol 1000mg q8h The geriatric population should not exceed greater than 3g of tylenol daily. Patient also has alcohol concerns. Decrease for safety Minimize opiates as able Oxycodone 2.5-5mg PO Q4 PRN, 2.5mg for moderate and 5mg for severe Consider low dose tizanidine or baclofen prn for muscle spasms if needed. Robaxin TID prn ordered. This is a high risk medication that can cause delirium. Will d/c. Sleep Melatonin 6mg PO @8PM Bowel regimen -C Diff Senna-s BID -will d/c since has cdiff Caution use of medications that cause QT prolongation, QTc = 449 Consider risk/benefit of anticoagulation with frequent falls 5) Mobility- PT/OT Up to the chair or bed in chair position for ALL meals Recommend up to bathroom/bedside commode versus external catheters as able Discharge plan: PT/OT recommend subacute/SNF Geriatric follow-up plan: our team will follow peripherally at this time, available as needed Thank you so much for this consult. My final recommendations will be communicated back to the requesting physician by way of shared Medical record or letter to requesting physician via US mail. Discussed with: patient, RN, family, team I spent a total of 85 minutes on the date of the service which included preparing to see the patient, [id number] patient care, completing clinical documentation, obtaining and/or reviewing separately obtained history, performing a medically appropriate examination, counseling and educating the patient/family/caregiver, ordering medications, tests, or procedures, communicating with other HCPs (not separately reported), independently interpreting results (not separately reported), communicating results to the patient/family/caregiver, and care coordination (not separately reported). discussion of advance care planning, including DNR, goals of care and surrogate decision making. See Goals of Care section above. If there are any questions, the geriatric service is available Tuesday-Tuesday between 6:00am-4:00pm via [employer]. After hours and weekends, please contact Dr. Cory Pinzon or Dr. Janet Fiore. On-call information available on [employer]. SIGNATURE: Veronika Felipe APRN.DESIGN TRANSFERRER ADDENDUM: Portions of this note may have been copied and updated including ROS, PFSH, and PE so as to provide important historical information essential in contributing to medical decision making today. Information obtained from chart review, discussion with patient/family, and discussion with primary team. I have confirmed and edited as necessary, if the PFSH and ROS obtained by others. [1] PROGRESS Observed: 01/07/2025 8:51 AM Status: COMPLETED Source: [facility] HNO ID: [id number] Author: CHRISTIE NEIL APRN.HISTORIC PRESERVATIONIST Service: General Surgery Author Type: Nurse Practitioner Type: Progress Notes Filed: 01/07/2025 09:00 Note Text: Trauma Surgery Progress Note SERVICE DATE: 01/07/2025 Trauma Service Pager: For questions or concerns Tue-Tue 6a-5p please page [phone]. After 5pm and on Weekends and Holidays, please page [phone] if in ICU or [phone] if on RNF. SUBJECTIVE: No acute overnight events. Patient is awake, alert and oriented x 2. Respiratory status stable on RA. She reports improvement in abdominal pain. She denies chest pain, shortness of breath, nausea, vomiting. OBJECTIVE: Vitals: Temp (24hrs), Av.7 ?C (99.8 ?F), Min:37.1 ?C (98.8 ?F), Max:38.8 ?C (101.9 ?F) BP 129/79 Pulse 102 Temp 37.1 ?C (98.8 ?F) (Oral) Resp 20 Ht 156.2 cm (5' 1.5") Wt 66.7 kg (147 lb 0.8 oz) SpO2 95% BMI 27.34 kg/m? O2 Therapy: Room Air IANDO: Date 01/06/25 07 - 01/07/25 0601/07/25 07 - 01/08/25 0659 Shift 9551-0887 0405-5137 4211-0540 24 Hour Total 9393-6159 1202-4570 0711-1076 24 Hour Total INTAKE Shift Total OUTPUT Urine 1000 1500 2500 Output ( Indwelling Urinary Catheter 01/02/25 0100 Villela 16 Fr) 1000 1500 2500 # of BMs Stool Incontinence 1 x 1 x Number of BMs 2 x 2 x Shift Total 1000 1500 2500 Weight (kg) 66.7 66.7 66.7 66.7 66.7 66.7 66.7 66.7 MEDICATIONS: Current Facility-Administered Medications Medication Dose Route Frequency iv contrast (radiology procedure) INTRAVENOUS DIRECTED PRN And enteric contrast (radiology procedure) ORAL DIRECTED PRN vancomycin 125 mg oral liquid (VANCOCIN) 125 mg ORAL QID enoxaparin 30 mg injection (LOVENOX) 30 mg SUBCUTANEOUS q 12 HR therapeutic multivitamin-minerals tablet (THERA-M PLUS) 1 tablet ORAL DAILY melatonin 6 mg tab(s) 6 mg ORAL DAILY (8 PM) pantoprazole 40 mg injection (PROTONIX) 40 mg INTRAVENOUS BID AC (06/1599) senna-docusate 8.6-50 mg 1 tablet (SENNA-S) 1 tablet ORAL BID PRN metoprolol 5 mg injection (LOPRESSOR) 5 mg INTRAVENOUS q 6 H PRN methocarbamol 500 mg tab(s) (ROBAXIN) 500 mg ORAL TID PRN metoprolol tartrate (short acting) 12.5 mg tab(s) (LOPRESSOR) 12.5 mg ORAL q 8 H folic acid 1 mg tab(s) 1 mg ORAL DAILY lidocaine 4 % 2 patch (SALONPAS) 2 patch TRANSDERMAL DAILY And lidocaine patch - REMOVE OTHER AT BEDTIME And lidocaine - VERIFY PATCH OTHER q 8 H ipratropium-albuterol 3 mL nebulizer solution (DUONEB) 3 mL INHALATION q 6 H PRN acetaminophen 1,000 mg tab(s) (TYLENOL) 1,000 mg ORAL q 8 H budesonide, enteric coated 9 mg cap(s) (ENTOCORT EC) 9 mg ORAL DAILY cetirizine 10 mg tab(s) (ZYRTEC) 10 mg ORAL DAILY rosuvastatin 10 mg tab(s) (CRESTOR) 10 mg ORAL AT BEDTIME NaCl 0.9% iv flush bag 20 mL INTRAVENOUS PRN ondansetron 4 mg tab(s) (ZOFRAN) 4 mg ORAL q 6 H PRN Or ondansetron (PF) 4 mg injection (ZOFRAN) 4 mg INTRAVENOUS q 6 H PRN oxyCODONE IR 2.5-5 mg tab(s) (ROXICODONE) 2.5-5 mg ORAL q 4 H PRN thiamine 100 mg tab(s) (VITAMIN B1) 100 mg ORAL/FEEDING TUBE TID Labs: Recent Labs 01/07/25 0433 01/06/25 1546 01/06/25 0638 NA 132* 134* 134* K 4.2 2.9* 2.7* CHLOR 100 101 103 CO2 17* 21* 18* BUN 5* 5* 6* CREAT 0.50* 0.61 0.63 GLUC 83 93 85 ANION 15 12 13 CA 8.5 7.8* 7.7* WBC 11.13* -- 8.42 HB 9.5* -- 8.0* HCT 27.9* -- 23.7* PLT 405* -- 347 PHYSICAL EXAM: Genl: Appears age appropriate. No acute distress. Resting comfortably. Head/Face: Normocephalic. Atraumatic. Eyes: EOMI. Sclera not icteric, not injected Resp: Lung sounds are clear bilat. No wheezes. No rales. Breathing is non-labored on RA @ 95%. Left chest wall tenderness without crepitus. CVS: RRR as above; 2+ pulses at RA, DP, PT bilat. GI: Abdomen is soft, non-tender, not distended. Bowel sounds normoactive. No peritonitis. : Villela catheter draining clear, yellow urine. MSK: Extremities without clubbing, cyanosis, edema. Normal ROM x 4. Skin: Warm and dry. Not jaundiced. Moderately left forearm edema. Ecchymosis to left upper extremity. Scattered ecchymosis to right upper extremity. Ecchymosis to left chest, hip. Neuro: AANDOx1. Strength and sensation normal. BRAGA. Psych: Drowsy, slow to respond. ASSESSMENT AND PLAN: Assessment Active Hospital Problems Diagnosis Date Noted Pneumothorax 12/26/2024 Renal cyst 01/04/2025 Malnutrition of mild degree (HCC) 01/03/2025 At risk for delirium 12/31/2024 Acute cystitis without hematuria 12/31/2024 Urinary retention 12/31/2024 Hypokalemia 12/31/2024 Hyponatremia 12/31/2024 SVT (supraventricular tachycardia) ([facility]) 12/31/2024 Hypophosphataemia 12/31/2024 Posttraumatic respiratory insufficiency 12/27/2024 Fall 12/26/2024 Closed fracture of multiple ribs of left side 12/26/2024 Hemopneumothorax on left 12/26/2024 Alcohol use 12/26/2024 Type 2 diabetes ([facility]) 12/26/2024 Chronic IBS (irritable bowel syndrome) 12/26/2024 Chronic History of stroke 2013 Chronic History of cholecystectomy 2008 Chronic Assessment: 79-year old female s/p mechanical fall on 12/26/24 (Trauma transfer from [place]) Imaging performed: CT HNCAP ([place] [facility], 12/26) CXR, XR left elbow/forearm (12/26) CXR x 2 (12/27) CXR x 3, CTA chest, CTAP (12/28) CXR (12/29) CXR (12/30) CXR (12/31) CT brain, CXR x 2, KUB (01/01) CXR (01/02) CXR (01/03) CXR (01/04) DVT US BUE (01/05) Traumatic Injuries: Left 6-9 rib fractures with associated hemopneumothorax and subcutaneous emphysema Left elbow contusion with small skin tear Operations/Procedures: 1. 12/27/2024 - Left chest tube inserted 2. 12/28/2024 - Left subclavian CVC (removed 12/30) Care Plan: Left rib fractures with hemopneumothorax S/p left chest tube insertion 12/27/24 CT to water seal 12/28, removed 01/01 CXR (01/04): Persistent left lung base focal opacity Respiratory status stable on RA Aggressive pulmonary hygiene Multimodal pain control Mobilize as tolerated ETOH abuse, delirium Patient reports daily wine consumption 3-4 glasses Received Phenobarbital and Ativan at [facility] and during transfer Phenobarb taper discontinued 2/2 sedation CIWA protocol Continue Thiamine, Folate Social work consult Discontinue Seroquel due to drowsiness Continue Melatonin at HS Acute urinary retention Villela inserted 12/28 due to high volume retention Villela catheter removed 12/31 and void trial initiated Required straight catheterization x 1 due to continued retention on 01/01 Villela catheter reinserted 01/02 due to high volume retention Urology consulted, appreciate recommendations Per urology: Consider formal urology driven void trial prior to discharge if milestones of mentation at baseline, improvement in ambulation, and having regular bowel movements are met Leukocytosis WBCs 9.8 -> 8.4 -> 11.1 Febrile- 38.8 C, HDS Respiratory status stable on RA Blood cultures (12/28): NGTD UA (12/28): +WBCs, leuks UC (12/28): +E.Coli Repeat UA (01/01): +WBCs, leuks Received Zosyn x 7 days for UTI (12/28-12/31 and (01/02-01/06) C.diff PCR (01/02): Positive C.diff EIA (820): Negative Continue PO Vancomycin QID (01/03-01/12) Obtain STAT CT CAP Trend daily CBC SVT Patient with episodes of SVT necessitating IV Metoprolol for conversion to SR ECHO (01/02): EF 60%, mild concentric LVH, LV/RV function normal, mild 1+-2+ AV regurg Consider increasing PO Metoprolol from 12.5 mg TID to 25 mg TID if HR remains uncontrolled PRN IV Metoprolol 5 mg every 6 hours for HR > 120 Continuous cardiac monitoring Monitor electrolytes and supplement as needed Acute blood loss anemia, ?UGIB Hgb 8.5 -> 8.0 -> 9.5 +Tarry stool x 1 on 01/02/25 Likely in setting of NSAID administration with history of IBD Resume DVT chemoprophylaxis; if Hgb continues to decrease, consult GI Continue Pantoprazole BID Transfuse for Hgb < 7.0 or for signs of bleeding Trend daily CBC Continue home medications as ordered Current diet order: DIET FOOD CONSISTENCY CONTROLLED Pain regimen: Scheduled Tylenol, PRN Oxycodone, Robaxin Bowel regimen: None Labs: As above PPX: DVT: Resume Lovenox 30 mg BID, SCDs, mobilize Ulcer: Pantoprazole BID Vit D level if > 65 yo: 46.4 Consulted Services: SICU PT/OT Social work Dispo Planning: PT/OT recommend SNF. Case management following. Incidentals: None Follow Up Needs: Trauma clinic in 1 week Staff Trauma Surgeon: Dr. Phillips SIGNATURE: Christie Neil APRN.CNP PATIENT NAME: Cristino Verdugo DATE: 01/07/2025 TIME: 8:51 AM Pager: see below Trauma Service Pager: For questions or concerns Mon-Fri 6a-5p please page [phone]. After 5pm and on Weekends and Holidays, please page [phone] if in ICU or [phone] if on RNF. INPATIENT ATTENDING: Dr. Phillips High-Risk Geriatric Patient Vulnerabilities: Impaired Cognition, Impaired Functional Status, and Malnutrition Diet: DIET FOOD CONSISTENCY CONTROLLED Recommendations: Cognition: Impaired Cognition (Consult Geriatrics) bCAM Score (Calc): Negative Delirium Screen Confusion Assessment Method (CAM - ICU Score): (!) Positive Geriatric Consult (Age over 85 or impaired cognition):Consult to [employer] Palliative Care/Hospice: Consult not required Rehab/Therapy: PT/OT Recommendations: PT: Recommended Discharge Disposition: Subacute/SNF OT: Recommended Discharge Disposition: Subacute/SNF Swallow: Swallow Screening Result - Step 2: PASSED Swallow Screen - Patient Able To Swallow 3 Ounce Cup of Water Without Exhibiting Signs Of Aspiration Speech Recommendations: Speech: Recommended Discharge Disposition: Continued Skilled Speech Therapy Speech Diet: Diet Recommendations: Soft and Bite-Sized IDDSI Level 6, Thin Liquids IDDSI Level 0 Nutrition: Consult to Nutrition Therapy Nutrition Recommendations: MST: Total MST Score (Calculated): 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 diet Supplements: [employer] 1.4, [employer] 1.0 (allergy to milk products.) Refer to: Speech/Language (eval to ensure diet appropriate for pt give confusion.) Vitamins and Minerals: Multivitamin with minerals Medications: Appetite stimulants Discharge Recommendations: Diet, Oral Supplements Diet: regular vs [employer] DES[employer] Oral Supplements: high mike/protein supplement/snack of choice 2-3x/day between meals Pharmacy: Consult not needed Social Work: NA Anticipated Discharge Disposition: Fdc Facility CBC PNL BLD AUTO Collected: 01/07/2025 4:33 AM Statu s: F Source: [facility] Order Comment: Specimen Type : BLOOD SPECIMEN Ordering Facility: [facility] Address: [address] [place] [address] TYPE CODE TESTS RESULT OUT OF RANGE REFERENCE UNITS LAB 6690-2(INC) WBC # Bld Auto 11.13 High 3.70-11.00 k/uL LAB 789-8(LOINC) RBC # Bld Auto 2.66 Low 3.90-5.20 m/ uL LAB 718-7(LOINC) Hgb Bld-mCnc 9.5 Low 11.5-15.5 g/dL LAB 4544-3(LOINC) Hct VFr Bld Auto 27.9 Low 36.0-46.0 % LAB 787-2(LOINC) MCV RBC Auto 104.9 High 80.0-100.0 fL LAB 785-6(LOINC) MCH RBC Qn Auto 35.7 High 26.0-34.0 pg LAB 786-4(LOINC) MCHC RBC Auto-mCnc 34.1 30.5-36.0 g/dL LAB 17403-0(LOINC) RDW RBC-Rto 13.4 11.5-15.0 % LAB 777-3(LOINC) Platelet # Bld Auto 405 High 150-400 k/uL LAB 64540-6(LOINC) PMV Bld Auto 10.6 9.0-12.7 fL LAB 771-6(LOINC) nRBC # Bld Auto <0.01 <0.01 k/uL Performed By: #### [id number] # ### [facility] CLIA [id number] [address] STATES OF [facility] BAS METAB 2000 PNL SERPL Collected: 4:33 AM Status: F Source: [facility] Order Comment: Specimen Type : BLOOD SPECIMEN Ordering Facility: [facility] Address: [address] [place], [place] [id number] TYPE CODE TESTS RESULT OUT OF RANGE REFERENCE UNITS LAB 2345-7(LOINC) Glucose SerPl-mCnc 83 74-99 mg/dL Result Comment: The [place] Diabetes Association (ADA) provides guidance for cutoff values for fasting glucose and random glucose. The ADA defines fasting as no caloric intake for at least 8 hours. Fasting plasma glucose results between 100 to 125 mg/dL indicate increased risk for diabetes (prediabetes). Fasting plasma glucose results greater than or equal to 126 mg/dL meet the criteria for diagnosis of diabetes. In the absence of unequivocal hyperglycemia, results should be confirmed by repeat testing. In a patient with classic symptoms of hyperglycemia or hyperglycemic crisis, random plasma glucose results greater than or equal to 200 mg/dL meet the criteria for diagnosis of diabetes. Reference: Standards of Medical Care in Diabetes 2016, [place] Diabetes Association. Diabetes Care. 2016.39(Suppl 1). LAB 3094-0(LOINC) BUN SerPl-mCnc 5 Low 7-21 mg/dL LAB 2160-0(LOINC) Creat SerPl-mCnc 0.50 Low 0.58-0.96 mg/dL LAB 2951-2(LOINC) Sodium SerPl-sCnc 132 Low 136-144 mmol/L LAB 2823-3(LOINC) Potassium SerPl-sCnc 4.2 3.7-5.1 mmol/L LAB 2075-0(LOINC) Chloride SerPl-sCnc 100 98-107 mmol/L LAB 2028-9(LOINC) CO2 SerPl-sCnc 17 Low 22-30 mmol/L LAB 1863-0(LOINC) Anion Gap4 SerPl-sCnc 15 8-15 mmol/L LAB 39963-4(LOINC) Calcium SerPl-mCnc 8.5 8.5-10.2 mg/dL LAB 48926-0(LOINC) eGFRcr SerPlBld CKD-EPI 2020 97 >=60 mL/min/1. 73m??? Result Comment: Estimated Gl omerular Filtration Rate (eGFR) is calculated using the 2020 CKD-EPI creatinine equation. This equation utilizes serum creatinine, sex, and age as parameters. The creatinine assay has traceable calibration to isotope dilution-mass spectrometry. Refer to KDIGO guidelines for clinical interpretation. In patients with unstable renal function, e.g. those with acute kidney injury, the eGFR may not accurately reflect actual GFR. Performed By: #### [id number] # ### [facility] CLIA [id number] [address] [place] [address] [place] BAS METAB 2000 PNL SERPL Collected: 3:46 PM Status: F Source: [facility] Order Comment: Specimen Type : BLOOD SPECIMEN Ordering Facility: [facility] Address: [address] [place], [place] [address] [address] TYPE CODE TESTS RESULT OUT OF RANGE REFERENCE UNITS LAB 2345-7(LOINC) Glucose SerPl-mCnc 93 74-99 mg/dL Result Comment: The [place] Diabetes Association (ADA) provides guidance for cutoff values for fasting glucose and random glucose. The ADA defines fasting as no caloric intake for at least 8 hours. Fasting plasma glucose results between 100 to 125 mg/dL indicate increased risk for diabetes (prediabetes). Fasting plasma glucose results greater than or equal to 126 mg/dL meet the criteria for diagnosis of diabetes. In the absence of unequivocal hyperglycemia, results should be confirmed by repeat testing. In a patient with classic symptoms of hyperglycemia or hyperglycemic crisis, random plasma glucose results greater than or equal to 200 mg/dL meet the criteria for diagnosis of diabetes. Reference: Standards of Medical Care in Diabetes 2016, [place] Diabetes Association. Diabetes Care. 2016.39(Suppl 1). LAB 3094-0(LOINC) BUN SerPl-mCnc 5 Low 7-21 mg/dL LAB 2160-0(LOINC) Creat SerPl-mCnc 0.61 0.58-0.96 mg/dL LAB 2951-2(LOINC) Sodium SerPl-sCnc 134 Low 136-144 mmol/L LAB 2823-3(LOINC) Potassium SerPl-sCnc 2.9 Low 3.7-5.1 mmol/L LAB 2075-0(LOINC) Chloride SerPl-sCnc 101 98-107 mmol/L LAB 2028-9(LOINC) CO2 SerPl-sCnc 21 Low 22-30 mmol/L LAB 1863-0(LOINC) Anion Gap4 SerPl-sCnc 12 8-15 mmol/L LAB 03167-1(LOINC) Calcium SerPl-mCnc 7.8 Low 8.5-10.2 mg/dL LAB 63932-5(LOINC) eGFRcr SerPlBld CKD-EPI 2020 92 >=60 mL/min/1. 73m??? Result Comment: Estimated Gl omerular Filtration Rate (eGFR) is calculated using the 2020 CKD-EPI creatinine equation. This equation utilizes serum creatinine, sex, and age as parameters. The creatinine assay has traceable calibration to isotope dilution-mass spectrometry. Refer to KDIGO guidelines for clinical interpretation. In patients with unstable renal function, e.g. those with acute kidney injury, the eGFR may not accurately reflect actual GFR. Performed By: #### [id number] # ### [facility] CLIA [id number] [address] PROGRESS Observed: 01/06/2025 8:21 AM Status: COMPLETED Source: [facility] HNO ID: [id number] Author: JOSEFA MAHONEY MD Service: General Surgery Author Type: Physician Type: Progress Notes Filed: 01/06/2025 11:21 Note Text: Trauma Surgery Progress Note SERVICE DATE: 01/06/2025 Trauma Service Pager: For questions or concerns Mon-Fri 6a-5p please page [phone]. After 5pm and on Weekends and Holidays, please page [phone] if in ICU or [phone] if on RNF. SUBJECTIVE: Pt seen at bedside, afebrile overnight although temp reportedly improved after her blankets were taken off. No leukocytosis, still on PO Vanco for C diff. NAEO. Awaiting precert for placement to facility. OBJECTIVE: Vitals: Temp (24hrs), Av.7 ?C (99.8 ?F), Min:36.7 ?C (98 ?F), Max:39.1 ?C (102.4 ?F) BP 150/84 Pulse 105 Temp 37.9 ?C (100.3 ?F) Resp 20 Ht 156.2 cm (5' 1.5") Wt 66.7 kg (147 lb 0.8 oz) SpO2 97% BMI 27.34 kg/m? O2 Therapy: Nasal Cannula IANDO: Date 01/05/25699 - 01/06/2565801/06/25699 - 01/07/25 0659 Shift 1575-9436 4196-5215 1215-8000 24 Hour Total 8982-9892 8468-4307 5076-9459 24 Hour Total INTAKE Shift Total OUTPUT Urine 370 727 3281 2049 Output ( Indwelling Urinary Catheter 01/02/25 0100 V[place]la 16 Fr) 588 328 6000 2049 # of BMs Stool Incontinence 1 x 1 x Number of BMs 1 x 1 x Shift Total 078 432 6847 2049 Weight (kg) 66.7 66.7 66.7 66.7 66.7 66.7 66.7 66.7 MEDICATIONS: Current Facility-Administered Medications Medication Dose Route Frequency vancomycin 125 mg oral liquid (VANCOCIN) 125 mg ORAL QID potassium chloride ER (KLOR-CON M10) tab(s) 50 mEq 50 mEq ORAL ONCE enoxaparin 30 mg injection (LOVENOX) 30 mg SUBCUTANEOUS q 12 HR therapeutic multivitamin-minerals tablet (THERA-M PLUS) 1 tablet ORAL DAILY melatonin 6 mg tab(s) 6 mg ORAL DAILY (8 PM) pantoprazole 40 mg injection (PROTONIX) 40 mg INTRAVENOUS BID AC (06/1599) senna-docusate 8.6-50 mg 1 tablet (SENNA-S) 1 tablet ORAL BID PRN metoprolol 5 mg injection (LOPRESSOR) 5 mg INTRAVENOUS q 6 H PRN methocarbamol 500 mg tab(s) (ROBAXIN) 500 mg ORAL TID PRN metoprolol tartrate (short acting) 12.5 mg tab(s) (LOPRESSOR) 12.5 mg ORAL q 8 H folic acid 1 mg tab(s) 1 mg ORAL DAILY lidocaine 4 % 2 patch (SALONPAS) 2 patch TRANSDERMAL DAILY And lidocaine patch - REMOVE OTHER AT BEDTIME And lidocaine - VERIFY PATCH OTHER q 8 H ipratropium-albuterol 3 mL nebulizer solution (DUONEB) 3 mL INHALATION q 6 H PRN acetaminophen 1,000 mg tab(s) (TYLENOL) 1,000 mg ORAL q 8 H budesonide, enteric coated 9 mg cap(s) (ENTOCORT EC) 9 mg ORAL DAILY cetirizine 10 mg tab(s) (ZYRTEC) 10 mg ORAL DAILY rosuvastatin 10 mg tab(s) (CRESTOR) 10 mg ORAL AT BEDTIME NaCl 0.9% iv flush bag 20 mL INTRAVENOUS PRN ondansetron 4 mg tab(s) (ZOFRAN) 4 mg ORAL q 6 H PRN Or ondansetron (PF) 4 mg injection (ZOFRAN) 4 mg INTRAVENOUS q 6 H PRN oxyCODONE IR 2.5-5 mg tab(s) (ROXICODONE) 2.5-5 mg ORAL q 4 H PRN thiamine 100 mg tab(s) (VITAMIN B1) 100 mg ORAL/FEEDING TUBE TID Labs: Recent Labs 01/06/25 0638 01/05/25 0512 NA 134* 133* K 2.7* 3.4* CHLOR 103 101 CO2 18* 19* BUN 6* 7 CREAT 0.63 0.74 GLUC 85 79 ANION 13 13 CA 7.7* 8.2* WBC 8.42 9.83 HB 8.0* 8.5* HCT 23.7* 25.2* PLT 347 366 PHYSICAL EXAM: Genl: Appears age appropriate. No acute distress. Resting comfortably. Head/Face: Normocephalic. Atraumatic. Eyes: EOMI. Sclera not icteric, not injected Resp: Lung sounds are clear bilat. No wheezes. No rales. Breathing is non-labored on 2L at 98%. Left chest wall tenderness without crepitus. CVS: RRR as above; 2+ pulses at RA, DP, PT bilat. GI: Abdomen is soft, non-tender, not distended. Bowel sounds normoactive. No peritonitis. : Villela catheter draining clear, yellow urine. MSK: No acute deformities noted. Moderate left forearm swelling to the elbow and slightly into the upper arm with ecchymosis; no warmth, redness or induration; mild forearm tenderness to palpation; ecchymosis right elbow near IV site. Skin: Warm and dry. Not jaundiced. Various stages of ecchymosis to the upper extremities as noted above. Neuro: AANDOx1-2. Able to state name, , and that she is in the hospital. Uncertain of time/date/year. BRAGA. Follows commands. GCS 15. Psych: No acute agitation. ASSESSMENT AND PLAN: Assessment Active Hospital Problems Diagnosis Date Noted Pneumothorax 12/26/2024 Renal cyst 01/04/2025 Malnutrition of mild degree (HCC) 01/03/2025 At risk for delirium 12/31/2024 Acute cystitis without hematuria 12/31/2024 Urinary retention 12/31/2024 Hypokalemia 12/31/2024 Hyponatremia 12/31/2024 SVT (supraventricular tachycardia) (HCC) 12/31/2024 Hypophosphataemia 12/31/2024 Posttraumatic respiratory insufficiency 12/27/2024 Fall 12/26/2024 Closed fracture of multiple ribs of left side 12/26/2024 Hemopneumothorax on left 12/26/2024 Alcohol use 12/26/2024 Type 2 diabetes (HCC) 12/26/2024 Chronic IBS (irritable bowel syndrome) 12/26/2024 Chronic History of stroke 2013 Chronic History of cholecystectomy 2008 Chronic Assessment: 79-year old female s/p mechanical fall on 12/26/24 (Trauma transfer from [place]) Imaging performed: CT HNCAP ([place] [facility], 12/26) CXR, XR left elbow/forearm (12/26) CXR x 2 (12/27) CXR x 3, CTA chest, CTAP (12/28) Traumatic Injuries: Left 6-9 rib fxs with associated hemopneumothorax and SQ air Left elbow contusion with small skin tear Operations/Procedures: 1. 12/27/2024 - Left chest tube inserted 2. 12/28/2024 - Left subclavian CVC (removed 12/30) Care Plan: Left rib fractures with hemopneumothorax - S/p left chest tube insertion 12/27, removed 01/01 - Multimodal pain control - Mobilize as tolerated ETOH abuse, delirium - Patient reports daily wine consumption 3-4 glasses - Received Phenobarbital and Ativan at [facility] and during transfer - Phenobarb taper discontinued 2/2 sedation - [facility] protocol - Continue Thiamine, Folate - Social work consult - Discontinue Seroquel due to drowsiness Acute urinary retention - Urology consulted- non-op management - Void trial prior to day of D/C per urology UTI UC (12/28): +E.Coli, s/p zosyn x3 d SVT - episodes of SVT necessitating IV Metoprolol for conversion to SR - ECHO (01/02): EF 60%, mild concentric LVH, LV/RV function normal, mild 1+-2+ AV regurg - Consider increasing PO Metoprolol from 12.5 mg TID to 25 mg TID if HR remains uncontrolled - PRN IV Metoprolol 5 mg every 6 hours for HR > 120 - Tele Acute blood loss anemia, ?UGIB - Hgb 8 from 8.5 - Only 1 episode of tarry stool - Possibly related to NSAID administration with history of IBD - Continue pantoprazole BID - Transfuse for Hgb < 7.0 or for signs of bleeding +C. diff infection - PO vanco (end: 01/12) - DVT US LUE - Void trial prior to day of D/C per urology - Seen by PT/OT who advise subacute/SNF placement - [employer] DES[employer]: soft and bite-sized diet with thin liquids - Continue home medications as ordered - Current diet order: DIET FOOD CONSISTENCY CONTROLLED - Pain regimen: Scheduled Tylenol, PRN Oxycodone, Robaxin - Bowel regimen: None PPX: DVT: LVX 30 mg BID, SCDs, mobilize Ulcer: Pantoprazole BID Vit D level if > 65 yo: 46.4 Consulted Services: SICU PT/OT Social work Dispo Planning: - PT/OT recommend SNF. Case management following. Incidentals: - None Follow Up Needs: - Trauma clinic - 1 week To be discussed with attending Dr. Denzel Stapleton MD 01/06/2025 8:24 AM Trauma Service Pager: For questions or concerns Mon-Fri 6a-5p please page [phone]. After 5pm and on Weekends and Holidays, please page [phone] if in ICU or [phone] if on RNF. Attending Note I personally saw and examined the patient. I reviewed the resident's note. I agree with the resident's assessment and plan unless otherwise noted. As above Potassium low due to diarrhea Replace IV and re-check potassium level and aim for level of 4 Signature: Josefa Mahoney MD Date: 01/06/2025 Time: 11:19 AM BAS METAB 2000 PNL SERPL Collected: 6:38 AM Status: F Source: [facility] Order Comment: Specimen Type : BLOOD SPECIMEN Ordering Facility: [facility] Address: [address] [place] [address] TYPE CODE TESTS RESULT OUT OF RANGE REFERENCE UNITS LAB 2345-7(LOINC) Glucose SerPl-nc 85 74-99 mg/dL Result Comment: The [place] Diabetes Association (ADA) provides guidance for cutoff values for fasting glucose and random glucose. The ADA defines fasting as no caloric intake for at least 8 hours. Fasting plasma glucose results between 100 to 125 mg/dL indicate increased risk for diabetes (prediabetes). Fasting plasma glucose results greater than or equal to 126 mg/dL meet the criteria for diagnosis of diabetes. In the absence of unequivocal hyperglycemia, results should be confirmed by repeat testing. In a patient with classic symptoms of hyperglycemia or hyperglycemic crisis, random plasma glucose results greater than or equal to 200 mg/dL meet the criteria for diagnosis of diabetes. Reference: Standards of Medical Care in Diabetes 2016, [place] Diabetes Association. Diabetes Care. 2016.39(Suppl 1). LAB 3094-0(LOINC) BUN SerPl-mCnc 6 Low 7-21 mg/dL LAB 2160-0(LOINC) Creat SerPl-mCnc 0.63 0.58-0.96 mg/dL LAB 2951-2(LOINC) Sodium SerPl-sCnc 134 Low 136-144 mmol/L LAB 2823-3(LOINC) Potassium SerPl-sCnc 2.7 Low 3.7-5.1 mmol/L LAB 2075-0(LOINC) Chloride SerPl-sCnc 103 98-107 mmol/L LAB 2028-9(LOINC) CO2 SerPl-sCnc 18 Low 22-30 mmol/L LAB 1863-0(LOINC) Anion Gap4 SerPl-sCnc 13 8-15 mmol/L LAB 72462-3(LOINC) Calcium SerPl-mCnc 7.7 Low 8.5-10.2 mg/dL LAB 04521-1(LOINC) eGFRcr SerPlBld CKD-EPI 2020 91 >=60 mL/min/1. 73m??? Result Comment: Estimated Gl omerular Filtration Rate (eGFR) is calculated using the 2020 CKD-EPI creatinine equation. This equation utilizes serum creatinine, sex, and age as parameters. The creatinine assay has traceable calibration to isotope dilution-mass spectrometry. Refer to KDIGO guidelines for clinical interpretation. In patients with unstable renal function, e.g. those with acute kidney injury, the eGFR may not accurately reflect actual GFR. Performed By: #### [id number] # ### [facility] CLIA [id number] [address] [place] CBC PNL BLD AUTO Collected: 01/06/2025 6:38 AM Statu s: F Source: [facility] Order Comment: Specimen Type : BLOOD SPECIMEN Ordering Facility: [facility] Address: [address] [facility] [place] [address] TYPE CODE TESTS RESULT OUT OF RANGE REFERENCE UNITS LAB 6690-2(LOINC) WBC # Bld Auto 8.42 3.70-11.00 k/uL LAB 789-8(LOINC) RBC # Bld Auto 2.26 Low 3.90-5.20 m/ uL LAB 718-7(LOINC) Hgb Bld-mCnc 8.0 Low 11.5-15.5 g/dL LAB 4544-3(LOINC) Hct VFr Bld Auto 23.7 Low 36.0-46.0 % LAB 787-2(LOINC) MCV RBC Auto 104.9 High 80.0-100.0 fL LAB 785-6(LOINC) MCH RBC Qn Auto 35.4 High 26.0-34.0 pg LAB 786-4(LOINC) MCHC RBC Auto-mCnc 33.8 30.5-36.0 g/dL LAB 04312-2(LOINC) RDW RBC-Rto 13.4 11.5-15.0 % LAB 777-3(LOINC) Platelet # Bld Auto 347 150-400 k/uL LAB 40694-2(LOINC) PMV Bld Auto 9.6 9.0-12.7 fL LAB 771-6(LOINC) nRBC # Bld Auto <0.01 <0.01 k/uL Performed By: #### [id number] # ### [facility] CLIA [id number] [address] [place] US DVT UPPER LT Observed: 01/05/2025 4:28 PM Status: F Source: [facility] * * *Final Report* * * DATE OF EXAM: Jan 05 2025 4:28PM [facility] 1003 - US DVT UPPER LT / PROCEDURE REASON: Arm swelling * * * * Physician Interpretation * * * * EXAMINATION: LEFT UPPER EXTREMITY DEEP VENOUS ULTRASOUND WITH DOPPLER IMAGING CLINICAL HISTORY: 79 years old Female with Arm swelling TECHNIQUE: Grayscale with compression maneuvers where accessible, color and spectral Doppler of the left internal jugular, subclavian, and axillary veins was performed. Grayscale with compression maneuvers of the left brachial, basilic and cephalic veins was also performed. The contralateral internal jugular and distal subclavian veins were imaged for comparison. Images were obtained and stored in a permanent archive. MQ: [email or web address] COMPARISON: None RESULT: LEFT UPPER EXTREMITY DEEP VEINS Internal Jugular vein: Normal compression, normal spontaneous flow. Subclavian vein: Normal, spontaneous flow. Axillary vein: Normal compression, normal spontaneous flow. Brachial vein: Normal compression SUPERFICIAL VEINS Basilic vein: Normal compression. Cephalic vein: Not visualized RIGHT UPPER EXTREMITY (FOR COMPARISON) DEEP VEINS Internal Jugular and Distal Subclavian veins: Normal compression, normal spontaneous flow. IMPRESSION: Negative study for DVT in the left upper extremity. Negative study for superficial thrombophlebitis in the visualized segments of the left upper extremity. Cloud Subject Matter Expert: PSCB Transcribe Date/Time: Jan 06 2025 9:25A Dictated by : YAN CARPIO DO This examination was interpreted and the report reviewed and electronically signed by: YAN CARPIO DO on Jan 06 2025 9:27AM EST [id number] CASE MANAGEM Observed: 01/05/2025 2:12 PM Status: COMPLETED Source: [facility] HNO ID: [id number] Author: ROSE CASIANO RN Service: Care Management Author Type: Registered Nurse Type: Care Mgt Progress Note Filed: 01/05/2025 14:13 Note Text: CARE MANAGEMENT PROGRESS NOTE SERVICE DATE: 01/05/2025 SERVICE TIME: 2:12 PM LOS: 10 days Needs Prior to Discharge: Precertification, Discharge Transportation Per message from [facility] yesterday afternoon, they have submitted for precert. Requested update on precert status from facility this morning, awaiting response. SIGNATURE: Brianne Casiano RN PATIENT NAME: Cristino Verdugo DATE: January 05, 2025 TIME: 2:12 PM PROGRESS Observed: 01/05/2025 8:58 AM Status: COMPLETED Source: [facility] HNO ID: [id number] Author: JOSEFA MAHONEY MD Service: General Surgery Author Type: Physician Type: Progress Notes Filed: 01/06/2025 21:32 Note Text: Trauma Surgery Progress Note SERVICE DATE: 01/05/2025 Trauma Service Pager: For questions or concerns Mon-Fri 6a-5p please page [phone]. After 5pm and on Weekends and Holidays, please page [phone] if in ICU or [phone] if on RNF. SUBJECTIVE: NAEON. Patient awake watching television this morning. She is alert and oriented to self and notes that she is in the hospital. She intermittently stares at the television and fails to answer some questions. Pain is controlled. She states that she is "doing better." She denies sob, abdominal pain, n/v, chills or sweats. RN present at bedside. No bloody or tarry BM's noted overnight or this morning - minimal greenish stool per description. LUE swollen at the forearm and elbow. Patient was also tachycardic into the 140s this morning and she was given IV Lopressor x 1. OBJECTIVE: Vitals: Temp (24hrs), Av.7 ?C (98 ?F), Min:36.1 ?C (97 ?F), Max:37.3 ?C (99.1 ?F) BP 148/83 Pulse 120 Temp 36.2 ?C (97.2 ?F) (Oral) Resp 18 Ht 156.2 cm (5' 1.5") Wt 66.7 kg (147 lb 0.8 oz) SpO2 93% BMI 27.34 kg/m? O2 Therapy: Nasal Cannula IANDO: Date 01/04/25699 - 01/05/2565801/05/25699 - 01/06/25 0659 Shift 7052-1420 7760-4266 5896-9261 24 Hour Total 1837-7078 6190-6456 8201-8883 24 Hour Total INTAKE Shift Total OUTPUT Urine 800 869 707 3247 Output ( Indwelling Urinary Catheter 01/02/25 0100 [place]la 16 Fr) 800 818 350 0635 # of BMs Stool Incontinence 1 x 2 x 3 x Number of BMs 2 x 2 x 4 x Shift Total 800 280 040 6662 Weight (kg) 66.7 66.7 66.7 66.7 66.7 66.7 66.7 66.7 MEDICATIONS: Current Facility-Administered Medications Medication Dose Route Frequency vancomycin 125 mg cap(s) (VANCOCIN) 125 mg ORAL QID NaCl 0.9% iv infusion 100 mL/hr INTRAVENOUS CONTINUOUS enoxaparin 30 mg injection (LOVENOX) 30 mg SUBCUTANEOUS q 12 HR therapeutic multivitamin-minerals tablet (THERA-M PLUS) 1 tablet ORAL DAILY melatonin 6 mg tab(s) 6 mg ORAL DAILY (8 PM) sodium chloride 0.9 % (flush) 2-10 mL (BD POSIFLUSH) 2-10 mL INTRAVENOUS DIRECTED PRN And perflutren lipid microspheres 1.1 mg/mL 1.3 mL injection (DEFINITY) 1.3 mL INTRAVENOUS DIRECTED PRN piperacillin-tazobactam iv piggyback 3.375 g in dextrose (iso-osmotic) 50 mL (ZOSYN) 3.375 g INTRAVENOUS q 6 H pantoprazole 40 mg injection (PROTONIX) 40 mg INTRAVENOUS BID AC (0600/1600) senna-docusate 8.6-50 mg 1 tablet (SENNA-S) 1 tablet ORAL BID PRN metoprolol 5 mg injection (LOPRESSOR) 5 mg INTRAVENOUS q 6 H PRN methocarbamol 500 mg tab(s) (ROBAXIN) 500 mg ORAL TID PRN metoprolol tartrate (short acting) 12.5 mg tab(s) (LOPRESSOR) 12.5 mg ORAL q 8 H folic acid 1 mg tab(s) 1 mg ORAL DAILY lidocaine 4 % 2 patch (SALONPAS) 2 patch TRANSDERMAL DAILY And lidocaine patch - REMOVE OTHER AT BEDTIME And lidocaine - VERIFY PATCH OTHER q 8 H ipratropium-albuterol 3 mL nebulizer solution (DUONEB) 3 mL INHALATION q 6 H PRN acetaminophen 1,000 mg tab(s) (TYLENOL) 1,000 mg ORAL q 8 H budesonide, enteric coated 9 mg cap(s) (ENTOCORT EC) 9 mg ORAL DAILY cetirizine 10 mg tab(s) (ZYRTEC) 10 mg ORAL DAILY rosuvastatin 10 mg tab(s) (CRESTOR) 10 mg ORAL AT BEDTIME NaCl 0.9% iv flush bag 20 mL INTRAVENOUS PRN ondansetron 4 mg tab(s) (ZOFRAN) 4 mg ORAL q 6 H PRN Or ondansetron (PF) 4 mg injection (ZOFRAN) 4 mg INTRAVENOUS q 6 H PRN oxyCODONE IR 2.5-5 mg tab(s) (ROXICODONE) 2.5-5 mg ORAL q 4 H PRN thiamine 100 mg tab(s) (VITAMIN B1) 100 mg ORAL/FEEDING TUBE TID Labs: Recent Labs 01/05/25 0512 01/04/25 0926 01/04/25 0125 NA 133* -- 133* K 3.4* -- 3.5* CHLOR 101 -- 102 CO2 19* -- 21* BUN 7 -- 10 CREAT 0.74 -- 0.86 GLUC 79 -- 76 ANION 13 -- 10 CA 8.2* -- 8.0* WBC 9.83 9.18 8.02 HB 8.5* 8.1* 7.5* HCT 25.2* 24.8* 23.2* PLT 366 263 258 PHYSICAL EXAM: Genl: Appears age appropriate. No acute distress. Resting comfortably. Head/Face: Normocephalic. Atraumatic. Eyes: EOMI. Sclera not icteric, not injected Resp: Lung sounds are clear bilat. No wheezes. No rales. Breathing is non-labored on 2L at 98%. Left chest wall tenderness without crepitus. CVS: RRR as above; 2+ pulses at RA, DP, PT bilat. GI: Abdomen is soft, non-tender, not distended. Bowel sounds normoactive. No peritonitis. : Villela catheter draining clear, yellow urine. MSK: No acute deformities noted. Moderate left forearm swelling to the elbow and slightly into the upper arm with ecchymosis; no warmth, redness or induration; mild forearm tenderness to palpation; ecchymosis right elbow near IV site. Skin: Warm and dry. Not jaundiced. Various stages of ecchymosis to the upper extremities as noted above. Neuro: AANDOx1-2. Able to state name, , and that she is in the hospital. Uncertain of time/date/year. BRAGA. Follows commands. GCS 15. Psych: No acute agitation. ASSESSMENT AND PLAN: Assessment Active Hospital Problems Diagnosis Date Noted Pneumothorax 12/26/2024 Renal cyst 01/04/2025 Malnutrition of mild degree (HCC) 01/03/2025 At risk for delirium 12/31/2024 Acute cystitis without hematuria 12/31/2024 Urinary retention 12/31/2024 Hypokalemia 12/31/2024 Hyponatremia 12/31/2024 SVT (supraventricular tachycardia) (HCC) 12/31/2024 Hypophosphataemia 12/31/2024 Posttraumatic respiratory insufficiency 12/27/2024 Fall 12/26/2024 Closed fracture of multiple ribs of left side 12/26/2024 Hemopneumothorax on left 12/26/2024 Alcohol use 12/26/2024 Type 2 diabetes (HCC) 12/26/2024 Chronic IBS (irritable bowel syndrome) 12/26/2024 Chronic History of stroke 2013 Chronic History of cholecystectomy 2008 Chronic Assessment: 79-year old female s/p mechanical fall on 12/26/24 (Trauma transfer from [place]) Imaging performed: CT HNCAP ([place] [facility], 12/26) CXR, XR left elbow/forearm (12/26) CXR x 2 (12/27) CXR x 3, CTA chest, CTAP (12/28) Traumatic Injuries: Left 6-9 rib fxs with associated hemopneumothorax and SQ air Left elbow contusion with small skin tear Operations/Procedures: 1. 12/27/2024 - Left chest tube inserted 2. 12/28/2024 - Left subclavian CVC (removed 12/30) Care Plan: Left rib fractures with hemopneumothorax S/p left chest tube insertion 12/27/24 CT to water seal 12/28, removed 01/01 CXR (01/04): stable Multimodal pain control Mobilize as tolerated ETOH abuse, delirium Patient reports daily wine consumption 3-4 glasses Received Phenobarbital and Ativan at [facility] and during transfer Phenobarb taper discontinued 2/2 sedation CIWA protocol Continue Thiamine, Folate Social work consult Discontinue Seroquel due to drowsiness Acute urinary retention Villela inserted 12/28 due to high volume retention Villela catheter removed 12/31 and void trial initiated Required straight catheterization x 1 due to continued retention on 01/01 Villela catheter reinserted 01/02 due to high volume retention Urology consulted- non-op management Leukocytosis UC (12/28): +E.Coli Repeat UA (01/01): +WBCs, leuks Received Zosyn x 3 days for UTI (12/28-12/31) Continue Zosyn C.diff PCR (01/02): Positive C.diff EIA (820): Negative PO Vancomycin qid (01/03-01/12) Trend daily CBC SVT - episodes of SVT necessitating IV Metoprolol for conversion to SR - ECHO (01/02): EF 60%, mild concentric LVH, LV/RV function normal, mild 1+-2+ AV regurg - Consider increasing PO Metoprolol from 12.5 mg TID to 25 mg TID if HR remains uncontrolled - PRN IV Metoprolol 5 mg every 6 hours for HR > 120 - Tele Acute blood loss anemia, ?UGIB Hgb 7.5 from 8.4 +Tarry stool x 1 on 01/02/25 - no further bloody or tarry BM's per discussion with nursing staff Possibly related to NSAID administration with history of IBD If Hgb continues to drop, will consult GI service for assessment Continue pantoprazole BID Transfuse for Hgb < 7.0 or for signs of bleeding Trend daily CBC 7. Seen by PT/OT who advise subacute/SNF placement - [employer]EL DESIGNER: soft and bite-sized diet with thin liquids - Continue home medications as ordered - Current diet order: DIET FOOD CONSISTENCY CONTROLLED - Pain regimen: Scheduled Tylenol, PRN Oxycodone, Robaxin - Bowel regimen: None PPX: DVT: Lovenox 30 mg BID, SCDs, mobilize Ulcer: Pantoprazole BID Vit D level if > 65 yo: 46.4 Consulted Services: SICU PT/OT Social work Dispo Planning: - PT/OT recommend SNF. Case management following. Incidentals: - None Follow Up Needs: - Trauma clinic - 1 week To be discussed with Dr. Denzel Stapleton MD 01/06/2025 12:53 PM Trauma Service Pager: For questions or concerns Mon-Fri 6a-5p please page [phone]. After 5pm and on Weekends and Holidays, please page [phone] if in ICU or [phone] if on RNF. Attending Note I personally saw and examined the patient. I reviewed the resident's note. I agree with the resident's assessment and plan unless otherwise noted. Discharge planning Has Villela Signature: Josefa Mahoney MD Date: 01/06/2025 Time: 9:31 PM PROGRESS Observed: 01/05/2025 6:44 AM Status: COMPLETED Source: [facility] HNO ID: [id number] Author: PANDA HOFFMAN, RN Service: ? Author Type: Registered Nurse Type: Progress Notes Filed: 01/05/2025 06:46 Note Text: [id number]- paged surgery regarding possibly reducing IVF, pt sounding coarse., no sob noted. Spoke with Dr. Bedoya she advised, "I will look into it". CBC PNL BLD AUTO Collected: 01/05/2025 5:12 AM Statu s: F Source: [facility] Order Comment: Specimen Type : BLOOD SPECIMEN Ordering Facility: [facility] Address: [address] [place] [address] TYPE CODE TESTS RESULT OUT OF RANGE REFERENCE UNITS LAB 6690-2(INC) WBC # Bld Auto 9.83 3.70-11.00 k/uL LAB 789-8(LOINC) RBC # Bld Auto 2.43 Low 3.90-5.20 m/ uL LAB 718-7(LOINC) Hgb Bld-mCnc 8.5 Low 11.5-15.5 g/dL LAB 4544-3(LOINC) Hct VFr Bld Auto 25.2 Low 36.0-46.0 % LAB 787-2(LOINC) MCV RBC Auto 103.7 High 80.0-100.0 fL LAB 785-6(LOINC) MCH RBC Qn Auto 35.0 High 26.0-34.0 pg LAB 786-4(LOINC) MCHC RBC Auto-mCnc 33.7 30.5-36.0 g/dL LAB 57540-2(LOINC) RDW RBC-Rto 13.1 11.5-15.0 % LAB 777-3(LOINC) Platelet # Bld Auto 366 150-400 k/uL LAB 57323-6(INC) PMV Bld Auto 9.9 9.0-12.7 fL LAB 771-6(LOINC) nRBC # Bld Auto <0.01 <0.01 k/uL Performed By: #### [id number] # ### [facility] CLIA [id number] [address] [place] [id number] [place] BAS METAB 2000 PNL SERPL Collected: 5:12 AM Status: F Source: [facility] Order Comment: Specimen Type : BLOOD SPECIMEN Ordering Facility: [facility] Address: [address] [place] [address] TYPE CODE TESTS RESULT OUT OF RANGE REFERENCE UNITS LAB 2345-7(LOINC) Glucose SerPl-mCnc 79 74-99 mg/dL Result Comment: The [place] Diabetes Association (ADA) provides guidance for cutoff values for fasting glucose and random glucose. The ADA defines fasting as no caloric intake for at least 8 hours. Fasting plasma glucose results between 100 to 125 mg/dL indicate increased risk for diabetes (prediabetes). Fasting plasma glucose results greater than or equal to 126 mg/dL meet the criteria for diagnosis of diabetes. In the absence of unequivocal hyperglycemia, results should be confirmed by repeat testing. In a patient with classic symptoms of hyperglycemia or hyperglycemic crisis, random plasma glucose results greater than or equal to 200 mg/dL meet the criteria for diagnosis of diabetes. Reference: Standards of Medical Care in Diabetes 2016, [place] Diabetes [employer]. Diabetes Care. 2016.39(Suppl 1). LAB 3094-0(LOINC) BUN SerPl-mCnc 7 7-21 mg/dL LAB 2160-0(LOINC) Creat SerPl-mCnc 0.74 0.58-0.96 mg/dL LAB 2951-2(LOINC) Sodium SerPl-sCnc 133 Low 136-144 mmol/L LAB 2823-3(LOINC) Potassium SerPl-sCnc 3.4 Low 3.7-5.1 mmol/L LAB 2075-0(LOINC) Chloride SerPl-sCnc 101 98-107 mmol/L LAB 2028-9(LOINC) CO2 SerPl-sCnc 19 Low 22-30 mmol/L LAB 1863-0(LOINC) Anion Gap4 SerPl-sCnc 13 8-15 mmol/L LAB 18318-8(LOINC) Calcium SerPl-mCnc 8.2 Low 8.5-10.2 mg/dL LAB 89339-3(LOINC) eGFRcr SerPlBld CKD-EPI 2020 83 >=60 mL/min/1. 73m??? Result Comment: Estimated Gl omerular Filtration Rate (eGFR) is calculated using the 2020 CKD-EPI creatinine equation. This equation utilizes serum creatinine, sex, and age as parameters. The creatinine assay has traceable calibration to isotope dilution-mass spectrometry. Refer to KDIGO guidelines for clinical interpretation. In patients with unstable renal function, e.g. those with acute kidney injury, the eGFR may not accurately reflect actual GFR. Performed By: #### [id number] # ### [facility] CLIA [id number] [address] HEMOCCULT STL QL IA Collected: 01/05/2025 4:[address] atus: F Source: [facility] Order Comment: Specimen Type : STOOL SPECIMEN Ordering Facility: [facility] Address: [address] [place] [address] TYPE CODE TESTS RESULT OUT OF RANGE REFERENCE UNITS LAB 26978-1([facility]) Hemoccult Stl Ql IA Negative Negative Performed By: #### [id number] # ### [facility] CLIA [id number] [address] THERAPY NT Observed: 01/04/2025 4:13 PM Status: COMPLETED Source: [facility] HNO ID: [id number] Author: JEROME FRANK CCC-WOVEN LABEL DESIGNER Service: Speech/Swallow Author Type: Speech Language Pathologist Type: Therapy (PT/OT/Speech/Resp) Filed: 01/04/2025 16:15 Note Text: Speech Therapy Clinical Swallow Evaluation SERVICE DATE: 01/04/2025 SERVICE TIME: 1550 to 1605 ROOM: [id number] IMPRESSION Swallow Deficits Identified / Suspected: Oral dysphagia RECOMMENDATIONS Diet Recommendations Soft and Bite-Sized IDDSI Level 6 Thin Liquids IDDSI Level 0 Swallow Strategy Recommendations 1:1 Supervision Feed / Eat at a slow rate Sit upright 90 degrees for all PO Small Bite/Sip Rigid Oral Hygiene Nursing Recommendations Reinforce use of swallowing strategies Response to Therapy Interventions: Confusion interferes with education, Fatigue, Good participation in activities Rehabilitation Precautions: Dysphagia, Cognitive Linguistics Deficits DISCHARGE RECOMMENDATIONS Recommended Discharge Disposition: Continued Skilled Speech Therapy CURRENT HOSPITAL COURSE Transfer from [place] post fall. 12/28 CTA Chest: focal opacity at left lung base Reason for Speech Therapy Consult: dysphagia Relevant Past Medical History: GERD, ETOH use disorder HOME ENVIRONMENT / PRIOR FUNCTIONAL LEVEL Prior Functional Level: Required Assistance Patient Lives With: Family (son) Assistance Available: PRN Prior Swallowing Function/Diet Textures: Regular Consistency, Thin Liquids IDDSI Level 0 SUBJECTIVE Up in bed and agreeable to evaluation, confused THERAPY DIAGNOSIS Dysphagia, unspecified TREATMENT INTERVENTIONS Clinical Swallow Evaluation (94506) Skilled Treatment Time (minutes): 15 TRAINING AND EDUCATION PROVIDED IN Dietary Consistencies, Dysphagia Management, Swallowing Strategies THERAPEUTIC SKILLS USED Discharge planning, Education on role of discipline / importance of activity, Verbal cuing OBJECTIVE Current Status Oral Hygiene: Clear, dry oral cavity, Oral Health Assessment Tool (OHAT) Dentition: Retains Natural Dentition Current Feeding Method: Oral Current Diet Textures: Regular Consistency, Thin Liquids IDDSI Level 0 Current Level Of Communication: Verbal Current Management Of Secretions: Able to self-manage Oral Motor Exam: Within Functional Limits ORAL HEALTH ASSESSMENT TOOL Lips: 0 Tongue: 0 Gums and Tissues: 0 Saliva: 1 Natural Teeth: 0 Dentures: N/A Oral Cleanliness: 0 Dental Pain: 0 OHAT Total Score: 1 SWALLOW ASSESSMENT Position Of Patient During Assessment: Upright In Bed Feeding Method: Patient Self-Fed Consistencies Presented: Thin Liquids IDDSI Level 0, Solid Solid Oral Phase: Impaired Mastication, Mild Oral Residue Compensatory Strategies Utilized During Assessment: Alternate bites and sips, Feed / Eat at a slow rate, Sit upright 90 degrees for all PO, Small Bite/Sip, Supervision/Assistance for meals. -Poor intake per charting and RN report -Unable to follow commands to complete 3 oz water challenge -Appeared to have increased WOB throughout, denied SOB, informed RN GOALS SWALLOWING: Patient / Caregiver will demonstrate knowledge of taught compensatory strategies and dietary consistency recommendations to optimize functional swallow function without overt clinical signs and symptoms of aspiration or dysphagia Swallow Goals: Patient will tolerate Soft and Bite-Sized IDDSI Level 6 diet consistency while utilizing compensatory/swallowing strategies given minimal cues in 90% of trials so that the patient will minimize the signs/symptoms of dysphagia. Patient will tolerate Thin Liquids IDDSI Level 0 consistency while utilizing compensatory/swallowing strategies given minimal cues in 90% of trials so that the patient will minimize the signs/symptoms of dysphagia. Patient, Caregiver, Family will demonstrate adequate return of knowledge of all compensatory strategies/instruction to effectively assist the patient in immediate safety with oral intake and swallowing. Patient will participate with swallow re-assessment to determine if food and drink texture can be safely upgraded vs need for instrumentation. Speech Rehab Potential: Good Patient /Caregiver Goals: Eat/Drink Without Restrictions ACUTE CARE TREATMENT PLAN ST Frequency: 2 Times Per Week Treatment Interventions: Dysphagia Management Plan of Care Developed with: Patient, Physician, Nurse Plan for next visit: Dietary Consistencies, Dysphagia Management, Swallowing Strategies SIGNATURE: Jerome Frank [facility] LABEL DESIGNER PATIENT NAME: Cristino Verdugo DATE: January 04, 2025 TIME: 4:13 PM CASE MANAGEM Observed: 01/04/2025 3:19 PM Status: COMPLETED Source: [facility] HNO ID: [id number] Author: SHAVONNE MEIER RN Service: Care Management Author Type: Registered Nurse Type: Care Mgt Progress Note Filed: 01/04/2025 15:20 Note Text: CARE MANAGEMENT PROGRESS NOTE SERVICE DATE: 01/04/2025 SERVICE TIME: 3:19 PM LOS: 9 days Plan is for [facility] once medically ready. Tasked [employer] for auth. Tasked for 7000. Will need managed transport. Transport folder complete and on the chart. CM to follow for transitional needs SIGNATURE: Shavonne Meier RN PATIENT NAME: Cristino Verdugo DATE: January 04, 2025 TIME: 3:19 PM THERAPY NT Observed: 01/04/2025 2:53 PM Status: COMPLETED Source: [facility] HNO ID: [id number] Author: DANIEL RANGEL PT Service: Physical Therapy Author Type: Refrigeration Specialist Type: Therapy (PT/OT/Speech/Resp) Filed: 01/04/2025 16:04 Note Text: Attestation signed by Daniel Rangel PT at 01/04/2025 4:04 PM I reviewed and agree with the documentation corresponding to this therapy visit. SIGNATURE: Daniel Rangel PT DATE: January 04, 2025 TIME: 4:04 PM Physical Therapy Treatment Summary SERVICE DATE: 01/04/2025 SERVICE TIME: 1412 to 1440 ROOM: [id number] PT 6 Clicks Score: 11 DISCHARGE RECOMMENDATIONS Subacute/SNF Recommended Discharge Disposition Comments: Fall risk and poor activity tolerance ASSESSMENT Response to Therapy Interventions: Good Participation in Activities, Low Activity Tolerance, Requires Additional Time to Complete Activities Patient required increased assist and time for all tasks this session. Agreeable to PT and progressing to the recliner, however, generally lethargic with delayed reactions to questions and cues. Patient required an average of Moderate assist for all tasks- remains well below her baseline and will require SNF level therapies to address all deficits prior to discharging home. PRECAUTIONS Fall Risk, Bed/Chair Alarm CURRENT HOSPITAL COURSE Patient had a fall was transferred from [facility] 813 admitted to the ICU has rib fractures on the left side hemopneumothorax emphysema chest tube.INFORMATION SECURITY on 12/31/24 for suspected SVT with HR in 180s. Increase in delirium. Relevant Past Medical History: etoh abuse, fibro HOME LIVING Patient Lives With: Family (son) Assistance Available: Other: See Comment Comments: 2 Equipment Owned: Walker- Wheeled PRIOR FUNCTIONAL LEVEL Within Functional Limits indep at home no AD lives with son SUBJECTIVE Pt pleasant and agreeable to PT. AANDOx3-4. Able to state she is in the hospital but not which location. Slow responses throughout. THERAPY DIAGNOSIS Reduced mobility-other, Muscle Weakness (generalized), Abnormalities of gait and mobility-other TREATMENT INTERVENTIONS Therapeutic Exercise (61050), Therapeutic Activity (61920) Timed Code Treatment (minutes): 28 Skilled Treatment Time (minutes): 28 Therapeutic Exercise (63578) Treatment Minutes: 12 $ Therapeutic Exercise (48010) Billed Units: 1 unit Exercise Ankle Pumps (number of reps): 10 BLE Quad Sets (number of reps): 10 BLE Glut Sets (number of reps): 10 Heel Slides (number of reps): 10 BLE AAROM SAQ (number of reps): 10 BLE intermittent AAROM LAQ (number of reps): 10 BLE Hip Abduction (number of reps): 10 BLE intermittent AAROM Exercise: Hip adduction against pillow with 2s hold: 10 BLE (Frequent cues to continue progressing repeititions. Pt easily distracted.) Hands on assist for majority of exercises to maintain proper joint alignment. Verbal, tactile, and visual cues to encouraged respective muscle activation and optimal range of motion. Educated pt on importance of completing these exercises throughout the day to maintain current strength levels. Therapeutic Activity (11937) Treatment Minutes: 16 $ Therapeutic Activity (53513) Billed Units: 1 unit Challenged pt to complete bed mobility, transfers, and ambulation with increased independence. However, pt required increased assist, time, and effort for all. See grid below for details. TRAINING AND EDUCATION PROVIDED Assistive Device Use, Bed Mobility, Benefits of In-Hospital Mobility, Exercise Program, Falls Prevention, Gait Pattern, Reduction of Deviations, Positioning, Pre-gait Activities, Role of Physical Therapy, Sitting Balance, Standing Balance, Transfers THERAPEUTIC SKILLS USED Activity Dosing, Cuing Tactile, Cuing Verbal, Cuing Visual, Physical Assist, Muscle Activation Facilitation, Movement Facilitation FUNCTIONAL STATUS mobility performed during session in bold, other mobility completed during prior session and may no longer be correct or appropriate to complete. Bed Mobility Supine To Sit: Moderate Assistance, Additional Information x1 via long sit pivot to the left. Assist for all sequencing. HOB elevated ~40 degrees. Sit to Supine: Minimal Assistance Scooting: Maximal Assistance, Additional Information Pt attempted to complete. Ultimately, required max assist via draw sheet. Transfers Sit To Stand: Moderate Assistance, Additional Information x1 from EOB. Cues for hand placement to correct pt from pulling up on FWW. Stand To Sit: Moderate Assistance, Additional Information x1 to recliner. Repetitive cues to continue stepping back to surface and to square hips to chair. Pt with difficutly following cues. Inititated sitting prematurely. Assist to guide pt back safely. Bed to Chair Gait Minimal Assistance, Additional Information Significantly increased time to complete short distance. Required frequent cues to continue ambulation- pt often stopping/standing in the middle of the room. Cues for appropriate proximity to FWW- pt often too far behind walker. Physical assist for FWW management throughout. Gait Device: Wheeled Walker General Deviations/Observations: Rakel decreased, Improper distancing from assistive device, Difficulty changing direction/turning, Non-functional gait speed, Step length decreased Gait Distance (feet): 12ft Stairs GOALS Able to Perform HEP with: Independent Transfer Supine to/from Sit with: Independent Transfer Sit to/from Stand with: Independent Ambulate with: Independent Distance: 50 Device: Wheeled Walker Rehab Potential: Fair Fair Rehab Potential Due To: Multiple co- morbidities Progress Toward Goals: Progressing as expected ACUTE CARE TREATMENT PLAN PT Frequency: 3 Times Per Week (1-3) Treatment Interventions: Education, Strengthening, Functional Mobility Training, Balance Training SIGNATURE: Ruba Donnelly PTA PATIENT NAME: Cristino Verdugo DATE: January 04, 2025 TIME: 2:53 PM THERAPY NT Observed: 01/04/2025 11:50 AM Status: COMPLETED Source: [facility] HNO ID: [id number] Author: WASHINGTON CARDOZA OTR/Bennett Service: Occupational Therapy Author Type: Occupational Therapist Type: Therapy (PT/OT/Speech/Resp) Filed: 01/04/2025 12:48 Note Text: Occupational Therapy Treatment Summary SERVICE DATE: 01/04/2025 SERVICE TIME: 1028 to 1051 ROOM: [id number] OT 6 Clicks Score: 15 DISCHARGE RECOMMENDATIONS Subacute/SNF Recommended Discharge Disposition Comments: Patient functioning below baseline, would benefit from continued skilled OT services prior to returning home. Recommend SNF upon discharge to increase overall functional mobility and independence in ADL/IADL tasks. Recommended Discharge Disposition Due to: ADL impairment, Patient requires daily (5x/week) skilled therapy at next level of care., Cognitive deficits new/worsened ASSESSMENT Response to Therapy Interventions: Good Participation in Activities, Cognitive Deficits Patient with ongoing OT goals, as she has had a decline in function overall. Today she was more confused and drowsy. She was also not able to mobilize as far as on evaluation. Patient positioned supine in bed upon arrival, agreeable to OT session. Educated on the role of OT in the acute care setting. Pt required tactile stimuli during conversation to stay awake. Discussed DME and recommended equipment upon discharge. Completed oral and facial hygiene with set up assist and min A. Facilitated grooming tasks of combing hair with min A. Educated patient on discharge planning, answered questions on expected functional level, and fall prevention through use of call light. Frequently reoriented throughout session. Pt positioned supine in bed with bed alarm activated, call light in reach upon OT exit. Continue to recommend SNF at discharge. PRECAUTIONS Fall Risk, Bed/Chair Alarm CURRENT HOSPITAL COURSE Patient had a fall was transferred from [facility] 813 admitted to the ICU has rib fractures on the left side hemopneumothorax emphysema chest tube.INFORMATION SECURITY on 12/31/24 for suspected SVT with HR in 180s. Increase in delirium. Relevant Past Medical History: etoh abuse, fibro HOME LIVING Patient Lives With: Family (son) Assistance Available: Other: See Comment Comments: 2 Equipment Owned: Walker- Wheeled PRIOR FUNCTIONAL LEVEL Within Functional Limits indep at home no AD lives with son SUBJECTIVE Agreeable to OT COGNITION Orientation Deficits: Confused, Not oriented to Situation Responsiveness: Awake, Drowsy, Delayed Responses to Stimuli Follows Commands: 1-step Commands, Cueing Needed Cueing to Follow Commands: Moderate Executive Function Deficits: Sequencing, Insight to Deficits, Problem Solving, Safety Awareness Confusion Assessment Method (CAM - ICU Score): (!) Positive (01/04/25) 4AT Score: (!) 8 (01/04/25) Delirium Positive/Negative: Positive (01/04/25) THERAPY DIAGNOSIS Reduced mobility-other, Decreased activities of daily living (ADL) TREATMENT INTERVENTIONS Therapeutic Activity (85113), Self Intermediate Management (75118) Timed Code Treatment (minutes): 23 Skilled Treatment Time (minutes): 23 Therapeutic Activity (99141) Treatment Minutes: 8 $ Therapeutic Activity (89145) Billed Units: 1 unit Self Intermediate Management (17302) Treatment Minutes: 15 TRAINING AND EDUCATION PROVIDED Assistive Device Use, Bed Mobility, Cognitive Stimulation Activities, Command Following, Cognitive Skills, Delirium Reduction Techniques, Discharge Planning, Energy Conservation, Functional Mobility Involving ADLs, Role of Occupational Therapy, Safety/Judgment, Sitting Balance to Improve [place] with ADLs/Self-Care THERAPEUTIC SKILLS USED Activity Dosing, Cues for Sequencing/Proper Technique for Activity, Cuing Tactile, Cuing Verbal, Cuing Visual, Physical Assist, Therapeutic Use of Self FUNCTIONAL STATUS Activities of Daily Living Assist Level Additional Information Feeding Set Up Grooming Contact Guard Assistance Bathing Upper Body Minimal Assistance Bathing Lower Body Maximal Assistance Dressing Upper Body Minimal Assistance Dressing Lower Body Maximal Assistance Toileting Moderate Assistance Mobility Assist Level Additional Information Bed Mobility Supine To Sit: Moderate Assistance Sit to Stand Minimal Assistance Stand to Sit Minimal Assistance Bed to Chair Toilet/Commode Minimal Assistance Not completed Shower Functional Mobility Minimal Assistance, Additional Information Functional Mobility Device: Wheeled Walker Unable to complete this session Range of Motion: WFL Strength: Upper Extremity Comments Right Upper Extremity Strength Comments: 4/5 Left Upper Extremity Strength Comments: 3/5 BALANCE Static Sitting Balance: Good Dynamic Sitting Balance: Fair GOALS Grooming with: Set Up Upper Body Bathing with: Stand By Assistance Upper Body Dressing with: Stand By Assistance Lower Body Bathing with: Contact Guard Assistance Lower Body Dressing with: Contact Guard Assistance Toilet Hygiene with: Supervision Chair Transfer with: Supervision Toilet Transfer with: Supervision Tolerate (minutes of functional activity): 30 Functional Activity with: Supervision Demonstrate Competence with Education with: Supervision (safety, fall prevention) Increased Awareness of Cognitive Impairments as Related to ADL's/IADL's: Verbalized, Demonstrated Rehab Potential: Good Good Rehab Potential Due To: Current objective clinical presentation, Good motivation Progress Toward Goals: Progressing slower than expected ACUTE CARE TREATMENT PLAN OT Frequency: 2 Times Per Week Treatment Interventions: Education, Self Care/Home Management, Energy Conservation Training, Strengthening, Functional Mobility Training, Balance Training, Cognitive Training Plan for Next Visit: Bathing Training, Dressing Training SIGNATURE: Augusto Falcon/OT PATIENT NAME: Cristino Verdugo DATE: January 04, 2025 TIME: 11:50 AM Evaluation and/or treatment directly supervised by licensed Occupational Therapist. I reviewed and agree with the documentation corresponding to this therapy visit. SIGNATURE: SHAUN Valdez/Bennett DATE: January 04, 2025 TIME: 12:46 PM CBC PNL BLD AUTO Collected: 01/04/2025 9:26 AM Statu s: F Source: [facility] Order Comment: Specimen Type : BLOOD SPECIMEN Ordering Facility: [facility] Address: [address] [place] [address] TYPE CODE TESTS RESULT OUT OF RANGE REFERENCE UNITS LAB 6690-2(LOINC) WBC # Bld Auto 9.18 3.70-11.00 k/uL LAB 789-8(LOINC) RBC # Bld Auto 2.29 Low 3.90-5.20 m/ uL LAB 718-7(LOINC) Hgb Bld-mCnc 8.1 Low 11.5-15.5 g/dL LAB 4544-3(LOINC) Hct VFr Bld Auto 24.8 Low 36.0-46.0 % LAB 787-2(LOINC) MCV RBC Auto 108.3 High 80.0-100.0 fL LAB 785-6(LOINC) MCH RBC Qn Auto 35.4 High 26.0-34.0 pg LAB 786-4(LOINC) MCHC RBC Auto-mCnc 32.7 30.5-36.0 g/dL LAB 78661-6(LOINC) RDW RBC-Rto 13.4 11.5-15.0 % LAB 777-3(LOINC) Platelet # Bld Auto 263 150-400 k/uL LAB 60098-4([facility]) PMV Bld Auto 10.0 9.0-12.7 fL LAB 771-6([facility]) nRBC # Bld Auto <0.01 <0.01 k/uL Performed By: #### 55249-5 # ### [facility] CLIA [id number] [address] CONSULT Observed: 01/04/2025 8:41 AM Status: COMPLETED Source: [facility] HNO ID: [id number] Author: JESSENIA MAC, UNDERCOVER COP.HISTORIC PRESERVATIONIST Service: Urology Author Type: Nurse Practitioner Type: Consults Filed: 01/04/2025 11:05 Note Text: Urology Inpatient Consultation 12/26/2024 HISTORY OF PRESENT ILLNESS: The patient is a 79 year old female unknown to [facility] urology. She has a past medical history of alcohol abuse, GERD, HTN, IBS and possible aspirin/Plavix use. She presented to [place] ER after a reported fall on 12/26. Sustained left 6-9 rib fractures and associated left hemopneumothorax. Initially received chest tube left and was undergoing phenobarb taper for chronic alcohol use. Initially doing well, moving toward chest tube removal and floor transfer, however on 12/28 with persistent tachycardia that was SVT on EKG, febrile and leukopenia and continued left sided pain and was transferred to [facility] on 12/26. She has had several UA's this admission. Urine culture on 12/28 gre 10-<50K E. coli, she was treated with zosyn. A repeat UA on 01/01 showed 3+ hgb, 75 LE, 6-10 wbc, >25 rbc. She had a villela from 12/28- thru 12/31. She did void a few times. Then required straight catheterization on 01/01 for 350cc and on 01/02 for 550cc around 1030pm. Villela was replaced on 01/02 at 1am- amount of immediate output is not documented. No bladder scans documented. Consultation requested by TEN Saleh for an opinion regarding high volume urinary retention requiring second villela catheter. My final recommendations will be communicated back to the requesting physician by way of shared Medical record or letter to requesting physician via US mail. Pertinent Hospital workup: Wbc: 8.02 Hgb: 7.5 Scr: 0.86 (baseline) UA: 01/01- 3+ hgb, 75 LE, 6-10 wbc, >25 rbc Ucx: -<50K E. Coli Blood cultures- no growth day 5 CT A/P: 12/28/24- Left upper pole cyst measuring 5 cm x 5 cm. No hydronephrosis or renal calculi. Villela catheter in the urinary bladder Pt seen in her room. Pt drowsy. Easily arouses but frequently falls back to sleep requiring stimuli to arouse. She states she saw a urologist years ago for issues with urinating, unsure who she saw or any treatment done. She is unsure of details surrounding fall, how long she's been here, thinks [facility]. Unsure year, thinks it is October, knows Timmy is president. Name and correct. She denies prior issues with urinary retention in the past. Feels that she empties her bladder all the way at baseline. She denies any dysuria or hematuria. She denies any suprapubic pain and no b/l flank pain. She thinks she is eating and drinking well and thinks she has been OOB. OT is about to work with her. PAST MEDICAL HISTORY: PAST MEDICAL HISTORY Diagnosis Date GERD (Gastroesophageal Reflux Disease) HTN (Hypertension), Benign IBS (Irritable Bowel Syndrome) PAST SURGICAL HISTORY: PAST SURGICAL HISTORY Procedure Laterality Date L'SCOPE DULCE MARIA W/CHOLANGIOGRAPHY 03[birth year]03[birth year]09 ALLERGIES: ALLERGIES Allergen Reactions Milk Containing Pro* Diarrhea Penicillins HOME MEDICATIONS: Prescriptions Prior to Admission[1] FAMILY HISTORY: No family history on file. Social History: Tobacco Use: Not on file Alcohol Use: Not on file ROS: Constitutional: negative for chills and fevers HEENT: no blurry vision or eye redness Respiratory: negative for hemoptysis and shortness of breath Cardiovascular: negative for dyspnea and syncope Gastrointestinal: negative for jaundice, nausea and vomiting Genitourinary:negative for dysuria and hematuria, + urinary retention Hematologic/lymphatic: negative for bleeding Integumentary: no new bruises or lesions Musculoskeletal:negative for muscle weakness Neurological: negative for coordination problems and seizures All other systems negative PHYSICAL EXAM: VITALS: 01/03/25 2344 01/04/25 0302 01/04/25 0526 01/04/25 0718 BP: 110/65 117/78 147/72 134/63 Pulse: 91 91 (!) 142 99 Resp: 16 18 18 Temp: 37.4 ?C (99.3 ?F) 37.8 ?C (100 ?F) 37.8 ?C (100 ?F) TempSrc: Axillary Axillary Oral SpO2: 98% 99% 98% Weight: Height: General: Drowsy, arouses but falls back to sleep, in no acute distress Head: Normocephalic, atraumatic Neck: supple, trachea is midline, no obvious masses Respiratory: normal effort, no audible wheezes Cardiovascular: regular pulse and no cyanosis Musculoskeletal: moving all extremities, normal tone Skin: warm and dry, + ecchymosis and edema Left arm Psych: normal mood and affect, oriented to self, president, see hpi Abdomen: soft, non distended, non tender, no organomegaly, no hernias : no b.l cva ttp, no suprapubic ttp, 16F villela draining yellow urine Participation of a fellow, resident, medical student, or advanced practice provider student in performing the sensitive examination was discussed with the patient or authorized videotape sales representative. The patient or authorized videotape sales representative has agreed to proceed with the sensitive examination. DATA: LABS: BMP: . Glucose (mg/dL) Date Value 01/04/2025 76 Potassium (mmol/L) Date Value 01/04/2025 3.5 Sodium (mmol/L) Date Value 01/04/2025 133 Chloride (mmol/L) Date Value 01/04/2025 102 CO2 (mmol/L) Date Value 01/04/2025 21 Creatinine (mg/dL) Date Value 01/04/2025 0.86 BUN (mg/dL) Date Value 01/04/2025 10 Anion Gap (mmol/L) Date Value 01/04/2025 10 Calcium, Total (mg/dL) Date Value 01/04/2025 8.0 CBC: Hemoglobin (g/dL) Date Value 01/04/2025 7.5 Hematocrit (%) Date Value 01/04/2025 23.2 WBC (k/uL) Date Value 01/04/2025 8.02 Platelet Count (k/uL) Date Value 01/04/2025 258 Urinalysis: pH, Arterial Date Value Ref Range Status 12/28/2024 7.51 (H) 7.35 - 7.45 Final Specific [place], Ur Date Value Ref Range Status 01/01/2025 1.039 (H) 1.005 - 1.030 Final Glucose, Urine Date Value Ref Range Status 01/01/2025 Negative Trace, Negative Final Bilirubin, Urine Date Value Ref Range Status 01/01/2025 1+ (A) Negative Final Comment: Suggest correlation with clinical findings and serum bilirubin if clinically indicated. Ketones, Urine Date Value Ref Range Status 01/01/2025 1+ (A) Negative, Trace Final Hemoglobin/Blood,Ur Date Value Ref Range Status 01/01/2025 3+ (A) Negative, Trace Final Protein, Urine Date Value Ref Range Status 01/01/2025 1+ (A) Trace, Negative Final Nitrites Date Value Ref Range Status 01/01/2025 Negative Negative Final WBC, Urine Date Value Ref Range Status 01/01/2025 6-10 /HPF (A) 0-5 /HPF Final Urine Culture: 12/28/24 50,000-<100,000 CFU/ml Escherichia coli RADIOLOGY: CT A/P W 12/28/24 IMPRESSION: 1. No CT evidence of pulmonary embolism. 2. Left chest tube with trace left-sided pneumothorax. 3. Multiple left-sided rib fractures as described above. 4. No acute CT findings in the abdomen or pelvis. ABDOMEN/PELVIS: Liver: No mass. Biliary: No bile duct dilation. Cholecystectomy. Spleen: No mass. No splenomegaly. Pancreas: No mass or duct dilation. Adrenals: No mass. Kidneys: Left upper pole cyst measuring 5 cm x 5 cm. No hydronephrosis or renal calculi. GI tract: No dilation or wall thickening. Colonic diverticulosis. Lymph nodes: No abdominal or pelvic lymphadenopathy. Mesentery/Peritoneum: No ascites or mass. Retroperitoneum: No mass. Vasculature: - Abdominal aorta and iliac arteries: Atherosclerotic calcifications without aneurysm. - Celiac and SMA: Atherosclerotic calcifications at the origins. - Portal venous system (SMV, splenic vein, portal vein and branches): Patent. - Hepatic veins: Patent. Pelvis: Villela catheter in the urinary bladder. Uterus is present. Bones/soft tissues: No acute osseous abnormality. Localizer images: No additional findings. Problem List Pneumothorax (POA: Yes) Fall (POA: Yes) Closed fracture of multiple ribs of left side (POA: Yes) Hemopneumothorax on left (POA: Yes) Alcohol use (POA: Yes) Type 2 diabetes (HCC) (POA: Yes) History of stroke (POA: Yes) History of cholecystectomy (POA: Yes) IBS (irritable bowel syndrome) (POA: Yes) Posttraumatic respiratory insufficiency (POA: Yes) At risk for delirium (POA: Yes) Acute cystitis without hematuria (POA: Clinically Undetermined) Acute urinary retention (POA: Clinically Undetermined) Hypokalemia (POA: No) Hyponatremia (POA: No) SVT (supraventricular tachycardia) (HCC) (POA: Status not on file) Hypophosphataemia (POA: Status not on file) Malnutrition of mild degree (HCC) (POA: Status not on file) IMPRESSION: 79 year old female with AUR, failed VT. - 12/28- thru 12/31. Villela - 01/01 straight catheterization for 350cc - 01/02 straight catheterization for for 550cc - 01/02- Villela was replaced- amount of immediate output is not documented. No bladder scans documented PLAN: 1) - No acute urologic surgical intervention indicated at this time - Maintain villela catheter to straight drain - Monitor labs and vitals - Bowel regimen per primary service- + small BM's last few days - CT demonstrates no hydronephrosis - Can consider formal urology driven void trial prior to discharge if milestones of mentation at baseline, pt is ambulating and having regular bowel movements are met. Once these milestones are all met, contact the on-call urology resident in the card lacer for void trial instructions. Would recommend doing void trial prior to the day of anticipated discharge if able. 2) Left upper pole cyst measuring 5 cm x 5 cm. - pt will need outpatient follow-up for renal cyst - She can follow-up with urology as outpatient- pt lives in [place] Thank you for allowing me to participate in the care of your patient Jessenia MacDULCE.HISTORIC PRESERVATIONIST 01/04/2025 8:41 AM PLEASE PAGE RESIDENT REAL ESTATE LAWYER WITH QUESTIONS OR CONCERNS. THANKS [1] budesonide, enteric coated (ENTOCORT EC) 3 mg 24 hr capsule, Take 9 mg by mouth once daily., Disp: , Rfl: clopidogrel (PLAVIX) 75 mg tablet, Take 75 mg by mouth once daily., Disp: , Rfl: fexofenadine (JERALD) 180 mg tablet, Take 180 mg by mouth once daily., Disp: , Rfl:fluticasone (FLONASE ALLERGY RELIEF) 50 mcg/actuation nasal spray, Use 2 sprays in each nostril once daily., Disp: , Rfl: Ibandronate 150 mg tablet, Take 150 mg by mouth once every month. In AM with cup of water on empty stomach. Nothing else by mouth and stay upright for 60 min., Disp: , Rfl: irbesartan (AVAPRO) 75 mg tablet, Take 75 mg by mouth daily at bedtime., Disp: , Rfl:metoprolol tartrate, short acting, (LOPRESSOR) 25 mg tablet, Take 12.5 mg by mouth two times a day., Disp: , Rfl: rosuvastatin (CRESTOR) 10 mg tablet, Take 10 mg by mouth once daily., Disp: , Rfl: PROGRESS Observed: 01/04/2025 8:01 AM Status: COMPLETED Source: [facility] HNO ID: [id number] Author: YOU DELGADO PA-C Service: General Surgery Author Type: Physician Supervisor Contact And Service Clerks Type: Progress Notes Filed: 01/04/2025 08:32 Note Text: Trauma Surgery Progress Note SERVICE DATE: 01/04/2025 Trauma Service Pager: For questions or concerns Mon-Fri 6a-5p please page [phone]. After 5pm and on Weekends and Holidays, please page [phone] if in ICU or [phone] if on RNF.SUBJECTIVE: NAEON. Patient awake watching television this morning. She is alert and oriented to self and notes that she is in the hospital. She intermittently stares at the television and fails to answer some questions. Pain is controlled. She states that she is "doing better." She denies sob, abdominal pain, n/v, chills or sweats. RN present at bedside. No bloody or tarry BM's noted overnight or this morning - minimal greenish stool per description. LUE swollen at the forearm and elbow. Patient was also tachycardic into the 140s this morning and she was given IV Lopressor x 1. OBJECTIVE: Vitals: Temp (24hrs), Av.2 ?C (99 ?F), Min:36.6 ?C (97.9 ?F), Max:37.8 ?C (100 ?F) BP 134/63 Pulse 99 Temp 37.8 ?C (100 ?F) (Oral) Resp 18 Ht 156.2 cm (5' 1.5") Wt 66.7 kg (147 lb 0.8 oz) SpO2 98% BMI 27.34 kg/m? O2 Therapy: Nasal Cannula IANDO: Date 01/03/25 07 - 01/04/25 0659 01/04/25 07 - 01/05/25 0659 Shift 2681-1418 7475-8551 5945-4852 24 Hour Total 6188-4086 5377-4992 0807-5861 24 Hour Total INTAKE Shift Total OUTPUT Urine 75 500 575 Output ( Indwelling Urinary Catheter 01/02/25 0100 Villela 16 Fr) 75 500 575 # of BMs Stool Incontinence 1 x 1 x Number of BMs 2 x 1 x 1 x 4 x Shift Total 75 500 575 Weight (kg) 66.7 66.7 66.7 66.7 66.7 66.7 66.7 66.7 MEDICATIONS: Current Facility-Administered Medications Medication Dose Route Frequency vancomycin 125 mg cap(s) (VANCOCIN) 125 mg ORAL QID NaCl 0.9% iv infusion 100 mL/hr INTRAVENOUS CONTINUOUS [Order Held by LIP] enoxaparin 30 mg injection (LOVENOX) 30 mg SUBCUTANEOUS q 12 HR therapeutic multivitamin-minerals tablet (THERA-M PLUS) 1 tablet ORAL DAILY melatonin 6 mg tab(s) 6 mg ORAL DAILY (8 PM) sodium chloride 0.9 % (flush) 2-10 mL (BD POSIFLUSH) 2-10 mL INTRAVENOUS DIRECTED PRN And perflutren lipid microspheres 1.1 mg/mL 1.3 mL injection (DEFINITY) 1.3 mL INTRAVENOUS DIRECTED PRN piperacillin-tazobactam iv piggyback 3.375 g in dextrose (iso-osmotic) 50 mL (ZOSYN) 3.375 g INTRAVENOUS q 6 H pantoprazole 40 mg injection (PROTONIX) 40 mg INTRAVENOUS BID AC (0600/1600) senna-docusate 8.6-50 mg 1 tablet (SENNA-S) 1 tablet ORAL BID PRN metoprolol 5 mg injection (LOPRESSOR) 5 mg INTRAVENOUS q 6 H PRN methocarbamol 500 mg tab(s) (ROBAXIN) 500 mg ORAL TID PRN metoprolol tartrate (short acting) 12.5 mg tab(s) (LOPRESSOR) 12.5 mg ORAL q 8 H folic acid 1 mg tab(s) 1 mg ORAL DAILY lidocaine 4 % 2 patch (SALONPAS) 2 patch TRANSDERMAL DAILY And lidocaine patch - REMOVE OTHER AT BEDTIME And lidocaine - VERIFY PATCH OTHER q 8 H ipratropium-albuterol 3 mL nebulizer solution (DUONEB) 3 mL INHALATION q 6 H PRN acetaminophen 1,000 mg tab(s) (TYLENOL) 1,000 mg ORAL q 8 H budesonide, enteric coated 9 mg cap(s) (ENTOCORT EC) 9 mg ORAL DAILY cetirizine 10 mg tab(s) (ZYRTEC) 10 mg ORAL DAILY rosuvastatin 10 mg tab(s) (CRESTOR) 10 mg ORAL AT BEDTIME NaCl 0.9% iv flush bag 20 mL INTRAVENOUS PRN ondansetron 4 mg tab(s) (ZOFRAN) 4 mg ORAL q 6 H PRN Or ondansetron (PF) 4 mg injection (ZOFRAN) 4 mg INTRAVENOUS q 6 H PRN oxyCODONE IR 2.5-5 mg tab(s) (ROXICODONE) 2.5-5 mg ORAL q 4 H PRN thiamine 100 mg tab(s) (VITAMIN B1) 100 mg ORAL/FEEDING TUBE TID Labs: Recent Labs 01/04/25 0125 01/03/25 0359 01/02/25 0031 01/01/25 2213 NA 133* 133* < > 135* K 3.5* 3.7 < > 4.0 CHLOR 102 100 < > 104 CO2 21* 19* < > 20* BUN 10 10 < > 15 CREAT 0.86 0.72 < > 0.59 GLUC 76 84 < > 97 ANION 10 14 < > 11 CA 8.0* 8.5 < > 9.3 MG -- -- -- 1.9 P -- -- -- 2.5* WBC 8.02 8.21 < > -- HB 7.5* 8.4* < > -- HCT 23.2* 26.2* < > -- PLT 258 253 < > -- < > = values in this interval not displayed. PHYSICAL EXAM: Genl: Appears age appropriate. No acute distress. Resting comfortably. Head/Face: Normocephalic. Atraumatic. Eyes: EOMI. Sclera not icteric, not injected Resp: Lung sounds are clear bilat. No wheezes. No rales. Breathing is non-labored on 2L at 98%. Left chest wall tenderness without crepitus. CVS: RRR as above; 2+ pulses at RA, DP, PT bilat. GI: Abdomen is soft, non-tender, not distended. Bowel sounds normoactive. No peritonitis. : Villela catheter draining clear, yellow urine. MSK: No acute deformities noted. Moderate left forearm swelling to the elbow and slightly into the upper arm with ecchymosis; no warmth, redness or induration; mild forearm tenderness to palpation; ecchymosis right elbow near IV site. Skin: Warm and dry. Not jaundiced. Various stages of ecchymosis to the upper extremities as noted above. Neuro: AANDOx1-2. Able to state name, , and that she is in the hospital. Uncertain of time/date/year. BRAGA. Follows commands. GCS 15. Psych: No acute agitation. ASSESSMENT AND PLAN: Assessment Active Hospital Problems Diagnosis Date Noted Pneumothorax 12/26/2024 Malnutrition of mild degree (HCC) 01/03/2025 At risk for delirium 12/31/2024 Acute cystitis without hematuria 12/31/2024 Acute urinary retention 12/31/2024 Hypokalemia 12/31/2024 Hyponatremia 12/31/2024 SVT (supraventricular tachycardia) (HCC) 12/31/2024 Hypophosphataemia 12/31/2024 Posttraumatic respiratory insufficiency 12/27/2024 Fall 12/26/2024 Closed fracture of multiple ribs of left side 12/26/2024 Hemopneumothorax on left 12/26/2024 Alcohol use 12/26/2024 Type 2 diabetes (HCC) 12/26/2024 Chronic IBS (irritable bowel syndrome) 12/26/2024 Chronic History of stroke 2013 Chronic History of cholecystectomy 2008 Chronic Assessment: 79-year old female s/p mechanical fall on 12/26/24 (Trauma transfer from [place]) Imaging performed: CT HNCAP ([place] [facility], 12/26) CXR, XR left elbow/forearm (12/26) CXR x 2 (12/27) CXR x 3, CTA chest, CTAP (12/28) CXR (12/29) CXR (12/30) CXR (12/31) CT brain, CXR x 2, KUB (01/01) CXR (01/02) CXR (01/03) CXR (01/04) Traumatic Injuries: Left 6-9 rib fractures with associated hemopneumothorax and subcutaneous emphysema Left elbow contusion with small skin tear Operations/Procedures: 1. 12/27/2024 - Left chest tube inserted 2. 12/28/2024 - Left subclavian CVC (removed 12/30) Care Plan: Left rib fractures with hemopneumothorax S/p left chest tube insertion 12/27/24 CT to water seal 12/28, removed 01/01 CXR (01/04): stable chest Respiratory status stable on 2L NC Wean supplemental oxygen as tolerated Aggressive pulmonary hygiene Multimodal pain control Mobilize as tolerated ETOH abuse, delirium Patient reports daily wine consumption 3-4 glasses Received Phenobarbital and Ativan at [place] [facility] and during transfer Phenobarb taper discontinued 2/2 sedation CIWA protocol Continue Thiamine, Folate Social work consult Discontinue Seroquel due to drowsiness Continue Melatonin at HS Acute urinary retention Villela inserted 12/28 due to high volume retention Villela catheter removed 12/31 and void trial initiated Required straight catheterization x 1 due to continued retention on 01/01 Villela catheter reinserted 01/02 due to high volume retention Consult urology for assessment 01/04 Leukocytosis WBCs 8.02 from 8.2 Afebrile, HDS Respiratory status stable on 1-2L NC Blood cultures (12/28): NGTD UA (12/28): +WBCs, leuks UC (12/28): +E.Coli Repeat UA (01/01): +WBCs, leuks Received Zosyn x 3 days for UTI (12/28-12/31) Continue Zosyn based on previous sensitivities for UTI to complete a 7-day course (01/02-01/06) C.diff PCR (01/02): Positive C.diff EIA (820): Negative Continue PO Vancomycin QID (01/03-01/12) Trend daily CBC SVT Patient with episodes of SVT necessitating IV Metoprolol for conversion to SR ECHO (01/02): EF 60%, mild concentric LVH, LV/RV function normal, mild 1+-2+ AV regurg Consider increasing PO Metoprolol from 12.5 mg TID to 25 mg TID if HR remains uncontrolled PRN IV Metoprolol 5 mg every 6 hours for HR > 120 Continuous cardiac monitoring Monitor electrolytes and supplement as needed Acute blood loss anemia, ?UGIB Hgb 7.5 from 8.4 +Tarry stool x 1 on 01/02/25 - no further bloody or tarry BM's per discussion with nursing staff Possibly related to NSAID administration with history of IBD Check repeat CBC @ 0900 If Hgb continues to drop, will consult GI service for assessment Continue Pantoprazole BID Transfuse for Hgb < 7.0 or for signs of bleeding Trend daily CBC Continue home medications as ordered Current diet order: DIET REGULAR Pain regimen: Scheduled Tylenol, PRN Oxycodone, Robaxin Bowel regimen: None Labs: As above PPX: DVT: Lovenox 30 mg BID, SCDs, mobilize Ulcer: Pantoprazole BID Vit D level if > 65 yo: 46.4 Consulted Services: SICU PT/OT Social work Dispo Planning: PT/OT recommend SNF. Case management following. Incidentals: None Follow Up Needs: Trauma clinic - 1 week Staff Trauma Surgeon: Dr. Mahoney Portions of text from this note were copied from prior patient encounter. All relevant information was updated to reflect most-recent clinical decision-making and plan of care January 04, 2025. SIGNATURE: You Delgado PA-C PATIENT NAME: Cristino Verdugo DATE: 01/04/2025 TIME: 8:01 AM Pager: see below Trauma Service Pager: For questions or concerns Mon-Fri 6a-5p please page [phone]. After 5pm and on Weekends and Holidays, please page [phone] if in ICU or [phone] if on RNF. ECG COMPLETE Observed: 01/04/2025 6:43 AM Status: F Source: [facility] Ventricular Rate : 104 BPM Atrial Rate : 104 BPM P-R Interval : 168 ms QRS Duration : 82 ms Q-T Interval : 342 ms QTC Calculation(Bazett) : 449 ms Calculated P [place] : -9 degrees Calculated R [place] : 3 degrees Calculated T [place] : 6 degrees SINUS TACHYCARDIA Poor R-wave progression ABNORMAL ECG WHEN COMPARED WITH ECG OF 01-Jan-2025 22:37, QUESTIONABLE CHANGE IN INITIAL FORCES OF SEPTAL LEADS Confirmed by ALLY BILLINGS MD ([id number]) on 01/04/2025 2:20:03 PM NAME : CRISTINO MATA PID : [id number] : 1945 Gender : Female Race : ORD : [id number] Procedure Date : Jan 04 2025 06:43:45 Edit Date : Jan 04 2025 14:20:06 Diagnosis: SINUS TACHYCARDIA Poor R-wave progression ABNORMAL ECG WHEN COMPARED WITH ECG OF 01-Jan-2025 22:37, QUESTIONABLE CHANGE IN INITIAL FORCES OF SEPTAL LEADS Confirmed by ALLY BILLINGS MD ([id number]) on 01/04/2025 2:20:03 PM Test Reason : Arrhythmia Location : 200 : [facility] 4209 Overread By : ALLY BILLINGS MD Edited By : ALLY BILLINGS MD Referred By : , Acquired by : KATHY YOO XR CHEST 1V FRONTAL Observed: 01/04/2025 4:25 AM Status: F Source: [facility] * * *Final Report* * * DATE OF EXAM: Jan 04 2025 4:25AM AKX [id number] - XR CHEST 1V FRONTAL / PROCEDURE REASON: Evaluate tube, line, or lead position * * * * Physician Interpretation * * * * EXAMINATION: CHEST RADIOGRAPH (SINGLE VIEW AP OR PA) CLINICAL HISTORY: Evaluate tube, line, or lead position MQ: XC1_5 Comparison: 01/03/2025 RESULT: Lines, tubes, and devices: Overlying cardiac monitoring leads. Lungs and pleura: Focal opacity at the left lung base persists. No pleural effusion. Stable mild left apical thickening. No visible pneumothorax. Cardiomediastinal silhouette: Normal cardiomediastinal silhouette. Other: Multiple left-sided rib fractures. Minimal subcutaneous emphysema along the left chest wall. Vertebroplasty of contiguous levels in the lower thoracic spine. IMPRESSION: Stable chest. Cloud Subject Matter Expert: PSCB Transcribe Date/Time: Jan 04 2025 7:20A Dictated by : CORTNEY MROENO MD This examination was interpreted and the report reviewed and electronically signed by: CORTNEY MORENO MD on Jan 04 2025 7:26AM EST [id number] BAS METAB 1999 PNL SERPL Collected: 1:25 AM Status: F Source: [facility] Order Comment: Specimen Type : BLOOD SPECIMEN Ordering Facility: [facility] Address: [address] [place] [address] TYPE CODE TESTS RESULT OUT OF RANGE REFERENCE UNITS LAB 2345-7(LOINC) Glucose SerPl-mCnc 76 74-99 mg/dL Result Comment: The [place] Diabetes Association (ADA) provides guidance for cutoff values for fasting glucose and random glucose. The ADA defines fasting as no caloric intake for at least 8 hours. Fasting plasma glucose results between 100 to 125 mg/dL indicate increased risk for diabetes (prediabetes). Fasting plasma glucose results greater than or equal to 126 mg/dL meet the criteria for diagnosis of diabetes. In the absence of unequivocal hyperglycemia, results should be confirmed by repeat testing. In a patient with classic symptoms of hyperglycemia or hyperglycemic crisis, random plasma glucose results greater than or equal to 200 mg/dL meet the criteria for diagnosis of diabetes. Reference: Standards of Medical Care in Diabetes 2016, [place] Diabetes Association. Diabetes Care. 2016.39(Suppl 1). LAB 3094-0(LOINC) BUN SerPl-mCnc 10 7-21 mg/dL LAB 2160-0(LOINC) Creat SerPl-mCnc 0.86 0.58-0.96 mg/dL LAB 2951-2(LOINC) Sodium SerPl-sCnc 133 Low 136-144 mmol/L LAB 2823-3(LOINC) Potassium SerPl-sCnc 3.5 Low 3.7-5.1 mmol/L LAB 2075-0(LOINC) Chloride SerPl-sCnc 102 98-107 mmol/L LAB 2028-9(LOINC) CO2 SerPl-sCnc 21 Low 22-30 mmol/L LAB 1863-0(LOINC) Anion Gap4 SerPl-sCnc 10 8-15 mmol/L LAB 78114-2(LOINC) Calcium SerPl-mCnc 8.0 Low 8.5-10.2 mg/dL LAB 98804-6(LOINC) eGFRcr SerPlBld CKD-EPI 2020 70 >=60 mL/min/1. 73m??? Result Comment: Estimated Gl omerular Filtration Rate (eGFR) is calculated using the 2020 CKD-EPI creatinine equation. This equation utilizes serum creatinine, sex, and age as parameters. The creatinine assay has traceable calibration to isotope dilution-mass spectrometry. Refer to KDIGO guidelines for clinical interpretation. In patients with unstable renal function, e.g. those with acute kidney injury, the eGFR may not accurately reflect actual GFR. Performed By: #### [id number] # ### [facility] CLIA [id number] [address] [facility] CBC PNL BLD AUTO Collected: 01/04/2025 1:25 AM Statu s: F Source: [facility] Order Comment: Specimen Type : BLOOD SPECIMEN Ordering Facility: [facility] Address: [address] [place] [address] TYPE CODE TESTS RESULT OUT OF RANGE REFERENCE UNITS LAB 6690-2([facility]) WBC # Bld Auto 8.02 3.70-11.00 k/uL LAB 789-8(LOINC) RBC # Bld Auto 2.17 Low 3.90-5.20 m/ uL LAB 718-7(LOINC) Hgb Bld-mCnc 7.5 Low 11.5-15.5 g/dL LAB 4544-3(LOINC) Hct VFr Bld Auto 23.2 Low 36.0-46.0 % LAB 787-2(LOINC) MCV RBC Auto 106.9 High 80.0-100.0 fL LAB 785-6(LOINC) MCH RBC Qn Auto 34.6 High 26.0-34.0 pg LAB 786-4(LOINC) MCHC RBC Auto-mCnc 32.3 30.5-36.0 g/dL LAB 91962-8(LOINC) RDW RBC-Rto 13.2 11.5-15.0 % LAB 777-3(LOINC) Platelet # Bld Auto 258 150-400 k/uL LAB 44539-8([facility]) PMV Bld Auto 10.2 9.0-12.7 fL LAB 771-6([facility]) nRBC # Bld Auto <0.01 <0.01 k/uL Performed By: #### [id number] # ### [facility] CLIA [id number] [address] CASE MANAGEM Observed: 01/03/2025 4:42 PM Status: COMPLETED Source: [facility] HNO ID: [id number] Author: SHAVONNE MEIER RN Service: Care Management Author Type: Registered Nurse Type: Care Mgt Progress Note Filed: 01/03/2025 16:43 Note Text: CARE MANAGEMENT PROGRESS NOTE SERVICE DATE: 01/03/2025 SERVICE TIME: 4:42 PM LOS: 8 days Spoke with son Pankaj via phone. He confirms FOC is [facility]. Patient will need auth, 7000 and managed transport. CM to follow for transitional needs SIGNATURE: Shavonne Meier RN PATIENT NAME: Cristino Verdugo DATE: January 03, 2025 TIME: 4:42 PM NUTRITION Observed: 01/03/2025 9:42 AM Status: COMPLETED Source: [facility] HNO ID: [id number] Author: STEPHANIE LYONS RD Service: Nutrition Therapy Author Type: Registered Dietitian Type: Nutrition Filed: 01/03/2025 10:31 Note Text: INITIAL ASSESSMENT SERVICE DATE: 01/03/2025 SERVICE TIME: Start Time: 941 Nutrition Assessment: Recommended Malnutrition Diagnosis: Mild Protein-Calorie Malnutrition In the context of: Acute Illness or Injury Based on: Insufficient Energy Intake Nutrition Diagnosis: Problem: Suboptimal protein/energy intake Related to: Acute illness As evidenced by: Intake records Care Plan: Continue current diet Supplements: [employer] 1.4, [employer] 1.0 (allergy to milk products.) Refer to: Speech/Language (eval to ensure diet appropriate for pt give confusion.) Vitamins and Minerals: Multivitamin with minerals Medications: Appetite stimulants Monitor and Evaluation: Meet greater than 75% of estimated needs, Monitor labs, I/Os, vital signs, weight Discharge Recommendations: Diet, Oral Supplements Diet: regular vs [employer] Oral Supplements: high mike/protein supplement/snack of choice 2-3x/day between meals HPI: 79 year old female admitted for Pneumothorax [J93.9] CT tubed 01/01, monitoring CXRs. Intake History: Nutrition Intake Prior to Admission: Unable to determine (Pt able to name , place and time but challenged to answer any specific questions.) Current Nutrition Intake: 0-25% estimated energy needs Current Intake Over time: Greater than or equal to 7 days RN cut up food for patient, but observed <25% consumed at time of encounter. Emphasized importance of mike/protein, able to state her allergy of 'milk protein' (=diarrhea), encouraged to eat + drink ONS. Dosing Weight: 49.9 kg (110 lb) Dosing Weight Type: [place] body weight Estimated kilocalorie needs: 4528-6028 Calorie Calculation Method: 25-30 kcals/kg Estimated protein needs (grams): 60-75 Grams protein determined by: 1.2 - 1.5 g/kg Diet Orders (From admission, onward) Start Ordered 12/27/24 1400 DIET SUPPLEMENTS START NOW Question Answer Comment Supplement 1 ENSURE PLUS HIGH PROTEIN CHOCOLATE Supplement 1 Frequency THREE TIMES/DAY WITH MEALS 12/27/24 1348 12/27/24 1115 DIET REGULAR START NOW 12/27/24 1110 Anthropometrics: Height: 156.2 cm (5' 1.5") Weight: 66.7 kg (147 lb 0.8 oz) (multiple pillows and blankets) unknown. No recent wt hx per chart review. Body mass index is 27.34 kg/m?. Weight change percentage over time: Bedscale obtained at 64.3kg. No recent wt hx to report on Weight Change: Unable to determine Physical Exam: Subcutaneous fat loss: No Subcutaneous Fat Loss Muscle loss: No Muscle Loss Potential micronutrient deficiency: No deficiency identified Edema/Ascites: Upper extremities, Lower extremities Upper Extremity: Non-pitting Lower Extremity: Non-pitting GI Symptoms: Anorexia Functional Status: Unable to assess Potential Signs of Inflammation: Chronic condition, Imaging studies, Microbiologic cultures HTN, GERD, IBS Lines, Drains, and Airways Drain Duration Indwelling Urinary Catheter 01/02/25 0100 Villela 16 Fr 1 day MNT Billing: $ Routine Care : 1 unit Time Spent (mins): 6 SIGNATURE: Stephanie Lyons RD PATIENT NAME: Cristino Verdugo DATE: January 03, 2025 TIME: 10:20 AM PROGRESS Observed: 01/03/2025 8:47 AM Status: COMPLETED [facility] [id number] Author: CHRISTIE NEIL APRN.RENNY Service: General Surgery Author Type: Nurse Practitioner Type: Progress Notes Filed: 01/03/2025 09:59 Note Text: Trauma Surgery Progress Note SERVICE DATE: 01/03/2025 Trauma Service Pager: For questions or concerns Mon-Fri 6a-5p please page [phone]. After 5pm and on Weekends and Holidays, please page [phone] if in ICU or [phone] if on RNF.SUBJECTIVE: No acute overnight events. Patient is drowsy, but easily arousable to voice. She is slow to answer questions. She is alert and oriented to self only, reoriented to time, place. Respiratory status stable on 1L NC. She reports abdominal pain, however, she is non-tender to palpation. She denies nausea, vomiting. +Diarrhea. OBJECTIVE: Vitals: Temp (24hrs), Av.1 ?C (98.7 ?F), Min:36.4 ?C (97.5 ?F), Max:37.7 ?C (99.9 ?F) BP 146/79 Pulse 101 Temp 37.7 ?C (99.9 ?F) (Oral) Resp 16 Ht 156.2 cm (5' 1.5") Wt 66.7 kg (147 lb 0.8 oz) SpO2 96% BMI 27.34 kg/m? O2 Therapy: Nasal Cannula IANDO: Date 01/02/25 07 - 01/03/25 0659 01/03/25 0700 - 01/04/25 0659 Shift 7321-1376 2727-4921 7287-9126 24 Hour Total 3691-2385 2370-7716 3350-1413 24 Hour Total INTAKE Shift Total OUTPUT Urine 974 140 4511 1725 Urine Incontinence/Not Saved 1 x 1 x Output ( Indwelling Urinary Catheter 01/02/25 0100 Villela 16 Fr) 812 681 0840 1725 # of BMs Stool Incontinence 1 x 1 x 2 x Number of BMs 1 x 1 x 1 x 3 x Shift Total 166 866 9915 1725 Weight (kg) 57 57 66.7 66.7 66.7 66.7 66.7 66.7 MEDICATIONS: Current Facility-Administered Medications Medication Dose Route Frequency vancomycin 125 mg cap(s) (VANCOCIN) 125 mg ORAL QID NaCl 0.9% iv infusion 100 mL/hr INTRAVENOUS CONTINUOUS sodium chloride 0.9 % (flush) 2-10 mL (BD POSIFLUSH) 2-10 mL INTRAVENOUS DIRECTED PRN And perflutren lipid microspheres 1.1 mg/mL 1.3 mL injection (DEFINITY) 1.3 mL INTRAVENOUS DIRECTED PRN piperacillin-tazobactam iv piggyback 3.375 g in dextrose (iso-osmotic) 50 mL (ZOSYN) 3.375 g INTRAVENOUS q 6 H pantoprazole 40 mg injection (PROTONIX) 40 mg INTRAVENOUS BID AC (0600/1600) melatonin 9 mg tab(s) 9 mg ORAL DAILY (8 PM) senna-docusate 8.6-50 mg 1 tablet (SENNA-S) 1 tablet ORAL BID PRN metoprolol 5 mg injection (LOPRESSOR) 5 mg INTRAVENOUS q 6 H PRN methocarbamol 500 mg tab(s) (ROBAXIN) 500 mg ORAL TID PRN metoprolol tartrate (short acting) 12.5 mg tab(s) (LOPRESSOR) 12.5 mg ORAL q 8 H folic acid 1 mg tab(s) 1 mg ORAL DAILY lidocaine 4 % 2 patch (SALONPAS) 2 patch TRANSDERMAL DAILY And lidocaine patch - REMOVE OTHER AT BEDTIME And lidocaine - VERIFY PATCH OTHER q 8 H ipratropium-albuterol 3 mL nebulizer solution (DUONEB) 3 mL INHALATION q 6 H PRN acetaminophen 1,000 mg tab(s) (TYLENOL) 1,000 mg ORAL q 8 H budesonide, enteric coated 9 mg cap(s) (ENTOCORT EC) 9 mg ORAL DAILY cetirizine 10 mg tab(s) (ZYRTEC) 10 mg ORAL DAILY rosuvastatin 10 mg tab(s) (CRESTOR) 10 mg ORAL AT BEDTIME NaCl 0.9% iv flush bag 20 mL INTRAVENOUS PRN ondansetron 4 mg tab(s) (ZOFRAN) 4 mg ORAL q 6 H PRN Or ondansetron (PF) 4 mg injection (ZOFRAN) 4 mg INTRAVENOUS q 6 H PRN oxyCODONE IR 2.5-5 mg tab(s) (ROXICODONE) 2.5-5 mg ORAL q 4 H PRN thiamine 100 mg tab(s) (VITAMIN B1) 100 mg ORAL/FEEDING TUBE TID Labs: Recent Labs 01/03/25 0359 01/02/25 1046 01/02/25 0414 01/02/25 0031 01/01/25 2213 01/01/25 0126 12/31/24 2256 NA 133* -- 135* -- 135* < > 139 K 3.7 -- 3.9 -- 4.0 < > 3.6* CHLOR 100 -- 104 -- 104 < > 109* CO2 19* -- 19* -- 20* < > 18* BUN 10 -- 13 -- 15 < > 18 CREAT 0.72 -- 0.61 -- 0.59 < > 0.74 GLUC 84 -- 93 -- 97 < > 93 ANION 14 -- 12 -- 11 < > 12 CA 8.5 -- 8.4* -- 9.3 < > 7.8* MG -- -- -- -- 1.9 -- 1.9 P -- -- -- -- 2.5* -- 1.9* ALB -- -- -- -- -- -- 2.9* AST -- -- -- -- -- -- 150* ALT -- -- -- -- -- -- 93* ALKPHOS -- -- -- -- -- -- 198* TBILI -- -- -- -- -- -- 0.8 WBC 8.21 9.16 -- < > -- < > 6.75 HB 8.4* 9.2* -- < > -- < > 10.4* HCT 26.2* 26.9* -- < > -- < > 32.4* PLT 253 212 -- < > -- < > 150 LACT -- -- -- -- -- -- 1.9 < > = values in this interval not displayed. PHYSICAL EXAM: Genl: Appears age appropriate. No acute distress. Resting comfortably. Head/Face: Normocephalic. Atraumatic. Eyes: EOMI. Sclera not icteric, not injected Resp: Lung sounds are clear bilat. No wheezes. No rales. Breathing is non-labored on 1L @ 96%. CVS: RRR as above; 2+ pulses at RA, DP, PT bilat. GI: Abdomen is soft, non-tender, not distended. Bowel sounds normoactive. No peritonitis. : Villela catheter draining clear, yellow urine. MSK: Extremities without clubbing, cyanosis, edema. Normal ROM x 4. Skin: Warm and dry. Not jaundiced. Ecchymosis to left upper extremity. Scattered ecchymosis to right upper extremity. Ecchymosis to left chest, hip. Neuro: AANDOx1. Strength and sensation normal. BRAGA. Psych: Drowsy, slow to respond. ASSESSMENT AND PLAN: Assessment Active Hospital Problems Diagnosis Date Noted Pneumothorax 12/26/2024 At risk for delirium 12/31/2024 Acute cystitis without hematuria 12/31/2024 Acute urinary retention 12/31/2024 Hypokalemia 12/31/2024 Hyponatremia 12/31/2024 SVT (supraventricular tachycardia) (HCC) 12/31/2024 Hypophosphataemia 12/31/2024 Posttraumatic respiratory insufficiency 12/27/2024 Fall 12/26/2024 Closed fracture of multiple ribs of left side 12/26/2024 Hemopneumothorax on left 12/26/2024 Alcohol use 12/26/2024 Type 2 diabetes (HCC) 12/26/2024 Chronic IBS (irritable bowel syndrome) 12/26/2024 Chronic History of stroke 2013 Chronic History of cholecystectomy 2008 Chronic Assessment: 79-year old female s/p mechanical fall on 12/26/24 (Trauma transfer from [place]) Imaging performed: CT HNCAP ([place] [facility], 12/26) CXR, XR left elbow/forearm (12/26) CXR x 2 (12/27) CXR x 3, CTA chest, CTAP (12/28) CXR (12/29) CXR (12/30) CXR (12/31) CT brain, CXR x 2, KUB (01/01) CXR (01/02) Traumatic Injuries: Left 6-9 rib fractures with associated hemopneumothorax and subcutaneous emphysema Left elbow contusion with small skin tear Operations/Procedures: 1. 12/27/2024 - Left chest tube inserted 2. 12/28/2024 - Left subclavian CVC (removed 12/30) Care Plan: Left rib fractures with hemopneumothorax S/p left chest tube insertion 12/27/24 CT to water seal 12/28, removed 01/01 CXR (01/02): Left basilar atelectasis, trace effusion Respiratory status stable on 1L NC Wean supplemental oxygen as tolerated Aggressive pulmonary hygiene Multimodal pain control Mobilize as tolerated ETOH abuse, delirium Patient reports daily wine consumption 3-4 glasses Received Phenobarbital and Ativan at [facility] and during transfer Phenobarb taper discontinued 2/2 sedation CIWA protocol Continue Thiamine, Folate Social work consult Discontinue Seroquel due to drowsiness Continue Melatonin at HS Acute urinary retention Villela inserted 12/28 due to high volume retention Villela catheter removed 12/31 and void trial initiated Required straight catheterization x 1 due to continued retention on 01/01 Villela catheter reinserted 01/02 due to high volume retention Leukocytosis WBCs 9.0 -> 9.1 -> 8.2 Afebrile, HDS Respiratory status stable on 1L NC Blood cultures (12/28): NGTD UA (12/28): +WBCs, leuks UC (12/28): +E.Coli Repeat UA (01/01): +WBCs, leuks Received Zosyn x 3 days for UTI (12/28-12/31) Continue Zosyn based on previous sensitivities for UTI to complete a 7-day course (01/02-01/06) C.diff PCR (01/02): Positive C.diff EIA (820): Negative Start PO Vancomycin QID (01/03-01/12) Trend daily CBC SVT Patient with episodes of SVT necessitating IV Metoprolol for conversion to SR ECHO (01/02): EF 60%, mild concentric LVH, LV/RV function normal, mild 1+-2+ AV regurg Consider increasing PO Metoprolol from 12.5 mg TID to 25 mg TID if HR remains uncontrolled PRN IV Metoprolol 5 mg every 6 hours for HR > 120 Continuous cardiac monitoring Monitor electrolytes and supplement as needed Acute blood loss anemia, ?UGIB Hgb 10.0 -> 9.2 -> 8.4 +Tarry stool x 1 on 01/02/25 Likely in setting of NSAID administration with history of IBD Resume DVT chemoprophylaxis; if Hgb continues to decrease, consult GI Continue Pantoprazole BID Transfuse for Hgb < 7.0 or for signs of bleeding Trend daily CBC Continue home medications as ordered Current diet order: DIET REGULAR Pain regimen: Scheduled Tylenol, PRN Oxycodone, Robaxin Bowel regimen: None Labs: As above PPX: DVT: Resume Lovenox 30 mg BID, SCDs, mobilize Ulcer: Pantoprazole BID Vit D level if > 65 yo: 46.4 Consulted Services: SICU PT/OT Social work Dispo Planning: PT/OT recommend SNF. Case management following. Incidentals: None Follow Up Needs: Trauma clinic in 1 week Staff Trauma Surgeon: Dr. Phillips SIGNATURE: Christie Neil APRN.CNP PATIENT NAME: Cristino Verdugo DATE: 01/03/2025 TIME: 8:47 AM Pager: see below Trauma Service Pager: For questions or concerns Mon-Tue 6a-5p please page [phone]. After 5pm and on Weekends and Holidays, please page [phone] if in ICU or [phone] if on RNF. ALLIED HEALTH Observed: 01/03/2025 7:38 AM Status: COMPLETED Source: [facility] HNO ID: [id number] Author: ?, ?, ? Service: Infection Prevention Author Type: ? Type: Allied Health Filed: 01/03/2025 07:47 Note Text: ISOLATION NOTE Admission Date: 12/26/2024 Type of Isolation Recommended: Contact Precautions - Soap and Water (Brown Isolation Sign) Indication: Clostridium difficile Date Isolation Initiated: 01/03/2025 Anticipated Duration of Isolation: In consultation with Infection Prevention Type and Date of Positive Test(s): Positive C. Difficile PCR (Collected 01/02/25) SIGNATURE: Keshav Liz II PATIENT NAME: Cristino Verdugo DATE: January 03, 2025 TIME: 7:39 AM PAGER/CONTACT #: Infection Prevention, [id number] Infection Prevention after hours/weekend pager: [phone] XR CHEST 1V FRONTAL Observed: 01/03/2025 5:05 AM Status: F Source: [facility] * * *Final Report* * * DATE OF EXAM: Jan 03 2025 5:05AM AKX 5290 - XR CHEST 1V FRONTAL / PROCEDURE REASON: Evaluate tube, line, or lead position * * * * Physician Interpretation * * * * EXAMINATION: CHEST RADIOGRAPH (SINGLE VIEW AP OR PA) CLINICAL HISTORY: Evaluate tube, line, or lead position MQ: XC1_5 Comparison: Chest radiograph 01/02/2025 RESULT: Lines, tubes, and devices: None. Lungs and pleura: No pneumothorax. Similar mild opacities at the left lung base. Trace pleural effusions. Cardiomediastinal silhouette: Normal cardiomediastinal silhouette. IMPRESSION: No significant change. Cloud Subject Matter Expert: PSCB Transcribe Date/Time: Jan 03 2025 7:52A Dictated by : KEVIN NORRIS MD This examination was interpreted and the report reviewed and electronically signed by: KEVIN NORRIS MD on Jan 03 2025 7:53AM EST [id number] BAS METAB 2000 PNL SERPL Collected: 3:59 AM Status: F Source: [facility] Order Comment: Specimen Type : BLOOD SPECIMEN Ordering Facility: [facility] Address: [address] [place] [address] TYPE CODE TESTS RESULT OUT OF RANGE REFERENCE UNITS LAB 2345-7(LOINC) Glucose SerPl-[facility] 84 74-99 mg/dL Result Comment: The [place] Diabetes Association (ADA) provides guidance for cutoff values for fasting glucose and random glucose. The ADA defines fasting as no caloric intake for at least 8 hours. Fasting plasma glucose results between 100 to 125 mg/dL indicate increased risk for diabetes (prediabetes). Fasting plasma glucose results greater than or equal to 126 mg/dL meet the criteria for diagnosis of diabetes. In the absence of unequivocal hyperglycemia, results should be confirmed by repeat testing. In a patient with classic symptoms of hyperglycemia or hyperglycemic crisis, random plasma glucose results greater than or equal to 200 mg/dL meet the criteria for diagnosis of diabetes. Reference: Standards of Medical Care in Diabetes 2016, [place] Diabetes Association. Diabetes Care. 2016.39(Suppl 1). LAB 3094-0(LOINC) BUN SerPl-mCnc 10 7-21 mg/dL LAB 2160-0(LOINC) Creat SerPl-mCnc 0.72 0.58-0.96 mg/dL LAB 2951-2(LOINC) Sodium SerPl-sCnc 133 Low 136-144 mmol/L LAB 2823-3(LOINC) Potassium SerPl-sCnc 3.7 3.7-5.1 mmol/L LAB 2075-0(LOINC) Chloride SerPl-sCnc 100 98-107 mmol/L LAB 2028-9(LOINC) CO2 SerPl-sCnc 19 Low 22-30 mmol/L LAB 1863-0(LOINC) Anion Gap4 SerPl-sCnc 14 8-15 mmol/L LAB 03778-8(LOINC) Calcium SerPl-mCnc 8.5 8.5-10.2 mg/dL LAB 58034-3(LOINC) eGFRcr SerPlBld CKD-EPI 2020 86 >=60 mL/min/1. 73m??? Result Comment: Estimated Gl omerular Filtration Rate (eGFR) is calculated using the 2020 CKD-EPI creatinine equation. This equation utilizes serum creatinine, sex, and age as parameters. The creatinine assay has traceable calibration to isotope dilution-mass spectrometry. Refer to KDIGO guidelines for clinical interpretation. In patients with unstable renal function, e.g. those with acute kidney injury, the eGFR may not accurately reflect actual GFR. Performed By: #### 13297-0 # ### [facility] CLIA [id number] [address] [place] CBC PNL BLD AUTO Collected: 01/03/2025 3:59 AM Statu s: F Source: [facility] Order Comment: Specimen Type : BLOOD SPECIMEN Ordering Facility: [facility] Address: [address] [place], [place] [id number] TYPE CODE TESTS RESULT OUT OF RANGE REFERENCE UNITS LAB 6690-2([facility]) WBC # Bld Auto 8.21 3.70-11.00 k/uL LAB 789-8(LOINC) RBC # Bld Auto 2.52 Low 3.90-5.20 m/ uL LAB 718-7(INC) Hgb Bld-mCnc 8.4 Low 11.5-15.5 g/dL LAB 4544-3([facility]) Hct VFr Bld Auto 26.2 Low 36.0-46.0 % LAB 787-2(INC) MCV RBC Auto 104.0 High 80.0-100.0 fL LAB 785-6(INC) MCH RBC Qn Auto 33.3 26.0-34.0 pg LAB 786-4([facility]) MCHC RBC Auto-mCnc 32.1 30.5-36.0 g/dL LAB 83920-5([facility]) RDW RBC-Rto 12.7 11.5-15.0 % LAB 777-3([facility]) Platelet # Bld Auto 253 150-400 k/uL LAB 73235-2([facility]) PMV Bld Auto 10.1 9.0-12.7 fL LAB 771-6([facility]) nRBC # Bld Auto <0.01 <0.01 k/uL Performed By: #### 28064-1 # ### [facility] CLIA [id number] [address] STATES OF [facility] C DIFF TOX GENS STL QL PARISH+PROBE Collected: 01/02/2025 5:38 PM Status: F Source: [facility] Order Comment: Specimen Type : STOOL SPECIMEN Ordering Facility: [facility] Address: [address] [place] [address] [place] [address] TYPE CODE TESTS RESULT OUT OF RANGE REFERENCE UNITS LAB 42779-7([facility]) C diff Tox gens Stl Ql PARISH+probe Positive for C. difficile toxin by PCR Abnormal Negative for C. difficile toxin by PCR Result Comment: A positive P CR result may indicate C.difficile infection or colonization. The positive predictive value of this test for C.difficile infection is highest for patients with clinically significant diarrhea (>=3 unformed stools in 24h) who do not have an alternative explanation (e.g., recent receipt of laxatives). Toxin EIA testing will also be performed as recommended by IDSA clinical practice guidelines for institutions without pre-agreed criteria for specimen submission. Performed By: #### CDEIA, 54 067-4 #### [facility] CLIA [id number] [address] CLOSTRIDIUM DIFFICILE TOXIN BY EIA Collected: 01/02/2025 5:38 PM Status: F Source: [facility] Order Comment: Specimen Type : STOOL SPECIMEN Ordering Facility: [facility] Address: [address] [place] [address] TYPE CODE TESTS RESULT OUT OF RANGE REFERENCE UNITS LAB 84451-5([facility]) C diff Tox A+B Stl Ql IA C. difficile toxin NOT DETECTED by EIA. Negative for C. difficile toxin Result Comment: Toxin EIA is less sensitive than cell cytotoxin and PCR assays. Clinical correlation of PCR positive/toxin EIA negative results is required to distinguish C. difficle colonization from disease. Performed By: #### CDKANIKA, 54 067-4 #### [facility] CLIA [id number] [address] CASE MANAGEM Observed: 01/02/2025 3:17 PM Status: COMPLETED Source: [facility] HNO ID: [id number] Author: SHAVONNE MEIER RN Service: Care Management Author Type: Registered Nurse Type: Care Mgt Progress Note Filed: 01/02/2025 17:45 Note Text: CARE MANAGEMENT PROGRESS NOTE SERVICE DATE: 01/02/2025 SERVICE TIME: 3:17 PM LOS: 7 days Called to speak with son Pankaj at this time to discuss facility choices. [facility] unable to accept. [facility] has accepted patient. Unable to leave message. Await callback. Will need FOC, auth and 7000. Will need managed transport. CM to follow for transitional needs Addendum: Callback received from son Pankaj. Son states he is interested in additional referrals to facilities in the area. New SNF choice list provided of all facilities within 15 miles of patient's ZIP. Additional referrals sent to potential accepting facilities. CM to follow for transitional needs SIGNATURE: Shavonne Meier RN PATIENT NAME: Cristino Verdugo DATE: January 02, 2025 TIME: 3:17 PM ECHO Observed: 01/02/2025 11:09 AM Status: F Source: [facility] Echocardiography Report: Tra nsthoracic Echo [facility] Date of service: 01/02/2025 11:09:02 AM [facility] Ordering physician: CHRISTIE NEIL Exam indication: SVT Technologist: Eryn Alexander Interpreting physician: Mari Feliciano MD PATIENT: Name: MRS. CRISTINO VERDUGO : 1945 Age: 79 years Gender: F History of hypertension. Primary rhythm: sinus. Height: 156.20 cm BSA: 1.57 m Weight: 57.00 kg BMI: 23.4 kg/m Heart rate 94 bpm Blood pressure 147/97 mmHg Technically difficult exam due to suboptimal positioning. Color Doppler was utilized to interrogate the cardiac valves assessed and spectral Doppler was utilized to determine the flow velocities and pressure gradients reported in this exam. MEASUREMENTS: Value Indexed Normal Max aortic dimension 3.3 cm Ao < 3.8 Left atrial volume 61 ml (biplane A-L) 39 ml/m Shantanu <= 34 IVS, leaflet tips 1.2 cm (2D) Posterior wall thickness 1.1 cm (2D) LV stroke volume 53 ml (2D biplane) LV end diastolic volume 87 ml (2D biplane) 55.6 ml/m 29<=EDVi<62 LV end systolic volume 35 ml (2D biplane) 22.0 ml/m Ejection Fraction 60 % (2D biplane) EF > 54 FINDINGS: LEFT VENTRICLE The left ventricle is normal in size. There is mild concentric left ventricular hypertrophy. Left ventricular systolic function is normal globally. Left ventricular diastolic function was not evaluated due to E/A Fusion. Mitral annular lateral E/e': 11.2. Mitral annular septal E/e': 18.0. Wall Motion: All scored segments are normal. RIGHT VENTRICLE The right ventricle is normal in size. Right ventricular systolic function is normal. RV systolic tissue Doppler velocity is 15.0 cm/s. Tricuspid annular displacement is 2.5 cm. Estimated right ventricular systolic pressure is 26 mmHg consistent with normal pulmonary artery pressures. Estimated right atrial pressure is 3 mmHg based on IVC assessment. LEFT ATRIUM The left atrial cavity is mildly dilated. RIGHT ATRIUM The right atrial cavity is normal in size. Inferior Vena Cava: The inferior vena cava appears normal measuring 1.5 cm. The vessel decreases greater than 50 percent with inspiration. MITRAL VALVE There is mild mitral annular calcification observed posterior. There is trace mitral valve regurgitation. There is no thickening. The peak mitral E/A ratio is 0.64. The average mitral E/e' ratio is 14.6. TRICUSPID VALVE The tricuspid valve leaflets are structurally normal. There is trace tricuspid valve regurgitation. AORTIC VALVE There is mild (1+ - 2+) aortic valve regurgitation. Tricuspid aortic valve. There is mild thickening. PULMONIC VALVE There is trace pulmonic valve regurgitation. There is no thickening. AORTA The visualized aorta is normal in size. Measurements - Mid ascending aorta 3.3 cm. PULMONARY ARTERIES The pulmonary arteries are unseen or not interrogated. INTERATRIAL SEPTUM There is no evidence of intracardiac shunting as detected by Doppler. INTERVENTRICULAR SEPTUM There is no flow through the interventricular septum as detected by Doppler. PERICARDIUM There is no pericardial effusion. There is an epicardial fat pad. CONCLUSIONS: - Technically difficult exam due to suboptimal positioning. - Exam indication: SVT - The left ventricle is normal in size. There is mild concentric left ventricular hypertrophy. Left ventricular systolic function is normal. EF = 60 5% (2D biplane) Left ventricular diastolic function was not evaluated due to E/A Fusion. - The right ventricle is normal in size. Right ventricular systolic function is normal. - The left atrial cavity is mildly dilated. - There is mild (1+ - 2+) aortic valve regurgitation. - The patient has not had a prior CC echocardiographic exam for comparison. * * * Final * * * [facility] Image : [id number] PNL BLD AUTO Collected: 01/02/2025 10:46 AM Stat us: F Source: [facility] Order Comment: Specimen Type : BLOOD SPECIMEN Ordering Facility: [facility] Address: [address] [place] [address] TYPE CODE TESTS RESULT OUT OF RANGE REFERENCE UNITS LAB 6690-2(LOINC) WBC # Bld Auto 9.16 3.70-11.00 k/uL LAB 789-8(LOINC) RBC # Bld Auto 2.57 Low 3.90-5.20 m/ uL LAB 718-7(LOINC) Hgb Bld-mCnc 9.2 Low 11.5-15.5 g/dL LAB 4544-3(LOINC) Hct VFr Bld Auto 26.9 Low 36.0-46.0 % LAB 787-2(LOINC) MCV RBC Auto 104.7 High 80.0-100.0 fL LAB 785-6(LOINC) MCH RBC Qn Auto 35.8 High 26.0-34.0 pg LAB 786-4(LOINC) MCHC RBC Auto-mCnc 34.2 30.5-36.0 g/dL LAB 21374-9(LOINC) RDW RBC-Rto 13.0 11.5-15.0 % LAB 777-3(LOINC) Platelet # Bld Auto 212 150-400 k/uL LAB 99802-0(LOINC) PMV Bld Auto 10.5 9.0-12.7 fL LAB 771-6(LOINC) nRBC # Bld Auto 0.02 High <0.01 k/uL Performed By: #### 46475-4 # ### [facility] CLIA [id number] [address] OF [facility] NURSING PROG Observed: 01/02/2025 10:18 AM Status: COMPLETED Source: [facility] HNO ID: [id number] Author: JARET PORTER, BELEN Service: Nursing Author Type: Registered Nurse Type: Nursing Progress Note Filed: 01/02/2025 10:20 Note Text: 0815 Patient found soiled in bed with medium sized black bowel movement. Trauma team notified. 0845 Patient with large amount of red drainage coming from incision site on left side. Pressure dressing applied. Trauma team notified. No further orders. PROGRESS Observed: 01/02/2025 7:55 AM Status: COMPLETED Source: [facility] HNO ID: [id number] Author: CHRISTIE NEIL APRN.HISTORIC PRESERVATIONIST Service: General Surgery Author Type: Nurse Practitioner Type: Progress Notes Filed: 01/02/2025 11:13 Note Text: Trauma Surgery Progress Note SERVICE DATE: 01/02/2025 Trauma Service Pager: For questions or concerns Mon-Fri 6a-5p please page [phone]. After 5pm and on Weekends and Holidays, please page [phone] if in ICU or [phone] if on RNF.SUBJECTIVE: Rapid response called overnight due to SVT. Patient with a HR in the 180s, BP stable. She was given 5 mg IV Metoprolol x 2 with conversion to SR. She was also given electrolyte replacement and an IVF bolus. This morning, patient is drowsy, but arousable to voice. She is slow to answer questions. Respiratory status stable on 1L NC. She reports improvement in generalized abdominal pain. She denies chest pain, shortness of breath, nausea, vomiting. OBJECTIVE: Vitals: Temp (24hrs), Av.3 ?C (99.1 ?F), Min:36.6 ?C (97.9 ?F), Max:38.2 ?C (100.7 ?F) BP 107/58 Pulse 86 Temp 36.9 ?C (98.4 ?F) (Oral) Resp 18 Ht 156.2 cm (5' 1.5") Wt 57 kg (125 lb 10.6 oz) SpO2 98% BMI 23.36 kg/m? O2 Therapy: Nasal Cannula IANDO: Date 01/01/25 07 - 01/02/25 0659 01/02/25 0700 - 01/03/25 0659 Shift 7036-4474 1174-4089 1010-0179 24 Hour Total 2018-1494 3268-6847 8429-7634 24 Hour Total INTAKE PO 250 250 PO 250 250 Shift Total 250 250 OUTPUT Urine 350 158 688 1920 Straight cath (ml) 350 550 900 Urine Not Saved. 2 x 2 x Output ( Indwelling Urinary Catheter 01/02/25 0100 Villela 16 Fr) 750 750 # of BMs Number of BMs 1 x 3 x 4 x Shift Total 350 420 929 4668 Weight (kg) 57 57 57 57 57 57 57 57 MEDICATIONS: Current Facility-Administered Medications Medication Dose Route Frequency magnesium sulfate iv piggyback in sterile water 2 g 50 mL 2 g INTRAVENOUS ONCE sodium chloride 0.9 % (flush) 2-10 mL (BD POSIFLUSH) 2-10 mL INTRAVENOUS DIRECTED PRN And perflutren lipid microspheres 1.1 mg/mL 1.3 mL injection (DEFINITY) 1.3 mL INTRAVENOUS DIRECTED PRN lactated ringers iv infusion 75 mL/hr INTRAVENOUS CONTINUOUS piperacillin-tazobactam iv piggyback 3.375 g in dextrose (iso-osmotic) 50 mL (ZOSYN) 3.375 g INTRAVENOUS q 6 H melatonin 9 mg tab(s) 9 mg ORAL DAILY (8 PM) senna-docusate 8.6-50 mg 1 tablet (SENNA-S) 1 tablet ORAL BID PRN metoprolol 5 mg injection (LOPRESSOR) 5 mg INTRAVENOUS q 6 H PRN methocarbamol 500 mg tab(s) (ROBAXIN) 500 mg ORAL TID PRN metoprolol tartrate (short acting) 12.5 mg tab(s) (LOPRESSOR) 12.5 mg ORAL q 8 H folic acid 1 mg tab(s) 1 mg ORAL DAILY enoxaparin 30 mg injection (LOVENOX) 30 mg SUBCUTANEOUS q 12 HR lidocaine 4 % 2 patch (SALONPAS) 2 patch TRANSDERMAL DAILY And lidocaine patch - REMOVE OTHER AT BEDTIME And lidocaine - VERIFY PATCH OTHER q 8 H ipratropium-albuterol 3 mL nebulizer solution (DUONEB) 3 mL INHALATION q 6 H PRN acetaminophen 1,000 mg tab(s) (TYLENOL) 1,000 mg ORAL q 8 H budesonide, enteric coated 9 mg cap(s) (ENTOCORT EC) 9 mg ORAL DAILY cetirizine 10 mg tab(s) (ZYRTEC) 10 mg ORAL DAILY rosuvastatin 10 mg tab(s) (CRESTOR) 10 mg ORAL AT BEDTIME NaCl 0.9% iv flush bag 20 mL INTRAVENOUS PRN ondansetron 4 mg tab(s) (ZOFRAN) 4 mg ORAL q 6 H PRN Or ondansetron (PF) 4 mg injection (ZOFRAN) 4 mg INTRAVENOUS q 6 H PRN oxyCODONE IR 2.5-5 mg tab(s) (ROXICODONE) 2.5-5 mg ORAL q 4 H PRN thiamine 100 mg tab(s) (VITAMIN B1) 100 mg ORAL/FEEDING TUBE TID Labs: Recent Labs 01/02/25 0414 01/02/25 0031 01/01/25 2213 01/01/25 0126 12/31/24 2256 NA 135* -- 135* 137 139 K 3.9 -- 4.0 3.8 3.6* CHLOR 104 -- 104 106 109* CO2 19* -- 20* 19* 18* BUN 13 -- 15 20 18 CREAT 0.61 -- 0.59 0.78 0.74 GLUC 93 -- 97 94 93 ANION 12 -- 11 12 12 CA 8.4* -- 9.3 8.6 7.8* MG -- -- 1.9 -- 1.9 P -- -- 2.5* -- 1.9* ALB -- -- -- -- 2.9* AST -- -- -- -- 150* ALT -- -- -- -- 93* ALKPHOS -- -- -- -- 198* TBILI -- -- -- -- 0.8 WBC -- 9.02 -- 5.94 6.75 HB -- 10.0* -- 9.9* 10.4* HCT -- 29.3* -- 29.6* 32.4* PLT -- 229 -- 147* 150 LACT -- -- -- -- 1.9 PHYSICAL EXAM: Genl: Appears age appropriate. No acute distress. Resting comfortably. Head/Face: Normocephalic. Atraumatic. Eyes: EOMI. Sclera not icteric, not injected Resp: Lung sounds are clear bilat. No wheezes. No rales. Breathing is non-labored on 1L @ 96%. CVS: RRR as above; 2+ pulses at RA, DP, PT bilat. GI: Abdomen is soft, non-tender, not distended. Bowel sounds normoactive. No peritonitis. : Villela catheter draining clear, yellow urine. MSK: Extremities without clubbing, cyanosis, edema. Normal ROM x 4. Skin: Warm and dry. Not jaundiced. Neuro: AANDOx1. Strength and sensation normal. BRAGA. Psych: Drowsy, slow to respond. ASSESSMENT AND PLAN: Assessment Active Hospital Problems Diagnosis Date Noted Pneumothorax 12/26/2024 At risk for delirium 12/31/2024 Acute cystitis without hematuria 12/31/2024 Acute urinary retention 12/31/2024 Hypokalemia 12/31/2024 Hyponatremia 12/31/2024 SVT (supraventricular tachycardia) (HCC) 12/31/2024 Hypophosphataemia 12/31/2024 Posttraumatic respiratory insufficiency 12/27/2024 Fall 12/26/2024 Closed fracture of multiple ribs of left side 12/26/2024 Hemopneumothorax on left 12/26/2024 Alcohol use 12/26/2024 Type 2 diabetes (HCC) 12/26/2024 Chronic IBS (irritable bowel syndrome) 12/26/2024 Chronic History of stroke 2013 Chronic History of cholecystectomy 2008 Chronic Assessment: 79-year old female s/p mechanical fall on 12/26/24 (Trauma transfer from [place]) Imaging performed: CT HNCAP ([place] [facility], 12/26) CXR, XR left elbow/forearm (12/26) CXR x 2 (12/27) CXR x 3, CTA chest, CTAP (12/28) CXR (12/29) CXR (12/30) CXR (12/31) CT brain, CXR x 2, KUB (01/01) CXR (01/02) Traumatic Injuries: Left 6-9 rib fractures with associated hemopneumothorax and subcutaneous emphysema Left elbow contusion with small skin tear Operations/Procedures: 1. 12/27/2024 - Left chest tube inserted 2. 12/28/2024 - Left subclavian CVC (removed 12/30) Care Plan: Left rib fractures with hemopneumothorax S/p left chest tube insertion 12/27/24 CT to water seal 12/28, removed 01/01 CXR (01/02): Left basilar atelectasis, trace effusion Respiratory status stable on 1L NC Wean supplemental oxygen as tolerated Aggressive pulmonary hygiene Multimodal pain control Mobilize as tolerated ETOH abuse, delirium Patient reports daily wine consumption 3-4 glasses Received Phenobarbital and Ativan at [facility] and during transfer Phenobarb taper discontinued 2/2 sedation CIWA protocol Continue Thiamine, Folate Social work consult Discontinue Seroquel due to drowsiness Continue Melatonin at HS Acute urinary retention Villela inserted 12/28 due to high volume retention Villela catheter removed 12/31 and void trial initiated Required straight catheterization x 1 due to continued retention on 01/01 Villela catheter reinserted 01/02 due to high volume retention Leukocytosis WBCs 6.7 -> 5.9 -> 9.0 Febrile, episodes of SVT Respiratory status stable on 1L NC Blood cultures (12/28): NGTD UA (12/28): +WBCs, leuks UC (12/28): +E.Coli Repeat UA (01/01): +WBCs, leuks Received Zosyn x 3 days for UTI (12/28-12/31) Restart Zosyn based on previous sensitivities for presumed UTI (01/02-) Obtain C.diff sample Trend daily CBC SVT Patient with episodes of SVT necessitating IV Metoprolol for conversion to SR Obtain ECHO Consider increasing PO Metoprolol from 12.5 mg TID to 25 mg TID PRN IV Metoprolol 5 mg every 6 hours for HR > 120 Continuous cardiac monitoring Monitor electrolytes and supplement as needed Continue home medications as ordered Current diet order: DIET REGULAR Pain regimen: Scheduled Tylenol, PRN Oxycodone, Robaxin Bowel regimen: None Labs: As above PPX: DVT: Lovenox 30 mg BID, SCDs, mobilize Ulcer: None Vit D level if > 65 yo: 46.4 Consulted Services: SICU PT/OT Social work Dispo Planning: PT/OT recommend SNF. Case management following. Incidentals: None Follow Up Needs: Trauma clinic in 1 week Staff Trauma Surgeon: Dr. Phillips SIGNATURE: Christie Neil APRN.CNP PATIENT NAME: Cristino Verdugo DATE: 01/02/2025 TIME: 7:55 AM Pager: see below Trauma Service Pager: For questions or concerns Mon-Tue 6a-5p please page [phone]. After 5pm and on Weekends and Holidays, please page [phone] if in ICU or [phone] if on RNF. XR CHEST 1V FRONTAL Observed: 01/02/2025 5:49 AM Status: F Source: [facility] * * *Final Report* * * DATE OF EXAM: Jan 02 2025 5:49AM AKX [id number] - XR CHEST 1V FRONTAL / PROCEDURE REASON: Evaluate tube, line, or lead position * * * * Physician Interpretation * * * * EXAMINATION: CHEST RADIOGRAPH (SINGLE VIEW AP OR PA) CLINICAL HISTORY: Evaluate tube, line, or lead position MQ: XC1_5 Comparison: Daily prior chest radiographs and CTA chest 12/28/2024. RESULT: Lines, tubes, and devices: Overlying cardiac monitoring leads. Lungs and pleura: Mild elevated right hemidiaphragm. Persistent left basilar opacity. Blunted left lateral costophrenic angle. No pneumothorax. Cardiomediastinal silhouette: Stable cardiomediastinal silhouette. Other: Pre-existing left-sided multilevel rib fractures and ipsilateral chest wall air. Pre-existing cement augmentation of contiguous mid-lower thoracic vertebra. IMPRESSION: Persistent left basilar opacity suggesting atelectasis. Blunted extreme left lateral costophrenic angle suggesting trace effusion.. Cloud Subject Matter Expert: PSCB Transcribe Date/Time: Jan 02 2025 7:12A Dictated by : AMELIE POLLACK MD This examination was interpreted and the report reviewed and electronically signed by: AMELIE POLLACK MD on Jan 02 2025 7:16AM EST [id number] BAS METAB 2000 PNL SERPL Collected: 4:14 AM Status: F Source: [facility] Order Comment: Specimen Type : BLOOD SPECIMEN Ordering Facility: [facility] Address: [address] [place] [address] TYPE CODE TESTS RESULT OUT OF RANGE REFERENCE UNITS LAB 2345-7(LOINC) Glucose SerPl-mCnc 93 74-99 mg/dL Result Comment: The [place] Diabetes Association (ADA) provides guidance for cutoff values for fasting glucose and random glucose. The ADA defines fasting as no caloric intake for at least 8 hours. Fasting plasma glucose results between 100 to 125 mg/dL indicate increased risk for diabetes (prediabetes). Fasting plasma glucose results greater than or equal to 126 mg/dL meet the criteria for diagnosis of diabetes. In the absence of unequivocal hyperglycemia, results should be confirmed by repeat testing. In a patient with classic symptoms of hyperglycemia or hyperglycemic crisis, random plasma glucose results greater than or equal to 200 mg/dL meet the criteria for diagnosis of diabetes. Reference: Standards of Medical Care in Diabetes 2016, [place] Diabetes Association. Diabetes Care. 2016.39(Suppl 1). LAB 3094-0(LOINC) BUN SerPl-mCnc 13 7-21 mg/dL LAB 2160-0(LOINC) Creat SerPl-mCnc 0.61 0.58-0.96 mg/dL LAB 2951-2(LOINC) Sodium SerPl-sCnc 135 Low 136-144 mmol/L LAB 2823-3(LOINC) Potassium SerPl-sCnc 3.9 3.7-5.1 mmol/L LAB 2075-0(LOINC) Chloride SerPl-sCnc 104 98-107 mmol/L LAB 2028-9(LOINC) CO2 SerPl-sCnc 19 Low 22-30 mmol/L LAB 1863-0(LOINC) Anion Gap4 SerPl-sCnc 12 8-15 mmol/L LAB 41631-0(LOINC) Calcium SerPl-mCnc 8.4 Low 8.5-10.2 mg/dL LAB 70999-6(LOINC) eGFRcr SerPlBld CKD-EPI 2020 92 >=60 mL/min/1. 73m??? Result Comment: Estimated Gl omerular Filtration Rate (eGFR) is calculated using the 2020 CKD-EPI creatinine equation. This equation utilizes serum creatinine, sex, and age as parameters. The creatinine assay has traceable calibration to isotope dilution-mass spectrometry. Refer to KDIGO guidelines for clinical interpretation. In patients with unstable renal function, e.g. those with acute kidney injury, the eGFR may not accurately reflect actual GFR. Performed By: #### [id number] # ### [facility] CLIA [id number] [address] [place] [address] [place] CBC PNL BLD AUTO Collected: 01/02/2025 12:31 AM Stat us: F Source: [facility] Order Comment: Specimen Type : BLOOD SPECIMEN Ordering Facility: [facility] Address: [address] [place] [address] TYPE CODE TESTS RESULT OUT OF RANGE REFERENCE UNITS LAB 6690-2(LOINC) WBC # Bld Auto 9.02 3.70-11.00 k/uL LAB 789-8(LOINC) RBC # Bld Auto 2.82 Low 3.90-5.20 m/ uL LAB 718-7(LOINC) Hgb Bld-mCnc 10.0 Low 11.5-15.5 g/dL LAB 4544-3(LOINC) Hct VFr Bld Auto 29.3 Low 36.0-46.0 % LAB 787-2(LOINC) MCV RBC Auto 103.9 High 80.0-100.0 fL LAB 785-6(LOINC) MCH RBC Qn Auto 35.5 High 26.0-34.0 pg LAB 786-4(LOINC) MCHC RBC Auto-mCnc 34.1 30.5-36.0 g/dL LAB 83937-1(LOINC) RDW RBC-Rto 13.0 11.5-15.0 % LAB 777-3(LOINC) Platelet # Bld Auto 229 150-400 k/uL LAB 35767-5(LOINC) PMV Bld Auto 10.9 9.0-12.7 fL LAB 771-6(LOINC) nRBC # Bld Auto <0.01 <0.01 k/uL Performed By: #### [id number] # ### [facility] CLIA [id number] [address] PROGRESS Observed: 01/01/2025 11:58 PM Status: COMPLETED Source: [facility] HNO ID: [id number] Author: GARETT ALAN APRN.HISTORIC PRESERVATIONIST Service: Critical Care Author Type: Nurse Practitioner Type: Progress Notes Filed: 01/02/2025 04:03 Note Text: EMERGENCY RESPONSE TEAM Rapid Response Date of MET Page: 01/01/2025 Time of MET Page: 11:51 PM Requesting Provider: Called by RN PRIMARY REASON FOR CALL Cardiac: Heart rate <40 or >140 with new symptoms Any Heart Rate >150 History of Present Illness: This is a 79 year old female with a PMH significant for T2DM, prior stroke, EtOH abuse, GERD, HTN, AND fibromyalgia who was admitted to the hospital on 12/26/24 s/p fall with left 6-9 rib fractures with associated hemopneumothorax and subcutaneous emphysema. Also was treated for sepsis of unclear source and recurrent SVT during hospitalization. Seen for INFORMATION SECURITY on 12/31/24 for suspected SVT with HR in 180s. She was given 5 mg of IVP lopressor with resolution of arrhythmia. SUBJECTIVE: INFORMATION SECURITY called again for tachycardia with original HR in 170s. SVT was suspected. IV metoprolol was ordered by surgical team. 5 mg IVP x 2 with temporary improvement. An additional 10 mg IVP was ordered by the nursing staff was unable to push that dose on the floor. Due to the continued tachycardia the INFORMATION SECURITY was called. On arrival the patient had already had lab work completed along with an EKG and CXR by the primary team. OBJECTIVE: On arrival the patient is tachycardic with a HR in the 130s-1402 (as high as 150s) and SBP in the 180s. She is tachypneic and AANDO to self only. Given 10 mg IVP metoprolol by MET RN along with 0.2 mg IVP dilaudid per primary team. The patient did eventually convert to SR. PAST MEDICAL / SURGICAL HISTORY PAST MEDICAL HISTORY Diagnosis Date GERD (Gastroesophageal Reflux Disease) HTN (Hypertension), Benign IBS (Irritable Bowel Syndrome) , PAST SURGICAL HISTORY Procedure Laterality Date L'SCOPE DULCE MARIA W/CHOLANGIOGRAPHY 03-03-09 , Active Hospital Problems Diagnosis Pneumothorax At risk for delirium Acute cystitis without hematuria Acute urinary retention Hypokalemia Hyponatremia SVT (supraventricular tachycardia) (HCC) Hypophosphataemia Posttraumatic respiratory insufficiency Fall Closed fracture of multiple ribs of left side Hemopneumothorax on left Alcohol use Type 2 diabetes (HCC) IBS (irritable bowel syndrome) History of stroke History of cholecystectomy MEDICATIONS Current Facility-Administered Medications Medication Dose Route Frequency melatonin 9 mg tab(s) 9 mg ORAL DAILY (8 PM) senna-docusate 8.6-50 mg 1 tablet (SENNA-S) 1 tablet ORAL BID PRN metoprolol 10 mg injection (LOPRESSOR) 10 mg INTRAVENOUS ONCE metoprolol 5 mg injection (LOPRESSOR) 5 mg INTRAVENOUS q 6 H PRN methocarbamol 500 mg tab(s) (ROBAXIN) 500 mg ORAL TID PRN metoprolol tartrate (short acting) 12.5 mg tab(s) (LOPRESSOR) 12.5 mg ORAL q 8 H folic acid 1 mg tab(s) 1 mg ORAL DAILY enoxaparin 30 mg injection (LOVENOX) 30 mg SUBCUTANEOUS q 12 HR lidocaine 4 % 2 patch (SALONPAS) 2 patch TRANSDERMAL DAILY And lidocaine patch - REMOVE OTHER AT BEDTIME And lidocaine - VERIFY PATCH OTHER q 8 H ipratropium-albuterol 3 mL nebulizer solution (DUONEB) 3 mL INHALATION q 6 H PRN acetaminophen 1,000 mg tab(s) (TYLENOL) 1,000 mg ORAL q 8 H budesonide, enteric coated 9 mg cap(s) (ENTOCORT EC) 9 mg ORAL DAILY cetirizine 10 mg tab(s) (ZYRTEC) 10 mg ORAL DAILY rosuvastatin 10 mg tab(s) (CRESTOR) 10 mg ORAL AT BEDTIME NaCl 0.9% iv flush bag 20 mL INTRAVENOUS PRN ondansetron 4 mg tab(s) (ZOFRAN) 4 mg ORAL q 6 H PRN Or ondansetron (PF) 4 mg injection (ZOFRAN) 4 mg INTRAVENOUS q 6 H PRN oxyCODONE IR 2.5-5 mg tab(s) (ROXICODONE) 2.5-5 mg ORAL q 4 H PRN thiamine 100 mg tab(s) (VITAMIN B1) 100 mg ORAL/FEEDING TUBE TID and Prescriptions Prior to Admission[1] ALLERGIES ALLERGIES No Known Allergies PERTINENT DIAGNOSTICS Labs (Reviewed and include): BMP Recent Labs 01/01/25 2213 GLUC 97 K 4.0 NA 135* CHLOR 104 CO2 20* CREAT 0.59 BUN 15 ANION 11 CA 9.3 ION CA 1.24 MAG 1.9 PHOS 2.5 CBC Recent Labs 01/02/25 0031 HB 10.0* HCT 29.3* RBC 2.82* WBC 9.02 PLT 229 Bedside POC: HS Troponin 22 BG 99 EKG: Imaging: Pertinent Vital Signs at Time of MET Call: See documentation from MET/STATION MANAGER at time of INFORMATION SECURITY. Current Vital Signs: BP 166/97 Pulse (!) 151 Temp (!) 38.2 ?C (100.7 ?F) (Axillary) Resp 19 Ht 156.2 cm (5' 1.5") Wt 57 kg (125 lb 10.6 oz) SpO2 97% BMI 23.36 kg/m? PHYSICAL EXAM: General Appearance: Patient appears to be in mild distress. Eyes: Pupils are equally round and reactive to light. Lungs: Fairly clear to auscultation. Crepitus palpated along left upper chest wall. Heart: Tachycardic, Sinus tachycardia on EKG. Normal S1 AND S2. No M/R/G. Abdomen: Abdomen soft, non-tender. Bowel sounds normal. Extremities: left elbow skin tear noted. No significant edema. Peripheral Pulses: Capillary refill <2secs, strong peripheral pulses. Neurologic: Awake, AANDO to self, BRAGA x 4. ASSESSMENT: #Left 6-9 rib fractures with associated hemopneumothorax and subcutaneous emphysema due to traumatic fall s/p removal of chest tube #Left elbow contusion with small skin tear #SVT/Sinus tachycardia #Delirium #EtOH abuse #Acute urinary retention Status: Stable PLAN/RECOMMENDATIONS: -Previously given 5 mg IVP metoprolol x 2 by primary team -Additional 10 mg IVP metoprolol given by MET RN -0.2 mg IVP dilaudid given as ordered by primary team -500 ml IVF bolus given per primary team -Additional IV access provided -Villela catheter inserted for urinary retention per primary team -Defer remainder of care to primary team Intervention Response: Improved DISPOSITION and OUTCOME Responded to therapy, remains on current unit under care of: Surgery team Primary Team Aware/Notified: Yes This patient has a high probability of sudden, clinically significant deterioration, which requires the highest level of advanced practice provider preparedness to intervene urgently. I managed/supervised life or organ supporting interventions that required frequent advanced practice provider assessment. I devoted my full attention to the direct care of this patient for the amount of time indicated below. Time I spent with family or surrogate(s) is included only if the patient was incapable of providing the necessary information or participating in medical decision making. Time devoted to any procedures I billed separately is not included. CRITICAL CARE TIME: I personally spent 30 minutes directly supervising and providing critical care in the prevention of imminent deterioration as noted above, exclusive of any procedures I performed or supervised I have reviewed, approved and signed the paper MET note. Please refer to this for complete orders and nursing/respiratory documentation. SIGNATURE: Garett Alan APRN.HISTORIC PRESERVATIONIST PATIENT NAME: Cristino Verdugo DATE: 01/01/2025 TIME: 11:58 PM PAGER: [phone] [1] budesonide, enteric coated (ENTOCORT EC) 3 mg 24 hr capsule, Take 9 mg by mouth once daily., Disp: , Rfl: clopidogrel (PLAVIX) 75 mg tablet, Take 75 mg by mouth once daily., Disp: , Rfl: fexofenadine (JERALD) 180 mg tablet, Take 180 mg by mouth once daily., Disp: , Rfl:fluticasone (FLONASE ALLERGY RELIEF) 50 mcg/actuation nasal spray, Use 2 sprays in each nostril once daily., Disp: , Rfl: Ibandronate 150 mg tablet, Take 150 mg by mouth once every month. In AM with cup of water on empty stomach. Nothing else by mouth and stay upright for 60 min., Disp: , Rfl: irbesartan (AVAPRO) 75 mg tablet, Take 75 mg by mouth daily at bedtime., Disp: , Rfl:metoprolol tartrate, short acting, (LOPRESSOR) 25 mg tablet, Take 12.5 mg by mouth two times a day., Disp: , Rfl: rosuvastatin (CRESTOR) 10 mg tablet, Take 10 mg by mouth once daily., Disp: , Rfl: NURSING PROG Observed: 01/01/2025 11:45 PM Status: COMPLETED Source: [facility] HNO ID: [id number] Author: JULIÁN HOPKINS RN Service: Nursing Author Type: Registered Nurse Type: Nursing Progress Note Filed: 01/02/2025 05:28 Note Text: 2113- Pt tachycardic with heart rate sustaining 160's. Blood pressure 172/106 2123- 5mg IV lopressor administered. Manual blood pressure 190/100 2130- Pt heart rate 137 after IV lopressor 2134- Dr. Stapleton at bedside. Heart rate 141. 3- Heart rate 144. BP 176/108 2151- Heart rate 145. BP 155/94. Additional one time order of 5mg IV lopressor administered per Dr. Stapleton 2158- HR 137. BP 168/90. 2343- HR 151. BP 166/97. 2350- Rapid response initiated. ECG COMPLETE Observed: 01/01/2025 10:37 PM Status: F Source: [facility] Ventricular Rate : 138 BPM Atrial Rate : 138 BPM P-R Interval : 160 ms QRS Duration : 72 ms Q-T Interval : 290 ms QTC Calculation(Bazett) : 439 ms Calculated R [place] : 4 degrees Calculated T [place] : -8 degrees SINUS TACHYCARDIA vs SVT SEPTAL INFARCT (CITED ON OR BEFORE 31-Dec-2024) ABNORMAL ECG WHEN COMPARED WITH ECG OF 31-Dec-2024 22:50, SERIAL CHANGES OF EVOLVING SEPTAL INFARCT PRESENT Confirmed by ALLY BILLINGS MD ([id number]) on 01/02/2025 3:46:30 PM NAME : CRISTINO MATA PID : [id number] : 1945 Gender : Female Race : ORD : [id number] Procedure Date : Jan 01 2025 22:37:25 Edit Date : Jan 02 2025 15:46:32 Diagnosis: SINUS TACHYCARDIA vs SVT SEPTAL INFARCT (CITED ON OR BEFORE 31-Dec-2024) ABNORMAL ECG WHEN COMPARED WITH ECG OF 31-Dec-2024 22:50, SERIAL CHANGES OF EVOLVING SEPTAL INFARCT PRESENT Confirmed by ALLY BILLINGS MD ([id number]) on 01/02/2025 3:46:30 PM Test Reason : Arrhythmia Location : [address] : [place] [address] Overread By : ALLY BILLINGS MD Edited By : ALLY BILLINGS MD Referred By : , Acquired by : JUANCHO LUGO BAS METAB 1999 PNL SERPL Collected: 10:13 PM Status: F Source: [facility] Order Comment: Specimen Type : BLOOD SPECIMEN Ordering Facility: [facility] Address: [address] [place] [address] TYPE CODE TESTS RESULT OUT OF RANGE REFERENCE UNITS LAB 2345-7(LOINC) Glucose SerPl-mCnc 97 74-99 mg/dL Result Comment: The [place] Diabetes Association (ADA) provides guidance for cutoff values for fasting glucose and random glucose. The ADA defines fasting as no caloric intake for at least 8 hours. Fasting plasma glucose results between 100 to 125 mg/dL indicate increased risk for diabetes (prediabetes). Fasting plasma glucose results greater than or equal to 126 mg/dL meet the criteria for diagnosis of diabetes. In the absence of unequivocal hyperglycemia, results should be confirmed by repeat testing. In a patient with classic symptoms of hyperglycemia or hyperglycemic crisis, random plasma glucose results greater than or equal to 200 mg/dL meet the criteria for diagnosis of diabetes. Reference: Standards of Medical Care in Diabetes 2016, [place] Diabetes Association. Diabetes Care. 2016.39(Suppl 1). LAB 3094-0(LOINC) BUN SerPl-mCnc 15 7-21 mg/dL LAB 2160-0(LOINC) Creat SerPl-mCnc 0.59 0.58-0.96 mg/dL LAB 2951-2(LOINC) Sodium SerPl-sCnc 135 Low 136-144 mmol/L LAB 2823-3(LOINC) Potassium SerPl-sCnc 4.0 3.7-5.1 mmol/L LAB 2075-0(LOINC) Chloride SerPl-sCnc 104 98-107 mmol/L LAB 2028-9(LOINC) CO2 SerPl-sCnc 20 Low 22-30 mmol/L LAB 1863-0(LOINC) Anion Gap4 SerPl-sCnc 11 8-15 mmol/L LAB 70180-7(LOINC) Calcium SerPl-mCnc 9.3 8.5-10.2 mg/dL LAB 35755-8(LOINC) eGFRcr SerPlBld CKD-EPI 2020 93 >=60 mL/min/1. 73m??? Result Comment: Estimated Gl omerular Filtration Rate (eGFR) is calculated using the 2020 CKD-EPI creatinine equation. This equation utilizes serum creatinine, sex, and age as parameters. The creatinine assay has traceable calibration to isotope dilution-mass spectrometry. Refer to KDIGO guidelines for clinical interpretation. In patients with unstable renal function, e.g. those with acute kidney injury, the eGFR may not accurately reflect actual GFR. Performed By: #### 2777-1, 1 9122-, HSTNT, 17866-3 #### [facility] CLIA [id number] [address] [place] [address] [place] MAGNESIUM SERPL-MCNC Collected: 01/01/2025 10:13 PM Status: F Source: [facility] Order Comment: Specimen Type : BLOOD SPECIMEN Ordering Facility: [facility] Address: [address] [place] [address] TYPE CODE TESTS RESULT OUT OF RANGE REFERENCE UNITS LAB 10039-0([facility]) Magnesium SerPl-mCnc 1.9 1.7-2.3 mg/dL Performed By: #### 2777-1, 1 9122-, HSTNT, 35699-7 #### [facility] CLIA [id number] [address] [place] [address] [place] [place] SERPL-MCNC Collected: 01/01/2025 10:13 PM Status: F Source: [facility] Order Comment: Specimen Type : BLOOD SPECIMEN Ordering Facility: [facility] Address: [address] [place] [address] TYPE CODE TESTS RESULT OUT OF RANGE REFERENCE UNITS LAB 2777-1(LOINC) Phosphate SerPl-mCnc 2.5 Low 2.7-4.8 mg/dL Performed By: #### 2777-1, 1 9123-9, HSTNT, 42746-1 #### [facility] CLIA [id number] [address] HIGH SENSITIVITY TROPONIN T Collected: 01/01/2025 10: 13 PM Status: F Source: [facility] Order Comment: Specimen Type : BLOOD SPECIMEN Ordering Facility: [facility] Address: [address] [place] [address] TYPE CODE TESTS RESULT OUT OF RANGE REFERENCE UNITS LAB 12950-8(LOINC) Troponin T SerPl HS-mCnc 22 High <12 ng/L Performed By: #### 2777-1, 1 9123-9, HSTNT, 23946-7 #### [facility] CLIA [id number] [address] CA-I SERPL-SCNC Collected: 10:13 PM Status: F Source: [facility] Order Comment: Specimen Type : BLOOD SPECIMEN Ordering Facility: [facility] Address: [address] [place] [address] TYPE CODE TESTS RESULT OUT OF RANGE REFERENCE UNITS LAB 57426-4(LOINC) Ca-I adj pH7.4 Bld-sCnc 1.29 1.08-1.30 mmol/L LAB 54804-4(LOINC) Ca-I BldV-mCnc 1.24 1.08-1.30 mmol/L Performed By: #### 1995-0 ## ## [facility] CLIA [id number] [address] PLAN OF CARE Observed: 01/01/2025 9:58 PM Status: COMPLETED Source: [facility] HNO ID: [id number] Author: DON STAPLETON MD Service: General Surgery Author Type: Resident Type: Plan of Care Filed: 01/02/2025 02:15 Note Text: Plan of Care Paged by nursing regarding tachycardia to 170s with BP 190/11, O2 requirements from RA to 4 L by NC. Also concern for lethargy/ altered mental status. Patient seen at bedside, intermittently answering questions, AANDO x1 which is her baseline. Did receive melatonin 3 mg at 2002 hrs. Called back to bedside after being informed pt cannot receive 10 mg IV metoprolol on the floor- rapid response was called for sustained HR in 130-140s. Patient asymptomatic although eventually endorsed pain over left chest wall with palpation over site where chest tube had been inserted. Patient given total of 20 mg metoprolol IV. HR and BP improved with small dose of IV dilaudid, after which patient soon fell asleep. Before leaving floor, patient's last HR was 91 with SBP in 140s and off supplemental O2. Physical Exam: GENERAL: Alert NEURO: AANDOx1, CN II-XII grossly intact CHEST: Symmetric chest rise, no increased work of breathing on room air, extensive bruising along left chest wall ABDOMEN: Soft, non-tender, non-distended, no rigidity or guarding EXTREMITIES: BRAGA, no obvious deformities Plan: - Patient's lethargy likely due in part to receiving tylenol and melatonin earlier in the evening, likely due in part to possible ing with baseline AANDO x1 - Toponin of 22 lower than baseline in setting of minor EKG changes - CBC and BMP without concerning results - CXR showing no PTX s/p pulling chest tube - Non-sustained SVT s/p IV metoprolol 20 mg - Will hold off on amio and cardizem for now (rapid response and nursing staff inquiring about starting) Don Stapleton MD 01/02/2025 2:15 AM XR CHEST 1V FRONTAL Observed: 01/01/2025 9:55 PM Status: F Source: [facility] * * *Final Report* * * DATE OF EXAM: Jan 01 2025 9:55PM AKX 5290 - XR CHEST 1V FRONTAL / PROCEDURE REASON: Shortness of breath * * * * Physician Interpretation * * * * EXAMINATION: XR CHEST 1V FRONTAL CLINICAL HISTORY: Shortness of breath Comparison: Chest x-ray January 01, 2025 at 5:06 AM RESULT: Lines, tubes, and devices: Left pleural drain has been removed. Lungs and pleura: Left lower lobe atelectasis. No evidence of a pneumothorax. Cardiomediastinal silhouette: Normal cardiomediastinal silhouette. Bones/soft tissues: No acute findings. IMPRESSION: No acute radiographic abnormality. Cloud Subject Matter Expert: ANA Transcribe Date/Time: Jan 01 2025 11:09P Dictated by : JEFFREY GONZALEZ MD This examination was interpreted and the report reviewed and electronically signed by: JEFFREY GONZALEZ MD on Jan 01 2025 11:11PM EST [id number] NURSING PROG Observed: 01/01/2025 6:24 PM Status: COMPLETED Source: [facility] HNO ID: [id number] Author: ARLEEN DOLAN RN Service: Nursing Author Type: Registered Nurse Type: Nursing Progress Note Filed: 01/01/2025 18:25 Note Text: Other: pt more awake at this time Bladder scan for 317 cc took pt to bsc but was unable to void Pt up to chair awake and alert and oriented times one Will encourage po intake Arleen Dolan RN PLAN OF CARE Observed: 01/01/2025 3:16 PM Status: COMPLETED Source: [facility] HNO ID: [id number] Author: DON STAPLETON MD Service: General Surgery Author Type: Resident Type: Plan of Care Filed: 01/02/2025 01:17 Note Text: Plan of Care Procedure: Chest Tube Removal Pt seen at bedside for L chest tube removal, had some concerns which were addressed. Has two cats, Silvia and Rojas. Proceeded with removing dressing and cutting suture. Pt performed inspiratory hold; tube was removed while occlusive dressing was placed simultaneously. Pt tolerated procedure well with equal chest rise and unlabored breathing on room air afterwards. Will obtain CXR in 4 hrs around 1930 hrs. Plan: - Occlusive dressing to remain in place - Will follow-up on AM CXR 01/02 Don Stapleton MD 01/01/2025 4:02 PM CASE MANAGEM Observed: 01/01/2025 2:47 PM Status: COMPLETED Source: [facility] HNO ID: [id number] Author: CHASITY HAHN RN Service: Care Management Author Type: Registered Nurse Type: Care Mgt Progress Note Filed: 01/01/2025 14:48 Note Text: Attestation signed by Sarah Bell DO at 01/01/2025 2:56 PM Sarah Bell DO CARE MANAGEMENT PROGRESS NOTE SERVICE DATE: 01/01/2025 SERVICE TIME: 2:48 PM LOS: 6 days Physician Certification of Less Than 30 Days Skilled Needs Earliest Possible Discharge Date: 01/01/25 To the best of my knowledge, all information provided about the individual is a true and an accurate reflection of Cristino Verdugo's needs. I certify that following the inpatient level of care, a post-acute nursing facility stay is required for less than 30 days related to the condition(s) for which the patient was treated during the inpatient level of care: Principal Problem: Pneumothorax Active Problems: Fall Closed fracture of multiple ribs of left side Hemopneumothorax on left Alcohol use Type 2 diabetes (HCC) History of stroke History of cholecystectomy IBS (irritable bowel syndrome) Posttraumatic respiratory insufficiency At risk for delirium Acute cystitis without hematuria Acute urinary retention Hypokalemia Hyponatremia SVT (supraventricular tachycardia) ([facility]) Hypophosphataemia Resolved Problems: * No resolved hospital problems. * Attending Physician: Sarah Bell DO SIGNATURE: Chasity Hahn RN PATIENT NAME: Cristino Verdugo DATE: January 01, 2025 TIME: 2:47 PM CASE MANAGEM Observed: 01/01/2025 1:54 PM Status: [facility]ED [id number] Author: CHASITY HAHN RN Service: Care Management Author Type: Registered Nurse Type: Care Mgt Progress Note Filed: 01/01/2025 13:56 Note Text: CARE MANAGEMENT PROGRESS NOTE SERVICE DATE: 01/01/2025 SERVICE TIME: 1:54 PM LOS: 6 days DC Plan: SNF, pt confused, spoke with pt's son Pankaj, agreeable to SNF list, states that [facility] is [facility]; agreeable to sending additional SNF referrals to [facility], referrals sent; will need precert and 7000 once we have accepting facility Anticipated dc date: 01/02-01/03 Transportation: pt will likely need cot transportation at dc due to confusion SIGNATURE: Chasity Hahn RN PATIENT NAME: Cristino Verdugo DATE: January 01, 2025 TIME: 1:54 PM PROGRESS Observed: 01/01/2025 12:54 PM Status: COMPLETED Source: [facility] HNO ID: [id number] Author: CHRISTIE NEIL APRN.CNP Service: General Surgery Author Type: Nurse Practitioner Type: Progress Notes Filed: 01/01/2025 13:35 Note Text: Trauma Surgery Progress Note SERVICE DATE: 01/01/2025 Trauma Service Pager: For questions or concerns Mon-Fri 6a-5p please page [phone]. After 5pm and on Weekends and Holidays, please page [phone] if in ICU or [phone] if on RNF.SUBJECTIVE: Rapid response called overnight due to SVT. Patient with a HR in the 180s, BP stable. She was given 5 mg IV Metoprolol with conversion to SR. Later overnight, trauma surgery was notified of patient's altered mental status. On chart review, patient had received 50 mg PO Seroquel at bedtime. CT brain and ammonia level were obtained, both of which were negative. This morning, patient is drowsy, but arousable to voice. She is slow to answer questions. Respiratory status stable on RA. Left chest tube to water seal, scant serosanguinous drainage noted. Unable to stay awake long enough to participate in pulmonary hygiene exercises. OBJECTIVE: Vitals: Temp (24hrs), Av.8 ?C (98.2 ?F), Min:36.1 ?C (96.9 ?F), Max:37.5 ?C (99.5 ?F) BP 124/59 Pulse 86 Temp 36.8 ?C (98.2 ?F) (Temporal) Resp 18 Ht 156.2 cm (5' 1.5") Wt 57 kg (125 lb 10.6 oz) SpO2 97% BMI 23.36 kg/m? O2 Therapy: Room Air IANDO: Date 12/31/24 07 - 01/01/25 0659 01/01/25 07 - 01/02/25 0659 Shift 2723-7875 7534-7196 1675-4895 24 Hour Total 4319-6655 3432-2655 6319-0235 24 Hour Total INTAKE PO 240 150 390 PO 240 150 390 Shift Total 240 150 390 OUTPUT Urine 250 1 251 350 350 Void (ml) 1 1 Straight cath (ml) 350 350 Urine Not Saved. 1 x 1 x Output ([REMOVED] Indwelling Urinary Catheter 12/28/24 1829 [facility] [place] 12/31/24 1155) 250 250 Chest Tube 10 60 50 120 Chest Tube Output (Chest Tube 12/26/24 2130 Left Lateral Tube #1) 10 60 50 120 # of BMs Number of BMs 1 x 4 x 5 x 1 x 1 x Shift Total 260 61 50 371 350 350 Weight (kg) 57 57 57 57 57 57 57 57 MEDICATIONS: Current Facility-Administered Medications Medication Dose Route Frequency senna-docusate 8.6-50 mg 1 tablet (SENNA-S) 1 tablet ORAL BID PRN metoprolol 5 mg injection (LOPRESSOR) 5 mg INTRAVENOUS q 6 H PRN methocarbamol 500 mg tab(s) (ROBAXIN) 500 mg ORAL TID PRN metoprolol tartrate (short acting) 12.5 mg tab(s) (LOPRESSOR) 12.5 mg ORAL q 8 H folic acid 1 mg tab(s) 1 mg ORAL DAILY enoxaparin 30 mg injection (LOVENOX) 30 mg SUBCUTANEOUS q 12 HR lidocaine 4 % 2 patch (SALONPAS) 2 patch TRANSDERMAL DAILY And lidocaine patch - REMOVE OTHER AT BEDTIME And lidocaine - VERIFY PATCH OTHER q 8 H ipratropium-albuterol 3 mL nebulizer solution (DUONEB) 3 mL INHALATION q 6 H PRN acetaminophen 1,000 mg tab(s) (TYLENOL) 1,000 mg ORAL q 8 H budesonide, enteric coated 9 mg cap(s) (ENTOCORT EC) 9 mg ORAL DAILY cetirizine 10 mg tab(s) (ZYRTEC) 10 mg ORAL DAILY rosuvastatin 10 mg tab(s) (CRESTOR) 10 mg ORAL AT BEDTIME NaCl 0.9% iv flush bag 20 mL INTRAVENOUS PRN ondansetron 4 mg tab(s) (ZOFRAN) 4 mg ORAL q 6 H PRN Or ondansetron (PF) 4 mg injection (ZOFRAN) 4 mg INTRAVENOUS q 6 H PRN oxyCODONE IR 2.5-5 mg tab(s) (ROXICODONE) 2.5-5 mg ORAL q 4 H PRN thiamine 100 mg tab(s) (VITAMIN B1) 100 mg ORAL/FEEDING TUBE TID Labs: Recent Labs 01/01/25 0126 12/31/24 2256 NA 137 139 K 3.8 3.6* CHLOR 106 109* CO2 19* 18* BUN 20 18 CREAT 0.78 0.74 GLUC 94 93 ANION 12 12 CA 8.6 7.8* MG -- 1.9 P -- 1.9* ALB -- 2.9* AST -- 150* ALT -- 93* ALKPHOS -- 198* TBILI -- 0.8 WBC 5.94 6.75 HB 9.9* 10.4* HCT 29.6* 32.4* PLT 147* 150 LACT -- 1.9 PHYSICAL EXAM: Genl: Appears age appropriate. No acute distress. Resting comfortably. Head/Face: Normocephalic. Atraumatic. Eyes: EOMI. Sclera not icteric, not injected Resp: Lung sounds are clear bilat. No wheezes. No rales. Breathing is non-labored on RA @ 97%. Left chest tube to WS. (-) air leak. Serosanguinous drainage in tubing. CVS: RRR as above; 2+ pulses at RA, DP, PT bilat. GI: Abdomen is soft, non-tender, not distended. Bowel sounds normoactive. No peritonitis. MSK: Extremities without clubbing, cyanosis, edema. Normal ROM x 4. Skin: Warm and dry. Not jaundiced. Neuro: AANDOx3. Strength and sensation normal. BRAGA. Psych: Drowsy, slow to respond. ASSESSMENT AND PLAN: Assessment Active Hospital Problems Diagnosis Date Noted Pneumothorax 12/26/2024 At risk for delirium 12/31/2024 Acute cystitis without hematuria 12/31/2024 Acute urinary retention 12/31/2024 Hypokalemia 12/31/2024 Hyponatremia 12/31/2024 SVT (supraventricular tachycardia) ([facility]) 12/31/2024 Hypophosphataemia 12/31/2024 Posttraumatic respiratory insufficiency 12/27/2024 Fall 12/26/2024 Closed fracture of multiple ribs of left side 12/26/2024 Hemopneumothorax on left 12/26/2024 Alcohol use 12/26/2024 Type 2 diabetes (HCC) 12/26/2024 Chronic IBS (irritable bowel syndrome) 12/26/2024 Chronic History of stroke 2013 Chronic History of cholecystectomy 2008 Chronic Assessment: 79-year old female s/p mechanical fall on 12/26/24 (Trauma transfer from [place]) Imaging performed: CT HNCAP ([place] [facility], 12/26) CXR, XR left elbow/forearm (12/26) CXR x 2 (12/27) CXR x 3, CTA chest, CTAP (12/28) CXR (12/29) CXR (12/30) CXR (12/31) CXR (01/01) Traumatic Injuries: Left 6-9 rib fractures with associated hemopneumothorax and subcutaneous emphysema Left elbow contusion with small skin tear Operations/Procedures: 1. 12/27/2024 - Left chest tube inserted 2. 12/28/2024 - Left subclavian CVC (removed 12/30) Care Plan: Left rib fractures with hemopneumothorax S/p left chest tube insertion 12/27/24 CT to water seal 12/[address] output: 120 ml/24 hours, serosanguinous CXR (01/01): No acute process Daily CXR while CT in place Plan for CT removal today, will obtain 2V CXR 4 hours post-removal Respiratory status stable on RA Aggressive pulmonary hygiene Multimodal pain control Mobilize as tolerated ETOH abuse, delirium Patient reports daily wine consumption 3-4 glasses Received Phenobarbital and Ativan at [facility] and during transfer Phenobarb taper discontinued 2/2 sedation CIWA protocol Continue Thiamine, Folate Social work consult Discontinue Seroquel due to drowsiness Start Melatonin at HS Acute urinary retention V[place]la inserted 12/28 due to high volume retention [place]la catheter removed 12/31 and void trial initiated Required straight catheterization x 1 due to continued retention on 01/01 Urinary retention protocol Leukocytosis WBCs 5.0 -> 6.7 -> 5.9 Afebrile, hemodynamically stable Respiratory status stable on RA Blood cultures (12/28): NGTD UA (12/28): +WBCs, leuks UC (12/28): +E.Coli Received Zosyn x 3 days for UTI (12/28-12/31) SVT Patient with episodes of SVT necessitating IV Metoprolol for conversion to SR Consider increasing PO Metoprolol from 12.5 mg TID to 25 mg TID PRN IV Metoprolol 5 mg every 6 hours for HR > 120 Continuous cardiac monitoring Monitor electrolytes and supplement as needed Continue home medications as ordered Current diet order: DIET REGULAR Pain regimen: Scheduled Tylenol, PRN Oxycodone, Robaxin Bowel regimen: None Labs: As above PPX: DVT: Lovenox 30 mg BID, SCDs, mobilize Ulcer: None Vit D level if > 65 yo: 46.4 Consulted Services: SICU PT/OT Social work Dispo Planning: PT/OT recommend SNF. Case management following. Incidentals: None Follow Up Needs: Trauma clinic in 1 week Staff Trauma Surgeon: Dr. Phillips SIGNATURE: Christie Neil APRN.CNP PATIENT NAME: Cristino Verdugo DATE: 01/01/2025 TIME: 12:54 PM Pager: see below Trauma Service Pager: For questions or concerns Mon-Tue 6a-5p please page [phone]. After 5pm and on Weekends and Holidays, please page [phone] if in ICU or [phone] if on RNF. XR ABDOMEN 1V SUPINE Observed: 12:32 PM Status: F Source: [facility] * * *Final Report* * * DATE OF EXAM: Jan 01 2025 12:32PM AKX 5289 - XR ABDOMEN 1V SUPINE / PROCEDURE REASON: Abdominal pain * * * * Physician Interpretation * * * * XR ABDOMEN 1V SUPINE01/01/2025 12:32 PM CLINICAL HISTORY: Abdominal pain COMPARISON: 12/28/2024 TECHNIQUE: XR ABDOMEN 1V SUPINE RESULT: No dilated bowel. Mild stool. No radiopaque densities overlying the renal shadows. Degenerative changes. IMPRESSION: No dilated bowel Cloud Subject Matter Expert: ANA Transcribe Date/Time: Jan 01 2025 1:34P Dictated by : ZAKI JOVEL MD This examination was interpreted and the report reviewed and electronically signed by: ZAKI JOVEL MD on Jan 01 2025 1:35PM EST [id number] URINALYSIS COMPLETE PNL UR Collected: 01/01/2025 11:3 0 AM Status: F Source: [facility] Order Comment: Specimen Type : URINE SPECIMEN Ordering Facility: [facility] Address: [address] [place] [address] TYPE CODE TESTS RESULT OUT OF RANGE REFERENCE UNITS LAB 5778-6(LOINC) Color Ur Yellow yellow LAB 47109-0(LOINC) Clarity Spec Clear Clear LAB 5792-7(LOINC) Glucose Ur Strip-mCnc Negative Trace, Negative LAB 5770-3(LOINC) Bilirub Ur Ql Strip 1+ Abnormal Negative Result Comment: Suggest lakhwinder elation with clinical findings and serum bilirubin if clinically indicated. LAB 2514-8(LOINC) Ketones Ur Strip 1+ Abnormal Negative, Trace LAB 5811-5(LOINC) Sp Gr Ur Strip 1.039 High 1.005-1.030 LAB 5794-3(LOINC) Hgb Ur Ql Strip 3+ Abnormal Negative, Trace LAB 5803-2(LOINC) pH Ur Strip 6.0 5.0-8.0 LAB 5804-0(LOINC) Prot Ur Strip-mCnc 1+ Abnormal Trace, Negative LAB 5818-0(LOINC) Urobilinogen Ur Strip 1+ Abnormal Normal LAB 5802-4(LOINC) Nitrite Ur Ql Strip Negative Negative LAB 5799-2(LOINC) Leukocyte esterase Ur Ql Strip 75 Cady/uL Abnormal Negative, 25 Cady/uL LAB 5821-4(LOINC) WBC #/area UrnS HPF 6-10 /HPF Abnormal 0-5 /HPF LAB 01303-6(LOINC) RBC #/area UrnS HPF >25 /HPF Abnormal 0-3 /HPF LAB 5787-7(LOINC) Epi Cells #/area UrnS HPF Few Abnormal None Seen /HPF LAB 5793-5(LOINC) Gran Casts #/area UrnS LPF >10 /LPF Abnormal 0 /LPF Performed By: #### 31036-9 # ### [facility] CLIA [id number] [address] [facility] NURSING PROG Observed: 01/01/2025 8:20 AM Status: COMPLETED Source: [facility] HNO ID: [id number] Author: ARLEEN DOLAN, RN Service: Nursing Author Type: Registered Nurse Type: Nursing Progress Note Filed: 01/01/2025 10:36 Note Text: Event(s) / Intervention Note: PATIENT NAME: Cristino Verdugo Patient Location: [place] [id number] Room: [place] [address] The patient was observed having the following problems: pt very drowsy this am . Difficult to awaken and falls back asleep easily. The time of the event occurred at: 0820. The following intervention(s) were initiated: Christie Neil CNP notified seroquel at d/c'd. After the initiated interventions, the following observation(s) were made: nothing further noted. Will continue to observe and check with patient. 0945 Bladder scan shows 312 I got pt up to the bsc she had medium size loose dark bm but was unable to urinate. I walked her to the chair and pt immediately fell asleep once in the chair. Pt keeps saying "I don't feel well.I am in pain" pt states pain is in her stomach Christie Neil CNP notified and will order for stat KUB Pt sleeping in the chair able to wake up but falls back asleep immediately. Vitals stable Arleen Dolan RN XR CHEST 1V FRONTAL Observed: 01/01/2025 5:18 AM Status: F Source: [facility] * * *Final Report* * * DATE OF EXAM: Jan 01 2025 5:18AM AKX 5290 - XR CHEST 1V FRONTAL / PROCEDURE REASON: Evaluate tube, line, or lead position * * * * Physician Interpretation * * * * EXAMINATION: CHEST RADIOGRAPH (SINGLE VIEW AP OR PA) CLINICAL HISTORY: Evaluate tube, line, or lead position MQ: XC1_5 Comparison: 12/31/2024 RESULT: Lines, tubes, and devices: Left basilar tube. Lungs and pleura: Low lung lines. No pneumothorax. Left basilar atelectasis. No focal consolidation. No sizable pneumothorax. Cardiomediastinal silhouette: Normal cardiomediastinal silhouette. Other: Multiple left-sided rib fractures. Chest wall emphysema IMPRESSION: Stable exam Cloud Subject Matter Expert: PSCB Transcribe Date/Time: Jan 01 2025 9:22A Dictated by : ZAKI JOVEL MD This examination was interpreted and the report reviewed and electronically signed by: ZAKI JOVEL MD on Jan 01 2025 9:23AM EST [id number] CT BRAIN WO IVCON Observed: 01/01/2025 1:47 AM Status: F Source: [facility] * * *Final Report* * * DATE OF EXAM: Jan 01 2025 1:47AM [facility] 0504 - CT BRAIN WO IVCON / PROCEDURE REASON: Mental status change, unknown cause * * * * Physician Interpretation * * * * EXAMINATION: CT BRAIN WO IVCON CLINICAL HISTORY: Altered mental status TECHNIQUE: Serial axial images without IV contrast were obtained from the vertex to the foramen magnum. MQ: CTBWO_3 CT Radiation dose: Integrated Dose-Length Product (DLP) for this visit = 762 mGy*cm CT Dose Reduction Employed: Iterative recon COMPARISON: None. RESULT: Localizer images: Unremarkable Post-operative change: None. Acute change: No evidence of an acute infarct or other acute parenchymal process. Hemorrhage: No evidence of acute intracranial hemorrhage. ECASS hemorrhagic transformation score: Not Applicable Mass Lesion / Mass Effect: There is no evidence of an intracranial mass or extraaxial fluid collection. No significant mass effect. Chronic change: Right basal ganglia/external capsule encephalomalacia may reflect the sequela of remote hemorrhagic insult. Patchy foci of low attenuation are present within the supratentorial white matter, a nonspecific finding that most commonly represents moderate small vessel disease. Parenchyma: There is no significant volume loss. The brain parenchyma is otherwise within normal limits for age. Ventricles: The ventricles are within normal limits of size and configuration for age. Paranasal sinuses and skull base: The visualized paranasal sinuses are grossly clear. The skull base and imaged soft tissues are unremarkable. IMPRESSION: No acute intracranial abnormality. Cloud Subject Matter Expert: PSCB Transcribe Date/Time: Jan 01 2025 3:17A Dictated by : SRINATH ARGUETA MD This examination was interpreted and the report reviewed and electronically signed by: SRINATH ARGUETA MD on Jan 01 2025 3:20AM EST [id number] BAS METAB 2000 PNL SERPL Collected: 1:26 AM Status: F Source: [facility] Order Comment: Specimen Type : BLOOD SPECIMEN Ordering Facility: [facility] Address: [address] [place] [address] TYPE CODE TESTS RESULT OUT OF RANGE REFERENCE UNITS LAB 2345-7(LOINC) Glucose SerPl-mCnc 94 74-99 mg/dL Result Comment: The [place] Diabetes Association (ADA) provides guidance for cutoff values for fasting glucose and random glucose. The ADA defines fasting as no caloric intake for at least 8 hours. Fasting plasma glucose results between 100 to 125 mg/dL indicate increased risk for diabetes (prediabetes). Fasting plasma glucose results greater than or equal to 126 mg/dL meet the criteria for diagnosis of diabetes. In the absence of unequivocal hyperglycemia, results should be confirmed by repeat testing. In a patient with classic symptoms of hyperglycemia or hyperglycemic crisis, random plasma glucose results greater than or equal to 200 mg/dL meet the criteria for diagnosis of diabetes. Reference: Standards of Medical Care in Diabetes 2016, [place] Diabetes Association. Diabetes Care. 2016.39(Suppl 1). LAB 3094-0(LOINC) BUN SerPl-mCnc 20 7-21 mg/dL LAB 2160-0(LOINC) Creat SerPl-mCnc 0.78 0.58-0.96 mg/dL LAB 2951-2(LOINC) Sodium SerPl-sCnc 137 136-144 mmol/L LAB 2823-3(LOINC) Potassium SerPl-sCnc 3.8 3.7-5.1 mmol/L LAB 2075-0(LOINC) Chloride SerPl-sCnc 106 98-107 mmol/L LAB 2028-9(LOINC) CO2 SerPl-sCnc 19 Low 22-30 mmol/L LAB 1863-0(LOINC) Anion Gap4 SerPl-sCnc 12 8-15 mmol/L LAB 16037-7(LOINC) Calcium SerPl-mCnc 8.6 8.5-10.2 mg/dL LAB 60167-9(LOINC) eGFRcr SerPlBld CKD-EPI 2020 78 >=60 mL/min/1. 73m??? Result Comment: Estimated Gl omerular Filtration Rate (eGFR) is calculated using the 2020 CKD-EPI creatinine equation. This equation utilizes serum creatinine, sex, and age as parameters. The creatinine assay has traceable calibration to isotope dilution-mass spectrometry. Refer to KDIGO guidelines for clinical interpretation. In patients with unstable renal function, e.g. those with acute kidney injury, the eGFR may not accurately reflect actual GFR. Performed By: #### 73940-1 # ### [facility] CLIA [id number] [address] [facility] CBC PNL BLD AUTO Collected: 01/01/2025 1:26 AM Statu s: F Source: [facility] Order Comment: Specimen Type : BLOOD SPECIMEN Ordering Facility: [facility] Address: [address] [place] [address] TYPE CODE TESTS RESULT OUT OF RANGE REFERENCE UNITS LAB 6690-2(LOINC) WBC # Bld Auto 5.94 3.70-11.00 k/uL LAB 789-8(LOINC) RBC # Bld Auto 2.78 Low 3.90-5.20 m/ uL LAB 718-7(LOINC) Hgb Bld-mCnc 9.9 Low 11.5-15.5 g/dL LAB 4544-3(LOINC) Hct VFr Bld Auto 29.6 Low 36.0-46.0 % LAB 787-2(LOINC) MCV RBC Auto 106.5 High 80.0-100.0 fL LAB 785-6(LOINC) MCH RBC Qn Auto 35.6 High 26.0-34.0 pg LAB 786-4(LOINC) MCHC RBC Auto-mCnc 33.4 30.5-36.0 g/dL LAB 78581-7(LOINC) RDW RBC-Rto 12.9 11.5-15.0 % LAB 777-3(LOINC) Platelet # Bld Auto 147 Low 150-400 k/uL LAB 36173-2(LOINC) PMV Bld Auto 10.6 9.0-12.7 fL LAB 771-6(LOINC) nRBC # Bld Auto <0.01 <0.01 k/uL Performed By: #### 16634-6 # ### [facility] CLIA [id number] [address] AMMONIA PLAS-SCNC Collected: 01/01/2025 1:26 AM Stat us: F Source: [facility] Order Comment: Specimen Type : BLOOD SPECIMEN Ordering Facility: [facility] Address: [address] [place] [address] TYPE CODE TESTS RESULT OUT OF RANGE REFERENCE UNITS LAB 83226-1([facility]) Ammonia Plas-sCnc 22 11-51 umol/L Performed By: #### 40988-3 # ### [facility] CLIA [id number] [address] PLAN OF CARE Observed: 01/01/2025 1:18 AM Status: COMPLETED Source: [facility] HNO ID: [id number] Author: ROSETTA HURTADO MD Service: General Surgery Author Type: Resident Type: Plan of Care Filed: 01/01/2025 01:20 Note Text: Paged regarding acute change in mental status of patient. Evaluated at bedside. Her heart rate has remained stable since previous INFORMATION SECURITY was called. She has not needed PRN BP medications. Patient now does not follow any commands including moving her hands or feet. She opens her eyes when her name is stated but does not track and immediately closes them. Ammonia ordered and CTH. Will follow up. Rosetta Hurtado MD PGY 1 Urology 1:20 AM 01/01/25 XR CHEST 1V FRONTAL Observed: 12/31/2024 11:26 PM Status: F Source: [facility] * * *Final Report* * * DATE OF EXAM: Dec 31 2024 11:26PM AKX [id number] - XR CHEST 1V FRONTAL / PROCEDURE REASON: Chest pain * * * * Physician Interpretation * * * * EXAMINATION: CHEST RADIOGRAPH (SINGLE VIEW AP OR PA) CLINICAL HISTORY: Chest pain MQ: XC1_5 Comparison: 12/31/2024, 7:02 AM RESULT: The cardiomediastinal silhouette is unchanged. Similar left rib fractures and positioning of left thoracostomy catheter. No enlarging pneumothorax. Small volume soft tissue gas again noted at the left chest wall. IMPRESSION: Similar left rib fractures and left thoracostomy catheter. No enlarging pneumothorax. Cloud Subject Matter Expert: ANA Transcribe Date/Time: Dec 31 2024 11:54P Dictated by : KELLY DAMON MD This examination was interpreted and the report reviewed and electronically signed by: KELLY DAMON MD on Dec 31 2024 11:54PM EST [id number] PLAN OF CARE Observed: 12/31/2024 11:18 PM Status: COMPLETED Source: [facility] HNO ID: [id number] Author: ROSETTA HURTADO MD Service: General Surgery Author Type: Resident Type: Plan of Care Filed: 12/31/2024 23:22 Note Text: Paged due to INFORMATION SECURITY being called on patient for heart rates in the 160s and appearance of SVT on EKG. INFORMATION SECURITY team was already in room upon arrival. Blood pressure stable at 137/93. Patient resting comfortably in bed. Heart rates were >160. Patient able to follow commands however AANDO x 1. Per INFORMATION SECURITY team, patient was given metoprolol 5 mg, and labs were ordered including VBG, CBC, BMP, magnesium, phosphorus. A repeat chest x-ray was also ordered. After being given the metoprolol, patient heart rates decreased to the 80s and remained stable. INFORMATION SECURITY team gave patient 40 IV potassium and added PRN 5 mg IV Lopressor. Surgery will follow-up labs and repeat chest x-ray. Will continue to monitor. Rosetta Hurtado MD PGY 1 Urology 11:22 PM 12/31/24 PROGRESS Observed: 12/31/2024 11:00 PM Status: COMPLETED Source: [facility] HNO ID: [id number] Author: SANTOSH ROSSI APRN.RENNY Service: Critical Care Author Type: Nurse Practitioner Type: Progress Notes Filed: 12/31/2024 23:57 Note Text: EMERGENCY RESPONSE TEAM Rapid Response Date of MET Page: December 31, 2024 Time of MET Page: [phone] Requesting Provider: Bedside RN SUMMARY DIAGNOSIS, ASSESSMENT and RECOMMENDATIONS INFORMATION SECURITY called for SVT (HR 140s) Briefly, Cristino Verdugo is a 79 year old female with significant PMHx of DM2, prior CVA, ETOH use, GERD, HTN and fibromyalgia who was admitted 12/26 s/p fall with left 6-9 rib fractures with associated hemopneumothorax and subcutaneous emphysema. Her hospital course was c/b sepsis of unclear source and recurrent SVT. This evening rapid response was called for SVT. On arrival to bedside patient is resting in bed, drowsy (did receive 50mg Quetiapine at 2007), awakens to name, AOx1 (baseline). She denies any pain, shortness of breath or difficulty breathing. EKG performed, SVT with rates 180s. STAT labs obtained. 5mg IV lopressor given with improvement in her HR to the 80s. Surgery resident arrived at bedside, update given, agrees with the plan of care and interventions below. Patient is stable to remain on RNF at this time. #SVT, recurrent #Hypokalemia #Hypophosphatemia #Elevated liver enzymes Labs: CBC, CMP, Mag, Phos, TSH Potassium 3.6 CO2 18 Mag 1.9 Phos 1.9 Alk Phos 198 ALT 93 AST 150 Procal 0.70 (prior 1.16 pm 12/29) Lactate 1.9 TSH 4.680 H/H 10.4/32.4 STAT VB.35, pCO2 43, pO2 48, HCO3 23 STAT CXR 5mg IV lopressor 40mEq KCl 15mmol NaPhos Added PRN 5mg IV lopressor Q6 (put comment that nursing needs to notify primary if administered) Continuous pulse ox monitoring Status: Stable PLAN, DISPOSITION and OUTCOME Responded to therapy, remains on current unit under care of: Dr Copeland History of Present Illness: See above PRIMARY REASON FOR CALL Cardiac: Heart rate <40 or >140 with new symptoms Any Heart Rate >150 PAST MEDICAL / SURGICAL HISTORY PAST MEDICAL HISTORY Diagnosis Date GERD (Gastroesophageal Reflux Disease) HTN (Hypertension), Benign IBS (Irritable Bowel Syndrome) , PAST SURGICAL HISTORY Procedure Laterality Date L'SCOPE DULCE MARIA W/CHOLANGIOGRAPHY 03-03-09 , Active Hospital Problems Diagnosis Pneumothorax At risk for delirium Acute cystitis without hematuria Acute urinary retention Hypokalemia Hyponatremia Posttraumatic respiratory insufficiency Fall Closed fracture of multiple ribs of left side Hemopneumothorax on left Alcohol use Type 2 diabetes (HCC) IBS (irritable bowel syndrome) History of stroke History of cholecystectomy MEDICATIONS Current Facility-Administered Medications Medication Dose Route Frequency [START ON 01/01/2025] potassium chloride iv piggyback 20 mEq/100 mL 20 mEq INTRAVENOUS q 1 H metoprolol 5 mg injection (LOPRESSOR) 5 mg INTRAVENOUS q 6 H PRN [START ON 01/01/2025] sodium phosphate 15 mmol in D5W 250 mL 15 mmol INTRAVENOUS ONCE keTORolac 15 mg injection (Toradol) 15 mg INTRAVENOUS q 6 H methocarbamol 500 mg tab(s) (ROBAXIN) 500 mg ORAL TID PRN QUEtiapine 50 mg tab(s) (SEROquel) 50 mg ORAL AT BEDTIME metoprolol tartrate (short acting) 12.5 mg tab(s) (LOPRESSOR) 12.5 mg ORAL q 8 H polyethylene glycol 3350 17 g packet 17 g ORAL DAILY folic acid 1 mg tab(s) 1 mg ORAL DAILY enoxaparin 30 mg injection (LOVENOX) 30 mg SUBCUTANEOUS q 12 HR lidocaine 4 % 2 patch (SALONPAS) 2 patch TRANSDERMAL DAILY And lidocaine patch - REMOVE OTHER AT BEDTIME And lidocaine - VERIFY PATCH OTHER q 8 H ipratropium-albuterol 3 mL nebulizer solution (DUONEB) 3 mL INHALATION q 6 H PRN acetaminophen 1,000 mg tab(s) (TYLENOL) 1,000 mg ORAL q 8 H senna-docusate 8.6-50 mg 1 tablet (SENNA-S) 1 tablet ORAL BID budesonide, enteric coated 9 mg cap(s) (ENTOCORT EC) 9 mg ORAL DAILY cetirizine 10 mg tab(s) (ZYRTEC) 10 mg ORAL DAILY rosuvastatin 10 mg tab(s) (CRESTOR) 10 mg ORAL AT BEDTIME NaCl 0.9% iv flush bag 20 mL INTRAVENOUS PRN ondansetron 4 mg tab(s) (ZOFRAN) 4 mg ORAL q 6 H PRN Or ondansetron (PF) 4 mg injection (ZOFRAN) 4 mg INTRAVENOUS q 6 H PRN oxyCODONE IR 2.5-5 mg tab(s) (ROXICODONE) 2.5-5 mg ORAL q 4 H PRN thiamine 100 mg tab(s) (VITAMIN B1) 100 mg ORAL/FEEDING TUBE TID and Prescriptions Prior to Admission[1] ALLERGIES ALLERGIES Allergen Reactions Milk Containing Pro* Diarrhea Penicillins PERTINENT PHYSICAL EXAM and INITIAL ASSESSMENT (For vital signs prior and during MET call, see nursing documentation) Pertinent Vital Signs at Time of MET Call: See rapid response documentation Appearance: Drowsy, no distress Airway Examination: Mouth Opening Finger Breaths: 3 Airway Patent: Yes Breathing Evaluation: non-labored, symmetrical chest rise Breathing Adequate: Yes Circulation Evaluation: Skin warm/dry and Pulses Full, bounding Circulation Adequate: Yes Neurologic Evaluation: Drowsy, AOx1, no focal neuro deficits Is the Level of Consciousness at Baseline: Yes, per nursing patient is more drowsy then prior but baseline of AOx1 PERTINENT DIAGNOSTICS Labs (Reviewed and include): Recent Labs 12/31/24 2256 12/31/24 0411 12/30/24 0336 WBC 6.75 5.07 5.59 HB 10.4* 10.4* 10.2* HCT 32.4* 31.3* 31.9* PLT 150 118* 101* NA 139 142 137 K 3.6* 3.2* 4.0 CHLOR 109* 105 109* CO2 18* 23 20* BUN 18 12 17 CREAT 0.74 0.80 0.80 GLUC 93 93 84 CA 7.8* 7.6* 7.4* MG 1.9 -- -- P 1.9* -- -- Recent Labs 12/31/242255 TPROT 5.3* ALB 2.9* ALT 93* AST 150* ALKPHOS 198* TBILI 0.8 LACT 1.9 Bedside POC: Glucose 99 EKG: Imaging: INTERVENTIONS Monitoring Pulse Oximetry and Telemetry Monitoring See additional documentation: see above Intervention Response: Improved Primary Team Aware/Notified: Yes > general surgery resident at bedside CRITICAL CARE TIME: I personally spent 40 minutes directly supervising and providing critical care in the prevention of imminent deterioration as noted above, exclusive of any procedures I performed or supervised I have reviewed, approved and signed the paper MET note. Please refer to this for complete orders and nursing/respiratory documentation. SIGNATURE: Santosh Rossi APRN.HISTORIC PRESERVATIONIST PATIENT NAME: Cristino Verdugo DATE: December 31, 2024 TIME: 11:01 PM PAGER: [phone] [1] budesonide, enteric coated (ENTOCORT EC) 3 mg 24 hr capsule, Take 9 mg by mouth once daily., Disp: , Rfl: clopidogrel (PLAVIX) 75 mg tablet, Take 75 mg by mouth once daily., Disp: , Rfl: fexofenadine (JERALD) 180 mg tablet, Take 180 mg by mouth once daily., Disp: , Rfl:fluticasone (FLONASE ALLERGY RELIEF) 50 mcg/actuation nasal spray, Use 2 sprays in each nostril once daily., Disp: , Rfl: Ibandronate 150 mg tablet, Take 150 mg by mouth once every month. In AM with cup of water on empty stomach. Nothing else by mouth and stay upright for 60 min., Disp: , Rfl: irbesartan (AVAPRO) 75 mg tablet, Take 75 mg by mouth daily at bedtime., Disp: , Rfl:metoprolol tartrate, short acting, (LOPRESSOR) 25 mg tablet, Take 12.5 mg by mouth two times a day., Disp: , Rfl: rosuvastatin (CRESTOR) 10 mg tablet, Take 10 mg by mouth once daily., Disp: , Rfl: PROCALCITONIN SERPL-MCNC Collected: 12/31/2024 10:56 PM Status: F Source: [facility] Order Comment: Specimen Type : BLOOD SPECIMEN Ordering Facility: [facility] Address: [address] [place] [address] TYPE CODE TESTS RESULT OUT OF RANGE REFERENCE UNITS LAB 65366-8(LOINC) Procalcitonin SerPl-mCnc 0.70 High <0.09 ng/mL Result Comment: For a guided interpretation of test results, please visit the Change in Procalcitonin Calculator, [email or web address]. Performed By: #### 24864-8 # ### [facility] CLIA [id number] [address] [place] [address] [place] [facility] CBC PNL BLD AUTO Collected: 12/31/2024 10:56 PM Stat us: F Source: [facility] Order Comment: Specimen Type : BLOOD SPECIMEN Ordering Facility: [facility] Address: [address] [place] [address] TYPE CODE TESTS RESULT OUT OF RANGE REFERENCE UNITS LAB 6690-2(LOINC) WBC # Bld Auto 6.75 3.70-11.00 k/uL LAB 789-8(LOINC) RBC # Bld Auto 3.09 Low 3.90-5.20 m/ uL LAB 718-7(LOINC) Hgb Bld-mCnc 10.4 Low 11.5-15.5 g/dL LAB 4544-3(INC) Hct VFr Bld Auto 32.4 Low 36.0-46.0 % LAB 787-2(INC) MCV RBC Auto 104.9 High 80.0-100.0 fL LAB 785-6([facility]) MCH RBC Qn Auto 33.7 26.0-34.0 pg LAB 786-4([facility]) MCHC RBC Auto-mCnc 32.1 30.5-36.0 g/dL LAB 30497-3([facility]) RDW RBC-Rto 12.8 11.5-15.0 % LAB 777-3([facility]) Platelet # Bld Auto 150 150-400 k/uL LAB 06991-3([facility]) PMV Bld Auto 10.6 9.0-12.7 fL LAB 771-6([facility]) nRBC # Bld Auto <0.01 <0.01 k/uL Performed By: #### 87750-6 # ### [facility] CLIA [id number] 1 [place] [address] [place] [facility] GAS + CO PNL BLDV Collected: 5 10:56 PM Status: F Source: [facility] Order Comment: Specimen Type : VENOUS BLOOD SPECIMEN Ordering Facility: [facility] Address: [address] [place] [address] TYPE CODE TESTS RESULT OUT OF RANGE REFERENCE UNITS LAB 2746-6(LOINC) pH BldV 7.35 7.32-7.42 LAB 2020-4(LOINC) pCO2 BldV 43 42-55 mmHg LAB 2705-2(LOINC) pO2 BldV 48 High 35-45 mmHg LAB 2711-0(LOINC) SaO2 % BldV 80 60-85 % LAB BDVEN BASE DEFICIT, VENOUS -2 -2-0 mmol/L LAB 31946-9(LOINC) HCO3 BldV-sCnc 23 Low 24-28 mmol/L LAB 2716-9([facility]) OxyHgb MFr BldV 77 60-85 % LAB 2032-1([facility]) COHgb MFr BldV 2.3 High 0.0-2.0 % Result Comment: Carboxyhemog lobin Reference Range for Smokers: 2.0-8.0% LAB 2614-6([facility]) MetHgb MFr Bld 0.8 0.0-1.5 % LAB 2947-0([facility]) Sodium Bld-sCnc 138 136-144 mmol/L LAB 6298-4([facility]) Potassium Bld-sCnc 3.6 3.5-5.0 mmol/L LAB CHLWBBG CHLORIDE WHOLE BLOOD 108 High 97-105 mmol/L LAB 32247-2([facility]) Ca-I BldV-mCnc 1.17 1.08-1.30 mmol/L LAB 60875-2([facility]) Ca-I adj pH7.4 BldA-sCnc 1.13 1.08-1.30 mmol/L LAB 2339-0([facility]) Glucose Bld-mCnc 101 60-105 mg/dL LAB 52613-3([facility]) Lactate Bld-sCnc 1.9 0.5-2.2 mmol/L LAB 718-7([facility]) Hgb Bld-mCnc 10.9 Low 11.5-15.5 g/dL LAB 4544-3([facility]) Hct VFr Bld Auto 33.7 Low 36.0-46.0 % LAB VTMP TEMPERATURE, BODY 37.0 C LAB VO2TH O2 THERAPY RA=Room Air Performed By: #### 67895-9 # ### [facility] CLIA [id number] 1 [place] [address] [place] COMP METAB 2000 PNL SERPL Collected: 10:56 PM Status: F Source: [facility] Order Comment: Specimen Type : BLOOD SPECIMEN Ordering Facility: [facility] Address: [address] [place] [address] TYPE CODE TESTS RESULT OUT OF RANGE REFERENCE UNITS LAB 2885-2([facility]) Prot SerPl-mCnc 5.3 Low 6.3-8.0 g/dL LAB 1751-7(LOINC) Albumin SerPl-mCnc 2.9 Low 3.9-4.9 g/dL LAB 10810-3(LOINC) Calcium SerPl-mCnc 7.8 Low 8.5-10.2 mg/dL LAB 1975-2(LOINC) Bilirub SerPl-mCnc 0.8 0.2-1.3 mg/dL LAB 6768-6(LOINC) ALP SerPl-cCnc 198 High 34-123 U/L LAB 90342-9(LOINC) AST SerPl w P-5'-P-cCnc 150 High 13-35 U/L LAB 1743-4(LOINC) ALT SerPl w P-5'-P-cCnc 93 High 7-38 U/L LAB 2345-7(INC) Glucose SerPl-mCnc 93 74-99 mg/dL Result Comment: The [place] Diabetes Association (ADA) provides guidance for cutoff values for fasting glucose and random glucose. The ADA defines fasting as no caloric intake for at least 8 hours. Fasting plasma glucose results between 100 to 125 mg/dL indicate increased risk for diabetes (prediabetes). Fasting plasma glucose results greater than or equal to 126 mg/dL meet the criteria for diagnosis of diabetes. In the absence of unequivocal hyperglycemia, results should be confirmed by repeat testing. In a patient with classic symptoms of hyperglycemia or hyperglycemic crisis, random plasma glucose results greater than or equal to 200 mg/dL meet the criteria for diagnosis of diabetes. Reference: Standards of Medical Care in Diabetes 2016, [place] Diabetes Association. Diabetes Care. 2016.39(Suppl 1). LAB 3094-0(LOINC) BUN SerPl-mCnc 18 7-21 mg/dL LAB 2160-0(LOINC) Creat SerPl-mCnc 0.74 0.58-0.96 mg/dL LAB 2951-2(LOINC) Sodium SerPl-sCnc 139 136-144 mmol/L LAB 2823-3(LOINC) Potassium SerPl-sCnc 3.6 Low 3.7-5.1 mmol/L LAB 2075-0(LOINC) Chloride SerPl-sCnc 109 High 98-107 mmol/L LAB 2028-9(LOINC) CO2 SerPl-sCnc 18 Low 22-30 mmol/L LAB 1863-0(LOINC) Anion Gap4 SerPl-sCnc 12 8-15 mmol/L LAB 97323-6(LOINC) eGFRcr SerPlBld CKD-EPI 2020 83 >=60 mL/min/1. 73m??? Result Comment: Estimated Gl omerular Filtration Rate (eGFR) is calculated using the 2020 CKD-EPI creatinine equation. This equation utilizes serum creatinine, sex, and age as parameters. The creatinine assay has traceable calibration to isotope dilution-mass spectrometry. Refer to KDIGO guidelines for clinical interpretation. In patients with unstable renal function, e.g. those with acute kidney injury, the eGFR may not accurately reflect actual GFR. Performed By: #### 42203-4, 85120-8, 2777-1, HSTNT, 3016-3 #### [facility] CLIA [id number] [address] MAGNESIUM SERPL-MCNC Collected: 12/31/2024 10:56 PM Status: F Source: [facility] Order Comment: Specimen Type : BLOOD SPECIMEN Ordering Facility: [facility] Address: [address] [place] [address] TYPE CODE TESTS RESULT OUT OF RANGE REFERENCE UNITS LAB 42303-5(INC) Magnesium SerPl-mCnc 1.9 1.7-2.3 mg/dL Performed By: #### 91531-4, 89481-8, 2777-1, HSTNT, 3016-3 #### [facility] CLIA [id number] [address] [facility] PHOSPHATE SERPL-MCNC Collected: 12/31/2024 10:56 PM Status: F Source: [facility] Order Comment: Specimen Type : BLOOD SPECIMEN Ordering Facility: [facility] Address: [address] [place] [address] TYPE CODE TESTS RESULT OUT OF RANGE REFERENCE UNITS LAB 2777-1(LOINC) Phosphate SerPl-mCnc 1.9 Low 2.7-4.8 mg/dL Performed By: #### 33284-0, 37032-6, 2777-1, HSTNT, 3016-3 #### [facility] CLIA [id number] [address] TSH SERPL-ACNC Collected: 10:56 PM Status: F Source: [facility] Order Comment: Specimen Type : BLOOD SPECIMEN Ordering Facility: [facility] Address: [address] [place] [address] TYPE CODE TESTS RESULT OUT OF RANGE REFERENCE UNITS LAB 48030-0(LOINC) TSH SerPl DL<=0.005 mIU/L-aCnc 4.680 High 0.270-4.200 mIU/L Performed By: #### 47564-8, 99821-1, 2777-1, HSTNT, 3016-3 #### [facility] CLIA [id number] [address] HIGH SENSITIVITY TROPONIN T Collected: 12/31/2024 10: 56 PM Status: F Source: [facility] Order Comment: Specimen Type : BLOOD SPECIMEN Ordering Facility: [facility] Address: [address] [place] [address] TYPE CODE TESTS RESULT OUT OF RANGE REFERENCE UNITS LAB 22429-2(LOINC) Troponin T SerPl HS-mCnc 30 High <12 ng/L Performed By: #### 69618-4, 63951-3, 2777-1, HSTNT, 3016-3 #### [facility] CLIA [id number] [address] ECG COMPLETE Observed: 12/31/2024 10:50 PM Status: F Source: [facility] Ventricular Rate : 168 BPM Atrial Rate : 168 BPM P-R Interval : 114 ms QRS Duration : 74 ms Q-T Interval : 290 ms QTC Calculation(Bazett) : 484 ms Calculated P [place] : -5 degrees Calculated R [place] : 5 degrees Calculated T [place] : 199 degrees Long RP SVT SEPTAL INFARCT , AGE UNDETERMINED MARKED ST ABNORMALITY, POSSIBLE INFEROLATERAL SUBENDOCARDIAL INJURY ABNORMAL ECG WHEN COMPARED WITH ECG OF 29-Dec-2024 00:31, NO SIGNIFICANT CHANGE WAS FOUND Confirmed by MANUELITO CROWDER, ALLY ([id number]) on 01/01/2025 2:38:11 PM NAME : CRISTINO MATA PID : [id number] : 1945 Gender : Female Race : ORD : [id number] Procedure Date : Dec 31 2024 22:50:48 Edit Date : Jan 01 2025 14:38:12 Diagnosis: Long RP SVT SEPTAL INFARCT , AGE UNDETERMINED MARKED ST ABNORMALITY, POSSIBLE INFEROLATERAL SUBENDOCARDIAL INJURY ABNORMAL ECG WHEN COMPARED WITH ECG OF 29-Dec-2024 00:31, NO SIGNIFICANT CHANGE WAS FOUND Confirmed by ALLY BILLINGS MD ([id number]) on 01/01/2025 2:38:11 PM Test Reason : Arrhythmia Location : [address] : [place] [address] Overread By : ALLY BILLINGS MD Edited By : ALLY BILLINGS MD Referred By : , Acquired by : CHRISTIE GRIFFITH NURSING PROG Observed: 12/31/2024 10:40 PM Status: COMPLETED Source: [facility] HNO ID: [id number] Author: JULIÁN HOPKINS RN Service: Nursing Author Type: Registered Nurse Type: Nursing Progress Note Filed: 12/31/2024 23:59 Note Text: Heart rate alarming on quality assurance monitor body. Heart rate sustaining 160's-170's. Patient asymptomatic. Blood pressure 108/67. Scheduled PO metoprolol unable to be given at this time due to MAR hold parameters. Rapid response team called. CASE MANAGEM Observed: 12/31/2024 4:53 PM Status: COMPLETED Source: [facility] HNO ID: [id number] Author: CHASITY HAHN RN Service: Care Management Author Type: Registered Nurse Type: Care Mgt Progress Note Filed: 12/31/2024 16:56 Note Text: CARE MANAGEMENT PROGRESS NOTE SERVICE DATE: 12/31/2024 SERVICE TIME: 4:53 PM LOS: 5 days DC Plan: tbd, attempted to speak with pt x2, pt initially agreeable to discussing SNF , interested in reaching out to [facility] SNF, later pt was unable to recall our conversation from earlier in the day about SNF and pt did not want to talk about it further; attempted to call pt's son Pankaj but the person who answered the phone stated it was the wrong phone number Anticipated dc date: tbd Transportation: pt will likely need transportation arrangements at dc SIGNATURE: Chasity Hahn RN PATIENT NAME: Cristino Verdugo DATE: December 31, 2024 TIME: 4:53 PM PROGRESS Observed: 12/31/2024 10:43 AM Status: COMPLETED Source: [facility] HNO ID: [id number] Author: CARL TELLEZ APRN.CNP Service: General Surgery Author Type: Nurse Practitioner Type: Progress Notes Filed: 12/31/2024 11:52 Note Text: Trauma Surgery Progress Note SERVICE DATE: 12/31/2024 Trauma Service Pager: For questions or concerns Mon-Fri 6a-5p please page [phone]. After 5pm and on Weekends and Holidays, please page [phone] if in ICU or [phone] if on RNF.SUBJECTIVE: Patient up to chair this morning. Drowsy and slow to answer questions. Received haldol overnight. Tolerating diet without nausea. Reports pain is controlled at rest. States some Shortness of Breath. Unable to stay alert enough to participate with incentive spirometer. OBJECTIVE: Vitals: Temp (24hrs), Av.5 ?C (97.7 ?F), Min:36.4 ?C (97.5 ?F), Max:36.6 ?C (97.9 ?F) BP 135/65 Pulse 105 Temp 36.6 ?C (97.9 ?F) (Temporal) Resp 18 Ht 156.2 cm (5' 1.5") Wt 57 kg (125 lb 10.6 oz) SpO2 94% BMI 23.36 kg/m? O2 Therapy: Room Air IANDO: Date 12/30/24699 - 12/31/24 0659 12/31/24 07 - 01/01/25 0659 Shift 6020-7650 7258-1055 1739-6518 24 Hour Total 4213-8824 4512-6372 1127-2459 24 Hour Total INTAKE PO 30 350 380 PO 30 350 380 IV 5884 899 9049 Volume (mL) (piperacillin-tazobactam iv piggyback 3.375 g in dextrose (iso-osmotic) 50 mL (ZOSYN)) 100 100 Volume (mL) (lactated ringers iv infusion) 5492 602 6621 Shift Total 1560 1005 2565 OUTPUT Urine 310 702 775 0788 Output ( Indwelling [facility] 310 202 226 1292 Chest Tube 90 260 70 420 10 10 Chest Tube Output (Chest Tube 12/26/24 2130 Left Lateral Tube #1) 90 260 70 420 10 10 # of BMs Number of BMs 1 x 2 x 3 x Shift Total 400 460 253 1413 10 10 Weight (kg) 57 57 57 57 57 57 57 57 MEDICATIONS: Current Facility-Administered Medications Medication Dose Route Frequency haloperidol lactate 2 mg short-acting injection (HALDOL) 2 mg INTRAVENOUS q 6 H PRN keTORolac 15 mg injection (Toradol) 15 mg INTRAVENOUS q 6 H methocarbamol 500 mg tab(s) (ROBAXIN) 500 mg ORAL TID PRN QUEtiapine 50 mg tab(s) (SEROquel) 50 mg ORAL AT BEDTIME metoprolol tartrate (short acting) 12.5 mg tab(s) (LOPRESSOR) 12.5 mg ORAL q 8 H polyethylene glycol 3350 17 g packet 17 g ORAL DAILY piperacillin-tazobactam iv piggyback 3.375 g in dextrose (iso-osmotic) 50 mL (ZOSYN) 3.375 g INTRAVENOUS q 6 H folic acid 1 mg tab(s) 1 mg ORAL DAILY enoxaparin 30 mg injection (LOVENOX) 30 mg SUBCUTANEOUS q 12 HR lidocaine 4 % 2 patch (SALONPAS) 2 patch TRANSDERMAL DAILY And lidocaine patch - REMOVE OTHER AT BEDTIME And lidocaine - VERIFY PATCH OTHER q 8 H ipratropium-albuterol 3 mL nebulizer solution (DUONEB) 3 mL INHALATION q 6 H PRN acetaminophen 1,000 mg tab(s) (TYLENOL) 1,000 mg ORAL q 8 H senna-docusate 8.6-50 mg 1 tablet (SENNA-S) 1 tablet ORAL BID budesonide, enteric coated 9 mg cap(s) (ENTOCORT EC) 9 mg ORAL DAILY cetirizine 10 mg tab(s) (ZYRTEC) 10 mg ORAL DAILY rosuvastatin 10 mg tab(s) (CRESTOR) 10 mg ORAL AT BEDTIME NaCl 0.9% iv flush bag 20 mL INTRAVENOUS PRN ondansetron 4 mg tab(s) (ZOFRAN) 4 mg ORAL q 6 H PRN Or ondansetron (PF) 4 mg injection (ZOFRAN) 4 mg INTRAVENOUS q 6 H PRN oxyCODONE IR 2.5-5 mg tab(s) (ROXICODONE) 2.5-5 mg ORAL q 4 H PRN thiamine 100 mg tab(s) (VITAMIN B1) 100 mg ORAL/FEEDING TUBE TID Labs: Recent Labs 12/31/24 0411 12/30/24 0336 12/28/24 1820 12/28/24 1700 NA 142 137 < > -- K 3.2* 4.0 < > -- CHLOR 105 109* < > -- CO2 23 20* < > -- BUN 12 17 < > -- CREAT 0.80 0.80 < > -- GLUC 93 84 < > -- ANION 14 8 < > -- CA 7.6* 7.4* < > -- WBC 5.07 5.59 < > -- HB 10.4* 10.2* < > -- HCT 31.3* 31.9* < > -- PLT 118* 101* < > -- LACT -- -- -- 0.9 PH -- -- -- 7.51* PCO2 -- -- -- 29* PO2 -- -- -- 65* BE -- -- -- 1 HCO3 -- -- -- 23 < > = values in this interval not displayed. PHYSICAL EXAM: Genl: Appears age appropriate. No acute distress. Resting comfortably. Head/Face: Normocephalic. Atraumatic. Eyes: EOMI. Sclera not icteric, not injected Resp: Lung sounds are clear bilat. No wheezes. No rales. Breathing is non-labored on RA @98%. Left chest tube to WS. (-) air leak. Sanguinous drainage in tubing. CVS: RRR as above; 2+ pulses at RA, DP, PT bilat. GI: Abdomen is soft, non-tender, not distended. Bowel sounds normoactive. No peritonitis. : [place] draining clear yellow urine. MSK: Extremities without clubbing, cyanosis, edema. Normal ROM x 4. Skin: Warm and dry. Not jaundiced. Neuro: AANDOx3. Strength and sensation normal. BRAGA. Psych: Drowsy, slow to respond. ASSESSMENT AND PLAN: Assessment Active Hospital Problems Diagnosis Date Noted Pneumothorax 12/26/2024 At risk for delirium 12/31/2024 Acute cystitis without hematuria 12/31/2024 Acute urinary retention 12/31/2024 Hypokalemia 12/31/2024 Hyponatremia 12/31/2024 Posttraumatic respiratory insufficiency 12/27/2024 Fall 12/26/2024 Closed fracture of multiple ribs of left side 12/26/2024 Hemopneumothorax on left 12/26/2024 Alcohol use 12/26/2024 Type 2 diabetes (HCC) 12/26/2024 Chronic IBS (irritable bowel syndrome) 12/26/2024 Chronic History of stroke 2013 Chronic History of cholecystectomy 2008 Chronic Assessment: 79 year old female s/p multiple GLF, +ETOH. Transferred from [place] ED. Imaging performed: CT HNCAP (12/26) @ [place] CXR, XR L elbow/forearm (12/26) CXR x2 (12/27) CXR x3, CTA chest, CT abd/pel (12/28) CXR (12/29) CXR (12/30) CXR (12/31) Traumatic Injuries: Left 6-9 rib fractures with associated hemopneumothorax and subcutaneous emphysema Left elbow contusion with small skin tear Operations/Procedures: 1. 12/27/2024 - Left chest tube placed 2. 12/28/2024 - Left subclavian CVC (removed 12/30) Care Plan: Left rib fx with hemopneumo Pulmonary hygiene Continue left chest tube to WS 420ml sanguinous output in last 24h Daily CXR while chest tube in place Pain control ETOH abuse, delirium Patient reports daily wine consumption 3-4 glasses Given phenobarbital and Ativan @ [place] prior to transfer Phenobarb taper discontinued 2/2 sedation CIWA scoring Thiamine/folate replacement Social work consult Seroquel 50mg qHS PRN haldol for agitation Acute urinary retention [place] placed 12/28 Void trial 12/31 Fever, Leukocytosis, UTI, SVT WBC 5.07 from 5.58 Blood cultures NGx2d Urine culture E.Coli Zosyn x3d (end date 12/31) IV metoprolol given in SICU Continue PO metoprolol 12.5mg q8h (home regimen 12.5mg BID) Continue tele Hyponatremia Resolved Hypokalemia K 3.2 form 4.0 Replace PO Current diet order: DIET REGULAR Pain regimen: Scheduled tylenol, toradol, lido patch; prn oxycodone, robaxin Bowel regimen: Senna-s Labs: As above PPX: DVT: Lovenox, SCDs, mobilize Ulcer: n/a Vit D level if > 65 yo: 46.4 Consulted Services: SICU PT/OT Social work Dispo Planning: PT/OT recs SNF. Case management following. Incidentals: None Follow Up Needs: Trauma clinic in 1 week Staff Trauma Surgeon: Dr. Copeland SIGNATURE: Carl Tellez APRN.CNP PATIENT NAME: Cristino Verdugo DATE: 12/31/2024 TIME: 10:43 AM Pager: see below Trauma Service Pager: For questions or concerns Mon-Fri 6a-5p please page [phone]. After 5pm and on Weekends and Holidays, please page [phone] if in ICU or [phone] if on RNF. THERAPY NT Observed: 12/31/2024 9:54 AM Status: COMPLETED Source: [facility] HNO ID: [id number] Author: WASHINGTON CARDOZA OTR/L Service: Occupational Therapy Author Type: Occupational Therapist Type: Therapy (PT/OT/Speech/Resp) Filed: 12/31/2024 09:57 Note Text: Occupational Therapy Evaluation Summary SERVICE DATE: 12/31/2024 SERVICE TIME: 829 to 854 ROOM: [id number] OT 6 Clicks Score: 15 DISCHARGE RECOMMENDATIONS Subacute/SNF Recommended Discharge Disposition Comments: patient not at functional baseline. Recommended Discharge Disposition Due to: ADL impairment, Patient requires daily (5x/week) skilled therapy at next level of care., Cognitive deficits new/worsened ASSESSMENT Response to Therapy Interventions: Good Participation in Activities, Cognitive Deficits PRECAUTIONS Fall Risk, Bed/Chair Alarm CURRENT HOSPITAL COURSE Patient had a fall was transferred from [place] [address] admitted to the ICU has rib fractures on the left side hemopneumothorax emphysema chest tube Relevant Past Medical History: etoh abuse, fibro HOME LIVING Patient Lives With: Family (son) Assistance Available: Other: See Comment Comments: 2 Equipment Owned: Walker- Wheeled PRIOR FUNCTIONAL LEVEL Within Functional Limits indep at home no AD lives with son SUBJECTIVE agreeable to session COGNITION Orientation Deficits: Confused, Not oriented to Time, Not oriented to Situation Responsiveness: Alert Follows Commands: 1-step Commands, Cueing Needed Cueing to Follow Commands: Minimum Executive Function Deficits: Safety Awareness, Insight to Deficits, Sequencing, Problem Solving 4AT Score: (!) 8 (12/31/24) Delirium Positive/Negative: Positive (12/31/24) THERAPY DIAGNOSIS Reduced mobility-other, Decreased activities of daily living (ADL), Muscle Weakness (generalized), Unsteadiness on feet, General symptoms and signs-other, Signs and Symptoms Involving Cognitive Functions and Awareness TREATMENT INTERVENTIONS Evaluation, Therapeutic Activity (09910) Timed Code Treatment (minutes): 12 Skilled Treatment Time (minutes): 25 $ Evaluation - Moderate (51959) Billed Units: 1 unit Therapeutic Activity (00464) Treatment Minutes: 12 $ Therapeutic Activity (14790) Billed Units: 1 unit TRAINING AND EDUCATION PROVIDED Assistive Device Use, Bed Mobility, Cognitive Stimulation Activities, Command Following, Cognitive Skills, Delirium Reduction Techniques, Disease Specific Education, Discharge Planning, Energy Conservation, Functional Mobility Involving ADLs, Role of Occupational Therapy, Safety/Judgment, Sitting Balance to Improve [place] with ADLs/Self-Care, Standing Balance to Improve [place] with ADLs/Self-Care, Transfer - Bed to Chair, Transfer - Sit to Stand, Transfer - Toilet/Commode THERAPEUTIC SKILLS USED Activity Dosing, Cues for Sequencing/Proper Technique for Activity, Cuing Tactile, Cuing Verbal, Cuing Visual, Physical Assist FUNCTIONAL STATUS Activities of Daily Living Assist Level Additional Information Feeding Set Up Grooming Contact Guard Assistance Bathing Upper Body Minimal Assistance Bathing Lower Body Maximal Assistance Dressing Upper Body Minimal Assistance Dressing Lower Body Maximal Assistance Toileting Moderate Assistance Mobility Assist Level Additional Information Bed Mobility Supine To Sit: Moderate Assistance [id number] verbal direction to move each lower extremity closer to side of bed while engaging core in order to sit upright at side of bed. Sit to Stand Minimal Assistance Max cues for hand placement when standing, as patient wants to pull on walker frame. Stand to Sit Minimal Assistance Mild direction for good eccentric control. Bed to Chair Toilet/Commode Minimal Assistance [id number] verbal direction for hand and body placement when sitting and standing from bedside commode. Shower Functional Mobility Minimal Assistance, Additional Information Functional Mobility Device: Wheeled Walker functional mobility to door, then to commode, then to chair. Requires increased time, non-functional pace, difficult with turns. Unsteady on feet. Educated on walker management and fall prevention during dynamic mobility. Instructed patient on the benefit and value of receiving continued OT services at d/c to increase independence with self care and functional transfers. STRENGTH Right Upper Extremity Strength Comments: 4-/5 Left Upper Extremity Strength Comments: 4-/5 BALANCE Static Standing Balance: Fair Dynamic Standing Balance: Fair GOALS Grooming with: Set Up Upper Body Bathing with: Stand By Assistance Upper Body Dressing with: Stand By Assistance Lower Body Bathing with: Contact Guard Assistance Lower Body Dressing with: Contact Guard Assistance Toilet Hygiene with: Supervision Chair Transfer with: Supervision Toilet Transfer with: Supervision Tolerate (minutes of functional activity): 30 Functional Activity with: Supervision Demonstrate Competence with Education with: Supervision (safety, fall prevention) Increased Awareness of Cognitive Impairments as Related to ADL's/IADL's: Verbalized, Demonstrated Rehab Potential: Good Good Rehab Potential Due To: Good motivation ACUTE CARE TREATMENT PLAN OT Frequency: 2 Times Per Week Treatment Interventions: Education, Self Care/Home Management, Energy Conservation Training, Strengthening, Functional Mobility Training, Balance Training, Cognitive Training Plan for Next Visit: Bathing Training, Dressing Training SIGNATURE: Washington Cardoza OTR/L PATIENT NAME: Cristino Verdugo DATE: December 31, 2024 TIME: 9:54 AM PROGRESS Observed: 12/31/2024 8:20 AM Status: COMPLETED Source: [facility] HNO ID: [id number] Author: GIULIA COPELAND MD Service: General Surgery Author Type: Physician Type: Progress Notes Filed: 12/31/2024 08:21 Note Text: Documentation Query Please clarify diagnosis associated with the clinical indicators Acute hypoxic respiratory failure Please clarify the Present on Admission status for the diagnosis above Present on Admission This document will become part of the patient's medical record. PROGRESS Observed: 12/31/2024 8:19 AM Status: COMPLETED Source: [facility] HNO ID: [id number] Author: GIULIA COPELAND MD Service: General Surgery Author Type: Physician Type: Progress Notes Filed: 12/31/2024 08:20 Note Text: Documentation Query Please clarify the diagnosis associated with the clinical indicators Thrombocytopenia Please clarify the Present on Admission status for the diagnosis above Present on Admission This document will become part of the patient's medical record. XR CHEST 1V FRONTAL Observed: 12/31/2024 7:21 AM Status: F Source: [facility] * * *Final Report* * * DATE OF EXAM: Dec 31 2024 7:21AM AKX [id number] - XR CHEST 1V FRONTAL / PROCEDURE REASON: Evaluate tube, line, or lead position * * * * Physician Interpretation * * * * EXAMINATION: CHEST RADIOGRAPH (SINGLE VIEW AP OR PA) CLINICAL HISTORY: Evaluate tube, line, or lead position MQ: XC1_5 Comparison: Chest radiograph 12/30/2024 RESULT: Lines, tubes, and devices: Left chest tube is in similar position. Left subclavian line has been removed. Lungs and pleura: No large pneumothorax. Small right pleural effusion again seen. Decreased left basilar opacities. Cardiomediastinal silhouette: Normal cardiomediastinal silhouette. IMPRESSION: Decreased left basilar opacities. Cloud Subject Matter Expert: ANA Transcribe Date/Time: Dec 31 2024 7:40A Dictated by : KEVIN NORRIS MD This examination was interpreted and the report reviewed and electronically signed by: KEVIN NORRIS MD on Dec 31 2024 7:41AM EST [id number] CBC PNL BLD AUTO Collected: 12/31/2024 4:11 AM Statu s: F Source: [facility] Order Comment: Specimen Type : BLOOD SPECIMEN Ordering Facility: [facility] Address: [address] [place] [address] TYPE CODE TESTS RESULT OUT OF RANGE REFERENCE UNITS LAB 6690-2(LOINC) WBC # Bld Auto 5.07 3.70-11.00 k/uL LAB 789-8(LOINC) RBC # Bld Auto 2.94 Low 3.90-5.20 m/ uL LAB 718-7(LOINC) Hgb Bld-mCnc 10.4 Low 11.5-15.5 g/dL LAB 4544-3(LOINC) Hct VFr Bld Auto 31.3 Low 36.0-46.0 % LAB 787-2(LOINC) MCV RBC Auto 106.5 High 80.0-100.0 fL LAB 785-6(LOINC) MCH RBC Qn Auto 35.4 High 26.0-34.0 pg LAB 786-4(LOINC) MCHC RBC Auto-mCnc 33.2 30.5-36.0 g/dL LAB 46825-6(LOINC) RDW RBC-Rto 12.9 11.5-15.0 % LAB 777-3(INC) Platelet # Bld Auto 118 Low 150-400 k/uL LAB 40766-5([facility]) PMV Bld Auto 10.7 9.0-12.7 fL LAB 771-6([facility]) nRBC # Bld Auto <0.01 <0.01 k/uL Performed By: #### [id number] # ### [facility] CLIA [id number] [address] [place] [address] [place] BAS METAB 1999 PNL SERPL Collected: 4:11 AM Status: F Source: [facility] Order Comment: Specimen Type : BLOOD SPECIMEN Ordering Facility: [facility] Address: [address] [place] [address] TYPE CODE TESTS RESULT OUT OF RANGE REFERENCE UNITS LAB 2345-7(INC) Glucose SerPl-mCnc 93 74-99 mg/dL Result Comment: The [place] Diabetes Association (ADA) provides guidance for cutoff values for fasting glucose and random glucose. The ADA defines fasting as no caloric intake for at least 8 hours. Fasting plasma glucose results between 100 to 125 mg/dL indicate increased risk for diabetes (prediabetes). Fasting plasma glucose results greater than or equal to 126 mg/dL meet the criteria for diagnosis of diabetes. In the absence of unequivocal hyperglycemia, results should be confirmed by repeat testing. In a patient with classic symptoms of hyperglycemia or hyperglycemic crisis, random plasma glucose results greater than or equal to 200 mg/dL meet the criteria for diagnosis of diabetes. Reference: Standards of Medical Care in Diabetes 2016, [place] Diabetes Association. Diabetes Care. 2016.39(Suppl 1). LAB 3094-0(LOINC) BUN SerPl-mCnc 12 7-21 mg/dL LAB 2160-0(LOINC) Creat SerPl-mCnc 0.80 0.58-0.96 mg/dL LAB 2951-2(LOINC) Sodium SerPl-sCnc 142 136-144 mmol/L LAB 2823-3(LOINC) Potassium SerPl-sCnc 3.2 Low 3.7-5.1 mmol/L LAB 2075-0(LOINC) Chloride SerPl-sCnc 105 98-107 mmol/L LAB 2028-9(LOINC) CO2 SerPl-sCnc 23 22-30 mmol/L LAB 1863-0(LOINC) Anion Gap4 SerPl-sCnc 14 8-15 mmol/L LAB 96355-1(LOINC) Calcium SerPl-mCnc 7.6 Low 8.5-10.2 mg/dL LAB 62648-5(LOINC) eGFRcr SerPlBld CKD-EPI 2020 76 >=60 mL/min/1. 73m??? Result Comment: Estimated Gl omerular Filtration Rate (eGFR) is calculated using the 2020 CKD-EPI creatinine equation. This equation utilizes serum creatinine, sex, and age as parameters. The creatinine assay has traceable calibration to isotope dilution-mass spectrometry. Refer to KDIGO guidelines for clinical interpretation. In patients with unstable renal function, e.g. those with acute kidney injury, the eGFR may not accurately reflect actual GFR. Performed By: #### 86102-2 # ### [facility] CLIA [id number] [address] NURSING PROG Observed: 12/30/2024 1:23 PM Status: COMPLETED Source: [facility] HNO ID: [id number] Author: BENJAMIN BULLARD RN Service: Nursing Author Type: Registered Nurse Type: Nursing Progress Note Filed: 12/30/2024 13:24 Note Text: Other: patient transferred to [facility] on tele with no complications. Nurse tech putting patient on telemetry while I was there and handoff given to new RN at bedside. NURSING PROG Observed: 12/30/2024 1:04 PM Status: COMPLETED Source: [facility] HNO ID: [id number] Author: BENJAMIN BULLARD RN Service: Nursing Author Type: Registered Nurse Type: Nursing Progress Note Filed: 12/30/2024 13:04 Note Text: Other: at 1229 patients heart rate up to 130's sustained. Dr cordon notified who came to room to assess. One time dose of lopressor given and patients heart rate back down to 70's NSR. Per dr cordon patient ok to be transferred at this time. NURSING PROG Observed: 12/30/2024 11:54 AM Status: COMPLETED Source: [facility] HNO ID: [id number] Author: BENJAMIN BULLARD, BELEN Service: Nursing Author Type: Registered Nurse Type: Nursing Progress Note Filed: 12/30/2024 11:54 Note Text: Other: patient notified of transfer order and new room number. We have called patients TOM Cunha multiple times but no answer at either number provided. Messages left. Report called to [phone] and this was passed on. PROGRESS Observed: 12/30/2024 8:54 AM Status: COMPLETED Source: [facility] HNO ID: [id number] Author: GIULIA COPELAND MD Service: General Surgery Author Type: Physician Type: Progress Notes Filed: 12/30/2024 11:44 Note Text: Trauma Surgery Progress Note SERVICE DATE: 12/30/2024 Trauma Service Pager: For questions or concerns Mon-Fri 6a-5p please page [phone]. After 5pm and on Weekends and Holidays, please page [phone] if in ICU or [phone] if on RNF. SUBJECTIVE: Per nursing patient agitated overnight, with soft blood pressure measurements requiring IV bolus infusions, which improved readings, this morning patient alert and oriented x 3, chest output minimal not recorded from 160 cc yesterday remains serosanguineous OBJECTIVE: Vitals: Temp (24hrs), Av.7 ?C (98 ?F), Min:35.8 ?C (96.4 ?F), Max:37.1 ?C (98.8 ?F) BP 122/66 Pulse 103 Temp 36.8 ?C (98.2 ?F) (Oral) Resp 14 Ht 156.2 cm (5' 1.5") Wt 57 kg (125 lb 10.6 oz) SpO2 96% BMI 23.36 kg/m? O2 Therapy: Room Air IANDO: Date 12/29/24699 - 12/30/24 0659 12/30/24699 - 12/31/24 0659 Shift 9289-4469 5566-0112 9154-5798 24 Hour Total 8983-4978 9100-5698 4611-5418 24 Hour Total INTAKE PO 150 150 PO 150 150 IV 1261 50 1311 1259 1259 Volume (mL) (lactated ringers 500 mL iv bolus) 500 500 Volume (mL) (piperacillin-tazobactam iv piggyback 3.375 g in dextrose (iso-osmotic) 50 mL (ZOSYN)) 50 50 100 50 50 Volume (mL) (potassium chloride iv piggyback 20 mEq/100 mL) 100 100 Volume (mL) (NaCl 0.9% iv infusion) 611 611 Volume (mL) (lactated ringers iv infusion) 1209 1209 Shift Total 1411 50 1461 1259 1259 OUTPUT Urine 280 185 450 915 75 75 Output ( Indwelling Urinary Catheter 12/28/24 1829 [facility] [place]) 280 185 450 915 75 75 Chest Tube 30 0 130 160 0 0 Chest Tube Output (Chest Tube 12/26/24 2130 Left Lateral Tube #1) 30 0 130 160 0 0 # of BMs Stool Incontinence 1 x 1 x Number of BMs 1 x 1 x Shift Total 310 232 134 2224 75 75 Weight (kg) 57 57 57 57 57 57 57 57 MEDICATIONS: Current Facility-Administered Medications Medication Dose Route Frequency potassium chloride ER 20-40 mEq tab(s) (KLOR-CON) 20-40 mEq ORAL/FEEDING TUBE PRN Or potassium chloride iv piggyback 20 mEq/100 mL 20 mEq INTRAVENOUS PRN magnesium sulfate iv piggyback in sterile water 2 g 50 mL 2 g INTRAVENOUS PRN calcium gluconate iv piggyback 2 g in NaCl (iso-osmotic) 100 mL 2 g INTRAVENOUS PRN(NO DISPENSE) metoprolol 5 mg injection (LOPRESSOR) 5 mg INTRAVENOUS q 6 HR lactated ringers iv infusion 75 mL/hr INTRAVENOUS CONTINUOUS polyethylene glycol 3350 17 g packet 17 g ORAL DAILY piperacillin-tazobactam iv piggyback 3.375 g in dextrose (iso-osmotic) 50 mL (ZOSYN) 3.375 g INTRAVENOUS q 6 H iv contrast (radiology procedure) INTRAVENOUS DIRECTED PRN folic acid 1 mg tab(s) 1 mg ORAL DAILY PHENobarbital 32.4 mg tab(s) 32.4 mg ORAL/FEEDING TUBE q 24 H enoxaparin 30 mg injection (LOVENOX) 30 mg SUBCUTANEOUS q 12 HR lidocaine 4 % 2 patch (SALONPAS) 2 patch TRANSDERMAL DAILY And lidocaine patch - REMOVE OTHER AT BEDTIME And lidocaine - VERIFY PATCH OTHER q 8 H ipratropium-albuterol 3 mL nebulizer solution (DUONEB) 3 mL INHALATION q 6 H PRN acetaminophen 1,000 mg tab(s) (TYLENOL) 1,000 mg ORAL q 8 H phosphorus 250 mg tab(s) (K PHOS NEUTRAL) 250 mg ORAL PC and HS senna-docusate 8.6-50 mg 1 tablet (SENNA-S) 1 tablet ORAL BID haloperidol lactate 2 mg short-acting injection (HALDOL) 2 mg INTRAVENOUS q 6 H PRN budesonide, enteric coated 9 mg cap(s) (ENTOCORT EC) 9 mg ORAL DAILY cetirizine 10 mg tab(s) (ZYRTEC) 10 mg ORAL DAILY metoprolol tartrate (short acting) 12.5 mg tab(s) (LOPRESSOR) 12.5 mg ORAL q 12 H rosuvastatin 10 mg tab(s) (CRESTOR) 10 mg ORAL AT BEDTIME gabapentin 200 mg cap(s) (NEURONTIN) 200 mg ORAL q 8 H NaCl 0.9% iv flush bag 20 mL INTRAVENOUS PRN ondansetron 4 mg tab(s) (ZOFRAN) 4 mg ORAL q 6 H PRN Or ondansetron (PF) 4 mg injection (ZOFRAN) 4 mg INTRAVENOUS q 6 H PRN oxyCODONE IR 2.5-5 mg tab(s) (ROXICODONE) 2.5-5 mg ORAL q 4 H PRN thiamine 100 mg tab(s) (VITAMIN B1) 100 mg ORAL/FEEDING TUBE TID Labs: Recent Labs 12/30/24 0336 12/29/24 0256 12/28/24 1820 12/28/24 1700 12/28/24 1301 12/28/24 0258 NA 137 135* < > -- < > 130* K 4.0 3.4* < > -- -- 4.4 CHLOR 109* 105 < > -- < > 101 CO2 20* 21* < > -- < > 21* BUN 17 19 < > -- < > 25* CREAT 0.80 0.86 < > -- < > 0.80 GLUC 84 113* < > -- < > 135* ANION 8 9 < > -- < > 8 CA 7.4* 7.3* < > -- < > 8.4* MG -- -- -- -- -- 2.7* P -- -- -- -- -- 3.9 WBC 5.59 3.02* < > -- -- 11.93* HB 10.2* 9.8* < > -- -- 13.2 HCT 31.9* 29.8* < > -- -- 38.9 PLT 101* 96* < > -- -- 157 LACT -- -- -- 0.9 -- -- PH -- -- -- 7.51* -- -- PCO2 -- -- -- 29* -- -- PO2 -- -- -- 65* -- -- BE -- -- -- 1 -- -- HCO3 -- -- -- 23 -- -- < > = values in this interval not displayed. PHYSICAL EXAM: GENERAL: Alert. No distress. Resting comfortably. NEURO: AANDOx3. No focal neurologic deficits. Sensation grossly intact. HEENT: Normocephalic. Atraumatic. EOMI. LUNGS: Unlabored breathing. Equal excursion bilaterally. CARDIAC: Regular rate. Good perfusion throughout. ABDOMEN: Soft, non-tender, non-distended. No rebound or guarding. EXTREMITIES: BRAGA. No deformities. SKIN: No obvious jaundice or pallor. ASSESSMENT AND PLAN: Assessment Active Hospital Problems Diagnosis Date Noted Pneumothorax 12/26/2024 Posttraumatic respiratory insufficiency 12/27/2024 Fall 12/26/2024 Closed fracture of multiple ribs of left side 12/26/2024 Hemopneumothorax on left 12/26/2024 Alcohol use 12/26/2024 Type 2 diabetes (HCC) 12/26/2024 Chronic IBS (irritable bowel syndrome) 12/26/2024 Chronic History of stroke 2013 Chronic History of cholecystectomy 2009 Chronic 79 year old female s/p reported GLF @ home on 12/26/2024 with history of ETOH abuse (possibly on ASA and/or Plavix) Imaging performed: - 12/26/2024 - CT HNCAP @ [place], CXR @ [facility] Traumatic Injuries: - Left 6-9 rib fractures with associated hemopneumothorax and subcutaneous emphysema Hospital Course: - 12/26- Serratus block and L CT placement Care Plan: Multiple left rib fractures, hemopneumothorax, subQ emphysema -Left chest tube placed on 12/26, no air leak, output serosanguineous - zero from 170 continue monitoring output -Daily chest x-ray stable -Multimodal pain control -Hold anticoagulation, home Plavix H/O ETOH abuse -Alcohol use, daily 1 consumption, on admission EtOH less than 11 -CIWA protocol, thiamine supplementation, phenobarb taper -Social work consult Hyponatremia -Sodium 137 from 136 this morning, at goal -Continue monitor for any symptoms, at this time asymptomatic Leukocytosis -White blood count 5.59 from 3.02 continue monitor for signs of infections -monitoring currently afebrile no signs of obvious infection -regular diet tolerating well -pain regimen as ordered - RNF for floor PPX: - DVT: LVX - Ulcer: n/a - Vit D level if > 65 yo: WNL on admission Consulted Services: - trauma, sicu Dispo Planning: - PT/OT recs when able. Case management following. Incidentals: - n/a Assessment and plan d/w Dr. Copeland. SIGNATURE: Ca Vallejo DO PATIENT NAME: Cristino Verdugo DATE: 12/30/2024 TIME: 8:54 AM Pager: see below Trauma Service Pager: For questions or concerns Mon-Fri 6a-5p please page [phone]. After 5pm and on Weekends and Holidays, please page [phone] if in ICU or [phone] if on RNF. Attending Note I personally saw and examined the patient. I reviewed the resident's note. I agree with the resident's assessment and plan unless otherwise noted. Signature: Giulia Copeland MD Date: 12/30/2024 Time: 11:44 AM PROGRESS Observed: 12/30/2024 7:17 AM Status: COMPLETED Source: [facility] HNO ID: [id number] Author: BRUNO BLANC MD Service: General Surgery Author Type: Resident Type: Progress Notes Filed: 12/30/2024 11:35 Note Text: Attestation signed by Bruno Blanc MD at 12/30/2024 11:35 AM (Updated) Surgical Critical Care Addendum/Attestation: I evaluated Cristino Verdugo on 12/30/2024. I provided 35 minutes of critical care services which were necessary due to above specified injuries and illnesses. This patient has a high probability of sudden, clinical significant deterioration, which required the highest level of care and preparedness to intervene urgently. I managed and supervised life or organ supporting interventions that require frequent assessments. This time does not include time devoted to teaching and to any procedure I billed separately. I have personally seen and examined this patient and participated in the robbins components of this encounter with the multi-disciplinary ICU team. I discussed the management of this case with the resident and reviewed/confirmed their documentation, attached or in separate note. I personally reviewed today's actual images, the associated image reports, and current labs. I supervised the ordering of additional testing, imaging, labs, and/or consultations. The patient and/or family were fully informed of the findings and plan of care. They had the opportunity to ask questions and raise any issues of concern, all of which were answered and dealt with by me to their stated satisfaction. The critical care treatment was mainly directed to address the following issues: Active Hospital Problems Diagnosis Date Noted Pneumothorax 12/26/2024 Posttraumatic respiratory insufficiency 12/27/2024 Fall 12/26/2024 Closed fracture of multiple ribs of left side 12/26/2024 Hemopneumothorax on left 12/26/2024 Alcohol use 12/26/2024 Type 2 diabetes (HCC) 12/26/2024 Chronic IBS (irritable bowel syndrome) 12/26/2024 Chronic History of stroke 2013 Chronic History of cholecystectomy 2008 Chronic Hypotension overnight which responded to fluid boluses maintenance fluid added back Multimodal pain control ordered. Patient reporting additional pain adding scheduled Toradol and Robaxin Encourage p.o. intake via continue regular diet passed bedside swallow evaluation. Bowel regimen Continue scheduled oral metoprolol with hold parameters DC IV breakthrough metoprolol No additional phenobarb at this time. Continue CIWA monitoring. Seroquel QHS. Aggressive pulm toilet. Chest tube to water seal. HLIV this afternoon. Stop abx tomorrow afternoon if cultures remain negative. V[place]la for urinary retention. Now has PIV x2. D/c CVC. ICU Checklist Last Documented/Reviewed time: 12/30/2024 11:35 AM ICU Consent Complete?: Yes ICU Code Status "History assess/Full code by default: No, active code status present A= Assess, Prevent, Manage Pain Pain adequately controlled?: No (Comment: added robaxin and tolradol) C= Choice of Sedation and Analgesia RASS at Goal?: Yes B= Both Spontaneous Awakening and Breathing Trials Ventilator: None D= Delirium: Assess, Prevent and Manage ICU Delirium Status: CAM Positive - existing, continue interventions (Comment: prn haldol) Sleep adequate?: Yes Restraint Status: None E= Early Mobility/Excercise ICU Mobility: ICU Mobility Goal: PT/OT consult ordered, Sit at edge of bed, Move to chair, Head of bed 60 degrees, Stand F= Family Engagement and Empowerment ICU plan of care visit at bedside in last 24 hours: Yes, Provider, RN, Patient/ designee ICU Disposition: ICU Disposition-POC Detail: To be determined Prevention: Line Status: Central multi-lumen catheter Central Line Status: Able to remove today Villela Status: Present, still need today Pressure Injury Status: None GI/Stress Ulcer Prophylaxis: None - not required Nutrition is at Goal: Yes VTE Prophylaxis: Chemoprophylaxis: Low Molecular Wt Heparin Management included sedation, pain control and ventilation assessment including need for ventilator, weaning and/or extubation as indicated. Management of critical care illnesses are edited above by me, including system by system plan and are not only limited to infectious disease and tailoring the antibiotic therapy, nutrition assessment and supplementation, electrolyte correction and prevention of ICU related complications using ventilator bundle, sedation holiday and assessment and removal of lines and tubes where indicated. Bruno Blanc MD INPATIENT SICU PROGRESS NOTE SERVICE DATE: 12/30/2024 SERVICE TIME: 7:17 AM Subjective Patient seen and examined this morning, states that she is having pain on the left side, but denies abd pain and nausea. Had a BM 12/29, states is passing gas. Current Facility-Administered Medications Medication Dose Route Frequency NaCl 0.9% iv flush bag 20 mL INTRAVENOUS PRN ondansetron 4 mg tab(s) (ZOFRAN) 4 mg ORAL q 6 H PRN Or ondansetron (PF) 4 mg injection (ZOFRAN) 4 mg INTRAVENOUS q 6 H PRN oxyCODONE IR 2.5-5 mg tab(s) (ROXICODONE) 2.5-5 mg ORAL q 4 H PRN thiamine 100 mg tab(s) (VITAMIN B1) 100 mg ORAL/FEEDING TUBE TID folic acid 1 mg tab(s) 1 mg ORAL DAILY PHENobarbital 32.4 mg tab(s) 32.4 mg ORAL/FEEDING TUBE q 24 H enoxaparin 30 mg injection (LOVENOX) 30 mg SUBCUTANEOUS q 12 HR lidocaine 4 % 2 patch (SALONPAS) 2 patch TRANSDERMAL DAILY And lidocaine patch - REMOVE OTHER AT BEDTIME And lidocaine - VERIFY PATCH OTHER q 8 H ipratropium-albuterol 3 mL nebulizer solution (DUONEB) 3 mL INHALATION q 6 H PRN acetaminophen 1,000 mg tab(s) (TYLENOL) 1,000 mg ORAL q 8 H phosphorus 250 mg tab(s) (K PHOS NEUTRAL) 250 mg ORAL PC and HS senna-docusate 8.6-50 mg 1 tablet (SENNA-S) 1 tablet ORAL BID haloperidol lactate 2 mg short-acting injection (HALDOL) 2 mg INTRAVENOUS q 6 H PRN budesonide, enteric coated 9 mg cap(s) (ENTOCORT EC) 9 mg ORAL DAILY cetirizine 10 mg tab(s) (ZYRTEC) 10 mg ORAL DAILY metoprolol tartrate (short acting) 12.5 mg tab(s) (LOPRESSOR) 12.5 mg ORAL q 12 H rosuvastatin 10 mg tab(s) (CRESTOR) 10 mg ORAL AT BEDTIME gabapentin 200 mg cap(s) (NEURONTIN) 200 mg ORAL q 8 H polyethylene glycol 3350 17 g packet 17 g ORAL DAILY piperacillin-tazobactam iv piggyback 3.375 g in dextrose (iso-osmotic) 50 mL (ZOSYN) 3.375 g INTRAVENOUS q 6 H iv contrast (radiology procedure) INTRAVENOUS DIRECTED PRN potassium chloride ER 20-40 mEq tab(s) (KLOR-CON) 20-40 mEq ORAL/FEEDING TUBE PRN Or potassium chloride iv piggyback 20 mEq/100 mL 20 mEq INTRAVENOUS PRN magnesium sulfate iv piggyback in sterile water 2 g 50 mL 2 g INTRAVENOUS PRN calcium gluconate iv piggyback 2 g in NaCl (iso-osmotic) 100 mL 2 g INTRAVENOUS PRN(NO DISPENSE) metoprolol 5 mg injection (LOPRESSOR) 5 mg INTRAVENOUS q 6 HR lactated ringers iv infusion 75 mL/hr INTRAVENOUS CONTINUOUS Objective VITAL SIGNS BP 113/86 Pulse 92 Temp (Src) 96.4 (Axillary) Resp 12 Ht 5' 1.496" (1.56m) Wt 125 lb 10.6 oz (57.0kg) SpO2 97% BMI 23.36 kg/(m2). O2 Therapy: Room Air Temp (24hrs), Av.9 ?C (98.4 ?F), Min:35.8 ?C (96.4 ?F), Max:37.5 ?C (99.5 ?F) Date 12/29/24699 - 12/30/24 0612/30/24699 - 12/31/24 0659 Shift 2212-2839 2640-4032 8318-5537 24 Hour Total 1420-4884 4861-3923 8383-6392 24 Hour Total INTAKE PO 150 150 PO 150 150 IV 1261 50 1311 Volume (mL) (lactated ringers 500 mL iv bolus) 500 500 Volume (mL) (piperacillin-tazobactam iv piggyback 3.375 g in dextrose (iso-osmotic) 50 mL (ZOSYN)) 50 50 100 Volume (mL) (potassium chloride iv piggyback 20 mEq/100 mL) 100 100 Volume (mL) (NaCl 0.9% iv infusion) 611 611 Shift Total 1411 50 1461 OUTPUT Urine 280 185 465 Output ( Indwelling Urinary Catheter 12/28/24 1829 [facility] [place]) 280 185 465 Chest Tube 30 0 30 Chest Tube Output (Chest Tube 12/26/24 2130 Left Lateral Tube #1) 30 0 30 # of BMs Stool Incontinence 1 x 1 x Number of BMs 1 x 1 x Shift Total 310 185 495 Weight (kg) 57 57 57 57 57 57 57 57 PHYSICAL EXAM: GENERAL: Alert. Reports left sided abd pain at ribs. Resting uncomfortably. NEURO: AANDOx3. No focal neurologic deficits. Sensation grossly intact. HEENT: Normocephalic. Atraumatic. EOMI. Left subclavian CVC. LUNGS: Unlabored breathing. Equal excursion bilaterally. Chest tube in place with an output of 30 sanguineous fluid. No air leak appreciated. CARDIAC: Tachycardic, on tele, Good perfusion throughout. ABDOMEN: Soft, non-tender, non-distended. No rebound or guarding. EXTREMITIES: BRAGA. No deformities. Peripheral lines in place upper extremities. SKIN: No obvious jaundice or pallor. DATA: Diagnostic tests reviewed for today's visit: Recent Labs 12/28/24 1700 PH 7.51* PCO2 29* PO2 65* BE 1 HCO3 23 O2HB 93* COHB 1.2 MHGB 0.7 PHTC 7.49* PCO2T 30* PO2T 70* Recent Labs 12/30/24 0336 12/29/24 0256 12/28/24 1820 12/28/24 1700 12/28/24 1301 12/28/24 0258 CREAT 0.80 0.86 0.72 -- 0.93 0.80 BUN 17 19 20 -- 25* 25* NA 137 135* 136 -- 132* 130* K 4.0 3.4* 3.7 -- -- 4.4 CHLOR 109* 105 102 -- 99 101 CO2 20* 21* 21* -- 22 21* ANION 8 9 13 -- 11 8 GLUC 84 113* 109* -- 158* 135* CA 7.4* 7.3* 8.3* -- 8.4* 8.4* P -- -- -- -- -- 3.9 MG -- -- -- -- -- 2.7* WBC 5.59 3.02* 4.51 -- -- 11.93* HB 10.2* 9.8* 11.6 -- -- 13.2 HCT 31.9* 29.8* 34.3* -- -- 38.9 PLT 101* 96* 100* -- -- 157 LACT -- -- -- 0.9 -- -- Assessment AND Plan ACTIVE PROBLEM LIST Fall Closed Fracture of Multiple Ribs of Left Side Hemopneumothorax On Left Alcohol Use Pneumothorax Fibromyalgia Type 2 Diabetes (Hcc) History of Stroke History of Cholecystectomy Ibs (Irritable Bowel Syndrome) Posttraumatic Respiratory Insufficiency Assessment 79 year old female with limited PMH for review, reported alcohol abuse, GERD, HTN, IBS and possible aspirin/Plavix use who presents to [facility] as a transfer from [place] for treatment of injuries sustained during a reported fall. Yesterday with persistent tachycardia that was SVT on EKG, febrile and leukopenia and continued left sided pain. Blood cultures pending, started zosyn, urine cultures pending, labs are WNL, CTAP with no acute findings, CTA chest negative for PE. Continuing to investigate for source of her sepsis. Blood and urine Cx NGTD. Hospital course: 12/26: transfer from [place]. Admitted to ICU 12/27: stable for RNF 12/28: septic with tachy SVT, febrile, leukopenia, zosyn, cultures, CTA chest and CTAP with no acute findings 12/29: held further phenobarb, Blood and urine Cx NGTD. Neuro: Chronic alcohol use - AANDOX3 drowsy - holding further phenobarb iso drowsiness - Haldol prn, received this AM and 12/29 PM - CIWAs - Thiamine and folic acid - pain: scheduled tylenol, lidocaine patches, PRN oxy - Gabapentin 200 mg TID - nausea prn CV: - Home Plavix held - On LVX 30 mg SubQ BID, factor Xa 12/30 0100 - On home lopressor, statin - Tele - EKG as indcated Paroxysmal SVT - metoprolol 12.5 MG q12h - IV metoprolol 5mg prn HR > 110 and SBP > 110 Resp: - 98% on O2 Therapy: 2L NC Multiple left rib fractures, hemopneumothorax, improving: - CTA chest negative for PE and demonstrates a trace left pneumo - Chest tube left chest: output 30 sanguineous. On WS this AM. - CXR this AM hazy in the bases bilaterally GI: - DIET REGULAR - Tolerating diet - Bowel Regimen: Senna, miralax - GI ppx: None - No bowel movements - procalcitonin pending Renal: - Cr: 0.86 - Urine output: 970 mL - strict Is/Os - electrolyte replacement per unit protocol Creatinine Date Value Ref Range Status 12/30/2024 0.80 0.58 - 0.96 mg/dL Final 12/29/2024 0.86 0.58 - 0.96 mg/dL Final 12/28/2024 0.72 0.58 - 0.96 mg/dL Final 12/28/2024 0.93 0.58 - 0.96 mg/dL Final Magnesium Date Value Ref Range Status 12/28/2024 2.7 (H) 1.7 - 2.3 mg/dL Final Potassium Date Value Ref Range Status 12/30/2024 4.0 3.7 - 5.1 mmol/L Final 12/29/2024 3.4 (L) 3.7 - 5.1 mmol/L Final 12/28/2024 3.7 3.7 - 5.1 mmol/L Final Intake/Output Summary (Last 24 hours) at 12/30/2024 0717 Last data filed at 12/29/2024 1735 Gross per 24 hour Intake 1461 ml Output 495 ml Net 966 ml Heme: - HGB - 10.2 from 9.8 - LVX 30 mg BID, factor Xa 12/30 0100 - transfuse for hemoglobin < 7.0 in a stable patient or for symptomatic anemia, not indicated at this time Endo: - GLU - 135 - continue blood sugar checks ID: Temp (24hrs), Av.9 ?C (98.4 ?F), Min:35.8 ?C (96.4 ?F), Max:37.5 ?C (99.5 ?F) Sepsis, unclear etiology - afebrile ovn - 12/28 CTA chest and CTAP with no acute findings - Zosyn started 12/28 - Blood cultures 12/28 NGTD - Urine cultures 12/28 NGTD - WBC - 5.59 from 3.02 - leukopenia noted 12/28 PM, improving - continue monitor for any signs of infection - Left subclavian catheter placed 12/28, attempted left IJ, unable as she was rigorous WBC Date Value Ref Range Status 12/30/2024 5.59 3.70 - 11.00 k/uL Final Ppx: - GI: None - DVT: LVX - Seizure: None Lines: Lines, Drains, and Airways Line Duration Central Line Triple Lumen 12/28/24 1900 Non-tunneled Left Chest 1 day Peripheral 12/28/24 1829 Short Left Forearm 20 Gauge 1 day Drain Duration Chest Tube 12/26/24 2130 Left Lateral Tube #1 3 days Indwelling Urinary Catheter 12/28/24 1829 [facility] [place] 1 day Consults: - trauma - SICU Dispo: - Stable for floor SICU Service Pager: For questions or concerns Mon-Fri 6a-5p please page [phone]. After 5pm and on Weekends and Holidays, please page [phone]. SIGNATURE: Antonino Cordon MD, MS4 PATIENT NAME: Cristino Verdugo DATE: 12/30/2024 TIME: 7:17 AM PAGER: above XR CHEST 1V FRONTAL Observed: 12/30/2024 5:01 AM Status: F Source: [facility] * * *Final Report* * * DATE OF EXAM: Dec 30 2024 5:01AM AKX [id number] - XR CHEST 1V FRONTAL / PROCEDURE REASON: Evaluate tube, line, or lead position * * * * Physician Interpretation * * * * EXAMINATION: CHEST RADIOGRAPH (SINGLE VIEW AP OR PA) CLINICAL HISTORY: Evaluate tube, line, or lead position MQ: [id number]_5 Comparison: 12/29/2024. RESULT: Lines, tubes, and devices: A left venous catheter and left lower chest tube remain in place. Lungs and pleura: There is hypoinflation of the lungs with atelectatic changes in both lung bases. No definite or significant pleural effusion. Cardiomediastinal silhouette: Stable cardiomediastinal silhouette. Other: The visualized bony thorax appears unremarkable. IMPRESSION: Stable exam with atelectatic changes in both lung bases. Cloud Subject Matter Expert: ANA Transcribe Date/Time: Dec 30 2024 7:30A Dictated by : REED ARAGON MD This examination was interpreted and the report reviewed and electronically signed by: REED ARAGON MD on Dec 30 2024 7:30AM EST [id number] CBC PNL BLD AUTO Collected: 12/30/2024 3:36 AM Statu s: F Source: [facility] Order Comment: Specimen Type : BLOOD SPECIMEN Ordering Facility: [facility] Address: [address] [place] [address] TYPE CODE TESTS RESULT OUT OF RANGE REFERENCE UNITS LAB 6690-2(LOINC) WBC # Bld Auto 5.59 3.70-11.00 k/uL LAB 789-8(LOINC) RBC # Bld Auto 3.02 Low 3.90-5.20 m/ uL LAB 718-7(LOINC) Hgb Bld-mCnc 10.2 Low 11.5-15.5 g/dL LAB 4544-3(LOINC) Hct VFr Bld Auto 31.9 Low 36.0-46.0 % LAB 787-2(LOINC) MCV RBC Auto 105.6 High 80.0-100.0 fL LAB 785-6(LOINC) MCH RBC Qn Auto 33.8 26.0-34.0 pg LAB 786-4(LOINC) MCHC RBC Auto-mCnc 32.0 30.5-36.0 g/dL LAB 03014-2(LOINC) RDW RBC-Rto 12.9 11.5-15.0 % LAB 777-3(LOINC) Platelet # Bld Auto 101 Low 150-400 k/uL LAB 83990-8(LOINC) PMV Bld Auto 10.2 9.0-12.7 fL LAB 771-6(LOINC) nRBC # Bld Auto <0.01 <0.01 k/uL Performed By: #### [id number] # ### [facility] CLIA [id number] [address] [facility] BAS METAB 2000 PNL SERPL Collected: 3:36 AM Status: F Source: [facility] Order Comment: Specimen Type : BLOOD SPECIMEN Ordering Facility: [facility] Address: [address] [place] [address] TYPE CODE TESTS RESULT OUT OF RANGE REFERENCE UNITS LAB 2345-7(LOINC) Glucose SerPl-mCnc 84 74-99 mg/dL Result Comment: The [place] Diabetes Association (ADA) provides guidance for cutoff values for fasting glucose and random glucose. The ADA defines fasting as no caloric intake for at least 8 hours. Fasting plasma glucose results between 100 to 125 mg/dL indicate increased risk for diabetes (prediabetes). Fasting plasma glucose results greater than or equal to 126 mg/dL meet the criteria for diagnosis of diabetes. In the absence of unequivocal hyperglycemia, results should be confirmed by repeat testing. In a patient with classic symptoms of hyperglycemia or hyperglycemic crisis, random plasma glucose results greater than or equal to 200 mg/dL meet the criteria for diagnosis of diabetes. Reference: Standards of Medical Care in Diabetes 2016, [place] Diabetes Association. Diabetes Care. 2016.39(Suppl 1). LAB 3094-0(LOINC) BUN SerPl-mCnc 17 7-21 mg/dL LAB 2160-0(LOINC) Creat SerPl-mCnc 0.80 0.58-0.96 mg/dL LAB 2951-2(LOINC) Sodium SerPl-sCnc 137 136-144 mmol/L LAB 2823-3(LOINC) Potassium SerPl-sCnc 4.0 3.7-5.1 mmol/L LAB 2075-0(LOINC) Chloride SerPl-sCnc 109 High 98-107 mmol/L LAB 2028-9(LOINC) CO2 SerPl-sCnc 20 Low 22-30 mmol/L LAB 1863-0(LOINC) Anion Gap4 SerPl-sCnc 8 8-15 mmol/L LAB 48437-9(LOINC) Calcium SerPl-mCnc 7.4 Low 8.5-10.2 mg/dL LAB 29462-3(LOINC) eGFRcr SerPlBld CKD-EPI 2020 76 >=60 mL/min/1. 73m??? Result Comment: Estimated Gl omerular Filtration Rate (eGFR) is calculated using the 2020 CKD-EPI creatinine equation. This equation utilizes serum creatinine, sex, and age as parameters. The creatinine assay has traceable calibration to isotope dilution-mass spectrometry. Refer to KDIGO guidelines for clinical interpretation. In patients with unstable renal function, e.g. those with acute kidney injury, the eGFR may not accurately reflect actual GFR. Performed By: #### [id number] # ### [facility] CLIA [id number] [address] FACT XA PPP-ACNC Collected: 1:07 AM Status: F Source: [facility] Order Comment: Specimen Type : BLOOD SPECIMEN Ordering Facility: [facility] Address: [address] [place] [address] [place] [address] TYPE CODE TESTS RESULT OUT OF RANGE REFERENCE UNITS LAB 3217-7(LOINC) Fact Xa PPP-aCnc 0.54 High <0.10 IU/mL Result Comment: The recommen ded therapeutic range for treatment of venous and arterial thrombosis with intravenous unfractionated heparin is an anti Xa activity level of 0.3 to 0.7 IU/mL. In patients with concomitant therapy with thrombolytic agents and/or platelet glycoprotein IIb/IIIa antagonists, the recommended therapeutic range is an anti Xa activity level of 0.2 to 0.5 IU/mL. Performed By: #### [id number] ## ## [facility] CLIA [id number] [address] PROGRESS Observed: 12/29/2024 9:12 AM Status: COMPLETED Source: [facility] HNO ID: [id number] Author: BRUNO BLANC MD Service: General Surgery Author Type: Resident Type: Progress Notes Filed: 12/30/2024 10:40 Note Text: Attestation signed by Bruno Blanc MD at 12/30/2024 10:40 AM Surgical Critical Care Addendum/Attestation: I evaluated Cristino Verdugo on 12/29/2024 . I provided 45 minutes of critical care services which were necessary due to above specified injuries and illnesses. This patient has a high probability of sudden, clinical significant deterioration, which required the highest level of care and preparedness to intervene urgently. I managed and supervised life or organ supporting interventions that require frequent assessments. This time does not include time devoted to teaching and to any procedure I billed separately. I have personally seen and examined this patient and participated in the robbins components of this encounter with the multi-disciplinary ICU team. I discussed the management of this case with the resident and reviewed/confirmed their documentation, attached or in separate note. I personally reviewed today's actual images, the associated image reports, and current labs. I supervised the ordering of additional testing, imaging, labs, and/or consultations. The patient and/or family were fully informed of the findings and plan of care. They had the opportunity to ask questions and raise any issues of concern, all of which were answered and dealt with by me to their stated satisfaction. The critical care treatment was mainly directed to address the following issues: Active Hospital Problems Diagnosis Date Noted Pneumothorax 12/26/2024 Posttraumatic respiratory insufficiency 12/27/2024 Fall 12/26/2024 Closed fracture of multiple ribs of left side 12/26/2024 Hemopneumothorax on left 12/26/2024 Alcohol use 12/26/2024 Type 2 diabetes (HCC) 12/26/2024 Chronic IBS (irritable bowel syndrome) 12/26/2024 Chronic History of stroke 2013 Chronic History of cholecystectomy 2008 Chronic Altered mental status, hold phenobarb doses today. Potentially restart tomorrow. PRN haldol, multi-modal pain control for chest wall trauma, continue chest tube, no air leak Hold BP medication today. Fluid bolus for low BP. Responded to bolus. Continue empiric abx for sepsis follow-up culture results. Maintain statin, hold metoprolol, Keep in ICU for fluctuating BP and mental status. ICU Checklist Last Documented/Reviewed time: 12/29/2024 5:45 PM ICU Consent Complete?: Yes ICU Code Status "History assess/Full code by default: No, active code status present A= Assess, Prevent, Manage Pain Pain adequately controlled?: Yes C= Choice of Sedation and Analgesia RASS at Goal?: Yes B= Both Spontaneous Awakening and Breathing Trials Ventilator: None D= Delirium: Assess, Prevent and Manage ICU Delirium Status: CAM Positive - existing, continue interventions Sleep adequate?: Yes Restraint Status: None E= Early Mobility/Excercise ICU Mobility: ICU Mobility Goal: PT/OT consult ordered, Sit at edge of bed, Head of bed 60 degrees F= Family Engagement and Empowerment ICU plan of care visit at bedside in last 24 hours: Yes, Provider, RN, Patient/ designee ICU Disposition: ICU Disposition-POC Detail: To be determined Prevention: Line Status: Central multi-lumen catheter Central Line Status: Still need today [place] Status: None Pressure Injury Status: None GI/Stress Ulcer Prophylaxis: None - not required Nutrition is at Goal: Yes VTE Prophylaxis: Chemoprophylaxis: Low Molecular Wt Heparin Management included sedation, pain control and ventilation assessment including need for ventilator, weaning and/or extubation as indicated. Management of critical care illnesses are edited above by me, including system by system plan and are not only limited to infectious disease and tailoring the antibiotic therapy, nutrition assessment and supplementation, electrolyte correction and prevention of ICU related complications using ventilator bundle, sedation holiday and assessment and removal of lines and tubes where indicated. Bruno Blanc MD Delayed entry INPATIENT SICU PROGRESS NOTE SERVICE DATE: 12/29/2024 SERVICE TIME: 9:12 AM Subjective Patient seen and examined this morning, states that she is not doing well due to pain on the left side of her chest. Says that she has not had a bowel movement. Denies nausea, emesis, and bloating. Pt is drowsy in setting of phenobarb taper. Current Facility-Administered Medications Medication Dose Route Frequency NaCl 0.9% iv flush bag 20 mL INTRAVENOUS PRN ondansetron 4 mg tab(s) (ZOFRAN) 4 mg ORAL q 6 H PRN Or ondansetron (PF) 4 mg injection (ZOFRAN) 4 mg INTRAVENOUS q 6 H PRN oxyCODONE IR 2.5-5 mg tab(s) (ROXICODONE) 2.5-5 mg ORAL q 4 H PRN thiamine 200 mg injection 200 mg INTRAVENOUS q 8 H Followed by thiamine 100 mg tab(s) (VITAMIN B1) 100 mg ORAL/FEEDING TUBE TID folic acid 1 mg tab(s) 1 mg ORAL DAILY PHENobarbital 32.4 mg tab(s) 32.4 mg ORAL/FEEDING TUBE q 24 H enoxaparin 30 mg injection (LOVENOX) 30 mg SUBCUTANEOUS q 12 HR lidocaine 4 % 2 patch (SALONPAS) 2 patch TRANSDERMAL DAILY And lidocaine patch - REMOVE OTHER AT BEDTIME And lidocaine - VERIFY PATCH OTHER q 8 H ipratropium-albuterol 3 mL nebulizer solution (DUONEB) 3 mL INHALATION q 6 H PRN acetaminophen 1,000 mg tab(s) (TYLENOL) 1,000 mg ORAL q 8 H phosphorus 250 mg tab(s) (K PHOS NEUTRAL) 250 mg ORAL PC and HS senna-docusate 8.6-50 mg 1 tablet (SENNA-S) 1 tablet ORAL BID haloperidol lactate 2 mg short-acting injection (HALDOL) 2 mg INTRAVENOUS q 6 H PRN budesonide, enteric coated 9 mg cap(s) (ENTOCORT EC) 9 mg ORAL DAILY cetirizine 10 mg tab(s) (ZYRTEC) 10 mg ORAL DAILY metoprolol tartrate (short acting) 12.5 mg tab(s) (LOPRESSOR) 12.5 mg ORAL q 12 H rosuvastatin 10 mg tab(s) (CRESTOR) 10 mg ORAL AT BEDTIME gabapentin 200 mg cap(s) (NEURONTIN) 200 mg ORAL q 8 H polyethylene glycol 3350 17 g packet 17 g ORAL DAILY piperacillin-tazobactam iv piggyback 3.375 g in dextrose (iso-osmotic) 50 mL (ZOSYN) 3.375 g INTRAVENOUS q 6 H NaCl 0.9% iv infusion 100 mL/hr INTRAVENOUS CONTINUOUS iv contrast (radiology procedure) INTRAVENOUS DIRECTED PRN iv contrast (radiology procedure) INTRAVENOUS DIRECTED PRN PHENobarbital 30 mg injection 30 mg INTRAVENOUS ONCE potassium chloride ER 20-40 mEq tab(s) (KLOR-CON) 20-40 mEq ORAL/FEEDING TUBE PRN Or potassium chloride iv piggyback 20 mEq/100 mL 20 mEq INTRAVENOUS PRN magnesium sulfate iv piggyback in sterile water 2 g 50 mL 2 g INTRAVENOUS PRN calcium gluconate iv piggyback 2 g in NaCl (iso-osmotic) 100 mL 2 g INTRAVENOUS PRN(NO DISPENSE) Objective VITAL SIGNS BP 86/58 Pulse 103 Temp (Src) 99.5 (Oral) Resp 16 Ht 5' 1.496" (1.56m) Wt 125 lb 10.6 oz (57.0kg) SpO2 98% BMI 23.36 kg/(m2). O2 Therapy: Nasal Cannula, Liters (Numeric Only): 2 Temp (24hrs), Av.1 ?C (100.6 ?F), Min:37.1 ?C (98.8 ?F), Max:39.4 ?C (102.9 ?F) Date 12/28/24 07 - 12/29/24 0659 12/29/24 07 - 12/30/24 0659 Shift 8750-8125 0062-6144 4635-5404 24 Hour Total 0881-7553 8386-0991 0915-1003 24 Hour Total INTAKE IV 2754 2754 222 222 Volume (mL) (NaCl 0.9% 1,000 mL iv bolus) 1000 1000 Volume (mL) (NaCl 0.9% 1,000 mL iv bolus) 1000 1000 Volume (mL) (piperacillin-tazobactam iv piggyback 3.375 g in dextrose (iso-osmotic) 50 mL (ZOSYN)) 100 100 Volume (mL) (potassium chloride iv piggyback 20 mEq/100 mL) 100 100 100 100 Volume (mL) (NaCl 0.9% iv infusion) 554 554 122 122 Shift Total 2754 2754 222 222 OUTPUT Urine 037 422 0403 60 60 Straight cath (ml) 600 600 Output ( Indwelling Urinary Catheter 12/28/24 1829 [facility]) 250 375 625 60 60 Chest Tube 100 30 40 170 0 0 Chest Tube Output (Chest Tube 12/26/24 2130 Left Lateral Tube #1) 100 30 40 170 0 0 Shift Total 100 254 602 8298 60 60 Weight (kg) 62.2 62.2 57 57 57 57 57 57 PHYSICAL EXAM: GENERAL: Alert. Reports left sided abd pain at ribs. Resting uncomfortably. NEURO: AANDOx3. No focal neurologic deficits. Sensation grossly intact. Attention is waxing and waning HEENT: Normocephalic. Atraumatic. EOMI. Left subclavian CVC. LUNGS: Unlabored breathing. Equal excursion bilaterally. Chest tube in place with an output of 170 sanguineous fluid. No air leak appreciated. CARDIAC: Tachycardic, on tele, Good perfusion throughout. ABDOMEN: Soft, non-tender, non-distended. No rebound or guarding. EXTREMITIES: BRAGA. No deformities. Peripheral lines in place upper extremities. SKIN: No obvious jaundice or pallor. DATA: Diagnostic tests reviewed for today's visit: Recent Labs 12/28/24 1700 PH 7.51* PCO2 29* PO2 65* BE 1 HCO3 23 O2HB 93* COHB 1.2 MHGB 0.7 PHTC 7.49* PCO2T 30* PO2T 70* Recent Labs 12/29/24 0256 12/28/24 1820 12/28/24 1700 12/28/24 1301 12/28/24 0258 12/27/24 0249 12/26/24 2000 12/26/24 1426 12/26/24 1426 12/26/24 1253 CREAT 0.86 0.72 -- 0.93 0.80 0.65 -- < > 0.73 -- BUN 19 20 -- 25* 25* 17 -- < > 16 -- NA 135* 136 -- 132* 130* 134* -- < > 139 -- K 3.4* 3.7 -- -- 4.4 4.0 -- -- 3.9 -- CHLOR 105 102 -- 99 101 103 -- < > 105 -- CO2 21* 21* -- 22 21* 21* -- < > 21* -- ANION 9 13 -- 11 8 10 -- < > 13 -- GLUC 113* 109* -- 158* 135* 159* -- < > 106* -- CA 7.3* 8.3* -- 8.4* 8.4* 7.4* -- < > 8.3* -- P -- -- -- -- 3.9 3.6 -- -- -- -- MG -- -- -- -- 2.7* 1.7 -- -- -- -- ALB -- -- -- -- -- -- -- -- 3.9 -- AST -- -- -- -- -- -- -- -- 68* -- ALT -- -- -- -- -- -- -- -- 55* -- ALKPHOS -- -- -- -- -- -- -- -- 74 -- TBILI -- -- -- -- -- -- -- -- 0.5 -- WBC 3.02* 4.51 -- -- 11.93* 5.17 5.70 < > 6.74 -- HB 9.8* 11.6 -- -- 13.2 11.1* 12.5 < > 12.5 -- HCT 29.8* 34.3* -- -- 38.9 32.7* 36.2 < > 36.5 -- PLT 96* 100* -- -- 157 110* 108* < > 127* -- LACT -- -- 0.9 -- -- -- -- -- 0.9 1.2 < > = values in this interval not displayed. Assessment AND Plan ACTIVE PROBLEM LIST Fall Closed Fracture of Multiple Ribs of Left Side Hemopneumothorax On Left Alcohol Use Pneumothorax Fibromyalgia Type 2 Diabetes (Hcc) History of Stroke History of Cholecystectomy Ibs (Irritable Bowel Syndrome) Posttraumatic Respiratory Insufficiency Assessment 79 year old female with limited PMH for review, reported alcohol abuse, GERD, HTN, IBS and possible aspirin/Plavix use who presents to [facility] as a transfer from [place] for treatment of injuries sustained during a reported fall. Yesterday with persistent tachycardia that was SVT on EKG, febrile and leukopenia and continued left sided pain. Blood cultures pending, started zosyn, urine cultures pending, labs are WNL, CTAP with no acute findings, CTA chest negative for PE. Continuing to investigate for source of her sepsis. Hospital course: 12/26: transfer from [place]. Admitted to ICU 12/27: stable for RNF 12/28: septic with tachy SVT, febrile, leukopenia, zosyn, cultures, CTA chest and CTAP with no acute findings Neuro: Chronic alcohol use - AANDOX3 drowsy - Haldol PRN given ovn for agitation - Did not require any phenobarb ovn - CIWAs - Thiamine and folic acid - pain: scheduled tylenol, lidocaine patches, PRN oxy - Gabapentin 200 mg TID - nausea prn CV: - Home Plavix held - On LVX 30 mg SubQ BID - On home lopressor, statin - Tele - EKG as indcated Resp: - 98% on O2 Therapy: 2L NC Multiple left rib fractures, hemopneumothorax, improving: - CTA chest negative for PE and demonstrates a trace left pneumo - Chest tube left chest: output 170 sanguineous. GI: - DIET REGULAR - Tolerating diet - Bowel Regimen: Senna, miralax - GI ppx: None - No bowel movements - procalcitonin pending Renal: - Cr: 0.86 - Urine output: 970 mL - strict Is/Os - electrolyte replacement per unit protocol Creatinine Date Value Ref Range Status 12/29/2024 0.86 0.58 - 0.96 mg/dL Final 12/28/2024 0.72 0.58 - 0.96 mg/dL Final 12/28/2024 0.93 0.58 - 0.96 mg/dL Final 12/28/2024 0.80 0.58 - 0.96 mg/dL Final Magnesium Date Value Ref Range Status 12/28/2024 2.7 (H) 1.7 - 2.3 mg/dL Final Potassium Date Value Ref Range Status 12/29/2024 3.4 (L) 3.7 - 5.1 mmol/L Final 12/28/2024 3.7 3.7 - 5.1 mmol/L Final 12/28/2024 4.4 3.7 - 5.1 mmol/L Final Intake/Output Summary (Last 24 hours) at 12/29/2024 0912 Last data filed at 12/29/2024 0800 Gross per 24 hour Intake 2976 ml Output 1405 ml Net 1571 ml Heme: - HGB - 9.8 from 11.6 - LVX 30 mg BID - transfuse for hemoglobin < 7.0 in a stable patient or for symptomatic anemia, not indicated at this time Endo: - GLU - 135 - continue blood sugar checks ID: Temp (24hrs), Av.1 ?C (100.6 ?F), Min:37.1 ?C (98.8 ?F), Max:39.4 ?C (102.9 ?F) Sepsis, unclear etiology - febrile at 39.4 - 12/28 CTA chest and CTAP with no acute findings - Zosyn started 12/28 - Blood cultures pending, urine cultures pending - WBC - 3.02 from 4.51 - leukopenia noted 12/28 PM - continue monitor for any signs of infection - Left subclavian catheter placed 12/28, attempted left IJ, unable as she was rigorous WBC Date Value Ref Range Status 12/29/2024 3.02 (L) 3.70 - 11.00 k/uL Final Ppx: - GI: None - DVT: LVX - Seizure: None Lines: Lines, Drains, and Airways Line Duration Central Line Triple Lumen 12/28/24 1900 Non-tunneled Left Neck <1 day Peripheral 12/28/24 1829 Short Left Forearm 20 Gauge <1 day Drain Duration Chest Tube 12/26/24 2130 Left Lateral Tube #1 2 days Indwelling Urinary Catheter 12/28/24 1829 [facility] <1 day Consults: - trauma - SICU Dispo: - Stable for floor SICU Service Pager: For questions or concerns Tue-Tue 6a-5p please page [phone]. After 5pm and on Weekends and Holidays, please page [phone]. SIGNATURE: Antonino Cordon MD, MS4 PATIENT NAME: Cristino Verdugo DATE: 12/29/2024 TIME: 9:12 AM PAGER: above PROGRESS Observed: 12/29/2024 8:40 AM Status: COMPLE[facility]ED [facility]: [id number] Author: GIULIA COPELAND MD Service: General Surgery Author Type: Physician Type: Progress Notes Filed: 12/30/2024 11:43 Note Text: Trauma Surgery Progress Note SERVICE DATE: 12/29/24 Trauma Service Pager: For questions or concerns Tue-Tue 6a-5p please page [phone]. After 5pm and on Weekends and Holidays, please page [phone] if in ICU or [phone] if on RNF. SUBJECTIVE: Resting in bed, alert and oriented x 3, chest tube with no airleak, serosanguineous output about , 170 from 250, patient resting comfortably in bed on room air, patient had tachycardia to the 140s 150s for which metoprolol was given however patient remained in sinus tachycardia asymptomatic OBJECTIVE: Vitals: Temp (24hrs), Av.7 ?C (98 ?F), Min:35.8 ?C (96.4 ?F), Max:37.1 ?C (98.8 ?F) BP 122/66 Pulse 103 Temp 36.8 ?C (98.2 ?F) (Oral) Resp 14 Ht 156.2 cm (5' 1.5") Wt 57 kg (125 lb 10.6 oz) SpO2 96% BMI 23.36 kg/m? O2 Therapy: Room Air IANDO: Date 12/29/24699 - 12/30/24 0659 12/30/24 07 - 12/31/24 0659 Shift 7923-2011 7023-6236 9726-0757 24 Hour Total 6158-0780 4214-5855 5122-1674 24 Hour Total INTAKE PO 150 150 PO 150 150 IV 1261 50 1311 1259 1259 Volume (mL) (lactated ringers 500 mL iv bolus) 500 500 Volume (mL) (piperacillin-tazobactam iv piggyback 3.375 g in dextrose (iso-osmotic) 50 mL (ZOSYN)) 50 50 100 50 50 Volume (mL) (potassium chloride iv piggyback 20 mEq/100 mL) 100 100 Volume (mL) (NaCl 0.9% iv infusion) 611 611 Volume (mL) (lactated ringers iv infusion) 1209 1209 Shift Total 1411 50 1461 1259 1259 OUTPUT Urine 280 185 450 915 75 75 Output ( Indwelling Urinary Catheter 12/28/24 1829 [facility]) 280 185 450 915 75 75 Chest Tube 30 0 130 160 0 0 Chest Tube Output (Chest Tube 12/26/24 2130 Left Lateral Tube #1) 30 0 130 160 0 0 # of BMs Stool Incontinence 1 x 1 x Number of BMs 1 x 1 x Shift Total 310 364 299 1694 75 75 Weight (kg) 57 57 57 57 57 57 57 57 MEDICATIONS: Current Facility-Administered Medications Medication Dose Route Frequency potassium chloride ER 20-40 mEq tab(s) (KLOR-CON) 20-40 mEq ORAL/FEEDING TUBE PRN Or potassium chloride iv piggyback 20 mEq/100 mL 20 mEq INTRAVENOUS PRN magnesium sulfate iv piggyback in sterile water 2 g 50 mL 2 g INTRAVENOUS PRN calcium gluconate iv piggyback 2 g in NaCl (iso-osmotic) 100 mL 2 g INTRAVENOUS PRN(NO DISPENSE) metoprolol 5 mg injection (LOPRESSOR) 5 mg INTRAVENOUS q 6 HR lactated ringers iv infusion 75 mL/hr INTRAVENOUS CONTINUOUS polyethylene glycol 3350 17 g packet 17 g ORAL DAILY piperacillin-tazobactam iv piggyback 3.375 g in dextrose (iso-osmotic) 50 mL (ZOSYN) 3.375 g INTRAVENOUS q 6 H iv contrast (radiology procedure) INTRAVENOUS DIRECTED PRN folic acid 1 mg tab(s) 1 mg ORAL DAILY PHENobarbital 32.4 mg tab(s) 32.4 mg ORAL/FEEDING TUBE q 24 H enoxaparin 30 mg injection (LOVENOX) 30 mg SUBCUTANEOUS q 12 HR lidocaine 4 % 2 patch (SALONPAS) 2 patch TRANSDERMAL DAILY And lidocaine patch - REMOVE OTHER AT BEDTIME And lidocaine - VERIFY PATCH OTHER q 8 H ipratropium-albuterol 3 mL nebulizer solution (DUONEB) 3 mL INHALATION q 6 H PRN acetaminophen 1,000 mg tab(s) (TYLENOL) 1,000 mg ORAL q 8 H phosphorus 250 mg tab(s) (K PHOS NEUTRAL) 250 mg ORAL PC and HS senna-docusate 8.6-50 mg 1 tablet (SENNA-S) 1 tablet ORAL BID haloperidol lactate 2 mg short-acting injection (HALDOL) 2 mg INTRAVENOUS q 6 H PRN budesonide, enteric coated 9 mg cap(s) (ENTOCORT EC) 9 mg ORAL DAILY cetirizine 10 mg tab(s) (ZYRTEC) 10 mg ORAL DAILY metoprolol tartrate (short acting) 12.5 mg tab(s) (LOPRESSOR) 12.5 mg ORAL q 12 H rosuvastatin 10 mg tab(s) (CRESTOR) 10 mg ORAL AT BEDTIME gabapentin 200 mg cap(s) (NEURONTIN) 200 mg ORAL q 8 H NaCl 0.9% iv flush bag 20 mL INTRAVENOUS PRN ondansetron 4 mg tab(s) (ZOFRAN) 4 mg ORAL q 6 H PRN Or ondansetron (PF) 4 mg injection (ZOFRAN) 4 mg INTRAVENOUS q 6 H PRN oxyCODONE IR 2.5-5 mg tab(s) (ROXICODONE) 2.5-5 mg ORAL q 4 H PRN thiamine 100 mg tab(s) (VITAMIN B1) 100 mg ORAL/FEEDING TUBE TID Labs: Recent Labs 12/30/24 0336 12/29/24 0256 12/28/24 1820 12/28/24 1700 12/28/24 1301 12/28/24 0258 NA 137 135* < > -- < > 130* K 4.0 3.4* < > -- -- 4.4 CHLOR 109* 105 < > -- < > 101 CO2 20* 21* < > -- < > 21* BUN 17 19 < > -- < > 25* CREAT 0.80 0.86 < > -- < > 0.80 GLUC 84 113* < > -- < > 135* ANION 8 9 < > -- < > 8 CA 7.4* 7.3* < > -- < > 8.4* MG -- -- -- -- -- 2.7* P -- -- -- -- -- 3.9 WBC 5.59 3.02* < > -- -- 11.93* HB 10.2* 9.8* < > -- -- 13.2 HCT 31.9* 29.8* < > -- -- 38.9 PLT 101* 96* < > -- -- 157 LACT -- -- -- 0.9 -- -- PH -- -- -- 7.51* -- -- PCO2 -- -- -- 29* -- -- PO2 -- -- -- 65* -- -- BE -- -- -- 1 -- -- HCO3 -- -- -- 23 -- -- < > = values in this interval not displayed. PHYSICAL EXAM: GENERAL: Alert. No distress. Resting comfortably. NEURO: AANDOx3. No focal neurologic deficits. Sensation grossly intact. HEENT: Normocephalic. Atraumatic. EOMI. LUNGS: Unlabored breathing. Equal excursion bilaterally, left chest tube continue -20 suction output serosanguineous CARDIAC: Regular rate. Good perfusion throughout. ABDOMEN: Soft, non-tender, non-distended. No rebound or guarding. EXTREMITIES: BRAGA. No deformities. SKIN: No obvious jaundice or pallor. ASSESSMENT AND PLAN: Assessment Active Hospital Problems Diagnosis Date Noted Pneumothorax 12/26/2024 Posttraumatic respiratory insufficiency 12/27/2024 Fall 12/26/2024 Closed fracture of multiple ribs of left side 12/26/2024 Hemopneumothorax on left 12/26/2024 Alcohol use 12/26/2024 Type 2 diabetes (HCC) 12/26/2024 Chronic IBS (irritable bowel syndrome) 12/26/2024 Chronic History of stroke 2013 Chronic History of cholecystectomy 2008 Chronic 79 year old female s/p reported GLF @ home on 12/26/2024 with history of ETOH abuse (possibly on ASA and/or Plavix) Imaging performed: - 12/26/2024 - CT [facility]AP @ [place], CXR @ [facility] Traumatic Injuries: - Left 6-9 rib fractures with associated hemopneumothorax and subcutaneous emphysema Hospital Course: - 12/26- Serratus block and L CT placement Care Plan: Multiple left rib fractures, hemopneumothorax, subQ emphysema - Left chest tube placed on 12/26, no air leak, output serosanguineous -170 from 250 continue monitoring output -Daily chest x-ray stable -Multimodal pain control -Hold anticoagulation, home Plavix H/O ETOH abuse -Alcohol use, daily 1 consumption, on admission EtOH less than 11 -CIWA protocol, thiamine supplementation, phenobarb taper -Social work consult Hyponatremia -Sodium 135 from 136 this morning, at goal -Continue monitor for any symptoms, at this time asymptomatic Leukocytosis -White blood count 3.0 from 4.5 continue monitor for signs of infections -Continue monitoring currently afebrile no signs of obvious infection - Continue regular diet tolerating well - Ongoing pain regimen as ordered - RNF for floor PPX: - DVT: LVX - Ulcer: none - Vit D level if > 65 yo: 46.4 (WNL) Consulted Services: - sicu, trauma Dispo Planning: - PT/OT recs when able. Case management following. Incidentals: - n/a Assessment and plan d/w Dr. Copeland. SIGNATURE: Ca Vallejo DO PATIENT NAME: Cristino Verdugo DATE: 12/30/2024 TIME: 8:40 AM Pager: see below Trauma Service Pager: For questions or concerns Mon-Fri 6a-5p please page [phone]. After 5pm and on Weekends and Holidays, please page [phone] if in ICU or [phone] if on RNF. I personally saw and examined the patient on 12/29. I reviewed the resident's note. I agree with the resident's assessment and plan unless otherwise noted. XR CHEST 1V FRONTAL Observed: 12/29/2024 3:41 AM Status: F Source: [facility] * * *Final Report* * * DATE OF EXAM: Dec 29 2024 3:41AM AKX [id number] - XR CHEST 1V FRONTAL / PROCEDURE REASON: Evaluate tube, line, or lead position * * * * Physician Interpretation * * * * EXAMINATION: CHEST RADIOGRAPH (SINGLE VIEW AP OR PA) CLINICAL HISTORY: Evaluate tube, line, or lead position MQ: [id number]_5 Comparison: 12/28/2024. RESULT: Lines, tubes, and devices: A left lower chest tube and a left venous catheter remain in place. Lungs and pleura: There is poor inflation of the lungs with crowded lung markings in both lung bases. The pleural margins appear unremarkable. Cardiomediastinal silhouette: Normal cardiomediastinal silhouette. Other: The visualized bony thorax appears unremarkable. IMPRESSION: Stable exam with a left chest tube and left venous catheter remaining in situ. Cloud Subject Matter Expert: PSCB Transcribe Date/Time: Dec 29 2024 7:43A Dictated by : REED ARAGON MD This examination was interpreted and the report reviewed and electronically signed by: REED ARAGON MD on Dec 29 2024 7:45AM EST [id number] BAS METAB 1999 PNL SERPL Collected: 2:56 AM Status: F Source: [facility] Order Comment: Specimen Type : BLOOD SPECIMEN Ordering Facility: [facility] Address: [address] [place] [address] TYPE CODE TESTS RESULT OUT OF RANGE REFERENCE UNITS LAB 2345-7(LOINC) Glucose SerPl-mCnc 113 High 74-99 mg/dL Result Comment: The [place] Diabetes Association (ADA) provides guidance for cutoff values for fasting glucose and random glucose. The ADA defines fasting as no caloric intake for at least 8 hours. Fasting plasma glucose results between 100 to 125 mg/dL indicate increased risk for diabetes (prediabetes). Fasting plasma glucose results greater than or equal to 126 mg/dL meet the criteria for diagnosis of diabetes. In the absence of unequivocal hyperglycemia, results should be confirmed by repeat testing. In a patient with classic symptoms of hyperglycemia or hyperglycemic crisis, random plasma glucose results greater than or equal to 200 mg/dL meet the criteria for diagnosis of diabetes. Reference: Standards of Medical Care in Diabetes 2016, [place] Diabetes Association. Diabetes Care. 2016.39(Suppl 1). LAB 3094-0(LOINC) BUN SerPl-mCnc 19 7-21 mg/dL LAB 2160-0(LOINC) Creat SerPl-mCnc 0.86 0.58-0.96 mg/dL LAB 2951-2(LOINC) Sodium SerPl-sCnc 135 Low 136-144 mmol/L LAB 2823-3(LOINC) Potassium SerPl-sCnc 3.4 Low 3.7-5.1 mmol/L LAB 2075-0(LOINC) Chloride SerPl-sCnc 105 98-107 mmol/L LAB 2028-9(LOINC) CO2 SerPl-sCnc 21 Low 22-30 mmol/L LAB 1863-0(LOINC) Anion Gap4 SerPl-sCnc 9 8-15 mmol/L LAB 89771-8(LOINC) Calcium SerPl-mCnc 7.3 Low 8.5-10.2 mg/dL LAB 16921-8(LOINC) eGFRcr SerPlBld CKD-EPI 2020 70 >=60 mL/min/1. 73m??? Result Comment: Estimated Gl omerular Filtration Rate (eGFR) is calculated using the 2020 CKD-EPI creatinine equation. This equation utilizes serum creatinine, sex, and age as parameters. The creatinine assay has traceable calibration to isotope dilution-mass spectrometry. Refer to KDIGO guidelines for clinical interpretation. In patients with unstable renal function, e.g. those with acute kidney injury, the eGFR may not accurately reflect actual GFR. Performed By: #### [id number], 54201-4 #### [facility] CLIA [id number] [address] PROCALCITONIN SERPL-MCNC Collected: 12/29/2024 2:56 A M Status: F Source: [facility] Order Comment: Specimen Type : BLOOD SPECIMEN Ordering Facility: [facility] Address: [address] [place] [address] TYPE CODE TESTS RESULT OUT OF RANGE REFERENCE UNITS LAB 35233-9(INC) Procalcitonin SerPl-mCnc 1.16 High <0.09 ng/mL Result Comment: For a guided interpretation of test results, please visit the Change in Procalcitonin Calculator, [email or web address]. Performed By: #### 99404-6, 24432-4 #### [facility] CLIA [id number] [address] CBC PNL BLD AUTO Collected: 12/29/2024 2:56 AM Statu s: F Source: [facility] Order Comment: Specimen Type : BLOOD SPECIMEN Ordering Facility: [facility] Address: [address] [place] [address] TYPE CODE TESTS RESULT OUT OF RANGE REFERENCE UNITS LAB 6690-2(LOINC) WBC # Bld Auto 3.02 Low 3.70-11.00 k/uL LAB 789-8(LOINC) RBC # Bld Auto 2.86 Low 3.90-5.20 m/ uL LAB 718-7(LOINC) Hgb Bld-mCnc 9.8 Low 11.5-15.5 g/dL LAB 4544-3(LOINC) Hct VFr Bld Auto 29.8 Low 36.0-46.0 % LAB 787-2(LOINC) MCV RBC Auto 104.2 High 80.0-100.0 fL LAB 785-6(LOINC) MCH RBC Qn Auto 34.3 High 26.0-34.0 pg LAB 786-4(LOINC) MCHC RBC Auto-mCnc 32.9 30.5-36.0 g/dL LAB 01483-6([facility]) RDW RBC-Rto 12.8 11.5-15.0 % LAB 777-3([facility]) Platelet # Bld Auto 96 Low 150-400 k/uL LAB 81527-2([facility]) PMV Bld Auto 10.6 9.0-12.7 fL LAB 771-6([facility]) nRBC # Bld Auto <0.01 <0.01 k/uL Performed By: #### [id number] # ### [facility] CLIA [id number] [address] ECG COMPLETE Observed: 12/29/2024 12:31 AM Status: F Source: [facility] Ventricular Rate : 159 BPM Atrial Rate : 159 BPM P-R Interval : 170 ms QRS Duration : 74 ms Q-T Interval : 310 ms QTC Calculation(Bazett) : 504 ms Calculated P [place] : -26 degrees Calculated R [place] : -9 degrees Calculated T [place] : 160 degrees SINUS TACHYCARDIA LEFT VENTRICULAR HYPERTROPHY WITH REPOLARIZATION ABNORMALITY ( R in aVL , Darin product ) POOR R WAVE PROGRESSION WHEN COMPARED WITH ECG OF 28-Dec-2024 14:54, INVERTED T WAVES HAVE REPLACED NONSPECIFIC T WAVE ABNORMALITY IN LATERAL LEADS Confirmed by MD ACUNA DAVID ([id number]) on 12/31/2024 12:23:41 PM NAME : CRISTINO MATA PID : [id number] : 1945 Gender : Female Race : ORD : [id number] Procedure Date : Dec 29 2024 00:31:01 Edit Date : Dec 31 2024 12:23:46 Diagnosis: SINUS TACHYCARDIA LEFT VENTRICULAR HYPERTROPHY WITH REPOLARIZATION ABNORMALITY ( R in aVL , Darin product ) POOR R WAVE PROGRESSION WHEN COMPARED WITH ECG OF 28-Dec-2024 14:54, INVERTED T WAVES HAVE REPLACED NONSPECIFIC T WAVE ABNORMALITY IN LATERAL LEADS Confirmed by MD ACUNA DAVID ([id number]) on 12/31/2024 12:23:41 PM Test Reason : Arrhythmia Location : 200 : [facility] 4815 Overread By : MD ACUNA DAVID Edited By : MD ACUNA DAVID Referred By : , Acquired by : TELLO GRACIA CTA CHEST (NON GATED) W IVCO N PE Observed: 12/28/2024 9:49 PM Status: F Source: [facility] * * *Final Report* * * DATE OF EXAM: Dec 28 2024 9:49PM [facility] 0564 - CTA CHEST (NON GATED) W IVCON PE / PROCEDURE REASON: Pulmonary embolism (PE) suspected, high prob * * * * Physician Interpretation * * * * EXAMINATION: CHEST CTA (NON GATED) WITH CONTRAST (PULMONARY EMBOLISM PROTOCOL) CT ABDOMEN AND PELVIS WITH CONTRAST Clinical History: Fall, left-sided rib fractures and pneumothorax Technique: Chest: Spiral CT acquisition of the chest from the thoracic inlet to the upper abdomen following IV contrast. Axial 1 and 3 mm thick slices plus coronal and sagittal reformatted images. MQ: CTCP_5 Abdomen/pelvis: Spiral CT acquisition of the abdomen and pelvis was performed following intravenous contrast. Sagittal and coronal images were reconstructed. Contrast: 100 mL Omnipaque [address] Radiation dose: Integrated Dose-length product (DLP) for this visit = 637 mGy*cm CT Dose Reduction Employed: Automated exposure control(AEC) and iterative recon CTA: Post-processed images (Maximum intensity Projection (MIP), Volume-rendered (VR), or Surface shaded display images (SSD) were created, reviewed and archived. Comparison: Outside CT chest, abdomen and pelvis 12/26/2014 RESULT: CHEST: Limitations: None. Evaluation for thromboembolic disease: - Right heart chambers: No thromboembolic disease. - Main pulmonary arteries: No thromboembolic disease. - Lobar pulmonary arteries: No thromboembolic disease. - Segmental pulmonary arteries: No thromboembolic disease. - Subsegmental pulmonary arteries: No thromboembolic disease. - Additional pulmonary artery findings: The main pulmonary artery is normal in caliber. Lines, tubes, and devices: Left-sided chest tube terminates in the posterior left lung base. Lung parenchyma and airways: No consolidation. Minimal bibasilar atelectasis. No suspicious pulmonary nodule. The central airways are patent. Pleural space: Trace left pleural effusion. Trace left-sided pneumothorax. Lower neck, lymph nodes, and mediastinum: The imaged thyroid gland is normal. No lymphadenopathy in the supraclavicular, axillary, mediastinal, or hilar regions. Heart, pericardium, and thoracic vessels: Atherosclerotic change in a normal caliber thoracic aorta. The cardiac chambers are normal in size. Coronary artery atherosclerotic calcifications are noted, although the study is not optimized for coronary assessment. No pericardial effusion or thickening. Bones and soft tissues: No destructive bone lesion. Subcutaneous emphysema left chest wall. Minimally displaced segmental fractures of the anterior and lateral segments of the left third and fourth ribs. Mildly displaced segmental fractures of the posterior lateral left fifth through eighth ribs. Mildly displaced fracture left posterior lateral ninth rib. Kyphoplasty changes T8 and T9. ABDOMEN/PELVIS: Liver: No mass. Biliary: No bile duct dilation. Cholecystectomy. Spleen: No mass. No splenomegaly. Pancreas: No mass or duct dilation. Adrenals: No mass. Kidneys: Left upper pole cyst measuring 5 cm x 5 cm. No hydronephrosis or renal calculi. GI tract: No dilation or wall thickening. Colonic diverticulosis. Lymph nodes: No abdominal or pelvic lymphadenopathy. Mesentery/Peritoneum: No ascites or mass. Retroperitoneum: No mass. Vasculature: - Abdominal aorta and iliac arteries: Atherosclerotic calcifications without aneurysm. - Celiac and SMA: Atherosclerotic calcifications at the origins. - Portal venous system (SMV, splenic vein, portal vein and branches): Patent. - Hepatic veins: Patent. Pelvis: Villela catheter in the urinary bladder. Uterus is present. Bones/soft tissues: No acute osseous abnormality. Localizer images: No additional findings. IMPRESSION: 1. No CT evidence of pulmonary embolism. 2. Left chest tube with trace left-sided pneumothorax. 3. Multiple left-sided rib fractures as described above. 4. No acute CT findings in the abdomen or pelvis. Cloud Subject Matter Expert: ANA Transcribe Date/Time: Dec 28 2024 11:58P Dictated by : KATTY STRONG MD This examination was interpreted and the report reviewed and electronically signed by: KATTY STRONG MD on Dec 29 2024 12:28AM EST [id number] CT ABD/PEL W IVCON Observed: 12/28/2024 9:49 PM Status: F Source: [facility] * * *Final Report* * * DATE OF EXAM: Dec 28 2024 9:49PM [facility] 0530 - CT ABD/PEL W IVCON / PROCEDURE REASON: Abdominal pain, acute, nonlocalized * * * * Physician Interpretation * * * * EXAMINATION: CHEST CTA (NON GATED) WITH CONTRAST (PULMONARY EMBOLISM PROTOCOL) CT ABDOMEN AND PELVIS WITH CONTRAST Clinical History: Fall, left-sided rib fractures and pneumothorax Technique: Chest: Spiral CT acquisition of the chest from the thoracic inlet to the upper abdomen following IV contrast. Axial 1 and 3 mm thick slices plus coronal and sagittal reformatted images. MQ: CTCP_5 Abdomen/pelvis: Spiral CT acquisition of the abdomen and pelvis was performed following intravenous contrast. Sagittal and coronal images were reconstructed. Contrast: 100 mL Omnipaque [address] Radiation dose: Integrated Dose-length product (DLP) for this visit = 637 mGy*cm CT Dose Reduction Employed: Automated exposure control(AEC) and iterative recon CTA: Post-processed images (Maximum intensity Projection (MIP), Volume-rendered (VR), or Surface shaded display images (SSD) were created, reviewed and archived. Comparison: Outside CT chest, abdomen and pelvis 12/26/2014 RESULT: CHEST: Limitations: None. Evaluation for thromboembolic disease: - Right heart chambers: No thromboembolic disease. - Main pulmonary arteries: No thromboembolic disease. - Lobar pulmonary arteries: No thromboembolic disease. - Segmental pulmonary arteries: No thromboembolic disease. - Subsegmental pulmonary arteries: No thromboembolic disease. - Additional pulmonary artery findings: The main pulmonary artery is normal in caliber. Lines, tubes, and devices: Left-sided chest tube terminates in the posterior left lung base. Lung parenchyma and airways: No consolidation. Minimal bibasilar atelectasis. No suspicious pulmonary nodule. The central airways are patent. Pleural space: Trace left pleural effusion. Trace left-sided pneumothorax. Lower neck, lymph nodes, and mediastinum: The imaged thyroid gland is normal. No lymphadenopathy in the supraclavicular, axillary, mediastinal, or hilar regions. Heart, pericardium, and thoracic vessels: Atherosclerotic change in a normal caliber thoracic aorta. The cardiac chambers are normal in size. Coronary artery atherosclerotic calcifications are noted, although the study is not optimized for coronary assessment. No pericardial effusion or thickening. Bones and soft tissues: No destructive bone lesion. Subcutaneous emphysema left chest wall. Minimally displaced segmental fractures of the anterior and lateral segments of the left third and fourth ribs. Mildly displaced segmental fractures of the posterior lateral left fifth through eighth ribs. Mildly displaced fracture left posterior lateral ninth rib. Kyphoplasty changes T8 and T9. ABDOMEN/PELVIS: Liver: No mass. Biliary: No bile duct dilation. Cholecystectomy. Spleen: No mass. No splenomegaly. Pancreas: No mass or duct dilation. Adrenals: No mass. Kidneys: Left upper pole cyst measuring 5 cm x 5 cm. No hydronephrosis or renal calculi. GI tract: No dilation or wall thickening. Colonic diverticulosis. Lymph nodes: No abdominal or pelvic lymphadenopathy. Mesentery/Peritoneum: No ascites or mass. Retroperitoneum: No mass. Vasculature: - Abdominal aorta and iliac arteries: Atherosclerotic calcifications without aneurysm. - Celiac and SMA: Atherosclerotic calcifications at the origins. - Portal venous system (SMV, splenic vein, portal vein and branches): Patent. - Hepatic veins: Patent. Pelvis: Villela catheter in the urinary bladder. Uterus is present. Bones/soft tissues: No acute osseous abnormality. Localizer images: No additional findings. IMPRESSION: 1. No CT evidence of pulmonary embolism. 2. Left chest tube with trace left-sided pneumothorax. 3. Multiple left-sided rib fractures as described above. 4. No acute CT findings in the abdomen or pelvis. Cloud Subject Matter Expert: ANA Transcribe Date/Time: Dec 28 2024 11:58P Dictated by : KATTY STRONG MD This examination was interpreted and the report reviewed and electronically signed by: KATTY STRONG MD on Dec 29 2024 12:28AM EST [id number] ALLIED HEALTH Observed: 12/28/2024 9:46 PM Status: COMPLETED [facility] [id number] Author: DEL SORTO Tech Service: ? Author Type: Technologist Type: Allied Health Filed: 12/28/2024 21:47 Note Text: Radiology Service Progress Note DATE OF SERVICE: December 28, 2024 TIME: 9:46 PM PATIENT IDENTITY VERIFICATION COMPLETED USING TWO (2) STANDARD IDENTIFIERS: Name and Date of confirmed by patient verbally and Name and Date of confirmed by identification band. FALL SCREENING: Has the patient had 2 falls in the last year or 1 fall with injury or currently using an Ambulatory Assistive Device (Walker, Cane, Wheelchair, Crutches, etc.)? Inpatient: Screened on floor PATIENT GENDER DATA: Assigned female at . status: : No status: NO. PATIENT RELEVANT IMPLANT DATA REVIEWED: Not Applicable PATIENT PRESENTS WITH AN IMPLANTABLE OR ATTACHED DOUPER: No ALLERGIES: Reviewed and unchanged CONTRAST ALLERGY: NO. EXAM: CT -CONTRAST INDUCED NEPHROPATHY RISK FACTORS: Patient age > 60 years CREATININE: Creatinine Date Value Ref Range Status 12/28/2024 0.72 0.58 - 0.96 mg/dL Final 12/28/2024 0.93 0.58 - 0.96 mg/dL Final 12/28/2024 0.80 0.58 - 0.96 mg/dL Final Estimated Glomerular Filtration Rate Date Value Ref Range Status 12/28/2024 86 >=60 mL/min/1.73m? Final Comment: Estimated Glomerular Filtration Rate (eGFR) is calculated using the 2020 CKD-EPI creatinine equation. This equation utilizes serum creatinine, sex, and age as parameters. The creatinine assay has traceable calibration to isotope dilution-mass spectrometry. Refer to KDIGO guidelines for clinical interpretation. In patients with unstable renal function, e.g. those with acute kidney injury, the eGFR may not accurately reflect actual GFR. P.O.C.T. RESULTS: POC done: Yes, See Lab Tab December 28, 2024 TREATMENT: N/A PERIPHERAL IV DATA: Inpatient - refer to LDA documentation RADIOLOGY DEPARTMENT: CT; Exam(s) Completed: Abdomen/Pelvis and PE Study SIGNATURE: Pablo Abrams PATIENT NAME: Cristino Verdugo DATE: December 28, 2024 TIME: 9:46 PM PROCEDURE Observed: 12/28/2024 7:58 PM Status: COMPLETED Source: [facility] ID: [id number] Author: WALLACE DEAN MD Service: General Surgery Author Type: Physician Type: Procedures Filed: 01/08/2025 12:15 Note Text: Attestation signed by Wallace Dean MD at 01/08/2025 12:15 PM I was not present for procedure. BEDSIDE PROCEDURE NOTE CENTRAL LINE INSERTION Date/Start Time: 12/28/2024 5:15 PM Date/Stop Time: 12/28/2024 5:25 PM Performed by: Gricelda Purdy MD Authorized by: Wallace Dean MD Where was Patient When this Procedure was Performed: Bedside/Unscheduled Procedure Room This procedure has been performed in part by a resident/fellow under attending's direction Informed Consent Consent Obtained: Written [place] Protocol A moment to CARE was completed. SIGN IN Personnel directly involved with the procedure wore the appropriate PPE. Special Equipment: Yes Patient/Surrogate Stated/Verified: Patient name, Date of , Relevant allergies and Intended procedure TIME OUT Intended patient and procedure match source documents. Consent obtained and matches the intended procedure. No fire risk assessment and interventions applicable. Pre-Procedure Details: The area was prepped with chlorhexidine (Chloroprep) and allowed to dry. A sterile full body drape was applied following the usual aseptic technique. Usual aseptic technique was not followed due to clinical factors necessitating an emergent procedure [facility] Central Line Insertion Checklist, attached to the Central Line- Associated Bloodstream Infection Prevention policy utilized: Yes Medications: Local Anesthesia (see MAR): Lidocaine 1% Procedure Details: Indication: Difficult intravenous access and venous access Patient Position: Trendelenburg Site: Left subclavian vein Site Selection Rationale: Attempted Left IJ with ultrasound guidance but inable due to patient participation and respiration variations. switched to subclavian on the left as patient already had chest tube in this side as well. New Stick: The vein was cannulated with direct imaging visualization with an 18 gauge needle.Ultrasound guidance used and image not captured. A 20 cm triple-lumen, 7 Fr, non-tunneled, pressure injectable, antimicrobial catheter was advanced over the guidewire and left in situ while the guidewire was removed. The catheter was secured in place at 19 cm. Securement: Antibiotic disc placed, line sutured, sterile dressing applied, sterile caps on all hubs and occlusive dressing applied Assessment: Blood return through all ports, free fluid flow, placement verified by x-ray and no pneumothorax on x-ray All catheters, needles, and wires were accounted for and intact Number of Attempts: 1 Successful Placement: yes Post-Procedure Details: Patient Tolerance: Patient tolerated the procedure well with no immediate complications Estimated Blood Loss: scant SIGN OUT All instruments, equipment, possible retained foreign bodies accounted for. The post-procedure POC has been communicated to the patient or surrogate. Post-procedure POC communicated to patient's multidisciplinary team (including bedside nurse for hospitalized patients). SIGNATURE: Gricelda Purdy MD PATIENT NAME: Cristino Verdugo DATE: December 28, 2024 TIME: 7:58 PM BAS METAB 2000 PNL SERPL Collected: 6:20 PM Status: F Source: [facility] Order Comment: Specimen Type : BLOOD SPECIMEN Ordering Facility: [facility] Address: [address] [place] [address] TYPE CODE TESTS RESULT OUT OF RANGE REFERENCE UNITS LAB 2345-7(LOINC) Glucose SerPl-mCnc 109 High 74-99 mg/dL Result Comment: The [place] Diabetes Association (ADA) provides guidance for cutoff values for fasting glucose and random glucose. The ADA defines fasting as no caloric intake for at least 8 hours. Fasting plasma glucose results between 100 to 125 mg/dL indicate increased risk for diabetes (prediabetes). Fasting plasma glucose results greater than or equal to 126 mg/dL meet the criteria for diagnosis of diabetes. In the absence of unequivocal hyperglycemia, results should be confirmed by repeat testing. In a patient with classic symptoms of hyperglycemia or hyperglycemic crisis, random plasma glucose results greater than or equal to 200 mg/dL meet the criteria for diagnosis of diabetes. Reference: Standards of Medical Care in Diabetes 2016, [place] Diabetes Association. Diabetes Care. 2016.39(Suppl 1). LAB 3094-0(LOINC) BUN SerPl-mCnc 20 7-21 mg/dL LAB 2160-0(LOINC) Creat SerPl-mCnc 0.72 0.58-0.96 mg/dL LAB 2951-2(LOINC) Sodium SerPl-sCnc 136 136-144 mmol/L LAB 2823-3(LOINC) Potassium SerPl-sCnc 3.7 3.7-5.1 mmol/L LAB 2075-0(LOINC) Chloride SerPl-sCnc 102 98-107 mmol/L LAB 2028-9(LOINC) CO2 SerPl-sCnc 21 Low 22-30 mmol/L LAB 1863-0(LOINC) Anion Gap4 SerPl-sCnc 13 8-15 mmol/L LAB 62263-5(LOINC) Calcium SerPl-mCnc 8.3 Low 8.5-10.2 mg/dL LAB 63499-7(LOINC) eGFRcr SerPlBld CKD-EPI 2020 86 >=60 mL/min/1. 73m??? Result Comment: Estimated Gl omerular Filtration Rate (eGFR) is calculated using the 2020 CKD-EPI creatinine equation. This equation utilizes serum creatinine, sex, and age as parameters. The creatinine assay has traceable calibration to isotope dilution-mass spectrometry. Refer to KDIGO guidelines for clinical interpretation. In patients with unstable renal function, e.g. those with acute kidney injury, the eGFR may not accurately reflect actual GFR. Performed By: #### [id number] # ### [facility] CLIA [id number] [address] CBC PNL BLD AUTO Collected: 12/28/2024 6:20 PM Statu s: F Source: [facility] Order Comment: Specimen Type : BLOOD SPECIMEN Ordering Facility: [facility] Address: [address] [place] [address] TYPE CODE TESTS RESULT OUT OF RANGE REFERENCE UNITS LAB 6690-2(LOINC) WBC # Bld Auto 4.51 3.70-11.00 k/uL LAB 789-8(LOINC) RBC # Bld Auto 3.30 Low 3.90-5.20 m/ uL LAB 718-7(LOINC) Hgb Bld-mCnc 11.6 11.5-15.5 g/dL LAB 4544-3(LOINC) Hct VFr Bld Auto 34.3 Low 36.0-46.0 % LAB 787-2(LOINC) MCV RBC Auto 103.9 High 80.0-100.0 fL LAB 785-6(LOINC) MCH RBC Qn Auto 35.2 High 26.0-34.0 pg LAB 786-4(LOINC) MCHC RBC Auto-mCnc 33.8 30.5-36.0 g/dL LAB 58185-2(LOINC) RDW RBC-Rto 12.6 11.5-15.0 % LAB 777-3(LOINC) Platelet # Bld Auto 100 Low 150-400 k/uL Result Comment: No clot dete cted. LAB 19734-4([facility]) PMV Bld Auto 10.1 9.0-12.7 fL LAB 771-6([facility]) nRBC # Bld Auto <0.01 <0.01 k/uL Performed By: #### 60621-1 # ### [facility] CLIA [id number] [address] XR CHEST 1V FRONTAL Observed: 12/28/2024 6:13 PM Status: F Source: [facility] * * *Final Report* * * DATE OF EXAM: Dec 28 2024 6:13PM AKX 5290 - XR CHEST 1V FRONTAL / PROCEDURE REASON: Evaluate tube, line, or lead position * * * * Physician Interpretation * * * * EXAMINATION: CHEST RADIOGRAPH (PORTABLE SINGLE VIEW AP) Exam Date/Time: 12/28/2024 6:13 PM CLINICAL HISTORY: Evaluate tube, line, or lead position MQ: XCPR_5 Comparison: 12/28/2024 4:30 PM RESULT: Lines, tubes, and devices: Left subclavian central line with tip in the SVC. Lungs and pleura: Bibasilar atelectasis versus scarring. Elevation of the right hemidiaphragm. _ No pneumothorax. Cardiomediastinal silhouette: Stable cardiomediastinal silhouette. Calcified tortuous aorta. Bones and soft tissues: Left rib fractures. Degenerative changes of the thoracic spine. Vertebral plasties. IMPRESSION: Left subclavian central line with tip in the SVC Left rib fractures. Bibasilar atelectasis versus scarring. Elevation of the right hemidiaphragm. Cloud Subject Matter Expert: PSCB Transcribe Date/Time: Dec 28 2024 7:58P Dictated by : RIZWAN MCLAIN MD This examination was interpreted and the report reviewed and electronically signed by: RIZWAN MCLAIN MD on Dec 28 2024 8:00PM EST [id number] BACTERIA UR CULT Observed: 12/28/2024 5:31 PM Status: F Source: [facility] ORGANISM ID: 1 50,000-<100,000 CFU/ml Escherichia coli ORGANISM ID: 1 (ESCHERICHIA COLI) ----- ----- ANTIBIOTIC INTERPRETATION SUE STATUS REFERENCE RANGE ----- ----- Ampicillin S <=4 F Susceptible <=8 , Intermediate >8 , Resistant >16 Cefazolin S <=1 F Susceptible 0-16 , Intermediate <0 or >16 , Resistant >16 For uncomplicated urinary tract infections, cefazolin results can be used to predict susceptibility or resistance to cephalexin. Ceftriaxone S <=1 F Susceptible <=1 , Intermediate >1 , Resistant >=4 Cefepime S <=1 F Susceptible <=2 , Susceptible-Dose Dependent >2 , Resistant >=16 Ertapenem S <=0.25 F Susceptible <=0.5 , Intermediate >.5 , Resistant >1 Meropenem S <=0.5 F Susceptible <=1 , Intermediate >1 , Resistant >2 Aztreonam S <=2 F Susceptible <=4 , Intermediate >4 , Resistant >=16 Ampicillin/Sulbact S 2 F Piperacillin/Tazobac S <=2 F Gentamicin S <=2 F Susceptible <=2 , Intermediate >2 , Resistant >4 Trimeth sulfameth S <=0.5 F Ciprofloxacin S <=0.25 F Susceptible <0.5 , Intermediate >=.5 , Resistant >=1 Nitrofurantoin S <=16 F Susceptible <=32 , Intermediate >32 , Resistant >64 Performed By: #### 630-4 ### # [facility] CLIA [id number] [address] [place] [address] [place] URINALYSIS COMPLETE PNL UR Collected: 12/28/2024 5:31 PM Status: F Source: [facility] Order Comment: Specimen Type : URINE SPECIMEN Ordering Facility: [facility] Address: [address] [place] [address] TYPE CODE TESTS RESULT OUT OF RANGE REFERENCE UNITS LAB 5778-6(LOINC) Color Ur Light Yellow yellow LAB 23762-9(LOINC) Clarity Spec Clear Clear LAB 5792-7(LOINC) Glucose Ur Strip-mCnc Negative Trace, Negative LAB 5770-3(LOINC) Bilirub Ur Ql Strip Negative Negative LAB 2514-8(LOINC) Ketones Ur Strip Trace Negative, Trace LAB 5811-5(LOINC) Sp Gr Ur Strip 1.018 1.005-1.030 LAB 5794-3(LOINC) Hgb Ur Ql Strip 1+ Abnormal Negative, Trace LAB 5803-2(LOINC) pH Ur Strip 6.0 5.0-8.0 LAB 5804-0(LOINC) Prot Ur Strip-mCnc Trace Trace, Negative LAB 5818-0(LOINC) Urobilinogen Ur Strip Normal Normal LAB 5802-4(LOINC) Nitrite Ur Ql Strip Negative Negative LAB 5799-2(LOINC) Leukocyte esterase Ur Ql Strip 75 Cady/uL Abnormal Negative, 25 Cady/uL LAB 5821-4(LOINC) WBC #/area UrnS HPF 11-25 /HPF Abnormal 0-5 /HPF LAB 52175-5(LOINC) RBC #/area UrnS HPF 11-25 /HPF Abnormal 0-3 /HPF LAB 5787-7(LOINC) Epi Cells #/area UrnS HPF Few /HPF Result Comment: Few Performed By: #### 99175-4 # ### [facility] CLIA [id number] [address] [facility] OSMOLALITY SERPL Collected: 12/28/2024 5:15 PM Statu s: F Source: [facility] Order Comment: Specimen Type : BLOOD SPECIMEN Ordering Facility: [facility] Address: [address] [place] [id number] TYPE CODE TESTS RESULT OUT OF RANGE REFERENCE UNITS LAB 2692-2(LOINC) Osmolality SerPl 292 275-300 mOsm/kg Performed By: #### 2692-2 ## ## [facility] CLIA [id number] [address] BACTERIA BLD CULT Observed: 12/28/2024 5:15 PM Status: F Source: [facility] CULTURE, BLOOD: No growth 5 days Performed By: #### 600-7 ### # [facility] CLIA [id number] [address] BACTERIA BLD CULT Observed: 12/28/2024 5:15 PM Status: F Source: [facility] CULTURE, BLOOD: No growth 5 days Performed By: #### 600-7 ### # [facility] CLIA [id number] [address] ARTERIAL BLOOD GASES Collected: 5:00 PM Status: F Source: [facility] Order Comment: Specimen Type : ARTERIAL BLOOD SPECIMEN Ordering Facility: [facility] Address: [address] [place] [address] TYPE CODE TESTS RESULT OUT OF RANGE REFERENCE UNITS LAB 21013-4(LOINC) pH Bld 7.51 High 7.35-7.45 LAB 94770-6(LOINC) pH temp adj Bld 7.49 High 7.35-7.45 LAB 59047-4(LOINC) pCO2 Bld 29 Low 36-46 mm Hg LAB 14187-8(LOINC) pCO2 temp adj Bld 30 Low 36-46 mmHg LAB 82456-8(LOINC) pO2 Bld 65 Low 85-95 mm Hg LAB 84452-2(LOINC) pO2 temp adj Bld 70 Low 85-95 mmHg LAB 1959-6(LOINC) HCO3 Bld-sCnc 23 22-26 mmol /L LAB 2708-6(LOINC) SaO2 % BldA 94 Low 95-98 % LAB 67120-2(LOINC) Base excess Bld Calc-sCnc 1 0-2 mmol/L LAB 2714-4(LOINC) OxyHgb MFr BldA 93 Low 95-98 % LAB 2030-5(LOINC) COHgb MFr BldA 1.2 0.0-2.0 % Result Comment: Carboxyhemog lobin Reference Range for Smokers: 2.0-8.0% LAB 2614-6([facility]) MetHgb MFr Bld 0.7 0.0-1.5 % LAB 2947-0([facility]) Sodium Bld-sCnc 131 Low 136-144 mmol/L LAB 6298-4([facility]) Potassium Bld-sCnc 3.9 3.5-5.0 mmol/L LAB CHLWBBG CHLORIDE WHOLE BLOOD 105 97-105 mmol/L LAB 48320-3([facility]) Ca-I BldV-mCnc 1.23 1.08-1.30 mmol/L LAB 93197-6([facility]) Ca-I adj pH7.4 BldA-sCnc 1.30 1.08-1.30 mmol/L LAB 2339-0([facility]) Glucose Bld-mCnc 116 High 60-105 mg/dL LAB 24872-8([facility]) Lactate Bld-sCnc 0.9 0.5-2.2 mmol/L LAB 718-7([facility]) Hgb Bld-mCnc 12.7 11.5-15.5 g/dL LAB 4544-3([facility]) Hct VFr Bld Auto 39.1 36.0-46.0 % LAB VTMP TEMPERATURE, BODY 38.0 C LAB VO2TH O2 THERAPY RA=Room Air LAB [id number] PO2 / FIO2 RATIO 310 >300 mmHg Performed By: #### ALLBG ### # [facility] CLIA [id number] [address] HIGH SENSITIVITY TROPONIN T Collected: 12/28/2024 5:0 0 PM Status: F Source: [facility] Order Comment: Specimen Type : BLOOD SPECIMEN Ordering Facility: [facility] Address: [address] [place] [address] TYPE CODE TESTS RESULT OUT OF RANGE REFERENCE UNITS LAB 74911-2([facility]) Troponin T SerPl HS-mCnc 35 High <12 ng/L Performed By: #### HSTNT ### # [facility] CLIA [id number] [address] XR CHEST 1V FRONTAL Observed: 12/28/2024 4:39 PM Status: F Source: [facility] * * *Final Report* * * DATE OF EXAM: Dec 28 2024 4:39PM AKX 5290 - XR CHEST 1V FRONTAL / PROCEDURE REASON: Pneumothorax * * * * Physician Interpretation * * * * EXAMINATION: CHEST RADIOGRAPH (SINGLE VIEW AP OR PA) CLINICAL HISTORY: Pneumothorax MQ: XC1_5 Comparison: 12/28/2024 at 0322 hours RESULT: Lines, tubes, and devices: Left chest tube remains present, similar in position compared to the prior study. Cardiac monitoring leads also remain present. Lungs and pleura: Mild basilar atelectasis or scarring. Mild, generalized interstitial prominence which is nonspecific. Possible small pleural effusions. No pneumothorax identified. Cardiomediastinal silhouette: Stable cardiomediastinal silhouette. Other: Left rib fractures. IMPRESSION: Largely stable appearance of the chest given differences in technique and positioning. Cloud Subject Matter Expert: ANA Transcribe Date/Time: Dec 28 2024 4:40P Dictated by : VIDYA BUSTILLO MD This examination was interpreted and the report reviewed and electronically signed by: VIDYA BUSTILLO MD on Dec 28 2024 4:42PM EST [id number] OSMOLALITY UR Collected: 12/28/2024 4:31 PM Status: F Source: [facility] Order Comment: Specimen Type : URINE SPECIMEN Ordering Facility: [facility] Address: [address] [place] [address] TYPE CODE TESTS RESULT OUT OF RANGE REFERENCE UNITS LAB 2695-5(LOINC) Osmolality Ur 688 50-1200 mOsm /kg Performed By: #### 2695-5, 3 5674-1, 56198-6 #### [facility] CLIA [id number] [address] [place] [address] [place] ?TM UR-MCNC Collected: 12/28/2024 4:31 PM Stat us: F Source: [facility] Order Comment: Specimen Type : URINE SPECIMEN Ordering Facility: [facility] Address: [address] [place] [address] TYPE CODE TESTS RESULT OUT OF RANGE REFERENCE UNITS LAB 2161-8(LOINC) Creat Ur-mCnc 104.5 42.2-237.9 m g/dL Performed By: #### 2695-5, 3 5674-1, 17465-7 #### [facility] CLIA [id number] [address] [place] ?TM UR-SCNC Collected: 12/28/2024 4:31 PM Sta tus: F Source: [facility] Order Comment: Specimen Type : URINE SPECIMEN Ordering Facility: [facility] Address: [facility] [place] [address] TYPE CODE TESTS RESULT OUT OF RANGE REFERENCE UNITS LAB 92649-8(LOINC) Sodium ?Tm Ur-sCnc 33 14-216 mmol/L Performed By: #### 2695-5, 3 5674-1, 77916-7 #### [facility] CLIA [id number] [address] PROGRESS Observed: 12/28/2024 4:19 PM Status: COMPLETED Source: [facility] HNO ID: [id number] Author: GIULIA COPELAND MD Service: General Surgery Author Type: Resident Type: Progress Notes Filed: 12/29/2024 10:38 Note Text: Attestation signed by Giulia Copeland MD at 12/29/2024 10:38 AM I personally saw and examined the patient on 12/28. I reviewed the resident's note. I agree with the resident's assessment and plan unless otherwise noted. Trauma Surgery Progress Note SERVICE DATE: 12/28/2024 Trauma Service Pager: For questions or concerns Mon-Fri 6a-5p please page [phone]. After 5pm and on Weekends and Holidays, please page [phone] if in ICU or [phone] if on RNF.SUBJECTIVE: Patient doing well this morning. She is much more alert and following commands. Denies chest pain or shortness of breath. Chest tube with no airleak, SS output OBJECTIVE: Vitals: Temp (24hrs), Av.8 ?C (98.2 ?F), Min:36.6 ?C (97.9 ?F), Max:37 ?C (98.6 ?F) BP 112/98 Pulse 101 Temp 36.6 ?C (97.9 ?F) Resp 17 Ht 156.2 cm (5' 1.5") Wt 62.2 kg (137 lb 2 oz) SpO2 98% BMI 25.49 kg/m? O2 Therapy: Room Air IANDO: Date 12/27/24 1500 - 12/28/24 0659 12/28/24 0700 - 12/29/24 0659 Shift 1741-7368 1470-1736 24 Hour Total 0273-9412 3771-5172 6170-0467 24 Hour Total INTAKE PO 120 120 PO 120 120 IV 200 Volume (mL) (magnesium sulfate iv piggyback in sterile water 2 g 50 mL) 100 Volume (mL) (calcium gluconate iv piggyback 2 g in NaCl (iso-osmotic) 100 mL) 100 Shift Total 120 320 OUTPUT Urine 152 931 8303 Void (ml) 100 150 700 Straight cath (ml) 725 725 Urine Not Saved. 2 x Chest Tube 30 50 250 100 100 Chest Tube Output (Chest Tube 12/26/24 2130 Left Lateral Tube #1) 30 50 250 100 100 # of BMs Number of BMs 0 x Shift Total 201 655 1995 100 100 Weight (kg) 60.5 62.2 62.2 62.2 62.2 62.2 62.2 MEDICATIONS: Current Facility-Administered Medications Medication Dose Route Frequency polyethylene glycol 3350 17 g packet 17 g ORAL DAILY NaCl 0.9% 500 mL iv bolus 500 mL INTRAVENOUS ONCE folic acid 1 mg tab(s) 1 mg ORAL DAILY PHENobarbital 32.4 mg tab(s) 32.4 mg ORAL/FEEDING TUBE q 12 H enoxaparin 30 mg injection (LOVENOX) 30 mg SUBCUTANEOUS q 12 HR lidocaine 4 % 2 patch (SALONPAS) 2 patch TRANSDERMAL DAILY And lidocaine patch - REMOVE OTHER AT BEDTIME And lidocaine - VERIFY PATCH OTHER q 8 H ipratropium-albuterol 3 mL nebulizer solution (DUONEB) 3 mL INHALATION q 6 H PRN acetaminophen 1,000 mg tab(s) (TYLENOL) 1,000 mg ORAL q 8 H phosphorus 250 mg tab(s) (K PHOS NEUTRAL) 250 mg ORAL PC and HS senna-docusate 8.6-50 mg 1 tablet (SENNA-S) 1 tablet ORAL BID haloperidol lactate 2 mg short-acting injection (HALDOL) 2 mg INTRAVENOUS q 6 H PRN budesonide, enteric coated 9 mg cap(s) (ENTOCORT EC) 9 mg ORAL DAILY cetirizine 10 mg tab(s) (ZYRTEC) 10 mg ORAL DAILY metoprolol tartrate (short acting) 12.5 mg tab(s) (LOPRESSOR) 12.5 mg ORAL q 12 H rosuvastatin 10 mg tab(s) (CRESTOR) 10 mg ORAL AT BEDTIME gabapentin 200 mg cap(s) (NEURONTIN) 200 mg ORAL q 8 H NaCl 0.9% iv flush bag 20 mL INTRAVENOUS PRN ondansetron 4 mg tab(s) (ZOFRAN) 4 mg ORAL q 6 H PRN Or ondansetron (PF) 4 mg injection (ZOFRAN) 4 mg INTRAVENOUS q 6 H PRN oxyCODONE IR 2.5-5 mg tab(s) (ROXICODONE) 2.5-5 mg ORAL q 4 H PRN thiamine 200 mg injection 200 mg INTRAVENOUS q 8 H Labs: Recent Labs 12/28/24 1301 12/28/24 0258 12/27/24 0249 12/26/24 2000 12/26/24 1426 12/26/24 1253 0000 NA 132* 130* 134* -- 139 -- < > K -- 4.4 4.0 -- 3.9 -- < > CHLOR 99 101 103 -- 105 -- < > CO2 22 21* 21* -- 21* -- < > BUN 25* 25* 17 -- 16 -- < > CREAT 0.93 0.80 0.65 -- 0.73 -- < > GLUC 158* 135* 159* -- 106* -- < > ANION 11 8 10 -- 13 -- < > CA 8.4* 8.4* 7.4* -- 8.3* -- < > MG -- 2.7* 1.7 -- -- -- -- P -- 3.9 3.6 -- -- -- -- ALB -- -- -- -- 3.9 -- -- AST -- -- -- -- 68* -- -- ALT -- -- -- -- 55* -- -- ALKPHOS -- -- -- -- 74 -- -- TBILI -- -- -- -- 0.5 -- -- WBC -- 11.93* 5.17 < > 6.74 -- -- HB -- 13.2 11.1* < > 12.5 -- -- HCT -- 38.9 32.7* < > 36.5 -- -- PLT -- 157 110* < > 127* -- -- LACT -- -- -- -- 0.9 1.2 -- INR -- -- -- -- 1.0 -- -- < > = values in this interval not displayed. PHYSICAL EXAM: GENERAL: Alert. No distress. Resting comfortably. NEURO: AANDOx3. No focal neurologic deficits. Sensation grossly intact. HEENT: Normocephalic. Atraumatic. EOMI. LUNGS: Unlabored breathing. Equal excursion bilaterally. CT to -20 sxn, initial AL with return to sxn but none afterwards, 450cc SS CARDIAC: Regular rate. Good perfusion throughout. ABDOMEN: Soft, non-tender, non-distended. No rebound or guarding. EXTREMITIES: BRAGA. No deformities. SKIN: No obvious jaundice or pallor. ASSESSMENT AND PLAN: Assessment Active Hospital Problems Diagnosis Date Noted Pneumothorax 12/26/2024 Posttraumatic respiratory insufficiency 12/27/2024 Fall 12/26/2024 Closed fracture of multiple ribs of left side 12/26/2024 Hemopneumothorax on left 12/26/2024 Alcohol use 12/26/2024 Type 2 diabetes (HCC) 12/26/2024 Chronic IBS (irritable bowel syndrome) 12/26/2024 Chronic History of stroke 2013 Chronic History of cholecystectomy 2009 Chronic 79 year old female s/p reported GLF @ home on 12/26/2024 with history of ETOH abuse (possibly on ASA and/or Plavix) Imaging performed: 12/26/2024 - CT HNCAP @ [place], CXR @ [facility] Traumatic Injuries: Left 6-9 rib fractures with associated hemopneumothorax and subcutaneous emphysema Operations/Procedures: 1. 12/26- Serratus block and L CT placement Care Plan: Multiple left rib fractures, hemopneumothorax, subQ emphysema CT placed 12/26 250cc SS output over past 24 hr Placed to WS today dCXR: stable chest, no measurable PTX Aggressive pulmonary hygiene Multimodal pain control Plavix held H/O ETOH abuse Patient admits to daily wine consumption, EtOH <11 on intake and UDS showing no other illicit drugs Received phenobarbital and Ativan @ [place] Received second dose of phenobarbital on arrival to [facility] CIWA scoring On phenobarb taper Thiamine supplementation Social work consult Hyponatremia Na 130 this AM, rpt this afternoon now at 132 Cont to monitor, currently asymptomatic Leukocytosis WBC 11.93 from 5.17 Cont to monitor, afebrile and no overt signs of infection Stable for RNF Current diet order: DIET REGULAR Pain regimen: Tylenol, prn oxycodone, morphine Bowel regimen: N/A Labs: Daily CBC, BMP, Mag, Phos, Ica2+ PPX: DVT: LVX chemo ppx; SCDs Ulcer: NA Vit D level if > 65 yo: 46.4 (WNL) Consulted Services: SICU Trauma Dispo Planning: PT/OT recs pending. Case management following. Incidentals: N/A Assessment and plan d/w Dr. Copeland. SIGNATURE: Sarah Bell DO PATIENT NAME: Cristino Verdugo DATE: 12/28/2024 TIME: 4:19 PM Pager: see below Trauma Service Pager: For questions or concerns Mon-Fri 6a-5p please page [phone]. After 5pm and on Weekends and Holidays, please page [phone] if in ICU or [phone] if on RNF. THERAPY NT Observed: 12/28/2024 4:12 PM Status: COMPLETED Source: [facility] HNO ID: [id number] Author: JAMIE ALBERTO, PT Service: Physical Therapy Author Type: Physical Therapist Type: Therapy (PT/OT/Speech/Resp) Filed: 12/28/2024 16:13 Note Text: Physical Therapy Evaluation Summary SERVICE DATE: 12/28/2024 SERVICE TIME: 1500 to 1525 ROOM: [id number] PT 6 Clicks Score: 13 DISCHARGE RECOMMENDATIONS Subacute/SNF Recommended Discharge Disposition Comments: Fall risk and poor activity tolerance ASSESSMENT Response to Therapy Interventions: Good Participation in Activities Patient seen for physical therapy session and out of the ICU. She is able to get up and walk with a walker and required continual assistance and direction to stay within the walker frame and use the walker properly as well as to avoid obstacles. After session her heart rate was elevated and remains elevated RN and MD are aware. PRECAUTIONS Fall Risk CURRENT HOSPITAL COURSE Patient had a fall was transferred from [place] [address] admitted to the ICU has rib fractures on the left side hemopneumothorax emphysema chest tube Relevant Past Medical History: etoh abuse, fibro HOME LIVING Patient Lives With: Family Assistance Available: Other: See Comment Comments: 2 PRIOR FUNCTIONAL LEVEL Within Functional Limits indep at home no AD lives with son SUBJECTIVE Agrees to session, plesantly confused THERAPY DIAGNOSIS Reduced mobility-other, Muscle Weakness (generalized), Abnormalities of gait and mobility-other TREATMENT INTERVENTIONS Evaluation, Gait Training (92488) Timed Code Treatment (minutes): 10 Skilled Treatment Time (minutes): 25 $ Evaluation-Moderate (51676) Billed Units: 1 unit Gait Training (99315) Treatment Minutes: 10 $ Gait Training (42100) Billed Units: 1 unit Skilled Intervention(s): Instruction in sit to stand technique with proper hand placement and body positioning at edge of the bed, pushing from mattress with one hand on the walker and one hand on the bed and tucking feet back to stand with nose over toes. Instruction in stand to sit technique with LE's touching the bed, reaching back for the mattress or bedrail and slowly sitting. Instruction in use of equipment, cues for sequence and pattern with the walker. Cued to keep it closer and to stand up tall and look up not at the floor. And to keep hands on the walker at all times. Instructed on navigating around obstacles was assisted to make alternatives to stay within the walker frame. Had difficulty getting along with her left arm due to rib pain. TRAINING AND EDUCATION PROVIDED Assistive Device Use, Bed Mobility, Benefits of In-Hospital Mobility THERAPEUTIC SKILLS USED Activity Dosing, Cuing Tactile, Cuing Verbal FUNCTIONAL STATUS Bed Mobility Supine To Sit: Minimal Assistance Sit to Supine: Minimal Assistance Transfers Sit To Stand: Moderate Assistance Stand To Sit: Moderate Assistance Bed to Chair Gait Minimal Assistance Gait Device: Wheeled Walker General Deviations/Observations: Rkael decreased, UE weight bearing on assistive device excessive, Improper distancing from assistive device, Visual scanning/environmental awareness decreased, Path Deviation Gait Distance (feet): 45 x 2 Stairs RANGE OF MOTION WFL STRENGTH Left arm limited due to pain BALANCE Static Sitting Balance: Good Dynamic Sitting Balance: Good Static Standing Balance: Fair Dynamic Standing Balance: Fair GOALS Able to Perform HEP with: Independent Transfer Supine to/from Sit with: Independent Transfer Sit to/from Stand with: Independent Ambulate with: Independent Distance: 50 Device: Wheeled Walker Rehab Potential: Fair Fair Rehab Potential Due To: Multiple co- morbidities ACUTE CARE TREATMENT PLAN PT Frequency: 3 Times Per Week (1-3) Treatment Interventions: Education, Strengthening, Functional Mobility Training, Balance Training SIGNATURE: Jamie Alberto PT PATIENT NAME: Cristino Verdugo DATE: December 28, 2024 TIME: 4:12 PM PLAN OF CARE Observed: 12/28/2024 3:51 PM Status: COMPLETED Source: [facility] HNO ID: [id number] Author: HADLEY HARMON DO Service: General Surgery Author Type: Resident Type: Plan of Care Filed: 12/28/2024 15:52 Note Text: SICU plan of care Pt currently in SVT with rates of 140 - otherwise asymptomatic. Given rate, will continue to treat here in the ICU. Subsequently d/c'ing transfer orders for now. Hadley Harmon DO 12/28/2024 3:52 PM SICU Service Pager: For questions or concerns Mon-Fri 6a-5p please page [phone]. After 5pm and on Weekends and Holidays, please page [phone]. ECG COMPLETE Observed: 12/28/2024 2:54 PM Status: F Source: [facility] Ventricular Rate : 139 BPM Atrial Rate : 139 BPM P-R Interval : 172 ms QRS Duration : 84 ms Q-T Interval : 284 ms QTC Calculation(Bazett) : 432 ms Calculated R [place] : -6 degrees Calculated T [place] : 68 degrees SINUS TACHYCARDIA LEFT VENTRICULAR HYPERTROPHY WITH REPOLARIZATION ABNORMALITY ( R in aVL , Darin product ) ABNORMAL ECG WHEN COMPARED WITH ECG OF 27-Dec-2024 17:06, T WAVE INVERSION NOW EVIDENT IN INFERIOR LEADS Confirmed by MD ACUNA DAVID ([id number]) on 12/31/2024 11:32:24 AM NAME : CRISTINO MATA PID : [id number] : 1945 Gender : Female Race : ORD : [id number] Procedure Date : Dec 28 2024 14:54:57 Edit Date : Dec 31 2024 11:32:26 Diagnosis: SINUS TACHYCARDIA LEFT VENTRICULAR HYPERTROPHY WITH REPOLARIZATION ABNORMALITY ( R in aVL , Darin product ) ABNORMAL ECG WHEN COMPARED WITH ECG OF 27-Dec-2024 17:06, T WAVE INVERSION NOW EVIDENT IN INFERIOR LEADS Confirmed by MD ACUNA DAVID ([id number]) on 12/31/2024 11:32:24 AM Test Reason : Arrhythmia Location : [address] : [place] [address] Overread By : MD ACUNA DAVID Edited By : MD ACUNA DAVID Referred By : , Acquired by : EDY FRANCIS BAS METAB 1999 PNL SERPL Collected: 1:01 PM Status: F Source: [facility] Order Comment: Specimen Type : BLOOD SPECIMEN Ordering Facility: [facility] Address: [address] [place] [address] TYPE CODE TESTS RESULT OUT OF RANGE REFERENCE UNITS LAB 2345-7(LOINC) Glucose SerPl-mCnc 158 High 74-99 mg/dL Result Comment: The [place] Diabetes Association (ADA) provides guidance for cutoff values for fasting glucose and random glucose. The ADA defines fasting as no caloric intake for at least 8 hours. Fasting plasma glucose results between 100 to 125 mg/dL indicate increased risk for diabetes (prediabetes). Fasting plasma glucose results greater than or equal to 126 mg/dL meet the criteria for diagnosis of diabetes. In the absence of unequivocal hyperglycemia, results should be confirmed by repeat testing. In a patient with classic symptoms of hyperglycemia or hyperglycemic crisis, random plasma glucose results greater than or equal to 200 mg/dL meet the criteria for diagnosis of diabetes. Reference: Standards of Medical Care in Diabetes 2016, [place] Diabetes Association. Diabetes Care. 2016.39(Suppl 1). LAB 3094-0(LOINC) BUN SerPl-mCnc 25 High 7-21 mg/dL LAB 2160-0(LOINC) Creat SerPl-mCnc 0.93 0.58-0.96 mg/dL LAB 2951-2(LOINC) Sodium SerPl-sCnc 132 Low 136-144 mmol/L LAB 2823-3(LOINC) Potassium SerPl-sCnc Result Comment: Unable to as say due to interference from hemolysis. Suggest reorder as clinically indicated. LAB 2075-0(LOINC) Chloride SerPl-sCnc 99 98-107 mmol/L LAB 202-9(LOINC) CO2 SerPl-sCnc 22 22-30 mmol/L LAB 1863-0(LOINC) Anion Gap4 SerPl-sCnc 11 8-15 mmol/L LAB 15570-1(LOINC) Calcium SerPl-mCnc 8.4 Low 8.5-10.2 mg/dL LAB 73910-8(LOINC) eGFRcr SerPlBld CKD-EPI 2020 63 >=60 mL/min/1. 73m??? Result Comment: Estimated Gl omerular Filtration Rate (eGFR) is calculated using the 2020 CKD-EPI creatinine equation. This equation utilizes serum creatinine, sex, and age as parameters. The creatinine assay has traceable calibration to isotope dilution-mass spectrometry. Refer to KDIGO guidelines for clinical interpretation. In patients with unstable renal function, e.g. those with acute kidney injury, the eGFR may not accurately reflect actual GFR. Performed By: #### 56085-1 # ### [facility] CLIA [id number] [address] STATES OF [facility] PROGRESS Observed: 12/28/2024 4:48 AM Status: COMPLETED Source: [facility] HNO ID: [id number] Author: WALLACE DEAN MD Service: General Surgery Author Type: Resident Type: Progress Notes Filed: 12/28/2024 10:47 Note Text: Attestation signed by Wallace Dean MD at 12/28/2024 10:47 AM (Updated) Supervision of Medical Student Attestation Note I verified the medical student?s documentation in the medical record. I personally performed a physical exam and medical decision making. I made appropriate changes to the documentation and the assessment and plan based on my verification, exam and medical decision making Signature: Wallace Dean MD Date: 12/28/2024 Time: 10:33 AM Plan of care: -Chest tube to water seal -stable for transfer to [facility] -hyponatremia, recheck BMP at 2pm -monitor for worsening leukocytosis, no fevers I provided less than 30 minutes of critical care services which were necessary due to above specified injuries and illnesses. This patient has a high probability of sudden, clinical significant deterioration, which required the highest level of care and preparedness to intervene urgently. I managed and supervised life or organ supporting interventions that require frequent assessments. This time does not include time devoted to teaching and to any procedure I billed separately. I have personally seen and examined this patient and participated in the robbins components of this encounter with the multi-disciplinary ICU team. I discussed the management of this case with the resident and reviewed/confirmed their documentation, attached or in separate note. I personally reviewed today's actual images, the associated image reports, and current labs. I supervised the ordering of additional testing, imaging, labs, and/or consultations. The patient and/or family were fully informed of the findings and plan of care. They had the opportunity to ask questions and raise any issues of concern, all of which were answered and dealt with by me to their stated satisfaction. The critical care treatment was mainly directed to address the following current issues: Active Hospital Problems Diagnosis Date Noted Pneumothorax 12/26/2024 Posttraumatic respiratory insufficiency 12/27/2024 Fall 12/26/2024 Closed fracture of multiple ribs of left side 12/26/2024 Hemopneumothorax on left 12/26/2024 Alcohol use 12/26/2024 Type 2 diabetes (HCC) 12/26/2024 Chronic IBS (irritable bowel syndrome) 12/26/2024 Chronic History of stroke 2013 Chronic History of cholecystectomy 2008 Chronic Management included sedation, pain control and ventilation assessment including need for ventilator, weaning and/or extubation as indicated. Management of critical care illnesses are edited above by me, including system by system plan and are not only limited to infectious disease and tailoring the antibiotic therapy, nutrition assessment and supplementation, electrolyte correction and prevention of ICU related complications using ventilator bundle, sedation holiday and assessment and removal of lines and tubes where indicated. SIGNATURE: Wallace Dean MD PATIENT NAME: Cristino Verdugo DATE: December 28, 2024 TIME: 10:33 AM ICU Checklist Last Documented/Reviewed time: 12/28/2024 9:23 AM ICU Consent Complete?: Yes ICU Code Status "History assess/Full code by default: No, active code status present A= Assess, Prevent, Manage Pain Pain adequately controlled?: Yes C= Choice of Sedation and Analgesia RASS at Goal?: Yes B= Both Spontaneous Awakening and Breathing Trials Ventilator: None D= Delirium: Assess, Prevent and Manage ICU Delirium Status: CAM Positive - existing, continue interventions Sleep adequate?: Yes Restraint Status: None E= Early Mobility/Excercise ICU Mobility: ICU Mobility Goal: Sit at edge of bed, Move to chair, PT/OT consult ordered, Walk, Stand F= Family Engagement and Empowerment ICU plan of care visit at bedside in last 24 hours: Yes, Provider, RN, Patient/ designee ICU Disposition: ICU Disposition-POC Detail: To be determined Prevention: Line Status: None [place] Status: None Pressure Injury Status: None GI/Stress Ulcer Prophylaxis: None - not required Nutrition is at Goal: Yes VTE Prophylaxis: Chemoprophylaxis: Low Molecular Wt Heparin INPATIENT SICU PROGRESS NOTE Resident Supervision of Medical Student I personally saw and examined the patient. I reviewed the medical student's note. I agree with the medical student's assessment and plan unless otherwise noted below. - Patient stable for RNF - Morning CXR stable - Awaiting PT/OT Signature: Rosetta Hurtado MD Date: 12/28/2024 Time: 8:55 AM SERVICE DATE: 12/28/2024 SERVICE TIME: 4:50 AM Subjective Patient seen and examined this morning, states that she is not doing well due to pain on the left side of her chest. Says that she has not had a bowel movement. Denies nausea, emesis, and bloating. Pt is drowsy in setting of phenobarb taper. Current Facility-Administered Medications Medication Dose Route Frequency NaCl 0.9% iv flush bag 20 mL INTRAVENOUS PRN ondansetron 4 mg tab(s) (ZOFRAN) 4 mg ORAL q 6 H PRN Or ondansetron (PF) 4 mg injection (ZOFRAN) 4 mg INTRAVENOUS q 6 H PRN oxyCODONE IR 2.5-5 mg tab(s) (ROXICODONE) 2.5-5 mg ORAL q 4 H PRN thiamine 200 mg injection 200 mg INTRAVENOUS q 8 H Followed by [START ON 12/29/2024] thiamine 100 mg tab(s) (VITAMIN B1) 100 mg ORAL/FEEDING TUBE TID folic acid 1 mg tab(s) 1 mg ORAL DAILY PHENobarbital 32.4 mg tab(s) 32.4 mg ORAL/FEEDING TUBE q 12 H Followed by [START ON 12/29/2024] PHENobarbital 32.4 mg tab(s) 32.4 mg ORAL/FEEDING TUBE q 24 H enoxaparin 30 mg injection (LOVENOX) 30 mg SUBCUTANEOUS q 12 HR lidocaine 4 % 2 patch (SALONPAS) 2 patch TRANSDERMAL DAILY And lidocaine patch - REMOVE OTHER AT BEDTIME And lidocaine - VERIFY PATCH OTHER q 8 H ipratropium-albuterol 3 mL nebulizer solution (DUONEB) 3 mL INHALATION q 6 H PRN acetaminophen 1,000 mg tab(s) (TYLENOL) 1,000 mg ORAL q 8 H phosphorus 250 mg tab(s) (K PHOS NEUTRAL) 250 mg ORAL PC and HS senna-docusate 8.6-50 mg 1 tablet (SENNA-S) 1 tablet ORAL BID haloperidol lactate 2 mg short-acting injection (HALDOL) 2 mg INTRAVENOUS q 6 H PRN budesonide, enteric coated 9 mg cap(s) (ENTOCORT EC) 9 mg ORAL DAILY cetirizine 10 mg tab(s) (ZYRTEC) 10 mg ORAL DAILY metoprolol tartrate (short acting) 12.5 mg tab(s) (LOPRESSOR) 12.5 mg ORAL q 12 H rosuvastatin 10 mg tab(s) (CRESTOR) 10 mg ORAL AT BEDTIME morphine 4 mg injection 4 mg INTRAVENOUS q 4 H PRN gabapentin 200 mg cap(s) (NEURONTIN) 200 mg ORAL q 8 H Objective VITAL SIGNS BP 89/54 Pulse 109 Temp (Src) 98.2 (Oral) Resp 23 Ht 5' 1.496" (1.56m) Wt 137 lb 2 oz (62.2kg) SpO2 98% BMI 25.49 kg/(m2). O2 Therapy: Room Air, Liters (Numeric Only): 2 Temp (24hrs), Av.7 ?C (98 ?F), Min:36.2 ?C (97.2 ?F), Max:37 ?C (98.6 ?F) Date 12/27/24 07 - 12/28/24 0659 12/28/24 07 - 12/29/24 0659 Shift 3528-9651 6138-5434 1433-1328 24 Hour Total 1369-6370 9020-5161 8112-4577 24 Hour Total INTAKE PO 120 120 PO 120 120 IV 200 200 Volume (mL) (magnesium sulfate iv piggyback in sterile water 2 g 50 mL) 100 100 Volume (mL) (calcium gluconate iv piggyback 2 g in NaCl (iso-osmotic) 100 mL) 100 100 Shift Total 200 120 320 OUTPUT Urine 450 787 991 8423 Void (ml) 450 100 150 700 Straight cath (ml) 725 725 Urine Not Saved. 2 x 2 x Chest Tube 170 30 200 Chest Tube Output (Chest Tube 12/26/24 2130 Left Lateral Tube #1) 170 30 200 # of BMs Number of BMs 0 x 0 x Shift Total 620 831 887 0841 Weight (kg) 60.5 60.5 62.2 62.2 62.2 62.2 62.2 62.2 PHYSICAL EXAM: GENERAL: Alert. No distress. Resting uncomfortably. NEURO: AANDOx3. No focal neurologic deficits. Sensation grossly intact. Attention is waxing and waning HEENT: Normocephalic. Atraumatic. EOMI. LUNGS: Unlabored breathing. Equal excursion bilaterally. Chest tube in place with an output of 250 sanguineous fluid. No air leak appreciated. CARDIAC: Tachycardic, on tele, Good perfusion throughout. ABDOMEN: Soft, non-tender, non-distended. No rebound or guarding. EXTREMITIES: BRAGA. No deformities. Peripheral lines in place upper extremities. SKIN: No obvious jaundice or pallor. DATA: Diagnostic tests reviewed for today's visit: No results for input(s): "BODSITE", "CTYPE", "PH", "PCO2", "PO2", "BE", "HCO3", "CO2CT", "O2HB", "COHB", "MHGB", "TEMP", "PHTC", "PCO2T", "PO2T", "O2AD" in the last 72 hours. Recent Labs 12/28/24 0258 12/27/24 0249 12/26/24 2000 12/26/24 1426 12/26/24 1253 CREAT 0.80 0.65 -- 0.73 -- BUN 25* 17 -- 16 -- NA 130* 134* -- 139 -- K 4.4 4.0 -- 3.9 -- CHLOR 101 103 -- 105 -- CO2 21* 21* -- 21* -- ANION 8 10 -- 13 -- GLUC 135* 159* -- 106* -- CA 8.4* 7.4* -- 8.3* -- P 3.9 3.6 -- -- -- MG 2.7* 1.7 -- -- -- ALB -- -- -- 3.9 -- AST -- -- -- 68* -- ALT -- -- -- 55* -- ALKPHOS -- -- -- 74 -- TBILI -- -- -- 0.5 -- WBC 11.93* 5.17 5.70 6.74 -- HB 13.2 11.1* 12.5 12.5 -- HCT 38.9 32.7* 36.2 36.5 -- PLT 157 110* 108* 127* -- LACT -- -- -- 0.9 1.2 Assessment AND Plan ACTIVE PROBLEM LIST Fall Closed Fracture of Multiple Ribs of Left Side Hemopneumothorax On Left Alcohol Use Pneumothorax Fibromyalgia Type 2 Diabetes (Hcc) History of Stroke History of Cholecystectomy Ibs (Irritable Bowel Syndrome) Posttraumatic Respiratory Insufficiency Assessment 79 year old female with limited PMH for review, reported alcohol abuse, GERD, HTN, IBS and possible aspirin/Plavix use who presents to [facility] as a transfer from [place] for treatment of injuries sustained during a reported fall. Hospital course: 12/26: transfer from [place]. Admitted to ICU 12/27: stable for RNF Neuro: - AANDOX3 drowsy in setting of phenobarb taper - pain: scheduled tylenol, lidocaine patches, PRN oxy - nausea prn - Haldol PRN (not used) AUD: - Phenobarb taper - Thiamine supplementation - Gabapentin 200 mg TID CV: - Home Plavix held - On LVX 30 mg SubQ BID - On home lopressor, statin - Tele - EKG as indcated Resp: - 98% on O2 Therapy: Room Air Multiple left rib fractures, hemopneumothorax, subQ emphysema: - CXR Findings 12/28/24: Stable appearance of the chest - Chest tube: output 250 sanguineous. - Pulling 750 IS GI: - DIET REGULAR - Tolerating diet - Bowel Regimen: Senna - GI ppx: None - No bowel movements Renal: - Cr: 0.8 - Urine output: 1,425 mL - strict Is/Os - electrolyte replacement per unit protocol Creatinine Date Value Ref Range Status 12/28/2024 0.80 0.58 - 0.96 mg/dL Final 12/27/2024 0.65 0.58 - 0.96 mg/dL Final 12/26/2024 0.73 0.58 - 0.96 mg/dL Final Magnesium Date Value Ref Range Status 12/28/2024 2.7 (H) 1.7 - 2.3 mg/dL Final Potassium Date Value Ref Range Status 12/28/2024 4.4 3.7 - 5.1 mmol/L Final 12/27/2024 4.0 3.7 - 5.1 mmol/L Final 12/26/2024 3.9 3.7 - 5.1 mmol/L Final Intake/Output Summary (Last 24 hours) at 12/28/2024 0450 Last data filed at 12/28/2024 0325 Gross per 24 hour Intake 1170 ml Output 1625 ml Net -455 ml Heme: - HGB - 13.2 - LVX 30 mg BID - transfuse for hemoglobin < 7.0 in a stable patient or for symptomatic anemia, not indicated at this time Endo: - GLU - 135 - continue blood sugar checks ID: Temp (24hrs), Av.7 ?C (98 ?F), Min:36.2 ?C (97.2 ?F), Max:37 ?C (98.6 ?F) - WBC - 11.93 - continue monitor for any signs of infection WBC Date Value Ref Range Status 12/28/2024 11.93 (H) 3.70 - 11.00 k/uL Final Ppx: - GI: None - DVT: LVX - Seizure: None Lines: Lines, Drains, and Airways Line Duration Peripheral 12/26/24 [facility] Left Wrist 18 Gauge 2 days Peripheral 12/26/24 [facility] Right Antecubital 18 Gauge 2 days Drain Duration Chest Tube 12/26/24 2130 Left Lateral Tube #1 1 day Consults: - trauma - SICU Dispo: - Stable for floor SICU Service Pager: For questions or concerns Mon-Tue 6a-5p please page [phone]. After 5pm and on Weekends and Holidays, please page [phone]. SIGNATURE: Rosetta Strong, MS4 PATIENT NAME: Cristino Verdugo DATE: 12/28/2024 TIME: 4:50 AM PAGER: above XR CHEST 1V FRONTAL Observed: 12/28/2024 3:25 AM Status: F Source: [facility] * * *Final Report* * * DATE OF EXAM: Dec 28 2024 3:25AM AKX [id number] - XR CHEST 1V FRONTAL / PROCEDURE REASON: Evaluate tube, line, or lead position * * * * Physician Interpretation * * * * EXAMINATION: CHEST RADIOGRAPH (SINGLE VIEW AP OR PA) CLINICAL HISTORY: Evaluate tube, line, or lead position MQ: XC1_5 Comparison: 12/27/2024 RESULT: Lines, tubes, and devices: Left-sided chest tube in stable position. Overlying secured entrance monitor leads. Lungs and pleura: Minimal suspected atelectasis at the lung bases. No pneumothorax. Cardiomediastinal silhouette: Normal cardiomediastinal silhouette. Other: Again noted are left-sided rib fractures. IMPRESSION: Stable appearance of the chest. Cloud Subject Matter Expert: PSCB Transcribe Date/Time: Dec 28 2024 6:52A Dictated by : RIZWAN RAMON MD This examination was interpreted and the report reviewed and electronically signed by: RIZWAN RAMON MD on Dec 28 2024 6:53AM EST [id number] BAS METAB 2000 PNL SERPL Collected: 2:58 AM Status: F Source: [facility] Order Comment: Specimen Type : BLOOD SPECIMEN Ordering Facility: [facility] Address: [address] [place] [address] TYPE CODE TESTS RESULT OUT OF RANGE REFERENCE UNITS LAB 2345-7(LOINC) Glucose SerPl-mCnc 135 High 74-99 mg/dL Result Comment: The [place] Diabetes Association (ADA) provides guidance for cutoff values for fasting glucose and random glucose. The ADA defines fasting as no caloric intake for at least 8 hours. Fasting plasma glucose results between 100 to 125 mg/dL indicate increased risk for diabetes (prediabetes). Fasting plasma glucose results greater than or equal to 126 mg/dL meet the criteria for diagnosis of diabetes. In the absence of unequivocal hyperglycemia, results should be confirmed by repeat testing. In a patient with classic symptoms of hyperglycemia or hyperglycemic crisis, random plasma glucose results greater than or equal to 200 mg/dL meet the criteria for diagnosis of diabetes. Reference: Standards of Medical Care in Diabetes 2016, [place] Diabetes Association. Diabetes Care. 2016.39(Suppl 1). LAB 3094-0(LOINC) BUN SerPl-mCnc 25 High 7-21 mg/dL LAB 2160-0(LOINC) Creat SerPl-mCnc 0.80 0.58-0.96 mg/dL LAB 2951-2(LOINC) Sodium SerPl-sCnc 130 Low 136-144 mmol/L LAB 2823-3(LOINC) Potassium SerPl-sCnc 4.4 3.7-5.1 mmol/L LAB 2075-0(LOINC) Chloride SerPl-sCnc 101 98-107 mmol/L LAB 8-9(LOINC) CO2 SerPl-sCnc 21 Low 22-30 mmol/L LAB 1863-0(LOINC) Anion Gap4 SerPl-sCnc 8 8-15 mmol/L LAB 81048-7(LOINC) Calcium SerPl-mCnc 8.4 Low 8.5-10.2 mg/dL LAB 02361-2(LOINC) eGFRcr SerPlBld CKD-EPI 2020 76 >=60 mL/min/1. 73m??? Result Comment: Estimated Gl omerular Filtration Rate (eGFR) is calculated using the 2020 CKD-EPI creatinine equation. This equation utilizes serum creatinine, sex, and age as parameters. The creatinine assay has traceable calibration to isotope dilution-mass spectrometry. Refer to KDIGO guidelines for clinical interpretation. In patients with unstable renal function, e.g. those with acute kidney injury, the eGFR may not accurately reflect actual GFR. Performed By: #### 64034-5, 2777-, #### [facility] CLIA [id number] [address] MAGNESIUM SERPL-MCNC Collected: 12/28/2024 2:58 AM S tatus: F Source: [facility] Order Comment: Specimen Type : BLOOD SPECIMEN Ordering Facility: [facility] Address: [address] [place] [address] TYPE CODE TESTS RESULT OUT OF RANGE REFERENCE UNITS LAB 63331-2([facility]) Magnesium SerPl-mCnc 2.7 High 1.7-2.3 mg/dL Performed By: #### 47663-4, 2777-, #### [facility] CLIA [id number] [address] PHOSPHATE SERPL-MCNC Collected: 12/28/2024 2:58 AM S tatus: F Source: [facility] Order Comment: Specimen Type : BLOOD SPECIMEN Ordering Facility: [facility] Address: [address] [place], [place] [id number] TYPE CODE TESTS RESULT OUT OF RANGE REFERENCE UNITS LAB 2777-1([facility]) Phosphate SerPl-mCnc 3.9 2.7-4.8 mg/dL Performed By: #### 92635-7, 2777-1, 66554-7 #### [facility] CLIA [id number] [address] CA-I SERPL-SCNC Collected: 12/28/2024 2:58 AM Status : F Source: [facility] Order Comment: Specimen Type : BLOOD SPECIMEN Ordering Facility: [facility] Address: [address] [place] [address] TYPE CODE TESTS RESULT OUT OF RANGE REFERENCE UNITS LAB 99853-5([facility]) Ca-I adj pH7.4 Bld-sCnc 1.07 Low 1.08-1.30 mmol/L LAB 05730-6([facility]) Ca-I BldV-mCnc 1.10 1.08-1.30 mmol/L Performed By: #### 1994-0 ## ## [facility] CLIA [id number] [address] CBC PNL BLD AUTO Collected: 12/28/2024 2:58 AM Statu s: F Source: [facility] Order Comment: Specimen Type : BLOOD SPECIMEN Ordering Facility: [facility] Address: [address] [place], [place] [id number] TYPE CODE TESTS RESULT OUT OF RANGE REFERENCE UNITS LAB 6690-2(LOINC) WBC # Bld Auto 11.93 High 3.70-11.00 k/uL LAB 789-8(LOINC) RBC # Bld Auto 3.76 Low 3.90-5.20 m/ uL LAB 718-7(LOINC) Hgb Bld-mCnc 13.2 11.5-15.5 g/dL LAB 4544-3(LOINC) Hct VFr Bld Auto 38.9 36.0-46.0 % LAB 787-2(LOINC) MCV RBC Auto 103.5 High 80.0-100.0 fL LAB 785-6(LOINC) MCH RBC Qn Auto 35.1 High 26.0-34.0 pg LAB 786-4(LOINC) MCHC RBC Auto-mCnc 33.9 30.5-36.0 g/dL LAB 10545-4([facility]) RDW RBC-Rto 12.6 11.5-15.0 % LAB 777-3([facility]) Platelet # Bld Auto 157 150-400 k/uL LAB 47832-9([facility]) PMV Bld Auto 10.4 9.0-12.7 fL LAB 771-6([facility]) nRBC # Bld Auto <0.01 <0.01 k/uL Performed By: #### 44883-5 # ### [facility] CLIA [id number] [address] PLAN OF CARE Observed: 12/27/2024 5:22 PM Status: COMPLETED Source: [facility] HNO ID: [id number] Author: HADLEY HARMON DO Service: General Surgery Author Type: Resident Type: Plan of Care Filed: 12/27/2024 17:24 Note Text: SICU TRANSFER TO REGULAR NURSING FLOOR Patient is now deemed stable for transfer to [facility] after being seen and examined by SICU team while on rounds today. Accepted by Dr. Michele to [facility] Indication for SICU Admission: rib fractures SICU Course of Events: You were admitted to the SICU for L sided rib fractures. You received phenobarb at the OSH and at [facility]. You underwent chest tube placement on 12/26. Your chest x-ray was stable. At the time of transfer, your CT is on -20 suction, you are not on supplemental oxygen, and you are pulling 750 on IS. At this point you are consider stable for the floor. BP 129/74 Pulse 86 Temp 36.6 ?C (97.9 ?F) (Oral) Resp 12 Ht 156.2 cm (5' 1.5") Wt 60.5 kg (133 lb 6.1 oz) SpO2 94% BMI 24.80 kg/m? Consult Services and Plans: Trauma Will continue to monitor respiratory status Continue chest tube management PT/OT Monitoring for EtOH withdrawal Dispo Pain control Action Items: See above Telemetry Is Non- ICU Continuous Cardiac Monitoring needed for transfer to [facility]? No NIV Is NIV continuation needed on RNF? No Reason: NA Prescribed frequency of support: NA Lines Lines, Drains, and Airways Line Duration Peripheral 12/26/24 [facility] Left Wrist 18 Gauge 1 day Peripheral 12/26/24 [facility] Right Antecubital 18 Gauge 1 day Drain Duration Chest Tube 12/26/240 Left Lateral Tube #1 <1 day Discussed with SICU attending Dr. Dean. SIGNATURE: Hadley Harmon DO PATIENT NAME: Cristino Verdugo DATE: December 27, 2024 ECG COMPLETE Observed: 12/27/2024 5:06 PM Status: F Source: [facility] Ventricular Rate : 141 BPM Atrial Rate : 141 BPM P-R Interval : 130 ms QRS Duration : 84 ms Q-T Interval : 324 ms QTC Calculation(Bazett) : 496 ms Calculated R [place] : 6 degrees Calculated T [place] : 66 degrees UNUSUAL P AXIS, POSSIBLE ECTOPIC ATRIAL TACHYCARDIA LEFT VENTRICULAR HYPERTROPHY WITH REPOLARIZATION ABNORMALITY ( R in aVL , Darin product ) ABNORMAL ECG WHEN COMPARED WITH ECG OF 26-Dec-2024 19:58, NO SIGNIFICANT CHANGE WAS FOUND Confirmed by MD LOZA VINAY ([id number]) on 12/28/2024 11:23:30 AM NAME : CRISTINO MATA PID : [id number] : 1945 Gender : Female Race : ORD : [id number] Procedure Date : Dec 27 2024 17:06:08 Edit Date : Dec 28 2024 11:23:37 Diagnosis: UNUSUAL P AXIS, POSSIBLE ECTOPIC ATRIAL TACHYCARDIA LEFT VENTRICULAR HYPERTROPHY WITH REPOLARIZATION ABNORMALITY ( R in aVL , Darin product ) ABNORMAL ECG WHEN COMPARED WITH ECG OF 26-Dec-2024 19:58, NO SIGNIFICANT CHANGE WAS FOUND Confirmed by MD LOZA VINAY ([id number]) on 12/28/2024 11:23:30 AM Test Reason : Arrhythmia Location : [address] : [place] [address] Overread By : MD LOZA VINAY Edited By : MD LOZA VINAY Referred By : , Acquired by : EDY FRANCIS CASE MANAGEM Observed: 12/27/2024 12:21 PM Status: COMPLETED Source: [facility] HNO ID: [id number] Author: EDY MEEKS LSW Service: Care Management Author Type: Biological Aide Type: Care Mgt Progress Note Filed: 12/27/2024 12:29 Note Text: CARE MANAGEMENT PROGRESS NOTE SERVICE DATE: 12/27/2024 SERVICE TIME: 12:22 PM LOS: 1 day ALCOHOL USE HISTORY: 1. Consumption Screening Female 4 or more drinks in one session:No More than 1 drink per day:Yes More than 7 drinks per week:Yes 2. Have you ever felt you should cut down on your drinking? No 3. Have people annoyed you by criticizing your drinking? No 4. Have you ever felt bad or guilty about drinking? No 5. Have you ever had a drink first thing in the morning to steady your nerves or get rid of a hangover (eye residential team leader)? No 6. CAGE Screening? Yes 7. If patient has a positive screen CAGE or Consumption, what is their total number of drinks per day? 3-4 glasses of wine 8. Date of last alcohol use: 12/26/24 ALCOHOL/DRUG HISTORY: Alcohol Has drinking/drug use affected your work performance? No Has drinking/drug use caused you to miss work? No Has drinking/drug use affected your relationships? No Has drinking/drug use affected your health? No Has drinking/drug use had legal consequences? No Do you have a history of substance abuse treatment? No MENTAL HEALTH HISTORY: Do you have a history of mental health issues? No Have you ever had any behavioral problems/anger management issues? No PSYCHOSOCIAL ASSESSMENT: Current living situation: with son Social supports: family Do you have a family history of alcohol/drug use? No Do you have a family history of mental health issues? No Significant childhood events (trauma, abuse, neglect)? No Current or past history of abuse/neglect? No Cultural beliefs related to alcohol/drug use? No Self care issues? No Difficulty communicating with others? No Financial difficulties? No Currently employed? No Student? No Past or present ? No PLAN/RECOMMENDATIONS: Patient Education: Guidelines for low-risk alcohol consumption, Information and feedback about screening results, Link between drinking and injury or medical condition, and Relapse Prevention Recommended/Reviewed Abstinence for the following: Contraindicated medical condition present, Drug Interactions, and Operating vehicle or machinery Motivation to seek treatment at this time: Low Barriers to seeking treatment: self Treatment Referral: na Other Referrals: na Patient declined resources. Patient sates she drinks 3-4 glasses of wine daily. Patient's CIWA is 3. Patient's tox screen was positive for barbiturates, benzo's, and opiates. Patient was provided phenobarbital, fentanyl, versed in hospital. SIGNATURE: CELESTE Freitas PATIENT NAME: Cristino Verdugo DATE: December 27, 2024 TIME: 12:21 PM CASE MGT INDONTRELL BALDWIN Observed: 12/27/2024 11:33 AM Status: COMPLETED Source: [facility] HNO ID: [id number] Author: EDY MEEKS LSW Service: Care Management Author Type: Biological Aide Type: Care Mgt Initial Assessment Filed: 12/27/2024 12:17 Note Text: CARE MANAGEMENT: ASSESSMENT AND DISCHARGE PLAN SERVICE DATE: December 27, 2024 SERVICE TIME: 11:33 AM PCP: No primary care provider on file. Primary Contact: Extended Emergency Contact Information Primary Emergency Contact: KARTIKTHANH Address: [address] [place] [address] Relation: Spouse Secondary Emergency Contact: PANKAJ VERDUGO Address: [address] [place], [place] [id number] Relation: None Admission Status: Inpatient Insurance Provider: [place] Discharge Planning requested by: Per Department Practice Potential Transition Plans Advance Directives Current Advance Directive: None Welding Supervisor Attempted to Assist with AD Completion: Yes Action: Patient Unwilling Current Living Arrangements and Support Lives with: Children Type of Residence: Private Residence (House) Does the patient have to climb stairs at home?: Yes Support: Children How do you manage to accomplish the following: Independent: Ambulation, Bathe/Shower, Dress, Meals/Meal Prep, Going to the bathroom, Medication Management Dependent: Transportation to appointments/community Current Services/Equipment Current Post-Acute Service(s): None Discharge Planning Patient Goal(s): General wellness, Be able to go home, Independent living [place] Explained: [place] Given: No Reason Not Given: Unable to complete with this assessment - revisit Are you interested in bedside delivery of your medications? Yes Discharge Planning Participant(s): Patient Patient/Family Comments: Caregiver Assessment: Caregiver is ready, willing and able to meet the patient's needs as recommended by the inter-professional team: No and ALCOHOL USE/ABUSE CAGE ASSESSMENT Two or More Affirmative Responses Suggest a Client is a Problem Drinker. - Have you felt the need to cut down on your drinking? No - Do you feel annoyed by people complaining about your drinking? No - Do you ever feel guilty about your drinking? No - Do you ever drink an eye-residential team leader in the morning to relieve shakes? No Transport at Discharge: Transportation Arrangements: To Be Determined Needs Prior to Discharge: Needs Prior to Discharge: OT/PT Evaluation (medical clearance) Post-Acute Discharge Plan: SW met with patient at bedside, patient is from home with her son Gt. Patinet states she is independent with adl's. Patient denies any issues obtaining food or meds. Patient denies any equip or services. Patient has no hx of c or snf. Patient states that when she walks she has has been stumbling. Patient states this has been going on for a while. Patient states she drinks 3-4 glasses of wine daily. Patient does feel she has an issue with alcohol. Patient states she enjoys it. Patient declined resources. Patient denies any use of drugs. Patient's tox screen positive barbiturates, benzo's, and opiates. Patient's CIWA 3. Patient states she has never had treatment. Patient may benefit from PT/OT evaluation for safe discharge planning. SW/CM to follow for discharge planning. SIGNATURE: CELESTE Freitas PATIENT NAME: Cristino Verdugo DATE: December 27, 2024 TIME: 11:33 AM PROGRESS Observed: 12/27/2024 8:07 AM Status: [id number] Author: WALLACE DEAN MD Service: General Surgery Author Type: ? Type: Progress Notes Filed: 12/27/2024 11:36 Note Text: Attestation signed by Wallace Dean MD at 12/27/2024 11:36 AM (Updated) Supervision of Medical Student Attestation Note I verified the medical student?s documentation in the medical record. I personally performed a physical exam and medical decision making. I made appropriate changes to the documentation and the assessment and plan based on my verification, exam and medical decision making Signature: Wallace Dean MD Date: 12/27/2024 Time: 11:36 AM Plan of care: -hemothorax, chest tube to suction -respiratory insufficiency, wean O2 as tolerated, aggressive pulm hygiene -ok for DVT prophylaxis later today -etoh abuse, risk of withdrawal, on phenobarb taper -risk of protein calorie malnutrition, advance diet -acute pain, on multimodal pain control I provided 31 minutes of critical care services which were necessary due to above specified injuries and illnesses. This patient has a high probability of sudden, clinical significant deterioration, which required the highest level of care and preparedness to intervene urgently. I managed and supervised life or organ supporting interventions that require frequent assessments. This time does not include time devoted to teaching and to any procedure I billed separately. I have personally seen and examined this patient and participated in the robbins components of this encounter with the multi-disciplinary ICU team. I discussed the management of this case with the resident and reviewed/confirmed their documentation, attached or in separate note. I personally reviewed today's actual images, the associated image reports, and current labs. I supervised the ordering of additional testing, imaging, labs, and/or consultations. The patient and/or family were fully informed of the findings and plan of care. They had the opportunity to ask questions and raise any issues of concern, all of which were answered and dealt with by me to their stated satisfaction. The critical care treatment was mainly directed to address the following current issues: Active Hospital Problems Diagnosis Date Noted Pneumothorax 12/26/2024 Posttraumatic respiratory insufficiency 12/27/2024 Fall 12/26/2024 Closed fracture of multiple ribs of left side 12/26/2024 Hemopneumothorax on left 12/26/2024 Alcohol use 12/26/2024 Type 2 diabetes (HCC) 12/26/2024 Chronic IBS (irritable bowel syndrome) 12/26/2024 Chronic History of stroke 2013 Chronic History of cholecystectomy 2008 Chronic Management included sedation, pain control and ventilation assessment including need for ventilator, weaning and/or extubation as indicated. Management of critical care illnesses are edited above by me, including system by system plan and are not only limited to infectious disease and tailoring the antibiotic therapy, nutrition assessment and supplementation, electrolyte correction and prevention of ICU related complications using ventilator bundle, sedation holiday and assessment and removal of lines and tubes where indicated. SIGNATURE: Wallace Dean MD PATIENT NAME: Cristino Verdugo DATE: December 27, 2024 TIME: 11:08 AM INPATIENT SICU PROGRESS NOTE SERVICE DATE: 12/27/2024 SERVICE TIME: 8:08 AM Subjective No acute events overnight. Patient seen and examined this morning. Consciousness is waxing and waning. Chest tube in place but was not on suction overnight. Current Facility-Administered Medications Medication Dose Route Frequency PHENobarbital 65 mg injection 65 mg INTRAVENOUS q 6 H PRN NaCl 0.9% iv flush bag 20 mL INTRAVENOUS PRN potassium chloride ER 20-40 mEq tab(s) (KLOR-CON) 20-40 mEq ORAL/FEEDING TUBE PRN Or potassium chloride iv piggyback 20 mEq/100 mL 20 mEq INTRAVENOUS PRN magnesium sulfate iv piggyback in sterile water 2 g 50 mL 2 g INTRAVENOUS PRN phosphorus 500 mg tab(s) (K PHOS NEUTRAL) 500 mg ORAL/FEEDING TUBE PRN(NO DISPENSE) calcium gluconate iv piggyback 2 g in NaCl (iso-osmotic) 100 mL 2 g INTRAVENOUS PRN(NO DISPENSE) lactated ringers iv infusion 75 mL/hr INTRAVENOUS CONTINUOUS acetaminophen 650 mg tab(s) (TYLENOL) 650 mg ORAL q 6 H ondansetron 4 mg tab(s) (ZOFRAN) 4 mg ORAL q 6 H PRN Or ondansetron (PF) 4 mg injection (ZOFRAN) 4 mg INTRAVENOUS q 6 H PRN oxyCODONE IR 2.5-5 mg tab(s) (ROXICODONE) 2.5-5 mg ORAL q 4 H PRN morphine 1 mg injection 1 mg INTRAVENOUS q 4 H PRN dexAMETHasone sodium phosphate (PF) 10 mg injection (DECADRON) 10 mg OTHER ONE TIME thiamine 200 mg injection 200 mg INTRAVENOUS q 8 H Followed by [START ON 12/29/2024] thiamine 100 mg tab(s) (VITAMIN B1) 100 mg ORAL/FEEDING TUBE TID lidocaine 1%-EPINEPHrine 1:100,000 20 mL injection 20 mL INTRADERMAL ONCE haloperidol lactate 2 mg short-acting injection (HALDOL) 2 mg INTRAVENOUS q 6 H PRN folic acid 1 mg tab(s) 1 mg ORAL DAILY Objective VITAL SIGNS BP 82/60 Pulse 65 Temp (Src) 97.2 (Oral) Resp 14 Ht 5' 1.496" (1.56m) Wt 133 lb 6.1 oz (60.5kg) SpO2 98% BMI 24.80 kg/(m2). O2 Therapy: Nasal Cannula, Liters (Numeric Only): 6 Temp (24hrs), Av.9 ?C (98.5 ?F), Min:36.2 ?C (97.2 ?F), Max:37.3 ?C (99.1 ?F) Date 12/26/24 07 - 12/27/24 0659 12/27/24 07 - 12/28/24 0659 Shift 0848-2558 4368-0019 3950-5606 24 Hour Total 9952-7143 0574-9678 5198-8103 24 Hour Total INTAKE IV 3697 650 5289 Volume (mL) (lactated ringers 1,000 mL iv bolus) 1000 1000 Volume (mL) (lactated ringers iv infusion) 750 750 Shift Total 4123 213 7567 OUTPUT Urine 50 50 Void (ml) 50 50 Urine Incontinence/Not Saved 3 x 3 x Urine Not Saved. 1 x 3 x 4 x Chest Tube 350 350 Chest Tube Output (Chest Tube 12/26/24 2130 Left Lateral Tube #1) 350 350 Shift Total 50 350 400 Weight (kg) 52.2 57.8 60.5 60.5 60.5 60.5 60.5 60.5 PHYSICAL EXAM: GENERAL: No distress. Resting comfortably. NEURO: AANDOx3. Waxing and waning consciousness. No focal neurologic deficits. Sensation grossly intact. HEENT: Normocephalic. Atraumatic. EOMI. LUNGS: Unlabored breathing. Equal excursion bilaterally. Chest tube in place CARDIAC: Regular rate, on tele, Good perfusion throughout. ABDOMEN: Soft, non-tender, non-distended. No rebound or guarding. EXTREMITIES: BRAGA. No deformities. SKIN: No obvious jaundice or pallor. DATA: Diagnostic tests reviewed for today's visit: No results for input(s): "BODSITE", "CTYPE", "PH", "PCO2", "PO2", "BE", "HCO3", "CO2CT", "O2HB", "COHB", "MHGB", "TEMP", "PHTC", "PCO2T", "PO2T", "O2AD" in the last 72 hours. Recent Labs 12/27/24 0249 12/26/24199912/26/24 1426 12/26/24 1253 CREAT 0.65 -- 0.73 -- BUN 17 -- 16 -- NA 134* -- 139 -- K 4.0 -- 3.9 -- CHLOR 103 -- 105 -- CO2 21* -- 21* -- ANION 10 -- 13 -- GLUC 159* -- 106* -- CA 7.4* -- 8.3* -- P 3.6 -- -- -- MG 1.7 -- -- -- ALB -- -- 3.9 -- AST -- -- 68* -- ALT -- -- 55* -- ALKPHOS -- -- 74 -- TBILI -- -- 0.5 -- WBC 5.17 5.70 6.74 -- HB 11.1* 12.5 12.5 -- HCT 32.7* 36.2 36.5 -- PLT 110* 108* 127* -- LACT -- -- 0.9 1.2 Assessment AND Plan ACTIVE PROBLEM LIST Fall Closed Fracture of Multiple Ribs of Left Side Hemopneumothorax On Left Alcohol Use Pneumothorax Fibromyalgia Type 2 Diabetes (Hcc) History of Stroke History of Cholecystectomy Ibs (Irritable Bowel Syndrome) Assessment 79 year old female with limited PMH for review, reported alcohol abuse, GERD, HTN, IBS and possible aspirin/Plavix use who presents to [facility] as a transfer from [place] for treatment of injuries sustained during a reported fall. Hospital course: 12/26: transfer from [place]. Admitted to ICU Neuro: Multiple left rib fractures Patient admits to daily wine consumption Received phenobarbital and Ativan @ [facility] Received second dose of phenobarbital on arrival to [facility] CIWA scoring Social work consult - L rib block in ED - pain: scheduled tylenol, PRN oxy - nausea prn - Continue to manage ETOH withdrawal - Haldol PRN CV: - reportedly on ASA/plavix, poor historian - holding home HCTZ - maintain MAPs > 65 - most recent echo: NA - no indication for pressors at this time Resp: - 98% on O2 Therapy: Nasal Cannula 4 L - CXR Findings: Stable appearance. Small left apical pneumothorax resolved. - Chest tube: output 350 sanguineous. Was off suction last night. Now on suction. - Pulling 750 IS GI: - DIET NPO - Bowel Regimen: NA - GI ppx: NA Renal: - Cr: 0.65 - UDS: Positive for barbiturates, benzo's, and opiates. - strict Is/Os - electrolyte replacement per unit protocol Creatinine Date Value Ref Range Status 12/27/2024 0.65 0.58 - 0.96 mg/dL Final 12/26/2024 0.73 0.58 - 0.96 mg/dL Final Magnesium Date Value Ref Range Status 12/27/2024 1.7 1.7 - 2.3 mg/dL Final Potassium Date Value Ref Range Status 12/27/2024 4.0 3.7 - 5.1 mmol/L Final 12/26/2024 3.9 3.7 - 5.1 mmol/L Final Intake/Output Summary (Last 24 hours) at 12/27/2024 0808 Last data filed at 12/27/2024 0453 Gross per 24 hour Intake 1750 ml Output 400 ml Net 1350 ml Heme: - HGB - 11.1 from 12.5 - DVT ppx held - transfuse for hemoglobin < 7.0 in a stable patient or for symptomatic anemia, not indicated at this time Endo: - GLU - 159 - Not on insulin - continue blood sugar checks ID: Temp (24hrs), Av.9 ?C (98.5 ?F), Min:36.2 ?C (97.2 ?F), Max:37.3 ?C (99.1 ?F) - WBC - 5.17 - no indication for abx at this time - continue monitor for any signs of infection WBC Date Value Ref Range Status 12/27/2024 5.17 3.70 - 11.00 k/uL Final Ppx: - GI None - DVT SCD's - Seizure None Lines: Lines, Drains, and Airways Line Duration Peripheral 12/26/24 [facility] Facility Left Wrist 18 Gauge 1 day Peripheral 12/26/24 External Facility Right Antecubital 18 Gauge 1 day Drain Duration Chest Tube 12/26/24 2130 Left Lateral Tube #1 <1 day Consults: - trauma - SICU Dispo: - Pending clinical course SICU Service Pager: For questions or concerns Mon-Tue 6a-5p please page [phone]. After 5pm and on Weekends and Holidays, please page [phone]. SIGNATURE: Rosetta Strong MS4 PATIENT NAME: Cristino Verdugo DATE: 12/27/2024 TIME: 8:08 AM PAGER: above 25(OH)D3 SERPL-MCNC Collected: 12/28/19 8:00 AM Status: F Source: [facility] Order Comment: Specimen Type : BLOOD SPECIMEN Ordering Facility: [facility] Address: [address] [place] [address] TYPE CODE TESTS RESULT OUT OF RANGE REFERENCE UNITS LAB 1988-07(LOINC) 25(OH)D3 SerPl-mCnc 46.4 >=30.0 ng/mL Result Comment: Classificati on of 25 OH Vitamin D status: Deficiency: <= 20.0 ng/ml. Insufficiency: 21.0-29.0 ng/ml. Sufficiency: >= 30.0 ng/ml. Performed By: #### 1988-07 ## ## [facility] CLIA [id number] [address] URINALYSIS COMPLETE PNL UR Collected: 12/27/2024 7:59 AM Status: F Source: [facility] Order Comment: Specimen Type : URINE SPECIMEN Ordering Facility: [facility] Address: [address] [place] [address] TYPE CODE TESTS RESULT OUT OF RANGE REFERENCE UNITS LAB 5778-6(LOINC) Color Ur Yellow yellow LAB 22862-6(LOINC) Clarity Spec Clear Clear LAB 5792-7(LOINC) Glucose Ur Strip-mCnc 1+ Abnormal Trace, Negative LAB 5770-3(LOINC) Bilirub Ur Ql Strip Negative Negative LAB 2514-8(LOINC) Ketones Ur Strip 1+ Abnormal Negative, Trace LAB 5811-5(LOINC) Sp Gr Ur Strip 1.028 1.005-1.030 LAB 5794-3(LOINC) Hgb Ur Ql Strip 2+ Abnormal Negative, Trace LAB 5803-2(LOINC) pH Ur Strip 6.0 5.0-8.0 LAB 5804-0(LOINC) Prot Ur Strip-mCnc 1+ Abnormal Trace, Negative LAB 5818-0(LOINC) Urobilinogen Ur Strip Normal Normal LAB 5802-4(LOINC) Nitrite Ur Ql Strip Negative Negative LAB 5799-2(LOINC) Leukocyte esterase Ur Ql Strip Negative Negative, 25 Cady/uL LAB 5821-4(LOINC) WBC #/area UrnS HPF 0-5 /HPF 0-5 /HPF LAB 41082-6(LOINC) RBC #/area UrnS HPF 11-25 /HPF Abnormal 0-3 /HPF LAB 5787-7(LOINC) Epi Cells #/area UrnS HPF Few /HPF Result Comment: Few Performed By: #### 66893-2 # ### [facility] CLIA [id number] [address] PROGRESS Observed: 12/27/2024 7:00 AM Status: COMPLETED Source: [facility] HNO ID: [id number] Author: GT MICHELE MD Service: General Surgery Author Type: Resident Type: Progress Notes Filed: 01/11/2025 11:28 Note Text: Attestation signed by Gt Michele MD at 01/11/2025 11:28 AM Patient was seen and evaluated by myself on this day December 27, 2024. I agree with the presented documentation unless specifically noted. SIGNATURE: Gt Michele MD PATIENT NAME: Cristino Verdugo DATE: January 11, 2025 TIME: 11:28 AM Pager: [phone] Trauma Surgery Progress Note SERVICE DATE: 12/27/2024 Trauma Service Pager: For questions or concerns Mon-Fri 6a-5p please page [phone]. After 5pm and on Weekends and Holidays, please page [phone] if in ICU or [phone] if on RNF.SUBJECTIVE: Pt with CT placed at bedside yesterday. No other acute events overnight. CT found to not be on sxn in the room, was replaced to sxn this morning with initial AL that resolved and did not recur. 450cc SS in pleurevac, pt otherwise doing well. Nursing stating that she was slightly altered overnight, thinking that there were children in the hallways. OBJECTIVE: Vitals: Temp (24hrs), Av.2 ?C (98.9 ?F), Min:36.9 ?C (98.4 ?F), Max:37.3 ?C (99.1 ?F) BP 82/60 Pulse 65 Temp 37.3 ?C (99.1 ?F) (Oral) Resp 14 Ht 156.2 cm (5' 1.5") Wt 60.5 kg (133 lb 6.1 oz) SpO2 98% BMI 24.80 kg/m? O2 Therapy: Nasal Cannula IANDO: Date 12/26/24699 - 12/27/24 0612/27/24699 - 12/28/24 0659 Shift 3170-8594 0866-8623 7433-4534 24 Hour Total 1500-6461 7846-4971 8553-5089 24 Hour Total INTAKE IV 1200 958 9037 Volume (mL) (lactated ringers 1,000 mL iv bolus) 1000 1000 Volume (mL) (lactated ringers iv infusion) 750 750 Shift Total 3036 007 8159 OUTPUT Urine 50 50 Void (ml) 50 50 Urine Incontinence/Not Saved 3 x 3 x Urine Not Saved. 1 x 3 x 4 x Chest Tube 350 350 Chest Tube Output (Chest Tube 12/26/24 2130 Left Lateral Tube #1) 350 350 Shift Total 50 350 400 Weight (kg) 52.2 57.8 60.5 60.5 60.5 60.5 60.5 60.5 MEDICATIONS: Current Facility-Administered Medications Medication Dose Route Frequency haloperidol lactate 2 mg short-acting injection (HALDOL) 2 mg INTRAVENOUS q 6 H PRN PHENobarbital 65 mg injection 65 mg INTRAVENOUS q 6 H PRN NaCl 0.9% iv flush bag 20 mL INTRAVENOUS PRN potassium chloride ER 20-40 mEq tab(s) (KLOR-CON) 20-40 mEq ORAL/FEEDING TUBE PRN Or potassium chloride iv piggyback 20 mEq/100 mL 20 mEq INTRAVENOUS PRN magnesium sulfate iv piggyback in sterile water 2 g 50 mL 2 g INTRAVENOUS PRN phosphorus 500 mg tab(s) (K PHOS NEUTRAL) 500 mg ORAL/FEEDING TUBE PRN(NO DISPENSE) calcium gluconate iv piggyback 2 g in NaCl (iso-osmotic) 100 mL 2 g INTRAVENOUS PRN(NO DISPENSE) lactated ringers iv infusion 75 mL/hr INTRAVENOUS CONTINUOUS acetaminophen 650 mg tab(s) (TYLENOL) 650 mg ORAL q 6 H ondansetron 4 mg tab(s) (ZOFRAN) 4 mg ORAL q 6 H PRN Or ondansetron (PF) 4 mg injection (ZOFRAN) 4 mg INTRAVENOUS q 6 H PRN oxyCODONE IR 2.5-5 mg tab(s) (ROXICODONE) 2.5-5 mg ORAL q 4 H PRN morphine 1 mg injection 1 mg INTRAVENOUS q 4 H PRN dexAMETHasone sodium phosphate (PF) 10 mg injection (DECADRON) 10 mg OTHER ONE TIME thiamine 200 mg injection 200 mg INTRAVENOUS q 8 H lidocaine 1%-EPINEPHrine 1:100,000 20 mL injection 20 mL INTRADERMAL ONCE Labs: Recent Labs 12/27/24 0249 12/26/24199912/26/24 1426 12/26/24 1426 12/26/24 1253 NA 134* -- -- 139 -- K 4.0 -- -- 3.9 -- CHLOR 103 -- -- 105 -- CO2 21* -- -- 21* -- BUN 17 -- -- 16 -- CREAT 0.65 -- -- 0.73 -- GLUC 159* -- -- 106* -- ANION 10 -- -- 13 -- CA 7.4* -- -- 8.3* -- MG 1.7 -- -- -- -- P 3.6 -- -- -- -- ALB -- -- -- 3.9 -- AST -- -- -- 68* -- ALT -- -- -- 55* -- ALKPHOS -- -- -- 74 -- TBILI -- -- -- 0.5 -- WBC 5.17 5.70 < > 6.74 -- HB 11.1* 12.5 < > 12.5 -- HCT 32.7* 36.2 < > 36.5 -- PLT 110* 108* < > 127* -- LACT -- -- -- 0.9 1.2 INR -- -- -- 1.0 -- < > = values in this interval not displayed. PHYSICAL EXAM: GENERAL: Alert. No distress. Resting comfortably. NEURO: AANDOx3. No focal neurologic deficits. Sensation grossly intact. HEENT: Normocephalic. Atraumatic. EOMI. LUNGS: Unlabored breathing. Equal excursion bilaterally. CT to -20 sxn, initial AL with return to sxn but none afterwards, 450cc SS CARDIAC: Regular rate. Good perfusion throughout. ABDOMEN: Soft, non-tender, non-distended. No rebound or guarding. EXTREMITIES: BRAGA. No deformities. SKIN: No obvious jaundice or pallor. ASSESSMENT AND PLAN: Assessment Active Hospital Problems Diagnosis Date Noted Pneumothorax 12/26/2024 Fall 12/26/2024 Closed fracture of multiple ribs of left side 12/26/2024 Hemopneumothorax on left 12/26/2024 Alcohol use 12/26/2024 Type 2 diabetes (HCC) 12/26/2024 Chronic IBS (irritable bowel syndrome) 12/26/2024 Chronic History of stroke 2013 Chronic History of cholecystectomy 2008 Chronic 79 year old female s/p reported GLF @ home on 12/26/2024 with history of ETOH abuse (possibly on ASA and/or Plavix) Imaging performed: 12/26/2024 - CT HNCAP @ [place], CXR @ [facility] Traumatic Injuries: Left 6-9 rib fractures with associated hemopneumothorax and subcutaneous emphysema Operations/Procedures: 1. 12/26- Serratus block and L CT placement Care Plan: Multiple left rib fractures, hemopneumothorax, subQ emphysema CT placed at bedside, 450mL in pleurevac, bubbles present in chamber immediately after being placed back to suction but none after. dCXR: stable chest, no measurable PTX Continue to maintain CT to -20 sxn. Monitor and document output Aggressive pulmonary hygiene Multimodal pain control H/O ETOH abuse Patient admits to daily wine consumption, EtOH <11 on intake and UDS showing no other illicit drugs Received phenobarbital and Ativan @ [facility] Received second dose of phenobarbital on arrival to [facility] CIWA scoring Management of ETOH withdrawal per SICU team Social work consult XR L elbow/forearm pending Current diet order: NPO Pain regimen: Tylenol, prn oxycodone, morphine Bowel regimen: N/A Labs: Daily CBC, BMP, Mag, Phos, Ica2+ PPX: DVT: Hold DVT chemo ppx; SCDs Ulcer: NA Vit D level if > 65 yo: Pending Consulted Services: SICU Trauma Dispo Planning: PT/OT recs pending. Case management following. Incidentals: N/A Assessment and plan d/w Dr. Michele. SIGNATURE: Que Burdick DO PATIENT NAME: Cristino Verdugo DATE: 12/27/2024 TIME: 7:02 AM Pager: see below Trauma Service Pager: For questions or concerns Mon-Fri 6a-5p please page [phone]. After 5pm and on Weekends and Holidays, please page [phone] if in ICU or [phone] if on RNF. XR CHEST 1V FRONTAL Observed: 12/27/2024 5:44 AM Status: F Source: [facility] * * *Final Report* * * DATE OF EXAM: Dec 27 2024 5:44AM AKX [id number] - XR CHEST 1V FRONTAL / PROCEDURE REASON: Evaluate tube, line, or lead position * * * * Physician Interpretation * * * * EXAMINATION: CHEST RADIOGRAPH (SINGLE VIEW AP OR PA) CLINICAL HISTORY: Evaluate tube, line, or lead position MQ: XC1_5 Comparison: 12/26/2024 RESULT: Lines, tubes, and devices: Left-sided chest tube in stable position. Overlying secured entrance monitor leads. Lungs and pleura: No measurable pneumothorax. Diminished aeration both lung bases. Cardiomediastinal silhouette: Normal cardiomediastinal silhouette. Other: Left-sided rib fractures. Previous vertebroplasty in mid to lower thoracic spine vertebral bodies. IMPRESSION: Stable appearance of the chest. Cloud Subject Matter Expert: PSCB Transcribe Date/Time: Dec 27 2024 6:51A Dictated by : RIZWAN RAMON MD This examination was interpreted and the report reviewed and electronically signed by: RIZWAN RAMON MD on Dec 27 2024 6:52AM EST [id number] PROCEDURE Observed: 12/27/2024 4:32 AM Status: COMPLETED Source: [facility] HNO ID: [id number] Author: QUE PEREYRA DO Service: General Surgery Author Type: Resident Type: Procedures Filed: 12/27/2024 04:35 Note Text: BEDSIDE PROCEDURE NOTE CHEST TUBE Date/Start Time: 12/27/2024 4:32 AM Date/Stop Time: 12/27/2024 4:32 AM Performed by: Que Pereyra DO Authorized by: Gt Michele MD Where was Patient When this Procedure was Performed: Bedside/Unscheduled Procedure Room This procedure has been performed by a resident/fellow without an attending's supervision Informed Consent Consent Obtained: Written [place] Protocol A moment to CARE was completed. SIGN IN Personnel directly involved with the procedure wore the appropriate PPE. Special Equipment: N/A Patient/Surrogate Stated/Verified: Patient name, Date of , Relevant allergies and Intended procedure TIME OUT Relevant labs, photos, and/or imaging studies have been reviewed. Intended patient and procedure match source documents. Correct side/site marked and visible. Medications required for procedure verified. Fire risk assessed and interventions discussed. Pre-Procedure Details: The area was prepped with alcohol and allowed to dry. A sterile partial body drape was applied following the usual aseptic technique. Medications: Analgesia (see MAR): Fentanyl Local Anesthesia (see MAR): Lidocaine 1% Procedure Details: Indication: hemopneumothorax Chest Tube Type: Chest Tube Location: left Intercostal Space: 5th Position: lateral Insertion site: pleural space Chest Tube Number: 1 A 28 Fr chest tube was inserted into the cavity to 18 cm depth. Using open technique, a 1 cm incision was made. The pleural cavity was entered using a kuldeep clamp. The appropriate location in the pleural cavity was confirmed by noting the presence of lung. Placement in the pleural space was confirmed by chest x-ray. The tube was secured with sterile sutures A Tegaderm and Vaseline gauze dressing was placed around the tube. The tube was connected to suction Drainage: bloody fluid Drainage amount (mL): 50 Post-insertion x-ray findings: Reviewed tube in good position Number of attempts: 1 Successful Placement: Yes Post-Procedure Details: Patient Tolerance: Patient tolerated the procedure well with no immediate complications Estimated Blood Loss: scant Specimens Sent: none SIGN OUT No specimen collected. All instruments, equipment, possible retained foreign bodies accounted for. The post-procedure POC has been communicated to the patient or surrogate. Post-procedure POC communicated to patient's multidisciplinary team (including bedside nurse for hospitalized patients). SIGNATURE: Que Pereyra DO PATIENT NAME: Cristino Verdugo DATE: December 27, 2024 TIME: 4:32 AM TEG WITH HEPARIN NEUTRALIZATION Collect ed: 12/27/2024 4:24 AM Status: F Source: [facility] Order Comment: Specimen Type : BLOOD SPECIMEN Ordering Facility: [facility] Address: [address] [place] [address] TYPE CODE TESTS RESULT OUT OF RANGE REFERENCE UNITS LAB 12762-0(LOINC ) CT.extrinsic Bld ADELE 4.9 4.6-9.1 minutes LAB 21009-6(LOINC ) MCF Bld TEG 55.2 52.0-69.0 mm LAB 19894-7(LOINC ) Clot init P Hpase Bld TEG 5.2 4.3-8.3 minutes LAB [id number] CITRATED KAOLIN W HEPARINASE CLOT LYSIS AT 30 MINS 0.3 0.0-3.2 % LAB [id number] CITRATED RAPID TEG W HEPARINASE MAXIMUM AMPLITUDE 55 53-69 mm LAB [id number] CITRATED FUNCTIONAL FIBRINOGEN W HAPARINASE MAXIMUM AMPLITUDE 18.2 15-34 mm LAB [id number] THROMBOGRAPH INTERP Result Comment: A thromboela stograph (TEG) study was performed using citrate-anticoagulated whole blood treated with and without heparinase to neutralize a heparin effect. The R value, a measure of coagulation function, is within the normal range. This indicates normal coagulation function. The Ly30, a measure of fibrinolysis, is normal. This is indicative of normal fibrinolytic function.The Maximal Amplitude (MA), a measure of platelet function, is within the normal range. Viscoelastic testing is not intended for the monitoring of anticoagulation or antiplatelet medications or the diagnosis and/or management of platelet disorders and/or coagulopathies but may be useful for guiding blood product utilization in emergency and urgent (OR) circumstances when routine coagulation and cell blood counts are not available in a timely manner. Performed By: #### TEGHN ### # [facility] CLIA [id number] [address] CBC PNL BLD AUTO Collected: 12/27/2024 2:49 AM Statu s: F Source: [facility] Order Comment: Specimen Type : BLOOD SPECIMEN Ordering Facility: [facility] Address: [address] [place] [address] TYPE CODE TESTS RESULT OUT OF RANGE REFERENCE UNITS LAB 6690-2(LOINC) WBC # Bld Auto 5.17 3.70-11.00 k/uL LAB 789-8(LOINC) RBC # Bld Auto 3.13 Low 3.90-5.20 m/ uL LAB 718-7(LOINC) Hgb Bld-mCnc 11.1 Low 11.5-15.5 g/dL LAB 4544-3(LOINC) Hct VFr Bld Auto 32.7 Low 36.0-46.0 % LAB 787-2(LOINC) MCV RBC Auto 104.5 High 80.0-100.0 fL LAB 785-6(LOINC) MCH RBC Qn Auto 35.5 High 26.0-34.0 pg LAB 786-4(LOINC) MCHC RBC Auto-mCnc 33.9 30.5-36.0 g/dL LAB 05204-9(LOINC) RDW RBC-Rto 12.7 11.5-15.0 % LAB 777-3(LOINC) Platelet # Bld Auto 110 Low 150-400 k/uL LAB 84746-7(LOINC) PMV Bld Auto 10.1 9.0-12.7 fL LAB 771-6(LOINC) nRBC # Bld Auto <0.01 <0.01 k/uL Performed By: #### 55305-0 # ### [facility] CLIA [id number] [address] [place] [id number] [place] BAS METAB 2000 PNL SERPL Collected: 2:49 AM Status: F Source: [facility] Order Comment: Specimen Type : BLOOD SPECIMEN Ordering Facility: [facility] Address: [address] [place] [address] [place] [address] TYPE CODE TESTS RESULT OUT OF RANGE REFERENCE UNITS LAB 2345-7(LOINC) Glucose SerPl-mCnc 159 High 74-99 mg/dL Result Comment: The [place] Diabetes Association (ADA) provides guidance for cutoff values for fasting glucose and random glucose. The ADA defines fasting as no caloric intake for at least 8 hours. Fasting plasma glucose results between 100 to 125 mg/dL indicate increased risk for diabetes (prediabetes). Fasting plasma glucose results greater than or equal to 126 mg/dL meet the criteria for diagnosis of diabetes. In the absence of unequivocal hyperglycemia, results should be confirmed by repeat testing. In a patient with classic symptoms of hyperglycemia or hyperglycemic crisis, random plasma glucose results greater than or equal to 200 mg/dL meet the criteria for diagnosis of diabetes. Reference: Standards of Medical Care in Diabetes 2016, [place] Diabetes Association. Diabetes Care. 2016.39(Suppl 1). LAB 3094-0(LOINC) BUN SerPl-mCnc 17 7-21 mg/dL LAB 2160-0(LOINC) Creat SerPl-mCnc 0.65 0.58-0.96 mg/dL LAB 2951-2(LOINC) Sodium SerPl-sCnc 134 Low 136-144 mmol/L LAB 2823-3(LOINC) Potassium SerPl-sCnc 4.0 3.7-5.1 mmol/L LAB 2075-0(LOINC) Chloride SerPl-sCnc 103 98-107 mmol/L LAB 2028-9(LOINC) CO2 SerPl-sCnc 21 Low 22-30 mmol/L LAB 1863-0(LOINC) Anion Gap4 SerPl-sCnc 10 8-15 mmol/L LAB 32663-6(LOINC) Calcium SerPl-mCnc 7.4 Low 8.5-10.2 mg/dL LAB 67416-5(LOINC) eGFRcr SerPlBld CKD-EPI 2020 91 >=60 mL/min/1. 73m??? Result Comment: Estimated Gl omerular Filtration Rate (eGFR) is calculated using the 2020 CKD-EPI creatinine equation. This equation utilizes serum creatinine, sex, and age as parameters. The creatinine assay has traceable calibration to isotope dilution-mass spectrometry. Refer to KDIGO guidelines for clinical interpretation. In patients with unstable renal function, e.g. those with acute kidney injury, the eGFR may not accurately reflect actual GFR. Performed By: #### 2777-1, 2 1-2, #### [facility] CLIA [id number] [address] MAGNESIUM SERPL-MCNC Collected: 12/27/2024 2:49 AM S tatus: F Source: [facility] Order Comment: Specimen Type : BLOOD SPECIMEN Ordering Facility: [facility] Address: [address] [place] [address] TYPE CODE TESTS RESULT OUT OF RANGE REFERENCE UNITS LAB 90960-8(INC) Magnesium SerPl-mCnc 1.7 1.7-2.3 mg/dL Performed By: #### 2777-1, 2 4320-2, #### [facility] CLIA [id number] [address] PHOSPHATE SERPL-MCNC Collected: 12/27/2024 2:49 AM S tatus: F Source: [facility] Order Comment: Specimen Type : BLOOD SPECIMEN Ordering Facility: [facility] Address: [address] [place] [address] TYPE CODE TESTS RESULT OUT OF RANGE REFERENCE UNITS LAB 2777-1(LOINC) Phosphate SerPl-mCnc 3.6 2.7-4.8 mg/dL Performed By: #### 2777-1, 2 4320-2, #### [facility] CLIA [id number] [address] [facility] CA-I SERPL-SCNC Collected: 12/27/2024 2:49 AM Status : F Source: [facility] Order Comment: Specimen Type : BLOOD SPECIMEN Ordering Facility: [facility] Address: [place] [address] TYPE CODE TESTS RESULT OUT OF RANGE REFERENCE UNITS LAB 90854-1([facility]) Ca-I adj pH7.4 Bld-sCnc 0.98 Low 1.08-1.30 mmol/L LAB 01554-8([facility]) Ca-I BldV-mCnc 0.99 Low 1.08-1.30 mmol/L Performed By: #### 1995-0 ## ## [facility] CLIA [id number] [address] XR CHEST 1V FRONTAL Observed: 12/27/2024 12:24 AM Status: F Source: [facility] * * *Final Report* * * DATE OF EXAM: Dec 27 2024 12:24AM AKX 5290 - XR CHEST 1V FRONTAL / PROCEDURE REASON: Evaluate tube, line, or lead position * * * * Physician Interpretation * * * * EXAMINATION: CHEST RADIOGRAPH (SINGLE VIEW AP OR PA) CLINICAL HISTORY: Evaluate tube, line, or lead position MQ: XC1_5 Comparison: 12/26/2024 chest radiograph. RESULT: Lines, tubes, and devices: Left chest tube and the distal tip projecting over the lower left hemithorax and apparently coiling. EKG electrodes. Lungs and pleura: The previously seen small left apical pneumothorax is essentially resolved. Improved definition of the costophrenic angles. Left lower lobe opacity favoring atelectasis. Cardiomediastinal silhouette: Stable cardiomediastinal silhouette. Other: Redemonstration of acutely fractured left rib cage ribs. Subcutaneous gas in the lateral left chest wall most likely due to instrumentation. IMPRESSION: The previously seen small left apical pneumothorax is essentially resolved. Cloud Subject Matter Expert: PSCB Transcribe Date/Time: Dec 27 2024 5:22A Dictated by : JOSR MERRITT MD This examination was interpreted and the report reviewed and electronically signed by: JOSR MERRITT MD on Dec 27 2024 5:24AM EST [id number] STAPHYLOCOCCUS AUREUS AND MR SA SCREEN, PCR, NASAL Collected: 12/26/2024 10:10 PM Status: F Source: [facility] Order Comment: Specimen Type : SWAB Ordering Facility: [facility] Address: [address] [place] [address] TYPE CODE TESTS RESULT OUT OF RANGE REFERENCE UNITS LAB 15960-9(LOINC) SA+MRSA Pnl Nose PARISH+probe Not Detected Not Detected Performed By: #### SAPCR ### # [facility] CLIA [id number] [address] CBC PNL BLD AUTO Collected: 12/26/2024 8:00 PM Statu s: F Source: [facility] Order Comment: Specimen Type : BLOOD SPECIMEN Ordering Facility: [facility] Address: [address] [place] [address] TYPE CODE TESTS RESULT OUT OF RANGE REFERENCE UNITS LAB 6690-2(LOINC) WBC # Bld Auto 5.70 3.70-11.00 k/uL LAB 789-8(LOINC) RBC # Bld Auto 3.48 Low 3.90-5.20 m/ uL LAB 718-7(LOINC) Hgb Bld-mCnc 12.5 11.5-15.5 g/dL LAB 4544-3(LOINC) Hct VFr Bld Auto 36.2 36.0-46.0 % LAB 787-2(LOINC) MCV RBC Auto 104.0 High 80.0-100.0 fL LAB 785-6(LOINC) MCH RBC Qn Auto 35.9 High 26.0-34.0 pg LAB 786-4(LOINC) MCHC RBC Auto-mCnc 34.5 30.5-36.0 g/dL LAB 14646-3(LOINC) RDW RBC-Rto 13.0 11.5-15.0 % LAB 777-3(LOINC) Platelet # Bld Auto 108 Low 150-400 k/uL LAB 10245-5(LOINC) PMV Bld Auto 9.8 9.0-12.7 fL LAB 771-6(LOINC) nRBC # Bld Auto <0.01 <0.01 k/uL Performed By: #### 79695-7 # ### [facility] CLIA [id number] [address] [place] ECG COMPLETE Observed: 12/26/2024 7:58 PM Status: F Source: [facility] Ventricular Rate : 138 BPM Atrial Rate : 138 BPM P-R Interval : 128 ms QRS Duration : 70 ms Q-T Interval : 308 ms QTC Calculation(Bazett) : 466 ms Calculated R [place] : 5 degrees Calculated T [place] : -7 degrees UNUSUAL P AXIS, POSSIBLE ECTOPIC ATRIAL TACHYCARDIA NONSPECIFIC ST AND T WAVE ABNORMALITY ABNORMAL ECG WHEN COMPARED WITH ECG OF 26-Dec-2024 12:48, NONSPECIFIC T WAVE ABNORMALITY NO LONGER EVIDENT IN ANTERIOR LEADS Confirmed by MD LOZA VINAY ([id number]) on 12/27/2024 11:38:39 AM NAME : CRISTINO MATA PID : [id number] : 1945 Gender : Female Race : ORD : [id number] Procedure Date : Dec 26 2024 19:58:26 Edit Date : Dec 27 2024 11:38:42 Diagnosis: UNUSUAL P AXIS, POSSIBLE ECTOPIC ATRIAL TACHYCARDIA NONSPECIFIC ST AND T WAVE ABNORMALITY ABNORMAL ECG WHEN COMPARED WITH ECG OF 26-Dec-2024 12:48, NONSPECIFIC T WAVE ABNORMALITY NO LONGER EVIDENT IN ANTERIOR LEADS Confirmed by MD LOZA VINAY ([id number]) on 12/27/2024 11:38:39 AM Test Reason : stat Location : 200 : [place] [address] Overread By : MD LOZA VINAY Edited By : MD LOZA VINAY Referred By : , Acquired by : LOAN HOLDEN URINALYSIS COMPLETE PNL UR Collected: 12/26/2024 6:19 PM Status: F Source: [facility] Order Comment: Specimen Type : URINE SPECIMEN Ordering Facility: [facility] Address: [address] [place] [address] TYPE CODE TESTS RESULT OUT OF RANGE REFERENCE UNITS LAB 5778-6(LOINC) Color Ur Light Yellow yellow LAB 92677-3(LOINC) Clarity Spec Clear Clear LAB 5792-7(LOINC) Glucose Ur Strip-[facility] Negative Trace, Negative LAB 5770-3(LOINC) Bilirub Ur Ql Strip Negative Negative LAB 2514-8(LOINC) Ketones Ur Strip 1+ Abnormal Negative, Trace LAB 5811-5(LOINC) Sp Gr Ur Strip >1.040 High 1.005-1.030 LAB 5794-3(LOINC) Hgb Ur Ql Strip 1+ Abnormal Negative, Trace LAB 5803-2(LOINC) pH Ur Strip 5.5 5.0-8.0 LAB 5804-0(LOINC) Prot Ur Strip-mCnc Negative Trace, Negative LAB 5818-0(LOINC) Urobilinogen Ur Strip Normal Normal LAB 5802-4(LOINC) Nitrite Ur Ql Strip Negative Negative LAB 5799-2(LOINC) Leukocyte esterase Ur Ql Strip Negative Negative, 25 Cady/uL LAB 5821-4(LOINC) WBC #/area UrnS HPF 0-5 /HPF 0-5 /HPF LAB 58919-3(LOINC) RBC #/area UrnS HPF 3-5 /HPF Abnormal 0-3 /HPF LAB 5787-7(LOINC) Epi Cells #/area UrnS HPF Few Abnormal None Seen /HPF Performed By: #### 89367-8 # ### [facility] CLIA [id number] [address] [place] [address] [place] TOXICOLOGY SCREEN, ROUTINE URINE Collected: 12/26/2024 6:19 PM Status: F Source: [facility] Order Comment: Specimen Type : URINE SPECIMEN Ordering Facility: [facility] Address: [address] [place] [address] TYPE CODE TESTS RESULT OUT OF RANGE REFERENCE UNITS LAB 28510-6([facility]) Amphetamines Ur Cfm-mCnc Negative Negative Result Comment: Cutoff thres hold at 1000 ng/mL. LAB UBARBR BARBITURATES, URINE Preliminary positive Abnormal Negative Result Comment: Cutoff thres hold at 200 ng/mL. LAB UBENZR BENZODIAZEPINES, URINE Preliminary positive Abnormal Negative Result Comment: Cutoff thres hold at 200 ng/mL. LAB 20971-5([facility]) Cannabinoids Ur Ql Scn Negative Negative Result Comment: Cutoff thres hold at 50 ng/mL. LAB 3397-7(LOINC) Cocaine Ur Ql Negative Negative Result Comment: Cutoff thres hold at 300 ng/mL. LAB 5645-7(LOINC) Ethanol Ur-mCnc <11 <11 mg /dL LAB 71692-5(LOINC) fentaNYL Ur Ql Scn Negative Negative Result Comment: Cutoff thres hold at 5 ng/mL. LAB 00635-4(LOINC) Opiates Ur Ql Scn Preliminary positive Abnormal Negative Result Comment: Cutoff thres hold at 300 ng/mL. LAB (LOINC) oxyCODONE lock and dam repairer Ur Scn-mCnc Negative Negative Result Comment: Cutoff thres hold at 100 ng/mL. LAB (LOINC) PCP Ur Ql Scn Negative Negative Result Comment: Cutoff thres hold at 25 ng/mL. Performed By: #### UTOX2 ### # [facility] CLIA [id number] [address] ED NOTE Observed: 12/26/2024 5:15 PM Status: COMPLETED Source: [facility] HNO ID: [id number] Author: SETH GOLDSTEIN RN Service: ? Author Type: Registered Nurse Type: ED Notes Filed: 12/26/2024 17:55 Note Text: Report attempted. MICU nurse notified bedside report would be given upon arrival. ED NOTE Observed: 12/26/2024 4:45 PM Status: COMPLETED Source: [facility] HNO ID: [id number] Author: GABRIEL SOLIS RN Service: ? Author Type: Registered Nurse Type: ED Notes Filed: 12/26/2024 17:54 Note Text: RN pulled away from critical pt CONSULT Observed: 12/26/2024 4:24 PM Status: COMPLETED Source: [facility] HNO ID: [id number] Author: WALLACE DEAN MD Service: General Surgery Author Type: Resident Type: Consults Filed: 12/27/2024 11:02 Note Text: Attestation signed by Wallace Dean MD at 12/27/2024 11:02 AM Attending Note I discussed with resident. The patient was not examined by the attending. I reviewed the resident's note. I agree with the resident's assessment and plan unless otherwise noted. Signature: Wallace Dean MD Surgical Intensive Care Unit Consult Note SERVICE DATE: 12/26/2024 SERVICE TIME: 4:24 PM REASON FOR CONSULT: multiple rib fx, GLF, hemopneumothorax REQUESTING PHYSICIAN: trauma Subjective 79 year old female with limited PMH for review, reported alcohol abuse, GERD, HTN, IBS and possible aspirin/Plavix use who presents to [facility] as a transfer from [place] for treatment of injuries sustained during a reported fall. Patient states that she fell at home last night around 1:00AM but cannot provide any details as her mentation is currently altered. She was seen at [place] where CT imaging of her chest revealed left 6-9 rib fractures with associated left hemopneumothorax. CT brain and cervical spine were read as negative for acute injuries. CT A/P was also completed and reviewed but report not available at this time. Secondary to concern for ETOH withdrawal at the outside hospital, she was reportedly given phenobarbital and a dose of Ativan. She was given another dose of phenobarbital on arrival to [facility]. Current GCS 14 - 1 off for confusion. Trauma team placing bedside chest tube. Not compliant with IS. On non-rebreather. Trauma SICU consulted for further management FUNCTIONAL STATUS: Independent PAST MEDICAL HISTORY Diagnosis Date GERD (Gastroesophageal Reflux Disease) HTN (Hypertension), Benign IBS (Irritable Bowel Syndrome) PAST SURGICAL HISTORY Procedure Laterality Date L'SCOPE DULCE MARIA W/CHOLANGIOGRAPHY 03-03-09 No family history on file. SOCIAL HISTORY[1] Prescriptions Prior to Admission[2] Current Facility-Administered Medications Medication Dose Route Frequency PHENobarbital 65 mg injection 65 mg INTRAVENOUS q 6 H PRN NaCl 0.9% iv flush bag 20 mL INTRAVENOUS PRN potassium chloride ER 20-40 mEq tab(s) (KLOR-CON) 20-40 mEq ORAL/FEEDING TUBE PRN Or potassium chloride iv piggyback 20 mEq/100 mL 20 mEq INTRAVENOUS PRN magnesium sulfate iv piggyback in sterile water 2 g 50 mL 2 g INTRAVENOUS PRN phosphorus 500 mg tab(s) (K PHOS NEUTRAL) 500 mg ORAL/FEEDING TUBE PRN(NO DISPENSE) calcium gluconate iv piggyback 2 g in NaCl (iso-osmotic) 100 mL 2 g INTRAVENOUS PRN(NO DISPENSE) lactated ringers iv infusion 75 mL/hr INTRAVENOUS CONTINUOUS acetaminophen 650 mg tab(s) (TYLENOL) 650 mg ORAL q 6 H ondansetron 4 mg tab(s) (ZOFRAN) 4 mg ORAL q 6 H PRN Or ondansetron (PF) 4 mg injection (ZOFRAN) 4 mg INTRAVENOUS q 6 H PRN oxyCODONE IR 2.5-5 mg tab(s) (ROXICODONE) 2.5-5 mg ORAL q 4 H PRN morphine 1 mg injection 1 mg INTRAVENOUS q 4 H PRN bupivacaine (PF) 0.25 % (2.5 mg/mL) 100 mg injection (SENSORCAINE MPF) 40 mL INFILTRATION ONCE dexAMETHasone sodium phosphate (PF) 10 mg injection (DECADRON) 10 mg OTHER ONE TIME NaCl 0.9% 1,000 mL iv bolus 1,000 mL INTRAVENOUS ONCE Allergies As of Date: 12/26/2024 Allergen Noted Reaction PENICILLINS 03/11/2009 Fully Assessed 12/26/2024 COMPLETE REVIEW OF SYSTEMS: GENERAL: No weight loss, malaise or fevers. HEENT: Negative for frequent or significant headaches, No changes in hearing or vision, no nose bleeds or other nasal problems. NECK: Negative for lumps, goiter, pain and significant neck swelling. RESPIRATORY: Negative for cough, hemoptysis, wheezing, COPD, dyspnea or shortness of breath. CARDIOVASCULAR: Negative for chest pain, leg swelling, hypertension, CHF or palpitations. GI: No nausea, vomiting, or diarrhea. MUSCULOSKELETAL: Negative for joint pain or swelling, back pain or muscle pain. SKIN: Negative for lesions, rash, and itching. PSYCH: Negative for sleep disturbance, mood disorder and recent psychosocial stressors. NEURO: No history of headaches, syncope, paralysis, seizures or tremors. Objective PHYSICAL EXAM: BP 114/83 Pulse 146 Temp (Src) 98.4 (Axillary) Resp 17 Ht 5' 6" (1.68m) Wt 115 lb (52.2kg) SpO2 99% BMI 18.57 kg/(m2). O2 Therapy: Non-Rebreather Mask, Liters (Numeric Only): 2 GENERAL: Alert. No distress. NEURO: AANDOx1-2 HEENT: Normocephalic. Atraumatic. EOMI. LUNGS: Unlabored breathing on non rebreather. Equal excursion bilaterally. CARDIAC: tachycardic to 140 ABDOMEN: Soft, non-tender, non-distended. No rebound or guarding. EXTREMITIES: BRAGA. No deformities. SKIN: No obvious jaundice or pallor. DATA: Labs: Recent Labs 12/26/24 1426 12/26/24 1253 NA 139 -- K 3.9 -- CHLOR 105 -- CO2 21* -- BUN 16 -- CREAT 0.73 -- GLUC 106* -- ANION 13 -- CA 8.3* -- ALB 3.9 -- AST 68* -- ALT 55* -- ALKPHOS 74 -- TBILI 0.5 -- WBC 6.74 -- HB 12.5 -- HCT 36.5 -- PLT 127* -- LACT 0.9 1.2 INR 1.0 -- Diagnostic tests reviewed for today's visit: Most recent labs and imaging results. Assessment and Plan: This is a 79 year old female with EtOH abuse arriving following a GLF at home Hospital course: 12/26: transfer from [place] Neuro: Multiple left rib fractures, hemopneumothorax, subQ emphysema Multimodal pain control Aggressive pulmonary hygiene Will need bedside chest tube placement for hemopneumothorax evacuation (28F) dCXR while chest tube is in place H/O ETOH abuse Patient admits to daily wine consumption UDS pending Received phenobarbital and Ativan @ [place] Received second dose of phenobarbital on arrival to [facility] CIWA scoring Management of ETOH withdrawal per SICU team Social work consult - pain and nausea prn CV: - reportedly on ASA/plavix, poor historian - holding home HCTZ - maintain MAPs > 65 - most recent echo: NA - no indication for pressors at this time Resp: Multiple L sided rib fx - not compliant with IS - on non breather - L CT placed at bedside, see trauma note. Keep to -20 suction - continue to monitor output - maintain SpO2 > 92 GI: - DIET NPO - Bowel Regimen: NA - GI ppx: NA Renal: - strict Is/Os - [place]: NA - dialysis: NA - creatinine - 0.73 - electrolyte replacement per unit protocol No intake or output data in the 24 hours ending 12/26/24 0659 Heme: - HGB - 12.5 - DVT ppx: holding - transfuse for hemoglobin < 7.0 or for symptomatic anemia, not indicated at this time Endo: - GLU - 106 - no indication for insulin at this time - continue blood sugar checks ID: - WBC - 6.74 - no indication for abx at this time - continue monitor for any signs of infection Ppx: - NA Lines: Peripheral Left Antecubital 18 Gauge (Active) External Collection Device 12/26/24 1253 [facility] (Active) Consults: - trauma - SICU Dispo: - pending clinical course Patient Checklist Deep vein thrombosis prophylaxis administered? No. Contraindicated.. Stress ulcer prophylaxis? No, not indicated.. Pain addressed? Yes. Nutrition: Enteral- Yes. TPN- No. PO- No. Restraints? No. Dispo needs assessed? Yes. Assessment and plan discussed with Dr. Dean at 4:34 PM . SICU Service Pager: For questions or concerns Mon-Tue 6a-5p please page [phone]. After 5pm and on Weekends and Holidays, please page [phone]. SIGNATURE: Hadley Harmon DO PATIENT NAME: Cristino Verdugo DATE: December 26, 2024 TIME: 4:24 PM Pager: See above. [1] [2] (Not in a hospital admission) XR FOREARM 2V AP/LAT LT Observed: 2024 3:19 PM Status: F Source: [facility] * * *Final Report* * * DATE OF EXAM: Dec 26 2024 3:19PM AKX [id number] - XR FOREARM 2V AP/LAT LT / PROCEDURE REASON: Trauma * * * * Physician Interpretation * * * * XR ELBOW 2V AP/LAT LT, XR FOREARM 2V AP/LAT LT12/26/2024 3:19 PM CLINICAL HISTORY: Elbow and arm pain COMPARISON: None. TECHNIQUE: XR ELBOW 2V AP/LAT LT, XR FOREARM 2V AP/LAT LT RESULT: Left elbow: No acute fracture. Normal alignment. Questionable joint effusion. Left forearm: No acute fracture. Normal alignment. Soft tissues unremarkable. IMPRESSION: No acute osseous findings. Questionable elbow effusion. If pain persists follow-up with cross-sectional imaging can be obtained. Cloud Subject Matter Expert: ANA Transcribe Date/Time: Dec 27 2024 7:58A Dictated by : ZAKI JOVEL MD This examination was interpreted and the report reviewed and electronically signed by: ZAKI JOVEL MD on Dec 27 2024 8:06AM EST [id number] XR ELBOW 2V AP/LAT LT Observed: 12/27/19 3:19 PM Status: F Source: [facility] * * *Final Report* * * DATE OF EXAM: Dec 26 2024 3:19PM AKX [id number] - XR ELBOW 2V AP/LAT LT / PROCEDURE REASON: Elbow pain * * * * Physician Interpretation * * * * XR ELBOW 2V AP/LAT LT, XR FOREARM 2V AP/LAT LT12/26/2024 3:19 PM CLINICAL HISTORY: Elbow and arm pain COMPARISON: None. TECHNIQUE: XR ELBOW 2V AP/LAT LT, XR FOREARM 2V AP/LAT LT RESULT: Left elbow: No acute fracture. Normal alignment. Questionable joint effusion. Left forearm: No acute fracture. Normal alignment. Soft tissues unremarkable. IMPRESSION: No acute osseous findings. Questionable elbow effusion. If pain persists follow-up with cross-sectional imaging can be obtained. Cloud Subject Matter Expert: ANA Transcribe Date/Time: Dec 27 2024 7:58A Dictated by : ZAKI JOVEL MD This examination was interpreted and the report reviewed and electronically signed by: ZAKI JOVEL MD on Dec 27 2024 8:06AM EST [id number] STAPHYLOCOCCUS AUREUS AND MR SA SCREEN, PCR, NASAL Collected: 12/26/2024 2:46 PM Status: F Source: [facility] Order Comment: Specimen Type : SWAB Ordering Facility: [facility] Address: [address] [place] [address] TYPE CODE TESTS RESULT OUT OF RANGE REFERENCE UNITS LAB 34999-6(LOINC) SA+MRSA Pnl Nose PARISH+probe Not Detected Not Detected Performed By: #### SAPCR ### # [facility] CLIA [id number] [address] [place] [address] [place] HIGH SENSITIVITY TROPONIN T Collected: 12/26/2024 2:4 5 PM Status: F Source: [facility] Order Comment: Specimen Type : BLOOD SPECIMEN Ordering Facility: [facility] Address: [address] [place] [address] TYPE CODE TESTS RESULT OUT OF RANGE REFERENCE UNITS LAB 70877-7(LOINC) Troponin T SerPl HS-mCnc 20 High <12 ng/L Performed By: #### HSTNT ### # [facility] CLIA [id number] [address] TYPE + SCREEN Collected: 12/26/2024 2:26 PM Status: F Source: [facility] Order Comment: Specimen Type : BLOOD SPECIMEN Ordering Facility: [facility] Address: [address] [place] [address] TYPE CODE TESTS RESULT OUT OF RANGE REFERENCE UNITS LAB [id number] ABO O LAB [id number] RH Negative LAB [id number] ANTIBODY SCREEN Negative LAB [id number] TYPE AND SCREEN EXPIRATION 12/29/2024 23:59 Performed By: #### TSCR #### [facility] CLIA [id number] [address] OF [facility] ETHANOL SERPL-MCNC Collected: 12/26/2024 2:26 PM Sta tus: F Source: [facility] Order Comment: Specimen Type : BLOOD SPECIMEN Ordering Facility: [facility] Address: [address] [place] [address] TYPE CODE TESTS RESULT OUT OF RANGE REFERENCE UNITS LAB 5643-2(LOINC) Ethanol SerPl-mCnc <11 <11 mg/dL Performed By: #### 5643-2 ## ## [facility] CLIA [id number] [address] [place] PT PNL PPP Collected: 12/26/2024 2:26 PM Status: F Source: [facility] Order Comment: Specimen Type : BLOOD SPECIMEN Ordering Facility: [facility] Address: [address] [place] [address] TYPE CODE TESTS RESULT OUT OF RANGE REFERENCE UNITS LAB 5902-2(LOINC) Prothrombin time 11.2 9.7-13.0 sec LAB 6301-6(LOINC) INR PPP 1.0 0.9-1.3 Result Comment: Vitamin K An tagonist (VKA) Therapeutic Range: INR 2 to 3 (Target INR of 2.5) Note: For patients treated with VKA drugs, such as warfarin, the [place] [employer] 2012 Guideline recommends a therapeutic INR range of 2 to 3 (target INR of 2.5). This recommendation includes high-risk patients with antiphospholipid syndrome with previous arterial or venous thromboembolism, current-generation mechanical or bioprosthetic aortic heart valve replacement. Note: Patients with mechanical aortic valve replacement and additional risk factors for thromboembolic events (atrial fibrillation, previous thromboembolism, LV dysfunction, hypercoagulable conditions) or an older generation mechanical AVR (i.e., ball in-Cage) or any mechanical MVR should have a INR therapeutic range of 2.5 to 3.5 (target INR of 3). Sharlene GALLARDO, et al. Chest 2012, 141:7S-47S Tianna RA, et al. [facility] 2017, 70: 252-289 Performed By: #### 52871-9, 98247-7 #### [facility] CLIA [id number] [address] STATES OF [facility] APTT PPP Collected: 2:26 PM Status: F Source: [facility] Order Comment: Specimen Type : BLOOD SPECIMEN Ordering Facility: [facility] Address: [address] [place] [address] TYPE CODE TESTS RESULT OUT OF RANGE REFERENCE UNITS LAB 98589-7(INC) aPTT PPP 26.2 23.0-32.4 sec Performed By: #### 43946-9, 45372-1 #### [facility] CLIA [id number] [address] [place] LACTATE BLD-SCNC Collected: 12/26/2024 2:26 PM Statu s: F Source: [facility] Order Comment: Specimen Type : BLOOD SPECIMEN Ordering Facility: [facility] Address: [address] [place] [address] TYPE CODE TESTS RESULT OUT OF RANGE REFERENCE UNITS LAB 28021-3(LOINC) Lactate Bld-sCnc 0.9 0.5-2.2 mmol/L Performed By: #### 60506-5 # ### [facility] CLIA [id number] [address] CBC PNL BLD AUTO Collected: 12/26/2024 2:26 PM Statu s: F Source: [facility] Order Comment: Specimen Type : BLOOD SPECIMEN Ordering Facility: [facility] Address: [address] [place] [address] TYPE CODE TESTS RESULT OUT OF RANGE REFERENCE UNITS LAB 6690-2(LOINC) WBC # Bld Auto 6.74 3.70-11.00 k/uL LAB 789-8(LOINC) RBC # Bld Auto 3.48 Low 3.90-5.20 m/ uL LAB 718-7(LOINC) Hgb Bld-mCnc 12.5 11.5-15.5 g/dL LAB 4544-3(LOINC) Hct VFr Bld Auto 36.5 36.0-46.0 % LAB 787-2(LOINC) MCV RBC Auto 104.9 High 80.0-100.0 fL LAB 785-6(LOINC) MCH RBC Qn Auto 35.9 High 26.0-34.0 pg LAB 786-4(LOINC) MCHC RBC Auto-mCnc 34.2 30.5-36.0 g/dL LAB 13273-4(LOINC) RDW RBC-Rto 13.1 11.5-15.0 % LAB 777-3(LOINC) Platelet # Bld Auto 127 Low 150-400 k/uL LAB 82627-9(LOINC) PMV Bld Auto 10.1 9.0-12.7 fL LAB 771-6(LOINC) nRBC # Bld Auto <0.01 <0.01 k/uL Performed By: #### 17670-9 # ### [facility] CLIA [id number] [address] COMP METAB 2000 PNL SERPL Collected: 2:26 PM Status: F Source: [facility] Order Comment: Specimen Type : BLOOD SPECIMEN Ordering Facility: [facility] Address: [address] [place] [address] TYPE CODE TESTS RESULT OUT OF RANGE REFERENCE UNITS LAB 2885-2(LOINC) Prot SerPl-mCnc 6.4 6.3-8.0 g/dL LAB 1751-7(LOINC) Albumin SerPl-mCnc 3.9 3.9-4.9 g/dL LAB 86210-7(LOINC) Calcium SerPl-mCnc 8.3 Low 8.5-10.2 mg/dL LAB 1975-2(LOINC) Bilirub SerPl-mCnc 0.5 0.2-1.3 mg/dL LAB 6768-6(LOINC) ALP SerPl-cCnc 74 34-123 U/L LAB 68567-6(LOINC) AST SerPl w P-5'-P-cCnc 68 High 13-35 U/L LAB 1743-4(LOINC) ALT SerPl w P-5'-P-cCnc 55 High 7-38 U/L LAB 2345-7(LOINC) Glucose SerPl-mCnc 106 High 74-99 mg/dL Result Comment: The [place] [employer] (ADA) provides guidance for cutoff values for fasting glucose and random glucose. The ADA defines fasting as no caloric intake for at least 8 hours. Fasting plasma glucose results between 100 to 125 mg/dL indicate increased risk for diabetes (prediabetes). Fasting plasma glucose results greater than or equal to 126 mg/dL meet the criteria for diagnosis of diabetes. In the absence of unequivocal hyperglycemia, results should be confirmed by repeat testing. In a patient with classic symptoms of hyperglycemia or hyperglycemic crisis, random plasma glucose results greater than or equal to 200 mg/dL meet the criteria for diagnosis of diabetes. Reference: Standards of Medical Care in Diabetes 2016, [place] Diabetes Association. Diabetes Care. 2016.39(Suppl 1). LAB 3094-0(LOINC) BUN SerPl-mCnc 16 7-21 mg/dL LAB 2160-0(LOINC) Creat SerPl-mCnc 0.73 0.58-0.96 mg/dL LAB 2951-2(LOINC) Sodium SerPl-sCnc 139 136-144 mmol/L LAB 2823-3(LOINC) Potassium SerPl-sCnc 3.9 3.7-5.1 mmol/L LAB 2075-0(LOINC) Chloride SerPl-sCnc 105 98-107 mmol/L LAB 2027-9(LOINC) CO2 SerPl-sCnc 21 Low 22-30 mmol/L LAB 1863-0(LOINC) Anion Gap4 SerPl-sCnc 13 8-15 mmol/L LAB 84460-1(LOINC) eGFRcr SerPlBld CKD-EPI 2020 85 >=60 mL/min/1. 73m??? Result Comment: Estimated Gl omerular Filtration Rate (eGFR) is calculated using the 2020 CKD-EPI creatinine equation. This equation utilizes serum creatinine, sex, and age as parameters. The creatinine assay has traceable calibration to isotope dilution-mass spectrometry. Refer to KDIGO guidelines for clinical interpretation. In patients with unstable renal function, e.g. those with acute kidney injury, the eGFR may not accurately reflect actual GFR. Performed By: #### 3040-3, 2 4323-8 #### [facility] CLIA [id number] [address] LIPASE SERPL-CCNC Collected: 12/26/2024 2:26 PM Stat us: F Source: [facility] Order Comment: Specimen Type : BLOOD SPECIMEN Ordering Facility: [facility] Address: [address] [place] [address] TYPE CODE TESTS RESULT OUT OF RANGE REFERENCE UNITS LAB 3040-3([facility]) Lipase SerPl-cCnc 37 16-61 U/L Performed By: #### 3040-3, 2 4323-8 #### [facility] CLIA [id number] [address] HISTORY PHYSICAL Observed: 12/26/2024 2:25 PM Status: COMPLETED Source: [facility] HNO ID: [id number] Author: YOU DELGADO PA-C Service: General Surgery Author Type: Physician Supervisor Contact And Service Clerks Type: H&P Filed: 12/26/2024 14:52 Note Text: Attestation signed by Gt Michele MD at 01/11/2025 11:28 AM Patient was seen and evaluated by myself on this day December 26, 2024. I agree with the presented documentation unless specifically noted. SIGNATURE: Gt Michele MD PATIENT NAME: Cristino Verdugo DATE: January 11, 2025 TIME: 11:28 AM Pager: [phone] HANDP ARRIVAL DATE: 12/26/2024 ARRIVAL TIME: 12:43Pm CATEGORY: Consult Consult Requesting Physician: Dr. Gt Conner DO INJURY DATE: 12/26/2024 INJURY TIME: Approximately 1:00AM Subjective 79 year old female with limited PMH for review, reported alcohol abuse, GERD, HTN, IBS and possible aspirin/Plavix use who presents to [facility] as a transfer from [place] for treatment of injuries sustained during a reported fall. Patient states that she fell at home last night around 1:00AM but cannot provide any details as her mentation is currently altered. She was seen at [place] where CT imaging of her chest revealed left 6-9 rib fractures with associated left hemopneumothorax. CT brain and cervical spine were read as negative for acute injuries. CT A/P was also completed and reviewed but report not available at this time. Secondary to concern for ETOH withdrawal at the outside hospital, she was reportedly given phenobarbital and a dose of Ativan. She was given another dose of phenobarbital on arrival to [facility]. Current GCS 14 - 1 off for confusion. At the time of my examination, patient is on a non-rebreather with saturations in the low to mid-90s. She is obviously altered but able to answer some questions and state her name, , current month and year but is unsure of her whereabouts. She admits to drinking wine daily, unspecified amount. Last drink last night at an unspecified time. She confirms left chest wall pain. Denies abdominal pain, BYRNE, neck or back pain. She is again unable to detail her fall and states, "I was asleep when I fell." She is unable to confirm or deny antiplatelet or OAC use or provide any detailed medical history at this time. HPI/CHIEF COMPLAINT: GLF BRIEF DESCRIPTION OF INJURIES: Left 6-9 rib fractures with associated hemopneumothorax and subcutaneous emphysema Left elbow contusion with small skin tear LAST FLUIDS/MEAL: Unknown CODE STATUS: Unable to discuss secondary to mental status ALLERGIES Allergen Reactions Penicillins Prescriptions Prior to Admission[1] DATE OF LAST TETANUS: Immunization History Administered Date(s) Administered COVID-19 original vaccine, age 12+ yr, monovalent (PFIZER-BIONTECH - SKINNER TOP) 09/09/2021 COVID-19 original vaccine, age 12+ yr, monovalent (PFIZER-BIONTECH - PURPLE TOP) 07/29/2020 08/19/2020 COVID-19 vaccine, age 12+ yr (MODERNA) 06/15/2023 COVID-19 vaccine, age 12+ yr (PFIZER-BIONTECH COMIRNATY) 01/24/2024 06/23/2024 PAST MEDICAL HISTORY Diagnosis Date GERD (Gastroesophageal Reflux Disease) HTN (Hypertension), Benign IBS (Irritable Bowel Syndrome) PAST SURGICAL HISTORY Procedure Laterality Date L'SCOPE DULCE MARIA W/CHOLANGIOGRAPHY 03-03-09 SOCIAL HISTORY[2] No family history on file. ROS: Is the patient having any pain? Yes LOCATION: Left chest Constitutional: Unable to obtain due to mental status or language barrier Eye/Ear/Nose: Unable to obtain due to mental status or language barrier Respiratory: Unable to obtain due to mental status or language barrier Cardiovascular: Unable to obtain due to mental status or language barrier GI/Liver/Biliary: Unable to obtain due to mental status or language barrier Genitourinary: Unable to obtain due to mental status or language barrier Psychiatric: Unable to obtain due to mental status or language barrier Neurologic: Unable to obtain due to mental status or language barrier Musculoskeletal: Unable to obtain due to mental status or language barrier Integument: Unable to obtain due to mental status or language barrier Endocrine: Unable to obtain due to mental status or language barrier Heme/Lymph: Unable to obtain due to mental status or language barrier Objective OBJECTIVE: BP 114/79 Pulse (!) 135 Temp 36.9 ?C (98.4 ?F) (Axillary) Resp 17 Ht 167.6 cm (5' 6") Wt 52.2 kg (115 lb) SpO2 (!) 94% BMI 18.56 kg/m? PHYSICAL EXAM: Genl: Appears age appropriate. No acute distress. Generally appears confused. Head/Face: Normocephalic. Superficial abrasion anterior frontal scalp. Eyes: EOMI. Sclera not icteric, not injected Neck: No mid-line masses. C-spine non-tender. Back: T AND L Spine non-tender, no step-offs noted. No flank tenderness. Left posterior periscapular contusion. Resp: Diminished breath sounds on the left. Non-labored breathing on 15L NR with saturations around 94%. Left lateral and posterior chest wall tenderness without crepitus. CVS: HR and rhythm as above. Good perfusion throughout. Extremities warm to touch. 2+ radial and DP pulses. GI: Abdomen is soft, non-tender, not distended. Bowel sounds normoactive. No peritonitis. MSK: BRAGA spontaneous. No obvious bony deformities or limb length discrepancies. Ecchymosis to left elbow and forearm with small skin tear to left lateral elbow. Small area of ecchymosis left anterior lower leg. Skin: Warm and dry. Not jaundiced. Neuro: AANDOx2 to person and time. Unable to state whereabouts. Appears generally confused. Speech soft but clear. No facial droop. Gross motors and sensation intact. GCS 14 - 1 off for confusion. Psych: Flat mood and affect. No acute agitation PRIOR TO ARRIVAL: Loss of Consciousness Unknown Labs: Recent Labs 12/26/24 1426 12/26/24 1253 WBC 6.74 -- HB 12.5 -- HCT 36.5 -- PLT 127* -- LACT -- 1.2 INR 1.0 -- Assessment/Plan Active Hospital Problems Diagnosis Date Noted Fall 12/26/2024 Closed fracture of multiple ribs of left side 12/26/2024 Hemopneumothorax on left 12/26/2024 Alcohol use 12/26/2024 79 year old female s/p reported GLF @ home on 12/26/2024 with history of ETOH abuse (possibly on ASA and/or Plavix) Imaging performed: 12/26/2024 - CT HNCAP @ [facility], CXR @ [facility] Traumatic Injuries: Left 6-9 rib fractures with associated hemopneumothorax and subcutaneous emphysema Operations/Procedures: 1. None at this time Care Plan: Admit to SICU under trauma surgery NPO/IVF Multiple left rib fractures, hemopneumothorax, subQ emphysema Multimodal pain control Aggressive pulmonary hygiene Will need bedside chest tube placement for hemopneumothorax evacuation (28F) dCXR while chest tube is in place H/O ETOH abuse Patient admits to daily wine consumption UDS pending Received phenobarbital and Ativan @ [facility] Received second dose of phenobarbital on arrival to [facility] CIWA scoring Management of ETOH withdrawal per SICU team Social work consult Obtain XR L elbow/forearm Current diet order: No diet orders on file Pain regimen: Tylenol, prn oxycodone, morphine Bowel regimen: N/A Labs: Daily CBC, BMP, Mag, Phos, Ica2+ PPX: DVT: Hold DVT chemo ppx; SCDs Ulcer: NA Vit D level if > 65 yo: Pending Consulted Services: SICU Trauma Dispo Planning: PT/OT recs pending. Case management following. Incidentals: N/A Follow Up Needs: TBD Discussed with Staff Trauma Surgeon: Dr. Michele @ 2:51PM SIGNATURE: You Delgado PA-C PATIENT NAME: Cristino Verdugo DATE: December 26, 2024 TIME: 2:25 PM Pager: see below Trauma Service Pager: For questions or concerns Mon-Fri 6a-5p please page [phone]. After 5pm and on Weekends and Holidays, please page [phone] if in ICU or [phone] if on RNF. [1] (Not in a hospital admission) [2] XR CHEST 1V FRONTAL Observed: 12/26/2024 1:21 PM Status: F Source: [facility] * * *Final Report* * * DATE OF EXAM: Dec 26 2024 1:21PM TY 5290 - XR CHEST 1V FRONTAL / PROCEDURE REASON: Pneumothorax * * * * Physician Interpretation * * * * EXAMINATION: CHEST RADIOGRAPH (SINGLE VIEW AP OR PA) CLINICAL HISTORY: Pneumothorax MQ: XC1_5 Comparison: Prior same day outside hospital CT chest RESULT: Lines, tubes, and devices: None. Lungs and pleura: No focal consolidation. Small left pleural effusion. Tiny left apical pneumothorax, better appreciated on prior CT. Cardiomediastinal silhouette: Normal cardiomediastinal silhouette. Other: Minimally displaced fractures of the posterior lateral left ribs 2-9, better appreciated on prior CT. IMPRESSION: Multiple left-sided rib fractures with small left pleural effusion and tiny left apical pneumothorax, better appreciated on prior CT. Cloud Subject Matter Expert: PSCB Transcribe Date/Time: Dec 26 2024 1:30P Dictated by : GILLIAN PHILLIPS DO This examination was interpreted and the report reviewed and electronically signed by: GILLIAN PHILLIPS DO on Dec 26 2024 1:34PM EST [id number] ED PROV NOTE Observed: 12/26/2024 1:08 PM Status: COMPLETED Source: [facility] HNO ID: [id number] Author: GT CONNER DO Service: Emergency Medicine Author Type: Resident Type: ED Provider Notes Filed: 12/26/2024 22:16 Note Text: Attestation signed by Gt Conner DO at 12/26/2024 10:16 PM Attending Physician Attestation Note: Robbins findings confirmed. I saw the patient in coordination with the resident physician. I personally interviewed and examined the patient. I discussed the patient with the resident physician. I reviewed the resident physician's note. I was present for robbins portions of and personally supervised any/all procedures. I personally saw the patient and performed a substantive portion of the visit including all aspects of the medical decision making. I agree with the resident physician's findings and medical decision making unless otherwise documented. GT CONNER DO Emergency Medicine Attending Physician/Emergency Ultrasound Fellow [facility] ED Provider Note Patient Name: Cristino Verdugo : 1945 SERVICE DATE: 12/26/24 History Patient presents with: Fall: Transfer from [place] ED. Pt experienced multiple falls last night d/t alcohol use. Pt drinks 3-4 glasses of wine a day. Rib fx left side 6-9. Small pneuomthorax on left side. Ativan given in route. Pt HR 140-160s. HPI Patient is a 79 y/o female with PMHx HLD, HTN, etoh abuse presenting as a transfer from [place] after a fall at home. Patient's last drink reported around 7pm night prior to arrival. Patient's workup at outside hospital revealed left rib fractures 6-9 and a small left apical pneumothorax. All other imaging was negative for acute abnormalities. Patient arrived alert and oriented but drowsy on nasal cannula. She endorses left sided chest wall pain. Denies cardiac chest pain, dyspnea, syncope, fever, chills PAST MEDICAL HISTORY Diagnosis Date GERD (Gastroesophageal Reflux Disease) HTN (Hypertension), Benign IBS (Irritable Bowel Syndrome) PAST SURGICAL HISTORY Procedure Laterality Date L'SCOPE DULCE MARIA W/CHOLANGIOGRAPHY 03-03-09 No family history on file. Social History[1] ALLERGIES Allergen Reactions Penicillins Review of Systems Constitutional: Negative for chills and fever. HENT: Negative. Respiratory: Negative for cough, chest tightness, shortness of breath and wheezing. Left chest wall pleuritic pain Cardiovascular: Negative for chest pain and palpitations. Gastrointestinal: Negative for abdominal distention, abdominal pain, diarrhea, nausea and vomiting. Genitourinary: Negative. Musculoskeletal: Negative for back pain and neck pain. Skin: Negative for rash. Left side elbow contusion Neurological: Negative for dizziness, syncope, weakness and headaches. Psychiatric/Behavioral: Negative for behavioral problems. Physical Exam Vitals [12/26/24 1247] BP Pulse Temp Temp src Resp SpO2 Weight Height 111/69 (!) 142 36.9 ?C (98.4 ?F) Axillary 21 (!) 93 % 52.2 kg (115 lb) 1.676 m (5' 6") Physical Exam Constitutional: Appearance: She is not diaphoretic. HENT: Right Ear: Tympanic membrane normal. Left Ear: Tympanic membrane normal. Nose: Nose normal. Mouth/Throat: Mouth: Mucous membranes are moist. Eyes: Extraocular Movements: Extraocular movements intact. Pupils: Pupils are equal, round, and reactive to light. Cardiovascular: Rate and Rhythm: Regular rhythm. Tachycardia present. Pulses: Normal pulses. Pulmonary: Effort: Pulmonary effort is normal. Breath sounds: No wheezing. Comments: Diminished left side breath sounds Increased work of breathing Left chest wall tender to palpation Abdominal: General: There is no distension. Palpations: Abdomen is soft. Tenderness: There is no abdominal tenderness. Musculoskeletal: General: Normal range of motion. Cervical back: Normal range of motion. Skin: General: Skin is warm and dry. Neurological: General: No focal deficit present. Mental Status: She is alert and oriented to person, place, and time. Psychiatric: Mood and Affect: Mood normal. Diagnostic Testing ED Labs Ordered and Reviewed VENOUS BLOOD GAS, ED-POC(AK) - Abnormal; Notable for the following components: Result Value Ref Range pH,Venous(POCT) 7.431 (*) 7.320 - 7.430 pH units pCO2,Venous(POCT) 34.0 (*) 40.6 - 60.0 mmHg pO2,Venous(POCT) 63.1 (*) 15.9 - 37.5 mmHg Total CO2 (POCT) 19.8 (*) 21 - 30 mmol/L Base Excess,Venous(POCT) -1.0 (*) 0 - 4 mmol/L sO2 (POCT) 91.9 (*) 18.0 - 74.8 % O2Hb,Venous(POCT) 90.2 (*) 60 - 85 % Glucose (POCT) 117 (*) 70 - 99 mg/dL Ionized Ca (POCT) 1.06 (*) 1.15 - 1.29 mmol/L All other components within normal limits Narrative: Meter ID:ED RESP #1 Block Stacker Name:MICHELLE RAMOS Location:[facility], [address] [place] [address], [id number] Ultrasound Guided Peripheral Nerve Block US Nerve Block (POC) ED USE ONLY Date/Time: 12/26/2024 4:50 PM Performed by: Claire Cardenas DO Authorized by: Gt Conner DO Indication: Patient requires injection for administration of anesthetic for pain management and/or procedural analgesia. US Procedure: Informed consent obtained either written or verbal. Using the linear probe covered in a sterile fashion, the Other (see comments) (serratous anterior plane block) nerves were identified. Under dynamic guidance, the needle was observed to enter, away from vascular structures. Anesthetic was injected without contacting nerve, with fluid surrounding the nerve. Yes still images or video images were saved for this exam. Conclusion: Successful nerve block was performed under ultrasound guidance. This limited imaging study was performed by: Resident/SAVANNAH with Attending supervision. Dr. Conner supervised and interpreted this ultrasound exam. 20 mL bupivacaine used NERVE BLOCK Date/Time: 12/26/2024 4:56 PM Performed by: Claire Cardenas DO Authorized by: Gt Conner DO Informed Consent Consent Obtained: Written Layton Protocol A moment to CARE was completed. SIGN IN Personnel directly involved with the procedure wore the appropriate PPE. Special Equipment: N/A Patient/Surrogate Stated/Verified: Patient name, Date of , Relevant allergies and Intended procedure TIME OUT Relevant labs, photos, and/or imaging studies have been reviewed. Intended patient and procedure match source documents. Consent obtained and matches the intended procedure. Correct side/site marked and visible. Medications required for procedure verified. Fire risk assessed and interventions discussed. No implant(s) inserted. Indications: Indications: Pain relief Location: Body area: Trunk Trunk area nerve blocked: serratous anterior plane block. Laterality: Left Pre-procedure details: Skin preparation: 2% chlorhexidine Preparation: Patient was prepped and draped in usual sterile fashion Skin anesthesia (see MAR for exact dosages): Skin anesthesia method: None Procedure details (see MAR for exact dosages): Block needle gauge: 22 G Guidance: ultrasound Anesthetic injected: Bupivacaine 0.25% w/o epi Steroid injected: Dexamethasone Additive injected: None Injection procedure: Anatomic landmarks identified, incremental injection, negative aspiration for blood, introduced needle and anatomic landmarks palpated Paresthesia: None Post-procedure details: Dressing: None Outcome: Pain relieved Patient tolerance of procedure: Tolerated well, no immediate complications ED Course / Clinical Impression ED Course as of 12/26/24 1650 Others' Documentation Wed Dec 26, 2024 1256 Patient is a 79-year-old female who is a transfer from [place]. She apparently had mechanical fall while she was intoxicated. Concerns for alcohol withdrawal. Imaging at outside ED was concerning for multiple left-sided rib fractures as well as a small anterior pneumothorax. [CR] 1546 Local Anesthetic Dosing Calculator from [employer] on 12/26/2024 All calculations should be rechecked by clinician prior to use RESULT SUMMARY: 41.7 mL Max allowable subQ dose of 0.25% bupivacaine (without epi) in a 115-lb patient (104.3 mg bupivacaine) INPUTS: Drug -> 1 = Bupivacaine Weight -> 115 lbs Concentration -> 2.5 = 0.25% [CR] ED Course User Index [CR] Gt Conner DO Clinical Impressions as of 12/26/24 1650 Alcohol withdrawal syndrome with complication (HCC) Closed fracture of multiple ribs of left side, initial encounter Fall, initial encounter Pleural effusion MDM / Disposition / Plan Patient is a 79 y/o female with PMHx HLD, HTN, etoh abuse presenting as a transfer from [place] after a fall at home On arrival to the emergency department patient is noted to be afebrile, tachycardic at 142 BPM, normotensive, 93 % on 2L NC, and in mild distress from pain Evaluation/Plan: Patient given 1 mg ativan and 97.5 mg phenobarbitalat [place], and another 1mg ativan en route by EMS. Patient evaluated upon arrival to ED. Quickly placed on non-rebreather mask for better oxygenation. Patient was tachycardiac with contusion to left arm and frontal scalp. ROM and strength fully intact on arrival. Patient also had decreased lung sounds on left side. Otherwise no acute findings were noted. Patients oxygenation improved to 98% on NRB. Chest XR was ordered to visualize left side pneumothorax. Phenobarbital 65 mg was ordered and placed on CIWA for etoh withdrawal management. 500 mL IV NS given. Trauma surgery contacted regarding further management of patient. Patientconsented and left side serratous anterior plane block administered for pain relief. Patients heart rate quickly improved from 140s to 90s and felt symptom relief. Trauma team accepted for further management and to place left side chest tube Differential Diagnosis: mechanical fall, trauma transfer from [facility], left sided rib 6-9 fracture, small apical left pneumothorax, other injuries ruled out at [place] with CT head/neck/chest/AP, etoh disorder with withdrawal, no acute metabolic derangements noted on labs from [place] Labs/imaging: Chest XR - tiny apical left side pneumothorax All other labs from outside hospital did not indicate acute findings or metabolic derangements Disposition: Based on clinical presentation, ED course, and workup findings, patient was admitted to trauma surgery service for further monitoring and left side chest tube placement Discussed workup findings with patient. Performed shared decision making with patient and pertinent care team regarding plan. Patient voiced understanding of final care plan. Claire Cardenas Emergency Medicine Resident, PGY-1 [facility] Management of the patient was discussed with:admitting team SIGNATURE: Claire Cardenas DO - [1] Social History Tobacco Use Smoking status: Not on file Smokeless tobacco: Not on file Substance and Sexual Activity Alcohol use: Not on file Drug use: Not on file Sexual activity: Not on file CLAIRE CARDENAS 12/26/24 1844 GT CONNER 12/26/24 2216 ED NOTE Observed: 12/26/2024 12:53 PM Status: COMPLETED Source: [facility] HNO ID: [id number] Author: SETH GOLDSTEIN RN Service: ? Author Type: Registered Nurse Type: ED Notes Filed: 12/26/2024 12:53 Note Text: Pt placed on NRB ED NOTE Observed: 12/26/2024 12:52 PM Status: COMPLETED Source: [facility] HNO ID: [id number] Author: SETH GOLDSTEIN RN Service: ? Author Type: Registered Nurse Type: ED Notes Filed: 12/26/2024 12:53 Note Text: 500 mL NS bolus started. VO from Dr. Law. ECG COMPLETE Observed: 12/26/2024 12:48 PM Status: F Source: [facility] Ventricular Rate : 144 BPM Atrial Rate : 144 BPM P-R Interval : 132 ms QRS Duration : 68 ms Q-T Interval : 316 ms QTC Calculation(Bazett) : 489 ms Calculated R [place] : -1 degrees Calculated T [place] : 59 degrees SINUS TACHYCARDIA NONSPECIFIC ST AND T WAVE ABNORMALITY ABNORMAL ECG NO PREVIOUS ECGS AVAILABLE Confirmed by AJRROD CROWDER, DAX ([id number]) on 12/27/2024 11:11:34 PM NAME : CRISTINO MATA PID : [id number] : 1945 Gender : Female Race : ORD : [id number] Procedure Date : Dec 26 2024 12:48:15 Edit Date : Dec 27 2024 23:11:38 Diagnosis: SINUS TACHYCARDIA NONSPECIFIC ST AND T WAVE ABNORMALITY ABNORMAL ECG NO PREVIOUS ECGS AVAILABLE Confirmed by DAX GARAY MD ([id number]) on 12/27/2024 11:11:34 PM Test Reason : Arrhythmia Location : 4 : [facility] EM Overread By : DAX GARAY MD Edited By : DAX GARAY MD Referred By : , Acquired by : ARLEEN BERGERON ED NOTE Observed: 12/26/2024 12:45 PM Status: COMPLETED Source: [facility] HNO ID: [id number] Author: ALBERTO HERRERA, Medic Service: ? Author Type: Web Content Manager and Director Of Enrollment Type: ED Notes Filed: 12/26/2024 12:45 Note Text: Bed: 07-ED Expected date: Expected time: Means of arrival: Comments: [place] transfer trauma c/s 79yo fall etoh ALLERGIES DATE TYPE / CODE NAME / CODE REACTION SEVERITY SOURCE 12/27/2024 Drug Class/586449526( SNOMED CT) MILK CONTAINING PRODUCTS (DAIRY) DIARRHEA [facility] 03/11/2009 Drug Class/049613714( SNOMED CT) PENICILLINS [facility] ENCOUNTERS ADMIT/DISCHARGE ACCOUNT NUMBER ADMITTING ENCOUNTER CLASS LOCATION SOURCE 12/26/2024/ 5 [id number] GT MICHELE (RES) Inpatient Encounter [facility] inRoom : 4209Bed: 01 [facility] PAYERS ENCOUNTER GUARANTOR PAYER SUBSCRIBER SOURCE 12/26/2024 Primary Insuranc e:[place] MEDICAREPolicy Number: [id number] Date:[id number] Name:Eloina VERDUGODOB: [id number] [place] [address] [facility]
[2025-02-11 13:30] LABS: AST(SGOT) 62 U/L (<=31); Alanine Aminotransfer ALT/SGPT 50 U/L (<=34); Albumin, Serum 3.7 g/dL (3.4-4.8); Alkaline Phosphatase 70 U/L (35-104); Anion Gap 12 (5-15); BUN 7 mg/dL (4-19); BUN/Creat Ratio 8.5 RATIO (10-20); Calcium,Total 9.2 mg/dL (7.6-11.0); Carbon Dioxide 22.0 mmol/L (21.0-32.0); Chloride 108 mmol/L (98-108); Globulin 2.4 g/dL (2.2-4.2); Glucose 134 mg/dL (70-99); Potassium 4.0 mmol/L (3.3-5.1)
== END | disposition home or self-care (01) ==
LOC: MFPLAB 10:05
PROVIDERS: PCP Family Medicine; Visit Provider Family Medicine
DX: E87.6 Hypokalemia (principal)
CPT/HCPCS: 36415; 80053

== ENCOUNTER → 2025-02-18 | Outpatient (CLI) | payer MEDICARE, SELFPAY ==
[2025-02-18 12:28] LABS: Hematocrit 37.2 % (37-47); Hemoglobin 12.5 g/dL (12.0-15.0); Immature Granulocytes Count 0.010 X10^3/uL (0.0-0.0); Mean Corp Hgb Conc 33.6 g/dL (32-36); Mean Corpuscular Volume 100.5 fL (81-99); Mean Platelet Vol. 11.2 fl (6.2-12.0); NRBC Flagged by Analyzer 0 % (0-5); Platelet Count 187 K/mm3 (150-450); RBC Distribution Width CV 12.1 % (11.6-14.6); RBC Distribution Width SD 44.8 fl (35.1-43.9); Red Blood Count 3.70 M/mm3 (4.2-5.4); White Blood Count 2.5 K/mm3 (4.4-11.0)
[2025-02-18 12:50] LABS: Anion Gap 12 (5-15); BUN 8 mg/dL (4-19); BUN/Creat Ratio 8.6 RATIO (10-20); Calcium,Total 9.2 mg/dL (7.6-11.0); Carbon Dioxide 22.4 mmol/L (21.0-32.0); Chloride 104 mmol/L (98-108); Glucose 99 mg/dL (70-99); Potassium 4.0 mmol/L (3.3-5.1)
== END | disposition home or self-care (01) ==
LOC: MFPLAB 09:51
PROVIDERS: PCP Family Medicine
DX: K62.5 Hemorrhage of anus and rectum (principal)
CPT/HCPCS: 36415; 80048; 85025

== ENCOUNTER 2025-05-01 13:00 | Outpatient (RCR) | payer MEDICARE, SELFPAY ==
--- NOTE | 2025-02-12 11:33 | HP.PTEVAL ---
Patient's Visit Information Visit Information Visit Information: CRISTINO NOLAN is a 79 year old F referred to Physical Therapy by Dr. Florin Aragon MD with a diagnosis of osteoporosis, rib fx. Date of Evaluation: 02/12/25 Physical Therapist: Florin Hewitt, DPT, OCS, CSCS Visit Plan Frequency: 2x /Week Duration: 4-6 Weeks Plan: 2x/week for 3-6 weeks... Pt to consider AFO, use wh walker which she has at home, focus on lifting L LE with ambulation. Boanace safety Ho reviewed with patient Treat with... 1. ensure utilizing wh walker and considering AFO(Appro[riate for doctor to write order for AFO if she chooses adn check reason for L foot drop) 2. teach home based strenegth for core, hips , L ankle and balance exercises dynamic pregait. Get safe, use pics and work to HEP. Subjective Subjective: Fell at home and doctor wants her to physical therapy. Broke a couple ribs at home adn thinks she caught her foot on the floor. Broke ribs on L side. That fall was November and they are no longer painful. No falls since until she got here today. [place] time [place] after [place] with that fall. fell going into home after the [place]. Lives with son, he works at night. Basic ADLs cooks and dresses, showers in tub but feels bad idea. bathroom I. Spends day watching TV, knitting. Not employed. No regular exercises. Not wanting to go for any treatment and thinks shee will get along well without doctoring. Son drops her off and will pick her up. No numbness in legs, no spinning. Has had L foot drop for months, not sure why. Pain knees: Pain Intensity (Out of 10): 5 Pain Intensity Range: 0 Objective Objective: fell walking back to PT catching foot on floor. Got up with assist. Knee pain but not dysfunctional and not bad. Declines squad(not recommended anyway) or any medical treatmeent, wants to carry on with evaluation. Walks without AD into PT. Does well when doees not catch L foot with and without walker. Trasnfers chair and bed I. Steeps with railing I today reeciprocally. weakness on L and in core throughout noticeable. Has L foot drop with DF AROM to -15 and 3- strength, eversion 3-, inversion 3, PF 3+. R is 3+. knee strength 4-/5 today without increased pain, hip strength 3/5 abd and eext and 3+ flexion B. AROM LE WNL other than L ankle. sensation LE WNL to gross light touch B. reflexes 1/3 patella adn achilles. B Kyphotic t/s but no pain. Hesitant and poor confident on gait but balance systems seem to be working. Pt tolerated eeval well without any concerns about pain or her fall outside of confidencee. Did not want me to tell son about fall or possible beenefits of AFO but will take care of that herself. Balance/Special Test Scores Functional Gait Assessment Score: 20 % Disability: 33.3400 CATSIB Score (Max score 120 seconds): 120 Lower Extremity Functional Score: 58 Goals Goal 1:: Pt I with safe ambulation with LRD. Goal Time Frame: 4-6 Weeks Goal 2:: I appropriate HEP to limit future problems with weakness. Goal Time Frame: 4-6 Weeks Goal 3:: Pt feel 75% better in strength adn mobility Goal Time Frame: 4-6 Weeks Rehabilitation Potential Physical Therapy Diagnosis: pt falling likeely catching L toe and unsafe. Rehabilitation Potential: Questionable Anticipated Interventions Patient/Client Instruction: Educate patient on: Condition and Plan of Care For the Purpose of:: To increase ROM, To improve muscle performance and motor function, To increase tolerance to activity/condition/position, To improve ability of physical actions for home/community/work/leisure and To improve gait and locomotor functions Therapeutic Exercise to Include: Strength training and Gait and locomotor training For the Purpose of:: To increase ROM, To improve nutrient delivery to tissue and To improve muscle performance and motor function Comment: AFO recommended, pt considering. For the Purpose of:: To improve safety Text: Thank you for the opportunity to evaluate your patient. For Medicare and Medicare HMO plans, please review the plan of care and approve it. It will need to be FAXED BACK to us at [phone] for Medicare purposes. For Medicare only, by signing this I certify the plan of care. Please let me know if there are questions or concerns regarding this plan of care. Physician Signature: Date:
--- NOTE | 2025-04-03 10:32 | HP.PTREVAL_ITS ---
Re-Evaluation Intro: Dr. Florin Aragon MD, It has been my pleasure to treat CRISTINO NOLAN over the last 8 visits for osteoporosis, rib fx. Please see the progress note below for an update on the physical therapy plan of care! Subjective Subjective: Not falling on face anymore. Had on fall on Kitchen floor one night. She tripped on steps and hit ground and was ablee to gt up herself. Does not use AD at home or much outsid of therapy. Wasn't paying enough at tention. HEP: trying to do 2-3x/wek but noncompliant ofteen. , too busy to do more. Not as good as I should be. Has not vaccuumed yet and dos not feel comfortable with lifting it. Objective Objective/Function: FGa is +4. Walkign well today and reciprocal on steps w3ith one rail. not overly compliant with HEP and indecisivie if she can continue at home with walking etc. Wants to continue to more aggressive home bound HEP Plan Plan Plan: 2x/week for 2-4 weeks to mid April as needed, new pOC and same goals appropriate with Fair prognosis with compliance. Focus on stadning HEP with pics as safety aklkows(squats, abd, heel raises, side step, marching, balancerows, shoulder press. all with pics to I. Balance/Gait/Functional tests Balance/Special Test Scores Functional Gait Assessment Score: 24 % Disability: 20.0000 CATSIB Score (Max score 120 seconds): 120 Lower Extremity Functional Score: 26 Goals Goals Goal 1:: Pt I with safe ambulation with LRD. Goal Time Frame: 4-6 Weeks Goal Progress: Goal Met Goal 2:: I appropriate HEP to limit future problems with weakness. Goal Time Frame: 4-6 Weeks Goal Progress: is minimal, approp Goal 3:: Pt feel 75% better in strength adn mobility Goal Time Frame: 4-6 Weeks Goal Progress: 25%, approp Goal 4:: I standing HEP safly for strength Goal Time Frame: 2-4 Weeks Anticipated Interventions Anticipated Interventions Patient/Client Instruction: Educate patient on: Condition and Plan of Care For the Purpose of:: To increase ROM, To improve muscle performance and motor function, To increase tolerance to activity/condition/position, To improve ability of physical actions for home/community/work/leisure and To improve gait and locomotor functions Therapeutic Exercise to Include: Strength training and Gait and locomotor training For the Purpose of:: To increase ROM, To improve nutrient delivery to tissue and To improve muscle performance and motor function Comment: AFO recommended, pt considering. For the Purpose of:: To improve safety Re-Evaluation Ending Re-evaluation ending: Please do not hesitate to contact me at [phone] by phone or if you have questions or concerns regarding this new plan of care! Sincerely, Florin Hewitt, DPT, OCS, CSCS
--- NOTE | 2025-05-01 13:46 | HP.PTDCSUM ---
Discharge Summary D/C summary: It has been my pleasure to treat CRISTINO NOLAN referred by Dr. Florin Aragon MD, with the diagnosis of osteoporosis, rib fx for a total of 11 visit(s). Discharge Date: 05/01/25 Please see the following information for a summary of their discharge status. Subjective Subjective: Has not fallen any more. Still lots of aches and pains in shoulders. Ribs are better but not perfect and to 4/10 intermittently.. B shoulder sorenss is there often at 6/10. Sleep is OK. HEP not often maybe a couple kristal per week. Vaccuumd yesterday without too many issues outside of fatigue. Saw Dr. Aragon last week as f/u and no changes except changed heart meds. Pain knees: Pain Intensity (Out of 10): Unrated L ribs: Pain Intensity (Out of 10): 0 Overall Improvement % Improvement: 60 Objective Objective/Function: Walking wll, exits chair without UE. steps with one rail reciprocally. Goals Goal 1:: Pt I with safe ambulation with LRD. Goal Progress: Goal Met Goal 2:: I appropriate HEP to limit future problems with weakness. Goal Progress: Goal Met Goal 3:: Pt feel 75% better in strength adn mobility Goal Progress: 60% Goal 4:: I standing HEP safly for strength Goal Progress: Goal Met Plan Plan: d/c to HEP D/C Information d/c sentence: If there are questions or concerns regarding this patient's physical therapy, please feel free to call me at [phone]. Thank you for the referral of this patient. Sincerely, Florin Hewitt, DPT, OCS, CSCS Balance/Gait/Functional tests Balance/Special Test Scores Functional Gait Assessment Score: 25 % Disability: 16.6700 CATSIB Score (Max score 120 seconds): 120 Oswestry Low Back Score: 11 Lower Extremity Functional Score: 26 Improvement % Improvement: 60
== END 2025-05-01 19:00 | disposition home or self-care (01) ==
LOC: PT 13:00
PROVIDERS: PCP Family Medicine; Referring Provider Family Medicine; Visit Provider Family Medicine
DX: M80.0AXD Age-related osteoporosis with current pathological fracture, other site, subsequent encounter for fracture with routine healing (principal)
CPT/HCPCS: 97110; 97116; 97162; 97164